=== PATIENT | female | born 1965 | race Caucasian/White ===

== ENCOUNTER 2023-07-02 13:30 | Emergency (ER) | payer OTHER, MEDICARE, SELFPAY ==
[2023-07-02 13:33] VITALS: BP 167/80; PULSE 95; RESP 16; TEMP 36.7; O2SAT 97; BMI 29.4
--- NOTE | 2023-07-02 14:00 | ED.GENADULT ---
HPI - General Adult General Chief complaint: Nausea/Vomiting Stated complaint: Nausea, fluttering heartbeat Time Seen by Provider: 07/02/23 13:43 History of Present Illness HPI narrative: Patient is a 57-year-old female who has a history of Jama's esophagus. She has been diagnosed with an EGD at [facility]. She is scheduled to have an EGD in the next 2-3 weeks but she has had persistent discomfort in epigastrium similar to when she had Jama's flare, she has tried multiple proton pump inhibitors, currently she is on Protonix. She thought for a while she the omeprazole might have been making her have more stomach pain. She has a good amount of anxiety with this whole episode. It makes her feel like she gets carbonation in her throat and that she is somewhat choking. She does not really describe any swallowing difficulty or blockage of food. She is on Coumadin for blood clots in the past and does have Lovenox at home that she can transition to if they are going to do an EGD. She is hoping to get an EGD sooner than the next few weeks. She also reports she has rheumatoid arthritis, and antiphospholipid antibody. She has had blood clots in is in the form of DVT and she is on Coumadin and can transition to Lovenox. She spent 7 hours in the ED within the last few weeks and got some Ativan. She had multiple assessments in basically was set up to see another EGD physician. Related Data Home Medications Medication Instructions Recorded Confirmed fentanyl .ROUTE 07/02/23 hydrochlorothiazide PO 07/02/23 hydromorphone 2 mg tablet 2 mg PO Q6H 07/02/23 07/02/23 (Dilaudid) hyoscyamine sulfate PO 07/02/23 lorazepam 1 mg tablet (Ativan) 1 mg PO DAILY 07/02/23 07/02/23 warfarin 5 mg tablet (Jantoven) 5 mg PO DAILY 07/02/23 07/02/23 warfarin 7.5 mg tablet (Jantoven) 7.5 mg PO DAILY 07/02/23 07/02/23 zolpidem 5 mg tablet (Ambien) 5 mg PO QHS 07/02/23 07/02/23 Allergies Allergy/AdvReac Type Severity Reaction Status Date / Time buprenorphine [From Butrans] Allergy Unknown Verified 07/02/23 13:38 ketorolac [From Toradol] Allergy Unknown Verified 07/02/23 13:38 Review of Systems Status of ROS: Reports: 6 or more systems reviewed and unremarkable except as noted in History and below Exam Narrative: Exam Narrative: Objective: Patient is very anxious Her vital signs show slightly elevated blood pressure, she is afebrile, O2 sats 97% on room air HEENT is unremarkable, throat is clear Neck is supple Pulses regular Abdomen benign soft Extremities are no edema neurologic nonfocal Const: Vital Signs, click to edit/add: Vital Signs - 24 hr 07/02/23 13:33 Temperature 98.1 F Pulse Rate [Pulse Oximeter] 95 Respiratory Rate 16 Blood Pressure [Ri ght Upper Arm] 167/80 H Pulse Oximetry 97 Oxygen Delivery Me thod Room Air Course Vital Signs Vital signs: Initial Vital Signs Temperature 98.1 F 07/02/23 13:33 Temperature Source Temporal Artery Scan 07/02/23 13:33 Pulse Rate 95 07/02/23 13:33 Respiratory Rate 16 07/02/23 13:33 Blood Pressure 167/80 H 07/02/23 13:33 Blood Pressure Mean 109 H 07/02/23 13:33 Blood Pressure Position Sitting 07/02/23 13:33 Pulse Oximetry 97 07/02/23 13:33 Oxygen Delivery Method Room Air 07/02/23 13:33 Vital Signs Temperature 98.1 F 07/02/23 13:33 Pulse Rate 95 07/02/23 13:33 Respiratory Rate 16 07/02/23 13:33 Blood Pressure 167/80 H 07/02/23 13:33 Pulse Oximetry 97 07/02/23 13:33 Oxygen Delivery Method Room Air 07/02/23 13:33 Temperature 98.1 F 07/02/23 13:33 Pulse Rate 95 07/02/23 13:33 Respiratory Rate 16 07/02/23 13:33 Blood Pressure 167/80 H 07/02/23 13:33 Pulse Oximetry 97 07/02/23 13:33 Oxygen Delivery Method Room Air 07/02/23 13:33 Medical Decision Making MDM Narrative Medical decision making narrative: [age] year white female with rheumatoid arthritis, antiphospholipid antibody syndrome, currently on Coumadin, with history of Jama's esophagus and persistent esophagitis type symptoms. She is describing a carbonated feeling in her throat and some congestion, she really does not have heartburn or chest pain, does not really have acid taste in her mouth gets the carbonated feeling. It would seem that prompt EGD would be appropriate. Will see what we can set up for her, at this point I think continuing her present medications seem reasonable. Addendum 2:15 p.m.: The patient feels markedly better knowing that an EGD will be scheduled for her on Friday. She will stop her Coumadin today start Lovenox as planned from her sequins spooler twice a day until 24 hours before her EGD and then will stop it. Instructions will be coming from the EGD department now. Follow-up as per recommendation from the endoscopist. Patient was comfortable this plan and feels that will help her, should continue to take as needed nausea medicine. And continue Protonix. Discharge Plan Discharge Clinical Impression: Esophagitis, Jama's esophagus Patient Disposition: Home w/ Parent or Adult Condition: Stable Additional Instructions: Your EGD is scheduled on 07/07 with an 11:15am procedure time. Please arrive at 10:45am to check in. Enter through the ER and take a left to the [facility]. If you have any questions or need to reschedule, please call [phone]. Stop the Coumadin today on recommendations of EGD Department, would start Lovenox tomorrow twice a day in therapeutic dose, discussed with with your hematology provider. Would also recommend that he stop the Lovenox 24 hours before your EGD. This is again per our EGD physician. Continue your nausea and acid medicine. May use Ativan as needed. Activity Level: Light activity Discharge Diet: Full Liquid Diet Detail: Advance diet as tolerated Prescriptions: No Action fentanyl .ROUTE hydromorphone [Dilaudid] 2 mg tablet 2 mg PO Q6H zolpidem [Ambien] 5 mg tablet 5 mg PO QHS Rx Instructions: may repeat once if no response in 30-60 minutes lorazepam [Ativan] 1 mg tablet 1 mg PO DAILY hyoscyamine sulfate PO hydrochlorothiazide PO warfarin [Jantoven] 5 mg tablet 5 mg PO DAILY warfarin [Jantoven] 7.5 mg tablet 7.5 mg PO DAILY Stand Alone Forms: [facility] Info Instructions
--- OUTSIDE RECORDS SUMMARY | 2023-07-02 14:24 | XMS_ITS | Encounter Summary ---
Author Name Unknown Organization [facility] Address [address] [place] [address] Care Team Providers Care Sweet Pickle Maker Name Role Phone Navdeep Waldron MD Unavailable [phone] Shankar Peñaloza MD Primary Care Provider Shankar Peñaloza MD Unavailable [phone] Richardson Alberts PA-C Unavailable [phone] Shankar Peñaloza MD Unavailable [phone] Marielena Sunshine PA-C Unavailable [phone] Radha Rivas Unavailable Unavailable Marielena Sunshine PA-C Unavailable 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 [facility] Unavailable Reason for Referral * Mental Health Outpatient (Routine: Next available opening) - Pending Review Specialty Diagnoses / Procedures Referred By Arlet t Referred To Contact Behavioral Health Diagnoses Severe episode of recurrent major depressive disorder, without psychotic features (H) Liz Mercado PA-C [address] [place] [address] Referral ID Status Reason Start Date Expiration Date V isits Requested Visits Authorized [id number] Pending Review 06/25/2023 06/24/2024 1 1 Question Answer Services: Psychiatry/Med Management Reason for Referral - REVIEW REFERENCE LINK BELOW: Short-term consultation & return to PCP/Collaborative Care (CCPS) My Clinical Question Is: Has been on many medications and history of seratonin syndrome Scheduling Instructions: [facility] will call you to coordinate your care as prescribed by your provider. If you don't hear from a sales representatives within 2 business days, please call . Comments Please be aware that coverage of these services is subject to the terms and limitations of your health insurance plan. Call member services at your health plan with any benefit or coverage questions. [facility] will call you to coordinate your care as prescribed by your provider. If you don't hear from a sales representatives within 2 business days, please call . GER * Consultation (Routine: Next available opening) - Pending Review Specialty Diagnoses / Procedures Referred By Arlet felton Referred To Contact Gastroenterology Diagnoses 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 Globus sensation Liz Mercado PA-C [address] [place] [address] [address] Referral ID Status Reason Start Date Expiration Date V isits Requested Visits Authorized [id number] Pending Review 06/25/2023 06/24/2024 1 1 Question Answer Reason for Referral: Esophageal Disorders Scheduling Instructions: [facility] will call you to coordinate your care as prescribed by the provider. If you don? t hear from a sales representatives within 2 business days, please call . Comments Please be aware that coverage of these services is subject to the terms and limitations of your health insurance plan. Call member services at your health plan with any benefit or coverage questions. [facility] will call you to coordinate your care as prescribed by the provider. If you don? t hear from a sales representatives within 2 business days, please call . GER Reason for Visit * Reason Comments ER F/U 1. Follow up 023GI concerns, needing an antacid, c/o choking sensation Anxiety 2. Needing medicatio n or refill Encounter Details Date Type Department Care Team (Late st Contact Info) Description 06/25/2023 10:00 AM BLUNGER Office Visit [facility] [id number] [place] [phone] Liz Mercado PA-C [id number] [place] [id number] 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); Globus sensation; Severe episode of recurrent major depressive disorder, without psychotic features (H); Nausea and vomiting in adult; Epigastric pain; Anxiety; Serotonin syndrome; Rheumatoid arthritis involving multiple sites, unspecified whether rheumatoid factor present (H); Anti-phospholipid antibody syndrome (H24) Social History Tobacco Use Types Packs/Day Years Used Date Smoking Tobacco: Former Cigarettes Q uit: 02/12/2021 Smokeless Tobacco: Never Tobacco Cessation:Counseling Given: Not Answered Alcohol Use Standard Drinks/Week Comments No 0 (1 standard drink = 0.6 oz pur e alcohol) PHQ-2 Answer Date Recorded PHQ-2 Score 6 06/23/2023 Adolescent Education Answer Date Record ed Getting School Help Needed Not on file 03/10 Food Insecurity Answer Date Recorded Within the past 12 months, d id you worry that your food would run out before you got money to buy more? No 06/11/2023 Within the past 12 months, d id the food you bought just not last and you didn? t have money to get more? No 06/11/2023 Housing Stability Answer Date Recorded Do you have housing? Yes 06/11/2023 Are you worried about losing your housing? No 06/11/2023 Financial Resource Strain Answer Date R ecorded Within the past 12 months, h ave you or your family members you live with been unable to get utilities (heat, electricity) when it was really needed? No 06/11/2023 Transportation Needs Answer Date Record ed Within the past 12 months, h as lack of transportation kept you from medical appointments, getting your medicines, non-medical meetings or appointments, work, or from getting things that you need? No 06/11/2023 Interpersonal Safety Answer Date Record ed Do you feel physically and e motionally safe where you currently live? Yes 03/11/2023 Within the past 12 months, h ave you been hit, slapped, kicked or otherwise physically hurt by someone? No 03/11/2023 Within the past 12 months, h ave you been humiliated or emotionally abused in other ways by your partner or ex-partner? No 03/11/2023 Sex and Gender Information Value Date Recorded Sex Assigned at Not on file Gender Identity Not on file Sexual Orientation Not on file documented as of this encounter Last Filed Vital Signs Vital Sign Reading Time Taken Comments Blood Pressure 128/84 06/25/2023 9:53 AM BLUNGER Pulse 79 06/25/2023 9:53 AM BLUNGER Temperature 36.8 ??C (98.2 ??F) 06/25/2023 9:53 AM CS T Respiratory Rate 15 06/25/2023 9:53 AM BLUNGER Oxygen Saturation 96% 06/25/2023 9:53 AM BLUNGER Inhaled Oxygen Concentration - - Weight 85.8 kg (189 lb 3.2 oz) 06/25/2023 9:53 A M BLUNGER Height 168.9 cm (5' 6.5) 06/25/2023 9:53 AM BLUNGER Body Mass Index 30.08 06/25/2023 9:53 AM BLUNGER documented in this encounter Patient Instructions * Patient Instructions* Liz Mercado PA-C - 06/25/2023 10:00 AM BLUNGER Referral to Behavioral Health Clinician (BHC)- Radha Rivas or Karina During our visit, I encouraged you talk with our Behavioral Health Clinician (BHC). A BHC would be a great addition to your care team and will support your whole health! What is a Behavioral Health Clinician (BHC)? A BHC is a licensed mental health therapist. They can help you when behaviors, emotions, stress or worries get in the way of your life or health. Your BHC will work with you and your primary care team. Together, you'll come up with a unique care plan that works for you! What will happen when I meet with a [facility]? [facility] ask questions to better understand your concerns. They will provide brief, solution-focused therapy. They can also make referrals to a specialty therapist or other services to help you reach your goals. How do I schedule an appointment with the [facility]? Call and ask for a [facility] appointment. How much time will I spend with the [facility]? First visits are 45-60 minutes. Return visits are typically 20-30 minutes. How does billing work? Outpatient mental health services are billed to insurance. Most plans don't charge a second co-pay if you see your primary care provider (PCP) the same day. Please verify your coverage and ask about your copay. GER * Attachments The following attachments cannot be sent through Care Everywhere. * Acid-Reducing Medicines: General Info (Citizen [place]) documented in this encounter Progress Notes * Liz Mercado PA-C - 06/25/2023 10:00 AM CST Assessment & Plan 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 Seeing [facility] tomorrow. Referral placed and will be faxed for patient. Increased pantoprazole to twice daily and added Pepcid. Reviewed the medications used for reflux with patient so she knows how they work and when to use. - Adult GI Drywall Taper Helper Referral - Consult Only; Future - pantoprazole (PROTONIX) 40 MG EC tablet; Take 1 tablet (40 mg) by mouth 2 times daily - famotidine (PEPCID) 20 MG tablet; Take 1-2 tablets (20-40 mg) by mouth 2 times daily as needed (reflux, globus sensation) Globus sensation As noted above. - Adult GI Drywall Taper Helper Referral - Consult Only; Future - famotidine (PEPCID) 20 MG tablet; Take 1-2 tablets (20-40 mg) by mouth 2 times daily as needed (reflux, globus sensation) Severe episode of recurrent major depressive disorder, without psychotic features (H) Referral to short term psychiatry placed. She has had pharmacogenetics testing previously at her last psychiatrist. We will obtain records. RYAN completed today. - Adult Mental Health Drywall Taper Helper Referral; Future Nausea and vomiting in adult Compazine seems to be the only thing that helps with nausea. Refilled for her today. - prochlorperazine (COMPAZINE) 10 MG tablet; Take 1 tablet (10 mg) by mouth every 6 hours as neededfor nausea or vomiting Epigastric pain As noted above. - prochlorperazine (COMPAZINE) 10 MG tablet; Take 1 tablet (10 mg) by mouth every 6 hours as neededfor nausea or vomiting Anxiety Reviewed the risks with Ativan use along with narcotics and provided Narcan for patient. I recommended not using the lorazepam with the hydromorphone. She states understanding and reports she has been told this previous. Agrees to picker and packer the Narcan to have on hand at home. She is using the Ativan sparingly (has a few tablets left still from the ER visit 2 weeks ago. - LORazepam (ATIVAN) 1 MG tablet; Take 0.5 tablets (0.5 mg) by mouth every 8 hours as needed for anxiety, vomiting or nausea - naloxone (NARCAN) 4 MG/0.1ML nasal spray; [place] 1 spray (4 mg) into one nostril alternating nostrils as needed for opioid reversal every 2-3 minutes until assistance arrives Serotonin syndrome History of serotonin syndrome in the past. Has had difficulty with medications for anxiety/depression. Rheumatoid arthritis involving multiple sites, unspecified whether rheumatoid factor present (H) Follows rheumatology. Anti-phospholipid antibody syndrome (H24) Has had multiple blood clots in the past, on Warfarin. Review of external notes as documented elsewhere in note Review of the result(s) of each unique test - labs from the ER Prescription drug management 48 minutes spent by me on the date of the encounter doing chart review, history and exam, documentation and further activities per the note MED REC REQUIRED Post Medication Reconciliation Status: Discharge medications reconciled and changed, see notes/orders Subjective Genevieve is a 57 year old, presenting for the following health issues: ER F/U (1. Follow up 06/05/2023/GI concerns, needing an antacid, c/o choking sensation ) and Anxiety (2. Needing medication or refill) 06/25/2023 9:48 AM Additional Questions Roomed by Inocencia Accompanied by Self Anxiety History of Present Illness Mental Health Follow-up: Patient presents to follow-up on Depression & Anxiety.Patient's depression since last visit has been: No change The patient is not having other symptoms associated with depression. Patient's anxiety since last visit has been: Worse The patient is having other symptoms associated with anxiety. Any significant life events: No Patient is feeling anxious or having panic attacks. Patient has no concerns about alcohol or drug use. She eats 2-3 servings of fruits and vegetables daily.She consumes 1 sweetened beverage(s) daily.Sheexercises with enough effort to increase her heart rate 60 or more minutes per day. She exercises with enough effort to increase her heart rate 4 days per week. She is taking medications regularly. ED/UC Followup: Facility: [facility] [place] Date of visit: 06/05/2023 Reason for visit: Oral Swelling Palpitations Current Status: Worsening Concern - GI and Anxiety concerns Onset: Description: Request refills and will like GI and anxiety concerns Intensity: moderate Progression of Symptoms: same Accompanying Signs & Symptoms: Previous history of similar problem: Precipitating factors: Worsened by: Alleviating factors: Improved by: Therapies tried and outcome: lorazepam Patient is a 57-year-old female with history of Jama's esophagus, anxiety, hypertension, DVT/PE anticoagulated on Coumadin who presents today for follow-up from the ER. Patient seen and evaluated in the ER on 06/05/2023 with nausea, anxiety and the sensation that her throat is closing. Per ER note patient had been using Compazine and Zofran as needed with no significant relief. She reported she was able to swallow and drink water without difficulty but felt like her throat was closing. She has tried Pepcid and Protonix without relief. Per ER note patient also reported some chest pressure. Patient had EKG, BMP, CBC and troponin obtained in the ER. All testing was grossly normal except BMPshowed a mildly elevated creatinine. Patient was encouraged to follow-up closely with primary care and new referral placed to GI. Patient did not tolerate omeprazole (had side effects). She was switched to pantoprazole 40 mg oncedaily. She is wondering if twice daily dosing would be helpful. She continues to have constant nausea with occasional vomiting in the past week. Lorazepam helps but also causing some sedation. ROS GENERAL: No fevers GI: As noted in HPI Objective BP 128/84 (BP Location: Left arm, Patient Position: Sitting, Cuff Size: Adult Regular) Pulse 79 Temp 98.2 ??F (36.8 ??C) (Oral) Resp 15 Ht 1.689 m (5' 6.5) Wt 85.8 kg (189 lb 3.2 oz) SpO2 96% BMI 30.08 kg/m?? Body mass index is 30.08 kg/m??. Physical Exam GENERAL: No acute distress, speaking in complete sentences, no difficulty breathing HEENT: Normocephalic NEURO: Alert and non-focal PSYCH: Anxious affect, tearful at times. Signed Electronically by: Liz Mercado PA-C GER documented in this encounter Plan of Treatment Upcoming Encounters Date Type Department Care Team (Late st Contact Info) Description 07/16/2023 3:30 PM BLUNGER Office Visit [facility] [id number] [place] [address] Shankar Peñ[place] [address] [place] [address] [place] [address] 2023 3:00 PM BLUNGER Virtual Visit [facility] [address] [place] [address] 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, [facility] [address] [place] [address] 08/13/2023 2:30 PM BLUNGER Office Visit [facility] [address] [place] [address] [place] [address] [place] [address] Scheduled Referrals Name Type Priority Associated Diagnoses Orde r Schedule Adult GI Drywall Taper Helper Referral - Consult Only Referral Routine: Next available opening 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 Globus sensation Expected: 06/25/2023 (Approximate), Expires: 06/25/2024 Adult Mental Health Drywall Taper Helper Referral Referral Routine: Next available opening Severe episode of recurrent major depressive disorder, without psychotic features (H) Expected: 06/25/2023 (Approximate), Expires: 06/25/2024 documented as of this encounter Visit Diagnoses Diagnosis 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- Primary Jama's esophagus Globus sensation Gastrointestinal malfunction arising from mental factors Severe episode of recurrent major depressive disorder, without psychotic features (H) Nausea and vomiting in adult Nausea with vomiting Epigastric pain Abdominal pain, epigastric Anxiety Anxiety state, unspecified Serotonin syndrome Other extrapyramidal disease and abnormal movement disorder Rheumatoid arthritis involving multiple sites, unspecified whether rheumatoid factor present (H) Anti-phospholipid antibody syndrome (H24) Primary hypercoagulable state documented in this encounter Additional Health Concerns Assessment Noted Time PHQ-9 Depression Total Score: 22 024 9:33 AM BLUNGER documented as of this encounter Care Teams Sweet Pickle Maker Relationship Specialty Start Date End Date Shankar Peñaloza MD [address] [place] [address] ROBINA LOYA [address] PCP - General Internal Medicine 09/25/13 Navdeep Waldron MD [facility] [address] [place] [address] Physical Medicine & Rehabilitation - Pain Medicine 07/07/13 Shankar Peñaloza MD [address] [place] [address] ROBINA LOYA [address] Assigned PCP 07/22/16 Richardson Alberts PA-C [address] [place] [address] Physician Environmental Protection Economist Gastroenterology 03/01/22 Shankar Peñaloza MD [address] [place] [address] ROBINA LOYA [address] Assigned Pain Medication Provider 06/17/22 Marielena Sunshine PA-C [address] [facility] [address] [place] [address] Physician Environmental Protection Economist Urology 10/03/22 Radha Rivas Personal Advocate & Liaison (PAL) 11/26/22 Marielena Sunshine PA-C [address] [facility] [address] [place] [address] Assigned Surgical Provider 12/07/22 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 LICSW [address] [place] [address] Shoe Coverer Shoe Coverer - Clinical 06/23/23 documented as of this encounter
--- OUTSIDE RECORDS SUMMARY | 2023-07-02 14:24 | XMS_ITS | Clinical Summary ---
Author Name Unknown Organization [facility] Address [address] [place] [address] Care Team Providers Care Berry Planter Name Role Phone Navdeep Waldron MD Unavailable [phone] Shankar Peñaloza MD Primary Care Provider Shankar Peñaloza MD Unavailable [phone] Richardson Alberts PA-C Unavailable [phone] Shankar Peñaloza MD Unavailable [phone] Marielena Sunshine PA-C Unavailable Radha Rivas Unavailable Unavailable Marielena Sunshine PA-C Unavailable 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 [facility] Unavailable Allergies Active Allergy Reactions Criticality Noted Date Comments Buprenorphine Diarrhea 05/18/2012 Colitis issue -severe . Did not feel well at all on this med. Ketorolac Tromethamine Swelling 05/22/2009 Medications Medication Sig Dispensed Refills Start Date End Date Status Fexofenadine HCl (ARNAV PO) Take 180 mg by mouth daily as needed 0 Active senna (SENOKOT) 8.6 MG tablet Take 1 tablet by mouth every evening 0 Active warfarin ANTICOAGULANT (COUMADIN) 10 MG tablet Take by mouth See Admin Instructions Monitors Chromogenic Factor X via [facility] Alternates between 10 mg and 7.5 mg 0 Active hydrocortisone (WESTCORT) 0.2 % external creamIndications: Dermatitis Apply sparingly to affected area three times daily as needed. 60 g 1 1 Active ondansetron (ZOFRAN ODT) 4 MG ODT tabIndications:Na usea and vomiting in adult,Epigastric pain Take 1 tablet (4 mg) by mouth every 8 hours as needed for nausea 30 tablet 0 2 Active triamcinolone (KENALOG) 0.1 % external creamIndications: Dermatitis Apply topically 2 times daily 30 g 0 3 Active clotrimazole-beta methasone (LOTRISONE) 1-0.05 % external creamIndications: Anal fissure Apply topically 2 times daily as needed (fissure) 30 g 1 3 Active ipratropium (ATROVENT) 0.06 % nasal sprayIndications: Acute recurrent pansinusitis [place] 2 sprays into both nostrils 4 times daily 15 mL 0 3 Active zolpidem (AMBIEN) 5 MG tabletIndications :Primary insomnia Take 1 tablet (5 mg) by mouth every evening as needed for sleep 30 tablet 5 3 Active hydrochlorothiazi de (HYDRODIURIL) 12.5 MG tabletIndications :Benign essential hypertension TAKE 1 TABLET(12.5 MG) BY MOUTH DAILY 90 tablet 0 4 Active HYDROmorphone (DILAUDID) 2 MG tabletIndications :Fibromyalgia Take 1 tablet (2 mg) by mouth every 6 hours as needed for severe pain 80 tablet 0 4 Active fentaNYL (DURAGESIC) 25 mcg/hr 72 [address] patchIndications: Fibromyalgia Place 1 patch onto the skin every 72 hours remove old patch. 10 patch 0 4 Active pantoprazole (PROTONIX) 40 MG EC tabletIndications :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 Take 1 tablet (40 mg) by mouth 2 times daily 180 tablet 1 4 Active famotidine (PEPCID) 20 MG tabletIndications :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,Globus sensation Take 1-2 tablets (20-40 mg) by mouth 2 times daily as needed (reflux, globus sensation) 180 tablet 1 4 Active prochlorperazine (COMPAZINE) 10 MG tabletIndications :Nausea and vomiting in adult,Epigastric pain Take 1 tablet (10 mg) by mouth every 6 hours as needed for nausea or vomiting 30 tablet 1 4 Active naloxone (NARCAN) 4 MG/0.1ML nasal sprayIndications: Anxiety [place] 1 spray (4 mg) into one nostril alternating nostrils as needed for opioid reversal every 2-3 minutes until assistance arrives 0.2 mL 1 4 Active LORazepam (ATIVAN) 1 MG tabletIndications :Anxiety Take 0.5 tablets (0.5 mg) by mouth every 8 hours as needed for anxiety, vomiting or nausea 12 tablet 0 4 Active naloxone (NARCAN) 4 MG/0.1ML nasal sprayIndications: Fibromyalgia [place] 1 spray (4 mg) into one nostril alternating nostrils as needed for opioid reversal every 2-3 minutes until assistance arrives 0.2 mL 1 0 024 Discontinued(Re order (No AVS)) prochlorperazine (COMPAZINE) 10 MG tabletIndications :Infection due to 2019 novel coronavirus,Nause a and vomiting in adult,Epigastric pain Take 1 tablet (10 mg) by mouth every 6 hours as needed for nausea or vomiting 20 tablet 0 2 024 Discontinued(Re order (No AVS)) pantoprazole (PROTONIX) 40 MG EC tabletIndications :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 TAKE 1 TABLET(40 MG) BY MOUTH DAILY 90 tablet 0 3 024 Discontinued(Re order (No AVS)) amoxicillin (AMOXIL) 875 MG tabletIndications :Bacterial sinusitis Take 1 tablet (875 mg) by mouth 2 times daily 14 tablet 0 3 024 Discontinued(Th erapy completed (No AVS)) prochlorperazine (COMPAZINE) 10 MG tablet Take 1 tablet (10 mg) by mouth every 6 hours as needed for nausea or vomiting 20 tablet 0 3 024 Discontinued hydrochlorothiazi de (HYDRODIURIL) 12.5 MG tabletIndications :Benign essential hypertension TAKE 1 TABLET(12.5 MG) BY MOUTH DAILY 30 tablet 0 3 024 Discontinued HYDROmorphone (DILAUDID) 2 MG tabletIndications :Fibromyalgia Take 1 tablet (2 mg) by mouth every 6 hours as needed for severe pain 80 tablet 0 3 024 Discontinued(Re order (No AVS)) fentaNYL (DURAGESIC) 25 mcg/hr 72 hr patchIndications: Fibromyalgia Place 1 patch onto the skin every 72 hours remove old patch. 10 patch 0 3 024 Discontinued(Re order (No AVS)) FLUoxetine (PROZAC) 10 MG capsuleIndication s:Severe episode of recurrent major depressive disorder, without psychotic features (H) Take 1 capsule (10 mg) by mouth daily 30 capsule 0 3 024 Discontinued LORazepam (ATIVAN) 1 MG tablet Take 1 tablet (1 mg) by mouth every 8 hours as needed for anxiety, vomiting or nausea 12 tablet 0 3 024 Discontinued(Re order (No AVS)) FLUoxetine (PROZAC) 10 MG capsuleIndication s:Severe episode of recurrent major depressive disorder, without psychotic features (H) TAKE 1 CAPSULE(10 MG) BY MOUTH DAILY 30 capsule 0 4 024 Discontinued(St opped by Patient (No AVS)) Active Problems Problem Noted Date Diagnosed Date Fibromyalgia 01/21/2023 Jama's esophagus 06/06/2021 Vertigo 04/26/2019 Chronic pain syndrome 12/19/2015 Overview: Patient is followed by SHANKAR PEÑALOZA for ongoing prescription of pain medication. All refills should be approved by this provider, or covering partner. Medication(s): Fentanyl patch, Hydromorphone, Zolpidem. Maximum quantity per month: 10, 60, 30 Clinic visit frequency required: Q 6 months Controlled substance agreement: December 19, 2015 Pain Clinic evaluation in the past: [facility] website verification: Done on 04/30/19 Depression 11/14/2014 Esophageal reflux 08/12/2014 Hypertension 02/28/2014 Insomnia 12/31/2013 Chronic headaches 09/21/2013 Overview: Dr. Yu - neurology DDD (degenerative disc disease), cervical 2013 Overview: Menopause 09/21/2013 Rheumatoid arthritis 09/21/2013 Anxiety state 09/21/2013 Personal history of DVT (deep vein thrombosis) 0 09/21/2013 Colitis 05/06/2012 Anti-phospholipid antibody syndrome (H24) Overview: Dr. Arya RSOS Resolved Problems Problem Noted Date Diagnosed Date Resolved Date Osteoarthritis of left knee, unspecified osteoarthritis type 12/18/2021 01/22/2022 CARDIOVASCULAR SCREENING; LD L GOAL LESS THAN 100 04/08/2010 01/21/2023 florencio [facility] 05/10/2005 0 09/21/2013 Encounters Date Type Department Care Team Description 06/25/2023 10:00 AM FINISH OFF OPERATOR Office Visit [address] [address] Liz Mercado, PADeirdre 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); Globus sensation; Severe episode of recurrent major depressive disorder, without psychotic features (H); Nausea and vomiting in adult; Epigastric pain; Anxiety; Serotonin syndrome; Rheumatoid arthritis involving multiple sites, unspecified whether rheumatoid factor present (H); Anti-phospholipid antibody syndrome (H24) 06/25/2023 Travel 06/23/2023 10:00 AM FINISH OFF OPERATOR Virtual Visit [facility] [address] [address] Koko Tracey MD [place], Spec[place], [facility] Severe episode of recurrent major depressive disorder, without psychotic features (H) 06/23/2023 FCC Extended Documentation [facility] [address] [address] 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 06/20/2023 MyC Medical Advice [address] [address] Koko Tracey MD MyChart Communication (Appointment/) 06/20/2023 [facility]ill [facility] [address] [place] [address] Koko Tracey MD Medication Refill 06/17/2023 MyC Refill [facility] [address] [place] [address] Shankar Peñaloza MD Refill Request 06/11/2023 Marco Antonio Medical Advice [facility] [address] [place] [address] Suzi Yao MA 06/10/2023 Refill [facility] [address] [place] [address] Koko Tracey MD Medication Refill 06/05/2023 4:33 PM FINISH OFF OPERATOR - 06/05/2023 6:04 PM FINISH OFF OPERATOR Emergency [facility] Emergency Dept [address] [place] [address] [place] [address] Ulises Orozco MD Globus sensation; Nausea; History of Jama's esophagus; Anxiety Discharge Disposition: Home or Self Care 06/03/2023 [place] Adv[facility] [address] [place] [address] [address] [place] [address] Radha Rivas Outreach 05/30/2023 Medical Correspondence [facility] Info [facility] [address] [place] [address] Outside, Provider 05/27/2023 1:45 PM FINISH OFF OPERATOR Lab [facility] [address] [place] [address] Antiphospholipid syndrome (H24) (Primary Dx); Benign essential hypertension 05/27/2023 1:30 PM FINISH OFF OPERATOR Allied Health/Nurse Visit [facility] [address] [place] [address] Allied Health Visit (Bp check ) 05/27/2023 Travel 05/20/[address] [place] [address] Shankar Peñaloza MD Refill Request 05/14/2023 [facility] Medical [facility]ice [facility] [address] [place] [address] Ann Vanessa, RN Severe episode of recurrent major depressive disorder, without psychotic features (H) (Primary Dx) 05/14/2023 MyC Refill [address] [place] [address] Shankar Peñaloza MD Refill Request 05/12/2023 8:15 AM FINISH OFF OPERATOR E-Visit [facility] [address] [place] [address] Ania Gomez, JANA MENTAL HEALTH NURSE PRACTITIONER Cough (Entered automatically based on christopher... 05/12/2023 [facility] [address] [place] [address] Nory Howard, RN 05/12/2023 Refill [facility] [address] [place] [address] Koko Tracey MD Medication Refill 05/08/2023 Telephone [facility] [address] [place] [address] Koko Tracey MD Medication Refill 04/16/2023 [facility] [address] [place] [address] Shankar Peñaloza MD 04/13/2023 MyC Refill [address] [place] [address] Shankar Peñaloza MD Refill Request 04/11/2023 1:25 PM CDT - 04/11/2023 3:19 PM CDT Emergency [facility] Emergency Dept [address] [place] [address] Marco Charles MD Nonintractable headache, unspecified chronicity pattern, unspecified headache type; Subtherapeutic international normalized ratio (INR) Discharge Disposition: Home or Self Care 04/11/2023 Travel 04/09/2023 11:30 AM CDT Office Visit [facility] [address] [place] [phone] Koko Tracey MD Severe episode of recurrent major depressive disorder, without psychotic features (H) (Primary Dx); Serotonin syndrome; Bacterial sinusitis; Benign essential hypertension 04/09/2023 Refill [facility] [address] [place] [address] Koko Tracey MD Medication Refill 04/09/2023 Travel from Last 3 Months Immunizations Name Administration Dates Next Due COVID-19 MONOVALENT 12+ (Pfizer) 04/04/2021,09/07,08/30/2020 Pneumococcal 23 valent 05/01/2009 TDAP Vaccine (Adacel) 03/28/2015 Family History Medical History Relation Comments Cancer Mother Cervical Diabetes Mother Relation Status Comments Mother Social History Tobacco Use Types Packs/Day Years [...] on file Sexual Orientation Not on file Last Filed Vital Signs Vital Sign Reading Time Taken Comments Blood Pressure 128/84 06/25/2023 9:53 AM FINISH OFF OPERATOR Pulse 79 06/25/2023 9:53 AM FINISH OFF OPERATOR Temperature 36.8 ??C (98.2 ??F) 06/25/2023 9:53 AM CS T Respiratory Rate 15 06/25/2023 9:53 AM FINISH OFF OPERATOR Oxygen Saturation 96% 06/25/2023 9:53 AM FINISH OFF OPERATOR Inhaled Oxygen Concentration - - Weight 85.8 kg (189 lb 3.2 oz) 06/25/2023 9:53 A M FINISH OFF OPERATOR Height 168.9 cm (5' 6.5) 06/25/2023 9:53 AM FINISH OFF OPERATOR Body Mass Index 30.08 06/25/2023 9:53 AM FINISH OFF OPERATOR Plan of Treatment Upcoming Encounters Date Type Department Care Team (Late st Contact Info) Description 07/16/2023 3:30 PM FINISH OFF OPERATOR Office Visit [facility] [place] [address] [place] [address] Shankar Peñaloza MD [address] [facility] [place] [address] 2023 3:00 PM FINISH OFF OPERATOR Virtual Visit [facility] [place] [address] [place] [address] 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, [facility] [address] [place] [address] 08/13/2023 2:30 PM FINISH OFF OPERATOR Office Visit [facility] [address] [place] [address] [place] [address] [place] [address] Health Maintenance Due Date Last Done Comments CT COLONOGRAPHY 1966 FIT 1966 FLEX SIG 1966 sDNA (Cologuard) 1966 LUNG CANCER SCREENING 2016 ZOSTER IMMUNIZATION (1 of 2) 2016 NICOTINE/TOBACCO CESSATION COUNSELING Q 1 YR 01/03/2022 01/03/2021, 03/03/2017 MAMMO SCREENING 08/04/2022 08/04/2020, 02/08, 09/08/2006, Additional history exists COVID-19 Vaccine (2022- season) 2023 04/04/2021, 09/20/2020, 08/30/2020 INFLUENZA VACCINE (#1) 2023 07/10/2018 (Jorge ed) MEDICARE ANNUAL WELLNESS VISIT 04/08/2023 04/08/2022, 03/03/2017 URINE DRUG SCREEN 04/08/2023 04/08/2022, , 03/03/2017, Additional history exists ANNUAL REVIEW OF HM ORDERS 10/02/2023 10/01/2022 PHQ-9 12/22/2023 06/23/2023, 01/0 08/2023, 03/11/2023, Additional history exists DTAP/TDAP/TD IMMUNIZATION (2 - Td or Tdap) 03/28/2025 03/28/2015 LIPID 04/04/2026 04/04/2021, 02/08, 06/17/2009, Additional history exists ADVANCE CARE PLANNING 04/10/2027 04/10/2022 COLONOSCOPY 2028 2018, 06/28/2008 COLORECTAL CANCER SCREENING 2028 Pneumococcal Vaccine: Pediatrics (0 to 5 Years) and At-Risk Patients (6 to 64 Years) Aged Out 05/01/2009 No longer eligible based on patient's age to complete this topic HEPATITIS C SCREENING Completed 05/03/2009 DEPRESSION ACTION PLAN Completed 08/18/2017, 2017 HIV SCREENING Addressed 07/10/2018 (Declined) Overr idden with the intention of not completing the topic HEPATITIS B IMMUNIZATION Discontinued HPV IMMUNIZATION Aged Out No longer e ligible based on patient's age to complete this topic IPV IMMUNIZATION Aged Out No longer e ligible based on patient's age to complete this topic MENINGITIS IMMUNIZATION Aged Out No l onger eligible based on patient's age to complete this topic PAP Discontinued RSV MONOCLONAL ANTIBODY Aged Out No l onger eligible based on patient's age to complete this topic Procedures Procedure Name Priority Date/Time Associated Diagnosis Comments CBC WITH PLATELETS & DIFFERENTIAL STAT 06/05/2023 12:34 PM FINISH OFF OPERATOR EXTRA RED TOP TUBE STAT 06/05/2023 12 :34 PM FINISH OFF OPERATOR EXTRA BLUE TOP TUBE STAT 06/05/2023 1 2:34 PM FINISH OFF OPERATOR CBC WITH PLATELETS AND DIFFERENTIAL STAT 06/05/2023 12:34 PM FINISH OFF OPERATOR EXTRA TUBE STAT 06/05/2023 12:34 PM FINISH OFF OPERATOR TROPONIN T, HIGH SENSITIVITY STAT 06/05/2023 12:34 PM FINISH OFF OPERATOR BASIC METABOLIC PANEL STAT 06/05/2023 12:34 PM FINISH OFF OPERATOR EKG 12-LEAD, TRACING ONLY STAT 06/05/2023 12:01 PM FINISH OFF OPERATOR FACTOR 10 CHROMOGENIC Routine 05/27/2023 1:46 PM FINISH OFF OPERATOR Antiphospholipid syndrome (H24) BASIC METABOLIC PANEL Routine 05/27/2023 1:32 PM FINISH OFF OPERATOR Benign essential hypertension CT HEAD W/O CONTRAST STAT 04/11/2023 2:18 PM CDT CBC WITH PLATELETS & DIFFERENTIAL STAT 04/11/2023 1:52 PM CDT EXTRA RED TOP TUBE STAT 04/11/2023 1: 52 PM CDT CBC WITH PLATELETS AND DIFFERENTIAL STAT 04/11/2023 1:52 PM CDT EXTRA TUBE STAT 04/11/2023 1:52 PM CDT INR STAT 04/11/2023 1:52 PM CDT BASIC METABOLIC PANEL STAT 04/11/2023 1:52 PM CDT from Last 3 Months Results * Extra Red Top Tube (06/05/2023 12:34 PM FINISH OFF OPERATOR) Only the most recent of2 resultswithin the time period is included. Hold Specimen [facility] 06/05/2023 1:47 PM FINISH OFF OPERATOR [facility] Blood STRUCTURE OF LEFT UPPER LIMB / Unknown Venipuncture / Unknown 06/05/2023 12:34 PM FINISH OFF OPERATOR 06/05/2023 12:46 PM FINISH OFF OPERATOR Ulises Orozco MD LAB - BLOOD ORDERABL ES [facility] Acute Care Lab [address] [facility] Lab (1st floor, no room number) [place] [address], [facility] [phone] * Extra Blue Top Tube (06/05/2023 12:34 PM FINISH OFF OPERATOR) Hold Specimen [facility] 06/05/2023 1:47 PM FINISH OFF OPERATOR [facility] Blood STRUCTURE OF LEFT UPPER LIMB / Unknown Venipuncture / Unknown 06/05/2023 12:34 PM FINISH OFF OPERATOR 06/05/2023 12:46 PM FINISH OFF OPERATOR Ulises Orozco MD LAB - BLOOD ORDERABL ES [facility] Acute Care Lab [address] Lab (1st floor, no room number) [place] [address], [facility] [phone] * CBC with platelets and differential (06/05/2023 12:34 PM FINISH OFF OPERATOR) Only the most recent of2 resultswithin the time period is included. WBC Count 7.9 4.0 - 11.0 10e3/uL 06/05/2023 12:50 PM FINISH OFF OPERATOR [facility] RBC Count 4.56 3.80 - 5.20 10e6/uL 06/05/2023 12:50 PM FINISH OFF OPERATOR [facility] Hemoglobin 13.2 11.7 - 15.7 g/dL 06/05/2023 12:50 PM FINISH OFF OPERATOR [facility] Hematocrit 40.2 35.0 - 47.0 % 06/05/2023 12:50 PM FINISH OFF OPERATOR [facility] MCV 88 78 - 100 fL 06/05/2023 12:50 PM FINISH OFF OPERATOR [facility] MCH 28.9 26.5 - 33.0 pg 06/05/2023 12:50 PM FINISH OFF OPERATOR [facility] MCHC 32.8 31.5 - 36.5 g/dL 06/05/2023 12:50 PM FINISH OFF OPERATOR [facility] RDW 12.5 10.0 - 15.0 % 06/05/2023 12:50 PM FINISH OFF OPERATOR [facility] Platelet Count 217 150 - 450 10e3/uL 06/05/2023 12:50 PM FINISH OFF OPERATOR [facility] % Neutrophils 86 % 06/05/2023 12:50 PM FINISH OFF OPERATOR [facility] % Lymphocytes 10 % 06/05/2023 12:50 PM FINISH OFF OPERATOR [facility] % Monocytes 3 % 06/05/2023 12:50 PM FINISH OFF OPERATOR [facility] % Eosinophils 1 % 06/05/2023 12:50 PM FINISH OFF OPERATOR [facility] % Basophils 0 % 06/05/2023 12:50 PM FINISH OFF OPERATOR [facility] % Immature Granulocytes 0 % 06/05/2023 12:50 PM FINISH OFF OPERATOR [facility] NRBCs per 100 WBC 0 <1 /100 023 12:50 PM FINISH OFF OPERATOR [facility] Absolute Neutrophils 6.8 1.6 - 8.3 10e3/uL 06/05/2023 12:50 PM FINISH OFF OPERATOR [facility] Absolute Lymphocytes 0.8 0.8 - 5.3 10e3/uL 06/05/2023 12:50 PM FINISH OFF OPERATOR [facility] Absolute Monocytes 0.3 0.0 - 1.3 10e3/uL 06/05/2023 12:50 PM FINISH OFF OPERATOR [facility] Absolute Eosinophils 0.1 0.0 - 0.7 10e3/uL 06/05/2023 12:50 PM FINISH OFF OPERATOR [facility] Absolute Basophils 0.0 0.0 - 0.2 10e3/uL 06/05/2023 12:50 PM FINISH OFF OPERATOR [facility] Absolute Immature Granulocytes 0.0 <=0.4 10e3/uL 06/05/2023 12:50 PM FINISH OFF OPERATOR [facility] Absolute NRBCs 0.0 10e3/uL 06/05/2023 12:50 PM FINISH OFF OPERATOR [facility] Blood STRUCTURE OF LEFT UPPER LIMB / Unknown Venipuncture / Unknown 06/05/2023 12:34 PM FINISH OFF OPERATOR 06/05/2023 12:46 PM FINISH OFF OPERATOR Ulises Orozco MD LAB - BLOOD ORDERABL ES LABORATORY [facility] Acute Care Lab [address] [facility] Lab (1st floor, no room number) [place] [address], [facility] [phone] * Troponin T, High Sensitivity (now) (06/05/2023 12:34 PM FINISH OFF OPERATOR) Troponin T, High Sensitivity 9 <=14 ng/L 06/05/2023 1:21 PM FINISH OFF OPERATOR [facility] Comment: Either a High Sensitivity Troponin T baseline (0 hours) value = 100 ng/L, or an increase in High Sensitivity Troponin T = 7 ng/L at 2 hours compared to 0 hours (2-0 hours), suggests myocardial injury, and urgent clinical attention is required. ?? If the 2-0 hours increase is <7 ng/L, a High Sensitivity Troponin T result above gender-specific reference ranges warrants further evaluation. Recommendations for further evaluation include correlation with clinical decision-making tool (e.g., HEART), a 3rd High Sensitivity Troponin T test 2 hours after the 2nd (a 20% change from baseline would represent concern), admission for observation, close PCC/cardiology follow-up, or urgent outpatient provocative testing. Blood STRUCTURE OF LEFT UPPER LIMB / Unknown Venipuncture / Unknown 06/05/2023 12:34 PM FINISH OFF OPERATOR 06/05/2023 12:46 PM FINISH OFF OPERATOR Ulises Orozco MD LAB - BLOOD ORDERABL ES LABORATORY [facility] Acute Care Lab [address] [facility] Lab (1st floor, no room number) [place] [address], [facility] [phone] * (ABNORMAL) Basic metabolic panel (BMP) (06/05/2023 12:34 PM FINISH OFF OPERATOR) Only the most recent of3 resultswithin the time period is included. Sodium 139 135 - 145 mmol/L 06/05/2023 1:21 PM [facility] Comment:Reference intervals for this test were updated on 03/04/2023 to more accurately reflect our healthy population. There may be differences in the flagging of prior results with similar values performed with this method. Interpretation of those prior results can be made in the context of the updated reference intervals. Potassium 3.9 3.4 - 5.3 mmol/L 06/05/2023 1:21 PM [facility] Chloride 102 98 - 107 mmol/L 06/05/2023 1:21 PM [facility] Carbon Dioxide (CO2) 24 22 - 29 mmol/L 06/05/2023 1:21 PM [facility] Anion Gap 13 7 - 15 mmol/L 06/05/2023 1:21 PM [facility] Urea Nitrogen 18.4 6.0 - 20.0 mg/dL 06/05/2023 1:21 PM [facility] Creatinine 0.97(H) 0.51 - 0.95 mg/dL 06/05/2023 1:21 PM [facility] GFR Estimate 68 >60 mL/min/1. 73m2 06/05/2023 1:21 PM [facility] Calcium 9.4 8.6 - 10.0 mg/dL 06/05/2023 1:21 PM [facility] Glucose 117(H) 70 - 99 mg/dL 06/05/2023 1:21 PM FINISH OFF OPERATOR [facility] Blood STRUCTURE OF LEFT UPPER LIMB / Unknown Venipuncture / Unknown 06/05/2023 12:34 PM FINISH OFF OPERATOR 06/05/2023 12:46 PM FINISH OFF OPERATOR Ulises Orozco MD LAB - BLOOD ORDERABL ES [facility] Acute Care Lab [address] Lab (1st floor, no room number) [place] [address], [facility] [phone] * EKG 12-lead, tracing only (06/05/2023 12:01 PM FINISH OFF OPERATOR) Systolic Blood Pressure mmHg RADIOLOGY RESULTS Diastolic Blood Pressure mmHg RADIOLOGY RESULTS Ventricular Rate 69 BPM RAD IOLOGY RESULTS Atrial Rate 69 BPM RADIOLOG Y RESULTS [place] Interval 158 ms RADIOLOG Y RESULTS QRS Duration 86 ms RADIOLO GY RESULTS QT 428 ms RADIOLOGY RESULTS QTc 458 ms RADIOLOGY RESULTS P [place] 82 degrees RADIOLOGY RESULTS R AXIS 77 degrees RADIOLOGY RESULTS T [place] 59 degrees RADIOLOGY RESULTS Interpretation ECG Sinus rhythm Normal ECG When compared with ECG of 26-APR-2019 10:02, No significant change was found Unconfirmed report - interpretation of this ECG is computer generated - see medical record for final interpretation Confirmed by - EMERGENCY ROOM, PHYSICIAN ([id number]), assistant film editor [facility] ([id number]) on 06/05/2023 12:08:34 PM RADIOLOGY RESULTS 06/05/2023 12:0 1 PM FINISH OFF OPERATOR 06/05/2023 12:08 PM FINISH OFF OPERATOR Ulises Orozco MD ECG ORDERABLES RADIOLOGY RESULTS * (ABNORMAL) Factor 10 chromogenic (05/27/2023 1:46 PM FINISH OFF OPERATOR) Factor 10 Chromogenic 44(L) 70 - 130 % 05/29/2023 8:32 AM FINISH OFF OPERATOR [facility] COAGULATION Blood BLOOD SPECIMEN / Unknown Venipuncture / Unknown 05/27/2023 1:46 PM FINISH OFF OPERATOR 05/27/2023 1:47 PM FINISH OFF OPERATOR Narrative [facility] SPECIAL COAGULATION - 05/29/2023 8:32 AM FINISH OFF OPERATOR Therapeutic Range: ??A Chromogenic Factor 10 level of approximately 20-40% inversely correlates with an INR of 2-3 for patients receiving Warfarin. Chromogenic Factor 10 levels below 20% indicate an INR greater than 3 and levels above 40% indicate an INR less than 2. Jose Moore MD LAB - BLOOD ORDERABL ES SPECIAL COAGULATION Special Coagulation [address] [facility] [address] Building, Room [address] [place] [id number] [phone] * Head CT w/o contrast (04/11/2023 2:18 PM CDT) Anatomical Region Laterality Modality Head, SUBRAD CT NEURO, SUBRA D CT NEURO, UMP CT NEURO, RAD CT Computed Tomography Impressions 04/11/2023 3:11 PM CDT IMPRESSION: 1. ??No acute intracranial abnormality. 2. ??Chronic right peripheral cerebellar infarction. 3. ??Small 6 mm calcification along the left posterior falx, possible small meningioma. Consider follow-up brain MRI for further characterization. YASMINE LAWSON MD SYSTEM ID: ??[id number] Narrative 04/11/2023 3:[address] OF THE HEAD WITHOUT CONTRAST ??04/11/2023 2:18 PM COMPARISON: Brain MRI 04/26/2019. HISTORY: Headache, on warfarin. TECHNIQUE: Axial CT images of the head from the skull base to the vertex were acquired without IV contrast. Dose reduction techniques were used. FINDINGS: INTRACRANIAL CONTENTS: No intracranial hemorrhage, extraaxial collection, or mass effect. No CT evidence of acute infarct. Chronic right cerebellar infarction unchanged from prior brain MRI. Normal parenchymal density for age. The ventricles and sulci are normal for age. Small calcification along the left posterior falx measuring 6 mm, possible small meningioma. VISUALIZED ORBITS/SINUSES/MASTOIDS: No significant orbital abnormality. ??No significant paranasal sinus mucosal disease. No significant middle ear or mastoid effusion. OSSEOUS STRUCTURES/SOFT TISSUES: No significant abnormality. Procedure Note Yasmine Lawson MD - 04/11/2023 CT OF THE HEAD WITHOUT CONTRAST 04/11/2023 2:18 PM COMPARISON: Brain MRI 04/26/2019. HISTORY: Headache, on warfarin. TECHNIQUE: Axial CT images of the head from the skull base to the vertex were acquired without IV contrast. Dose reduction techniques were used. FINDINGS: INTRACRANIAL CONTENTS: No intracranial hemorrhage, extraaxial collection, or mass effect. No CT evidence of acute infarct. Chronic right cerebellar infarction unchanged from prior brain MRI. Normal parenchymal density for age. The ventricles and sulci are normal for age. Small calcification along the left posterior falx measuring 6 mm, possible small meningioma. VISUALIZED ORBITS/SINUSES/MASTOIDS: No significant orbital abnormality. No significant paranasal sinus mucosal disease. No significant middle ear or mastoid effusion. OSSEOUS STRUCTURES/SOFT TISSUES: No significant abnormality. IMPRESSION: 1. No acute intracranial abnormality. 2. Chronic right peripheral cerebellar infarction. 3. Small 6 mm calcification along the left posterior falx, possible small meningioma. Consider follow-up brain MRI for further characterization. YASMINE LAWSON MD SYSTEM ID: [id number] Marco Charles MD IMG CT ORDERABLES * (ABNORMAL) INR (04/11/2023 1:52 PM CDT) INR 1.62(H) 0.85 - 1.15 04/11/2023 2:09 PM CDT LABORATORY Blood BLOOD SPECIMEN / Unknown Venipuncture / Unknown 04/11/2023 1:52 PM CDT 04/11/2023 1:59 PM CDT Marco Charles MD LAB - BLOOD ORDER [facility] Lab [address] Lab (1st floor, no room number) [place] [address], [facility] [phone] from Last 3 Months Advance Directives For more information, please contact: [phone] Latest Code Status on File Code Status Date Activated Date Inactivated Comments Full Code 04/27/2019 11:40 AM 06/04/2021 1:04 PM Question Answer Comments Code status determined by: Discussion wi th patient/legal decision maker Code Status History Code Status Date Activated Date Inactivated Comments Full Code 04/26/2019 1:53 PM 04/27/2019 11:40 AM Question Answer Comments Code status determined by: Discussion wi th patient/legal decision maker Full Code 07/10/2012 3:31 PM 07/13/2012 6:59 PM Full Code 05/09/2012 11:13 AM 07/10/2012 3:31 PM Full Code 05/06/2012 7:22 PM 05/09/2012 11:13 AM Care Teams Berry Planter Relationship Specialty Start Date End Date Shankar Peñaloza MD [address] [place] [address] [place] LOYA [address] PCP - General Internal Medicine 09/25/13 Navdeep Waldron MD [facility] [address] [place] [address] Physical Medicine & Rehabilitation - Pain Medicine 07/07/13 Shankar Peñaloza MD [address] [place] [address] [place] LO[place] [address] Assigned PCP 07/22/16 Richardson Alberts PA-C [address] [place] [address] Physician Financial Services Counselor Gastroenterology 03/01/22 Shankar Peñaloza MD [address] [place] [address] ROB[place] LOYA [address] Assigned Pain Medication Provider 06/17/22 Marielena Sunshine PA-C [address] [facility] [address] [place] [address] Physician Financial Services Counselor Urology 10/03/22 Radha Rivas Personal Advocate & Liaison (PAL) 11/26/22 Marielena Sunshine PA-C [address] [facility] [address] [place], [place] [id number] Assigned Surgical Provider 12/07/22 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 LICSW [address] [place] [address] Lining Layer Lining Layer - Clinical 06/23/23
--- OUTSIDE RECORDS SUMMARY | 2023-07-02 14:24 | XMS_ITS | Encounter Summary ---
Author Name Unknown Organization [facility] Address [address] [place] [address]. [place] [address] Care Team Providers Care Epic Willow Specialist Name Role Phone Navdeep Waldron MD Unavailable [phone] Shankar Peñaloza MD Primary Care Provider [phone] Shankar Peñaloza MD Unavailable [phone] Richardson Alberts-C Unavailable [phone] Shankar Peñaloza MD Unavailable [phone] Marielena Sunshine PA-C Unavailable Radha Rivas Unavailable Unavailable Marielena Sunshine PA-C Unavailable 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SW Unavailable Reason for Visit * Reason Onset Date Comments MyChart Communication 06/20/2023 Appointmen t Encounter Details Date Type Department Care Team (Late st Contact Info) Description 06/20/2023 Marco Antonio Medical Ciaran Feliz [facility] [address] [place] [address] [place] [address] [place] [address] Kai Communication (Appointment/) Social History Tobacco Use Types Packs/Day Years Used Date Smoking Tobacco: Former Cigarettes Q uit: 02/12/2021 Smokeless Tobacco: Never Alcohol Use Standard Drinks/Week Comments No 0 [...] on file documented as of this encounter Miscellaneous Notes * Telephone Encounter - Christel Meléndez RN - 06/24/2023 2:43 PM ROLLER MAN Spoke with patient and reviewed provider recommendations. Patient verbalized understanding. Patientscheduled appointment with provider at [facility] clinic tomorrow AM: Appointments in Next Year Jun 25, 2023 10:00 AM (Arrive by 9:40 AM) Provider Visit with Liz Mercado PA-C [facility] [phone] Patient states that she will call [facility] this afternoon to schedule appointment. Patient instructed to call back with any new or worsening symptoms. Patient verbalized understanding and agrees with plan. Christel Penaloza RN, BSN, PHN ER MAN * Telephone Encounter - Christel Meléndez RN - 06/24/2023 1:54 PM ROLLER MAN Contacted patient to get more information about symptoms. Patient reports that she has had severe nausea and anxiety due to persistent globus sensation. Patient has history of Jama's esophagus. Patient was seen in the ER on 06/05/23 for above concerns. Patient was evaluated and ER provider recommended close outpatient follow up with PCP and GI. Patient's current PCP is Dr. Peñaloza, but patient reports that would like Dr. Koko Tracey to be new PCP (most recent OV with Dr. Sutherland was 04/09/23). Patient reports that she was on omeprazole for 1.5 years, had severe stomach pain so stopped herself. After stopping omeprazole Jama's esophagus acted up so patient saw Dr. Perez Flannery who started patient on Protonix once daily. Patient is asking if she can take this twice daily instead since symptoms are not relieved by once daily dosing. Patient is also requesting refill of lorazepam for anxietyrelated to globus sensation. Patient has a few compazine tablets left that helps with nausea, wouldalso like this refilled. Patient states that she has had some vomiting recently (new symptom this past week). Patient vomited in total 2-3 times on separate occasions. Patient reports foamy vomit mixed with food particles. No dry heaving. Eating smaller portion sizes helps. Patient has not scheduled with GI yet as recommended by ER provider and states that she would like to be seen at [facility] in [place] instead. Referral faxed to [facility] at [phone] and patient advised to call this afternoon to schedule appointment. Huddled with Dr. Sutherland who advised that patient should be seen by any available provider this week to address above concerns as well as recommended that [facility]. Christel Penaloza RN, BSN, PHN ER MAN * Telephone Encounter - Elvi Quinones RN - 06/20/2023 3:52 PM CST Routed to [facility], pt wants earlier appointment with Dr Tracey, has different PCP, has appointment withP 07/16/23 Please call pt to check on earlier appointment, see Mychart message Elvi Quinones RN, BSN [facility] ER MAN documented in this encounter Plan of Treatment Upcoming Encounters Date Type Department Care Team (Late st Contact Info) Description 07/16/2023 3:30 PM ROLLER MAN Office Visit [address] [place] [address] Shankar Peña[place]za [place] [address] [place] [address] ROB[place] LOYA [address] 2023 3:00 PM ROLLER MAN Virtual Visit [facility] [address] [place] [address] 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, [address] [address] 08/13/2023 2:30 PM ROLLER MAN Office Visit [facility] [address] [place] [address] [place] [address] [place] [address] documented as of this encounter Visit Diagnoses Not on filedocumented in this encounter Additional Health Concerns Assessment Noted Time PHQ-9 Depression Total Score: 21 024 4:47 PM ROLLER MAN documented as of this encounter Care Teams Epic Willow Specialist Relationship Specialty Start Date End Date Shankar Peñaloza MD [address] [place] [address] [place] LO[place] [address] PCP - General Internal Medicine 09/25/13 Navdeep Waldron MD [facility] [address] [place] [address] Physical Medicine & Rehabilitation - Pain Medicine 07/07/13 Shankar Peñaloza MD [address] [place] [address] [place] [address] Assigned PCP 07/22/16 Richardson Alberts PA-C [address] [place] [address] Physician Ocularist Gastroenterology 03/01/22 Shankar Peñaloza MD [address] [place] [address] [place] [address] Assigned Pain Medication Provider 06/17/22 Marielena Sunshien PA-C [address] [facility] [address] [place] [address] Physician Ocularist Urology 10/03/22 Radha Rivas Personal Advocate & Liaison (PAL) 11/26/22 Marielena Sunshine PA-C [address] [facility] [address] [place], [place] [address] Assigned Surgical Provider 12/07/22 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 LICSW [address] [place] [address] Machine Strap Buckler Machine Strap Buckler - Clinical 06/23/23 documented as of this encounter
--- OUTSIDE RECORDS SUMMARY | 2023-07-02 14:24 | XMS_ITS | Referral Summary ---
Author Name Unknown Organization [place] Address [address] [place] [address] Care Team Providers Care Brake Coupler Dinkey Name Role Phone Navdeep Waldron MD Unavailable [phone] Shankar Peñaloza MD Primary Care Provider [phone] Shankar Peñaloza MD Unavailable [phone] Richardson Alberts PA-C Unavailable [phone] Shankar Peñaloza MD Unavailable [phone] Marielena Sunshine PA-C Unavailable Radha Rivas Unavailable Unavailable Marielena Sunshine PA-C Unavailable 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 [facility] Unavailable Encounters Date Type Department Care Team Description 06/25/2023 Travel 06/25/2023 10:00 AM DATA RECOVERY PLANNER Office Visit [address] [address] Liz Mercado PA-C 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); Globus sensation; Severe episode of recurrent major depressive disorder, without psychotic features (H); Nausea and vomiting in adult; Epigastric pain; Anxiety; Serotonin syndrome; Rheumatoid arthritis involving multiple sites, unspecified whether rheumatoid factor present (H); Anti-phospholipid antibody syndrome (H24) 06/23/2023 FCC Extended Documentation [facility] [address] [phone] 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 PRICE ANALYST 06/23/2023 10:00 AM DATA RECOVERY PLANNER Virtual Visit [facility] [address] [phone] Koko Tracey MD Sinyigaya, Speciose, PRICE ANALYST Severe episode of recurrent major depressive disorder, without psychotic features (H) 06/20/2023 MyC Medical Advice [facility] [address] [place] [phone] Koko Tracey MD MyChart Communication (Appointment/) 06/20/2023 [facility] [address] [place] [phone] Koko Tracey MD Medication Refill 06/17/2023 MyC Refill [facility] [address] [facility] [address] [place] [phone] Shankar Peñaloza MD Refill Request 06/11/2023 MyC [facility] [address] [place] [phone] Suzi Yao MA 06/10/2023 [facility] [address] [place] [phone] Koko Tracey MD Medication Refill 06/05/2023 4:33 PM DATA RECOVERY PLANNER - 06/05/2023 6:04 PM DATA RECOVERY PLANNER Emergency [facility] Emergency Dept [address] [place] [address] Ulises Orozco MD Globus sensation; Nausea; History of Jama's esophagus; Anxiety Discharge Disposition: Home or Self Care 06/03/2023 MyC Medical Advice [facility] [address] [facility] [address] [place] [address] Radha Rivas Outreach 05/30/2023 Medical Correspondence [facility] Info Mgmt [facility] [address] [facility] [place] [address] Outside, Provider 05/27/2023 Travel 05/27/2023 1:30 PM DATA RECOVERY PLANNER Allied Health/Nurse Visit [facility] [place] [address] [place] [address] Allied Health Visit (Bp check ) 05/27/2023 1:45 PM DATA RECOVERY PLANNER Lab [facility] Laboratory [address] [place] [address] Antiphospholipid syndrome (H24) (Primary Dx); Benign essential hypertension 05/20/2023 Refill [facility] [address] [place] [address] [address] [place] [address] Shankar Peñaloza MD Refill Request 05/14/2023 MyC Medical Advice [facility] [place] [address] [place] [address] Ann Vanessa RN Severe episode of recurrent major depressive disorder, without psychotic features (H) (Primary Dx) 05/14/2023 MyC Refill [facility] [address] [facility] [address] [place] [address] Shankar Peñaloza MD Refill Request 05/12/2023 MyC Medical Advice [facility] [place] [address] [place] [address] Nory Howard RN 05/12/2023 Refill [facility] [place] [address] [place] [address] Koko Tracey MD Medication Refill 05/12/2023 8:15 AM DATA RECOVERY PLANNER E-Visit [facility] [address] [place] [phone] Ania Gomez, BUFFING AND SUEDING MACHINE OPERATOR HARM REDUCTION WORKER Cough (Entered automatically based on christopher... 05/08/2023 Telephone [facility] [address] [place] [phone] Koko Tracey MD Medication Refill 04/16/2023 MyC Medical Advice [address] [place] [phone] Shankar Peñaloza MD 04/13/2023 MyC Refill [address] [place] [address] Shankar Peñaloza MD Refill Request 04/11/2023 Travel 04/11/2023 1:25 PM CDT - 04/11/2023 3:19 PM CDT Emergency [facility] Emergency Dept [address] [place] [address] Marco Charles MD Nonintractable headache, unspecified chronicity pattern, unspecified headache type; Subtherapeutic international normalized ratio (INR) Discharge Disposition: Home or Self Care 04/09/2023 Refill [facility] [address] [place] [phone] Koko Tracey MD Medication Refill 04/09/2023 Travel 04/09/2023 11:30 AM CDT Office Visit [facility] [address] [place] [phone] Koko Tracey MD Severe episode of recurrent major depressive disorder, without psychotic features (H) (Primary Dx); Serotonin syndrome; Bacterial sinusitis; Benign essential hypertension from Last 3 Months Allergies Active Allergy Reactions Criticality Noted Date [...] Admin Instructions Monitors Chromogenic Factor X via [facility] Alternates between 10 mg and 7.5 [...] 0.06 % nasal sprayIndications: Acute recurrent pansinusitis [place] 2 sprays into both nostrils 4 times [...] naloxone (NARCAN) 4 MG/0.1ML nasal sprayIndications: Anxiety [place] 1 spray (4 mg) into one nostril alternating nostrils as needed for opioid reversal every 2-3 minutes until assistance arrives 0.2 mL 1 4 Active LORazepam (ATIVAN) 1 MG tabletIndications :Anxiety Take 0.5 tablets (0.5 mg) by mouth every 8 hours as needed for anxiety, vomiting or nausea 12 tablet 0 4 Active naloxone (NARCAN) 4 MG/0.1ML nasal sprayIndications: Fibromyalgia [place] 1 spray (4 mg) into one nostril [...] 2015 Pain Clinic evaluation in the past: [facility] Last [facility] website verification: Done on 04/30/19 Depression 11/14/2014 Esophageal reflux 08/12/2014 Hypertension 02/28/2014 Insomnia 12/31/2013 Chronic headaches 09/21/2013 Overview: Dr. Yu - neurology DDD (degenerative disc disease), cervical 2013 Overview: Menopause 09/21/2013 Rheumatoid arthritis 09/21/2013 Anxiety state 09/21/2013 Personal history of DVT (deep vein thrombosis) 0 09/21/2013 Colitis 05/06/2012 Anti-phospholipid antibody syndrome (H24) Overview: Dr. Arya ROSS Resolved Problems Problem Noted Date Diagnosed Date Resolved Date Osteoarthritis of left knee, unspecified osteoarthritis type 12/18/2021 01/22/2022 CARDIOVASCULAR SCREENING; LD L GOAL LESS THAN 100 04/08/2010 01/21/2023 florencio [facility] 05/10/2005 0 09/21/2013 Immunizations Name Administration Dates Next Due COVID-19 MONOVALENT 12+ (Pfizer) 04/04/2021,0409/2020,08/30/2020 Pneumococcal 23 valent 05/01/2009 TDAP Vaccine (Adacel) 03/28/2015 Social History Tobacco Use Types Packs/Day Years [...] Comments Blood Pressure 128/84 06/25/2023 9:53 AM DATA RECOVERY PLANNER Pulse 79 06/25/2023 9:53 AM DATA RECOVERY PLANNER Temperature 36.8 ??C (98.2 ??F) 06/25/2023 9:53 AM CS T Respiratory Rate 15 06/25/2023 9:53 AM DATA RECOVERY PLANNER Oxygen Saturation 96% 06/25/2023 9:53 AM DATA RECOVERY PLANNER Inhaled Oxygen Concentration - - Weight 85.8 kg (189 lb 3.2 oz) 06/25/2023 9:53 A M DATA RECOVERY PLANNER Height 168.9 cm (5' 6.5) 06/25/2023 9:53 AM DATA RECOVERY PLANNER Body Mass Index 30.08 06/25/2023 9:53 AM DATA RECOVERY PLANNER Plan of Treatment Upcoming Encounters Date Type Department Care Team (Late st Contact Info) Description 07/16/2023 3:30 PM DATA RECOVERY PLANNER Office Visit [facility] [place] [address] [place] [address] Shankar Peñaloza MD [address] [facility] [place] [id number] 2023 3:00 PM DATA RECOVERY PLANNER Virtual Visit [facility] [place] [address] [place] [address] GerhardshariJob ponce, PRICE ANALYST [address] [place] [address] 08/13/2023 2:30 PM DATA RECOVERY PLANNER [facility] [address] [facility] [place] [address] [place] [address] [facility] [place] [id number] Procedures Procedure Name Priority Date/Time Associated Diagnosis Comments CBC WITH PLATELETS & DIFFERENTIAL STAT 06/05/2023 12:34 PM DATA RECOVERY PLANNER EXTRA RED TOP TUBE STAT 06/05/2023 12 :34 PM DATA RECOVERY PLANNER EXTRA BLUE TOP TUBE STAT 06/05/2023 1 2:34 PM DATA RECOVERY PLANNER CBC WITH PLATELETS AND DIFFERENTIAL STAT 06/05/2023 12:34 PM DATA RECOVERY PLANNER EXTRA TUBE STAT 06/05/2023 12:34 PM DATA RECOVERY PLANNER TROPONIN T, HIGH SENSITIVITY STAT 06/05/2023 12:34 PM DATA RECOVERY PLANNER BASIC METABOLIC PANEL STAT 06/05/2023 12:34 PM DATA RECOVERY PLANNER EKG 12-LEAD, TRACING ONLY STAT 06/05/2023 12:01 PM DATA RECOVERY PLANNER FACTOR 10 CHROMOGENIC Routine 05/27/2023 1:46 PM DATA RECOVERY PLANNER Antiphospholipid syndrome (H24) BASIC METABOLIC PANEL Routine 05/27/2023 1:32 PM DATA RECOVERY PLANNER Benign essential hypertension CT HEAD W/O CONTRAST [...] Extra Red Top Tube (06/05/2023 12:34 PM DATA RECOVERY PLANNER) Only the most recent of2 resultswithin the time period is included. Hold Specimen [facility] 06/05/2023 1:47 PM DATA RECOVERY PLANNER [facility] LAB[facility]AT[facility] Blood STRUCTURE OF LEFT UPPER LIMB / Unknown Venipuncture / Unknown 06/05/2023 12:34 PM DATA RECOVERY PLANNER 06/05/2023 12:46 PM DATA RECOVERY PLANNER Ulises Orozco MD LAB - BLOOD ORDERABL ES [facility] Lab [address] Lab (1st floor, no room number) [place] [address], [facility] [phone] * Extra Blue Top Tube (06/05/2023 12:34 PM DATA RECOVERY PLANNER) Hold Specimen [facility] 06/05/2023 1:47 PM DATA RECOVERY PLANNER [facility] Blood STRUCTURE OF LEFT UPPER LIMB / Unknown Venipuncture / Unknown 06/05/2023 12:34 PM DATA RECOVERY PLANNER 06/05/2023 12:46 PM DATA RECOVERY PLANNER Ulises Orozco MD LAB - BLOOD ORDERABL ES [facility] Acute Care Lab [address] Lab (1st floor, no room number) [place] [address], [facility] [phone] * CBC with platelets and differential (06/05/2023 12:34 PM DATA RECOVERY PLANNER) Only the most recent of2 resultswithin the time period is included. WBC Count 7.9 4.0 - 11.0 10e3/uL 06/05/2023 12:50 PM DATA RECOVERY PLANNER [facility] RBC Count 4.56 3.80 - 5.20 10e6/uL 06/05/2023 12:50 PM DATA RECOVERY PLANNER [facility] Hemoglobin 13.2 11.7 - 15.7 g/dL 06/05/2023 12:50 PM DATA RECOVERY PLANNER [facility] Hematocrit 40.2 35.0 - 47.0 % 06/05/2023 12:50 PM DATA RECOVERY PLANNER [facility] MCV 88 78 - 100 fL 06/05/2023 12:50 PM DATA RECOVERY PLANNER [facility] MCH 28.9 26.5 - 33.0 pg 06/05/2023 12:50 PM DATA RECOVERY PLANNER [facility] MCHC 32.8 31.5 - 36.5 g/dL 06/05/2023 12:50 PM DATA RECOVERY PLANNER [facility] RDW 12.5 10.0 - 15.0 % 06/05/2023 12:50 PM DATA RECOVERY PLANNER [facility] Platelet Count 217 150 - 450 10e3/uL 06/05/2023 12:50 PM DATA RECOVERY PLANNER [facility] % Neutrophils 86 % 06/05/2023 12:50 PM DATA RECOVERY PLANNER [facility] % Lymphocytes 10 % 06/05/2023 12:50 PM DATA RECOVERY PLANNER [facility] % Monocytes 3 % 06/05/2023 12:50 PM DATA RECOVERY PLANNER [facility] % Eosinophils 1 % 06/05/2023 12:50 PM DATA RECOVERY PLANNER [facility] % Basophils 0 % 06/05/2023 12:50 PM DATA RECOVERY PLANNER [facility] % Immature Granulocytes 0 % 06/05/2023 12:50 PM DATA RECOVERY PLANNER [facility] NRBCs per 100 WBC 0 <1 /100 023 12:50 PM DATA RECOVERY PLANNER [facility] Absolute Neutrophils 6.8 1.6 - 8.3 10e3/uL 06/05/2023 12:50 PM DATA RECOVERY PLANNER [facility] Absolute Lymphocytes 0.8 0.8 - 5.3 10e3/uL 06/05/2023 12:50 PM DATA RECOVERY PLANNER [facility] Absolute Monocytes 0.3 0.0 - 1.3 10e3/uL 06/05/2023 12:50 PM DATA RECOVERY PLANNER [facility] Absolute Eosinophils 0.1 0.0 - 0.7 10e3/uL 06/05/2023 12:50 PM DATA RECOVERY PLANNER [facility] Absolute Basophils 0.0 0.0 - 0.2 10e3/uL 06/05/2023 12:50 PM DATA RECOVERY PLANNER [facility] Absolute Immature Granulocytes 0.0 <=0.4 10e3/uL 06/05/2023 12:50 PM DATA RECOVERY PLANNER [facility] Absolute NRBCs 0.0 10e3/uL 06/05/2023 12:50 PM DATA RECOVERY PLANNER [facility] Blood STRUCTURE OF LEFT UPPER LIMB / Unknown Venipuncture / Unknown 06/05/2023 12:34 PM DATA RECOVERY PLANNER 06/05/2023 12:46 PM DATA RECOVERY PLANNER Ulises Orozco MD LAB - BLOOD ORDERABL ES LABORATORY [facility] Acute Care Lab [address] [facility] Lab (1st floor, no room number) [place] [address], [facility] [phone] * Troponin T, High Sensitivity (now) (06/05/2023 12:34 PM DATA RECOVERY PLANNER) [facility] Troponin T, High Sensitivity 9 <=14 ng/L 06/05/2023 1:21 PM DATA RECOVERY PLANNER [facility] Comment: Either a High Sensitivity [...] Unknown Venipuncture / Unknown 06/05/2023 12:34 PM DATA RECOVERY PLANNER 06/05/2023 12:46 PM DATA RECOVERY PLANNER Ulises Orozco MD LAB - BLOOD ORDERABL ES [facility] Lab [address] [facility] Lab (1st floor, no room number) [place] [address], [facility] [phone] * (ABNORMAL) Basic metabolic panel (BMP) (06/05/2023 12:34 PM DATA RECOVERY PLANNER) Only the most recent of3 resultswithin the time period is included. [facility] Sodium 139 135 - 145 mmol/L 06/05/2023 1:21 PM [facility] Comment:Reference intervals for this test were updated on 03/04/2023 to more accurately reflect our healthy population. There may be differences in the flagging of prior results with similar values performed with this method. Interpretation of those prior results can be made in the context of the updated reference intervals. Potassium 3.9 3.4 - 5.3 mmol/L 06/05/2023 1:21 PM [facility] Chloride 102 98 - 107 mmol/L 06/05/2023 1:21 PM [facility] Carbon Dioxide (CO2) 24 22 - 29 mmol/L 06/05/2023 1:21 PM [facility] Anion Gap 13 7 - 15 mmol/L 06/05/2023 1:21 PM [facility] Urea Nitrogen 18.4 6.0 - 20.0 mg/dL 06/05/2023 1:21 PM [facility] Creatinine 0.97(H) 0.51 - 0.95 mg/dL 06/05/2023 1:21 PM [facility] GFR Estimate 68 >60 mL/min/1. 73m2 06/05/2023 1:21 PM [facility] Calcium 9.4 8.6 - 10.0 mg/dL 06/05/2023 1:21 PM [facility] Glucose 117(H) 70 - 99 mg/dL 06/05/2023 1:21 PM [facility] Blood STRUCTURE OF LEFT UPPER LIMB / Unknown Venipuncture / Unknown 06/05/2023 12:34 PM DATA RECOVERY PLANNER 06/05/2023 12:46 PM DATA RECOVERY PLANNER Ulises Orozco MD LAB - BLOOD ORDERABL ES LABORATORY [facility] Lab [address] [facility] Lab (1st floor, no room number) [place] [address], [facility] [phone] * EKG 12-lead, tracing only (06/05/2023 12:01 PM DATA RECOVERY PLANNER) Systolic Blood Pressure mmHg RADIOLOGY RESULTS Diastolic Blood Pressure mmHg RADIOLOGY RESULTS Ventricular Rate 69 BPM RAD IOLOGY RESULTS Atrial Rate 69 BPM RADIOLOG Y RESULTS MS Interval 158 ms RADIOLOG Y RESULTS QRS Duration 86 ms RADIOLO GY RESULTS QT 428 ms RADIOLOGY RESULTS QTc 458 ms RADIOLOGY RESULTS P [place] 82 degrees RADIOLOGY RESULTS R AXIS 77 degrees RADIOLOGY RESULTS T [place] 59 degrees RADIOLOGY RESULTS Interpretation ECG Sinus rhythm Normal ECG When compared with ECG of 26-APR-2019 10:02, No significant change was found Unconfirmed report - interpretation of this ECG is computer generated - see medical record for final interpretation Confirmed by - EMERGENCY ROOM, PHYSICIAN ([id number]), editor house organ [facility] ([id number]) on 06/05/2023 12:08:34 PM RADIOLOGY RESULTS 06/05/2023 12:0 1 PM DATA RECOVERY PLANNER 06/05/2023 12:08 PM DATA RECOVERY PLANNER Ulises Orozco MD ECG ORDERABLES RADIOLOGY RESULTS * (ABNORMAL) Factor 10 chromogenic (05/27/2023 1:46 PM DATA RECOVERY PLANNER) Factor 10 Chromogenic 44(L) 70 - 130 % 05/29/2023 8:32 AM DATA RECOVERY PLANNER [facility] Blood BLOOD SPECIMEN / Unknown Venipuncture / Unknown 05/27/2023 1:46 PM DATA RECOVERY PLANNER 05/27/2023 1:47 PM DATA RECOVERY PLANNER Narrative [facility] - 05/29/2023 8:32 AM DATA RECOVERY PLANNER Therapeutic Range: ??A Chromogenic Factor 10 level of approximately 20-40% inversely correlates with an INR of 2-3 for patients receiving Warfarin. Chromogenic Factor 10 levels below 20% indicate an INR greater than 3 and levels above 40% indicate an INR less than 2. Jose Moore MD LAB - BLOOD ORDERABL ES [facility] [address] [facility] [address], Room [address] [place] [address], [facility] [phone] * Head CT w/o contrast (04/11/2023 2:18 [...] further characterization. YASMINE LAWSON MD SYSTEM ID: ??[id number] Narrative 04/11/2023 3:[address] OF [...] further characterization. YASMINE LAWSON MD SYSTEM ID: [id number] Marco Charles MD IMG CT ORDERABLES * (ABNORMAL) INR (04/11/2023 1:52 PM CDT) INR 1.62(H) 0.85 - 1.15 04/11/2023 2:09 PM CDT LABORATORY Blood BLOOD SPECIMEN / Unknown Venipuncture / Unknown 04/11/2023 1:52 PM CDT 04/11/2023 1:59 PM CDT Marco Charles MD LAB - BLOOD ORDER PEDRITO [facility] Acute Care Lab [address] Lab (1st floor, no room number) [place] [address], [facility] [phone] from Last 3 Months Advance Directives For more information, please contact: [phone] Latest Code Status on File Code Status Date Activated Date Inactivated Comments Full Code 04/27/2019 11:40 AM 06/04/2021 1:04 PM Question Answer Comments Code status determined by: Discussion wi patient/legal decision maker Code Status History Code Status Date Activated Date Inactivated Comments Full Code 04/26/2019 1:53 PM 04/27/2019 11:40 AM Question Answer Comments Code status determined by: Discussion wi th patient/legal decision maker Full Code 07/10/2012 3:31 PM 07/13/2012 6:59 PM Full Code 05/09/2012 11:13 AM 07/10/2012 3:31 PM Full Code 05/06/2012 7:22 PM 05/09/2012 11:13 AM Care Teams Brake Coupler Dinkey Relationship Specialty Start Date End Date Shankar Peñaloza MD [address] [place] [address] [place] [address] PCP - General Internal Medicine 09/25/13 Navdeep Waldron MD [facility] [address] [place] [address] Physical Medicine & Rehabilitation - Pain Medicine 07/07/13 Shankar Peñaloza MD [address] [place] [address] [place] [address] Assigned PCP 07/22/16 Richardson Alberts PA-C [address] [place] [address] Physician Oil Pipeline Operator Gastroenterology 03/01/22 Shankar Peñaloza MD [address] [facility] [place] [address] Assigned Pain Medication Provider 06/17/22 Marielena Sunshine PA-C [address] [facility] [address] [place] [address] Physician Oil Pipeline Operator Urology 10/03/22 Radha Rivas Personal Advocate & Liaison (PAL) 11/26/22 Marielena Sunshine PA-C [address] [facility] [address] [place] [address] Assigned Surgical Provider 12/07/22 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 LICSW [address] [place] [address] Jewelry Technician Jewelry Technician - Clinical 06/23/23
--- OUTSIDE RECORDS SUMMARY | 2023-07-02 14:24 | XMS_ITS | Encounter Summary ---
Author Name Unknown Organization [place] Address [address] [place] [address] Care Team Providers Care Interior Decorator Paperhanging Name Role Phone Navdeep Waldron MD Unavailable [phone] Shankar Peñaloza MD Primary Care Provider [phone] Shankar Peñaloza MD Unavailable [phone] Richardson Alberts PA-C Unavailable [phone] Shankar Peñaloza MD Unavailable [phone] Marielena Sunshine PA-C Unavailable Radha Rivas Unavailable Unavailable Marielena Sunshine PA-C Unavailable 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SW Unavailable [phone] Encounter Details Date Type Department Care Team (Latest Contact Info) Description 06/25/2023 Travel Social History Tobacco Use Types Packs/Day Years [...] on file documented as of this encounter Plan of Treatment Upcoming Encounters Date Type Department Care Team (Late st Contact Info) Description 07/16/2023 3:30 PM LEAF STICKER [facility] [address] [place] [phone] Shankar Peñaloza MD [address] [facility] [place] [address] 2023 3:00 PM LEAF STICKER Virtual Visit [facility] [address] [place] [phone] 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, [address] [place] [address] 08/13/2023 2:30 PM LEAF STICKER Office Visit [facility] [address] [place] [address] [place] [address] [place] [address] documented as of this encounter Visit Diagnoses Not on filedocumented in this encounter Additional Health Concerns Assessment Noted Time PHQ-9 Depression Total Score: 22 024 9:33 AM LEAF STICKER documented as of this encounter Care Teams Interior Decorator Paperhanging Relationship Specialty Start Date End Date Sahnkar Peñaloza MD [address] [place] [address] [place] [address] PCP - General Internal Medicine 09/25/13 Navdeep [place]ron MD [facility] [address] [place] [address] Physical Medicine & Rehabilitation - Pain Medicine 07/07/13 Shankar Peñaloza MD [address] [place] [address] [place] [address] Assigned PCP 07/22/16 Richardson Alberts PA-C [address] [place] [address] Physician Full Stack Software Engineer Gastroenterology 03/01/22 Shankar Peñaloza MD [address] [place] [address] [place] [address] Assigned Pain Medication Provider 06/17/22 Marielena Sunshine PA-C [address] [facility] [address] [place] [address] Physician Full Stack Software Engineer Urology 10/03/22 Radha Rivas Personal Advocate & Liaison (PAL) 11/26/22 Marielena Sunshine PA-C [address] [facility] [address] [place] [address] Assigned Surgical Provider 12/07/22 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 LICSW [address] [place] [address] Oracle Specialist Oracle Specialist - Clinical 06/23/23 documented as of this encounter
--- OUTSIDE RECORDS SUMMARY | 2023-07-02 14:24 | XMS_ITS | Encounter Summary ---
Author Name Unknown Organization [facility] Address [address] [place] [address]. [place] [address] Care Team Providers Care Foundry Laborer Coreroom Name Role Phone Navdeep Waldron MD Unavailable [phone] Shankar Peñaloza MD Primary Care Provider Shankar Peñaloza MD Unavailable [phone] Richardson AlbertsC Unavailable [phone] Shankar Peñaloza MD Unavailable [phone] Marielena Sunshine PA-C Unavailable Radha Rivas Unavailable Unavailable Marielena Sunshine PA-C Unavailable 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 [facility] Unavailable Reason for Visit * Mental Health Outpatient (Routine: Next available opening) - Closed Specialty Diagnoses / Procedures Referred By Contac t Referred To Contact Behavioral Health Diagnoses Severe episode of recurrent major depressive disorder, without psychotic features (H) [place] [address] [place] [address] Referral ID Status Reason Start Date Expiration Date Visits Re quested Visits Authorized [id number] Closed 03/11/2023 03/10/2024 1 1 Encounter Details Date Type Department Care Team (Late st Contact Info) Description 06/23/2023 10:00 AM CREDIT ASSOCIATE Virtual Visit [facility] [place] [address] [place] [phone] [place] [address] [place] [address] 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, [facility] [address] [place], [place] [id number] Severe episode of recurrent major depressive disorder, without psychotic features (H) Social History Tobacco Use Types Packs/Day Years [...] on file documented as of this encounter Progress Notes * 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, FORM WORKER - 06/23/2023 10:00 AM CST Images from the original note were not included. [facility] Mental Health & Addiction Services Progress Note - Initial Visit Patient Name: Anabel Robb Date: 06/23/2023 Service Type: Individual Visit Start Time: 10:04 Visit End Time: 10:57 Visit #: 1 Attendees: Client attended alone Service Modality: Video Visit: Provider verified identity through the following two step process. Patient provided: Patient photo, Patient , and Patient address, middle name Mcdonnell Telemedicine Visit: The patient's condition can be safely assessed and treated via synchronous audio and visual telemedicine encounter. Reason for Telemedicine Visit: Services only offered telehealth Originating Site (Patient Location): Patient's home Distant Site (Provider Location): Provider Remote Setting- Home Office Consent: The patient/guardian has verbally consented to: the potential risks and benefits of telemedicine (video visit) versus in person care; bill my insurance or make self-payment for services provided; and responsibility for payment of non-covered services. Patient would like the video invitation sent by: My Chart Mode of Communication: Video Conference via [facility] Distant Location (Provider): Off-site As the provider I attest to compliance with applicable laws and regulations related to telemedicine. DATA: Interactive Complexity: Yes, visit entailed Interactive Complexity evidenced by: First encounter, AIDET was performed, DA was initiated and schedule was discussed. Crisis: No Presenting Concerns/ Current Stressors: Patient has been experiencing what she believes are the symptoms of menopause which has been bothering her for the last 9 years. Experiences medical issues that prevent her from taking medications tohelp with menopause. Was given Ativan at ER recently which somehow is helping. Blames herself and has negative self criticism for having sweats and other discomfort. She can't go anywhere with these issues. is her protective factor he has been there for her. Has 2 sons( 36 and 33).both havefamily and have good relationship with patient. Patient would like to learn how to cope with these issues. Has been walking with her neighbor. Has been will try breathing with the 5 fingers and also try Yoga to alleviate anxiety. Will also refrain from getting hard on self for her health issues.endorsed SI but shared she loves her family and will not harm self. Has not had any active thoughts. Will use 988 should she feel her SI are becoming overwhelming. Patient and marketing copywriter initiated her DA. She will complete her assessment at the next visit. ASSESSMENT: Mental Status Assessment: Appearance: Appropriate Eye Contact: Good Psychomotor Behavior: Normal Attitude: Cooperative Orientation: Person Place Time Situation Speech Rate / Production: Normal/ Responsive Volume: Normal Mood: Anxious Depressed Affect: Appropriate Thought Content: Clear Thought Form: Coherent Logical Insight: Good Assessments completed prior to this visit: The following assessments were completed by patient for this visit: PHQ2: 04/08/2022 10:45 AM 06/12/2021 11:19 AM 04/19/2021 12:08 PM 01/03/2021 3:06 PM 07/27/2019 2:52 PM 03/03/2017 2:34 PM 03/03/2017 2:33 PM PHQ-2 (??1999 [employer]) Q1: Little interest or pleasure in doing things 3 3 3 3 3 Q2: Feeling down, depressed or hopeless 3 3 3 3 3 PHQ-2 Score 6 6 6 6 6 PHQ-2 Total Score (12-17 Years)- Positive if 3 or more points; Administer PHQ-A if positive 6 Q1: Little interest or pleasure in doing things Nearly every day Nearly every day Nearly every day Nearly every day Q2: Feeling down, depressed or hopeless Nearly every day Nearly every day Nearly every day Nearly every day PHQ-2 Score 6 6 Incomplete Incomplete 6 6 PHQ9: 05/27/2022 9:57 AM 10/01/2022 9:02 AM 11/05/2022 1:55 PM 01/21/2023 3:44 PM 03/11/2023 10:05 AM 06/11/2023 4:47 PM 06/23/2023 9:33 AM PHQ-9 SCORE PHQ-9 Total Score Kai 17 (Moderately severe depression) 16 (Moderately severe depression) 16 (Moderately severe depression) 17 (Moderately severe depression) 19 (Moderately severe depression) 21 (Severe depression) 22 (Severe depression) PHQ-9 Total Score 17 16 16 17 19 21 22 GAD2: 06/23/2023 9:46 AM CHAD-2 Feeling nervous, anxious, or on edge 3 Not being able to stop or control worrying 3 CHAD-2 Total Score 6 GAD7: 08/16/2016 10:30 AM 03/24/2018 10:34 AM 05/27/2022 9:57 AM 01/21/2023 3:45 PM 04/09/2023 11:07 AM 06/11/2023 4:48 PM CHAD-7 SCORE Total Score 6 (mild anxiety) 2 (minimal anxiety) 6 (mild anxiety) 14 (moderate anxiety) Total Score 4 3 6 2 6 14 CAGE-AID: 06/23/2023 9:48 AM CAGE-AID Total Score Total Score 0 Total Score MyChart 0 (A total score of 2 or greater is considered clinically significant) PROMIS 10-Global Health (all questions and answers displayed): 06/23/2023 9:48 AM PROMIS 10 In general, would you say your health is: Fair In general, would you say your quality of life is: Fair In general, how would you rate your physical health? Fair In general, how would you rate your mental health, including your mood and your ability to think? Fair In general, how would you rate your satisfaction with your social activities and relationships? Fair In general, please rate how well you carry out your usual social activities and roles Good To what extent are you able to carry out your everyday physical activities such as walking, climbing stairs, carrying groceries, or moving a chair? Mostly In the past 7 days, how often have you been bothered by emotional problems such as feeling anxious,depressed, or irritable? Often In the past 7 days, how would you rate your fatigue on average? Moderate In the past 7 days, how would you rate your pain on average, where 0 means no pain, and 10 means worst imaginable pain? 5 In general, would you say your health is: 2 In general, would you say your quality of life is: 2 In general, how would you rate your physical health? 2 In general, how would you rate your mental health, including your mood and your ability to think? 2 In general, how would you rate your satisfaction with your social activities and relationships? 2 In general, please rate how well you carry out your usual social activities and roles. (This includes activities at home, at work and in your community, and responsibilities as a parent, child, spouse, employee, friend, etc.) 3 To what extent are you able to carry out your everyday physical activities such as walking, climbing stairs, carrying groceries, or moving a chair? 4 In the past 7 days, how often have you been bothered by emotional problems such as feeling anxious,depressed, or irritable? 4 In the past 7 days, how would you rate your fatigue on average? 3 In the past 7 days, how would you rate your pain on average, where 0 means no pain, and 10 means worst imaginable pain? 5 Global Mental Health Score 8 Global Physical Health Score 12 PROMIS TOTAL - SUBSCORES 20 [place] Suicide Severity Rating Scale (Short Version) 04/26/2019 9:44 AM 06/04/2021 1:14 PM 04/11/2023 10:53 AM 06/05/2023 11:27 AM [place] Suicide Severity Rating (Short Version) Over the past 2 weeks have you felt down, depressed, or hopeless? no yes no yes Over the past 2 weeks have you had thoughts of killing yourself? no no no no Have you ever attempted to kill yourself? no no no no Safety Issues and Plan for Safety and Risk Management: [place] Suicide Severity Rating Scale (Short Version) 04/26/2019 9:44 AM 06/04/2021 1:14 PM 04/11/2023 10:53 AM 06/05/2023 11:27 AM [place] Suicide Severity Rating (Short Version) Over the past 2 weeks have you felt down, depressed, or hopeless? no yes no yes Over the past 2 weeks have you had thoughts of killing yourself? no no no no Have you ever attempted to kill yourself? no no no no Patient denies current fears or concerns for personal safety. Patient reports the following current or recent suicidal ideation or behaviors: passive ideations, shared she is aware and can never go beyond. . Patient denies current or recent homicidal ideation or behaviors. Patient denies current or recent self injurious behavior or ideation. Patient denies other safety concerns. Recommended that patient call 911 or go to the local ED should there be a change in any of these risk factors. Also was offered 988 which she stated she would use should her SI get worse Patient reports there are no firearms in the house. Diagnostic Criteria: Generalized Anxiety Disorder A. Excessive anxiety and worry about a number of events or activities (such as work or school performance). B. The person finds it difficult to control the worry. C. Select 3 or more symptoms (required for diagnosis). Only one item is required in children. - Restlessness or feeling keyed up or on edge. - Being easily fatigued. - Difficulty concentrating or mind going blank. - Irritability. - Muscle tension. - Sleep disturbance (difficulty falling or staying asleep, or restless unsatisfying sleep). D. The focus of the anxiety and worry is not confined to features of an Channing I disorder. E. The anxiety, worry, or physical symptoms cause clinically significant distress or impairment in social, occupational, or other important areas of functioning. F. The disturbance is not due to the direct physiological effects of a substance (e.g., a drug of abuse, a medication) or a general medical condition (e.g., hyperthyroidism) and does not occur exclusively during a Mood Disorder, a Psychotic Disorder, or a Pervasive Developmental Disorder. Major Depressive Disorder CRITERIA (A-C) REPRESENT A MAJOR DEPRESSIVE EPISODE - SELECT THESE CRITERIA A) Recurrent episode(s) - symptoms have been present during the same 2-week period and represent a change from previous functioning 5 or more symptoms (required for diagnosis) - Depressed mood. Note: In children and adolescents, can be irritable mood. - Diminished interest or pleasure in all, or almost all, activities. - Significant weight change. - Change in sleep. - Psychomotor activity retardation. - Fatigue or loss of energy. - Feelings of worthlessness or inappropriate and excessive guilt. - Diminished ability to think or concentrate, or indecisiveness. B) The symptoms cause clinically significant distress or impairment in social, occupational, or other important areas of functioning C) The episode is not attributable to the physiological effects of a substance or to another medical condition D) The occurence of major depressive episode is not better explained by other thought / psychotic disorders E) There has never been a manic episode or hypomanic episode DSM5 Diagnoses: (Sustained by DSM5 Criteria Listed Above) Diagnoses: 296.33 (F33.2) Major Depressive Disorder, Recurrent Episode, Severe _ and With anxious distress 300.02 (F41.1) Generalized Anxiety Disorder Psychosocial & Contextual Factors:Anxiety, medical issues including harsh menopause Intervention: Assessment, rapport building Collateral Reports Completed: Not Applicable PLAN: (Homework, other): 1. Provider will continue Diagnostic Assessment. Patient was given the following to do until next session: Positive self talk, continue to walk with neighbor, try Yoga. 2. Provider recommended the following referrals: none discussed today. 3. Suicide Risk and Safety Concerns were assessed for Anabel Feliz Cezar. Patient meets the following risk assessment and triage: will use 988. Open to develop a safety planin the future МАРИЯ Molina June 23, 2023 Answers submitted by the patient for this visit: Patient Health Questionnaire (Submitted on 06/23/2023) If you checked off any problems, how difficult have these problems made it for you to do your work,take care of things at home, or get along with other people?: Extremely difficult PHQ9 TOTAL SCORE: 22 IT ASSOCIATE documented in this encounter Plan of Treatment Upcoming Encounters Date Type Department Care Team (Late st Contact Info) Description 07/16/2023 3:30 PM CREDIT ASSOCIATE Office Visit [place] [id number] [facility] [address] [place] [address] Shankar Peñaloza MD [address] [facility] [place] [address] 2023 3:00 PM CREDIT ASSOCIATE Virtual Visit [facility] [address] [place] [address] 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 LICSW [address] [place] [address] 08/13/2023 2:30 PM CREDIT ASSOCIATE Office Visit [facility] [id number] [place] [address] [place] [address] [facility] [place] [address] documented as of this encounter Visit Diagnoses Diagnosis Severe episode of recurrent major depressive disorder, without psychotic features (H) documented in this encounter Additional Health Concerns Assessment Noted Time PHQ-9 Depression Total Score: 22 024 9:33 AM CREDIT ASSOCIATE documented as of this encounter Care Teams Foundry Laborer Coreroom Relationship Specialty Start Date End Date Shankar Peñaloza MD [address] [place] [address] [place] [address] PCP - General Internal Medicine 09/25/13 Navdeep Waldron MD [facility] [address] [place] [address] Physical Medicine & Rehabilitation - Pain Medicine 07/07/13 Shankar Peñaloza MD [address] [place] [address] [place] [id number] Assigned PCP 07/22/16 Richardson Alberts PA-C [address] [place] [address] Physician Ice Grinder Gastroenterology 03/01/22 Shankar Peñaloza MD [address] [place] [address] [place] [address] Assigned Pain Medication Provider 06/17/22 Marielena Sunshine PA-C [address] [facility] [address] [place] [address] Physician Ice Grinder Urology 10/03/22 Radha Rivas Personal Advocate & Liaison (PAL) 11/26/22 Marielena Sunshine PA-C [address] [place] [address] [place] [id number] Assigned Surgical Provider 12/07/22 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 LICSW [address] [place] [address] Blending Line Attendant Blending Line Attendant - Clinical 06/23/23 documented as of this encounter
--- OUTSIDE RECORDS SUMMARY | 2023-07-02 14:24 | XMS_ITS | Encounter Summary ---
Author Name Unknown Organization [facility] Address [address] [place] [address] Care Team Providers Care Ground Operations Supervisor Name Role Phone Navdeep Waldron MD Unavailable [phone] Shankar Peñaloza MD Primary Care Provider Shankar Peñaloza MD Unavailable [phone] Richardson Alberts PA-C Unavailable [phone] Shankar Peñaloza MD Unavailable [phone] Marielena Sunshine PA-C Unavailable Radha Rivas Unavailable Unavailable Marielena Sunshine PA-C Unavailable Sinyijin Specsigrid COVERED BUCKLE ASSEMBLER Unavailable Encounter Details Date Type Department Care Team (Late st Contact Info) Description 06/23/2023 [facility] Addiction Clinic [place] [address] [place] [phone] Sinyigakris, Speciose, COVERED BUCKLE ASSEMBLER [address] [place], [place] [phone] Social History Tobacco Use Types Packs/Day Years [...] st Contact Info) Description 07/16/2023 3:30 PM SOFT TOP INSTALLER Office Visit [facility] [place] [address] [place] [phone] Shankar Peñaloza MD [address] [facility] [place] [id number] 2023 3:00 PM SOFT TOP INSTALLER Virtual Visit [facility] Addiction Clinic [place] [address] [place] [address] GerhardshariJob ponce, [facility] [address] [place] [address] 08/13/2023 2:30 PM SOFT TOP INSTALLER Office Visit [facility] [address] [place] [address] [place] [address] [place] [address] documented as of this encounter Visit Diagnoses Not on filedocumented in this encounter Additional Health Concerns Assessment Noted Time PHQ-9 Depression Total Score: 22 024 9:33 AM SOFT TOP INSTALLER documented as of this encounter Care Teams Ground Operations Supervisor Relationship Specialty Start Date End Date Shankar Peñaloza MD [address] [place] [address] [place] [address] PCP - General Internal Medicine 09/25/13 Navdeep Waldron MD [facility] [address] [place] [address] Physical Medicine & Rehabilitation - Pain Medicine 07/07/13 Shankar Peñaloza MD [address] [place] [address] [place] [address] Assigned PCP 07/22/16 Richardson Alberts PA-C [address] [facility] [place] [address] Physician Paper Cutting Machine Operator Gastroenterology 03/01/22 Shankar Peñaloza MD [address] [facility] [address] Assigned Pain Medication Provider 06/17/22 Marielena Sunshine PA-C [address] [facility] [address] [place], [place] [address] Physician Paper Cutting Machine Operator Urology 10/03/22 Radha Rivas Personal Advocate & Liaison (PAL) 11/26/22 Marielena Sunshine PA-C [address] [facility] [address] [place] [address] Assigned Surgical Provider 12/07/22 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 LICSW [address] [place] [address] Edger Automatic Edger Automatic - Clinical 06/23/23 documented as of this encounter
--- OUTSIDE RECORDS SUMMARY | 2023-07-02 14:25 | XMS_ITS | Encounter Summary ---
Author Name Unknown Organization [place] Address [address] [place] [address]. [place] [address] Care Team Providers Care Police Or Patrol Park Officer Name Role Phone Navdeep Waldron MD Unavailable [phone] Shankar Peñaloza MD Primary Care Provider [phone] Shankar Peñaloza MD Unavailable [phone] Richardson Alberts PA-C Unavailable [phone] Shankar Peñaloza MD Unavailable [phone] Marielena Sunshine PA-C Unavailable Radha Rivas Unavailable Unavailable Marielena Sunshine PA-C Unavailable Reason for Visit * Reason Comments Medication Refill Encounter Details Date Type Department Care Team (Late st Contact Info) Description [facility] [address] [place] [address] [place] [address] [place] [address] Medication Refill Social History Tobacco Use Types Packs/Day Years Used Date Smoking Tobacco: Former Cigarettes Q uit: 02/12/2021 Smokeless Tobacco: Never Alcohol Use Standard Drinks/Week Comments No 0 (1 standard drink = 0.6 oz pur e alcohol) PHQ-2 Answer Date Recorded PHQ-2 Score 6 06/11/2023 Adolescent Education Answer Date Record ed Getting [...] encounter Miscellaneous Notes * Telephone Encounter - Capri Loyola NP - 06/20/2023 10:59 AM CST Has upcoming visit 07/16/23 T TECHNICIAN documented in this encounter Plan of Treatment Upcoming Encounters Date Type Department Care Team (Late st Contact Info) Description 07/16/2023 3:30 PM EVENT TECHNICIAN Office Visit [facility] [place] [address] [place] [phone] Shankar Peñaloza MD [address] [facility] [place] [address] 2023 3:00 PM EVENT TECHNICIAN Virtual Visit [facility] Addiction [facility] [address] [place] [address] 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, [facility] [address] [place] [address] 08/13/2023 2:30 PM EVENT TECHNICIAN Office Visit [facility] [id number] [place] [address] [place]acey [place] [address] [place] [address] documented as of this encounter Visit Diagnoses Diagnosis Severe episode of recurrent major depressive disorder, without psychotic features (H) documented in this encounter Additional Health Concerns Assessment Noted Time PHQ-9 Depression Total Score: 21 024 4:47 PM EVENT TECHNICIAN documented as of this encounter Care Teams Police Or Patrol Park Officer Relationship Specialty Start Date End Date Shankar Peñaloza MD [address] [place] [address] [place] [address] PCP - General Internal Medicine 09/25/13 Navdeep Waldron MD [facility] [address] [place] [address] Physical Medicine & Rehabilitation - Pain Medicine 07/07/13 Shankar Peñaloza MD [address] [place] [address] [place] [address] Assigned PCP 2/13/17 Richardson Alberts PA-C [address] [place] [address] Physician Tile Conduit Layer Gastroenterology 03/01/22 Shankar Peñaloza MD [address] [facility] [place] [address] Assigned Pain Medication Provider 06/17/22 Marielena Sunshine PA-C [address] [facility] [address] [place], [place] [address] Physician Tile Conduit Layer Urology 10/03/22 Radha Rivas Personal Advocate & Liaison (PAL) 11/26/22 Marielena Sunshine PA-C [address] [facility] [address] [place], [place] [address] Assigned Surgical Provider 12/07/22 documented as of this encounter
--- OUTSIDE RECORDS SUMMARY | 2023-07-02 14:25 | XMS_ITS | Encounter Summary ---
Author Name Unknown Organization [place] [facility] Address [address] [place] [address] Care Team Providers Care Saxophone Assembler Name Role Phone Navdeep Waldron MD Unavailable [phone] Shankar Peñaloza MD Primary Care Provider Shankar Peñaloza MD Unavailable [phone] Richardson Alberts PA-C Unavailable [phone] Shankar Peñaloza MD Unavailable [phone] Marielena Sunshine PA-C Unavailable Radha Rivas Unavailable Unavailable Marielena Sunshine PA-C Unavailable Reason for Visit * Reason Onset Date Comments Refill Request 05/20/2023 Encounter Details Date Type Department Care Team (Late st Contact Info) Description 05/20/2023 Refjon M [facility] Keisha [address] [place] [address] Shankar Peñaloza MD [address] [place] [address] [place] [address] Refill Request Social History Tobacco Use Types Packs/Day Years Used Date Smoking Tobacco: Former Cigarettes Q uit: 02/12/2021 Smokeless Tobacco: Never Alcohol Use Standard Drinks/Week Comments No 0 (1 standard drink = 0.6 oz pur e alcohol) PHQ-2 Answer Date Recorded PHQ-2 Score 6 03/11/2023 Adolescent Education Answer Date Record ed Getting School Help Needed Not on file 03/10 Food Insecurity Answer Date Recorded Within the past 12 months, d id you worry that your food would run out before you got money to buy more? No 03/11/2023 Within the past 12 months, d id the food you bought just not last and you didn? t have money to get more? No 03/11/2023 Housing Stability Answer Date Recorded Do you have housing? Yes 03/11/2023 Are you worried about losing your housing? No 03/11/2023 Financial Resource Strain Answer Date R ecorded Within the past 12 months, h ave you or your family members you live with been unable to get utilities (heat, electricity) when it was really needed? No 03/11/2023 Transportation Needs Answer Date Record ed Within the past 12 months, h as lack of transportation kept you from medical appointments, getting your medicines, non-medical meetings or appointments, work, or from getting things that you need? No 03/11/2023 Interpersonal Safety Answer Date Record ed Do [...] st Contact Info) Description 07/16/2023 3:30 PM MIXING PLANT DUMPER Office Visit [facility] Keisha [address] [place] [phone] Shankar Peñaloza MD [address] [facility] [place] [address] 2023 3:00 PM MIXING PLANT DUMPER Virtual Visit [facility] [place] [address] [place] [address] 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, [facility] [address] [place] [address] 08/13/2023 2:30 PM MIXING PLANT DUMPER Office Visit [facility] [address] [place] [phone] [place] [address] [place] [address] documented as of this encounter Visit Diagnoses Diagnosis Primary insomnia Persistent disorder of initiating or maintaining sleep documented in this encounter Additional Health Concerns Assessment Noted Time PHQ-9 Depression Total Score: 19 023 10:41 AM CDT documented as of this encounter Care Teams Saxophone Assembler Relationship Specialty Start Date End Date Shankar Peñaloza MD [address] [place] [address] [place] [address] PCP - General Internal Medicine 09/25/13 Navdeep Waldron MD [facility] [address] [place] [address] [id number] Physical Medicine & Rehabilitation - Pain Medicine 07/07/13 Shankar Peñaloza MD [address] [place] [address] [place] [address] Assigned PCP 07/22/16 Richardson Alberts PA-C [address] [place] [address] Physician Hand Weaver Gastroenterology 03/01/22 Shankar Peñaloza MD [address] [place] [place] [address] Assigned Pain Medication Provider 06/17/22 Marielena Sunshine PA-C [address] [facility] [address] [place], [place] [address] Physician Hand Weaver Urology 10/03/22 Radha Rivas Personal Advocate & Liaison (PAL) 11/26/22 Marielena Sunshine PA-C [address] [facility] [address] [place], [place] [address] Assigned Surgical Provider 12/07/22 documented as of this encounter
--- OUTSIDE RECORDS SUMMARY | 2023-07-02 14:25 | XMS_ITS | Encounter Summary ---
Author Name Unknown Organization [facility] Address [address] [place] [address] Care Team Providers Care Grinding Wheel Inspector Name Role Phone Navdeep Waldron MD Unavailable [phone] Shankar Peñaloza MD Primary Care Provider Shankar Peñaloza MD Unavailable [phone] Richardson Alberts PA-C Unavailable [phone] Shankar Peñaloza MD Unavailable [phone] Marielena Sunshine PA-C Unavailable Radha Rivas Unavailable Unavailable Marielena Sunshine PA-C Unavailable [phone] Encounter Details Date Type Department Care Team (Late st Contact Info) Description 05/27/2023 1:45 PM POWER SHOVEL OPERATOR HELPER Lab M [facility] [address] [place] [address] Antiphospholipid syndrome (H24) (Primary Dx); Benign essential hypertension Social History Tobacco Use Types Packs/Day Years [...] st Contact Info) Description 07/16/2023 3:30 PM POWER SHOVEL OPERATOR HELPER Office Visit [facility] Keisha [address] [place] [address] Shankar Peñaloza MD [address] [facility] [place] [id number] 2023 3:00 PM POWER SHOVEL OPERATOR HELPER Virtual Visit [facility] [address] [place] [address] 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, MARKETING PROGRAMS MANAGER [address] [place] [address] 08/13/2023 2:30 PM POWER SHOVEL OPERATOR HELPER Office Visit [facility] [address] [place] [phone] [place] [address] [place] [address] documented as of this encounter Procedures Procedure Name Priority Date/Time Associated Diagnosis Comments FACTOR 10 CHROMOGENIC Routine 05/27/2023 1:46 PM POWER SHOVEL OPERATOR HELPER Antiphospholipid syndrome (H24) BASIC METABOLIC PANEL Routine 05/27/2023 1:32 PM POWER SHOVEL OPERATOR HELPER Benign essential hypertension documented in this encounter Results * (ABNORMAL) Factor 10 chromogenic (05/27/2023 1:46 PM POWER SHOVEL OPERATOR HELPER) Factor 10 Chromogenic 44(L) 70 - 130 % 05/29/2023 8:32 AM POWER SHOVEL OPERATOR HELPER [facility] Blood BLOOD SPECIMEN / Unknown Venipuncture / Unknown 05/27/2023 1:46 PM POWER SHOVEL OPERATOR HELPER 05/27/2023 1:47 PM POWER SHOVEL OPERATOR HELPER Narrative [facility] - 05/29/2023 8:32 AM POWER SHOVEL OPERATOR HELPER Therapeutic Range: ??A Chromogenic Factor 10 level of approximately 20-40% inversely correlates with an INR of 2-3 for patients receiving Warfarin. Chromogenic Factor 10 levels below 20% indicate an INR greater than 3 and levels above 40% indicate an INR less than 2. Jose Moore MD LAB - BLOOD ORDERABL ES [facility] [address] [facility] [address] Building, Room [address] [place] [address], [facility] [phone] * (ABNORMAL) Basic metabolic panel (Ca, Cl, CO2, Creat, Gluc, K, Na, BUN) (05/27/2023 1:32 PM POWER SHOVEL OPERATOR HELPER) Sodium 138 135 - 145 mmol/L 05/27/2023 9:12 PM POWER SHOVEL OPERATOR HELPER [facility] Comment:Reference intervals for this test were updated on 03/04/2023 to more accurately reflect our healthy population. There may be differences in the flagging of prior results with similar values performed with this method. Interpretation of those prior results can be made in the context of the updated reference intervals. Potassium 3.9 3.4 - 5.3 mmol/L 05/27/2023 9:12 PM POWER SHOVEL OPERATOR HELPER [facility] Chloride 102 98 - 107 mmol/L 05/27/2023 9:12 PM POWER SHOVEL OPERATOR HELPER [facility] Carbon Dioxide (CO2) 27 22 - 29 mmol/L 05/27/2023 9:12 PM POWER SHOVEL OPERATOR HELPER [facility] Anion Gap 9 7 - 15 mmol/L 05/27/2023 9:12 PM POWER SHOVEL OPERATOR HELPER [facility] Urea Nitrogen 23.9(H) 6.0 - 20.0 mg/dL 05/27/2023 9:12 PM POWER SHOVEL OPERATOR HELPER [facility] Creatinine 0.87 0.51 - 0.95 mg/dL 05/27/2023 9:12 PM POWER SHOVEL OPERATOR HELPER [facility] GFR Estimate 78 >60 mL/min/1. 73m2 05/27/2023 9:12 PM POWER SHOVEL OPERATOR HELPER [facility] Calcium 9.4 8.6 - 10.0 mg/dL 05/27/2023 9:12 PM POWER SHOVEL OPERATOR HELPER [facility] Glucose 101(H) 70 - 99 mg/dL 05/27/2023 9:12 PM POWER SHOVEL OPERATOR HELPER [facility] Blood BLOOD SPECIMEN / Unknown Venipuncture / Unknown 05/27/2023 1:32 PM POWER SHOVEL OPERATOR HELPER 05/27/2023 1:32 PM POWER SHOVEL OPERATOR HELPER Koko Tracey MD LAB - BLOOD ORDERABL ES [facility] [address] [facility], Room [address] [place] [address], [facility] [phone] documented in this encounter Visit Diagnoses Diagnosis Antiphospholipid syndrome (H24)- Primary Primary hypercoagulable state Benign essential hypertension Essential hypertension, benign documented in this encounter Additional Health Concerns Assessment Noted Time PHQ-9 Depression Total Score: 19 023 10:41 AM CDT documented as of this encounter Care Teams Grinding Wheel Inspector Relationship Specialty Start Date End Date Shankar Peñaloza MD [address] [place] [address] [place] [address] PCP - General Internal Medicine 09/25/13 Navdeep Waldron MD [facility] [address] [place] [address] Physical Medicine & Rehabilitation - Pain Medicine 07/07/13 Shankar Peñaloza MD [address] [place] [address] [place] [address] Assigned PCP 07/22/16 Richardson Alberts PA-C [address] [place] [address] Physician Superintendent Sanitation Gastroenterology 03/01/22 Shankar Peñaloza MD [address] [place] [address] [place] [address] Assigned Pain Medication Provider 06/17/22 Marielena Sunshine PA-C [address] [facility] [address] [address] [place] [address] Physician Superintendent Sanitation Urology 10/03/22 Radha Rivas Personal Advocate & Liaison (PAL) 11/26/22 Marielena Sunshine PA-C [address] [facility] [address] [place], [place] [address] Assigned Surgical Provider 12/07/22 documented as of this encounter
--- OUTSIDE RECORDS SUMMARY | 2023-07-02 14:25 | XMS_ITS | Encounter Summary ---
Author Name Unknown Organization [place] Address [address] [place] [address] Care Team Providers Care Contracts Analyst Name Role Phone Navdeep Waldron MD Unavailable [phone] Shankar Peñaloza MD Primary Care Provider Shankar Peñaloza MD Unavailable [phone] Richardson Alberts PA-C Unavailable [phone] Shankar Peñaloza MD Unavailable [phone] Marielena Sunshine PA-C Unavailable [phone] Radha Rivas Unavailable Unavailable Marielena Sunshine PA-C Unavailable Reason for Visit * Reason Onset Date Comments Outreach 06/03/2023 Encounter Details Date Type Department Care Team (Late st Contact Info) Description 06/03/2023 [facility] Medical Advice [address] [place] [address] Radha Rivas Outreach Social History Tobacco Use Types Packs/Day Years [...] encounter Miscellaneous Notes * Telephone Encounter - Radha Rivas - 06/03/2023 2:52 PM CST Phq9 sent to [facility] ETBALL COACH documented in this encounter Plan of Treatment Upcoming Encounters Date Type Department Care Team (Late st Contact Info) Description 07/16/2023 3:30 PM BASKETBALL COACH Office Visit [address] [place] [address] Shankar Peñ[place] [address] [place] [address] [place] [address] 2023 3:00 PM BASKETBALL COACH Virtual Visit [facility] [place] [address] [place] [address] 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, [facility] [address] [place], [place] [id number] 08/13/2023 2:30 PM BASKETBALL COACH Office Visit [facility] [address] [place] [address] [place] [address] [place] [address] documented as of this encounter Visit Diagnoses Not on filedocumented in this encounter Additional Health Concerns Assessment Noted Time PHQ-9 Depression Total Score: 19 023 10:41 AM CDT documented as of this encounter Care Teams Contracts Analyst Relationship Specialty Start Date End Date Shankar Peñaloza MD [address] [place] [address] [place] [address] PCP - General Internal Medicine 09/25/13 Navdeep Waldron MD [facility] [address] [place] [address] Physical Medicine & Rehabilitation - Pain Medicine 07/07/13 Shankar Peñaloza MD [address] [place] [address] [place] [address] Assigned PCP 07/22/16 Richardson Alberts PA-C [address] [place] [address] Physician Packaging Coordinator Gastroenterology 03/01/22 Shankar Peñaloza MD [address] [facility] [place] [address] Assigned Pain Medication Provider 06/17/22 Marielena Sunshine PA-C [address] [facility] 377 [place] [address] Physician Packaging Coordinator Urology 10/03/22 Radha Rivas Personal Advocate & Liaison (PAL) 11/26/22 Marielena Sunshine PA-C [address] [facility] 500 [place], [place] [address] Assigned Surgical Provider 12/07/22 documented as of this encounter
--- OUTSIDE RECORDS SUMMARY | 2023-07-02 14:25 | XMS_ITS | Encounter Summary ---
Author Name Unknown Organization [facility] Address [address] [place] [address] Care Team Providers Care Foreclosure Specialist Name Role Phone Navdeep Waldron MD Unavailable [phone] Shankar Peñaloza MD Primary Care Provider [phone] Shankar Peñaloza MD Unavailable [phone] Richardson Alberts PA-C Unavailable [phone] Shankar Peñaloza MD Unavailable [phone] Marielena Sunshine PA-C Unavailable Radha Rivas Unavailable Unavailable Marielena Sunshine PA-C Unavailable Encounter Details Date Type Department Care Team (Latest Contact Info) Description 05/27/2023 Travel Social History Tobacco Use Types Packs/Day [...] st Contact Info) Description 07/16/2023 3:30 PM BAG CUTTER [facility] [address] [place] [phone] Shankar Peñaloza MD [address] [place] [address] [place] [address] 2023 3:00 PM BAG CUTTER Virtual Visit [facility] [address] [place] [address] 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, [place] [address] [place] [address] 08/13/2023 2:30 PM BAG CUTTER Office Visit [facility] [address] [place] [address] [place] [address] [place] [address] documented as of this encounter Visit Diagnoses Not on filedocumented in this encounter Additional Health Concerns Assessment Noted Time PHQ-9 Depression Total Score: 19 023 10:41 AM CDT documented as of this encounter Care Teams Foreclosure Specialist Relationship Specialty Start Date End Date Shankar Peñaloza MD [address] [place] [address] [place] [address] PCP - General Internal Medicine 09/25/13 Navdeep Waldron MD [facility] [address] [place] [address] Physical Medicine & Rehabilitation - Pain Medicine 07/07/13 Shankar Peñaloza MD [address] [place] [address] [place] [address] Assigned PCP 07/22/16 Richardson Alberts PA-C [address] [place] [address] Physician Boiler Mechanic Gastroenterology 03/01/22 Shankar Peñaloza MD [address] [place] [address] [place] [address] Assigned Pain Medication Provider 06/17/22 Marielena Sunshine PA-C [address] [facility] [address] [place] [address] Physician Boiler Mechanic Urology 10/03/22 Radha Rivas Personal Advocate & Liaison (PAL) 11/26/22 Marielena Sunshine PA-C [address] [place] [address] Assigned Surgical Provider 12/07/22 documented as of this encounter
--- OUTSIDE RECORDS SUMMARY | 2023-07-02 14:25 | XMS_ITS | Encounter Summary ---
Author Name Unknown Organization [facility] Address [address] [place] [address] Care Team Providers Care Drying Room Operator Name Role Phone Navdeep Waldron MD Unavailable [phone] Shankar Peñaloza MD Primary Care Provider [phone] Shankar Peñaloza MD Unavailable [phone] Richardson Alberts PA-C Unavailable [phone] Shankar Peñaloza MD Unavailable [phone] Marielena Sunshine PA-C Unavailable Radha Rivas Unavailable Unavailable Marielena Sunshine PA-C Unavailable 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SW Unavailable Encounter Details Date Type Department Care Team (Late st Contact Info) Description 06/11/2023 [facility] [address] [address] Suzi Yao MA Social History Tobacco Use Types Packs/Day Years [...] st Contact Info) Description 07/16/2023 3:30 PM RESIDENTIAL YOUTH COUNSELOR Office Visit [facility] Keisha [address] [facility] [address] [place] [address] Shankar Peñaloza MD [address] [facility] [place] [id number] 2023 3:00 PM RESIDENTIAL YOUTH COUNSELOR Virtual Visit [facility] [address] [place] [address] 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, [facility] [address] [place] [address] 08/13/2023 2:30 PM RESIDENTIAL YOUTH COUNSELOR Office Visit [facility] [address] [place] [address] [place] [address] [place] [address] documented as of this encounter Visit Diagnoses Not on filedocumented in this encounter Additional Health Concerns Assessment Noted Time PHQ-9 Depression Total Score: 21 024 4:47 PM RESIDENTIAL YOUTH COUNSELOR documented as of this encounter Care Teams Drying Room Operator Relationship Specialty Start Date End Date Shankar Peñaloza MD [address] [place] [address] [place] [address] PCP - General Internal Medicine 09/25/13 Navdeep Waldron MD [facility] [address] [place] [address] Physical Medicine & Rehabilitation - Pain Medicine 07/07/13 Shankar Peñaloza MD [address] [place] [address] [place] [address] Assigned PCP 07/22/16 Richardson Alberts PA-C [address] [facility] [place] [address] Physician Geological Scout Gastroenterology 03/01/22 Shankar Peñaloza MD [address] [place] [address] [place] [address] Assigned Pain Medication Provider 06/17/22 Marielena Sunshine PA-C [address] [facility] [address] [place], [place] [address] Physician Geological Scout Urology 10/03/22 Radha Rivas Personal Advocate & Liaison (PAL) 11/26/22 Marielena Sunshine PA-C [address] [facility] 500 [place], [place] [address] Assigned Surgical Provider 12/07/22 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 LICSW [address] [place] [address] Plastics Seasoner Operator Plastics Seasoner Operator - Clinical 06/23/23 documented as of this encounter
--- OUTSIDE RECORDS SUMMARY | 2023-07-02 14:25 | XMS_ITS | Encounter Summary ---
Author Name Unknown Organization [facility] Address [address] [place] [address] Care Team Providers Care Photography Professor Name Role Phone Navdeep Waldron MD Unavailable [phone] Shankar Peñaloza MD Primary Care Provider Shankar Peñaloza MD Unavailable [phone] Richardson Alberts PA-C Unavailable [phone] Shankar Peñaloza MD Unavailable [phone] Marielena Sunshine PA-C Unavailable Radha Rivas Unavailable Unavailable Marielena Sunshine PA-C Unavailable Reason for Referral * Consultation (Routine: Next available opening) - Pending Review Specialty Diagnoses / Procedures Referred By Arlet felton Referred To Contact Gastroenterology Diagnoses Globus sensation Nausea History of Jama's esophagus Ulises Orozco MD [facility] [address] [facility] [address] [place] [id number] Referral ID Status Reason Start Date Expiration Date V isits Requested Visits Authorized [id number] Pending Review 06/05/2023 06/04/2024 1 1 Question Answer Reason for Referral: Esophageal Disorders Scheduling Instructions: [facility] will call you to coordinate your care as prescribed by the provider. If you don? t hear from a outside dealer sales representative within 2 business days, please call . Comments Please be aware that coverage of these services is subject to the terms and limitations of your health insurance plan. Call member services at your health plan with any benefit or coverage questions. [facility] will call you to coordinate your care as prescribed by the provider. If you don? t hear from a outside dealer sales representative within 2 business days, please call . CISE MANAGER Reason for Visit * Reason Comments Oral Swelling Palpitations Encounter Details Date Type Department Care Team (Late st Contact Info) Description 06/05/2023 4:33 PM EXERCISE MANAGER - 06/05/2023 6:04 PM EXERCISE MANAGER Emergency [facility] Emergency Dept [address] [place] [address] Ulises Orozco MD [facility] [address] [place] [address] Globus sensation; Nausea; History of Jama's esophagus; Anxiety Discharge Disposition: Home or Self Care Social History Tobacco Use Types Packs/Day Years [...] Sign Reading Time Taken Comments Blood Pressure 112/78 06/05/2023 6:04 PM EXERCISE MANAGER Pulse 70 06/05/2023 6:04 PM EXERCISE MANAGER Temperature 36.7 ??C (98 ??F) 06/05/2023 6:04 PM EXERCISE MANAGER Respiratory Rate 20 06/05/2023 6:04 PM EXERCISE MANAGER Oxygen Saturation 98% 06/05/2023 6:04 PM EXERCISE MANAGER Inhaled Oxygen Concentration - - Weight - - Height - - Body Mass Index - - documented in this encounter Discharge Instructions * Attachments The following attachments cannot be sent through Care Everywhere. * Nausea and Vomiting (Austrian) documented in this encounter Medications at Time of Discharge Medication Sig Dispensed Refills Start Date End Date clotrimazole-betametha sone (LOTRISONE) 1-0.05 % external creamIndications:Anal fissure Apply topically 2 times daily as needed (fissure) 30 g 1 04/16/2023 Fexofenadine HCl (PATIENCE PO) Take 180 mg by mouth daily as needed 0 hydrocortisone (WESTCORT) 0.2 % external creamIndications:Kamiah titis Apply sparingly to affected area three times daily as needed. 60 g 1 11/14/2020 ipratropium (ATROVENT) 0.06 % nasal sprayIndications:Acute recurrent pansinusitis Avoca 2 sprays into both nostrils 4 times daily 15 mL 0 05/12/2023 ondansetron (ZOFRAN ODT) 4 MG ODT tabIndications:Nausea and vomiting in adult,Epigastric pain Take 1 tablet (4 mg) by mouth every 8 hours as needed for nausea 30 tablet 0 05/18/2022 senna (SENOKOT) 8.6 MG tablet Take 1 tablet by mouth every evening 0 triamcinolone (KENALOG) 0.1 % external creamIndications:Kamiah titis Apply topically 2 times daily 30 g 0 10/01/2022 warfarin ANTICOAGULANT (COUMADIN) 10 MG tablet Take by mouth See Admin Instructions Monitors Chromogenic Factor X via [facility] Alternates between 10 mg and 7.5 mg 0 zolpidem (AMBIEN) 5 MG tabletIndications:Prim dave insomnia Take 1 tablet (5 mg) by mouth every evening as needed for sleep 30 tablet 5 05/21/2023 amoxicillin (AMOXIL) 875 MG tabletIndications:Bact erial sinusitis Take 1 tablet (875 mg) by mouth 2 times daily 14 tablet 0 04/09/2023 06/25/2023 fentaNYL (DURAGESIC) 25 mcg/hr 72 hr patchIndications:Fibro myalgia Place 1 patch onto the skin every 72 hours remove old patch. 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, without psychotic features (H) Take 1 capsule (10 mg) by mouth daily 30 capsule 0 05/23/2023 06/20/2023 hydrochlorothiazide (HYDRODIURIL) 12.5 MG tabletIndications:Ned gn essential hypertension TAKE 1 TABLET(12.5 MG) BY MOUTH DAILY 30 tablet 0 05/12/2023 06/10/2023 HYDROmorphone (DILAUDID) 2 MG tabletIndications:Fibr omyalgia Take 1 tablet (2 mg) by mouth every 6 hours as needed for severe pain 80 tablet 0 05/16/2023 06/17/2023 LORazepam (ATIVAN) 1 MG tablet Take 1 tablet (1 mg) by mouth every 8 hours as needed for anxiety, vomiting or nausea 12 tablet 0 06/05/2023 06/25/2023 naloxone (NARCAN) 4 MG/0.1ML nasal sprayIndications:Fibro myalgia Avoca 1 spray (4 mg) into one nostril alternating nostrils as needed for opioid reversal every 2-3 minutes until assistance arrives 0.2 mL 1 10/07/2019 06/25/2023 pantoprazole (PROTONIX) 40 MG EC tabletIndications:Fernandez ett's esophagus without dysplasia TAKE 1 TABLET(40 MG) BY MOUTH DAILY 90 tablet 0 03/21/2023 06/25/2023 prochlorperazine (COMPAZINE) 10 MG tablet Take 1 tablet (10 mg) by mouth every 6 hours as needed for nausea or vomiting 20 tablet 0 04/11/2023 06/25/2023 prochlorperazine (COMPAZINE) 10 MG tabletIndications:Infe ction due to 2019 novel coronavirus,Nausea and vomiting in adult,Epigastric pain Take 1 tablet (10 mg) by mouth every 6 hours as needed for nausea or vomiting 20 tablet 0 05/18/2022 06/25/2023 documented as of this encounter ED Notes * Mariangel Newby RN - 06/05/2023 11:27 AM CST Tearful and hyperventilating in triage, c/o bilateral hand and face numbness. H/o barretts esophagus. C/o throat swelling and intermittent palpitations. ABCs intact. A/Ox4. 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 Patient states that she has had nausea in thepast, though her most recent episode started on 05/23. Her reports that she has been nauseous almost every other day since this time. She has been using Compazine and Zofran periodically for the nausea with no significant relief. No recent vomiting. She notes that she also feels a sensationthat her throat is closing shut, though she is still able to swallow and drink water without difficulty. She believes she may be experiencing a globus sensation. She has tried Pepcid and Protonix forthis problem without relief. She also has a severe headache. She endorses hot and cold flashes as well, though denies fevers, cough, and sore throat. Genevieve adds that she thinks her anxiety is making her symptom worse. She says she was so anxious today that she was pacing the room. She also had some chest pressure, which she attributed to anxiety. Of note, patient follows with GI for her chronic medical problems. She contacted the nurse triage line about her symptoms today and was recommended to be seen in the ED. Independent Historian: Spouse/Partner - They report additional history as noted above. Review of External Notes: I reviewed the nurse triage line visit from this morning (06/05) where the patient was seen for symptoms feeling like her throat was closing. I learned she has a history of Jama's esophagus and started Omeprazole but switched to Protonix due to Omeprazole side effects. I also reviewed the upper GI procedure note from Dr. Cruz on 06/05/2021. Medications: Duragesic Patience Prozac Hydrodiuril Dilaudid Atrovent Narcan Zofran Protonix Compazine Senokot Coumadin Ambien Past Medical History: Anti-phospholipid antibody syndrome Chronic headache Chronic pain syndrome DVT Fibromyalgia Gout Thrombophlebitis Mumps PE RA Serotonin syndrome Colitis DDD, cervical Anxiety Jama's esophagus Vertigo HTN Depression Insomnia Past Surgical History: Cholecystectomy EGD Hysterectomy Vascular surgery Breast lumpectomy, right Physical Exam Patient Vitals for the past 24 hrs: BP Temp Temp src Pulse Resp SpO2 06/05/23 1804 112/78 98 ??F (36.7 ??C) Oral 70 20 98 % 06/05/23 1637 113/72 -- -- 72 -- 97 % 06/05/23 1128 (!) 152/93 97.6 ??F (36.4 ??C) Temporal 80 18 99 % Physical Exam General: Alert, appears well-developed and well-nourished. Cooperative. In mild distress, anxious HEENT: Head: Atraumatic Ears: External ears are normal Mouth/Throat: Oropharynx is without erythema or exudate and mucous membranes are moist. No angioedema Eyes: Conjunctivae normal and EOM are normal. No scleral icterus. CV: Normal rate, regular rhythm, normal heart sounds and radial pulses are 2+ and symmetric. No murmur. Resp: Breath sounds are clear bilaterally Non-labored, no retractions or accessory muscle use GI: Abdomen is soft, no distension, no tenderness. No rebound or guarding. No CVA tenderness bilaterally MS: Normal range of motion. No edema. Normal strength in all 4 extremities. Back atraumatic. No midline cervical, thoracic, or lumbar tenderness Skin: Warm and dry. No rash or lesions noted. Neuro: Alert. Normal strength. GCS: 15 Psych: Normal mood and affect. Emergency Department Course ECG ECG taken at 1201, ECG read at 1739 Normal sinus rhythm Normal ECG No significant change as compared to prior, dated 01/21/23. Rate 69 bpm. MD interval 158 ms. QRS duration 86 ms. QT/QTc 428/458 ms. P-R-T axes 82 77 59. Laboratory: Labs Ordered and Resulted from Time of ED Arrival to Time of ED Departure BASIC METABOLIC PANEL - Abnormal Result Value Sodium 139 Potassium 3.9 Chloride 102 Carbon Dioxide (CO2) 24 Anion Gap 13 Urea Nitrogen 18.4 Creatinine 0.97 (*) GFR Estimate 68 Calcium 9.4 Glucose 117 (*) TROPONIN T, HIGH SENSITIVITY - Normal Troponin T, High Sensitivity 9 CBC WITH PLATELETS AND DIFFERENTIAL WBC Count 7.9 RBC Count 4.56 Hemoglobin 13.2 Hematocrit 40.2 MCV 88 MCH 28.9 MCHC 32.8 RDW 12.5 Platelet Count 217 % Neutrophils 86 % Lymphocytes 10 % Monocytes 3 % Eosinophils 1 % Basophils 0 % Immature Granulocytes 0 NRBCs per 100 WBC 0 Absolute Neutrophils 6.8 Absolute Lymphocytes 0.8 Absolute Monocytes 0.3 Absolute Eosinophils 0.1 Absolute Basophils 0.0 Absolute Immature Granulocytes 0.0 Absolute NRBCs 0.0 Emergency Department Course & Assessments: Interventions: Medications LORazepam (ATIVAN) tablet 1 mg (1 mg Oral $Given 06/05/23 1800) Assessments: 1742 I obtained history and examined the patient as noted above. 1914 I rechecked the patient and explained findings. Social Determinants of Health affecting care: Healthcare Access/Compliance Disposition: The patient was discharged to home. Impression & Plan [facility] Diagnoses: None Medical Decision Making: Patient is a 57-year-old female with a history of Jama's esophagus and chronic nausea who presents with worsening nausea even in the setting of Zofran and Compazine use. Patient notes that she hada endoscopy in 2020 which was the initial diagnosis for her Jama's. She has been on Protonix ever since due to side effects with omeprazole. Today she feels a globus sensation when she tries to swallow but she is able to handle her secretions as well as water. Given that she is able to tolerate oral intake I think is important she follow-up closely with GI in the outpatient setting. She is nothaving any active chest discomfort symptoms and thankfully laboratory workup grossly unremarkable. She denied any chest pain to me on my evaluation and very low suspicion for ACS. I think much of hersymptoms are secondary to ongoing anxiety in addition to challenges with esophageal disorders with her Jama's. I think it is reasonable to trial a course of Ativan to see if this helps both her nausea but also her anxiety symptoms. It is important she follow-up closely with her primary care provider and a new referral has been placed to gastroenterology for consideration of repeat endoscopy orconsideration of alternative medications to assist with her chronic nausea and globus sensation symptoms. There is no evidence of angioedema or anaphylaxis. I see no oral swelling on my evaluation. Physical exam is reassuring. Patient agreeable to trial of oral Ativan in the short-term. She was offered IV fluids as well as IV medications but would prefer to try oral medications at this time with close outpatient follow-up. Return precautions understood after all questions answered, discharged home. Diagnosis: ICD-10-CM 1. Globus sensation R09.A2 Adult GI Lighting Equipment Operator Referral - Consult Only 2. Nausea R11.0 Adult GI Lighting Equipment Operator Referral - Consult Only 3. History of Jama's esophagus Z87.19 Adult GI Lighting Equipment Operator Referral - Consult Only 4. Anxiety F41.9 Discharge Medications: Discharge Medication List as of 06/05/2023 5:59 PM START taking these medications Details LORazepam (ATIVAN) 1 MG tablet Take 1 tablet (1 mg) by mouth every 8 hours as needed for anxiety, vomiting or nausea, Disp-12 tablet, R-0, E-Prescribe Scribe Disclosure: I, Aranza Jurado, am serving as a scribe at 5:44 PM on 06/05/2023 to document services personallyperformed by Ulises Orozco MD based on my observations and the provider's statements to me. 06/05/2023 Ulises Orozco MD White, Scott, MD 06/06/23 0011 CISE MANAGER documented in this encounter Plan of Treatment Upcoming Encounters Date Type Department Care Team (Late st Contact Info) Description 07/16/2023 3:30 PM EXERCISE MANAGER [facility] [place] [address] Shankar Peñ[place] [address] [place] [address] [place] [address] 2023 3:00 PM EXERCISE MANAGER Virtual Visit [facility] [address] [place] [address] 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, [facility] [address] [place] [address] 08/13/2023 2:30 PM EXERCISE MANAGER Office Visit [facility] [address] [place] [phone] [place] [address] [place], [place] [phone] Scheduled Referrals Name Type Priority Associated Diagnoses Orde r Schedule Adult GI Lighting Equipment Operator Referral - Consult Only Referral Routine: Next available opening Globus sensation Nausea History of Jama's esophagus Expected: 06/05/2023 (Approximate), Expires: 06/05/2024 documented as of this encounter Procedures Procedure Name Priority Date/Time Associated Diagnosis Comments EXTRA TUBE STAT 06/05/2023 12:34 PM EXERCISE MANAGER EXTRA RED TOP TUBE STAT 06/05/2023 12 :34 PM EXERCISE MANAGER EXTRA BLUE TOP TUBE STAT 06/05/2023 1 2:34 PM EXERCISE MANAGER CBC WITH PLATELETS AND DIFFERENTIAL STAT 06/05/2023 12:34 PM EXERCISE MANAGER TROPONIN T, HIGH SENSITIVITY STAT 06/05/2023 12:34 PM EXERCISE MANAGER CBC WITH PLATELETS & DIFFERENTIAL STAT 06/05/2023 12:34 PM EXERCISE MANAGER BASIC METABOLIC PANEL STAT 06/05/2023 12:34 PM EXERCISE MANAGER EKG 12-LEAD, TRACING ONLY STAT 06/05/2023 12:01 PM EXERCISE MANAGER documented in this encounter Results * Extra Red Top Tube (06/05/2023 12:34 PM EXERCISE MANAGER) Hold Specimen [facility] 06/05/2023 1:47 PM EXERCISE MANAGER [facility] Blood STRUCTURE OF LEFT UPPER LIMB / Unknown Venipuncture / Unknown 06/05/2023 12:34 PM EXERCISE MANAGER 06/05/2023 12:46 PM EXERCISE MANAGER Ulises Orozco MD LAB - BLOOD ORDERABL ES [facility] Acute Care Lab [address] Lab (1st floor, no room number) [place] [address], [facility] [phone] * Extra Blue Top Tube (06/05/2023 12:34 PM EXERCISE MANAGER) Hold Specimen [facility] 06/05/2023 1:47 PM EXERCISE MANAGER [facility] Blood STRUCTURE OF LEFT UPPER LIMB / Unknown Venipuncture / Unknown 06/05/2023 12:34 PM EXERCISE MANAGER 06/05/2023 12:46 PM EXERCISE MANAGER Ulises Orozco MD LAB - BLOOD ORDERABL ES [facility] Acute Care Lab [address] Lab (1st floor, no room number) [place] [address], [facility] [phone] * CBC with platelets and differential (06/05/2023 12:34 PM EXERCISE MANAGER) [facility] WBC Count 7.9 4.0 - 11.0 10e3/uL 06/05/2023 12:50 PM EXERCISE MANAGER [facility] RBC Count 4.56 3.80 - 5.20 10e6/uL 06/05/2023 12:50 PM EXERCISE MANAGER [facility] Hemoglobin 13.2 11.7 - 15.7 g/dL 06/05/2023 12:50 PM EXERCISE MANAGER [facility] Hematocrit 40.2 35.0 - 47.0 % 06/05/2023 12:50 PM EXERCISE MANAGER [facility] MCV 88 78 - 100 fL 06/05/2023 12:50 PM EXERCISE MANAGER [facility] MCH 28.9 26.5 - 33.0 pg 06/05/2023 12:50 PM EXERCISE MANAGER [facility] MCHC 32.8 31.5 - 36.5 g/dL 06/05/2023 12:50 PM EXERCISE MANAGER [facility] RDW 12.5 10.0 - 15.0 % 06/05/2023 12:50 PM EXERCISE MANAGER [facility] Platelet Count 217 150 - 450 10e3/uL 06/05/2023 12:50 PM EXERCISE MANAGER [facility] % Neutrophils 86 % 06/05/2023 12:50 PM EXERCISE MANAGER [facility] % Lymphocytes 10 % 06/05/2023 12:50 PM EXERCISE MANAGER [facility] % Monocytes 3 % 06/05/2023 12:50 PM EXERCISE MANAGER [facility] % Eosinophils 1 % 06/05/2023 12:50 PM EXERCISE MANAGER [facility] % Basophils 0 % 06/05/2023 12:50 PM EXERCISE MANAGER [facility] % Immature Granulocytes 0 % 06/05/2023 12:50 PM EXERCISE MANAGER [facility] NRBCs per 100 WBC 0 <1 /100 023 12:50 PM EXERCISE MANAGER [facility] Absolute Neutrophils 6.8 1.6 - 8.3 10e3/uL 06/05/2023 12:50 PM EXERCISE MANAGER [facility] Absolute Lymphocytes 0.8 0.8 - 5.3 10e3/uL 06/05/2023 12:50 PM EXERCISE MANAGER [facility] Absolute Monocytes 0.3 0.0 - 1.3 10e3/uL 06/05/2023 12:50 PM EXERCISE MANAGER [facility] Absolute Eosinophils 0.1 0.0 - 0.7 10e3/uL 06/05/2023 12:50 PM EXERCISE MANAGER [facility] Absolute Basophils 0.0 0.0 - 0.2 10e3/uL 06/05/2023 12:50 PM EXERCISE MANAGER [facility] Absolute Immature Granulocytes 0.0 <=0.4 10e3/uL 06/05/2023 12:50 PM EXERCISE MANAGER [facility] Absolute NRBCs 0.0 10e3/uL 06/05/2023 12:50 PM EXERCISE MANAGER [facility] Blood STRUCTURE OF LEFT UPPER LIMB / Unknown Venipuncture / Unknown 06/05/2023 12:34 PM EXERCISE MANAGER 06/05/2023 12:46 PM EXERCISE MANAGER Ulises Orozco MD LAB - BLOOD ORDERABL ES LABORATORY [facility] Acute Care Lab [address] [facility] Lab (1st floor, no room number) [place] [address], [facility] [phone] * Troponin T, High Sensitivity (now) (06/05/2023 12:34 PM EXERCISE MANAGER) Troponin T, High Sensitivity 9 <=14 ng/L 06/05/2023 1:21 PM EXERCISE MANAGER [facility] Comment: Either a High Sensitivity [...] Unknown Venipuncture / Unknown 06/05/2023 12:34 PM EXERCISE MANAGER 06/05/2023 12:46 PM EXERCISE MANAGER Ulises Orozco MD LAB - BLOOD ORDERABL ES LABORATORY [facility] Acute Care Lab [address] Lab (1st floor, no room number) [place] [address], [facility] [phone] * (ABNORMAL) Basic metabolic panel (BMP) (06/05/2023 12:34 PM EXERCISE MANAGER) Sodium 139 135 - 145 mmol/L 06/05/2023 1:21 PM EXERCISE MANAGER LABORATORY Comment:Reference intervals for this test were updated on 03/04/2023 to more accurately reflect our healthy population. There may be differences in the flagging of prior results with similar values performed with this method. Interpretation of those prior results can be made in the context of the updated reference intervals. Potassium 3.9 3.4 - 5.3 mmol/L 06/05/2023 1:21 PM [facility] Chloride 102 98 - 107 mmol/L 06/05/2023 1:21 PM [facility] Carbon Dioxide (CO2) 24 22 - 29 mmol/L 06/05/2023 1:21 PM [facility] Anion Gap 13 7 - 15 mmol/L 06/05/2023 1:21 PM [facility] Urea Nitrogen 18.4 6.0 - 20.0 mg/dL 06/05/2023 1:21 PM [facility] Creatinine 0.97(H) 0.51 - 0.95 mg/dL 06/05/2023 1:21 PM [facility] GFR Estimate 68 >60 mL/min/1. 73m2 06/05/2023 1:21 PM [facility] Calcium 9.4 8.6 - 10.0 mg/dL 06/05/2023 1:21 PM [facility] Glucose 117(H) 70 - 99 mg/dL 06/05/2023 1:21 PM [facility] Blood STRUCTURE OF LEFT UPPER LIMB / Unknown Venipuncture / Unknown 06/05/2023 12:34 PM EXERCISE MANAGER 06/05/2023 12:46 PM EXERCISE MANAGER Ulises Orozco MD LAB - BLOOD ORDERABL ES LABORATORY [facility] Acute Care Lab [address] Lab (1st floor, no room number) [place] [address] [phone] * EKG 12-lead, tracing only (06/05/2023 12:01 PM EXERCISE MANAGER) Systolic Blood Pressure mmHg RADIOLOGY RESULTS Diastolic Blood Pressure mmHg RADIOLOGY RESULTS Ventricular Rate 69 BPM RAD IOLOGY RESULTS Atrial Rate 69 BPM RADIOLOG Y RESULTS MD Interval 158 ms RADIOLOG Y RESULTS QRS Duration 86 ms RADIOLO GY RESULTS QT 428 ms RADIOLOGY RESULTS QTc 458 ms RADIOLOGY RESULTS P Adams 82 degrees RADIOLOGY RESULTS R AXIS 77 degrees RADIOLOGY RESULTS T Adams 59 degrees RADIOLOGY RESULTS Interpretation ECG Sinus rhythm Normal ECG When compared with ECG of 26-APR-2019 10:02, No significant change was found Unconfirmed report - interpretation of this ECG is computer generated - see medical record for final interpretation Confirmed by - EMERGENCY ROOM, PHYSICIAN ([id number]), editor map [facility] ([id number]) on 06/05/2023 12:08:34 PM RADIOLOGY RESULTS 06/05/2023 12:0 1 PM EXERCISE MANAGER 06/05/2023 12:08 PM EXERCISE MANAGER Ulises Orozco MD ECG ORDERABLES RADIOLOGY RESULTS documented in this encounter Visit Diagnoses Diagnosis Globus sensation Gastrointestinal malfunction arising from mental factors Nausea Nausea alone History of Jama's esophagus Anxiety Anxiety state, unspecified documented in this encounter Administered Medications Inactive Administered Medications - up to 3 most recent administrations Medication Order MAR Action Action Date Dose Rate Site LORazepam (ATIVAN) tablet 1 mg 1 mg, Oral, ONCE, On Alexus 06/05/23 at 1755, For 1 dose $Given 06/05/2023 6:00 PM EXERCISE MANAGER 1 mg documented in this encounter Active and Recently Administered Medications Times are shown in EXERCISE MANAGER. Scheduled Medication Order 06/03/2023 06/04/2023 06/05/2023 LORazepam (ATIVAN) tablet 1 mg (COMPLETED) 1 mg, Oral, ONCE, On Alexus 06/05/23 at 1755, For 1 dose 1800 ($Given - Provi lynn: Faustino Santamaria RN) documented in this encounter Additional Health Concerns Assessment Noted Time PHQ-9 Depression Total Score: 19 023 10:41 AM CDT documented as of this encounter Care Teams Photography Professor Relationship Specialty Start Date End Date Shankar Peñaloza MD [address] [facility] [place] [address] PCP - General Internal Medicine 09/25/13 Navdeep Waldron MD [facility] [address] [place] [address] Physical Medicine & Rehabilitation - Pain Medicine 07/07/13 Shankar Peñaloza MD [facility] [place] [address] Assigned PCP 07/22/16 Richardson Alberts PA-C [address] [facility] [address] Physician Tip Stretcher Gastroenterology 03/01/22 Shankar Peñaloza MD [address] [facility] [place] [address] Assigned Pain Medication Provider 06/17/22 Marielena Sunshine PA-C [address] [facility] [address] [place], [place] [address] Physician Tip Stretcher Urology 10/03/22 Radha Rivas Personal Advocate & Liaison (PAL) 11/26/22 Marielena Sunshine PA-C [address] [facility] [address] [place] [address] Assigned Surgical Provider 12/07/22 documented as of this encounter
--- OUTSIDE RECORDS SUMMARY | 2023-07-02 14:25 | XMS_ITS | Encounter Summary ---
Author Name Unknown Organization [employer] Address [address] [place] [address] Care Team Providers Care Supply Chain Systems Manager Name Role Phone Navdeep Waldron MD Unavailable [phone] Shankar Peñaloza MD Primary Care Provider Shankar Peñaloza MD Unavailable [phone] Richardson Alberts PA-C Unavailable Shankar Peñaloza MD Unavailable [phone] Marielena Sunshine PA-C Unavailable Radha Rivas Unavailable Unavailable Marielena Sunshine PA-C Unavailable Reason for Visit * Reason Onset Date Comments Refill Request 06/17/2023 Encounter Details Date Type Department Care Team (Late st Contact Info) Description 06/17/2023 Marco Antonio Feliz [facility] Keisha [address] [place] [address] Shankar Peñaloza MD [address] [place] [address] [place] [address] Refill Request Social History [...] Telephone Encounter - Capri Loyola NP - 06/18/2023 8:20 AM CST CDL BULK DRIVER reviewed Last filled dilaudid 05/16/23 #80 tabs Last filled fentanyl patch #10 patches 05/16/23 From problem list Medication(s): Fentanyl patch, Hydromorphone, Zolpidem. Maximum quantity per month: 10, 60, 30 Clinic visit frequency required: Q 6 months -of note, last several fills of dilaudid have been for #80 tabs Last visit with PCP 04/08/22 Has upcoming visit 07/16/23 OK to fill Capri Loyola APRN, HELPER ANIMAL LABORATORY BLENDER documented in this encounter Plan of Treatment Upcoming Encounters Date Type Department Care Team (Late st Contact Info) Description 07/16/2023 3:30 PM INK BLENDER Office Visit [address] [place] [address] Shankar Peñaloza MD [address] [place] [address] [place] [address] 2023 3:00 PM INK BLENDER Virtual Visit [facility] Mental Health and Addiction [address] [place] [address] 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, [facility] [address] [place] [address] 08/13/2023 2:30 PM INK BLENDER Office Visit [facility] [address] [place] [address] [place]oko Tracey MD [address] [place] [address] documented as of this encounter Visit Diagnoses Diagnosis Fibromyalgia Mylagia and myositis, unspecified documented in this encounter Additional Health Concerns Assessment Noted Time PHQ-9 Depression Total Score: 21 024 4:47 PM INK BLENDER documented as of this encounter Care Teams Supply Chain Systems Manager Relationship Specialty Start Date End Date Shankar Peñaloza MD [address] [place] [address] [place] [address] PCP - General Internal Medicine 09/25/13 Navdeep Waldron MD [facility] [address] [place] [address] Physical Medicine & Rehabilitation - Pain Medicine 07/07/13 Shankar Peñaloza MD [address] [facility] [place] [address] Assigned PCP 07/22/16 Richardson Alberts PA-C [address] [place] [address] Physician Assistant Auditor Gastroenterology 03/01/22 Shankar Peñaloza MD [address] [facility] [place] [address] Assigned Pain Medication Provider 06/17/22 Marielena Sunshine PA-C [address] [facility] [address] [place], [place] [address] Physician Assistant Auditor Urology 10/03/22 Radha Rivas Personal Advocate & Liaison (PAL) 11/26/22 Marielena Sunshine PA-C [address] [place] [address] Assigned Surgical Provider 12/07/22 documented as of this encounter
--- OUTSIDE RECORDS SUMMARY | 2023-07-02 14:25 | XMS_ITS | Encounter Summary ---
Author Name Unknown Organization [employer] Address [address] [place] [address]. [place] [address] Care Team Providers Care Director Of Partnerships Name Role Phone Navdeep Waldron MD Unavailable [phone] Shankar Peñaloza MD Primary Care Provider Shankar Peñaloza MD Unavailable [phone] Richardson Alberts PA-C Unavailable [phone] Shankar Peñaloza MD Unavailable [phone] Marielena Sunshine PA-C Unavailable Radha Rivas Unavailable Unavailable Marielena Sunshine PA-C Unavailable Reason for Visit * Reason Comments Medication Refill Encounter Details Date Type Department Care Team (Late st Contact Info) Description [facility] [address] [place] [address] [place] [address] [place] [address] Medication Refill Social History Tobacco [...] st Contact Info) Description 07/16/2023 3:30 PM CLERICAL AIDE TEACHER Office Visit [facility] Keisha [address] [place] [address] Shankar Peñaloza MD [address] [facility] [place] [id number] 2023 3:00 PM CLERICAL AIDE TEACHER Virtual Visit [facility] [place] [address] [place] [address] 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 [facility] [address] [place] [address] 08/13/2023 2:30 PM CLERICAL AIDE TEACHER Office Visit [facility] [address] [place] [address] [place] [address] [place] [address] documented as of this encounter Visit Diagnoses Diagnosis Benign essential hypertension Essential hypertension, benign documented in this encounter Additional Health Concerns Assessment Noted Time PHQ-9 Depression Total Score: 19 023 10:41 AM CDT documented as of this encounter Care Teams Director Of Partnerships Relationship Specialty Start Date End Date Shankar Peñaloza MD [address] [facility] [place] [address] PCP - General Internal Medicine 09/25/13 Navdeep Waldron MD [facility] [address] [place] [address] Physical Medicine & Rehabilitation - Pain Medicine 07/07/13 Shankar Peñaloza MD [address] [place] [address] [place] [address] Assigned PCP 07/22/16 Richardson Alberts PA-C [address] [facility] [place] [place] [address] Physician Management Coordinator Gastroenterology 03/01/22 Shankar Peñaloza MD [address] [place] [address] Assigned Pain Medication Provider 06/17/22 Marielena Sunshine PA-C [address] [facility] [address] [place], [place] [address] Physician Management Coordinator Urology 10/03/22 Radha Rivas Personal Advocate & Liaison (PAL) 11/26/22 Marielena Sunshine PA-C [address] [facility] [address] [place], [place] [address] Assigned Surgical Provider 12/07/22 documented as of this encounter
--- OUTSIDE RECORDS SUMMARY | 2023-07-02 14:25 | XMS_ITS | Encounter Summary ---
Author Name Unknown Organization [employer] Address [address] [place] [address] Care Team Providers Care Cyanide Furnace Operator Name Role Phone Navdeep Waldron MD Unavailable [phone] Shankar Peñaloza MD Primary Care Provider [phone] Shankar Peñaloza MD Unavailable [phone] Richardson Alberts PA-C Unavailable [phone] Shankar Peñaloza MD Unavailable [phone] Marielena Sunshine PA-C Unavailable Radha Rivas Unavailable Unavailable Marielena Sunshine PA-C Unavailable Reason for Visit * Reason Comments Allied Health Visit Bp check Encounter Details Date Type Department Care Team (Latest Contact Info) Description 05/27/2023 1:30 PM DIESEL TRUCK CRANE OPERATOR Allied Health/Nurse Visit [address] [address] Allied Health Visit (Bp check ) Social History Tobacco Use Types Packs/Day Years [...] Sign Reading Time Taken Comments Blood Pressure 121/82 05/27/2023 1:42 PM DIESEL TRUCK CRANE OPERATOR Pulse 86 05/27/2023 1:42 PM DIESEL TRUCK CRANE OPERATOR Temperature - - Respiratory Rate - - Oxygen Saturation - - Inhaled Oxygen Concentration - - Weight - - Height - - Body Mass Index - - documented in this encounter Progress Notes * Tera Covarrubias MA - 05/27/2023 1:30 PM CST Anabel Robb is a 57 year old patient who comes in today for a Blood Pressure check. Initial BP: BP 121/82 (BP Location: Left arm, Patient Position: Sitting, Cuff Size: Adult Regular) Pulse 86 86 Disposition: follow-up as previously indicated by provider Shahrzad Lynch MA EL TRUCK CRANE OPERATOR documented in this encounter Plan of Treatment Upcoming Encounters Date Type Department Care Team (Late st Contact Info) Description 07/16/2023 3:30 PM DIESEL TRUCK CRANE OPERATOR Office Visit [address] [place] [address] Shankar Peñaloza MD [address] [place] [address] [place] [address] 2023 3:00 PM DIESEL TRUCK CRANE OPERATOR Virtual Visit [facility] Mental Health and Addiction [address] [place] 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 [address] 08/13/2023 2:30 PM DIESEL TRUCK CRANE OPERATOR Office Visit [facility] [address] [place] [address] [place] [address] [place] [address] documented as of this encounter Visit Diagnoses Diagnosis Benign essential hypertension- Primary Essential hypertension, benign documented in this encounter Additional Health Concerns Assessment Noted Time PHQ-9 Depression Total Score: 19 023 10:41 AM CDT documented as of this encounter Care Teams Cyanide Furnace Operator Relationship Specialty Start Date End Date Shankar Peñaloza MD [address] [place] [address] [place] [address] PCP - General Internal Medicine 09/25/13 Nav[facility] [address] [place] [address] Physical Medicine & Rehabilitation - Pain Medicine 07/07/13 Shankar Peñaloza MD [address] [facility] [place] [address] Assigned PCP 07/22/16 Richardson Alberts PA-C [address] [place] [address] Physician House Painter Helper Gastroenterology 03/01/22 Shankar Peñaloza MD [address] [facility] [place] [address] Assigned Pain Medication Provider 06/17/22 Marielena Sunshine PA-C [address] [facility] [address] [place] [address] Physician House Painter Helper Urology 10/03/22 Radha Rivas Personal Advocate & Liaison (PAL) 11/26/22 Marielena Sunshine PA-C [address] [facility] [address] [place], [place] [address] Assigned Surgical Provider 12/07/22 documented as of this encounter
--- OUTSIDE RECORDS SUMMARY | 2023-07-02 14:25 | XMS_ITS | Encounter Summary ---
Author Name Unknown Organization [place] Address [address] [facility] [place] [address] Care Team Providers Care Health Coordinator Name Role Phone Navdeep Waldron MD Unavailable [phone] Shankar Peñaloza MD Primary Care Provider Shankar Peñaloza MD Unavailable [phone] Richardson Alberts PA-C Unavailable Shankar Peñaloza MD Unavailable [phone] Marielena Sunshine PA-C Unavailable [phone] Radha Rivas Unavailable Unavailable Marielena Sunshine PA-C Unavailable Encounter Details Date Type Department Care Team (Late st Contact Info) Description 05/30/2023 Medical Correspondence [facility] [address] [place] [address] Outside, Provider Social History Tobacco Use Types Packs/Day Years [...] st Contact Info) Description 07/16/2023 3:30 PM COASTAL/HARBOR DEFENSE OFFICER Office Visit [facility] Keisha [address] [facility] [address] [place] [address] Shankar Peñaloza MD [address] [facility] [place] [id number] 2023 3:00 PM COASTAL/HARBOR DEFENSE OFFICER Virtual Visit [facility] Mental Health and Addiction [place] [address] [place] [phone] 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 LICSW [address] [place] [address] 08/13/2023 2:30 PM COASTAL/HARBOR DEFENSE OFFICER Office Visit [facility] [address] [place] [address] [place] [address] [place] [address] documented as of this encounter Visit Diagnoses Not on filedocumented in this encounter Additional Health Concerns Assessment Noted Time PHQ-9 Depression Total Score: 19 023 10:41 AM CDT documented as of this encounter Care Teams Health Coordinator Relationship Specialty Start Date End Date Shankar Peñaloza MD [address] [place] [address] [place] [address] PCP - General Internal Medicine 09/25/13 Navdeep Waldron MD [facility] [address] [place] [address] Physical Medicine & Rehabilitation - Pain Medicine 07/07/13 Shankar Peñaloza MD [address] [place] [address] [place] [address] Assigned PCP 07/22/16 Richardson Alberts PA-C [address] [place] [address] Physician Lining Stitcher Gastroenterology 03/01/22 Shankar Peñaloza MD [address] [place] [address] [place] [address] Assigned Pain Medication Provider 06/17/22 Marielena Sunshine PA-C [address] [place], [place] [address] Physician Lining Stitcher Urology 10/03/22 Radha Rivas Personal Advocate & Liaison (PAL) 11/26/22 Marielena Sunshine PA-C [address] [facility] 500 [place] [address] Assigned Surgical Provider 12/07/22 documented as of this encounter
--- OUTSIDE RECORDS SUMMARY | 2023-07-02 14:26 | XMS_ITS | Encounter Summary ---
Author Name Unknown Organization [employer] Address [address] [place] [address] Care Team Providers Care Triple Air Valve Tester Name Role Phone Navdeep Waldron MD Unavailable [phone] Shankar Peñaloza MD Primary Care Provider Shankar Peñaloza MD Unavailable [phone] Richardson Alberts PA-C Unavailable [phone] Shankar Peñaloza MD Unavailable [phone] Marielena Sunshine PA-C Unavailable Radha Rivas Unavailable Unavailable Marielena Sunshine PA-C Unavailable Reason for Visit * Reason Onset Date Comments Refill Request 05/14/2023 Encounter Details Date Type Department Care Team (Late st Contact Info) Description 05/14/2023 Marco Antonio Feliz [facility] Keisha [address] [place] [address] Shankar Peñaloza MD [address] [place] [address] [place] [address] Refill Request Social History [...] encounter Miscellaneous Notes * Telephone Encounter - Shankar Peñaloza MD - 05/16/2023 6:27 AM CST Rx refilled. MyChart note sent to pt to schedule w/ me. GER OF EMPLOYEE RELATIONS * Telephone Encounter - Koko Tracey MD - 05/15/2023 1:37 PM CST Saw patient twice for mental health concerns. It was discussed that I would not be prescribing chronic pain medication for patient. I advised her to follow up with her PCP regarding this. Triage, Can you please call patient and have her set up chronic pain visit with Dr. Peñaloza? I am not sure hewould feel comfortable just managing her chronic pain though. If this is the case and she is looking to transition care to me, would recommend referral to pain management. Please route medications appropriately. Thanks, [facility]oko Tracey [facility] GER OF EMPLOYEE RELATIONS * Telephone Encounter - Verenice Estes PA-C - 05/14/2023 4:06 PM CST Unsure why this is routed back to me. Call and discuss the message below with patient. Verenice Estes PA-C GER OF EMPLOYEE RELATIONS * Telephone Encounter - Verenice Estes PA-C - 05/14/2023 8:31 AM CST Is patient seeing Dr. Tracey for primary care? I see appts in Apr and now in Jun 2023. She has not seen Dr. Peñaloza in greater than one year. I can forward prescription requests to Dr. Tracey if this is the case. Verenice Estes PA-C GER OF EMPLOYEE RELATIONS documented in this encounter Plan of Treatment Upcoming Encounters Date Type Department Care Team (Late st Contact Info) Description 07/16/2023 3:30 PM MANAGER OF EMPLOYEE RELATIONS Office Visit [facility] Keisha [address] [facility] [address] [place] [address] Shankar Peñaloza MD [address] [place] [address] [place] [address] 2023 3:00 PM MANAGER OF EMPLOYEE RELATIONS Virtual Visit [facility] [place] [address] [place] [address] 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, [facility] [address] [place] [address] 08/13/2023 2:30 PM MANAGER OF EMPLOYEE RELATIONS Office Visit [facility] [address] [place] [address] [place] [address] [place] [address] documented as of this encounter Visit Diagnoses Diagnosis Fibromyalgia Mylagia and myositis, unspecified documented in this encounter Additional Health Concerns Assessment Noted Time PHQ-9 Depression Total Score: 19 023 10:41 AM CDT documented as of this encounter Care Teams Triple Air Valve Tester Relationship Specialty Start Date End Date Shankar Peñaloza MD [address] [place] [address] [place] [address] PCP - General Internal Medicine 09/25/13 Navdeep aWldron MD [facility] [address] [place] [address] Physical Medicine & Rehabilitation - Pain Medicine 07/07/13 Shankar Peñaloza MD [address] [place] [address] [place] [address] Assigned PCP 07/22/16 Richardson Alberts PA-C [address] [facility] [place] [address] Physician Computer Tech Gastroenterology 03/01/22 Shankar Peñaloza MD [address] [place] [place] [address] Assigned Pain Medication Provider 06/17/22 Marielena Sunshine PA-C [address] [facility] [address] [place], [place] [address] Physician Computer Tech Urology 10/03/22 Radha Rivas Personal Advocate & Liaison (PAL) 11/26/22 Marielena Sunshine PA-C [address] [facility] [address] [place], [place] [address] Assigned Surgical Provider 12/07/22 documented as of this encounter
--- OUTSIDE RECORDS SUMMARY | 2023-07-02 14:26 | XMS_ITS | Encounter Summary ---
Author Name Unknown Organization [employer] Address [address] [place] [address] Care Team Providers Care Narrow Gauge Brakeman Name Role Phone Navdeep Waldron MD Unavailable [phone] Shankar Peñaloza MD Primary Care Provider Shankar Peñaloza MD Unavailable [phone] Richardson Alberts PA-C Unavailable [phone] Shankar Peñaloza MD Unavailable [phone] Marielena Sunshine PA-C Unavailable Radha Rivas Unavailable Unavailable Marielena Sunshine PA-C Unavailable [phone] Reason for Visit * Reason Comments Cough Entered automaticall y based on patient selection in [employer]. Encounter Details Date Type Department Care Team (Late st Contact Info) Description 05/12/2023 8:15 AM JOY OPERATOR E-Visit [facility] [address] [place] [phone] Ania Gomez APRN RIGHT OF WAY MANAGER [address] [place] [phone] Cough (Entered automatically based on christopher... Social History Tobacco Use Types Packs/Day Years [...] on file documented as of this encounter Patient Instructions * Patient Instructions* Ania Gomez APRN RIGHT OF WAY MANAGER - 05/12/2023 8:15 AM JOY OPERATOR Images from the original note were not included. Acute Sinusitis: Care Instructions Overview Acute sinusitis is an inflammation of the mucous membranes inside the nose and sinuses. Sinuses arethe hollow spaces in your skull around the eyes and nose. Acute sinusitis often follows a cold. Acute sinusitis causes thick, discolored mucus that drains from the nose or down the back of the throat. It also can cause pain and pressure in your head and face along with a stuffy or blocked nose. In most cases, sinusitis gets better on its own in 1 to 2 weeks. But some mild symptoms may last for several weeks. Sometimes antibiotics are needed if there is a bacterial infection. Follow-up care is a padilla part of your treatment and safety. Be sure to make and go to all appointments, and call your doctor if you are having problems. It's also a good idea to know your test resultsand keep a list of the medicines you take. How can you care for yourself at home? Use saline (saltwater) nasal washes. This can help keep your nasal passages open and wash out mucusand allergens. You can buy saline nose washes at a grocery store or drugstore. Follow the instructions on the package. You can make your own at home. Add 1 teaspoon of non-iodized salt and 1 teaspoon of baking soda to 2 cups of distilled or boiled and cooled water. Fill a squeeze bottle or a nasal cleansing pot (suchas a neti pot) with the nasal wash. Then put the tip into your nostril, and lean over the sink. With your mouth open, gently squirt the liquid. Repeat on the other side. Try a decongestant nasal spray like oxymetazoline (Afrin). Do not use it for more than 3 days in a row. Using it for more than 3 days can make your congestion worse. If needed, take an hivr-fba-duvfpht pain medicine, such as acetaminophen (Tylenol), ibuprofen (Advil, Motrin), or naproxen (Aleve). Read and follow all instructions on the label. If the doctor prescribed antibiotics, take them as directed. Do not stop taking them just because you feel better. You need to take the full course of antibiotics. Be careful when taking ibcy-ugx-odxhwjp cold or flu medicines and Tylenol at the same time. Many ofthese medicines have acetaminophen, which is Tylenol. Read the labels to make sure that you are nottaking more than the recommended dose. Too much acetaminophen (Tylenol) can be harmful. Try a steroid nasal spray. It may help with your symptoms. Breathe warm, moist air. You can use a steamy shower, a hot bath, or a sink filled with hot water. Avoid cold, dry air. Using a humidifier in your home may help. Follow the directions for cleaning the machine. When should you call for help? Call your doctor now or seek immediate medical care if: ?? You have new or worse swelling, redness, or pain in your face or around one or both of your eyes. ?? You have double vision or a change in your vision. ?? You have a high fever. ?? You have a severe headache and a stiff neck. ?? You have mental changes, such as feeling confused or much less alert. Watch closely for changes in your health, and be sure to contact your doctor if: ?? You are not getting better as expected. Where can you learn more? Go to https://[email or web address]/patiented Enter I933 in the search box to learn more about Acute Sinusitis: Care Instructions. Current as of: August 06, 2022?Content Version: 13.8 ?? [employer]. Care instructions adapted under license by your healthcare professional. If you have questions about a medical condition or this instruction, always ask your healthcare professional. [employer] disclaims any warranty or liability for your use of this information. You may want to try a nasal lavage (also known as nasal irrigation). You can find vpne-oge-ahkzgwe products, such as Neti-Pot, at retail locations or make your own at home. Instructions for homemade nasal lavage and more information on the process are available online at http://www.aafp.org/afp/2008 /1115/p1121.html. OPERATOR documented in this encounter Miscellaneous Notes * Telephone Encounter - Ania Gomez APRN CNP - 05/12/2023 9:18 AM CST Provider E-Visit time total (minutes): 2 OPERATOR documented in this encounter Plan of Treatment Upcoming Encounters Date Type Department Care Team (Late st Contact Info) Description 07/16/2023 3:30 PM JOY OPERATOR Office Visit [facility] [address] [place] [address] Drive [address] [place] [phone] Shankar Peñaloza MD [address] [place] [address] [place] [phone] 3:00 PM JOY OPERATOR Virtual Visit [facility] [address] [place] [address] 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 [address] [place] [address] 08/13/2023 2:30 PM JOY OPERATOR Office Visit [facility] [id number] [place] [phone] [place] [address] [place] [address] documented as of this encounter Visit Diagnoses Diagnosis Acute recurrent pansinusitis- Primary Other acute sinusitis documented in this encounter Additional Health Concerns Assessment Noted Time PHQ-9 Depression Total Score: 19 023 10:41 AM CDT documented as of this encounter Care Teams Narrow Gauge Brakeman Relationship Specialty Start Date End Date Shankar Peñaloza MD [address] [place] [address] [place] [id number] PCP - General Internal Medicine 09/25/13 Navdeep Waldron MD [facility] [address] [place] [address] Physical Medicine & Rehabilitation - Pain Medicine 07/07/13 Shankar Peñ[place] [address] [place] [address] [place] [address] Assigned PCP 07/22/16 Richardson Alberts PA-C [address] [place] [address] Physician Supervisor Screen Making Gastroenterology 03/01/22 Shankar Peñaloza MD [address] [place] [address] [place] [address] Assigned Pain Medication Provider 06/17/22 Marielena Sunshine PA-C [address] [id number] Physician Supervisor Screen Making Urology 10/03/22 Radha Rivas Personal Advocate & Liaison (PAL) 11/26/22 Marielena Sunshine PA-C [address] [facility] [address] [place], [place] [address] Assigned Surgical Provider 12/07/22 documented as of this encounter
--- OUTSIDE RECORDS SUMMARY | 2023-07-02 14:26 | XMS_ITS | Encounter Summary ---
Author Name Unknown Organization [facility] Address [address] [place] [address] Care Team Providers Care Adult Live In Caregiver Name Role Phone Navdeep Waldron MD Unavailable [phone] Shankar Peñaloza MD Primary Care Provider [phone] Shankar Peñaloza MD Unavailable [phone] Richardson Alberts PA-C Unavailable [phone] Shankar Peñaloza MD Unavailable [phone] Marielena Sunshine PA-C Unavailable Radha Rivas Unavailable Unavailable Marielena Sunshine PA-C Unavailable Reason for Visit * Reason Comments Headache Encounter Details Date Type Department Care Team (Late st Contact Info) Description 04/11/2023 1:25 PM CDT - 04/11/2023 3:19 PM CDT [facility] Emergency Dept [address] [place] [address] Marco Charles MD [facility] [address] [place], [place] [id number] Nonintractable headache, unspecified chronicity pattern, unspecified headache type; Subtherapeutic international normalized ratio (INR) Discharge Disposition: Home or Self Care Social [...] Sign Reading Time Taken Comments Blood Pressure 154/91 04/11/2023 1:56 PM CDT Pulse 77 04/11/2023 1:56 PM CDT Temperature 36.7 ??C (98.1 ??F) 04/11/2023 10:53 AM C DT Respiratory Rate 18 04/11/2023 10:53 AM CDT Oxygen Saturation 98% 04/11/2023 10:53 AM CDT Inhaled Oxygen Concentration - - Weight - - Height - - Body Mass Index - - documented in this encounter Discharge Instructions * Discharge Instructions* Marco Charles MD - 04/11/2023 3:05 PM CDT You have something called a meningioma which is a small noncancerous growth in the brain measuring 6 mm. This will need be followed up by your primary care physician. Your INR was also low today at 1.6. Please have discussion with your INR clinic regarding further dosing. Discharge Instructions Headache You were seen today for a headache. Headaches may be caused by many different things such as muscletension, sinus inflammation, anxiety and stress, having too little sleep, too much alcohol, some medical conditions or injury. You may have a migraine, which is caused by changes in the blood vesselsin your head. At this time your provider does not find that your headache is a sign of anything zabala erous or life-threatening. However, sometimes the signs of serious illness do not show up right away. Generally, every Emergency Department visit should have a follow-up clinic visit with either a primary or a specialty clinic/provider. Please follow-up as instructed by your emergency provider today. Return to the Emergency Department if: You get a new fever of 100.4??F or higher. Your headache gets much worse. You get a stiff neck with your headache. You get a new headache that is significantly different or worse than headaches you have had before. You are vomiting (throwing up) and cannot keep food or water down. You have blurry or double vision or other problems with your eyes. You have a new weakness on one side of your body. You have difficulty with balance which is new. You or your family thinks you are confused. You have a seizure. What can I do to help myself? Pain medications - You may take a pain medication such as Tylenol?? (acetaminophen), Advil??, Motrin?? (ibuprofen) or Aleve?? (naproxen). Take a pain reliever as soon as you notice symptoms. Starting medications as soon as you start to have symptoms may lessen the amount of pain you have. Relaxing in a quiet, dark room may help. Get enough sleep and eat meals regularly. You may need to watch for certain foods or other things which may trigger your headaches. Keeping ajournal of your headaches and possible triggers may help you and your primary provider to identify things which you should avoid which may be causing your headaches. If you were given a prescription for medicine here today, be sure to read all of the information (including the package insert) that comes with your prescription. This will include important information about the medicine, its side effects, and any warnings that you need to know about. The pharmacist who fills the prescription can provide more information and answer questions you may have about the medicine. If you have questions or concerns that the pharmacist cannot address, please call or return to the Emergency Department. Remember that you can always come back to the Emergency Department if you are not able to see your regular provider in the amount of time listed above, if you get any new symptoms, or if there is anything that worries you. documented in this encounter Medications at Time of Discharge Medication Sig Dispensed Refills Start Date End Date Fexofenadine HCl (ARNAV PO) Take 180 mg by mouth daily as needed 0 hydrocortisone (WESTCORT) 0.2 % external creamIndications:[place]land titis Apply sparingly to affected area three times daily as needed. 60 g 1 11/14/2020 ondansetron (ZOFRAN ODT) 4 MG ODT tabIndications:Nausea and vomiting in adult,Epigastric pain Take 1 tablet (4 mg) by mouth every 8 hours as needed for nausea 30 tablet 0 05/18/2022 senna (SENOKOT) 8.6 MG tablet Take 1 tablet by mouth every evening 0 triamcinolone (KENALOG) 0.1 % external creamIndications:[place]land titis Apply topically 2 times daily 30 g 0 10/01/2022 warfarin ANTICOAGULANT (COUMADIN) 10 MG tablet Take by mouth See Admin Instructions Monitors Chromogenic Factor X via [facility] Alternates between 10 mg and 7.5 mg 0 amoxicillin (AMOXIL) 875 MG tabletIndications:Bact erial sinusitis Take 1 tablet (875 mg) by mouth 2 times daily 14 tablet 0 04/09/2023 06/25/2023 clotrimazole-betametha sone (LOTRISONE) 1-0.05 % external creamIndications:Anal fissure Apply topically 2 times daily as needed (fissure) 30 g 1 03/19/2019 04/13/2023 fentaNYL (DURAGESIC) 25 mcg/hr 72 hr patchIndications:Fibro myalgia Place 1 patch onto the skin every 72 hours remove old patch. 10 patch 0 03/13/2023 04/13/2023 hydrochlorothiazide (HYDRODIURIL) 12.5 MG tabletIndications:Ned gn essential hypertension Take 1 tablet (12.5 mg) by mouth daily 30 tablet 0 04/09/2023 05/12/2023 HYDROmorphone (DILAUDID) 2 MG tabletIndications:Fibr omyalgia Take 1 tablet (2 mg) by mouth every 6 hours as needed for severe pain 80 tablet 0 02/11/2023 04/13/2023 naloxone (NARCAN) 4 MG/0.1ML nasal sprayIndications:Fibro myalgia [place] 1 spray (4 mg) into one nostril [...] or vomiting 20 tablet 0 05/18/2022 06/25/2023 zolpidem (AMBIEN) 5 MG tabletIndications:Prim dave insomnia TAKE 1 TABLET(5 MG) BY MOUTH EVERY NIGHT NEEDED FOR SLEEP 30 tablet 5 11/04/2022 05/20/2023 documented as of this encounter ED Notes * Joie Carter RN - 04/11/2023 2:06 PM CDT Pt extremely nauseous will inform MD * Zara Crenshaw RN - 04/11/2023 10:52 AM CDT Patient reports a headache for 7 days. Patient states she is on antibiotics for a sinus infection. Patient also reports that she wears a fentanyl patch and has been taking Dilaudid at home Triage Assessment (Adult) Row Name 04/11/23 1052 Triage Assessment Airway WDL WDL Respiratory WDL Respiratory WDL WDL Skin Circulation/Temperature WDL Skin Circulation/Temperature WDL WDL Cardiac WDL Cardiac WDL WDL Peripheral/Neurovascular WDL Peripheral Neurovascular WDL WDL Cognitive/Neuro/Behavioral WDL Cognitive/Neuro/Behavioral WDL WDL * Marco Charles MD - 04/11/2023 10:36 AM CDT History Chief Complaint: Headache The history is provided by the patient. Anabel Robb is a 57 year old female who presents to the ED for evaluation of headache. The patient reports that around 1.5 weeks ago she was started on an antidepressant and began experiencing various adverse symptoms including headache. She spoke with her care provider who advised her to stop taking the medication. She explains that she has stopped taking the medication but has continued to experience headache for over the past 7 days. She reports a history of sinus infections and has been taking Augmentin without any alleviation of her pain. She states that this headache is different from her regular headaches because of the duration that it has persisted although otherwise feels similar. She feels this headache throughout her head. She denies experiencing fever. She notes that she takes warfarin for a history of antiphospholipid syndrome. Independent Historian: None - Patient Only Review of External Notes: None Medications: Amoxicillin Fentanyl patch Hydrochlorothiazide Hydromorphone Naloxone nasal spray Ondansetron Pantoprazole Prochlorperazine Senna Warfarin Zolpidem Past Medical History: Antiphospholipid antibody syndrome Jama's esophagus Chronic headaches Chronic pain syndrome Colitis Degenerative disc disease, cervical DVT Fibromyalgia Gout Memory loss Mumps PE Rheumatoid arthritis Serotonin syndrome Transient alteration of awareness Vertigo Past Surgical History: Breast lumpectomy, right, x2 Cholecystectomy EGD Gynecologic surgery Hysterectomy Vascular surgery Physical Exam Patient Vitals for the past 24 hrs: BP Temp Temp src Pulse Resp SpO2 04/11/23 1356 (!) 154/91 -- -- 77 -- -- 04/11/23 1053 (!) 149/98 98.1 ??F (36.7 ??C) Oral 91 18 98 % Physical Exam HEENT: External ears are normal. Temporal arteries are non-tender. Oropharynx is moist, without lesions or trismus. Eyes: PERRL. EOMs intact. No corneal clouding. NECK: Supple, no meningismus. Negative Brudzinski's sign. CV: Regular rate and rhythm. No murmurs, rubs or gallops. PULM: Clear to auscultation bilateral. No respiratory distress. No stridor or wheezing. ABD: Soft, non-tender, non-distended. No rebound or guarding. MSK: No gross deformity to all four extremities. No significant joint effusions. LYMPH: No cervical lymphadenopathy. NEURO: A & O x 3 CN II-XII intact, speech is clear with no aphasia. Finger to nose within normal limits. No pronator drift. Strength is 5/5 in all 4 extremities. Sensation is intact. Normal muscular tone, no tremor. SKIN: Warm, dry and intact. PSYCH: Mood is good and affect is appropriate. Emergency Department Course Imaging: Head CT w/o contrast Preliminary Result IMPRESSION: 1. No acute intracranial abnormality. 2. Chronic right peripheral cerebellar infarction. 3. Small 6 mm calcification along the left posterior falx, possible small meningioma. Consider follow-up brain MRI for further characterization. Report per radiology Laboratory: Labs Ordered and Resulted from Time of ED Arrival to Time of ED Departure BASIC METABOLIC PANEL - Abnormal Result Value Sodium 139 Potassium 4.7 Chloride 105 Carbon Dioxide (CO2) 24 Anion Gap 10 Urea Nitrogen 22.5 (*) Creatinine 0.92 GFR Estimate 73 Calcium 9.3 Glucose 110 (*) INR - Abnormal INR 1.62 (*) CBC WITH PLATELETS AND DIFFERENTIAL WBC Count 7.0 RBC Count 4.66 Hemoglobin 13.6 Hematocrit 41.8 MCV 90 MCH 29.2 MCHC 32.5 RDW 12.6 Platelet Count 223 % Neutrophils 75 % Lymphocytes 17 % Monocytes 5 % Eosinophils 2 % Basophils 1 % Immature Granulocytes 0 NRBCs per 100 WBC 0 Absolute Neutrophils 5.3 Absolute Lymphocytes 1.2 Absolute Monocytes 0.4 Absolute Eosinophils 0.1 Absolute Basophils 0.0 Absolute Immature Granulocytes 0.0 Absolute NRBCs 0.0 Emergency Department Course & Assessments: Interventions: Medications metoclopramide (REGLAN) injection 10 mg (10 mg Intravenous $Given 04/11/23 1351) diphenhydrAMINE (BENADRYL) injection 25 mg (25 mg Intravenous $Given 04/11/23 1352) ondansetron (ZOFRAN) injection 8 mg (8 mg Intravenous $Given 04/11/23 1408) Independent Interpretation (X-rays, CTs, rhythm strip): None Assessments, Consultations, & Discussion of Management & Tests: ED Course as of 04/11/23 1504 FriApr 11, 2023 1329 I obtained history and examined the patient. 1502 I spoke again with the patient, explaining findings and discussing the plan for care. Social Determinants of Health affecting care: None Disposition: The patient was discharged to home. Impression & Plan Medical Decision Makin-year-old female presents with 7-10 days of headache. Due to the duration of symptoms and presence of warfarin, CT scan of the head was performed and unremarkable for acute disease. Incidental finding of 6 mm lesion likely suggestive meningioma. Patient made aware of the finding. She has no features concerning for occult subarachnoid hemorrhage, meningitis, dural sinus thrombosis, temporal arteritis, glaucoma to warrant further work-up. She has a history of migraines for which this likely represents recurrence induced by adverse drug effect. Symptoms improved with interventions as describedabove. Patient safe with discharge home and is requesting refill of Compazine. Follow- up with PCP and return to ED for worsening symptoms. Patient incidentally noted to have subtherapeutic INR. She will take 10 mg of warfarin tomorrow, 7.5 mg on Friday and call her INR clinic for further direction Diagnosis: ICD-10-CM 1. Nonintractable headache, unspecified chronicity pattern, unspecified headache type R51.9 2. Subtherapeutic international normalized ratio (INR) R79.1 Discharge Medications: New Prescriptions No medications on file Scribe Disclosure: I, Daray Posadas, am serving as a scribe at 2:06 PM on 04/11/2023 to document services personally performed by Marco Charles MD based on my observations and the provider's statements pamela. Marco Charles MD 04/11/231954 documented in this encounter Plan of Treatment Upcoming Encounters Date Type Department Care Team (Late st Contact Info) Description 07/16/2023 3:30 PM [place] [place] Office Visit [place] [id number] [facility] [place] [address] Shaknar Peñaloza MD [address] [facility] [place] [address] 2023 3:00 PM [place] Virtual Visit [facility] [address] [place] [address] 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 [address] 08/13/2023 2:30 PM [place] Office Visit [facility] [address] [place] [phone] [place] [address] [place], [place] [id number] documented as of this encounter Procedures Procedure Name Priority Date/Time Associated Diagnosis Comments CT HEAD W/O CONTRAST STAT 04/11/2023 2:18 PM CDT EXTRA TUBE STAT 04/11/2023 1:52 PM CDT EXTRA RED TOP TUBE STAT 04/11/2023 1: 52 PM CDT CBC WITH PLATELETS AND DIFFERENTIAL STAT 04/11/2023 1:52 PM CDT CBC WITH PLATELETS & DIFFERENTIAL STAT 04/11/2023 1:52 PM CDT INR STAT 04/11/2023 1:52 PM CDT BASIC METABOLIC PANEL STAT 04/11/2023 1:52 PM CDT documented in this encounter Results * Head CT w/o contrast (04/11/2023 2:18 [...] further characterization. YASMINE LAWSON MD SYSTEM ID: [id number] Narrative 04/11/2023 3:[address] OF [...] further characterization. YASMINE LAWSON MD SYSTEM ID: [id number] Marco Charles MD IMG CT ORDERABLES * Extra Red Top Tube (04/11/2023 1:52 PM CDT) Pathologist [facility] Hold Specimen [facility] 04/11/2023 3:01 PM CDT LABORATORY Blood BLOOD SPECIMEN / Unknown Venipuncture / Unknown 04/11/2023 1:52 PM CDT 04/11/2023 1:59 PM CDT Marco Charles MD LAB - BLOOD ORDER [facility] LABORATORY [facility] [address] [facility] Lab (1st floor, no room number) [place] [address], [facility] [phone] * CBC with platelets and differential (04/11/2023 1:52 PM CDT) WBC Count 7.0 4.0 - 11.0 10e3/uL 04/11/2023 2:03 PM CDT [facility] RBC Count 4.66 3.80 - 5.20 10e6/uL 04/11/2023 2:03 PM CDT [facility] Hemoglobin 13.6 11.7 - 15.7 g/dL 04/11/2023 2:03 PM CDT [facility] Hematocrit 41.8 35.0 - 47.0 % 04/11/2023 2:03 PM CDT [facility] MCV 90 78 - 100 fL 04/11/2023 2:03 PM CDT [facility] MCH 29.2 26.5 - 33.0 pg 04/11/2023 2:03 PM CDT [facility] MCHC 32.5 31.5 - 36.5 g/dL 04/11/2023 2:03 PM CDT [facility] RDW 12.6 10.0 - 15.0 % 04/11/2023 2:03 PM CDT [facility] Platelet Count 223 150 - 450 10e3/uL 04/11/2023 2:03 PM CDT [facility] % Neutrophils 75 % 04/11/2023 2:03 PM CDT [facility] % Lymphocytes 17 % 04/11/2023 2:03 PM CDT [facility] % Monocytes 5 % 04/11/2023 2:03 PM CDT [facility] % Eosinophils 2 % 04/11/2023 2:03 PM CDT [facility] % Basophils 1 % 04/11/2023 2:03 PM CDT [facility] % Immature Granulocytes 0 % 04/11/2023 2:03 PM CDT [facility] NRBCs per 100 WBC 0 <1 /100 023 2:03 PM CDT [facility] Absolute Neutrophils 5.3 1.6 - 8.3 10e3/uL 04/11/2023 2:03 PM CDT [facility] Absolute Lymphocytes 1.2 0.8 - 5.3 10e3/uL 04/11/2023 2:03 PM CDT [facility] Absolute Monocytes 0.4 0.0 - 1.3 10e3/uL 04/11/2023 2:03 PM CDT [facility] Absolute Eosinophils 0.1 0.0 - 0.7 10e3/uL 04/11/2023 2:03 PM CDT [facility] Absolute Basophils 0.0 0.0 - 0.2 10e3/uL 04/11/2023 2:03 PM CDT [facility] Absolute Immature Granulocytes 0.0 <=0.4 10e3/uL 04/11/2023 2:03 PM CDT [facility] Absolute NRBCs 0.0 10e3/uL 04/11/2023 2:03 PM CDT [facility] Blood BLOOD SPECIMEN / Unknown Venipuncture / Unknown 04/11/2023 1:52 PM CDT 04/11/2023 1:59 PM CDT Marco Charles MD LAB - BLOOD ORDER [facility] LAB[facility] [address] Lab (1st floor, no room number) [place] [address], [facility] [phone] * (ABNORMAL) INR (04/11/2023 1:52 PM CDT) INR 1.62(H) 0.85 - 1.15 04/11/2023 2:09 PM CDT [facility] Blood BLOOD SPECIMEN / Unknown Venipuncture / Unknown 04/11/2023 1:52 PM CDT 04/11/2023 1:59 PM CDT Marco Charles MD LAB - BLOOD ORDER P[facility]RITO LABORATORY [facility] [address] Lab (1st floor, no room number) [place] [address], [facility] [phone] * (ABNORMAL) Basic metabolic panel (04/11/2023 1:52 PM CDT) Sodium 139 135 - 145 mmol/L 04/11/2023 2:21 PM CDT [facility] Comment:Reference intervals for this test were updated on 03/04/2023 to more accurately reflect our healthy population. There may be differences in the flagging of prior results with similar values performed with this method. Interpretation of those prior results can be made in the context of the updated reference intervals. Potassium 4.7 3.4 - 5.3 mmol/L 04/11/2023 2:21 PM CDT LABORATORY Chloride 105 98 - 107 mmol/L 04/11/2023 2:21 PM CDT LABORATORY Carbon Dioxide (CO2) 24 22 - 29 mmol/L 04/11/2023 2:21 PM CDT LABORATORY Anion Gap 10 7 - 15 mmol/L 04/11/2023 2:21 PM CDT LABORATORY Urea Nitrogen 22.5(H) 6.0 - 20.0 mg/dL 04/11/2023 2:21 PM CDT LABORATORY Creatinine 0.92 0.51 - 0.95 mg/dL 04/11/2023 2:21 PM CDT LABORATORY GFR Estimate 73 >60 mL/min/1. 73m2 04/11/2023 2:21 PM CDT LABORATORY Calcium 9.3 8.6 - 10.0 mg/dL 04/11/2023 2:21 PM CDT LABORATORY Glucose 110(H) 70 - 99 mg/dL 04/11/2023 2:21 PM CDT LABORATORY Blood BLOOD SPECIMEN / Unknown Venipuncture / Unknown 04/11/2023 1:52 PM CDT 04/11/2023 1:59 PM CDT Marco Charles MD LAB - BLOOD ORDER PEDRITO [facility] Acute Care Lab [address] Lab (1st floor, no room number) [place] [address], [facility] [phone] documented in this encounter Visit Diagnoses Diagnosis Nonintractable headache, unspecified chronicity pattern, unspecified headache type Subtherapeutic international normalized ratio (INR) Abnormal coagulation profile documented in this encounter Administered Medications Inactive Administered Medications - up to 3 most recent administrations Medication Order MAR Action Action Date Dose Rate Site diphenhydrAMINE (BENADRYL) injection 25 mg 25 mg, Intravenous, ONCE, On Fri04/11/23 at 1335, For 1 dose, Protect from light. $Given 04/11/2023 1:52 PM CDT 25 mg metoclopramide (REGLAN) injection 10 mg 10 mg, Intravenous, Administer over 2 Minutes, ONCE, On Fri04/11/23 at 1335, For 1 dose, Avoid use if patient has full bowel obstruction or perforation. Irritant. $Given 04/11/2023 1:51 PM CDT 10 mg ondansetron (ZOFRAN) injection 8 mg 8 mg, Intravenous, ONCE, Administer over 2-5 Minutes, On Fri04/11/23 at 1410, For 1 dose, Irritant. $Given 04/11/2023 2:08 PM CDT 8 mg documented in this encounter Active and Recently Administered Medications Times are shown in CDT. Scheduled Medication Order 04/09/2023 04/10/2023 04/11/2023 diphenhydrAMINE (BENADRYL) injection 25 mg (COMPLETED) 25 mg, Intravenous, ONCE, On Fri04/11/23 at 1335, For 1 dose, Protect from light. 1352 ($Given - Provi lynn: Joie Carter RN) metoclopramide (REGLAN) injection 10 mg (COMPLETED) 10 mg, Intravenous, Administer over 2 Minutes, ONCE, On Fri04/11/23 at 1335, For 1 dose, Avoid use if patient has full bowel obstruction or perforation. Irritant. 1351 ($Given - Provi lynn: Joie Carter RN) ondansetron (ZOFRAN) injection 8 mg (COMPLETED) 8 mg, Intravenous, ONCE, Administer over 2-5 Minutes, On Fri04/11/23 at 1410, For 1 dose, Irritant. 1408 ($Given - Provi lynn: Joie Carter RN) documented in this encounter Additional Health Concerns Assessment Noted Time PHQ-9 Depression Total Score: 19 023 10:41 AM CDT documented as of this encounter Care Teams Adult Live In Caregiver Relationship Specialty Start Date End Date Shankar Peñaloza MD [address] [place] [address] [place] [address] PCP - General Internal Medicine 09/25/13 Navdeep Waldron MD [facility] [address] [place] [address] Physical Medicine & Rehabilitation - Pain Medicine 07/07/13 Shankar Peñaloza MD [address] [place] [address] [place] [address] Assigned PCP 07/22/16 Richardson Alberts PA-C [address] [place] [address] Physician [facility] 03/01/22 Shankar Peñaloza MD [address] [facility] [place] [address] Assigned Pain Medication Provider 06/17/22 Marielena Sunshine PA-C [address] [facility] [address] [place], [place] [address] Physician [facility] [facility] 10/03/22 Radha Rivas Personal Advocate & Liaison (PAL) 11/26/22 Marielena Sunshine PA-C [address] [facility] [address] [place], [place] [address] Assigned Surgical Provider 12/07/22 documented as of this encounter
--- OUTSIDE RECORDS SUMMARY | 2023-07-02 14:26 | XMS_ITS | Encounter Summary ---
Author Name Unknown Organization [place] Address [address] [place] [address] Care Team Providers Care Cad Administrator Name Role Phone Navdeep Waldron MD Unavailable [phone] Shankar Peñaloza MD Primary Care Provider Shankar Peñaloza MD Unavailable [phone] Richardson Alberts PA-C Unavailable [phone] Shankar Peñaloza MD Unavailable [phone] Marielena Sunshine PA-C Unavailable Radha Rivas Unavailable Unavailable Marielena Sunshine PA-C Unavailable Reason for Visit * Reason Onset Date Comments Refill Request 04/13/2023 Encounter Details Date Type Department Care Team (Late st Contact Info) Description 04/13/2023 [facility] [place] [address] [place] [address] Shnakar Peñaloza MD [address] [place] [address] [place] [address] Refill Request Social History [...] st Contact Info) Description 07/16/2023 3:30 PM PHOTOGRAPHIC ARTIST Office Visit [facility] [place] [address] [place] [phone] Shankar Peñaloza MD [address] [facility] [place] [address] 2023 3:00 PM PHOTOGRAPHIC ARTIST Virtual Visit [facility] [place] [address] [place] [address] 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, [facility] [address] [place] [address] 08/13/2023 2:30 PM PHOTOGRAPHIC ARTIST Office Visit [facility] [address] [place] [phone] [place] [address] [place], [place] [phone] documented as of this encounter Visit Diagnoses Diagnosis Anal fissure Fibromyalgia Mylagia and myositis, unspecified documented in this encounter Additional Health Concerns Assessment Noted Time PHQ-9 Depression Total Score: 19 023 10:41 AM CDT documented as of this encounter Care Teams Cad Administrator Relationship Specialty Start Date End Date Shankar Peñaloza MD [address] [place] [address] [place] [address] PCP - General Internal Medicine 09/25/13 Navdeep Waldron MD [facility] [address] [place] [address] Physical Medicine & Rehabilitation - Pain Medicine 07/07/13 Shankar Peñaloza MD [address] [place] [address] [place] [address] Assigned PCP 07/22/16 Richardson Alberts PA-C [address] [facility] [address] Physician Human Resources Admin Gastroenterology 03/01/22 Shankar Peñaloza MD [address] [facility] [place] [address] Assigned Pain Medication Provider 06/17/22 Marielena Sunshine PA-C [address] [facility] [address] [place], [place] [address] Physician Human Resources Admin Urology 10/03/22 Radha Rivas Personal Advocate & Liaison (PAL) 11/26/22 Marielena Sunshine PA-C [address] [facility] 500 [place] [address] Assigned Surgical Provider 12/07/22 documented as of this encounter
--- OUTSIDE RECORDS SUMMARY | 2023-07-02 14:26 | XMS_ITS | Encounter Summary ---
Author Name Unknown Organization [place] Address [address] [place] [address]. [place] [address] Care Team Providers Care Machine Engineer Name Role Phone Navdeep Waldron MD Unavailable [phone] Shankar Peñaloza MD Primary Care Provider Shankar Peñaloza MD Unavailable [phone] Richardson Alberts PA-C Unavailable [phone] Shankar Peñaloza MD Unavailable [phone] Marielena Sunshine PA-C Unavailable Radha Rivas Unavailable Unavailable Marielena Sunshine PA-C Unavailable Reason for Visit * Reason Comments Medication Refill Encounter Details Date Type Department Care Team (Late st Contact Info) Description [facility] [address] [place] [address] [place] [address] [place] [address] Medication Refill Social History Tobacco [...] encounter Miscellaneous Notes * Telephone Encounter - Elvi Quinones RN - 05/12/2023 2:40 PM CST Duplicate - prescription request refused. PRESIDENT INVESTOR RELATIONS documented in this encounter Plan of Treatment Upcoming Encounters Date Type Department Care Team (Late st Contact Info) Description 07/16/2023 3:30 PM VICE PRESIDENT INVESTOR RELATIONS Office Visit [facility] [place] [address] [place] [address] Shankar Peñaloza MD [address] [place] [address] [place] [address] 2023 3:00 PM VICE PRESIDENT INVESTOR RELATIONS Virtual Visit [facility] [address] [place] [address] 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, [facility] [address] [place] [address] 08/13/2023 2:30 PM VICE PRESIDENT INVESTOR RELATIONS Office Visit [facility] [address] [place] [address] [place] [address] [place] [address] documented as of this encounter Visit Diagnoses Diagnosis Benign essential hypertension Essential hypertension, benign documented in this encounter Additional Health Concerns Assessment Noted Time PHQ-9 Depression Total Score: 19 023 10:41 AM CDT documented as of this encounter Care Teams Machine Engineer Relationship Specialty Start Date End Date Shankar Peñaloza MD [address] [place] [address] [place] [address] PCP - General Internal Medicine 09/25/13 Navdeep Waldron MD [facility] [address] [place] [address] Physical Medicine & Rehabilitation - Pain Medicine 07/07/13 Shankar Peñaloza MD [address] [place] [address] [place] [address] Assigned PCP 07/22/16 Richardson Alberts PA-C [address] [place] [address] Physician Recreation Center Director Gastroenterology 03/01/22 Shankar Peñaloza MD [address] [facility] [place] [address] Assigned Pain Medication Provider 06/17/22 Marielena Sunshine PA-C [address] [facility] 377 [place], [place] [address]77 Physician Recreation Center Director Urology 10/03/22 Radha Rivas Personal Advocate & Liaison (PAL) 11/26/22 Marielena Sunshine PA-C [address] [facility] 500 [place] [address] Assigned Surgical Provider 12/07/22 documented as of this encounter
--- OUTSIDE RECORDS SUMMARY | 2023-07-02 14:26 | XMS_ITS | Encounter Summary ---
Author Name Unknown Organization [facility] Address [address] [place] [address]. [place] [address] Care Team Providers Care Chancery Clerk Name Role Phone Navdeep Waldron MD Unavailable [phone] Shankar Peñaloza MD Primary Care Provider [phone] Shankar Peñaloza MD Unavailable [phone] Richardson Alberts PA-C Unavailable [phone] Shankar Peñaloza MD Unavailable [phone] Marielena Sunshine PA-C Unavailable Radha Rivas Unavailable Unavailable Marielena Sunshine PA-C Unavailable Reason for Visit * Reason Comments Medication Refill Encounter Details Date Type Department Care Team (Late st Contact Info) Description [facility] [address] [place] [address] [place] [address] [place] [address] Medication Refill Social History Tobacco [...] on file Sexual Orientation Not on file COVID-19 Exposure Response Date Recorded In the last 10 days, have yo u been in contact with someone who was confirmed or suspected to have Coronavirus/COVID-19? No / Unsure 03/11/2023 10:02 AM CDT documented as of this encounter Miscellaneous Notes * Telephone Encounter - Moe Barnes RN - 04/09/2023 3:22 PM CDT Duplicate - prescription request refused. documented in this encounter Plan of Treatment Upcoming Encounters Date Type Department Care Team (Late st Contact Info) Description 07/16/2023 3:30 PM SUPERVISOR PLASTERING [facility] [address] [place] [address] Drive [address] [place] [address] Shankar Peñaloza MD [address] [place] [address] [place] [address] 2023 3:00 PM SUPERVISOR PLASTERING [facility] [address] [place] [address] 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, [facility] [address] [place] [address] 08/13/2023 2:30 PM SUPERVISOR PLASTERING Office Visit [facility] [address] [place] [address] [place] [address] [place] [address] documented as of this encounter Visit Diagnoses Diagnosis Benign essential hypertension Essential hypertension, benign documented in this encounter Additional Health Concerns Assessment Noted Time PHQ-9 Depression Total Score: 19 023 10:41 AM CDT documented as of this encounter Care Teams Chancery Clerk Relationship Specialty Start Date End Date Shankar Peñaloza MD [address] [place] [address] [place] [address] PCP - General Internal Medicine 09/25/13 Navdeep Waldron MD [facility] [address] [place] [address] Physical Medicine & Rehabilitation - Pain Medicine 07/07/13 Shankar Peñaloza MD [address] [place] [address] [place] [address] Assigned PCP 07/22/16 Richardson Alberts PA-C [address] [place] [address] Physician Sheet Manager Gastroenterology 03/01/22 Shankar Peñaloza MD [address] [place] [address] [place] [address] Assigned Pain Medication Provider 06/17/22 Marielena Sunshine PA-C [address] [facility] 377 [place], [place] [address] Physician Sheet Manager Urology 10/03/22 Radha Rivas Personal Advocate & Liaison (PAL) 11/26/22 Marielena Sunshine PA-C [address] [facility] 500 [place], [place] [address] Assigned Surgical Provider 12/07/22 documented as of this encounter
--- OUTSIDE RECORDS SUMMARY | 2023-07-02 14:26 | XMS_ITS | Encounter Summary ---
Author Name Unknown Organization [facility] Address [address] [place] [address]. [place] [address] Care Team Providers Care Perinatal Technician Name Role Phone Navdeep Waldron MD Unavailable [phone] Shankar Peñaloza MD Primary Care Provider [phone] Shankar Peñaloza MD Unavailable [phone] Richardson Alberts PA-C Unavailable [phone] Shankar Peñaloza MD Unavailable [phone] Marielena Sunshine PA-C Unavailable Radha Rivas Unavailable Unavailable Marielena Sunshine PA-C Unavailable [phone] Reason for Visit * Reason Comments Medication Refill Encounter Details Date Type Department Care Team (Late st Contact Info) Description 05/08/2023 Telephone [facility] [address] [place] [address] [place] [address] [place] [address] Medication Refill Social History Tobacco [...] encounter Miscellaneous Notes * Telephone Encounter - Ann Vanessa RN - 05/15/2023 8:24 AM CST MC message has been read by pt. Ann Vanessa RN, BSN [facility] ENGINEERING TECHNICIAN * Telephone Encounter - Ann Vanessa RN - 05/14/2023 5:07 PM CST LMTCB #2, MC sent advising of below from Dr Koko Tracey. Ann Vanessa RN, BSN [facility] [place] ENGINEERING TECHNICIAN * Telephone Encounter - Nory Howard RN - 05/14/2023 10:15 AM HVAC ENGINEERING TECHNICIAN Called and left a message to call us back. ENGINEERING TECHNICIAN * Telephone Encounter - Koko Tracey MD - 05/13/2023 3:53 PM CST Ok, that sounds good. Please ask her if she would like me to send the e-consult to psychiatry as discussed in office lasttime? I know we were going to await gene testing but if cannot find the records, we can still submit without that information. Koko Tracey MD [facility] 05/13/2023 ENGINEERING TECHNICIAN * Telephone Encounter - Ann Vanessa RN - 05/13/2023 10:19 AM CST MC has not been read. Called pt and advised of below from Dr Koko Tracey. Scheduled nurse only BP andlab for 05/27/23. Pt has not been able to find paper copies of gene testing, pt will reach out to testing location [facility]. Pt requested depression follow up appt with Dr Koko Tracey. Scheduled VV on 06/11/22. Pt would also like to discuss meds for hot flashes. Ann Vanessa RN, BSN [facility] [place] ENGINEERING TECHNICIAN * Telephone Encounter - Nory Howard RN - 05/12/2023 4:37 PM HVAC ENGINEERING TECHNICIAN Called and left a message to call us back. Will also send a mychart per below. ENGINEERING TECHNICIAN * Telephone Encounter - Koko Tracey MD - 05/12/2023 2:33 PM CST Can we please try calling patient back (and sending MyChart message if now answer) to let her know that she needs a repeat kidney function test (blood test) after restarting the hydrochlorothiazide? In meantime, ordered one additional 30 day supply to help bridge to lab appointment. Thanks. Koko Tracey MD [facility] [place] 05/12/2023 ENGINEERING TECHNICIAN * Telephone Encounter - Karyn Thapa RN - 05/09/2023 7:48 AM CST Called patient and left voicemail to call back and ask to speak to any triage nurse. Karyn Thapa RN ENGINEERING TECHNICIAN * Telephone Encounter - Koko Tracey MD - 05/09/2023 6:46 AM CST Brief chart review. Overdue for repeat BP and BMP for refill of hydrochlorothiazide. Please help patient set up nurse only appointment, then will refill. Koko Tracey MD [facility] [place] 05/09/2023 ENGINEERING TECHNICIAN documented in this encounter Plan of Treatment Upcoming Encounters Date Type Department Care Team (Late st Contact Info) Description 07/16/2023 3:30 PM HVAC ENGINEERING TECHNICIAN Office Visit [facility] [place] [address] [place] [address] Shankar Peñaloza MD [address] [facility] [place] [id number] 2023 3:00 PM HVAC ENGINEERING TECHNICIAN Virtual Visit [facility] [place] [address] [place] [address] Gerhardsharikris Job, [facility] [address] [place] [address] 08/13/2023 2:30 PM HVAC ENGINEERING TECHNICIAN Office [facility] [address] [place] [address] [place] [address] [place], [place] [phone] documented as of this encounter Visit Diagnoses Diagnosis Benign essential hypertension Essential hypertension, benign documented in this encounter Additional Health Concerns Assessment Noted Time PHQ-9 Depression Total Score: 19 023 10:41 AM CDT documented as of this encounter Care Teams Perinatal Technician Relationship Specialty Start Date End Date Shankar Peñaloza MD [address] [place] [address] [place] [address] PCP - General Internal Medicine 09/25/13 Navdeep Waldron MD [facility] [address] [place] [address] Physical Medicine & Rehabilitation - Pain Medicine 07/07/13 Shankar Peñaloza MD [address] [place] [address] [place] [address] Assigned PCP 07/22/16 Richardson Alberts PA-C [address] [place] [address] Physician Tempering Oven Operator Gastroenterology 03/01/22 Shankar Peñaloza MD [address] [place] [address] [place] [address] Assigned Pain Medication Provider 06/17/22 Marielena Sunshine PA-C [address] [facility] 377 [place] [address] Physician Tempering Oven Operator Urology 10/03/22 Radha Rivas Personal Advocate & Liaison (PAL) 11/26/22 Marielena Sunshine PA-C [address] [facility] 500 [place] [address] Assigned Surgical Provider 12/07/22 documented as of this encounter
--- OUTSIDE RECORDS SUMMARY | 2023-07-02 14:26 | XMS_ITS | Encounter Summary ---
Author Name Unknown Organization [place] Address [address] [place] [address] Care Team Providers Care Heading Repairer Name Role Phone Navdeep Wadlron MD Unavailable [phone] Shankar Peñaloza MD Primary Care Provider [phone] Shankar Peñaloza MD Unavailable [phone] Richardson Alberts PA-C Unavailable [phone] Shankra Peñaloza MD Unavailable [phone] Marielena Sunshine PA-C Unavailable Radha Rivas Unavailable Unavailable Marielena Sunshine PA-C Unavailable Encounter Details Date Type Department Care Team (Late st Contact Info) Description 05/14/2023 [facility] [address] [place] [address] Ann Vanessa, RN Severe episode of recurrent major depressive disorder, 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 Janice Mccallum RN HOST * Telephone Encounter - Lucille Tracey MD - 05/16/2023 11:55 AM CST Ok, submitted e-visit. Please let patient know it can take up to 3 business days for a response. Thanks, Lucille Tracey MD [facility] 05/16/2023 HOST * Telephone Encounter - Ann Vanessa, RN - 05/15/2023 3:28 PM CST Routed to Dr Lucille Tracey, please see and advise. See also 05/08/23 telephone encounter. Ann Vanessa RN, BSN [facility] HOST * Addendum Note - Lucille Tracey MD - 05/14/2023 5:15 PM CSTAddended by: LUCILLE TRACEY on: 05/23/2023 06:20 AM Modules accepted: Orders HOST documented in this encounter Plan of Treatment Upcoming Encounters Date Type Department Care Team (Late st Contact Info) Description 07/16/2023 3:30 PM SHOW HOST Office Visit [address] [place] [address] Shankar Peñ[place] [address] [place] [address] [place] [address] 2023 3:00 PM SHOW HOST Virtual Visit [facility] [address] [place] [address] 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, [address] [address] 08/13/2023 2:30 PM SHOW HOST [facility] [address] [place] [phone] [place] [address] [place], [place] [phone] documented as of this encounter Visit Diagnoses Diagnosis Severe episode of recurrent major depressive disorder, without psychotic features (H)- Primary documented in this encounter Additional Health Concerns Assessment Noted Time PHQ-9 Depression Total Score: 19 023 10:41 AM CDT documented as of this encounter Care Teams Heading Repairer Relationship Specialty Start Date End Date Shankar Peñaloza MD [address] [place] [address] [place] [address] PCP - General Internal Medicine 09/25/13 Navdeep Waldron MD [facility] [address] [place] [address] Physical Medicine & Rehabilitation - Pain Medicine 07/07/13 Shankar Peñaloza MD [address] [place] [address] [place] [address] Assigned PCP 07/22/16 Richardson Alberts PA-C [address] [place] [address] Physician Peoplesoft Taleo Manager Gastroenterology 03/01/22 Shankar Peñaloza MD [address] [place] [address] [place] [address] Assigned Pain Medication Provider 06/17/22 Marielena Sunshine PA-C [address] [facility] 377 [place] [address] Physician Peoplesoft Taleo Manager Urology 10/03/22 Radha Rivas Personal Advocate & Liaison (PAL) 11/26/22 Marielena Sunshine PA-C [address] [place] [address] Assigned Surgical Provider 12/07/22 documented as of this encounter
--- OUTSIDE RECORDS SUMMARY | 2023-07-02 14:26 | XMS_ITS | Encounter Summary ---
Author Name Unknown Organization [place] Address [address] [place] [address] Care Team Providers Care Director Dietetics Department Name Role Phone Navdeep Waldron MD Unavailable [phone] Shankar Peñaloza MD Primary Care Provider Shankar Peñaloza MD Unavailable [phone] Richardson Alberts PA-C Unavailable [phone] Shankar Peñaloza MD Unavailable [phone] Marielena Sunshine PA-C Unavailable [phone] Radha Rivas Unavailable Unavailable Marielena Sunshine PA-C Unavailable 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 METER READER Unavailable Encounter Details Date Type Department Care Team (Late st Contact Info) Description 04/16/2023 Marco Antonio Feliz [facility] [place] [address] [place] [address] Shankar Peñaloza MD [address] [facility] [place] [address] Social History Tobacco Use Types Packs/Day Years [...] st Contact Info) Description 07/16/2023 3:30 PM AIRFRAME TECHNICAL OFFICER Office Visit [facility] Ke[place] [address] [place] [address] Shankar Peñaloza MD [address] [facility] [place] [id number] 2023 3:00 PM AIRFRAME TECHNICAL OFFICER Virtual Visit [facility] [place] [address] [place] [address] 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, [facility] [address] [place] [address] 08/13/2023 2:30 PM AIRFRAME TECHNICAL OFFICER Office Visit [facility] [address] [place] [address] [place] [address] [place] [address] documented as of this encounter Visit Diagnoses Not on filedocumented in this encounter Additional Health Concerns Assessment Noted Time PHQ-9 Depression Total Score: 19 023 10:41 AM CDT documented as of this encounter Care Teams Director Dietetics Department Relationship Specialty Start Date End Date Shankar Peñaloza MD [address] [place] [address] [place] [address] PCP - General Internal Medicine 09/25/13 Navdeep Waldron MD [facility] [address] [place] [address] Physical Medicine & Rehabilitation - Pain Medicine 07/07/13 Shankar Peñaloza MD [address] [place] [address] [place] [address] Assigned PCP 07/22/16 Richardson Alberts PA-C [address] [place] [address] Physician Liquor Commissioner Gastroenterology 03/01/22 Shankar Peñaloza MD [address] [place] [address] Assigned Pain Medication Provider 06/17/22 Marielena Sunshine PA-C [address] [facility] 377 [place] [address] Physician Liquor Commissioner Urology 10/03/22 Radha Rivas Personal Advocate & Liaison (PAL) 11/26/22 Marielena Sunshine PA-C [address] [facility] 500 [place] [address] Assigned Surgical Provider 12/07/22 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 LICSW [address] [address] Real Estate Rep Real Estate Rep - Clinical 06/23/23 documented as of this encounter
--- OUTSIDE RECORDS SUMMARY | 2023-07-02 14:26 | XMS_ITS | Encounter Summary ---
Author Name Unknown Organization [place] Address [address] [place] [address] Care Team Providers Care Latex Fashions Designer Name Role Phone Navdeep Waldron MD Unavailable [phone]- [phone] Shankar Peñaloza MD Primary Care Provider [phone] Shankar Peñaloza MD Unavailable [phone] Richardson Alberts PA-C Unavailable [phone] Shankar Peñaloza MD Unavailable [phone] Marielena Sunshine PA-C Unavailable [phone] Radha Rivas Unavailable Unavailable Marielena Sunshine PA-C Unavailable Encounter Details Date Type Department Care Team (Latest Contact Info) Description 04/11/2023 Travel Social History Tobacco Use Types Packs/Day [...] st Contact Info) Description 07/16/2023 3:30 PM PROFESSIONAL BASS FISHER [facility] [address] [place] [phone] Shankar Peñaloza MD [address] [place] [address] [place] [address] 2023 3:00 PM PROFESSIONAL BASS FISHER Virtual Visit [facility] [address] [place] [address] 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, [place] [address] [place] [address] 08/13/2023 2:30 PM PROFESSIONAL BASS FISHER Office Visit [facility] [address] [place] [address] [place] [address] [place] [address] documented as of this encounter Visit Diagnoses Not on filedocumented in this encounter Additional Health Concerns Assessment Noted Time PHQ-9 Depression Total Score: 19 023 10:41 AM CDT documented as of this encounter Care Teams Latex Fashions Designer Relationship Specialty Start Date End Date Shankar Peñaloza MD [address] [place] [address] [place] [address] PCP - General Internal Medicine 09/25/13 Navdeep Waldron MD [facility] [address] [place] [address] Physical Medicine & Rehabilitation - Pain Medicine 07/07/13 Shankar Peñaloza MD [address] [place] [address] [place] [address] Assigned PCP 07/22/16 Richardson Alberts PA-C [address] [place] [address] Physician Brand Development Manager Gastroenterology 03/01/22 Shankar Peñaloza MD [address] [place] [address] [place] [address] Assigned Pain Medication Provider 06/17/22 Marielena Sunshine PA-C [address] [facility] [address] [place] [address] Physician Brand Development Manager Urology 10/03/22 Radha Rivas Personal Advocate & Liaison (PAL) 11/26/22 Marielena Sunshine PA-C [address] [place] [address] Assigned Surgical Provider 12/07/22 documented as of this encounter
--- OUTSIDE RECORDS SUMMARY | 2023-07-02 14:26 | XMS_ITS | Encounter Summary ---
Author Name Unknown Organization [place] Address [address] [place] [address] Care Team Providers Care Electrophysiology Scientist Name Role Phone Navdeep Waldron MD Unavailable [phone] Shankar Peñaloza MD Primary Care Provider Shankar Peñaloza MD Unavailable [phone] Ricahrdson Alberts PA-C Unavailable [phone] Shankar Peñaloza MD Unavailable [phone] Marielena Sunshine PA-C Unavailable Radha Rivas Unavailable Unavailable Marielena Sunshine PA-C Unavailable Encounter Details Date Type Department Care Team (Late st Contact Info) Description 05/12/2023 [facility] [address] [place] [address] Nory Howard, RN Social History Tobacco Use Types Packs/Day Years [...] st Contact Info) Description 07/16/2023 3:30 PM HAND I BLOCKER Office Visit [facility] [place] [address] [place] [address] Shankar Peñaloza MD [address] [facility] [place] [address] 2023 3:00 PM HAND I BLOCKER Virtual Visit [facility] [address] [place] [phone] 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, VEST FINISHER [address] [place] [address] 08/13/2023 2:30 PM HAND I BLOCKER Office Visit [facility] [address] [place] [phone] [place] [address] [place] [address] documented as of this encounter Visit Diagnoses Not on filedocumented in this encounter Additional Health Concerns Assessment Noted Time PHQ-9 Depression Total Score: 19 023 10:41 AM CDT documented as of this encounter Care Teams Electrophysiology Scientist Relationship Specialty Start Date End Date Shankar Peñaloza MD [address] [place] [address] [place] [address] PCP - General Internal Medicine 09/25/13 Navdeep Waldron MD [facility] [address] [place] [address] Physical Medicine & Rehabilitation - Pain Medicine 07/07/13 Shankar Peñaloza MD [address] [place] [address] [place] [address] Assigned PCP 07/22/16 Richardson Alberts PA-C [address] [facility] [place] [address] Physician Undertaker Assistant Gastroenterology 03/01/22 Shankar Peñaloza MD [address] [place] [address] [place] [address] Assigned Pain Medication Provider 06/17/22 Marielena Sunshine PA-C [address] [facility] [address] [place], [place] [address] Physician Undertaker Assistant Urology 10/03/22 Radha Rivas Personal Advocate & Liaison (PAL) 11/26/22 Marielena Sunshine PA-C [address] [facility] 500 [place] [address] Assigned Surgical Provider 12/07/22 documented as of this encounter
--- OUTSIDE RECORDS SUMMARY | 2023-07-02 14:26 | XMS_ITS | Encounter Summary ---
Author Name Unknown Organization [place] Address [address] [place] [address] Care Team Providers Care Linoleum Printer Name Role Phone Navdeep Waldron MD Unavailable [phone]- [phone] Shankar Peñaloza MD Primary Care Provider [phone] Shankar Peñaloza MD Unavailable [phone] Richardson Alberts PA-C Unavailable [phone] Shankar Peñaloza MD Unavailable [phone] Marielena Sunshine PA-C Unavailable [phone] Radha Rivas Unavailable Unavailable Marielena Sunshine PA-C Unavailable Encounter Details Date Type Department Care Team (Latest Contact Info) Description 04/09/2023 Travel Social History Tobacco Use Types Packs/Day [...] AM CDT documented as of this encounter Plan of Treatment Upcoming Encounters Date Type Department Care Team (Late st Contact Info) Description 07/16/2023 3:30 PM AUTOMATIC MAINTAINER Office [facility] [place] [address] [place] [address] Shankar Peñaloza MD [address] [facility] [place] [phone] 2023 3:00 PM AUTOMATIC MAINTAINER Virtual Visit [facility] [address] [place] [address] 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, SAP PORTAL DEVELOPER [address] [place], [place] [id number] 08/13/2023 2:30 PM AUTOMATIC MAINTAINER Office Visit [facility] [address] [place] [phone] [place] [address] [place], [place] [phone] documented as of this encounter Visit Diagnoses Not on filedocumented in this encounter Additional Health Concerns Assessment Noted Time PHQ-9 Depression Total Score: 19 023 10:41 AM CDT documented as of this encounter Care Teams Linoleum Printer Relationship Specialty Start Date End Date Shankar Peñaloza MD [address] [place] [address] [place] [address] PCP - General Internal Medicine 09/25/13 Navdeep Waldron MD [facility] [address] [place] [address] Physical Medicine & Rehabilitation - Pain Medicine 07/07/13 Shankar Peñaloza MD [address] [place] [address] [place] [address] Assigned PCP 07/22/16 Richardson Alberts PA-C [address] [place] [address] Physician Drug And Alcohol Counsellor Gastroenterology 03/01/22 Shankar Peñaloza MD [address] [place] [address] [place] [address] Assigned Pain Medication Provider 06/17/22 Marielena Sunshine PA-C [address] [place] [address] Physician Drug And Alcohol Counsellor Urology 10/03/22 Radha Rivas Personal Advocate & Liaison (PAL) 11/26/22 Marielena Sunshine PA-C [address] [facility] 500 [place], [place] [address] Assigned Surgical Provider 12/07/22 documented as of this encounter
--- OUTSIDE RECORDS SUMMARY | 2023-07-02 14:27 | XMS_ITS | Encounter Summary ---
Author Name Unknown Organization [place] Address [address] [place] [address]. [place] [address] Care Team Providers Care Business Control Manager Name Role Phone Navdeep Waldron MD Unavailable [phone] Shankar Peñaloza MD Primary Care Provider Shankar Peñaloza MD Unavailable [phone] Richardson Alberts PA-C Unavailable [phone] Shankar Peñaloza MD Unavailable [phone] Marielena Sunshine PA-C Unavailable Radha Rivas Unavailable Unavailable Marielena Sunshine PA-C Unavailable Reason for Visit * Reason Comments Follow Up Encounter Details Date Type Department Care Team (Late st Contact Info) Description 04/09/2023 11:30 AM CDT Office Visit [facility] [address] [place] [address] [place] [address] [place] [address] Severe episode of recurrent major depressive disorder, without psychotic features (H) (Primary Dx); Serotonin syndrome; Bacterial sinusitis; Benign essential hypertension Social History Tobacco Use [...] AM CDT documented as of this encounter Last Filed Vital Signs Vital Sign Reading Time Taken Comments Blood Pressure 145/92 04/09/2023 11:25 AM CDT Pulse 97 04/09/2023 11:25 AM CDT Temperature 37.2 ??C (98.9 ??F) 04/09/2023 11:25 AM C DT Respiratory Rate 11 04/09/2023 11:25 AM CDT Oxygen Saturation 98% 04/09/2023 11:25 AM CDT Inhaled Oxygen Concentration - - Weight 84.8 kg (187 lb) 04/09/2023 11:25 AM CDT Height 170.2 cm (5' 7) 04/09/2023 11:25 AM CDT Body Mass Index 29.29 04/09/2023 11:25 AM CDT documented in this encounter Progress Notes * Koko Tracey MD - 04/09/2023 11:30 AM CDT Assessment & Plan Severe episode of recurrent major depressive disorder, without psychotic features (H) Serotonin syndrome Trial of citalopram caused significant side effects and concern for serotonin syndrome however was not evaluated in ED so is currently unknown. (Patient denies that this felt similar to prior serotonin syndrome diagnosis though). Has tried various different medications that were either ineffective or caused significant side effects. Does have upcoming visit with psychiatry in 06/2023 but patient is agreeable to e-consult in order to help bridge until that time. Will await until patient has gene testing results which she will upload through [employer]. To be copy/pasted into E-consult: 57 year old F with lifelong hx of MDD/CHAD and has been on multiple medications (see last paragraph for list) for mood with significant side effects including hx of serotonin syndrome while on max dose of sertraline (300mg) along with simultaneous prescription of tramadol and bupropion. - However on last recent trial of low dose citalopram, did experience constant nausea, sweating, tremors. This was discontinued in 03/2023 due to concern for developing serotonin syndrome but patientdoes not feel this was consistent with prior experience of serotonin syndrome. 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 - She notes out of all medications, she has not had any side effects from prozac, zoloft and wellbutrin. Is willing to retry these medications. - She is NOT willing to sacrifice her sleep and does NOT want antipsychotics. - Has had prior gene testing completed, is to upload results via [employer] My specific question is if it is reasonable to restart Prozac or Zoloft at low dose with hx of serotonin syndrome? Or if there is any other medication you would recommend to start until she is able to establish with psychiatry. Medications Tried in Past: Brief excerpt from hospitalization in 2009 which is addended to reflect all medications tried: Cathyhas been on Prozac, Paxil, Zoloft, Celexa. She has been on Remeron, not Effexor but Cymbalta, not Pristiq. She has been on Wellbutrin. She has been on Lamictal, lithium, Elavil, states she has been on Seroquel. She has not been on Geodon, Abilify, Risperdal or Zyprexa. Says that she has not been onXanax, Klonopin. She has been on Ativan. She has been on BuSpar. She has taken Ambien but not Lunesta, Rozerem. She has had trazodone. Bacterial sinusitis - amoxicillin (AMOXIL) 875 MG tablet Dispense: 14 tablet; Refill: 0 Benign essential hypertension Plan to restart hydrochlorothiazide and follow up in 2 weeks for nurse only visit with BP and repeat BMP - hydrochlorothiazide (HYDRODIURIL) 12.5 MG tablet Dispense: 30 tablet; Refill: 0 Follow up in 2 weeks for repeat BP/BMP Koko Tracey MD [facility] 04/10/2023 Subjective Genevieve is a 57 year old, presenting for the following health issues: Follow Up 04/09/2023 11:09 AM Additional Questions Roomed by Suzi Yao VF Would like to discuss other options to help mental health. Says celexa made it worse and stopped taking it about a week ago. Believes she has a sinus infection, has been at its worst the past 3 days. History of Present Illness Mental Health Follow-up: Patient presents to follow-up on Depression & Anxiety.Patient's depression since last visit has been: Worse The patient is having other symptoms associated with depression. Patient's [...] enough effort to increase her heart rate 30 to 60 minutes per day. She exercises with enough effort to increase her heart rate 3 or less days per week. She is taking medications regularly. Sinus symptoms Started about 9-10 days ago. Now getting ALBERT starting for the past 3 days in addition. Pressure in the sinuses on both sides. Pressure with bending over. Wants to squeeze face to help soften the pressure. No nasal drainage, feels like nasal congestion but nothing coming out. Seems to be worsening with time. Struggles with sinus issues yearly and needs abx to clear it out. Mood Stopped the citalopram immediately. Knew that she wasn't having serotonin syndrome. Was an absolute mess though. Took about 2 days after stopping before symptoms were finally improving significantly. Resolved in a total of about 3 days. Tried seroquel in the past - during hospital stay. Not quite sure why this was stopped. Maybe made her drowsy. Has zero tolerance for that symptom because it just worsens her depression. Out of all medications, seems that zoloft, wellbutrin and prozac do not give her side effects Had gene testing for medications at home, will look to see if she can find this. Was seeing psychiatrist in the past. HTN Doesn't remember ever being diagnosed with HTN in the past Has been on clonidine for hot flashes but finally stopped this a little over one week ago as it wasnot helping anyways. Has been on hydrochlorothiazide in the past for swelling and tolerated well. Objective BP (!) 145/92 (BP Location: Right arm, Patient Position: Sitting, Cuff Size: Adult Large) Pulse 97 Temp 98.9 ??F (37.2 ??C) (Oral) Resp 11 Ht 1.702 m (5' 7) Wt 84.8 kg (187 lb) SpO2 98% BMI 29.29 kg/m?? Body mass index is 29.29 kg/m??. Physical Exam GENERAL: healthy, alert and no distress HEAD: Normocephalic, atraumatic. EYES: PERRL. Normal conjunctivae, sclera. Pressure with palpation over R, L maxillary sinuses. ENT: Normal EAC and TMs bilaterally. R nare with nasal polyp present. Otherwise mildly erythematousturbinates bilaterally. Normal oropharynx. NECK: Supple. No lymphadenopathy appreciated. Trachea midline. Thyroid not enlarged, not TTP. RESP: lungs clear to auscultation - no rales, rhonchi or wheezes CV: regular rate and rhythm, normal S1 S2, no murmur, click, rub or gallop. No carotid bruits. No peripheral swelling noted. ABDOMEN: soft, no TTP x4 quadrants. No hepatomegaly or masses appreciated. BS normactive. MSK: no gross musculoskeletal defects noted. SKIN: no suspicious lesions or rashes. EXT: Warm and well perfused. NEURO: CNII-XII grossly intact. No focal deficits. PSYCH: Groomed, dressed appropriately for weather. Mood described as anxious with normal affect. documented in this encounter Plan of Treatment Upcoming Encounters Date Type Department Care Team (Late st Contact Info) Description 07/16/2023 3:30 PM STUDIO MUSICIAN Office Visit [address] [place] [address] Shankar Peñaloza MD [address] [place] [address] [place] [address] 2023 3:00 PM STUDIO MUSICIAN Virtual Visit [facility] [address] [place] [address] 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, [address] [address] 08/13/2023 2:30 PM STUDIO MUSICIAN Office Visit [facility] [address] [place] [phone] [place]acey [place] [address] [place] [address] [phone] documented as of this encounter Results * (ABNORMAL) Basic metabolic panel (Ca, Cl, CO2, Creat, Gluc, K, Na, BUN) (05/27/2023 1:32 PM STUDIO MUSICIAN) Sodium 138 135 - 145 mmol/L 05/27/2023 9:12 PM STUDIO MUSICIAN [facility] Comment:Reference intervals for this test were updated on 03/04/2023 to more accurately reflect our healthy population. There may be differences in the flagging of prior results with similar values performed with this method. Interpretation of those prior results can be made in the context of the updated reference intervals. Potassium 3.9 3.4 - 5.3 mmol/L 05/27/2023 9:12 PM STUDIO MUSICIAN [facility] Chloride 102 98 - 107 mmol/L 05/27/2023 9:12 PM STUDIO MUSICIAN [facility] Carbon Dioxide (CO2) 27 22 - 29 mmol/L 05/27/2023 9:12 PM STUDIO MUSICIAN [facility] Anion Gap 9 7 - 15 mmol/L 05/27/2023 9:12 PM STUDIO MUSICIAN [facility] Urea Nitrogen 23.9(H) 6.0 - 20.0 mg/dL 05/27/2023 9:12 PM STUDIO MUSICIAN [facility] Creatinine 0.87 0.51 - 0.95 mg/dL 05/27/2023 9:12 PM STUDIO MUSICIAN [facility] GFR Estimate 78 >60 mL/min/1. 73m2 05/27/2023 9:12 PM STUDIO MUSICIAN [facility] Calcium 9.4 8.6 - 10.0 mg/dL 05/27/2023 9:12 PM STUDIO MUSICIAN [facility] Glucose 101(H) 70 - 99 mg/dL 05/27/2023 9:12 PM STUDIO MUSICIAN [facility] Blood BLOOD SPECIMEN / Unknown Venipuncture / Unknown 05/27/2023 1:32 PM STUDIO MUSICIAN 05/27/2023 1:32 PM STUDIO MUSICIAN Koko Tracey MD LAB - BLOOD ORDERABL ES [facility] [place] [facility] [address] [facility], [address] [place] [address], [facility] [phone] documented in this encounter Visit Diagnoses Diagnosis Severe episode of recurrent major depressive disorder, without psychotic features (H)- Primary Serotonin syndrome Other extrapyramidal disease and abnormal movement disorder Bacterial sinusitis Unspecified sinusitis (chronic) Benign essential hypertension Essential hypertension, benign documented in this encounter Additional Health Concerns Assessment Noted Time PHQ-9 Depression Total Score: 19 023 10:41 AM CDT documented as of this encounter Care Teams Business Control Manager Relationship Specialty Start Date End Date Shankar Peñaloza MD [address] [place] [address] [place] [address] PCP - General Internal Medicine 09/25/13 Navdeep Waldron MD [facility] [address] [place] [address] Physical Medicine & Rehabilitation - Pain Medicine 07/07/13 Shankar Peñaloza MD [address] [place] [address] [place] [address] Assigned PCP 07/22/16 Richardson Alberts PA-C [address] [place] [address] Physician Development Spec Gastroenterology 03/01/22 Shankar Peñaloza MD [address] [place] [address] [place] [address] Assigned Pain Medication Provider 06/17/22 Marielena Sunshine PA-C [address] [address] Physician Development Spec Urology 10/03/22 Radha Rivas Personal Advocate & Liaison (PAL) 11/26/22 Marielena Sunshine PA-C [address] [place] [address] Assigned Surgical Provider 12/07/22 documented as of this encounter
--- OUTSIDE RECORDS SUMMARY | 2023-07-02 14:27 | XMS_ITS | Encounter Summary ---
Author Name Unknown Organization [place] Address [address] [place] [address]. [place] [address] Care Team Providers Care Heater Helper Name Role Phone Navdeep Waldron MD Unavailable [phone] Shankar Peñaloza MD Primary Care Provider [phone] Shankar Peñaloza MD Unavailable [phone] Richardson Alberts PA-C Unavailable [phone] Shankar Peñaloza MD Unavailable [phone] Marielena Sunshine PA-C Unavailable Radha Rivas Unavailable Unavailable Marielena Sunshine PA-C Unavailable Reason for Visit * Reason Comments Medication Refill Encounter Details Date Type Department Care Team (Late st Contact Info) Description 03/21/2023 Refill [facility] [address] [place] [phone] [place] [address] [place], [place] [id number] Medication Refill Social History Tobacco Use Types [...] st Contact Info) Description 07/16/2023 3:30 PM FARMWORKER CRANBERRY Office Visit [facility] [place] [address] [place] [address] [address] [place] [address] Shankar Peñaloza MD [address] [place] [address] [place] [address] 2023 3:00 PM FARMWORKER CRANBERRY Virtual Visit [facility] [address] [place] [address] 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, [facility] [address] [place] [address] 08/13/2023 2:30 PM FARMWORKER CRANBERRY Office Visit 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's esophagus documented in this encounter Additional Health Concerns Assessment Noted Time PHQ-9 Depression Total Score: 19 023 10:41 AM CDT documented as of this encounter Care Teams Heater Helper Relationship Specialty Start Date End Date Shankar Peñaloza MD [address] [place] [address] [place] [address] PCP - General Internal Medicine 09/25/13 Navdeep [facility]ron MD [facility] [address] [place] [address] Physical Medicine & Rehabilitation - Pain Medicine 07/07/13 Shankar Peñaloza MD [address] [place] [address] [place] [address] Assigned PCP 07/22/16 Richardson Alberts PA-C [address] [place] [address] Physician Tool Grinding Machine Operator Gastroenterology 03/01/22 Shankar Peñaloza MD [address] [facility] [place] [address] Assigned Pain Medication Provider 06/17/22 Marielena Sunshine PA-C [address] [facility] [facility] [address] [place] [address] Physician Tool Grinding Machine Operator Urology 10/03/22 Radha Rivas Personal Advocate & Liaison (PAL) 11/26/22 Marielena Sunshine PA-C [address] [facility] [address] [place], [place] [address] Assigned Surgical Provider 12/07/22 documented as of this encounter
--- OUTSIDE RECORDS SUMMARY | 2023-07-02 14:27 | XMS_ITS | Encounter Summary ---
Author Name Unknown Organization [facility] Address [address] [place] [address] Care Team Providers Care Clinical Microbiologist Name Role Phone Navdeep Waldron MD Unavailable [phone] Shankar Peñaloza MD Primary Care Provider Shankar Peñaloza MD Unavailable [phone] Richardson Alberts PA-C Unavailable [phone] Shankar Peñaloza MD Unavailable [phone] Marielena Sunshine PA-C Unavailable [phone] Radha Rivas Unavailable Unavailable Marielena Sunshine PA-C Unavailable Reason for Referral * Diagnostic Procedure Outpatient (Routine: Next available opening) - Referral NOT Required Specialty Diagnoses / Procedures Referred By Arlet felton Referred To Contact Gastroenterology Diagnoses Abdominal pain, epigastric 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 [address] [place] [address] [address] Referral ID Status Reason Start Date Expiration Date V isits Requested Visits Authorized Referral NOT Required 01/21/2023 01/21/2024 1 1 Question Answer Service: Upper Endoscopy Upper Endoscopy Type: EGD Sedation Concerns: Chronic or scheduled pain/narcotic medication use Sedation Type: Deep/MAC Sedation Reason for Upper Endoscopy: Barretts Esophagus, worsening abdominal pain and bloating Preferred Location: [facility] Scheduling Instructions: [facility] will call you to coordinate your care as prescribed by the provider. If you don? t hear from a inbound call center representative within 2 business days, please call . Comments Please be aware that coverage of these services is subject to the terms and limitations of your health insurance plan. Call member services at your health plan with any benefit or coverage questions. [facility] will call you to coordinate your care as prescribed by the provider. If you don? t hear from a inbound call center representative within 2 business days, please call . 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; Dizziness; Palpitations; Abnormal finding of blood chemistry, unspecified; Antiphospholipid syndrome (H) Social History Tobacco Use Types Packs/Day Years Used Date Smoking Tobacco: Former Cigarettes Q uit: 02/12/2021 Smokeless Tobacco: Never Alcohol Use Standard Drinks/Week Comments No 0 (1 standard drink = 0.6 oz pur e alcohol) PHQ-2 Answer Date Recorded PHQ-2 Score 6 01/21/2023 Sex and Gender Information Value Date Recorded Sex Assigned at Not on file Gender Identity Not on file Sexual Orientation Not on file COVID-19 Exposure Response Date Recorded In the last 10 days, have yo u been in contact with someone who was confirmed or suspected to have Coronavirus/COVID-19? No / Unsure 01/21/2023 4:02 PM CDT documented as of this encounter Last Filed Vital Signs Vital Sign Reading Time Taken Comments Blood Pressure 141/88 01/21/2023 4:01 PM CDT Pulse 75 01/21/2023 3:55 PM CDT Temperature 36.9 ??C (98.4 ??F) 01/21/2023 3:55 PM CD T Respiratory Rate 16 01/21/2023 3:55 PM CDT Oxygen Saturation 98% 01/21/2023 3:55 PM CDT Inhaled Oxygen Concentration - - Weight 82.6 kg (182 lb) 01/21/2023 3:55 PM CDT Height 170.2 cm (5' 7) 01/21/2023 3:55 PM CDT Body Mass Index 28.51 01/21/2023 3:55 PM CDT documented in this encounter Progress Notes * Coming Iva Flannery MD - 01/21/2023 4:00 PM CDT Assessment & Plan Abdominal pain, epigastric Given history will refer for Upper endoscopy. 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 Upper GI. - pantoprazole (PROTONIX) 40 MG EC tablet; Take 1 tablet (40 mg) by mouth daily - Adult GI Entertainment Lawyer Referral - Procedure Only; Future Dizziness Start workup with labs and EKG - Magnesium - TSH with free T4 reflex - CBC with platelets and differential - Vitamin B12 - Hemoglobin A1c - Comprehensive metabolic panel (BMP + Alb, Alk Phos, ALT, AST, Total. Bili, TP) Palpitations As above - Magnesium; Future - TSH with free T4 reflex; Future - CBC with platelets and differential; Future - Vitamin B12; Future - Hemoglobin A1c; Future - Comprehensive metabolic panel (BMP + Alb, Alk Phos, ALT, AST, Total. Bili, TP); Future - EKG 12-lead complete w/read - Clinics Abnormal finding of blood chemistry, unspecified - Hemoglobin A1c Antiphospholipid syndrome (H) Needs labs - Factor 10 chromogenic 33 minutes spent by me on the date of the encounter doing chart review, history and exam, documentation and further activities per the note Depression Screening Follow Up 01/21/2023 3:44 PM PHQ PHQ-9 Total Score 17 Q9: Thoughts of better off /self-harm past 2 weeks More than half the days F/U: Thoughts of suicide or self-harm No F/U: Safety concerns No Follow Up Follow Up Actions Taken Crisis resource information provided in the After Visit Summary See Patient Instructions Iva Flannery MD [facility] NIESHA Vallejo is a 57 year old, presenting for the following health issues: Headache and Abdominal Pain (Jama's esophagus flare up- thinks it could be caused from omprazole) 01/21/2023 3:52 PM Additional Questions Roomed by Tri Mello History of Present Illness Reason for visit: Stomach pain She eats 0-1 servings of fruits and vegetables daily.She consumes 1 sweetened beverage(s) daily.Sheexercises with enough effort to increase her heart rate 9 or less minutes per day. She exercises with enough effort to increase her heart rate 3 or less days per week. She is taking medications regularly. Pain History: When did you first notice your pain? On and off for two years but most recently the last month Have you seen anyone else for your pain? Yes - in the past she saw the Gastro doctor How has your pain affected your ability to work? Yes ad gets worse throughout the day Where in your body do you have pain? stomach GERD/Heartburn Onset/Duration: Jama's esophagus- two years Description: Intensity: severe Progression of Symptoms: worsening Accompanying Signs & Symptoms: Does it feel like food gets stuck or trouble swallowing: YES Nausea: YES Vomiting (bloody?): No Abdominal Pain: YES Black-Tarry stools: No Bloody stools: No History: Previous similar episodes: YES Previous ulcers: YES- has had 2 but more than 30 years ago Precipitating factors: Caffeine use: YES Alcohol use: No NSAID/Aspirin use: No Tobacco use: No Worse with no particular food or drink. Alleviating factors: None Therapies tried and outcome: Lifestyle changes: None Medications: Omeprazole (Prilosec), Prevacid, and medication not helpful Headache Onset: about a month Description: Location: all over both sides Character: throbbing pain, radiating Frequency: every day, but hasn't had any these last few days Duration: the day Intensity: severe Progression of Symptoms: same Accompanying Signs & Symptoms: Stiff neck: YES- but not unusual Neck or upper back pain: YES- not unusual Fever: YES- normal is about 96 low grade temperature Sinus pressure: YES Nausea or vomiting: YES Dizziness: YES Numbness: no Weakness: YES Visual changes: YES History: Head trauma: no Family history of migraines: no Previous tests for headaches: YES Neurologist evaluations: YES- years ago Able to do daily activities: no Wake with a headaches: YES Do headaches wake you up: YES Daily pain medication use: YES Work/school stressors/changes: no Precipitating factors: Does light make it worse: no Does sound make it worse: no Alleviating factors: Does sleep help: no Therapies Tried and outcome: Ibuprofen (Advil, Motrin) Two years ago diagnosed with Barretts esophagus, put on PPI. Feels bloated when she wakes up, everytime she eats her stomach feels bigger. She is miserable, sitting hurts, went away for a short time, not sure why because nothing changed. Returned about 4 weeks ago. Having dizzy spells, palpitations, nauseated, feels like she is going to pass out. She is supposed to take Omeprazole BID, but only takes once daily. Last week she decided to take the Omeprazole BID,and she felt terrible. She had a terrible headache also, used ibuprofen, nothing worked. Up until Friday, she was taking her omeprazole once daily. She stopped taking Omeprazole. Today shetook prevacid and two tums, not doing anything. Bowels have not been normal. Has had loose stools for the last couple days. Does use Fentanyl and Hydromorphone, takes senna and fiber. Feels like she is excessively sweating outside of menopause symptoms, which she has dealt with for the last 9 years or so. Takes Clonidine for this. Review of Systems Neurological: Positive for headaches. CONSTITUTIONAL: NEGATIVE for fever, chills, change in weight INTEGUMENTARY/SKIN: NEGATIVE for worrisome rashes, moles or lesions EYES: NEGATIVE for vision changes or irritation ENT/MOUTH: NEGATIVE for ear, mouth and throat problems RESP: NEGATIVE for significant cough or SOB BREAST: NEGATIVE for masses, tenderness or discharge CV: NEGATIVE for chest pain, palpitations or peripheral edema GI: NEGATIVE for nausea, abdominal pain, heartburn, or change in bowel habits : NEGATIVE for frequency, dysuria, or hematuria MUSCULOSKELETAL: NEGATIVE for significant arthralgias or myalgia NEURO: NEGATIVE for weakness, dizziness or paresthesias ENDOCRINE: NEGATIVE for temperature intolerance, skin/hair changes HEME: NEGATIVE for bleeding problems PSYCHIATRIC: NEGATIVE for changes in mood or affect Objective BP (!) 141/88 (BP Location: Right arm, Patient Position: Sitting, Cuff Size: Adult Regular) Pulse75 Temp 98.4 ??F (36.9 ??C) (Oral) Resp 16 Ht 1.702 m (5' 7) Wt 82.6 kg (182 lb) SpO2 98% BMI 28.51 kg/m?? Body mass index is 28.51 kg/m??. Physical Exam GENERAL: healthy, alert and no distress RESP: lungs clear to auscultation - no rales, rhonchi or wheezes CV: regular rates and rhythm ABDOMEN: soft, nontender, no hepatosplenomegaly, no masses and bowel sounds normal PSYCH: mentation appears normal, affect normal/bright Labs reviewed in chart documented in this encounter Plan of Treatment Upcoming Encounters Date Type Department Care Team (Late st Contact Info) Description 07/16/2023 3:30 PM TAXI CAB DRIVER Office Visit [place] [id number] [facility] [address] [place] [phone] Shankar Peñaloza MD [address] [facility] [place] [address] 2023 3:00 PM TAXI CAB DRIVER Virtual Visit [facility] [address] [place] [address] 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, [address] [address] 08/13/2023 2:30 PM TAXI CAB DRIVER Office Visit [facility] [id number] [place] [phone] [place] [address] [place] [address] Scheduled Referrals Name Type Priority Associated Diagnoses Orde r Schedule Adult GI Entertainment Lawyer Referral - Procedure Only Referral Routine: Next available opening Abdominal pain, epigastric 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 Expected: 01/21/2023 (Approximate), Expires: 01/22/2024 documented as of this encounter Procedures Procedure Name Priority Date/Time Associated Diagnosis Comments CBC WITH PLATELETS AND DIFFERENTIAL Routine 01/21/2023 5:21 PM CDT Dizziness Palpitations CBC WITH PLATELETS & DIFFERENTIAL Routine 01/21/2023 5:21 PM CDT Dizziness Palpitations TSH WITH FREE T4 REFLEX Routine 01/21/2023 5:21 PM CDT Dizziness Palpitations MAGNESIUM Routine 01/21/2023 5:21 PM CDT Dizziness Palpitations COMPREHENSIVE METABOLIC PANEL Routine 01/21/2023 5:21 PM CDT Dizziness Palpitations VITAMIN B12 Routine 01/21/2023 5:21 PM CDT Dizziness Palpitations HEMOGLOBIN A1C Routine 01/21/2023 5:09 PM CDT Dizziness Palpitations Abnormal finding of blood chemistry, unspecified FACTOR 10 CHROMOGENIC Routine 01/21/2023 5:09 PM CDT Antiphospholipid syndrome (H) EKG 12-LEAD COMPLETE W/READ - CLINICS Routine 01/21/2023 4:57 PM CDT Dizziness Palpitations documented in this encounter Results * CBC with platelets and differential (01/21/2023 5:21 PM CDT) WBC Count 6.1 4.0 - 11.0 10e3/uL 01/21/2023 5:23 PM CDT [facility] RBC Count 4.82 3.80 - 5.20 10e6/uL 01/21/2023 5:23 PM CDT [facility] Hemoglobin 14.0 11.7 - 15.7 g/dL 01/21/2023 5:23 PM CDT [facility] Hematocrit 42.3 35.0 - 47.0 % 01/21/2023 5:23 PM CDT [facility] MCV 88 78 - 100 fL 01/21/2023 5:23 PM CDT [facility] MCH 29.0 26.5 - 33.0 pg 01/21/2023 5:23 PM CDT [facility] MCHC 33.1 31.5 - 36.5 g/dL 01/21/2023 5:23 PM CDT [facility] RDW 12.2 10.0 - 15.0 % 01/21/2023 5:23 PM CDT [facility] Platelet Count 223 150 - 450 10e3/uL 01/21/2023 5:23 PM CDT [facility] % Neutrophils 63 % 01/21/2023 5:23 PM CDT [facility] % Lymphocytes 27 % 01/21/2023 5:23 PM CDT [facility] % Monocytes 6 % 01/21/2023 5:23 PM CDT [facility] % Eosinophils 4 % 01/21/2023 5:23 PM CDT [facility] % Basophils 1 % 01/21/2023 5:23 PM CDT [facility] % Immature Granulocytes 0 % 01/21/2023 5:23 PM CDT [facility] Absolute Neutrophils 3.9 1.6 - 8.3 10e3/uL 01/21/2023 5:23 PM CDT [facility] Absolute Lymphocytes 1.6 0.8 - 5.3 10e3/uL 01/21/2023 5:23 PM CDT [facility] Absolute Monocytes 0.4 0.0 - 1.3 10e3/uL 01/21/2023 5:23 PM CDT [facility] Absolute Eosinophils 0.2 0.0 - 0.7 10e3/uL 01/21/2023 5:23 PM CDT [facility] Absolute Basophils 0.0 0.0 - 0.2 10e3/uL 01/21/2023 5:23 PM CDT [facility] Absolute Immature Granulocytes 0.0 <=0.4 10e3/uL 01/21/2023 5:23 PM CDT [facility] Blood BLOOD SPECIMEN / Unknown Venipuncture / Unknown 01/21/2023 5:21 PM CDT 01/21/2023 5:21 PM CDT September Shana Flannery MD LAB - BLOOD ORDERABLES [facility] [address] [facility] Lab (no room number, 1st floor of clinic) [place] [address], [facility] [phone] * (ABNORMAL) Comprehensive metabolic panel (BMP + Alb, Alk Phos, ALT, AST, Total. Bili, TP) (01/21/2023 5:21 PM CDT) Sodium 141 136 - 145 mmol/L 01/22/2023 5:33 PM CDT [facility] Potassium 4.4 3.4 - 5.3 mmol/L 01/22/2023 5:33 PM CDT [facility] Chloride 104 98 - 107 mmol/L 01/22/2023 5:33 PM CDT [facility] Carbon Dioxide (CO2) 27 22 - 29 mmol/L 01/22/2023 5:33 PM CDT [facility] Anion Gap 10 7 - 15 mmol/L 01/22/2023 5:33 PM CDT [facility] Urea Nitrogen 15.0 6.0 - 20.0 mg/dL 01/22/2023 5:33 PM CDT [facility] Creatinine 0.96(H) 0.51 - 0.95 mg/dL 01/22/2023 5:33 PM CDT [facility] Calcium 9.8 8.6 - 10.0 mg/dL 01/22/2023 5:33 PM CDT [facility] Glucose 90 70 - 99 mg/dL 01/22/2023 5:33 PM CDT [facility] Alkaline Phosphatase 82 35 - 104 U/L 01/22/2023 5:33 PM CDT [facility] AST 25 0 - 45 U/L 01/22/2023 5:33 PM CDT [facility] Comment:Reference intervals for this test were updated on 11/18/2022 to more accurately reflect our healthy population. There may be differences in the flagging of prior results with similar values performed with this method. Interpretation of those prior results can be made in the context of the updated reference intervals. ALT 22 0 - 50 U/L 01/22/2023 5:33 PM CDT [facility] Comment:Reference intervals for this test were updated on 11/18/2022 to more accurately reflect our healthy population. There may be differences in the flagging of prior results with similar values performed with this method. Interpretation of those prior results can be made in the context of the updated reference intervals. Protein Total 7.4 6.4 - 8.3 g/dL 01/22/2023 5:33 PM CDT [facility] Albumin 4.8 3.5 - 5.2 g/dL 01/22/2023 5:33 PM CDT [facility] Bilirubin Total 0.4 <=1.2 mg/dL 01/22/2023 5:33 PM CDT [facility] GFR Estimate 69 >60 mL/min/1. 73m2 01/22/2023 5:33 PM CDT [facility] Blood BLOOD SPECIMEN / Unknown Venipuncture / Unknown 01/21/2023 5:21 PM CDT 01/21/2023 5:21 PM CDT Iva Flannery MD LAB - BLOOD ORDERABLES [facility] [address] [facility], [address] [address], [facility] [phone] * Vitamin B12 (01/21/2023 5:21 PM CDT) Vitamin B12 713 232 - 1,245 pg/mL 01/22/2023 5:33 PM CDT [facility] Blood BLOOD SPECIMEN / Unknown Venipuncture / Unknown 01/21/2023 5:21 PM CDT 01/21/2023 5:21 PM CDT Iva Flannery MD LAB - BLOOD ORDERABLES [facility] [address] [facility], [address] [place] [address], [facility] [phone] * TSH with free T4 reflex (01/21/2023 5:21 PM CDT) TSH 0.91 0.30 - 4.20 uIU/mL 01/22/2023 5:33 PM CDT U [facility] Blood BLOOD SPECIMEN / Unknown Venipuncture / Unknown 01/21/2023 5:21 PM CDT 01/21/2023 5:21 PM CDT Iva Flannery MD LAB - BLOOD ORDERABLES U [facility] [address] [facility], [address] [phone], [facility] [phone] * Magnesium (01/21/2023 5:21 PM CDT) Pathologist [facility] Magnesium 2.0 1.7 - 2.3 mg/dL 01/22/2023 5:33 PM CDT LABORATORY Blood BLOOD SPECIMEN / Unknown Venipuncture / Unknown 01/21/2023 5:21 PM CDT 01/21/2023 5:21 PM CDT Iva Flannery MD LAB - BLOOD ORDERABLES LABORATORY [facility] [address] [facility], [address] [address], [facility] [phone] * (ABNORMAL) Factor 10 chromogenic (01/21/2023 5:09 PM CDT) Factor 10 Chromogenic 21(L) 70 - 130 % 01/22/2023 3:15 PM CDT [facility] Blood BLOOD SPECIMEN / Unknown Venipuncture / Unknown 01/21/2023 5:09 PM CDT 01/21/2023 5:09 PM CDT Narrative [facility] - 01/22/2023 3:15 PM CDT Therapeutic Range: ??A Chromogenic Factor 10 level of approximately 20-40% inversely correlates with an INR of 2-3 for patients receiving Warfarin. Chromogenic Factor 10 levels below 20% indicate an INR greater than 3 and levels above 40% indicate an INR less than 2. Jose Moore MD LAB - BLOOD ORDERABL ES [facility] [address] [facility], Room [address] [place] [address], [facility] [phone] * (ABNORMAL) Hemoglobin A1c (01/21/2023 5:09 PM CDT) Hemoglobin A1C 5.7(H) 0.0 - 5.6 % 01/21/2023 5:15 PM CDT [facility] Comment: Normal <5.7% Prediabetes 5.7-6.4% ?? Diabetes 6.5% or higher Note: Adopted from ADA consensus guidelines. 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 Jama's esophagus Dizziness Dizziness and giddiness Palpitations Abnormal finding of blood chemistry, unspecified Antiphospholipid syndrome (H24) Primary hypercoagulable state documented in this encounter Additional Health Concerns Assessment Noted Time PHQ-9 Depression Total Score: 17 023 3:44 PM CDT documented as of this encounter Care Teams Clinical Microbiologist Relationship Specialty Start Date End Date Shankar Peñaloza MD [address] [place] [address] [place] [address] PCP - General Internal Medicine 09/25/13 Navdeep Waldron MD [facility] [address] [place] [address] Physical Medicine & Rehabilitation - Pain Medicine 07/07/13 Shankar Peñaloza MD [address] [place] [address] [place] [address] Assigned PCP 07/22/16 Richardson Alberts PA-C [address] [place] [address] Physician Epic Ambulatory Analyst Gastroenterology 03/01/22 Shankar Peñaloza MD [address] [place] [address] [place] [address] Assigned Pain Medication Provider 06/17/22 Marielena Sunshine PA-C [address] [facility] [address] [place], [place] [address] Physician Epic Ambulatory Analyst Urology 10/03/22 Radha Rivas Personal Advocate & Liaison (PAL) 11/26/22 Marielena Sunshine PA-C [address] [facility] [place], [place] [id number] Assigned Surgical Provider 12/07/22 documented as of this encounter
--- OUTSIDE RECORDS SUMMARY | 2023-07-02 14:27 | XMS_ITS | Encounter Summary ---
Author Name Unknown Organization [facility] Address [address] [place] [address] Care Team Providers Care [facility] Representative Name Role Phone Navdeep Waldron MD Unavailable [phone] Shankar Peñaloza MD Primary Care Provider [phone] Shankar Peñaloza MD Unavailable [phone] Richardson Alberts PA-C Unavailable [phone] Shankar Peñaloza MD Unavailable [phone] Marielena Sunshine PA-C Unavailable Radha Rivas Unavailable Unavailable Marielena Sunshine PA-C Unavailable [phone] Reason for Visit * Reason Onset Date Comments Refill Request 02/05/2023 Encounter Details Date Type Department Care Team (Late st Contact Info) Description 02/05/2023 Marco Antonio Feliz [facility] Keisha [address] [place] [address] Shankar Peñaloza MD [address] [place] [address] [place] [address] Refill Request Social History [...] PM CDT documented as of this encounter Plan of Treatment Upcoming Encounters Date Type Department Care Team (Late st Contact Info) Description 07/16/2023 3:30 PM RENEWALS REPRESENTATIVE Office Visit [address] [place] [address] Shankar Peñaloza MD [address] [place] [address] [place] [address] 2023 3:00 PM RENEWALS REPRESENTATIVE Virtual Visit [facility] [address] [place] [address] 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, [address] [place] [address] 08/13/2023 2:30 PM RENEWALS REPRESENTATIVE Office Visit [facility] [address] [place] [phone] [place] [address] [place], [place] [id number] documented as of this encounter Visit Diagnoses Diagnosis Fibromyalgia Mylagia and myositis, unspecified documented in this encounter Additional Health Concerns Assessment Noted Time PHQ-9 Depression Total Score: 17 023 3:44 PM CDT documented as of this encounter Care Teams Medical Center Representative Relationship Specialty Start Date End Date Shankar Peñaloza MD [address] [place] [address] [place] [address] PCP - General Internal Medicine 09/25/13 [facility] [address] [place] [address] Physical Medicine & Rehabilitation - Pain Medicine 07/07/13 Shankar Peñaloza MD [facility] [place] [address] Assigned PCP 07/22/16 Richardson Alberts PA-C [address] [place] [address] Physician Microelectronics Technician Gastroenterology 03/01/22 Shankar Peñaloza MD [address] [place] [address] [place] [address] Assigned Pain Medication Provider 06/17/22 Marielena Sunshine PA-C [address] [facility] [address] [place] [address] Physician Microelectronics Technician Urology 10/03/22 Radha Rivas Personal Advocate & Liaison (PAL) 11/26/22 Marielena Sunshine PA-C [address] [facility] [place] [id number] Assigned Surgical Provider 12/07/22 documented as of this encounter
--- OUTSIDE RECORDS SUMMARY | 2023-07-02 14:27 | XMS_ITS | Encounter Summary ---
Author Name Unknown Organization [facility] Address [address] [place] [address] Care Team Providers Care Non Destructive Testing Engineer Name Role Phone Navdeep Waldron MD Unavailable [phone] Shankar Peñaloza MD Primary Care Provider [phone] Shankar Peñaloza MD Unavailable [phone] Richardson Alberts PA-C Unavailable [phone] Shankar Peñaloza MD Unavailable [phone] Marielena Sunshine PA-C Unavailable Radha Rivas Unavailable Unavailable Marielena Sunshine PA-C Unavailable Encounter Details Date Type Department Care Team (Latest Contact Info) Description 03/11/2023 Travel Social History Tobacco Use Types Packs/Day [...] st Contact Info) Description 07/16/2023 3:30 PM PAPER CARRIER Office Visit [facility] [address] [place] [address] Shankar Peñaloza MD [address] [facility] [place] [id number] 2023 3:00 PM PAPER CARRIER Virtual Visit [facility] [address] [place] [address] 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, DIRECTOR BANKING [address] [place], [place] [id number] 08/13/2023 2:30 PM PAPER CARRIER Office Visit [facility] [address] [place] [phone] [place] [address] [place], [place] [id number] documented as of this encounter Visit Diagnoses Not on filedocumented in this encounter Additional Health Concerns Assessment Noted Time PHQ-9 Depression Total Score: 19 023 10:41 AM CDT documented as of this encounter Care Teams Non Destructive Testing Engineer Relationship Specialty Start Date End Date Shankar Peñaloza MD [address] [place] [address] [place] [address] PCP - General Internal Medicine 09/25/13 Navdeep Waldron MD [facility] [address] [place] [address] Physical Medicine & Rehabilitation - Pain Medicine 07/07/13 Shankar Peñaloza MD [address] [place] [address] [place] [address] Assigned PCP 07/22/16 Richardson Alberts PA-C [address] [place] [address] Physician Insurance Instructor Gastroenterology 03/01/22 Shankar Peñaloza MD [address] [place] [address] [place] [address] Assigned Pain Medication Provider 06/17/22 Marielena Sunshine PA-C [address] [facility] [address] [place] [address] Physician Insurance Instructor Urology 10/03/22 Radha Rivas Personal Advocate & Liaison (PAL) 11/26/22 Marielena Sunshine PA-C [address] [facility] [address] [place], [place] [address] Assigned Surgical Provider 12/07/22 documented as of this encounter
--- OUTSIDE RECORDS SUMMARY | 2023-07-02 14:27 | XMS_ITS | Encounter Summary ---
Author Name Unknown Organization [facility] Address [address] [place] [address]. [place] [address] Care Team Providers Care Napper Tender Name Role Phone Navdeep Waldron MD Unavailable [phone] Shankar Peñaloza MD Primary Care Provider Shankar Peñaloza MD Unavailable [phone] Richardson AlbertsC Unavailable [phone] Shankar Peñaloza MD Unavailable [phone] Marielena Sunshine PA-C Unavailable [phone] Radha Rivas Unavailable Unavailable Marielena Sunshine PA-C Unavailable Reason for Referral * Mental Health Outpatient (Routine: Next available opening) - Closed Specialty Diagnoses / Procedures Referred By Contac t Referred To Contact Behavioral Health Diagnoses Severe episode of recurrent major depressive disorder, without psychotic features ([place]) [place] [address] [place] [address] Referral ID Status Reason Start Date Expiration Date Visits Re quested Visits Authorized [id number] Closed 03/11/2023 03/10/2024 1 1 Question Answer Services: Psychotherapy/Counseling (non-medication) Reason for Referral: Individual Psychotherapy/Counseling Scheduling Instructions: [facility] will call you to coordinate your care as prescribed by your provider. If you don't hear from a telemarketing sales representative within 2 business days, please call . Comments Please be aware that coverage of these services is subject to the terms and limitations of your health insurance plan. Call member services at your health plan with any benefit or coverage questions. [facility] will call you to coordinate your care as prescribed by your provider. If you don't hear from a telemarketing sales representative within 2 business days, please call . Reason for Visit * Reason Comments Medicare Visit Encounter Details Date Type Department Care Team (Late st Contact Info) Description 03/11/2023 10:30 AM CDT Office Visit [facility] [address] [place] [phone] [place] [address] [place] [address] Severe episode of recurrent major depressive disorder, without psychotic features (H) (Primary Dx); Menopause; Antiphospholipid syndrome (H24); Personal history of DVT (deep vein thrombosis); Serotonin syndrome Social History Tobacco Use Types Packs/Day Years [...] Sign Reading Time Taken Comments Blood Pressure 124/84 03/11/2023 10:21 AM CDT Pulse 80 03/11/2023 10:21 AM CDT Temperature 36.9 ??C (98.4 ??F) 03/11/2023 10:21 AM C DT Respiratory Rate 16 03/11/2023 10:21 AM CDT Oxygen Saturation 98% 03/11/2023 10:21 AM CDT Inhaled Oxygen Concentration - - Weight 85.3 kg (188 lb) 03/11/2023 10:21 AM CDT Height 170.2 cm (5' 7) 03/11/2023 10:21 AM CDT Body Mass Index 29.44 03/11/2023 10:21 AM CDT documented in this encounter Progress Notes * Koko Tracey MD - 03/11/2023 10:30 AM CDT Assessment & Plan Severe episode of recurrent major depressive disorder, without psychotic features (H) Menopause Antiphospholipid syndrome (H24) Personal history of DVT (deep vein thrombosis) Serotonin syndrome Hx of lifelong depression but worsening over the past several years (after menopause) which has contributed to her symptoms. Her story is complicated by hx of APL syndrome, anticoagulated with warfarin thus not candidate for HRT along with hx of serotonin syndrome while on above max dose of sertraline (300mg) along with simultaneous prescription of tramadol and bupropion. She has since taken lower doses of selective serotonin reuptake inhibitor without another repeat of serotonin syndrome sincethat time. Has seen psychiatry in the past in which multiple different medications were prescribed and ECT was offered. Patient has declined. Has had antidepressant gene testing and reports that all were not great for me. Has tried both gabapentin, clonidine for hot flashes and not noted to be helpful. Passive SI present. No active plans. Has supportive family. Plan to start citalopram (has never tried per chart review) for both MDD and menopausal symptoms, refer to psychiatry for ongoing treatment and start therapy. Follow up in one month for reassessment. - Factor 10 chromogenic - [facility] - citalopram, 10 mg daily Follow up in one month to reassess Koko Tracey MD [facility] 03/11/2023 Subjective Genevieve is a 57 year old, presenting for the following health issues: Medicare Visit 03/11/2023 10:12 AM Additional Questions Roomed by blessing randolph cma Accompanied by self 03/11/2023 10:12 AM Patient Reported Additional Medications Patient reports taking the following new medications na HPI MDD/Menopause Has been dealing with depression for all her life. Has been in menopause for the past 9 years. This seems to be worsening her symptoms quite severely when she is having hot flashes. Was in therapy and had psychiatrist, went through medications prescribed by them. Nothing entire life was helpful. Or was super sick on it. Either one. Can't have anything for medication as she has antiphospholipid syndrome and is currently anticoagulated on warfarin. Unable to even take non hormonal supplements such as black cohosh and phyto-estrogens due to concern for DVT/PE/stroke. In - developed serotonin syndrome when she was taking 300mg sertraline, 50mg tramadol andbupropion. At this point, she was stopped on medications cold turkey. During therapy, did genetic testing and noted that all meds were not compatible. Did have discussion of ECT but is absolute no go for her due to memory loss side effect. Has been on zoloft and bupropion - never had side effects with these two in the past. Was going between these two but recently was having severe stomach issues - stopped bupropion and transitioned back to zoloft. But stomach issues persisted. Dx with Barretts in February - then started omeprazole. Transitioned to pantoprazole. Is on clonidine for this but has not been helpful. Is still taking but no change. Has tried gabapentin in the past - doesn't want to try this again ever again. Objective BP 124/84 Pulse 80 Temp 98.4 ??F (36.9 ??C) (Oral) Resp 16 Ht 1.702 m (5' 7) Wt 85.3 kg (188 lb) SpO2 98% BMI 29.44 kg/m?? Body mass index is 29.44 kg/m??. Physical Exam GENERAL: healthy, alert and no distress HEAD: Normocephalic, atraumatic. EYES: Normal conjunctivae, sclera. RESP: Normal respiratory effort. MSK: no gross musculoskeletal defects noted. SKIN: no suspicious lesions or rashes. NEURO: CNII-XII grossly intact. No focal deficits. PSYCH: Groomed, dressed appropriately for weather. Linear, logical thought process. Passive suicidal ideation present. No plan. Has a strong support system. Mood is really low with consistent, tearful affect. documented in this encounter Plan of Treatment Upcoming Encounters Date Type Department Care Team (Late st Contact Info) Description 07/16/2023 3:30 PM LEAD C DEVELOPER Office Visit [facility] [address] [place] [address] Shankar Peñaloza MD [address] [place] [address] [place] [address] 2023 3:00 PM LEAD C DEVELOPER Virtual Visit [facility] [address] [place] [phone] 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, ELECTRICAL PROSPECTING SUPERVISOR [address] [place] [address] 08/13/2023 2:30 PM LEAD C DEVELOPER Office Visit [facility] [address] [place] [phone] [place] [address] [place] [address] Scheduled Referrals Name Type Priority Associated Diagnoses Orde r Schedule Adult Mental Health Skin Installer Referral Referral Routine: Next available opening Severe episode of recurrent major depressive disorder, without psychotic features (H) Expected: 03/11/2023 (Approximate), Expires: 03/11/2024 documented as of this encounter Procedures Procedure Name Priority Date/Time Associated Diagnosis Comments FACTOR 10 CHROMOGENIC Routine 03/11/2023 11:13 AM CDT Antiphospholipid syndrome (H24) documented in this encounter Results * (ABNORMAL) Factor 10 chromogenic (03/11/2023 11:13 AM CDT) Factor 10 Chromogenic 27(L) 70 - 130 % 03/12/2023 8:57 AM CDT [facility] Blood BLOOD SPECIMEN / Unknown Venipuncture / Unknown 03/11/2023 11:13 AM CDT 03/11/2023 11:13 AM CDT Narrative [facility] - 03/12/2023 8:57 AM CDT Therapeutic Range: ??A Chromogenic Factor 10 level of approximately 20-40% inversely correlates with an INR of 2-3 for patients receiving Warfarin. Chromogenic Factor 10 levels below 20% indicate an INR greater than 3 and levels above 40% indicate an INR less than 2. 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 documented in this encounter Additional Health Concerns Assessment Noted Time PHQ-9 Depression Total Score: 19 023 10:41 AM CDT documented as of this encounter Care Teams Napper Tender Relationship Specialty Start Date End Date Shankar Peñaloza MD [address] [place] [address] [place] [address] PCP - General Internal Medicine 09/25/13 Navdeep Waldron MD [facility] [address] [place] [address] Physical Medicine & Rehabilitation - Pain Medicine 07/07/13 Shankar Peñaloza MD [address] [place] [address] [place] [address] Assigned PCP 07/22/16 Richardson Alberts PA-C [address] [place] [address] Physician Jewelry Casting Model Maker Apprentice Gastroenterology 03/01/22 Shankar Peñaloza MD [address] [place] [address] [place] [address] Assigned Pain Medication Provider 06/17/22 Marielena Sunshine PA-C [address] [facility] [address] [place] [address] Physician Jewelry Casting Model Maker Apprentice Urology 10/03/22 Radha Rivas Personal Advocate & Liaison (PAL) 11/26/22 Marielena Sunshine PA-C [address] [place] [address] [place] [address] Assigned Surgical Provider 12/07/22 documented as of this encounter
--- OUTSIDE RECORDS SUMMARY | 2023-07-02 14:27 | XMS_ITS | Encounter Summary ---
Author Name Unknown Organization [facility] Address [address] [place] [address]. [place] [address] Care Team Providers Care Slice Cutting Machine Operator Helper Name Role Phone Navdeep Waldron MD Unavailable [phone] Shankar Peñaloza MD Primary Care Provider Shankar Peñaloza MD Unavailable [phone] Richardson Alberts PA-C Unavailable [phone] Shankar Peñaloza MD Unavailable [phone] Marielena Sunshine PA-C Unavailable Radha Rivas Unavailable Unavailable Marielena Sunshine PA-C Unavailable [phone] Reason for Visit * Reason Onset Date Comments Clinic Care Coordination - Follow-up 12/24/2022 Encounter Details Date Type Department Care Team (Late st Contact Info) Description 12/24/2022 Telephone [facility] [address] [place] [address] Marielena Sunshine PA-C [address] [facility] [address] [id number] Clinic Care Coordination - Follow-up Social History Tobacco Use Types Packs/Day Years Used Date Smoking Tobacco: Former Cigarettes Q uit: 02/12/2021 Smokeless Tobacco: Never Alcohol Use Standard Drinks/Week Comments No 0 (1 standard drink = 0.6 oz pur e alcohol) PHQ-2 Answer Date Recorded PHQ-2 Score 6 11/05/2022 Sex and Gender Information Value Date Recorded Sex Assigned at Not on file Gender Identity Not on file Sexual Orientation Not on file documented as of this encounter Miscellaneous Notes * Telephone Encounter - Ursula Morris - 12/24/2022 12:28 PM CDT ----- Message from Shelly Rhodes sent at 12/04/2022 3:32 PM CDT ----- Regarding: Nurse visit Nurse visit for UA and PVR HYF 12/04/22 documented in this encounter Plan of Treatment Upcoming Encounters Date Type Department Care Team (Late st Contact Info) Description 07/16/2023 3:30 PM DIMENSION MILL WORKER Office Visit [facility] [address] [place] [address] Shankar Peñaloza MD [address] [facility] [place] [address] 2023 3:00 PM DIMENSION MILL WORKER Virtual Visit [facility] [address] [place] [address] 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, [address] [address] 08/13/2023 2:30 PM DIMENSION MILL WORKER Office Visit [facility] [address] [place] [phone] [place] [address] [place] [address] documented as of this encounter Visit Diagnoses Not on filedocumented in this encounter Additional Health Concerns Assessment Noted Time PHQ-9 Depression Total Score: 16 023 1:59 PM CDT documented as of this encounter Care Teams Slice Cutting Machine Operator Helper Relationship Specialty Start Date End Date Shankar Peñaloza MD [address] [place] [address] [place] [address] PCP - General Internal Medicine 09/25/13 Navdeep Waldron MD [facility] [address] [place] [address] Physical Medicine & Rehabilitation - Pain Medicine 07/07/13 Shankar Peñaloza MD [address] [place] [address] [place] [address] Assigned PCP 07/22/16 Richardson Alberts PA-C [address] [place] [address] Physician Night Time Babysitter Gastroenterology 03/01/22 Shankar Peñaloza MD [address] [place] [address] [place] [address] Assigned Pain Medication Provider 06/17/22 Marielena Sunshine PA-C [address] [facility] [facility] [address] [place], [place] [address] Physician Night Time Babysitter Urology 10/03/22 Radha Rivas Personal Advocate & Liaison (PAL) 11/26/22 Marielena Sunshine PA-C [address] [facility] [address] [place], [place] [address] Assigned Surgical Provider 12/07/22 documented as of this encounter
--- OUTSIDE RECORDS SUMMARY | 2023-07-02 14:27 | XMS_ITS | Encounter Summary ---
Author Name Unknown Organization [facility] Address [address] [place] [address] Care Team Providers Care Store Gift Wrap Associate Name Role Phone Navdeep Waldron MD Unavailable [phone] Shankar Peñaloza MD Primary Care Provider Shankar Peñaloza MD Unavailable [phone] Richardson Alebrts PA-C Unavailable [phone] Shankar Peñaloza MD Unavailable [phone] Marielena Sunshine PA-C Unavailable Radha Rivas Unavailable Unavailable Marielena Sunshine PA-C Unavailable [phone] Reason for Visit * Reason Onset Date Comments Refill Request 01/02/2023 Encounter Details Date Type Department Care Team (Late st Contact Info) Description 01/02/2023 Marco Antonio Feliz [facility] [address] [place] [address] Shankar Peñaloza MD [address] [place] [address] [place] [address] Refill Request Social History [...] st Contact Info) Description 07/16/2023 3:30 PM BOBBIN TRUCKER Office Visit [address] [place] [address] Shankar Peñaloza MD [address] [place] [address] [place] [address] 2023 3:00 PM BOBBIN TRUCKER Virtual Visit [facility] Addiction [address] [place] [address] 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, [facility] [address] [place] [address] 08/13/2023 2:30 PM BOBBIN TRUCKER Office Visit [facility] [address] [place] [address] [place] [address] [place] [address] documented as of this encounter Visit Diagnoses Diagnosis Fibromyalgia Mylagia and myositis, unspecified documented in this encounter Additional Health Concerns Assessment Noted Time PHQ-9 Depression Total Score: 16 023 1:59 PM CDT documented as of this encounter Care Teams Store Gift Wrap Associate Relationship Specialty Start Date End Date Shankar Peñaloza MD [address] [place] [address] [place] [address] PCP - General Internal Medicine 09/25/13 Navdeep Waldron MD [facility] [address] [place] [address] Physical Medicine & Rehabilitation - Pain Medicine 07/07/13 Shankar Peñaloza MD [address] [facility] [place] [address] Assigned PCP 07/22/16 Richardson Alberts PA-C [address] [place] [address] Physician Director Call Center Sales Gastroenterology 03/01/22 Shankar Peñaloza MD [address] [facility] [place] [address] Assigned Pain Medication Provider 06/17/22 Marielena Sunshine PA-C [address] [facility] [address] [place], [place] [address] Physician Director Call Center Sales Urology 10/03/22 Radha Rivas Personal Advocate & Liaison (PAL) 11/26/22 Marielena Sunshine PA-C [address] [place] [address] Assigned Surgical Provider 12/07/22 documented as of this encounter
--- OUTSIDE RECORDS SUMMARY | 2023-07-02 14:27 | XMS_ITS | Encounter Summary ---
Author Name Unknown Organization [facility] Address [address] [place] [address] Care Team Providers Care Heel Sprayer Name Role Phone Navdeep Waldron MD Unavailable [phone] Shankar Peñaloza MD Primary Care Provider [phone] Shankar Peñaloza MD Unavailable [phone] Richardson Alberts PA-C Unavailable [phone] Shankar Peñaloza MD Unavailable [phone] Marielena Sunshine PA-C Unavailable Radha Rivas Unavailable Unavailable Marielena Sunshine PA-C Unavailable [phone] Reason for Visit * Reason Onset Date Comments Refill Request 03/12/2023 Encounter Details Date Type Department Care Team (Late st Contact Info) Description 03/12/2023 Marco Antonio Feliz [facility] [address] [place] [address] Shankar Peñaloza MD [address] [place] [address] [place] [address] Refill Request Social History [...] Telephone Encounter - Elvi Quinones RN - 03/13/2023 3:57 PM CDT Routing refill request to provider for review/approval because: Drug not on the [facility] refill protocol Elvi Quinones RN, BSN [facility] documented in this encounter Plan of Treatment Upcoming Encounters Date Type Department Care Team (Late st Contact Info) Description 07/16/2023 3:30 PM STEAM DRIER OPERATOR Office Visit [address] [place] [address] Shankar Peñaloza MD [address] [place] [address] [place] [address] 2023 3:00 PM STEAM DRIER OPERATOR Virtual Visit [facility] Mental Health and Addiction [address] [place] 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 [address] 08/13/2023 2:30 PM STEAM DRIER OPERATOR Office Visit [facility] [address] [place] [address] [place] [address] [place] [address] documented as of this encounter Visit Diagnoses Diagnosis Fibromyalgia Mylagia and myositis, unspecified documented in this encounter Additional Health Concerns Assessment Noted Time PHQ-9 Depression Total Score: 19 023 10:41 AM CDT documented as of this encounter Care Teams Heel Sprayer Relationship Specialty Start Date End Date Shankar Peñaloza MD [address] [place] [address] [place] [address] PCP - General Internal Medicine 09/25/13 Navdeep Waldron MD [facility] [address] [place] [address] Physical Medicine & Rehabilitation - Pain Medicine 07/07/13 Shankar Peñaloza MD [address] [facility] [place] [address] Assigned PCP 07/22/16 Richardson Alberts PA-C [address] [place] [address] Physician Solid Glass Rod Dowel Machine Operator Gastroenterology 03/01/22 Shankar Peñaloza MD [address] [facility] [place] [address] Assigned Pain Medication Provider 06/17/22 Marielena Sunshine PA-C [address] [facility] [address] [place] [address] Physician Solid Glass Rod Dowel Machine Operator Urology 10/03/22 Radha Rivas Personal Advocate & Liaison (PAL) 11/26/22 Marielena Sunshine PA-C [address] [facility] [address] [place], [place] [address] Assigned Surgical Provider 12/07/22 documented as of this encounter
--- OUTSIDE RECORDS SUMMARY | 2023-07-02 14:27 | XMS_ITS | Encounter Summary ---
Author Name Unknown Organization [place] Address [address] [place] [address] Care Team Providers Care Keno Dealer Name Role Phone Navdeep Waldron MD Unavailable [phone] Shankar Peñaloza MD Primary Care Provider Shankar Peñaloza MD Unavailable [phone] Richardson Alberts PA-C Unavailable [phone] Shankar Peñaloza MD Unavailable [phone] Marielena Sunshine PA-C Unavailable Radha Rivas Unavailable Unavailable Marielena Sunshine PA-C Unavailable Reason for Visit * Reason Onset Date Comments Refill Request 02/08/2023 Encounter Details Date Type Department Care Team (Late st Contact Info) Description 02/08/2023 Marco Antonio Feliz [facility] [place] [address] [place] [address] Shankar Peñaloza MD [address] [place] [address] [place] [address] Refill Request Social History [...] PM CDT documented as of this encounter Miscellaneous Notes * Telephone Encounter - Shankar Peñaloza MD - 02/11/2023 12:23 PM CDT Duplicate request documented in this encounter Plan of Treatment Upcoming Encounters Date Type Department Care Team (Late st Contact Info) Description 07/16/2023 3:30 PM LIFE SCIENCES DIRECTOR Office Visit [address] [place] [address] Shankar Peñaloza MD [address] [place] [address] [place] [address] 2023 3:00 PM LIFE SCIENCES DIRECTOR Virtual Visit [facility] [address] [place] [address] 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, [facility] [address] [place] [address] 08/13/2023 2:30 PM LIFE SCIENCES DIRECTOR Office Visit [facility] [address] [place] [phone] [place] [address] [place], [place] [phone] documented as of this encounter Visit Diagnoses Diagnosis Fibromyalgia Mylagia and myositis, unspecified documented in this encounter Additional Health Concerns Assessment Noted Time PHQ-9 Depression Total Score: 17 023 3:44 PM CDT documented as of this encounter Care Teams Keno Dealer Relationship Specialty Start Date End Date Shankar Peñaloza MD [address] [place] [address] [place] [address] PCP - General Internal Medicine 09/25/13 Navdeep Waldron MD [facility] [address] [place] [address] Physical Medicine & Rehabilitation - Pain Medicine 07/07/13 Shankar Peñaloza MD [address] [place] [address] [place] [address] Assigned PCP 07/22/16 Richardson Alberts PA-C [address] [place] [address] Physician Corporate Communications Specialist Gastroenterology 03/01/22 Shankar Peñaloza MD [address] [place] [address] [place] [address] Assigned Pain Medication Provider 06/17/22 Marielena Sunshine PA-C [address] [facility] [address] [place] [address] Physician Corporate Communications Specialist Urology 10/03/22 Radha Rivas Personal Advocate & Liaison (PAL) 11/26/22 Marielena Sunshine PA-C [address] [place], [place] [address] Assigned Surgical Provider 12/07/22 documented as of this encounter
--- OUTSIDE RECORDS SUMMARY | 2023-07-02 14:27 | XMS_ITS | Encounter Summary ---
Author Name Unknown Organization [place] Address [address] [place] [address] Care Team Providers Care Jewelry Jobber Name Role Phone Navdeep Waldron MD Unavailable [phone] Shankar Peñaloza MD Primary Care Provider Shankar Peñaloza MD Unavailable [phone] Richardson AlbertsC Unavailable [phone] Shankar Peñaloza MD Unavailable [phone] Marielena Sunshine PA-C Unavailable Radha Rivas Unavailable Unavailable Reason for Visit * Reason Onset Date Comments Refill Request 12/04/2022 Encounter Details Date Type Department Care Team (Late st Contact Info) Description 12/04/2022 MyC Refill M [facility] [address] [place] [address] [place] [address] Shankar Peñaloza MD [address] [place] [address] [place] [address] Refill Request Social History [...] suspected to have Coronavirus/COVID-19? No / Unsure 11/05/2022 1:52 PM CDT documented as of this encounter Plan of Treatment Upcoming Encounters Date Type Department Care Team (Late st Contact Info) Description 07/16/2023 3:30 PM MEDICAL CLAIMS MANAGER Office Visit [address] [place] [address] Shankar Peñaloza MD [address] [place] [address] [place] [address] 2023 3:00 PM MEDICAL CLAIMS MANAGER Virtual Visit [facility] [address] [place] [address] 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, [facility] [address] [place] [address] 08/13/2023 2:30 PM MEDICAL CLAIMS MANAGER Office [facility] [address] [place] [phone] [place] [address] [place] [phone] documented as of this encounter Visit Diagnoses Diagnosis Fibromyalgia Mylagia and myositis, unspecified documented in this encounter Additional Health Concerns Assessment Noted Time PHQ-9 Depression Total Score: 16 023 1:59 PM CDT documented as of this encounter Care Teams Jewelry Jobber Relationship Specialty Start Date End Date Shankar Peñaloza MD [address] [place] [address] [place] [address] PCP - General Internal Medicine 09/25/13 Navdeep Waldron MD [facility] [address] [place] [address] Physical Medicine & Rehabilitation - Pain Medicine 07/07/13 Shankar Peñaloza MD [address] [facility] [place] [address] Assigned PCP 07/22/16 Richardson Alberts PA-C [address] [place] [address] Physician Signalman Gastroenterology 03/01/22 Shankar Peñ[place] [address] [place] [address] [place] [address] Assigned Pain Medication Provider 06/17/22 Marielena Sunshine PA-C [address] [facility] [address] [place] [address] Physician Signalman Urology 10/03/22 Radha Rivas Personal Advocate & Liaison (PAL) 11/26/22 documented as of this encounter
--- OUTSIDE RECORDS SUMMARY | 2023-07-02 14:27 | XMS_ITS | Encounter Summary ---
Author Name Unknown Organization [place] Address [address] [place] [address]. [place] [address] Care Team Providers Care Sleeve Tailor Name Role Phone Navdeep Waldron MD Unavailable [phone] Shankar Peñaloza MD Primary Care Provider [phone] Shankar Peñaloza MD Unavailable [phone] Richardson Alberts PA-C Unavailable [phone] Shankar Peñaloza MD Unavailable [phone] Marielena Sunshine PA-C Unavailable [phone] Radha Rivas Unavailable Unavailable Marielena Sunshine PA-C Unavailable [phone] 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 [facility] Unavailable [phone] Encounter Details Date Type Department Care Team (Late st Contact Info) Description 03/18/2023 Marco Antonio Feliz [facility] [address] [address] Ralph Garcia Social History Tobacco Use Types Packs/Day Years [...] st Contact Info) Description 07/16/2023 3:30 PM SALES ORDER COORDINATOR Office Visit [facility] [place] [address] [place] [address] Shankar Peñ[place]za [place] [address] [place] [address] [place] [address] 2023 3:00 PM SALES ORDER COORDINATOR Virtual Visit [facility] [place] [address] [place] [address] Job Jaramlilo, WELFARE ADVISER [address] [place] [address] 08/13/2023 2:30 PM SALES ORDER COORDINATOR Office Visit [facility] [address] [place] [address] [place] [address] [place] [address] documented as of this encounter Visit Diagnoses Not on filedocumented in this encounter Additional Health Concerns Assessment Noted Time PHQ-9 Depression Total Score: 19 023 10:41 AM CDT documented as of this encounter Care Teams Sleeve Tailor Relationship Specialty Start Date End Date Shankar Peñaloza MD [address] [facility] [place] [address] PCP - General Internal Medicine 09/25/13 Navdeep Waldron MD [facility] [address] [place] [address] Physical Medicine & Rehabilitation - Pain Medicine 07/07/13 Shankar Peñaloza MD [address] [facility] [place] [address] Assigned PCP 07/22/16 Richardson Alberts PA-C [address] [place] [address] Physician L D Rn Gastroenterology 03/01/22 Shankar Peñaloza MD [address] [facility] [place] [address] Assigned Pain Medication Provider 06/17/22 Marielena Sunshine PA-C [address] [facility] 377 [place], [place] [address] Physician L D Rn Urology 10/03/22 Radha Rivas Personal Advocate & Liaison (PAL) 11/26/22 Marielena Sunshine PA-C [address] [facility] 500 [place], [place] [address] Assigned Surgical Provider 12/07/22 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 LICSW [address] [place] [address] Glass Etcher Glass Etcher - Clinical 06/23/23 documented as of this encounter
--- OUTSIDE RECORDS SUMMARY | 2023-07-02 14:27 | XMS_ITS | Encounter Summary ---
Author Name Unknown Organization [place] Address [address] [place] [address] Care Team Providers Care Brush Clearing Laborer Name Role Phone Navdeep Waldron MD Unavailable [phone] Shankar Peñaloza MD Primary Care Provider [phone] Shankar Peñaloza MD Unavailable [phone] Richardson Alberts PA-C Unavailable [phone] Shankar Peñaloza MD Unavailable [phone] Marielena Sunshine PA-C Unavailable Radha Rivas Unavailable Unavailable Marielena Sunshine PA-C Unavailable Encounter Details Date Type Department Care Team (Latest Contact Info) Description 01/21/2023 Travel Social History Tobacco Use Types Packs/Day [...] st Contact Info) Description 07/16/2023 3:30 PM MUSIC INDUSTRY INTERN Office Visit [facility] [address] [place] [address] Shankar Peñ[place]za [place] [address] [place] [address] [place] [address] 2023 3:00 PM MUSIC INDUSTRY INTERN Virtual Visit [facility] Addiction [facility] [address] [place] [phone] 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, [facility] [address] [place], [place] [address] 08/13/2023 2:30 PM MUSIC INDUSTRY INTERN Office Visit [facility] [address] [place] [address] [place] [address] [place] [address] documented as of this encounter Visit Diagnoses Not on filedocumented in this encounter Additional Health Concerns Assessment Noted Time PHQ-9 Depression Total Score: 17 023 3:44 PM CDT documented as of this encounter Care Teams Brush Clearing Laborer Relationship Specialty Start Date End Date Shankar Peñaloza MD [address] [place] [address] [place] [address] PCP - General Internal Medicine 09/25/13 Navdeep Waldron MD [facility] [address] [place] [address] Physical Medicine & Rehabilitation - Pain Medicine 07/07/13 Shankar Peñaloza MD [address] [facility] [place] [address] Assigned PCP 07/22/16 Richardson Alberts PA-C [address] [place] [address] Physician Director Of Student Affairs Gastroenterology 03/01/22 Shankar Peñaloza MD [address] [facility] [place] [address] Assigned Pain Medication Provider 06/17/22 Marielena Sunshine PA-C [address] [facility] [address] [place], [place] [address] Physician Director Of Student Affairs Urology 10/03/22 Radha Rivas Personal Advocate & Liaison (PAL) 11/26/22 Marielena Sunshine PA-C [address] [facility] 500 [place] [address] Assigned Surgical Provider 12/07/22 documented as of this encounter
--- OUTSIDE RECORDS SUMMARY | 2023-07-02 14:27 | XMS_ITS | Encounter Summary ---
Author Name Unknown Organization [place] Address [address] [place] [address]. [place] [address] Care Team Providers Care Rolling Mill Operator Helper Name Role Phone Navdeep Waldron MD Unavailable [phone] Shankar Peñaloza MD Primary Care Provider Shankar Peñaloza MD Unavailable [phone] Richardson Alberts PA-C Unavailable [phone] Shankar Peñaloza MD Unavailable [phone] Marielena Sunshine PA-C Unavailable Radha Rivas Unavailable Unavailable Marielena Sunshine PA-C Unavailable [phone] 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 Unavailable Encounter Details Date Type Department Care Team (Late st Contact Info) Description 03/27/2023 Marco Antonio Medical [facility]iar[facility] Feliz [place] [id number] [place] [address] [place] [address] [place] [address] Social History Tobacco Use Types Packs/Day Years [...] encounter Miscellaneous Notes * Telephone Encounter - Beckie Montes RN - 03/27/2023 4:01 PM CDT FYI Discussed provider message with patient. Patient stated doesn't think this is it as has had before.Advised on symptoms of serotonin syndrome and present symptoms did indicate this. Patient advised to stop medication and go to ED per provider advice. Beckie Montes RN * Telephone Encounter - Koko Tracey MD - 03/27/2023 3:52 PM CDT Brief chart review. Please call patient and have her stop medication immediately. This is concerning for serotonin syndrome especially in setting of prior hx of serotonin syndrome. I would recommend evaluation in ED to rule out. Please call her to let her know. Thank you, Koko Tracey MD [facility] 03/27/2023 documented in this encounter Plan of Treatment Upcoming Encounters Date Type Department Care Team (Late st Contact Info) Description 07/16/2023 3:30 PM COOKING APPLIANCE REPAIR TECHNICIAN Office Visit [address] [place] [address] Shankar Peñaloza MD [address] [place] [address] [place] [address] 2023 3:00 PM COOKING APPLIANCE REPAIR TECHNICIAN Virtual Visit [facility] [address] [place] [address] 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, [address] [address] 08/13/2023 2:30 PM COOKING APPLIANCE REPAIR TECHNICIAN Office Visit [facility] [address] [place] [phone] [place] [address] [place], [place] [phone] documented as of this encounter Visit Diagnoses Not on filedocumented in this encounter Additional Health Concerns Assessment Noted Time PHQ-9 Depression Total Score: 19 023 10:41 AM CDT documented as of this encounter Care Teams Rolling Mill Operator Helper Relationship Specialty Start Date End Date Shankar Peñaloza MD [address] [place] [address] [place] [address] PCP - General Internal Medicine 09/25/13 Navdeep Waldron MD [facility] [address] [place] [address] Physical Medicine & Rehabilitation - Pain Medicine 07/07/13 Shankar Peñaloza MD [address] [place] [address] [place] [address] Assigned PCP 07/22/16 Richardson Alberts PA-C [address] [place] [address] Physician Extermination Supervisor Gastroenterology 03/01/22 Shankar Peñaloza MD [address] [place] [address] [place] [address] Assigned Pain Medication Provider 06/17/22 Marielena Sunshine PA-C [address] [facility] [address] [place], [place] [address] Physician Extermination Supervisor Urology 10/03/22 Radha Rivas Personal Advocate & Liaison (PAL) 11/26/22 Marielena Sunshine PA-C [address] [facility] [facility] [address] [place], [place] [address]87[address] Assigned Surgical Provider 12/07/22 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 LICSW [address] [place] [address] Electric Crane Operator Electric Crane Operator - Clinical 06/23/23 documented as of this encounter
--- OUTSIDE RECORDS SUMMARY | 2023-07-02 14:28 | XMS_ITS | Encounter Summary ---
Author Name Unknown Organization [place] Address [address] [place] [address] Care Team Providers Care Footwear Stitcher Name Role Phone Navdeep Waldron MD Unavailable [phone] Shankar Peñaloza MD Primary Care Provider Shankar Peñaloza MD Unavailable [phone] Leeanna Joe MD Unavailable Richardson Alberts-C Unavailable [phone] Shankar Peñaloza MD Unavailable [phone] Marielena Sunshine PA-C Unavailable Radha Rivas Unavailable Unavailable Marielena Sunshine PA-C Unavailable [phone] 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 Unavailable Reason for Visit * Reason Onset Date Comments Refill Request 09/30/2022 Encounter Details Date Type Department Care Team (Late st Contact Info) Description 09/30/[address] [facility] [place] [address] [facility] [address] [place] [address] [place]ón [place] [address] [place] [address] [place] [address] Refill Request Social History Tobacco Use Types Packs/Day Years Used Date Smoking Tobacco: Former Cigarettes Q uit: 02/12/2021 Smokeless Tobacco: Never Alcohol Use Standard Drinks/Week Comments No 0 (1 standard drink = 0.6 oz pur e alcohol) PHQ-2 Answer Date Recorded PHQ-2 Score 5 10/01/2022 Sex and Gender Information Value Date Recorded Sex Assigned at Not on file Gender Identity Not on file Sexual Orientation Not on file COVID-19 Exposure Response Date Recorded In the last 10 days, have yo u been in contact with someone who was confirmed or suspected to have Coronavirus/COVID-19? No / Unsure 10/01/2022 9:05 AM CDT documented as of this encounter Plan of Treatment Upcoming Encounters Date Type Department Care Team (Late st Contact Info) Description 07/16/2023 3:30 PM MOUNTER BRASS WIND INSTRUMENTS Office Visit [place] [address] [place] [address] Shankar Peñaloza MD [address] [facility] [place] [address] 2023 3:00 PM MOUNTER BRASS WIND INSTRUMENTS Virtual Visit [facility] [address] [place] [address] 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, [facility] [address] [id number] 08/13/2023 2:30 PM MOUNTER BRASS WIND INSTRUMENTS Office Visit [facility] [address] [place] [address] [place] [address] [place] [address] documented as of this encounter Visit Diagnoses Diagnosis Fibromyalgia Mylagia and myositis, unspecified documented in this encounter Additional Health Concerns Assessment Noted Time PHQ-9 Depression Total Score: 17 022 7:09 AM MOUNTER BRASS WIND INSTRUMENTS documented as of this encounter Care Teams Footwear Stitcher Relationship Specialty Start Date End Date Shankar Peñaloza MD [address] [place] [address] [place] [address] PCP - General Internal Medicine 09/25/13 Navdeep Waldron MD [facility] [address] [place], [place] [id number] Physical Medicine & Rehabilitation - Pain Medicine 07/07/13 Shankar Peñaloza MD [address] [place] [address] [place] [address] Assigned PCP 07/22/16 Leeanna Joe MD [address] [place], [place] [address] Assigned Rheumatology Provider 04/22/21 10/18/22 Richardson Alberts PA-C [address] [place], [place] [address] Physician Wound Care Nurse Gastroenterology 03/01/22 Shankar Peñaloza MD [address] [place] [address] [place] [address] Assigned Pain Medication Provider 06/17/22 Marielena Sunshine PA-C [address] [facility] [address] [place] [address] Physician Wound Care Nurse Urology 10/03/22 Radha Rivas Personal Advocate & Liaison (PAL) 11/26/22 Marielena Sunshine PA-C [address] [facility] [facility] [place] [address] Assigned Surgical Provider 12/07/22 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 LICSW [address] [place] [address] Curve Cleaner Curve Cleaner - Clinical 06/23/23 documented as of this encounter
--- OUTSIDE RECORDS SUMMARY | 2023-07-02 14:28 | XMS_ITS | Encounter Summary ---
Author Name Unknown Organization [place] Address [address] [place] [address] Care Team Providers Care Paver Installer Name Role Phone Navdeep Waldron MD Unavailable [phone] Shankar Peñaloza MD Primary Care Provider [phone] Shankar Peñaloza MD Unavailable [phone] Richardson Alberts PA-C Unavailable Shankar Peñaloza MD Unavailable [phone] Marielena Sunshine PA-C Unavailable [phone] Encounter Details Date Type Department Care Team (Latest Contact Info) Description 11/05/2022 Travel Social History Tobacco Use Types Packs/Day [...] st Contact Info) Description 07/16/2023 3:30 PM STORE SALES LEADER Office Visit [facility] [place] [address] [place] [address] Drive [address] [place] [address] Shankar Peñaloza MD [address] [place] [address] [place] [address] 2023 3:00 PM STORE SALES LEADER Virtual Visit [facility] Health and Addiction [address] [place] [address] 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, [facility] [address] [place], [place] [phone] 08/13/2023 2:30 PM STORE SALES LEADER Office Visit [facility] [address] [place] [address] [place] [address] [place] [address] documented as of this encounter Visit Diagnoses Not on filedocumented in this encounter Additional Health Concerns Assessment Noted Time PHQ-9 Depression Total Score: 16 023 1:59 PM CDT documented as of this encounter Care Teams Paver Installer Relationship Specialty Start Date End Date Shankar Peñaloza MD [address] [place] [address] [place] [address] PCP - General Internal Medicine 09/25/13 Navdeep Waldron MD [facility] [address] [place] [address] Physical Medicine & Rehabilitation - Pain Medicine 07/07/13 Shankar Peñaloza MD [address] [place] [address] [place] [address] Assigned PCP 07/22/16 Richardson Alberts PA-C [address] [place] [address] Physician Girl Friday Gastroenterology 03/01/22 Shankar Peñaloza MD [address] [facility] [place] [address] Assigned Pain Medication Provider 06/17/22 Marielena Sunshine PA-C [address] [address] Physician Girl Friday Urology 10/03/22 documented as of this encounter
--- OUTSIDE RECORDS SUMMARY | 2023-07-02 14:28 | XMS_ITS | Encounter Summary ---
Author Name Unknown Organization [facility] Address [address] [place] [address]. [place] [address] Care Team Providers Care Physical Plant Manager Name Role Phone Navdeep Waldron MD Unavailable [phone] Shankar Peñaloza MD Primary Care Provider Shankar Peñaloza MD Unavailable [phone] Leeanna Joe MD Unavailable Richardson Alberts PA-C Unavailable [phone] Shankar Peñaloza MD Unavailable [phone] Reason for Referral * Consultation (Routine) - Closed Specialty Diagnoses / Procedures Referred By Contac t Referred To Contact Urology Diagnoses [place] [address] [place] [address] Referral ID Status Reason Start Date Expiration Date Visits Re quested Visits Authorized [id number] Closed 10/01/2022 10/01/2023 1 1 Question Answer Referral Type: Urology Reason for Referral: Incontinence Scheduling Instructions: [facility] to coordinate care as prescribed your provider. If you don? t hear from a retail service representative within 2 business days, please call . Comments Please be aware that coverage of these services is subject to the terms and limitations of your health insurance plan. Call member services at your health plan with any benefit or coverage questions. [facility] will call you to coordinate care as prescribed your provider. If you don? t hear from a retail service representative within 2 business days, please call . * Diagnostic Imaging Mammo (Routine) - Pending Review Specialty Diagnoses / Procedures Referred By Contac t Referred To Contact Radiology. Diagnoses Visit for screening mammogram Procedures MA SCREENING DIGITAL BILAT - Future (s+30) [place] [address] [place] [address] Referral ID Status Reason Start Date Expiration Date V isits Requested Visits Authorized [id number] Pending Review 10/01/2022 10/01/2023 1 1 Reason for Visit * Reason Comments Derm Problem Blemishes on chest a flynn. First noticed a few months ago. Notes some dryness, itchy. Incontinence Feels a little leaki ng. Would like to discuss tablets to change urine colors to assess for leakage. Encounter Details Date Type Department Care Team (Late st Contact Info) Description 10/01/2022 9:30 AM CDT Office Visit [facility] [address] [place] [address] [place] [address] [place], [place] [id number] Visit for screening mammogram (Primary Dx); Need for shingles vaccine; Female stress incontinence; Dermatitis; Antiphospholipid syndrome (H) Social History Tobacco Use [...] Sign Reading Time Taken Comments Blood Pressure 117/76 10/01/2022 9:11 AM CDT Pulse 96 10/01/2022 9:11 AM CDT Temperature 37 ??C (98.6 ??F) 10/01/2022 9:11 AM CDT Respiratory Rate 16 10/01/2022 9:11 AM CDT Oxygen Saturation 100% 10/01/2022 9:11 AM CDT Inhaled Oxygen Concentration - - Weight 84.8 kg (187 lb) 10/01/2022 9:11 AM CDT Height 168.9 cm (5' 6.5) 10/01/2022 9:11 AM CDT Body Mass Index 29.73 10/01/2022 9:11 AM CDT documented in this encounter Progress Notes * Ulises Tapia MD - 10/01/2022 9:30 AM CDT Assessment and Plan (Z12.31) Visit for screening mammogram (primary encounter diagnosis) Comment: Plan: MA SCREENING DIGITAL BILAT - Future (s+30) (N39.3) Female stress incontinence Comment: discussed Kegel exercises and she will try to be consistent with these. Refer for eval Plan: Adult Urology Java Android Developer Referral (L30.9) Dermatitis Comment: Plan: triamcinolone (KENALOG) 0.1 % external cream RTC in 6m CPE Ulises Tapia MD Subjective Genevieve is a 57 year old, presenting for the following health issues: Derm Problem (Blemishes on chest area. First noticed a few months ago. Notes some dryness, itchy.) and Incontinence (Feels a little leaking. Would like to discuss tablets to change urine colors to assess for leakage.) 10/01/2022 9:05 AM Additional Questions Roomed by Jyotsna Cuenca CMA Accompanied by self 10/01/2022 9:05 AM Patient Reported Additional Medications Patient reports taking the following new medications none History of Present Illness Reason for visit: Skin blemishes Symptom onset: More than a month She eats 2-3 servings of fruits and vegetables daily.She consumes 1 sweetened beverage(s) daily.Sheexercises with enough effort to increase her heart rate 10 to 19 minutes per day. She exercises with enough effort to increase her heart rate 4 days per week. She is taking medications regularly. Today's PHQ-9 PHQ-9 Total Score: 16 PHQ-9 Q9 Thoughts of better off /self-harm past 2 weeks : More than half the days Thoughts of suicide or self harm: (P) No Self-harm Plan: Self-harm Action: Safety concerns for self or others: (P) No How difficult have these problems made it for you to do your work, take care of things at home, or get along with other people: Somewhat difficult Several bumps across upper chest, has been present for about a year, would like them looked at. Abit dry and itchy, otherwise not bothersome. Wondering if she's have some incontinence. Unsure. Does have some stress incontinence, but this seems to be more frequent - noting smell of urine often. Does feel she can stop her urine stream. Review of Systems Constitutional: Negative. Gastrointestinal: Negative. Genitourinary: Positive for difficulty urinating. Negative for dysuria. Skin: Positive for rash. Objective BP 117/76 (BP Location: Right arm, Patient Position: Sitting, Cuff Size: Adult Large) Pulse 96 Temp 98.6 ??F (37 ??C) (Tympanic) Resp 16 Ht 1.689 m (5' 6.5) Wt 84.8 kg (187 lb) SpO2 100% BMI 29.73 kg/m?? Body mass index is 29.73 kg/m??. Physical Exam Vitals and nursing note reviewed. Constitutional: Appearance: Normal appearance. Skin: General: Skin is warm and dry. Comments: Scattered 2-3 mm scaled macules across upper chest. Several with excoriation. Neurological: General: No focal deficit present. Mental Status: She is alert and oriented to person, place, and time. Psychiatric: Mood and Affect: Mood normal. Behavior: Behavior normal. documented in this encounter Plan of Treatment Upcoming Encounters Date Type Department Care Team (Late st Contact Info) Description 07/16/2023 3:30 PM MED SPEC Office Visit [facility] [place] [address] [place] [address] Shankar Peñaloza MD [address] [facility] [place] [address] 2023 3:00 PM MED SPEC Virtual Visit [facility] [address] [place] [address] 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, [facility] [address] [place], [place] [id number] 08/13/2023 2:30 PM MED SPEC Office Visit [facility] [address] [place] [address] [place] [address] [place], [place] [id number] Scheduled Orders Name Type Priority Associated Diagnoses Orde r Schedule MA SCREENING DIGITAL BILAT - Future (s+30) Imaging Routine Visit for screening mammogram Expected: 10/01/2022 (Approximate), Expires: 10/02/2023 Scheduled Referrals Name Type Priority Associated Diagnoses Orde r Schedule Adult Urology Java Android Developer Referral Referral Routine Female stress incontinence Expected: 10/01/2022 (Approximate), Expires: 10/02/2023 documented as of this encounter Procedures Procedure Name Priority Date/Time Associated Diagnosis Comments FACTOR 10 CHROMOGENIC Routine 10/01/2022 9:54 AM CDT Antiphospholipid syndrome (H) documented in this encounter Results * (ABNORMAL) Factor 10 chromogenic (10/01/2022 9:54 AM CDT) Factor 10 Chromogenic 30(L) 70 - 130 % 10/01/2022 2:46 PM CDT [facility] Blood BLOOD SPECIMEN / Unknown Venipuncture / Unknown 10/01/2022 9:54 AM CDT 10/01/2022 9:54 AM CDT Narrative [facility] - 10/01/2022 2:46 PM CDT Therapeutic Range: ??A Chromogenic Factor 10 level of approximately 20-40% inversely correlates with an INR of 2-3 for patients receiving Warfarin. Chromogenic Factor 10 levels below 20% indicate an INR greater than 3 and levels above 40% indicate an INR less than 2. Jose Moore MD LAB - BLOOD ORDERABL ES [facility] [address] [facility], [address] [place] [address], [facility] [phone] documented in this encounter Visit Diagnoses Diagnosis Visit for screening mammogram- Primary Other screening mammogram Need for shingles vaccine Need for prophylactic vaccination and inoculation against varicella Female stress incontinence Dermatitis Contact dermatitis and other eczema, due to unspecified cause Antiphospholipid syndrome (H24) Primary hypercoagulable state documented in this encounter Additional Health Concerns Assessment Noted Time PHQ-9 Depression Total Score: 16 023 9:14 AM CDT documented as of this encounter Care Teams Physical Plant Manager Relationship Specialty Start Date End Date Shankar Peñaloza MD [address] [place] [address] [place] [address] PCP - General Internal Medicine 09/25/13 Navdeep Waldron MD [facility] [address] [place] [address] Physical Medicine & Rehabilitation - Pain Medicine 07/07/13 Shankar Peñaloza MD [address] [place] [address] [place] [address] Assigned PCP 07/22/16 Leeanna Joe MD [address] [place] [id number] Assigned Rheumatology Provider 04/22/21 10/18/22 Richardson Alberts PA-C [address] [place] [address] Physician Audit Consultant Gastroenterology 03/01/22 Shankar Peñaloza MD [address] [facility] [place] [address] Assigned Pain Medication Provider 06/17/22 documented as of this encounter
--- OUTSIDE RECORDS SUMMARY | 2023-07-02 14:28 | XMS_ITS | Encounter Summary ---
Author Name Unknown Organization [facility] Address [address] [place] [address] Care Team Providers Care Vp Human Resources Name Role Phone Navdeep Waldron MD Unavailable [phone] Shankar Peñaloza MD Primary Care Provider Shankar Peñaloza MD Unavailable [phone] Leeanna Joe MD Unavailable Richardson Alberts PA-C Unavailable [phone] Shankar Peñaloza MD Unavailable [phone] Reason for Visit * Reason Onset Date Comments Medication Question 08/30/2022 Hydromorphon e Encounter Details Date Type Department Care Team (Late st Contact Info) Description 08/30/2022 Telephone [facility] [place] [address] [place] [address] Verenice Estes PA-C [address] [facility] [place] [address] Medication Question (Hydromorphone) Social History Tobacco Use Types Packs/Day Years Used Date Smoking Tobacco: Former Cigarettes Q uit: 02/12/2021 Smokeless Tobacco: Never Alcohol Use Standard Drinks/Week Comments No 0 (1 standard drink = 0.6 oz pur e alcohol) PHQ-2 Answer Date Recorded PHQ-2 Total Score (Adult) - Positive if 3 or more points; Administer PHQ-9 if positive 6 05/27/2022 Sex and Gender Information Value Date Recorded Sex Assigned at Not on file Gender Identity Not on file Sexual Orientation Not on file documented as of this encounter Miscellaneous Notes * Telephone Encounter - Chantel Cao - 08/30/2022 1:55 PM CDT Fax received from [employer] Medication: Hydromorphone HCL 2MG TABLETS Message: Prescription shows both every 6 hours and every 4 hours - which of these two frequencies is correct? documented in this encounter Plan of Treatment Upcoming Encounters Date Type Department Care Team (Late st Contact Info) Description 07/16/2023 3:30 PM PHOTOGRAPHIC HAND DEVELOPER Office Visit [address] [place] [address] Shankar Peñaloza MD [address] [place] [address] [place] [address] 2023 3:00 PM PHOTOGRAPHIC HAND DEVELOPER Virtual Visit [facility] [address] [place] [address] 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, [address] [address] 08/13/2023 2:30 PM PHOTOGRAPHIC HAND DEVELOPER Office Visit [facility] [address] [place] [address] [place] [address] [place], [place] [phone] documented as of this encounter Visit Diagnoses Diagnosis Fibromyalgia Mylagia and myositis, unspecified documented in this encounter Additional Health Concerns Assessment Noted Time PHQ-9 Depression Total Score: 17 022 7:09 AM PHOTOGRAPHIC HAND DEVELOPER documented as of this encounter Care Teams Vp Human Resources Relationship Specialty Start Date End Date Shankar Peñaloza MD [address] [place] [address] [place] [address] PCP - General Internal Medicine 09/25/13 Navdeep Waldron MD [facility] [address] [place] [address] Physical Medicine & Rehabilitation - Pain Medicine 07/07/13 hSankar Peñaloza MD [address] [place] [address] [place] [address] Assigned PCP 07/22/16 Leeanna Joe MD [address] [place] [address] Assigned Rheumatology Provider 04/22/21 10/18/22 Richardson Alberts PA-C [address] [place] [address] Physician Mixing Machine Operator Gastroenterology 03/01/22 Shankar Peñaloza MD [address] [place] [address] [place] [address] Assigned Pain Medication Provider 06/17/22 documented as of this encounter
--- OUTSIDE RECORDS SUMMARY | 2023-07-02 14:28 | XMS_ITS | Encounter Summary ---
Author Name Unknown Organization [facility] Address [address] [place] [address]. [place] [address] Care Team Providers Care Keymodule Assembly Machine Tender Name Role Phone Navdeep Waldron MD Unavailable [phone] Shankar Peñaloza MD Primary Care Provider Shankar Peñaloza MD Unavailable [phone] Richardson Alberts PA-C Unavailable [phone] Shankar Peñaloza MD Unavailable [phone] Marielena Sunshine PA-C Unavailable Radha Rivas Unavailable Unavailable Reason for Visit * Reason Comments Incontinence Recurrent UTI's * Consultation (Routine) - Closed Specialty Diagnoses / Procedures Referred By Arlet felton Referred To Contact Urology Diagnoses [place] [address] [place] [address] Referral ID Status Reason Start Date Expiration Date Visits Re quested Visits Authorized [id number] Closed 10/01/2022 10/01/2023 1 1 Encounter Details Date Type Department Care Team (Late st Contact Info) Description 12/04/2022 1:00 PM CDT Virtual Visit [facility] [address] [place] [address] [place] [address] [place] [id number] Marielena Sunshine PA-C [address] [place] [address] Urinary incontinence, unspecified type (Primary Dx); Female stress incontinence; Recurrent UTI Social History Tobacco Use Types Packs/Day Years [...] Recorded In the last 10 days, have mayra u been in contact with someone who was confirmed or suspected to have Coronavirus/COVID-19? No / Unsure 11/05/2022 1:52 PM CDT documented as of this encounter Last Filed Vital Signs Vital Sign Reading Time Taken Comments Blood Pressure - - Pulse - - Temperature - - Respiratory Rate - - Oxygen Saturation - - Inhaled Oxygen Concentration - - Weight 81.6 kg (180 lb) 12/04/2022 12:56 PM CDT Height 170.2 cm (5' 7) 12/04/2022 12:56 PM CDT Body Mass Index 28.19 12/04/2022 12:56 PM CDT documented in this encounter Patient Instructions * Patient Instructions* Marielena Sunshine PA-C - 12/04/2022 1:00 PM CDT 1. Urinalysis and post void residual 2. If emptying, would recommend PT for urinary incontinence. 3. If not emptying, will need to consider timed voiding, double voiding, and intermittent catheterization. 4. Mycoplasma, Ureaplasma cultures 5. Hydrate with water to keep the urine dilute. (Already doing). 6. Lifestyle and hygiene modifications: wiping front to back, wearing cotton breathable underwear, voiding before and after intercourse to flush the urethra, minimizing baths and opting for showers, and appropriate perineal hygiene. 7. Below is a list of things that can irritate the bladder and should try to remove to see if it improves your symptoms: Caffeinated soft drinks. Coffee. Tea. Chocolate. Tomato-based foods. Acidic juices and fruits. (includes cranberry juice) Alcohol. Carbonated drinks. Aspartame/Nutrasweet (artificial sweeteners) Vitamin C supplements and citrus fruit Spicy food documented in this encounter Progress Notes * Marielena Sunshine PA-C - 12/04/2022 1:00 PM CDT PT WILL MEET IN [employer] Genevieve is a 57 year old who is being evaluated via a billable video visit. How would you like to obtain your AVS? MyChart If the video visit is dropped, the invitation should be resent by: Text to cell phone: [phone] Will anyone else be joining your video visit? No Video-Visit Details Type of service: Video Visit Video Start Time: 1302 Video End Time:1320 Originating Location (pt. Location): Home Distant Location (provider location): On-site Platform used for Video Visit: Tyrel CC: Recurrent UTIs HPI: Ms. Robb is a very pleasant 57 year old year old, , female seen in consultation today for recurrent UTIs. In her chart it notes that she has RA, but does not appear that she is on meds for this. Patient does not have diabetes. Over the last 6 months, she has had 3 urinary tract infections. She notes over the 2 to 3 years, she has had issues with recurrent urinary tract infections. She has a history of pyelonephritis, but this has not occurred in a very long time. No history of hospitalizations due to urinary tract infections. Her first urinary tract infection was in high school. She notes until the last several years, she had a long time without recurrent infections. Symptoms of urinary tract infection include dysuria, and small frequent voids. Most recent urine culture was obtained on 11/05/2022 and showed 10,000-50,000 CFU per mL of pansensitive E. coli. Patient does not always get cultures for her UTIs. She has previously trialed Azo and cranberry. Cranberryis no longer an option as she is on warfarin for antiphospholipid syndrome. She has had 5 episodes of blood clots. Patient also endorses concern with urinary incontinence. She will have significant hot flashes and sweats a lot. She will change her close, and even an hour later, she will feel damp and it smells like urine. She is also noted discoloration with Azo. Patient was told to start Kegels in September regarding her urinary symptoms. There was note of some difficulty with urination. At baseline, patient notes occasional dysuria, and stress incontinence. Shedoes feel like she empties her bladder completely. She drinks a significant amount of fluid and does not restrict fluids overnight. She denies distinctive symptoms of prolapse. She underwent a hysterectomy in 1997 or 1998. Patient notes that she has high fluid intake. She has 1 cup of coffee and typically large volumes of water. Yesterday she drink 160 ounces of water. She will only urinate sometimes 2 times per day. She does not have a strong sensation to urinate. No known history of nephrolithiasis. She notes that she has always had strong bladder. Denies constipation and she uses senna daily. He endorses anal fissure and hemorrhoids which are bothersome. The following portions of the patient's history were reviewed and updated as appropriate: allergies, current medications, past family history, past medical history, past social history, past surgicalhistory and problem list. Review of Systems Constitutional: Negative for chills and fever. Respiratory: Negative for shortness of breath. Cardiovascular: Negative for chest pain. Gastrointestinal: Negative for constipation, nausea and vomiting. Genitourinary: Positive for dysuria (Occasional). Negative for frequency, hematuria and urgency. Patient Active Problem List Diagnosis ??? CARDIOVASCULAR SCREENING; LDL GOAL LESS THAN 100 ??? Colitis ??? Anti-phospholipid antibody syndrome (H) ??? Chronic headaches ??? DDD (degenerative disc disease), cervical ??? Menopause ??? Rheumatoid arthritis (H) ??? Anxiety state ??? Personal history of DVT (deep vein thrombosis) ??? Insomnia ??? Hypertension ??? Esophageal reflux ??? Depression ??? Chronic pain syndrome ??? Vertigo ??? Jama's esophagus Past Medical History: Diagnosis Date ??? Anti-phospholipid antibody syndrome (H) ??? Chronic headache ??? Chronic pain ??? DVT (deep venous thrombosis) (H) Several - UE and LE ??? Fibromyalgia ??? Gout ??? History of thrombophlebitis ??? Mumps ??? Palpitations ??? PE (pulmonary embolism) ??? RA (rheumatoid arthritis) (H) ??? Serotonin syndrome 07/10/2012 Past Surgical History: Procedure Laterality Date ??? BREAST SURGERY Right 06/09/2005 Benign breast biopsy ??? CHOLECYSTECTOMY ??? ESOPHAGOSCOPY, GASTROSCOPY, DUODENOSCOPY (EGD), COMBINED N/A 06/05/2021 Procedure: ESOPHAGOGASTRODUODENOSCOPY, WITH BIOPSY with GE junction biopsies to rule out Barretts and random esophagus biopsies for eosinophillic esophagitis by cold biopsy forceps; Surgeon: Trip Cruz MD; Location: GI ??? QUALITATIVE FIELD PROJECT MANAGER SURGERY ??? HYSTERECTOMY, PAP NO LONGER INDICATED ??? VASCULAR SURGERY Social History: Former smoker. Family History: Family history of recurrent or chronic urinary tract infections in her sister. Family history of diabetes on her maternal and paternal side. GENERAL PHYSICAL EXAM: Vitals: Ht 1.702 m (5' 7) Wt 81.6 kg (180 lb) BMI 28.19 kg/m?? GENERAL: Healthy, alert and no distress EYES: Eyes grossly normal to inspection. No discharge or erythema, or obvious scleral/conjunctival abnormalities. HENT: Normal cephalic/atraumatic. External ears, nose and mouth without ulcers or lesions. No nasaldrainage visible. NECK: No asymmetry, visible masses or scars RESP: No audible wheeze, cough, or visible cyanosis. No visible retractions or increased work of breathing. MS: No gross musculoskeletal defects noted. Normal range of motion. No visible edema. SKIN: Visible skin clear. No significant rash, abnormal pigmentation or lesions. NEURO: Cranial nerves grossly intact. Mentation and speech appropriate for age. PSYCH: Mentation appears normal, affect normal/bright, judgement and insight intact, normal speech and appearance well-groomed. Urine - Recent Labs Lab Test 11/05/22 1413 05/18/22 1418 COLOR -- Yellow APPEARANCE -- Clear URINEGLC -- Negative URINEBILI -- Negative URINEKETONE -- 40* SG -- 1.015 UBLD -- Negative URINEPH -- 8.5* PROTEIN -- Negative UROBILINOGEN -- 0.2 NITRITE -- Negative LEUKEST -- Negative RBCU 0-2 -- WBCU 10-25* -- Most recent creatinine 1.04 EGFR 63. ASSESSMENT: 1. Urinary incontinence, unspecified type 2. Female stress incontinence 3. Recurrent UTI The fact that you have urinary tract infections does not imply that there is anything wrong with you or that you are causing them with bad hygiene. We now know that there is strong family history forurinary tract infections due to some tissue markers allow for adherence of bacteria to the bladder lining. In addition we also know that urinary tract infections tend to cluster together. That means that the most likely time to get one is right after you have cleared one. That does not mean that we would use antibiotics in order to reduce your risk. This is called antibiotic prophylaxis, and we now know that it markedly increases the risk of multiple resistant bacteria. This means the next time you get an infection, that infection will be resistant to the antibioticthat you have been using. We will often do an anatomic evaluation for recurrent urinary tract infections which will typicallyinclude CT urogram and cystoscopy (scope with your bladder). If concern for pyelonephritis, we often will do VCUG. We discussed the anatomic evaluation often does not find any cause for urinary tractinfections. We may be able to reduce urinary tract infections, but we are unable to cure them. We also discussed her urination and possible urinary incontinence. I do have some concern that she is not adequately emptying her bladder, given the volume of fluid that she ingests and that sometimes she only urinates 2 times per day. Does sound that she may have been an atypical voider previously. Treatment for urge incontinence include avoiding bladder irritants, biofeedback bladder retraining,overactive bladder medications like anticholinergics or beta 3 agonist, posterior tibial nerve stimulation (PTNS), Botox (which would require learning to perform clean intermittent catheterization and place it works too well), implantable device like Axonics or InterStim, or possible urinary diversi on. We also briefly discussed stress incontinence treatment options including Kegel exercises/biofeedback bladder retraining, pessary, Poise Impressa, Revive, Estim/Urostym, sling, and bulking agents. PLAN: UA/UC PVR Mycoplasma, Ureaplasma Bladder irritant list provided Hydrate. (Already doing) - Lifestyle and hygiene modifications were reviewed today in clinic, including wiping front to back, wearing cotton breathable underwear, voiding before and after intercourse to flush the urethra, minimizing baths and opting for showers, and appropriate perineal hygiene. Push fluids to keep the urine dilute -If patient is emptying adequately, would recommend referral to pelvic floor physical therapy to help with urinary incontinence. -If patient is not emptying adequately, would recommend timed and prompted voiding with intentionaldouble voiding, possible PT, and possibly clean intermittent catheterization depending upon the degree of urinary retention. -May need possible voiding diary in the future. Possible options in the future for UTI prevention: Probiotics Prebiotics Ellura or TheraCran--Not an option due to warfarin usage Gentamicin irrigations Vegan diet D-Mannose ID consult Estrace cream 3 x per week q HS-could trial with caution Hiprex 1000mg BID Vitamin C 1000mg BID CT Urogram Cysto with first available urologist Marielena Sunshine PA-C [facility] [phone] documented in this encounter Nursing Notes * Jana Sagastume EMT - 12/04/2022 1:00 PM CDT Chief Complaint Patient presents with ??? Incontinence ??? Recurrent UTI's Pt states she has hot flashes and sweats a lot and feels damp but she is unsure if it is sweat orurine. Denies gross hematuria, dysuria Pt also states she has had 3 UTI's in the past 6 months. LAUREN Abad documented in this encounter Plan of Treatment Upcoming Encounters Date Type Department Care Team (Late st Contact Info) Description 07/16/2023 3:30 PM ANIMAL RIDES MANAGER Office Visit [address] [place] [address] Shankar Peñaloza MD [address] [facility] [place] [id number] 2023 3:00 PM ANIMAL RIDES MANAGER Virtual Visit [facility] [address] [place] [address] 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, [facility] [address] [place], [place] [id number] 08/13/2023 2:30 PM ANIMAL RIDES MANAGER Office Visit [facility] [address] [place] [address] [place] [address] [place] [address] Scheduled Orders Name Type Priority Associated Diagnoses Orde r Schedule UA without Microscopic [[id number]] Lab Routine Urinary incontinence, unspecified type Recurrent UTI Expected: 12/04/2022 (Approximate), Expires: 12/05/2023 MEASURE POST-VOID RESIDUAL URINE/BLADDER CAPACITY, US NON-IMAGING ([id number]) Procedures Routine Urinary incontinence, unspecified type Female stress incontinence Recurrent UTI Expected: 12/05/2022 (Approximate), Expires: 12/05/2023 documented as of this encounter Visit Diagnoses Diagnosis Urinary incontinence, unspecified type- Primary Female stress incontinence Recurrent UTI Urinary tract infection, site not specified documented in this encounter Additional Health Concerns Assessment Noted Time PHQ-9 Depression Total Score: 16 023 1:59 PM CDT documented as of this encounter Care Teams Keymodule Assembly Machine Tender Relationship Specialty Start Date End Date Shankar Peñaloza MD [address] [place] [address] [place] [address] PCP - General Internal Medicine 09/25/13 Navdeep Waldron MD [facility] [address] [place] [address] Physical Medicine & Rehabilitation - Pain Medicine 07/07/13 Shankar Peñaloza MD [address] [place] [address] [place] [address] Assigned PCP 07/22/16 Richardson Alberts PA-C [address] [place] [address] Physician Oil And Gas Field Technician Gastroenterology 03/01/22 Shankar Peñaloza MD [address] [place] [address] [place] [address] Assigned Pain Medication Provider 06/17/22 Marielena Sunshine PA-C [address] [facility] [address] [place] [address] Physician Oil And Gas Field Technician Urology 10/03/22 Radha Rivas Personal Advocate & Liaison (PAL) 11/26/22 documented as of this encounter
--- OUTSIDE RECORDS SUMMARY | 2023-07-02 14:28 | XMS_ITS | Encounter Summary ---
Author Name Unknown Organization [facility] Address [address] [place] [address] Care Team Providers Care Hotel Custodian Name Role Phone Navdeep Waldron MD Unavailable [phone] Shankar Peñaloza MD Primary Care Provider Shankar Peñaloza MD Unavailable [phone] Richardson Alberts PA-C Unavailable [phone] Shankar Peñaloza MD Unavailable [phone] Marielena Sunshine PA-C Unavailable Reason for Visit * Reason Comments UTI Entered automaticall y based on patient selection in Porphyriohart. Encounter Details Date Type Department Care Team ([facility] st Contact Info) Description 10/23/2022 1:35 PM CDT E-Visit [facility] [address] [place] [phone] Jose E Gloria, PA-C [address] [place] [id number] UTI (Entered automatically based on patien... Social History Tobacco Use Types Packs/Day Years [...] AM CDT documented as of this encounter Patient Instructions * Patient Instructions* Jose E Gloria PA-C - 10/23/2022 1:35 PM CDT Dear Anabel Robb After reviewing your responses, I've been able to diagnose you with a urinary tract infection, which is a common infection of the bladder with bacteria. This is not a sexually transmitted infection, though urinating immediately after intercourse can help prevent infections. Drinking lots of fluids is also helpful to clear your current infection and prevent the next one. I have sent a prescription for antibiotics to your pharmacy to treat this infection. It is important that you take all of your prescribed medication even if your symptoms are improvingafter a few doses. Taking all of your medicine helps prevent the symptoms from returning. If your symptoms worsen, you develop pain in your back or stomach, develop fevers, or are not improving in 5 days, please contact your primary care provider for an appointment or visit any of our convenient Walk-in or Urgent Care Centers to be seen, which can be found on our website here. Thanks again for choosing us as your health patient care technician instructor, Jose E Randhawa. KARMA Gloria documented in this encounter Miscellaneous Notes * Telephone Encounter - Jose E Gloria PA-C - 10/23/2022 1:43 PM CDT Provider E-Visit time total (minutes): 3 documented in this encounter Plan of Treatment Upcoming Encounters Date Type Department Care Team (Late st Contact Info) Description 07/16/2023 3:30 PM HOSPICE SUPERINTENDENT Office Visit [facility]isha [address] [facility] [address] [place] [address] Shankar Peñaloza MD [address] [facility] [place] [address] 2023 3:00 PM HOSPICE SUPERINTENDENT Virtual Visit [facility] Mental Health and Addiction [address] [place] [address] 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, [facility] [address] [place] [address] 08/13/2023 2:30 PM HOSPICE SUPERINTENDENT Office Visit [facility] [address] [place] [phone] [place] [address] [place] [address] documented as of this encounter Visit Diagnoses Diagnosis Acute UTI (urinary tract infection)- Primary Urinary tract infection, site not specified documented in this encounter Additional Health Concerns Assessment Noted Time PHQ-9 Depression Total Score: 16 023 9:14 AM CDT documented as of this encounter Care Teams Hotel Custodian Relationship Specialty Start Date End Date Shankar Peñaloza MD [address] [place] [address] [place] [address] PCP - General Internal Medicine 09/25/13 Navdeep Waldron MD [facility] [address] [place] [address] Physical Medicine & Rehabilitation - Pain Medicine 07/07/13 Shankar Peñaloza MD [address] [place] [address] [place] [address] Assigned PCP 07/22/16 Richardson Alberts PA-C [address] [place] [address] Physician Electrical And Radio Aircraft Mechanic Gastroenterology 03/01/22 Shankar Peñaloza MD [address] [facility] [place] [address] Assigned Pain Medication Provider 06/17/22 Marielena Sunshine PA-C [address] [address] Physician Electrical And Radio Aircraft Mechanic Urology 10/03/22 documented as of this encounter
--- OUTSIDE RECORDS SUMMARY | 2023-07-02 14:28 | XMS_ITS | Encounter Summary ---
Author Name Unknown Organization [facility] Address [address] [place] [address] Care Team Providers Care Program Planner Name Role Phone Navdeep Waldron MD Unavailable [phone] Shankar Peñaloza MD Primary Care Provider Shankar Peñaloza MD Unavailable [phone] Richardson Alberts PA-C Unavailable [phone] Shankar Peñaloza MD Unavailable [phone] Marielena Sunshine PA-C Unavailable Reason for Visit * Reason Onset Date Comments Refill Request 10/31/2022 Encounter Details Date Type Department Care Team (Late st Contact Info) Description 10/31/2022 MyC [facility] Keisha [address] [place] [address] Drive [address] [place] [address] Shankar Peñaloza MD [address] [place] [address] [place] [address] Refill Request Social History [...] Contact Info) Description 07/16/2023 3:30 PM SALES AND MARKETING DIRECTOR Office Visit [facility] [address] [facility] [address] [place] [address] Shankar Peñaloza MD [address] [place] [address] [place] [address] 2023 3:00 PM SALES AND MARKETING DIRECTOR Virtual Visit [facility] Mental Health and Addiction [address] [place] [address] 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, [facility] [address] [place] [address] 08/13/2023 2:30 PM SALES AND MARKETING DIRECTOR Office Visit [facility] [address] [place] [phone] [place] [address] [place] [address] documented as of this encounter Visit Diagnoses Diagnosis Fibromyalgia Mylagia and myositis, unspecified documented in this encounter Additional Health Concerns Assessment Noted Time PHQ-9 Depression Total Score: 16 023 9:14 AM CDT documented as of this encounter Care Teams Program Planner Relationship Specialty Start Date End Date Shankar Peñaloza MD [address] [place] [address] [place] [address] PCP - General Internal Medicine 09/25/13 Navdeep Waldron MD [facility] [address] [place] [address] Physical Medicine & Rehabilitation - Pain Medicine 07/07/13 Shankar Peñaloza MD [address] [facility] [place] [address] Assigned PCP 07/22/16 Richardson Alberts PA-C [address] [place] [address] Physician Safety Assistant Gastroenterology 03/01/22 Shankar Peñaloza MD [address] [facility] [place] [address] Assigned Pain Medication Provider 06/17/22 Marielena Sunshine PA-C [address] [facility] [address] [place], [place] [address] Physician Safety Assistant Urology 10/03/22 documented as of this encounter
--- OUTSIDE RECORDS SUMMARY | 2023-07-02 14:28 | XMS_ITS | Encounter Summary ---
Author Name Unknown Organization [facility] Address [address] [place] [address] Care Team Providers Care Headhunter Name Role Phone Navdeep Waldron MD Unavailable [phone] Shankar Peñaloza MD Primary Care Provider [phone] Shankar Peñaloza MD Unavailable [phone] Leeanna Joe MD Unavailable Richardson Alberts PA-C Unavailable [phone] Shankar Peñaloza MD Unavailable [phone] Encounter Details Date Type Department Care Team (Latest Contact Info) Description 10/01/2022 Travel Social History Tobacco Use Types Packs/Day [...] st Contact Info) Description 07/16/2023 3:30 PM TALLOW MAKER Office Visit [facility] Keisha [address] [place] [address] Drive [address] [place] [address] Shankar Peñaloza MD [address] [place] [address] [place] [address] 2023 3:00 PM TALLOW MAKER Virtual Visit [facility] [address] [place] [address] 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, [facility] [address] [phone] 08/13/2023 2:30 PM TALLOW MAKER Office Visit [facility] [address] [place] [address] [place] [address] [place], [place] [phone] documented as of this encounter Visit Diagnoses Not on filedocumented in this encounter Additional Health Concerns Assessment Noted Time PHQ-9 Depression Total Score: 16 023 9:14 AM CDT documented as of this encounter Care Teams Headhunter Relationship Specialty Start Date End Date Shankar Peñaloza MD [address] [place] [address] [place] [address] PCP - General Internal Medicine 09/25/13 Navdeep Waldron MD [facility] [address] [place] [address] Physical Medicine & Rehabilitation - Pain Medicine 07/07/13 Shankar Peñaloza MD [address] [place] [address] [place] [address] Assigned PCP 07/22/16 Leeanna Joe MD [address] [place], [place] 7859[address] Assigned Rheumatology Provider 04/22/21 10/18/22 Richardson Alberts PA-C [address] [place] [address] Physician Customer Account Specialist Gastroenterology 03/01/22 Shankar Peñ[place] [address] [place] [address] [place] [address] Assigned Pain Medication Provider 06/17/22 documented as of this encounter
--- OUTSIDE RECORDS SUMMARY | 2023-07-02 14:28 | XMS_ITS | Encounter Summary ---
Author Name Unknown Organization [facility] Address [address] [place] [address] Care Team Providers Care Research Soil Scientist Name Role Phone Navdeep Waldron MD Unavailable [phone] Shankar Peñaloza MD Primary Care Provider Shankar Peñaloza MD Unavailable [phone] Richardson Alberts PA-C Unavailable [phone] Shankar Peñaloza MD Unavailable [phone] Marielena Sunshine PA-C Unavailable [phone] Reason for Visit * Reason Comments Medication Refill Encounter Details Date Type Department Care Team (Late st Contact Info) Description 11/02/2022 Refill M [facility] Keisha [address] [place] [address] Drive [address] [place] [address] Shankar Peñaloza MD [address] [place] [address] [place] [address] Medication Refill Social History Tobacco Use Types [...] st Contact Info) Description 07/16/2023 3:30 PM SHIPPING HAND [facility] [address] [address] [facility] [address] [place] [address] Shankar Peñ[place]za [place] [address] [place] [address] [place] [address] 2023 3:00 PM SHIPPING HAND Virtual Visit [facility] [address] [place] [address] 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, [facility] [address] [place] [address] 08/13/2023 2:30 PM SHIPPING HAND Office Visit [facility] [address] [place] [address] [place] [address] [place] [address] documented as of this encounter Visit Diagnoses Diagnosis Primary insomnia Persistent disorder of initiating or maintaining sleep documented in this encounter Additional Health Concerns Assessment Noted Time PHQ-9 Depression Total Score: 16 023 9:14 AM CDT documented as of this encounter Care Teams Research Soil Scientist Relationship Specialty Start Date End Date Shankar Peñaloza MD [address] [place] [address] [place] [address] PCP - General Internal Medicine 09/25/13 Navdeep Waldron MD [facility] [address] [place] [address] Physical Medicine & Rehabilitation - Pain Medicine 07/07/13 Shankar Peñaloza MD [address] [facility] [place] [address] Assigned PCP 07/22/16 Richardson Alberts PA-C [address] [place] [address] Physician High Value Associate Gastroenterology 03/01/22 Shankar Peñaloza MD [address] [facility] [place] [address] Assigned Pain Medication Provider 06/17/22 Marielena Sunshine PA-C [address] [address] Physician High Value Associate Urology 10/03/22 documented as of this encounter
--- OUTSIDE RECORDS SUMMARY | 2023-07-02 14:28 | XMS_ITS | Encounter Summary ---
Author Name Unknown Organization [facility] Address [address] [place] [address] Care Team Providers Care Mechanical Maintenance Supervisor Name Role Phone Navdeep Waldron MD Unavailable [phone] Shankar Peñaloza MD Primary Care Provider Shankar Peñaloza MD Unavailable [phone] Leeanna Joe MD Unavailable Richardson Alberts PA-C Unavailable [phone] Shankar Peñaloza MD Unavailable [phone] Encounter Details Date Type Department Care Team (Late st Contact Info) Description 10/02/2022 Orders Only [facility] Laboratory [address] [place] [address] Jose Moore MD PA ONCOLOGY [address] [facility] [address] [place] [address] Anti-phospholipid syndrome (H) (Primary Dx) Social History Tobacco Use [...] st Contact Info) Description 07/16/2023 3:30 PM KEY ENTRY OPERATOR Office Visit [facility] [place] [address] [place] [address] Shankar Peñaloza MD [address] [facility] [place] [id number] 2023 3:00 PM KEY ENTRY OPERATOR Virtual Visit [facility] [address] [place] [address] 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, [facility] [address] [place] [address] 08/13/2023 2:30 PM KEY ENTRY OPERATOR Office Visit [facility] [address] [place] [phone] [place] [address] [place], [place] [phone] documented as of this encounter Results * (ABNORMAL) Factor 10 chromogenic (11/05/2022 2:46 PM CDT) Factor 10 Chromogenic 25(L) 70 - 130 % 11/06/2022 9:21 AM CDT [facility] Blood BLOOD SPECIMEN / Unknown Venipuncture / Unknown 11/05/2022 2:46 PM CDT 11/05/2022 2:46 PM CDT Narrative [facility] - 11/06/2022 9:21 AM CDT Therapeutic Range: ??A Chromogenic Factor 10 level of approximately 20-40% inversely correlates with an INR of 2-3 for patients receiving Warfarin. Chromogenic Factor 10 levels below 20% indicate an INR greater than 3 and levels above 40% indicate an INR less than 2. Jose Moore MD LAB - BLOOD ORDERABL ES [facility] [address] Building, Room 3-580 [place] [address], [facility] [phone] documented in this encounter Visit Diagnoses Diagnosis Anti-phospholipid syndrome (H24)- Primary Primary hypercoagulable state documented in this encounter Additional Health Concerns Assessment Noted Time PHQ-9 Depression Total Score: 16 023 9:14 AM CDT documented as of this encounter Care Teams Mechanical Maintenance Supervisor Relationship Specialty Start Date End Date Shankar Peñaloza MD [address] [facility] [place] [address] PCP - General Internal Medicine 09/25/[address] [facility] [address] [place] [address] Physical Medicine & Rehabilitation - Pain Medicine 07/07/13 Shankar Peñaloza MD [address] [address] [place] [address] Assigned PCP 07/22/16 Leeanna Joe MD 400 [place], [place] 42[address] Assigned Rheumatology Provider 04/22/21 10/18/22 Richardson Alberts PA-C [address] [place] [address] Physician Nanotechnology Technician Gastroenterology 03/01/22 Shankar Peñaloza MD [address] [facility] [address] [place], [place] [address] Assigned Pain Medication Provider 06/17/22 documented as of this encounter
--- OUTSIDE RECORDS SUMMARY | 2023-07-02 14:28 | XMS_ITS | Encounter Summary ---
Author Name Unknown Organization [facility] Address [address] [place] [address] Care Team Providers Care Rotogravure Press Operator Name Role Phone Navdeep Waldron MD Unavailable [phone] Shankar Peñaloza MD Primary Care Provider Shankar Peñaloza MD Unavailable [phone] Richardson Alberts PA-C Unavailable [phone] Shankar Peñaloza MD Unavailable [phone] Marielena Sunshine PA-C Unavailable [phone] Reason for Visit * Reason Comments UTI Entered [facility]all y [facility] Encounter Details Date Type Department Care Team ([facility] st Contact Info) Description 11/05/2022 2:30 AM CDT E-Visit [facility] [address] [place] [address] Jose E Gloria, PA-C [address] [place] [address] UTI (Entered automatically based on patien... [...] Patient Instructions* Jose E Gloria PA-C - 11/05/2022 2:30 AM CDT Dear Anabel Robb, We are sorry you are not feeling well. Based on the responses you provided, it is recommended that you be seen in-person in urgent care so we can better evaluate your symptoms. Please click here to find the nearest urgent care location to you. You will not be charged for this Visit. Thank you for trusting us with your care. Jose E Gloria PA-C documented in this encounter Miscellaneous Notes * Telephone Encounter - Jose E Gloria PA-C - 11/05/2022 6:37 AM CDT Provider E-Visit time total (minutes): 3 documented in this encounter Plan of Treatment Upcoming Encounters Date Type Department Care Team (Late st Contact Info) Description 07/16/2023 3:30 PM SATELLITE MANAGER Office Visit [facility] [address] [place] [address] Shankar Peñaloza MD [address] [place] [address] [place] [address] 2023 3:00 PM SATELLITE MANAGER Virtual Visit [facility] [address] [place] [address] 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, [facility] [address] [address] 08/13/2023 2:30 PM SATELLITE MANAGER Office [facility] [address] [place] [address] [place] [address] [facility] [place] [address] documented as of this encounter Visit Diagnoses Diagnosis Dysuria- Primary documented in this encounter Additional Health Concerns Assessment Noted Time PHQ-9 Depression Total Score: 16 023 1:59 PM CDT documented as of this encounter Care Teams Rotogravure Press Operator Relationship Specialty Start Date End Date Shankar Peñaloza MD [address] [place] [address] [place] [address] PCP - General Internal Medicine 09/25/13 Navdeep Waldron MD [facility] [address] [place] [address] Physical Medicine & Rehabilitation - Pain Medicine 07/07/13 Shankar Peñaloza MD [address] [place] [address] [place] [address] Assigned PCP 07/22/16 Richardson Alberts PA-C [address] [place] [address] Physician Vegetable Loader Gastroenterology 03/01/22 Shankar Peñaloza MD [address] [place] [address] [place] [address] Assigned Pain Medication Provider 06/17/22 Marielena Sunshine PA-C [address] [facility] [address] [place] [address] Physician Vegetable Loader Urology 10/03/22 documented as of this encounter
--- OUTSIDE RECORDS SUMMARY | 2023-07-02 14:28 | XMS_ITS | Encounter Summary ---
Author Name Unknown Organization [place] Address [address] [place] [address] Care Team Providers Care Tool Repairer Bench Name Role Phone Navdeep Waldron MD Unavailable [phone] Shankar Peñaloza MD Primary Care Provider Shankar Peñaloza MD Unavailable [phone] Leeanna Joe MD Unavailable Richardson Alberts PA-C Unavailable [phone] Shankar Peñaloza MD Unavailable [phone] Reason for Visit * Reason Onset Date Comments Refill Request 09/30/2022 Encounter Details Date Type Department Care Team (Late st Contact Info) Description 09/30/2022 MyC Refill M [facility] Keisha [address] [place] [address] Verenice Estes PA-C [address] [facility] [place] [address] Refill Request Social History [...] st Contact Info) Description 07/16/2023 3:30 PM INTERIOR DESIGNER [facility] [address] [place] [address] Shankar Peñaloza MD [address] [facility] [place] [address] 2023 3:00 PM INTERIOR DESIGNER Virtual Visit [facility] [address] [place] [address] 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, [facility] [address] [place], [place] [id number] 08/13/2023 2:30 PM INTERIOR DESIGNER Office Visit [facility] [address] [place] [address] [place] [address] [place] [address] documented as of this encounter Visit Diagnoses Diagnosis Fibromyalgia Mylagia and myositis, unspecified documented in this encounter Additional Health Concerns Assessment Noted Time PHQ-9 Depression Total Score: 17 022 7:09 AM INTERIOR DESIGNER documented as of this encounter Care Teams Tool Repairer Bench Relationship Specialty Start Date End Date Shankar Peñaloza MD [address] [place] [address] [place] [address] PCP - General Internal Medicine 09/25/13 Navdeep Waldron MD [facility] [address] [place] [address] Physical Medicine & Rehabilitation - Pain Medicine 07/07/13 Shankar Peñaloza MD [address] [place] [address] [place] [address] Assigned PCP 07/22/16 Leeanna Joe MD [address] [place] [address] Assigned Rheumatology Provider 04/22/21 10/18/22 Richardson Alberts PA-C [address] [facility] [place] [address] Physician Hoisting Laborer Gastroenterology 03/01/22 Shankar Peñaloza MD [address] [place] [address] [place] [address] Assigned Pain Medication Provider 06/17/22 documented as of this encounter
--- OUTSIDE RECORDS SUMMARY | 2023-07-02 14:28 | XMS_ITS | Encounter Summary ---
Author Name Unknown Organization [facility] Address [address] [place] [address] Care Team Providers Care Counter Top Maker Name Role Phone Navdeep Waldron MD Unavailable [phone] Shankar Peñaloza MD Primary Care Provider Shankar Peñaloza MD Unavailable [phone] Richardson Alberts PA-C Unavailable [phone] Shankar Peñaloza MD Unavailable [phone] Marielena Sunshine PA-C Unavailable Radha Rivas Unavailable Unavailable Marielena Sunshine PA-C Unavailable 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 [facility] Unavailable Encounter Details Date Type Department Care Team (Late st Contact Info) Description 10/28/2022 Marco Antonio Feliz [facility] Keisha [address] [place] [address] Shankar Peñaloza MD [address] [facility] [place] [address] Social History Tobacco [...] st Contact Info) Description 07/16/2023 3:30 PM FILTER WASHER Office Visit [address] [place] [address] Shankar Peñaloza MD [address] [place] [address] [place] [address] 2023 3:00 PM FILTER WASHER Virtual Visit [facility] [address] [place] [address] 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, [facility] [address] [place] [address] 08/13/2023 2:30 PM FILTER WASHER Office Visit [facility] [address] [place] [address] [place] [address] [place], [place] [phone] documented as of this encounter Visit Diagnoses Not on filedocumented in this encounter Additional Health Concerns Assessment Noted Time PHQ-9 Depression Total Score: 16 023 9:14 AM CDT documented as of this encounter Care Teams Counter Top Maker Relationship Specialty Start Date End Date Shankar Peñaloza MD [address] [place] [address] [place] [address] PCP - General Internal Medicine 09/25/13 Navdeep Waldron MD [facility] [address] [place] [address] Physical Medicine & Rehabilitation - Pain Medicine 07/07/13 Shankar Peñaloza MD [facility] [place] [address] Assigned PCP 07/22/16 Richardson Alberts PA-C [address] [place] [address] Physician Pigment Mixer Gastroenterology 03/01/22 Shankar Peñaloza MD [address] [place] [address] [place] [address] Assigned Pain Medication Provider 06/17/22 Marielena Sunshine PA-C [address] [facility] [address] [place] [address] Physician Pigment Mixer Urology 10/03/22 Radha Rivas Personal Advocate & Liaison (PAL) 11/26/22 Marielena Sunshine PA-C [address] [facility] 500 [place], [place] [address] Assigned Surgical Provider 12/07/22 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 [facility] [address] [place] [address] Mental Health Clinician Mental Health Clinician - Clinical 06/23/23 documented as of this encounter
--- OUTSIDE RECORDS SUMMARY | 2023-07-02 14:28 | XMS_ITS | Encounter Summary ---
Author Name Unknown Organization [facility] Address [address] [place] [address] Care Team Providers Care Environmental Science Technician Name Role Phone Navdeep Waldron MD Unavailable [phone] Shankar Peñaloza MD Primary Care Provider Shankar Peñaloza MD Unavailable [phone] Richardson Alberts PA-C Unavailable [phone] Shankar Pñealoza MD Unavailable [phone] Marielena Sunshine PA-C Unavailable Encounter Details Date Type Department Care Team (Late st Contact Info) Description 11/08/2022 Orders Only [facility] [address] [place] [address] Jose Moore MD [place] ONCOLOGY [address] [facility] 200 [place] [address] Antiphospholipid syndrome (H) (Primary Dx) Social History Tobacco [...] st Contact Info) Description 07/16/2023 3:30 PM BULLDOZER PRESS OPERATOR Office Visit [place] [address] [facility] [address] [place] [address] Shankar Peñaloza MD [address] [place] [address] [place] [address] 2023 3:00 PM BULLDOZER PRESS OPERATOR Virtual Visit [facility] [address] [place] [address] 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, [facility] [address] [place] [address] 08/13/2023 2:30 PM BULLDOZER PRESS OPERATOR Office Visit [facility] [address] [place] [phone] [place] [address] [place] [address] documented as of this encounter Visit Diagnoses Diagnosis Antiphospholipid syndrome (H24)- Primary Primary hypercoagulable state documented in this encounter Additional Health Concerns Assessment Noted Time PHQ-9 Depression Total Score: 16 023 1:59 PM CDT documented as of this encounter Care Teams Environmental Science Technician Relationship Specialty Start Date End Date Shankar Peñaloza MD [address] [place] [address] [place] [address] PCP - General Internal Medicine 09/25/13 Navdeep Waldron MD [facility] [address] [place] [address] Physical Medicine & Rehabilitation - Pain Medicine 07/07/13 Shankar Peñaloza MD [address] [facility] [place] [address] Assigned PCP 07/22/16 Richardson Alberts PA-C [address] [place] [address] Physician Spooling Machine Operator Gastroenterology 03/01/22 Shankar Peñaloza MD [address] [facility] [place] [address] Assigned Pain Medication Provider 06/17/22 Marielena Sunshine PA-C [address] [facility] [address] [place], [place] [address] Physician Spooling Machine Operator Urology 10/03/22 documented as of this encounter
--- OUTSIDE RECORDS SUMMARY | 2023-07-02 14:28 | XMS_ITS | Encounter Summary ---
Author Name Unknown Organization [place] Address [address] [place] [address]. [place] [address] Care Team Providers Care Surgical Training Specialist Name Role Phone Navdeep Waldron MD Unavailable [phone] Shankar Peñaloza MD Primary Care Provider Shankar Peñaloza MD Unavailable [phone] Richardson Alberts PA-C Unavailable [phone] Shankar Peñaloza MD Unavailable [phone] Marielena Sunshine PA-C Unavailable Reason for Visit * Reason Comments UTI Follow Up Encounter Details Date Type Department Care Team (Late st Contact Info) Description 11/05/2022 2:30 PM CDT Office Visit [facility] [address] [place] [address] Jessee Roque PA-C [address] [place] [address] Acute cystitis without hematuria (Primary Dx); Dysuria; Rheumatoid arthritis involving multiple sites, unspecified whether rheumatoid factor present (H); Major depressive disorder, recurrent episode, mild (H) Social History Tobacco Use Types Packs/Day [...] Sign Reading Time Taken Comments Blood Pressure 124/80 11/05/2022 2:09 PM CDT aut o Pulse 86 11/05/2022 2:06 PM CDT Temperature 37.2 ??C (99 ??F) 11/05/2022 2:06 PM CDT Respiratory Rate 15 11/05/2022 2:06 PM CDT Oxygen Saturation 96% 11/05/2022 2:06 PM CDT Inhaled Oxygen Concentration - - Weight 84.5 kg (186 lb 3.2 oz) 11/05/2022 2:06 P M CDT Height 168 cm (5' 6.14) 11/05/2022 2:06 PM CDT Body Mass Index 29.92 11/05/2022 2:06 PM CDT documented in this encounter Patient Instructions * Patient Instructions* Jessee Roque PA-C - 11/05/2022 2:30 PM CDT National Suicide Prevention Lifeline [phone] The [facility] Crisis Response Unit (CRU) provides 24-hour phone and [id number] crisis intervention and consultation. Call [phone] documented in this encounter Progress Notes * Jessee Roque PA-C - 11/05/2022 2:30 PM CDT Assessment & Plan Acute cystitis without hematuria Will treat with augmentin as this has worked in the past for her. - amoxicillin-clavulanate (AUGMENTIN) 875-125 MG tablet; Take 1 tablet by mouth 2 times daily for 10 days Dysuria Checking labs. - UA reflex to Microscopic - lab collect; Future - Urine Microscopic Exam - Urine Culture Aerobic Bacterial - lab collect Major depressive disorder, recurrent episode, mild (H) Follow up with PCP- PHQ is elevated. BMI: Estimated body mass index is 29.92 kg/m?? as calculated from the following: Height as of this encounter: 1.68 m (5' 6.14). Weight as of this encounter: 84.5 kg (186 lb 3.2 oz). Weight management plan: Discussed healthy diet and exercise guidelines Depression Screening Follow Up 11/05/2022 1:55 PM PHQ PHQ-9 Total Score 16 Q9: Thoughts of better off /self-harm past 2 weeks More than half the days F/U: Thoughts of suicide or self-harm No F/U: Safety concerns No Follow Up Follow Up Actions Taken Crisis resource information provided in the After Visit Summary Patient to follow up with PCP. Clinic staff to schedule appointment if able. Discussed the following ways the patient can remain in a safe environment: be around others KARMA Grey [facility] YAKOV Vallejo is a 57 year old, presenting for the following health issues: UTI and Follow Up 11/05/2022 1:57 PM Additional Questions Roomed by joya 11/05/2022 1:57 PM Patient Reported Additional Medications Patient reports taking the following new medications none UTI History of Present Illness Reason for visit: Uti She eats 0-1 servings of fruits and [...] home, or get along with other people: Very difficult Long standing hx of mood related problems. No current active SI or plan. No Genitourinary - Female Onset/Duration: ongoing Description: Painful urination (Dysuria): YES Frequency: YES Blood in urine (Hematuria): No Delay in urine (Hesitency): No Intensity: severe Progression of Symptoms: worsening Accompanying Signs & Symptoms: Fever/chills: No Flank pain: YES Nausea and vomiting: No Vaginal symptoms: none Abdominal/Pelvic Pain: YES History: History of frequent UTI???s: YES History of kidney stones: No Sexually Active: No Possibility of : No Precipitating or alleviating factors: None Therapies tried and outcome: AZO Patient was treated recently with macrobid during an online visit for UTI. She notes that when she stopped it her sx returned. She was feeling ok while on it. No abd pain, N or V noted. Review of Systems Constitutional, HEENT, cardiovascular, pulmonary, gi and gu systems are negative, except as otherwise noted. Objective There were no vitals taken for this visit. There is no height or weight on file to calculate BMI. Physical Exam GENERAL: healthy, alert and no distress NECK: no adenopathy, no asymmetry, masses, or scars and thyroid normal to palpation CV: regular rate and rhythm, normal S1 S2, no S3 or S4, no murmur, click or rub, no peripheral edema and peripheral pulses strong PSYCH: mentation appears normal, affect normal/bright Results for orders placed or performed in visit on 11/05/22 Urine Microscopic Exam Status: Abnormal Result Value Ref Range Bacteria Urine Moderate (A) None Seen /HPF RBC Urine 0-2 0-2 /HPF /HPF WBC Urine 10-25 (A) 0-5 /HPF /HPF Squamous Epithelials Urine Few (A) None Seen /LPF Factor 10 chromogenic Status: Abnormal Result Value Ref Range Factor 10 Chromogenic 25 (L) 70 - 130 % Narrative Therapeutic Range: A Chromogenic Factor 10 level of approximately 20-40% inversely correlates with an INR of 2-3 for patients receiving Warfarin. Chromogenic Factor 10 levels below 20% indicate an INR greater than 3 and levels above 40% indicate an INR less than 2. Urine Culture Aerobic Bacterial - lab collect Status: Abnormal Specimen: Urine, Midstream Result Value Ref Range Culture 10,000-50,000 CFU/mL Escherichia coli (A) Susceptibility Escherichia coli - PADMINI Ampicillin 4 Susceptible ug/mL Ampicillin/ Sulbactam <=2 Susceptible ug/mL Piperacillin/Tazobactam <=4 Susceptible ug/mL Cefazolin* <=4 Susceptible ug/mL * Cefazolin PADMINI breakpoints are for the treatment of uncomplicated urinary tract infections. For the treatment of systemic infections, please contact the laboratory for additional testing. Cefoxitin <=4 Susceptible ug/mL Ceftazidime <=1 Susceptible ug/mL Ceftriaxone <=1 Susceptible ug/mL Cefepime <=1 Susceptible ug/mL Gentamicin <=1 Susceptible ug/mL Tobramycin <=1 Susceptible ug/mL Ciprofloxacin <=0.25 Susceptible ug/mL Levofloxacin <=0.12 Susceptible ug/mL Nitrofurantoin <=16 Susceptible ug/mL Trimethoprim/Sulfamethoxazole <=1/19 Susceptible ug/mL documented in this encounter Plan of Treatment Upcoming Encounters Date Type Department Care Team (Late st Contact Info) Description 07/16/2023 3:30 PM TRUCK STRIKER [facility] [address] [place] [address] Shankar Peñaloza MD [address] [place] [address] ROB[place] LOYA [id number] 2023 3:00 PM TRUCK STRIKER Virtual Visit [facility] Addiction [address] [place] [address] 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, [address] [address] 08/13/2023 2:30 PM TRUCK STRIKER Office Visit [facility] [address] [facility] [address] [place] [address] [place], [place] [id number] documented as of this encounter Procedures Procedure Name Priority Date/Time Associated Diagnosis Comments FACTOR 10 CHROMOGENIC Routine 11/05/2022 2:46 PM CDT URINE MICROSCOPIC EXAM Routine 11/05/2022 2:13 PM CDT Dysuria URINE CULTURE Add-On 11/05/2022 2:13 PM CDT Dysuria documented in this encounter Results * (ABNORMAL) [...] [facility] [address] [facility], [address] [address], [facility] [phone] * (ABNORMAL) Urine Culture Aerobic Bacterial - lab collect (11/05/2022 2:13 PM CDT) Culture 10,000-50,000 CFU/mL Escherichia coli(A) PADMINI 11/06/2022 11:26 PM CDT [facility] Urine MID-STREAM URINE SPECIMEN / Unknown Non-blood Collection / Unknown 11/05/2022 2:13 PM CDT 11/05/2022 2:15 PM CDT Narrative Organism Antibiotic Method Susceptibility Escherichia coli Ampicillin PADMINI 4 ug/mL: Susceptible Escherichia coli Ampicillin/ Sulbactam PADMINI <=2 ug/mL: Susceptible Escherichia coli Piperacillin/Tazobactam PADMINI <=4 ug/mL: Susceptible Escherichia coli Cefazolin PADMINI <=4 ug/mL: Susceptible Comment:Cefazolin NM C breakpoints are for the treatment of uncomplicated urinary tract infections. For the treatment of systemic infections, please contact the laboratory for additional testing. Escherichia coli Cefoxitin PADMINI <=4 ug/mL: Susceptible Escherichia coli Ceftazidime PADMINI <=1 ug/mL: Susceptible Escherichia coli Ceftriaxone PADMINI <=1 ug/mL: Susceptible Escherichia coli Cefepime PADMINI <=1 ug/mL: Susceptible Escherichia coli Gentamicin PADMINI <=1 ug/mL: Susceptible Escherichia coli Tobramycin PADMINI <=1 ug/mL: Susceptible Escherichia coli Ciprofloxacin PADMINI <=0.25 ug/mL: Susceptible Escherichia coli Levofloxacin PADMINI <=0.12 ug/mL: Susceptible Escherichia coli Nitrofurantoin PADMINI <=16 ug/mL: Susceptible Escherichia coli Trimethoprim/Sulfamethoxazole PADMINI <=1/19 ug/mL: Susceptible Jessee Roque PA-C LAB - MICRO GE NERAL ORDERABLES [facility] Inf. Diseases Diag. Lab [address] [facility], [address] [place] [address], [facility] [phone] * (ABNORMAL) Urine Microscopic Exam (11/05/2022 2:13 PM CDT) Bacteria Urine Moderate( A) None Seen /HPF PADMINI 11/05/2022 2:22 PM CDT LABORATORY RBC Urine 0-2 0-2 /HPF /HPF PADMINI 11/05/2022 2:22 PM CDT LABORATORY WBC Urine 10-25(A) 0-5 /HPF /HPF PADMINI 11/05/2022 2:22 PM CDT LABORATORY Squamous Epithelials Urine Few(A) None Seen /LPF PADMINI 11/05/2022 2:22 PM CDT LABORATORY Urine MID-STREAM URINE SPECIMEN / Unknown Non-blood Collection / Unknown 11/05/2022 2:13 PM CDT 11/05/2022 2:15 PM CDT Jessee Roque PA-C LAB - URINE OR DERABLES LABORATORY [facility] [place] [facility] [address] [facility] Lab (no room number, 1st floor of clinic) [place] [address], [facility] [phone] documented in this encounter Visit Diagnoses Diagnosis Acute cystitis without hematuria- Primary Acute cystitis Dysuria Rheumatoid arthritis involving multiple sites, unspecified whether rheumatoid factor present (H) Major depressive disorder, recurrent episode, mild (H24) Major depressive disorder, recurrent episode, mild documented in this encounter Additional Health Concerns Assessment Noted Time PHQ-9 Depression Total Score: 16 023 1:59 PM CDT documented as of this encounter Care Teams Surgical Training Specialist Relationship Specialty Start Date End Date Shankar Peñaloza MD [address] [place] [address] [place] LO[place] [address] PCP - General Internal Medicine 09/25/13 Navdeep Waldron MD [facility] [address] [place] [address] Physical Medicine & Rehabilitation - Pain Medicine 07/07/13 Shankar Peñaloza MD [address] [place] [address] [place] [address] Assigned PCP 07/22/16 Richardson Alberts PA-C [address] [facility] [address] Physician Paperboard Machine Operator Gastroenterology 03/01/22 Shankar Peñaloza MD [address] [place] [address] [place] LO[place] [address] Assigned Pain Medication Provider 06/17/22 Marielena Sunshine PA-C [facility] [address] [address] Physician Paperboard Machine Operator Urology 10/03/22 documented as of this encounter
--- OUTSIDE RECORDS SUMMARY | 2023-07-02 14:29 | XMS_ITS | Encounter Summary ---
Author Name Unknown Organization [facility] Address [address] [place] [address] Care Team Providers Care Insulation Manager Name Role Phone Navdeep Waldron MD Unavailable [phone] Shankar Peñaloza MD Primary Care Provider Shankar Peñaloza MD Unavailable [phone] Capri Gant OD Unavailable Leeanna Joe MD Unavailable Richardson Alberts-C Unavailable [phone] Shankar Peñaloza MD Unavailable [phone] Marielena Sunshine PA-C Unavailable Radha Rivas Unavailable Unavailable Marielena Sunshine PA-C Unavailable 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 Unavailable Encounter Details Date Type Department Care Team (Late st Contact Info) Description 04/18/2022 Marco Antonio Feliz [facility] [place] [address] [place] [address] Shankar Peñaloza MD [address] [facility] [place] [address] Social History Tobacco Use Types Packs/Day Years Used Date Smoking Tobacco: Former Cigarettes Q uit: 02/12/2021 Smokeless Tobacco: Never Alcohol Use Standard Drinks/Week Comments No 0 (1 standard drink = 0.6 oz pur e alcohol) PHQ-2 Answer Date Recorded PHQ-2 Score 6 04/08/2022 Sex and Gender Information Value Date Recorded Sex Assigned at Not on file Gender Identity Not on file Sexual Orientation Not on file COVID-19 Exposure Response Date Recorded In the last 10 days, have yo u been in contact with someone who was confirmed or suspected to have Coronavirus/COVID-19? No / Unsure 04/15/2022 9:34 AM PHYSICAL EDUCATION AIDE documented as of this encounter Plan of Treatment Upcoming Encounters Date Type Department Care Team (Late st Contact Info) Description 07/16/2023 3:30 PM PHYSICAL EDUCATION AIDE Office Visit [place] [address] [place] [address] Shankar Peñaloza MD [address] [facility] [place] [address] 2023 3:00 PM PHYSICAL EDUCATION AIDE Virtual Visit [facility] [address] [place] [address] 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, [facility] [address] [place], [place] [id number] 08/13/2023 2:30 PM PHYSICAL EDUCATION AIDE Office Visit [facility] [address] [place] [address] [place] [address] [place] [address] documented as of this encounter Visit Diagnoses Not on filedocumented in this encounter Additional Health Concerns Infection Onset Date Last Indicated Resolved Time COVID-19 05/07/2022 05/07/2022 05/28/2022 11:3 9 PM PHYSICAL EDUCATION AIDE Assessment Noted Time PHQ-9 Depression Total Score: 13 022 10:38 AM CDT documented as of this encounter Care Teams Insulation Manager Relationship Specialty Start Date End Date Shankar Peñaloza MD [address] [place] [address] [place] LO[place] [address] PCP - General Internal Medicine 09/25/[address] [facility] [address] [place] [address] Physical Medicine & Rehabilitation - Pain Medicine 07/07/13 Shankar Peñaloza MD [address] [place] [address] [place] [address] Assigned PCP 07/22/16 Capri Gant OD [address] [place] [address] [place] [address] Assigned Surgical Provider 04/29/21 05/31/22 Leeanna Joe MD [address] [place] [address] Assigned Rheumatology Provider 04/22/21 10/18/22 Richardson Alberts PA-C [address] [place] [address] Physician Qc Tech Gastroenterology 03/01/22 Shankar Peñaloza MD [address] [place] [address] ROB[place]OA [address] Assigned Pain Medication Provider 06/17/22 Marielena Sunshine PA-C [facility] E [address] [place] [address] Physician Qc Tech Urology 10/03/22 Radha Rivas Personal Advocate & Liaison (PAL) 11/26/22 Marielena Sunshine PA-C [address] [facility] [address] [place] [address] Assigned Surgical Provider 12/07/22 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 LICSW [address] [place] [address] Neuropsychiatric Aide Neuropsychiatric Aide - Clinical 06/23/23 documented as of this encounter
--- OUTSIDE RECORDS SUMMARY | 2023-07-02 14:29 | XMS_ITS | Encounter Summary ---
Author Name Unknown Organization [place] Address [facility] [place] [address] Care Team Providers Care Mobile Heavy Equipment Operator Name Role Phone Navdeep Waldron MD Unavailable [phone] Shankar Peñaloza MD Primary Care Provider Shankar Peñaloza MD Unavailable [phone] Capri Gant OD Unavailable Leeanna Joe MD Unavailable Richardson Alberts PA-C Unavailable [phone] Shankar Peñaloza MD Unavailable [phone] Marielena Sunshine PA-C Unavailable Radha Rivas Unavailable Unavailable Marielena Sunshine PA-C Unavailable 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 Unavailable Reason for Visit * Reason Comments Medication Refill Encounter Details Date Type Department Care Team (Late st Contact Info) Description 05/20/2022 Refill [facility] [place] [id number] [place] [address] Keli Barrios MD [address] [place] [address] Medication Refill Social History Tobacco Use Types [...] was confirmed or suspected to have Coronavirus/COVID-19? Yes 05/18/2022 12:40 PM GUI DEVELOPER documented as of this encounter Plan of Treatment Upcoming Encounters Date Type Department Care Team (Late st Contact Info) Description 07/16/2023 3:30 PM GUI DEVELOPER Office Visit [facility] [place] [address] [place] [address] Drive [address] [place] [phone] Shankar Peñaloza MD [address] [place] [address] [place] [address] 2023 3:00 PM GUI DEVELOPER Virtual Visit [facility] [address] [place] [address] 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, [address] [address] 08/13/2023 2:30 PM GUI DEVELOPER Office Visit [facility] [address] [place] [address] [place] [address] [place] [address] documented as of this encounter Visit Diagnoses Diagnosis Infection due to 2019 novel coronavirus Nausea and vomiting in adult Nausea with vomiting Epigastric pain Abdominal pain, epigastric documented in this encounter Additional Health Concerns Infection Onset Date Last Indicated Resolved Time COVID-19 05/07/2022 05/07/2022 05/28/2022 11:3 9 PM GUI DEVELOPER Assessment Noted Time PHQ-9 Depression Total Score: 13 022 10:38 AM CDT documented as of this encounter Care Teams Mobile Heavy Equipment Operator Relationship Specialty Start Date End Date Shankar Peñaloza MD [address] [place] [address] [place] [address] PCP - General Internal Medicine 09/25/13 Nav[facility]ron MD [facility] [address] [place] [address] Physical Medicine & Rehabilitation - Pain Medicine 07/07/13 Shankar Peñaloza MD [address] [place] [address] [place] [address] Assigned PCP 07/22/16 Capri Gant OD [address] [place] [address] [place] [address] Assigned Surgical Provider 04/29/21 05/31/22 Leeanna Joe MD [address] [place] [address] Assigned Rheumatology Provider 04/22/21 10/18/22 Richardson Alberts PA-C [address] [place] [address] Physician Estimator Printing Gastroenterology 03/01/22 Shankar Peñaloza MD [address] [place] [address] [place] [address] Assigned Pain Medication Provider 06/17/22 Marielena Sunshine PA-C [address] [place] [address] Physician Estimator Printing Urology 10/03/22 Radha Rivas Personal Advocate & Liaison (PAL) 11/26/22 Marielena Sunshine PA-C [address] [place] [address] Assigned Surgical Provider 12/07/22 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 LICSW [address] [place] [address] Pelota Maker Pelota Maker - Clinical 06/23/23 documented as of this encounter
--- OUTSIDE RECORDS SUMMARY | 2023-07-02 14:29 | XMS_ITS | Encounter Summary ---
Author Name Unknown Organization [facility] Address [address] [place] [address] Care Team Providers Care Passenger Barge Master Name Role Phone Navdeep Waldron MD Unavailable [phone] Shankar Peñaloza MD Primary Care Provider Shankar Peñaloza MD Unavailable [phone] Capri Gant OD Unavailable Leeanna Joe MD Unavailable Richardson Alberts-C Unavailable [phone] Shankar Peñaloza MD Unavailable [phone] Marielena Sunshine PA-C Unavailable Radha Rivas Unavailable Unavailable Marielena Sunshine PA-C Unavailable 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 Unavailable Encounter Details Date Type Department Care Team (Late st Contact Info) Description 03/04/2022 Marco Antonio Feliz [facility] [place] [address] [facility] [address] [place] [address] Shankar Peñaloza MD [address] [facility] [place] [address] Social History Tobacco Use Types Packs/Day Years Used Date Smoking Tobacco: Former Cigarettes Q uit: 02/12/2021 Smokeless Tobacco: Never Alcohol Use Standard Drinks/Week Comments No 0 (1 standard drink = 0.6 oz pur e alcohol) PHQ-2 Answer Date Recorded PHQ-2 Score 6 11/21/2021 Sex and Gender Information Value Date Recorded Sex Assigned at Not on file Gender Identity Not on file Sexual Orientation Not on file COVID-19 Exposure Response Date Recorded In the last 10 days, have yo u been in contact with someone who was confirmed or suspected to have Coronavirus/COVID-19? Unable to assess 03/01/2022 2:19 PM CDT documented as of this encounter Plan of Treatment Upcoming Encounters Date Type Department Care Team (Late st Contact Info) Description 07/16/2023 3:30 PM SHOP ESTIMATOR Office Visit [place] [address] [facility] [address] [place] [address] Shankar Peñaloza MD [address] [facility] [place] [address] 2023 3:00 PM SHOP ESTIMATOR Virtual Visit [facility] [address] [place] [address] 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, [facility] [address] [place], [place] [id number] 08/13/2023 2:30 PM SHOP ESTIMATOR Office Visit [facility] [address] [place] [address] [place] [address] [place] [address] documented as of this encounter Visit Diagnoses Not on filedocumented in this encounter Additional Health Concerns Infection Onset Date Last Indicated Resolved Time COVID-19 05/07/2022 05/07/2022 05/28/2022 11:3 9 PM SHOP ESTIMATOR Assessment Noted Time PHQ-9 Depression Total Score: 16 022 9:05 AM CDT documented as of this encounter Care Teams Passenger Barge Master Relationship Specialty Start Date End Date Shankar Peñaloza MD [address] [place] [address] [place] [address] PCP - General Internal Medicine 09/25/13 Navdeep Waldron MD [facility] [address] [place] [address] Physical Medicine & Rehabilitation - Pain Medicine 07/07/13 Shankar Peñaloza MD [address] [place] [address] [place] [address] Assigned PCP 07/22/16 Capri Gant OD [address] [place] [address] [place] [address] Assigned Surgical Provider 04/29/21 05/31/22 Leeanna Joe MD [address] [place] [address] Assigned Rheumatology Provider 04/22/21 10/18/22 Richardson Alberts PA-C [address] [place] [address] Physician Investment Consultant Gastroenterology 03/01/22 Shankar Peñaloza MD [address] [place] [address] [place] [address] Assigned Pain Medication Provider 06/17/22 Marielena Sunshine PA-C [facility] [address] [place] [address] Physician Investment Consultant Urology 10/03/22 Radha Rivas Personal Advocate & Liaison (PAL) 11/26/22 Marielena Sunshine PA-C [address] [facility] [address] [place] [address] Assigned Surgical Provider 12/07/22 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 LICSW [address] [place] [address] It Architect It Architect - Clinical 06/23/23 documented as of this encounter
--- OUTSIDE RECORDS SUMMARY | 2023-07-02 14:29 | XMS_ITS | Encounter Summary ---
Author Name Unknown Organization [place] Address [address] [place] [address] Care Team Providers Care Charter Coordinator Name Role Phone Navdeep Waldron MD Unavailable [phone] Shankar Peñaloza MD Primary Care Provider Shankar Peñaloza MD Unavailable [phone] Leeanna Joe MD Unavailable Richardson Alberts PA-C Unavailable [phone] Shankar Peñaloza MD Unavailable [phone] Reason for Visit * Reason Onset Date Comments Refill Request 08/29/2022 Encounter Details Date Type Department Care Team (Late st Contact Info) Description 08/29/2022 MyC Refill M [facility] Ke[place] [address] [place] [address] Drive [address] [place] [address] Shankar Peñaloza MD [address] [place] [address] [place]YA [address] Refill Request Social History [...] st Contact Info) Description 07/16/2023 3:30 PM MORTGAGE SERVICING SPECIALIST [facility] [address] [place] [address] Drive [address] [place] [address] Shankar Peñaloza MD [address] [place] [address] [place] LO[place] [address] 2023 3:00 PM MORTGAGE SERVICING SPECIALIST Virtual Visit [facility] [address] [place] [address] 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 [address] 08/13/2023 2:30 PM MORTGAGE SERVICING SPECIALIST Office Visit [facility] [address] [place] [address] [place] [address] [place] [address] documented as of this encounter Visit Diagnoses Diagnosis Fibromyalgia Mylagia and myositis, unspecified documented in this encounter Additional Health Concerns Assessment Noted Time PHQ-9 Depression Total Score: 17 022 7:09 AM MORTGAGE SERVICING SPECIALIST documented as of this encounter Care Teams Charter Coordinator Relationship Specialty Start Date End Date Shankar Peñaloza MD [address] [place] [address] [place] [address] PCP - General Internal Medicine 09/25/13 Navdeep Waldron MD [facility] [address] [place] [address] Physical Medicine & Rehabilitation - Pain Medicine 07/07/13 Shankar Peñaloza MD [address] [place] [address] [place] [address] Assigned PCP 07/22/16 Leeanna Joe MD [address] [place] [address] Assigned Rheumatology Provider 04/22/21 10/18/22 Richardson Alberts PA-C [address] [place] [address] Physician Survey Party Chief Gastroenterology 03/01/22 Shankar Peñaloza MD [address] [place] [address] [place] [address] Assigned Pain Medication Provider 06/17/22 documented as of this encounter
--- OUTSIDE RECORDS SUMMARY | 2023-07-02 14:29 | XMS_ITS | Encounter Summary ---
Author Name Unknown Organization [place] Address [address] [place] [address] Care Team Providers Care Barrel Bander Name Role Phone Navdeep Waldron MD Unavailable [phone] Shankar Peñaloza MD Primary Care Provider Shankar Peñaloza MD Unavailable [phone] Capri Gant OD Unavailable Leeanna Joe MD Unavailable Richardson AlbertsC Unavailable [phone] Shankar Peñaloza MD Unavailable [phone] Marielena Sunshine PA-C Unavailable Radha Rivas Unavailable Unavailable Marielena Sunshine PA-C Unavailable 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 Unavailable Encounter Details Date Type Department Care Team (Late st Contact Info) Description 05/26/2022 Marco Antonio Feliz [facility] [place] [address] [place] [address] Shankar Peñaloza MD [address] [facility] [place] [address] Social History Tobacco [...] to have Coronavirus/COVID-19? Yes 05/18/2022 12:40 PM AUDIOVISUAL TECHNICIAN documented as of this encounter Plan of Treatment Upcoming Encounters Date Type Department Care Team (Late st Contact Info) Description 07/16/2023 3:30 PM AUDIOVISUAL TECHNICIAN Office Visit [address] [place] [phone] Shankar Peñaloza MD [address] [facility] [place] [address] 2023 3:00 PM AUDIOVISUAL TECHNICIAN Virtual Visit [facility] [address] [place] [address] 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, [address] [id number] 08/13/2023 2:30 PM AUDIOVISUAL TECHNICIAN Office Visit [facility] [address] [place] [address] [place] [address] [facility] [place] [address] documented as of this encounter Visit Diagnoses Not on filedocumented in this encounter Additional Health Concerns Infection Onset Date Last Indicated Resolved Time COVID-19 05/07/2022 05/07/2022 05/28/2022 11:3 9 PM AUDIOVISUAL TECHNICIAN Assessment Noted Time PHQ-9 Depression Total Score: 13 022 10:38 AM CDT documented as of this encounter Care Teams Barrel Bander Relationship Specialty Start Date End Date Shankar Peñaloza MD [address] [place] [address] [place] [address] PCP - General Internal Medicine 09/25/13 Navdeep [facility]ron MD [facility] [address] [place] [address] Physical Medicine & Rehabilitation - Pain Medicine 07/07/13 Shankar Peñaloza MD [address] [place] [address] [place] [address] Assigned PCP 07/22/16 Capri Gant OD [address] [place] [address] [place] [address] Assigned Surgical Provider 04/29/21 05/31/22 Leeanna Joe MD [address] [place] [address] Assigned Rheumatology Provider 04/22/21 10/18/22 Richardson Alberts PA-C [address] [place] [address] Physician Food Safety Director Gastroenterology 03/01/22 Shankar Peñaloza MD [address] [place] [address] [place] [address] Assigned Pain Medication Provider 06/17/22 Marielena Sunshine PA-C [address] [place] [address] Physician Food Safety Director Urology 10/03/22 Radha Rivas Personal Advocate & Liaison (PAL) 11/26/22 Marielena Sunshine PA-C [address] [place], [place] [address] Assigned Surgical Provider 12/07/22 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 LICSW [address] [place] [address] Tax Examining Technician Tax Examining Technician - Clinical 06/23/23 documented as of this encounter
--- OUTSIDE RECORDS SUMMARY | 2023-07-02 14:29 | XMS_ITS | Encounter Summary ---
Author Name Unknown Organization [place] Address [address] [place] [address]. [place] [address] Care Team Providers Care Endodontist Name Role Phone Navdeep Waldron MD Unavailable [phone] Shankar Peñaloza MD Primary Care Provider [phone] Shankar Peñaloza MD Unavailable [phone] Leeanna Joe MD Unavailable Richardson Alberts PA-C Unavailable [phone] Shankar Peñaloza MD Unavailable [phone] Reason for Visit * Reason Comments Sinus Problem Entered automaticall y based on patient selection in [place]. Encounter Details Date Type Department Care Team (Late st Contact Info) Description 07/10/2022 11:55 AM SPRAY DYER E-Visit [address] [address] Marlena Weller PAGerardC [address] [place] [address] Sinus Problem (Entered automatically based... Social History Tobacco Use Types Packs/Day Years [...] this encounter Patient Instructions * Patient Instructions* Marlena Weller PA-C - 07/10/2022 11:55 AM SPRAY DYER Dear Anabel Robb After reviewing your responses, I've been able to diagnose you with bacterial sinusitis. Based on your responses and diagnosis, I have prescribed Augmentin to treat your symptoms. I have sent this to your pharmacy.? It is also important to stay well hydrated, get lots of rest and take tfyt-uxz-zrkudsw decongestants,?tylenol?or ibuprofen if you?are able to?take those medications per your primary care provider to help relieve discomfort.? It is important that you take?all of?your prescribed medication even if your symptoms are improvingafter a few doses.? Taking?all of?your medicine helps prevent the symptoms from returning.? If your symptoms worsen, you develop severe headache, vomiting, high fever (>102), or are not improving in 7 days, please contact your primary care provider for an appointment or visit any of our convenient Walk-in Care or Urgent Care Centers to be seen which can be found on our website?here.? Thanks again for choosing?us?as your health residential caregiver,? ? Marlena Weller PA-C? Y DYER documented in this encounter Miscellaneous Notes * Telephone Encounter - Marlena Weller PA-C - 07/10/2022 12:20 PM SPRAY DYER Provider E-Visit time total (minutes): 5 Y DYER documented in this encounter Plan of Treatment Upcoming Encounters Date Type Department Care Team (Late st Contact Info) Description 07/16/2023 3:30 PM SPRAY DYER Office Visit [address] [place] [address] Shankar Peñaloza MD [address] [place] [address] [place] [address] 2023 3:00 PM SPRAY DYER Virtual Visit [facility] [address] [place] [address] 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, [facility] [address] [place] [address] 08/13/2023 2:30 PM SPRAY DYER Office Visit [facility] [address] [place] [address] [place] [address] [place] [address] documented as of this encounter Visit Diagnoses Diagnosis Acute bacterial sinusitis- Primary Acute sinusitis, unspecified documented in this encounter Additional Health Concerns Assessment Noted Time PHQ-9 Depression Total Score: 17 022 7:09 AM SPRAY DYER documented as of this encounter Care Teams Endodontist Relationship Specialty Start Date End Date Shankar Peñaloza MD [address] [place] [address] [place] [address] PCP - General Internal Medicine 09/25/13 Navdeep Waldron MD [facility] [address] [place] [address] Physical Medicine & Rehabilitation - Pain Medicine 07/07/13 Shankar Peñaloza MD [address] [place] [address] [place] [address] Assigned PCP 07/22/16 Leeanna Joe MD [address] [place] [address] Assigned Rheumatology Provider 04/22/21 10/18/22 Richardson Alberts PA-C [address] [place] [address] Physician Database Management Specialist Gastroenterology 03/01/22 Shankar Peñaloza MD [address] [facility] [place] [address] Assigned Pain Medication Provider 06/17/22 documented as of this encounter
--- OUTSIDE RECORDS SUMMARY | 2023-07-02 14:29 | XMS_ITS | Encounter Summary ---
Author Name Unknown Organization [place] Address [address] [place] [address] Care Team Providers Care Veterans Services Specialist Name Role Phone Navdeep Waldron MD Unavailable [phone] Shankar Peñaloza MD Primary Care Provider Shankar Peñaloza MD Unavailable [phone] Capri Gant OD Unavailable Leeanna Joe MD Unavailable Richardson Alberts-C Unavailable [phone] Shankar Peñaloza MD Unavailable [phone] Marielena Sunshine PA-C Unavailable [phone] Radha Rivas Unavailable Unavailable Marielena Sunshine PA-C Unavailable [phone] 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 Unavailable [phone] Encounter Details Date Type Department Care Team (Late st Contact Info) Description 04/08/2022 Marco Antonio Feliz [facility] [place] [address] [place] [address] Shankar Peñaloza MD [address] [facility] [place] [address] Elevated serum creatinine (Primary Dx) Social History Tobacco Use Types [...] suspected to have Coronavirus/COVID-19? No / Unsure 04/11/2022 2:48 PM CDT documented as of this encounter Plan of Treatment Upcoming Encounters Date Type Department Care Team (Late st Contact Info) Description 07/16/2023 3:30 PM DELIVERY PERSON [facility] [place] [phone] Shankar Peñ[place] [address] [place] [address] [place] LO[place] [address] 2023 3:00 PM DELIVERY PERSON Virtual Visit [facility] [address] [place] [address] 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, [address] [id number] 08/13/2023 2:30 PM DELIVERY PERSON Office Visit [facility] [address] [place] [address] [place] [address] [place] [address] documented as of this encounter Results * (ABNORMAL) Basic metabolic panel (04/11/2022 2:58 PM CDT) Sodium 139 133 - 144 mmol/L 04/12/2022 7:41 AM CDT [facility] Potassium 4.7 3.4 - 5.3 mmol/L 04/12/2022 7:41 AM CDT [facility] Chloride 107 94 - 109 mmol/L 04/12/2022 7:41 AM CDT [facility] Carbon Dioxide (CO2) 32 20 - 32 mmol/L 04/12/2022 7:41 AM CDT [facility] Anion Gap <1(L) 3 - 14 mmol/L 04/12/2022 7:41 AM CDT [facility] Urea Nitrogen 15 7 - 30 mg/dL 04/12/2022 7:41 AM CDT [facility] Creatinine 0.95 0.52 - 1.04 mg/dL 04/12/2022 7:41 AM CDT [facility] Calcium 9.2 8.5 - 10.1 mg/dL 04/12/2022 7:41 AM CDT [facility] Glucose 99 70 - 99 mg/dL 04/12/2022 7:41 AM CDT [facility] GFR Estimate 70 >60 mL/min/1.7 3m2 04/12/2022 7:41 AM CDT [facility] Comment:Effective May 102020 eGFRcr in adults is calculated using the 2020 CKD-EPI creatinine equation which includes age and gender (Joseph et al., NEJM, DOI: 10.1056/NINErb1280122) Blood STRUCTURE OF RIGHT UPPER LIMB / Unknown Venipuncture / Unknown 04/11/2022 2:58 PM CDT 04/11/2022 2:58 PM CDT Shankar Peñaloza MD LAB - BLOOD ORDERABL ES [facility] [address] Lab (no room number, 1st floor of clinic) [place] [address], [facility] [phone] documented in this encounter Visit Diagnoses Diagnosis Elevated serum creatinine- Primary Other nonspecific findings on examination of blood documented in this encounter Additional Health Concerns Infection Onset Date Last Indicated Resolved Time COVID-19 05/07/2022 05/07/2022 05/28/2022 11:3 9 PM DELIVERY PERSON Assessment Noted Time PHQ-9 Depression Total Score: 13 04/08/ 022 10:38 AM CDT documented as of this encounter Care Teams Veterans Services Specialist Relationship Specialty Start Date End Date Shankar Peñaloza MD [address] [place] [address] [place] [address] PCP - General Internal Medicine 09/25/13 Navdeep Waldron MD [facility] [address] [place] [address] Physical Medicine & Rehabilitation - Pain Medicine 07/07/13 Shankar Peñaloza MD [address] [place] [address] [place] [address] Assigned PCP 07/22/16 Capri Gant OD [address] [place] [address] [place] [address] Assigned Surgical Provider 04/29/21 05/31/22 Leeanna Joe MD [address] [place] [address] Assigned Rheumatology Provider 04/22/21 10/18/22 Richardson Alberts PA-C [address] [place] [address] Physician Warehouse Technician Gastroenterology 03/01/22 Shankar Peñaloza MD [address] [place] [address] [place] [address] Assigned Pain Medication Provider 06/17/22 Marielena Sunshine PA-C [address] [facility] [address] [place] [address] Physician Warehouse Technician Urology 10/03/22 Radha Rivas Personal Advocate & Liaison (PAL) 11/26/22 Marielena Sunshine PA-C [address] [facility] [address] [place], [place] [address] Assigned Surgical Provider 12/07/22 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 LICSW [address] [place] [address] Clinical Aide Clinical Aide - Clinical 06/23/23 documented as of this encounter
--- OUTSIDE RECORDS SUMMARY | 2023-07-02 14:29 | XMS_ITS | Encounter Summary ---
Author Name Unknown Organization [place] Address [address] [place] [address] Care Team Providers Care Nursing Agency Manager Name Role Phone Navdeep Waldron MD Unavailable [phone] Shankar Peñaloza MD Primary Care Provider [phone] Shankar Peñaloza MD Unavailable [phone] Capri Gant OD Unavailable Leeanna Joe MD Unavailable Richardson AlbertsC Unavailable Shankar Peñaloza MD Unavailable [phone] Marielena Sunshine PA-C Unavailable Radha Rivas Unavailable Unavailable Marielena Sunshine PA-C Unavailable 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 Unavailable Encounter Details Date Type Department Care Team (Late st Contact Info) Description 05/07/2022 Marco Antonio Feliz [facility] [place] [address] [place] [address] Shankar Peñaloza MD [address] [facility] [place] [address] Social History Tobacco [...] Coronavirus/COVID-19? No / Unsure 04/15/2022 9:34 AM TOOL BUILDER documented as of this encounter Plan of Treatment Upcoming Encounters Date Type Department Care Team (Late st Contact Info) Description 07/16/2023 3:30 PM TOOL BUILDER Office Visit [place] [address] [place] [address] Shankar Peñaloza MD [address] [facility] [place] [address] 2023 3:00 PM TOOL BUILDER Virtual Visit [facility] [address] [place] [address] 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, [facility] [address] [place], [place] [address] 08/13/2023 2:30 PM TOOL BUILDER Office Visit [facility] [address] [place] [address] [place] [address] [place] [address] documented as of this encounter Visit Diagnoses Not on filedocumented in this encounter Additional Health Concerns Infection Onset Date Last Indicated Resolved Time COVID-19 05/07/2022 05/07/2022 05/28/2022 11:3 9 PM TOOL BUILDER Assessment Noted Time PHQ-9 Depression Total Score: 13 022 10:38 AM CDT documented as of this encounter Care Teams Nursing Agency Manager Relationship Specialty Start Date End Date Shankar Peñaloza MD [address] [place] [address] [place] [address] PCP - General Internal Medicine 09/25/13 Navdeep Waldron MD [facility] [address] [place] [address] Physical Medicine & Rehabilitation - Pain Medicine 07/07/13 Shankar Peñaloza MD [address] [place] [address] [place] [address] Assigned PCP 07/22/16 Capri Gant OD [address] [place] [address] [place] [address] Assigned Surgical Provider 04/29/21 05/31/22 Leeanna Joe MD [address] [place] [address] Assigned Rheumatology Provider 04/22/21 10/18/22 Richardson Alberts PA-C [address] [place] [address] Physician Deployment Technician Gastroenterology 03/01/22 Shankar Peñaloza MD [address] [place] [address] [place] [address] Assigned Pain Medication Provider 06/17/22 Marielena Sunshine PA-C [facility] [address] [place] [address] Physician Deployment Technician Urology 10/03/22 Radha Rivas Personal Advocate & Liaison (PAL) 11/26/22 Marielena Sunshine PA-C [address] [facility] [address] [place] [address] Assigned Surgical Provider 12/07/22 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 LICSW [address] [place] [address] Quality Nurse Quality Nurse - Clinical 06/23/23 documented as of this encounter
--- OUTSIDE RECORDS SUMMARY | 2023-07-02 14:29 | XMS_ITS | Encounter Summary ---
Author Name Unknown Organization [place] Address [address] [place] [address] Care Team Providers Care Team Facilitator Name Role Phone Navdeep Waldron MD Unavailable [phone] Shankar Peñaloza MD Primary Care Provider [phone] Shankar Peñaloza MD Unavailable [phone] Leeanna Joe MD Unavailable Richardson Alberts PA-C Unavailable Shankar Peñaloza MD Unavailable [phone] Reason for Visit * Reason Onset Date Comments Refill Request 07/28/2022 Encounter Details Date Type Department Care Team (Late st Contact Info) Description 07/28/2022 MyC Refill M [facility] [place] [address] [place] [address] [address] [place] [address] Shankar Peñaloza MD [address] [place] [address] [place] [address] Refill Request Social History [...] Contact Info) Description 07/16/2023 3:30 PM MORTGAGE OR LOAN UNDERWRITER [facility] [address] [place] [address] Drive [address] [place] [address] Shankar Peñaloza MD [address] [place] [address] [place] [address] 2023 3:00 PM MORTGAGE OR LOAN UNDERWRITER Virtual Visit [facility] [address] [place] [address] 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 [address] 08/13/2023 2:30 PM MORTGAGE OR LOAN UNDERWRITER Office Visit [facility] [address] [place] [address] [place] [address] [place] [address] documented as of this encounter Visit Diagnoses Diagnosis Fibromyalgia Mylagia and myositis, unspecified documented in this encounter Additional Health Concerns Assessment Noted Time PHQ-9 Depression Total Score: 17 022 7:09 AM MORTGAGE OR LOAN UNDERWRITER documented as of this encounter Care Teams Team Facilitator Relationship Specialty Start Date End Date Shankar Peñaloza MD [address] [place] [address] [place] [address] PCP - General Internal Medicine 09/25/13 Navdeep Waldron MD [facility] [address] [place] [address] Physical Medicine & Rehabilitation - Pain Medicine 07/07/13 Shankar Peñaloza MD [address] [place] [address] [place] [address] Assigned PCP 07/22/16 Leeanna Joe MD [address] [place] [address]14785 Assigned Rheumatology Provider 04/22/21 10/18/22 Richardson Alberts PA-C [address] [place] [address] Physician Bead Wrapper Gastroenterology 03/01/22 Shankar Peñaloza MD [address] [place] [address] [place] [address] Assigned Pain Medication Provider 06/17/22 documented as of this encounter
--- OUTSIDE RECORDS SUMMARY | 2023-07-02 14:29 | XMS_ITS | Encounter Summary ---
Author Name Unknown Organization [facility] Address [address] [place] [address] Care Team Providers Care Artifacts Conservator Name Role Phone Navdeep Waldron MD Unavailable [phone] Shankar Peñaloza MD Primary Care Provider [phone] Shankar Peñaloza MD Unavailable [phone] Leeanna Joe MD Unavailable Richardson Alberts PA-C Unavailable [phone] Shankar Peñaloza MD Unavailable [phone] Reason for Visit * Reason Onset Date Comments Refill Request 08/01/2022 Encounter Details Date Type Department Care Team (Late st Contact Info) Description 08/01/2022 Refill [facility] [place] [address] [place] [address] Drive [address] [place] [address] Shankar Peñaloza MD [address] [place] [address] ROB[place] LOYA [address] Refill Request Social History [...] * Telephone Encounter - Chantel Cao - 08/01/2022 3:54 PM CST Call out to patient. Notified script was sent to [facility] . Thank you Raúl Randhawa Supervisor Painting Department ICAL STRENGTH TESTER * Telephone Encounter - Shankar Peñaloza MD - 08/01/2022 3:42 PM CST Rx sent to [facility] in [place]. I think she wanted to know when it was sent? Please let her know. ICAL STRENGTH TESTER * Telephone Encounter - Moe Barnes RN - 08/01/2022 12:32 PM CST Patient calling, states pharmacy is out of stock of fentaNYL (DURAGESIC) 25 mcg/hr 72 hr patch. Pharmacy does not know when they will have back in stock, may be next week. Patient states [facility] off [place] does have this medication in stock. Please review and advise on alternative pharmacy requested for medication. Moe Thornton RN 08/01/2022 at 12:34 PM ICAL STRENGTH TESTER documented in this encounter Plan of Treatment Upcoming Encounters Date Type Department Care Team (Late st Contact Info) Description 07/16/2023 3:30 PM CHEMICAL STRENGTH TESTER Office Visit [facility] [place] [address] [facility] [address] [place] [address] Shankar [place] [address] [place] [address] ROBINA LOYA [id number] 2023 3:00 PM CHEMICAL STRENGTH TESTER Virtual [facility] [place] [address] [place] [address] 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, [facility] [address] [place] [address] 08/13/2023 2:30 PM CHEMICAL STRENGTH TESTER Office Visit [facility] [address] [place] [phone] [place] [address] [place], [place] [phone] documented as of this encounter Visit Diagnoses Diagnosis Fibromyalgia Mylagia and myositis, unspecified documented in this encounter Additional Health Concerns Assessment Noted Time PHQ-9 Depression Total Score: 17 022 7:09 AM CHEMICAL STRENGTH TESTER documented as of this encounter Care Teams Artifacts Conservator Relationship Specialty Start Date End Date Shankar Peñaloza MD [address] [place] [address] [place] [address] PCP - General Internal Medicine 09/25/13 Navdeep Waldron MD [facility] [address] [place] [address] Physical Medicine & Rehabilitation - Pain Medicine 07/07/13 Shankar Peñaloza MD [address] [place] [address] [place] [address] Assigned PCP 07/22/16 Leeanna Joe MD [address] [place] [address] [id number] Assigned Rheumatology Provider 04/22/21 10/18/22 Richardson Alberts PA-C [address] [place] [address] Physician Endoscopy Specialty Technician Gastroenterology 03/01/22 Shankar Peñaloza MD [address] [facility] [place] [address] Assigned Pain Medication Provider 06/17/22 documented as of this encounter
--- OUTSIDE RECORDS SUMMARY | 2023-07-02 14:29 | XMS_ITS | Encounter Summary ---
Author Name Unknown Organization [facility] [place] Address [address] [place] [address] Care Team Providers Care Custom Wood Stair Builder Name Role Phone Navdeep Waldron MD Unavailable [phone] Shankar Peñaloza MD Primary Care Provider [phone] Shankar Peñaloza MD Unavailable [phone] Capri Gant OD Unavailable Leeanna Joe MD Unavailable Richardson Alberts PA-C Unavailable [phone] Shankar Peñaloza MD Unavailable [phone] Marielena Sunshine PA-C Unavailable Radha Rivas Unavailable Unavailable Marielena Sunshine PA-C Unavailable 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 Unavailable Reason for Referral * Consultation (Routine: Next available opening) - Closed Specialty Diagnoses / Procedures Referred By Contjohnny t Referred To Contact Gastroenterology Diagnoses Epigastric pain Gastroesophageal reflux disease, unspecified whether esophagitis present Shankar Peñaloza MD [address] [facility] [place] [address] [facility] [address] [place] [id number] Referral ID Status Reason Start Date Expiration Date Visits Re quested Visits Authorized [id number] Closed 02/05/2022 02/05/2023 1 1 Question Answer Reason for Referral: General GI Scheduling Instructions: [facility] will call you to coordinate your care as prescribed by the provider. If you don? t hear from a business services representative within 2 business days, please call . Comments Please be aware that coverage of these services is subject to the terms and limitations of your health insurance plan. Call member services at your health plan with any benefit or coverage questions. [facility] will call you to coordinate your care as prescribed by the provider. If you don? t hear from a business services representative within 2 business days, please call . Encounter Details Date Type Department Care Team (Late st Contact Info) Description 02/05/2022 [facility] [address] [place] [address] [address] [place] [address] Shankar Peñaloza MD [address] [place] [address] [place] [address] Epigastric pain (Primary Dx); Gastroesophageal reflux disease, unspecified whether esophagitis present Social History Tobacco Use Types Packs/Day Years [...] suspected to have Coronavirus/COVID-19? No / Unsure 01/22/2022 2:47 PM CDT documented as of this encounter Miscellaneous Notes * Telephone Encounter - Evelin Capps RN - 02/05/2022 4:37 PM CDT Please see MyChart message. Ok to refer to GI or should she be seen for an OV first? Evelin Capps RN on 02/05/2022 at 4:38 PM documented in this encounter Plan of Treatment Upcoming Encounters Date Type Department Care Team (Late st Contact Info) Description 07/16/2023 3:30 PM VAN CDL DRIVER Office Visit [facility] [address] [facility] [address] [place] [address] Shankar Peñaloza MD [address] [facility] [place] [address] 2023 3:00 PM VAN CDL DRIVER Virtual Visit [facility] [address] [place] [address] 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, [facility] [address] [id number] 08/13/2023 2:30 PM VAN CDL DRIVER Office Visit [facility] [phone] [place] [phone] [place]acey [place] [address] [place] [address] [phone] Scheduled Referrals Name Type Priority Associated Diagnoses Orde r Schedule Adult GI Regional Environmental Manager Referral - Consult Only Referral Routine: Next available opening Epigastric pain Gastroesophageal reflux disease, unspecified whether esophagitis present Expected: 02/05/2022 (Approximate), Expires: 02/05/2023 documented as of this encounter Visit Diagnoses Diagnosis Epigastric pain- Primary Abdominal pain, epigastric Gastroesophageal reflux disease, unspecified whether esophagitis present documented in this encounter Additional Health Concerns Infection Onset Date Last Indicated Resolved Time COVID-19 05/07/2022 05/07/2022 05/28/2022 11:3 9 PM VAN CDL DRIVER Assessment Noted Time PHQ-9 Depression Total Score: 16 022 9:05 AM CDT documented as of this encounter Care Teams Custom Wood Stair Builder Relationship Specialty Start Date End Date Shankar Peñaloza MD [address] [place] [address] [place] [address] PCP - General Internal Medicine 09/25/13 Navdeep Waldron MD [facility] [address] [place] [address] Physical Medicine & Rehabilitation - Pain Medicine 07/07/13 Shankar Peñaloza MD [address] [place] [address] [place] [address] Assigned PCP 07/22/16 Capri Gant OD [address] [place] [address] [place] [address] Assigned Surgical Provider 04/29/21 05/31/22 Leeanna Joe MD [address] [place] [address] Assigned Rheumatology Provider 04/22/21 10/18/22 Richardson Alberts PA-C [address] [place] [address] Physician Technical Laboratory Asst Gastroenterology 03/01/22 Shankar Peñaloza MD [address] [place] [address] [place] [address] Assigned Pain Medication Provider 06/17/22 Marielena Sunshine PA-C [address] [facility] [address] [place] [address] Physician Technical Laboratory Asst Urology 10/03/22 Radha Rivas Personal Advocate & Liaison (PAL) 11/26/22 Marielena Sunshine PA-C [address] [facility] [address] [place] [address] Assigned Surgical Provider 12/07/22 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 LICSW [address] [place] [address] Ingot Buggy Operator Ingot Buggy Operator - Clinical 06/23/23 documented as of this encounter
--- OUTSIDE RECORDS SUMMARY | 2023-07-02 14:29 | XMS_ITS | Encounter Summary ---
Author Name Unknown Organization [facility] Address [facility] [place] [address] Care Team Providers Care Chronic Care Nurse Name Role Phone Navdeep Waldron MD Unavailable [phone] Shankar Peñaloza MD Primary Care Provider Shankar Peñaloza MD Unavailable [phone] Capri Gant OD Unavailable Leeanna Joe MD Unavailable Richardson Alberts PA-C Unavailable Shankar Peñaloza MD Unavailable [phone] Marielena Sunshine PA-C Unavailable [phone] Radha Rivas Unavailable Unavailable Marielena Sunshine PA-C Unavailable [phone] 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 Unavailable Reason for Visit * Reason Comments Medication Refill Encounter Details Date Type Department Care Team (Late st Contact Info) Description 05/22/[address] [facility] [place] [address] [place] [address] Keli Barrios MD [address] [place] [address] Medication Refill Social History Tobacco Use Types [...] to have Coronavirus/COVID-19? Yes 05/18/2022 12:40 PM MANUAL WINDER documented as of this encounter Plan of Treatment Upcoming Encounters Date Type Department Care Team (Late st Contact Info) Description 07/16/2023 3:30 PM MANUAL WINDER Office Visit [facility] [place] [address] [place] [address] Drive [address] [place] [phone] Shankar Peñaloza MD [address] [place] [address] [place] [address] 2023 3:00 PM MANUAL WINDER Virtual Visit [facility] [address] [place] [address] 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, [address] [address] 08/13/2023 2:30 PM MANUAL WINDER Office Visit [facility] [address] [place] [address] [place] [address] [place] [address] documented as of this encounter Visit Diagnoses Diagnosis Infection due to 2019 novel coronavirus Nausea and vomiting in adult Nausea with vomiting Epigastric pain Abdominal pain, epigastric documented in this encounter Additional Health Concerns Infection Onset Date Last Indicated Resolved Time COVID-19 05/07/2022 05/07/2022 05/28/2022 11:3 9 PM MANUAL WINDER Assessment Noted Time PHQ-9 Depression Total Score: 13 022 10:38 AM CDT documented as of this encounter Care Teams Chronic Care Nurse Relationship Specialty Start Date End Date Shankar Peñaloza MD [address] [place] [address] [place] [address] PCP - General Internal Medicine 09/25/13 Navdeep Waldron MD [facility] [address] [place] [address] Physical Medicine & Rehabilitation - Pain Medicine 07/07/13 Shankar Peñaloza MD [address] [place] [address] [place] [address] Assigned PCP 07/22/16 Capri Gant OD [address] [place] [address] [place] [address] Assigned Surgical Provider 04/29/21 05/31/22 Leeanna Joe MD [address] [place] [address] Assigned Rheumatology Provider 04/22/21 10/18/22 Richardson Alberts PA-C [address] [place] [address] Physician Hotel Assistant Manager Gastroenterology 03/01/22 Shankar Peñaloza MD [address] [place] [address] [place] [address] Assigned Pain Medication Provider 06/17/22 Marielena Sunshine PA-C [address] [place] [address] Physician Hotel Assistant Manager Urology 10/03/22 Radha Rivas Personal Advocate & Liaison (PAL) 11/26/22 Marielena Sunshine PA-C [address] [place] [address] Assigned Surgical Provider 12/07/22 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 LICSW [address] [place] [address] Tube Balancer Tube Balancer - Clinical 06/23/23 documented as of this encounter
--- OUTSIDE RECORDS SUMMARY | 2023-07-02 14:29 | XMS_ITS | Encounter Summary ---
Author Name Unknown Organization [place] Address [address] [place] [address] Care Team Providers Care Manager Combination Name Role Phone Navdeep Waldron MD Unavailable [phone] Shankar Peñaloza MD Primary Care Provider [phone] Shankar Peñaloza MD Unavailable [phone] Capri Gant OD Unavailable Leeanna Joe MD Unavailable Richardson Alberts PA-C Unavailable [phone] Shankar Peñaloza MD Unavailable [phone] Marielena Sunshine PA-C Unavailable Radha Rivas Unavailable Unavailable Marielena Sunshine PA-C Unavailable 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 Unavailable Encounter Details Date Type Department Care Team (Latest Contact Info) Description 02/20/2022 Marco Antonio Feliz [facility] [place] [address] [facility] [address] [place] [address] Shankar Peñaloza MD [address] [facility] [place] [address] Gastroesophageal reflux disease without esophagitis (Primary Dx); Fibromyalgia Social History Tobacco Use Types Packs/Day Years [...] st Contact Info) Description 07/16/2023 3:30 PM PRINCIPAL DATA ARCHITECT [facility] [address] [place] [address] Drive [address] [place] [phone] Shankar Peñaloza MD [address] [place] [address] [place] [address] 2023 3:00 PM PRINCIPAL DATA ARCHITECT Virtual Visit [facility] [address] [place] [address] 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, [address] [id number] 08/13/2023 2:30 PM PRINCIPAL DATA ARCHITECT Office Visit [facility] [address] [place] [address] [place] [address] [place] [address] documented as of this encounter Visit Diagnoses Diagnosis Gastroesophageal reflux disease without esophagitis- Primary Esophageal reflux Fibromyalgia Mylagia and myositis, unspecified documented in this encounter Additional Health Concerns Infection Onset Date Last Indicated Resolved Time COVID-19 05/07/2022 05/07/2022 05/28/2022 11:3 9 PM PRINCIPAL DATA ARCHITECT Assessment Noted Time PHQ-9 Depression Total Score: 16 022 9:05 AM CDT documented as of this encounter Care Teams Manager Combination Relationship Specialty Start Date End Date Shankar Peñaloza MD [address] [place] [address] ROB[place] LO[place] [address] PCP - General Internal Medicine 09/25/13 Navdeep Waldron MD [facility] [address] [place] [address] Physical Medicine & Rehabilitation - Pain Medicine 07/07/13 Shankar Peñaloza MD [address] [place] [address] [place] [address] Assigned PCP 07/22/16 Capri Gant OD [address] [place] [address] ROB[place] [address] Assigned Surgical Provider 04/29/21 05/31/22 Leeanna Joe MD [address] [place] [address] Assigned Rheumatology Provider 04/22/21 10/18/22 Richardson Alberts PA-C [address] [place] [address] Physician Transportation Operations Manager Gastroenterology 03/01/22 Shankar Peñaloza MD [address] [place] [address] ROB[place] [address] Assigned Pain Medication Provider 06/17/22 Marielena Sunshine PA-C [address] [place] [address] Physician Transportation Operations Manager Urology 10/03/22 Radha Rivas Personal Advocate & Liaison (PAL) 11/26/22 Marielena Sunshine PA-C [address] [facility] 500 [place] [address] Assigned Surgical Provider 12/07/22 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 LICSW [address] [place] [address] Document Management Analyst Document Management Analyst - Clinical 06/23/23 documented as of this encounter
--- OUTSIDE RECORDS SUMMARY | 2023-07-02 14:29 | XMS_ITS | Encounter Summary ---
Author Name Unknown Organization [facility] Address [address] [place] [address] Care Team Providers Care Receiving Coordinator Name Role Phone Navdeep Waldron MD Unavailable [phone] Shankar Peñaloza MD Primary Care Provider Shankar Peñaloza MD Unavailable [phone] Capri Gant OD Unavailable Leeanna Joe MD Unavailable Richardson Alberts PA-C Unavailable [phone] Shankar Peñaloza MD Unavailable [phone] Marielena Sunshine PA-C Unavailable Radha Rivas Unavailable Unavailable Marielena Sunshine PA-C Unavailable 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 Unavailable Reason for Visit * Reason Onset Date Comments Refill Request 10/15/2021 Encounter Details Date Type Department Care Team (Late st Contact Info) Description 10/15/2021 Marco Antonio Feliz [facility] [address] [facility] [address] [place] [address] Suzi Purvis MD [address] [place] [address] Refill Request Social History Tobacco Use Types Packs/Day Years Used Date Smoking Tobacco: Former Cigarettes Q uit: 02/12/2021 Smokeless Tobacco: Never Alcohol Use Standard Drinks/Week Comments No 0 (1 standard drink = 0.6 oz pur e alcohol) PHQ-2 Answer Date Recorded PHQ-2 Score 6 06/12/2021 Sex and Gender Information Value Date Recorded Sex Assigned at Not on file Gender Identity Not on file Sexual Orientation Not on file COVID-19 Exposure Response Date Recorded In the last 10 days, have yo u been in contact with someone who was confirmed or suspected to have Coronavirus/COVID-19? No / Unsure 10/05/2021 10:08 AM CDT documented as of this encounter Miscellaneous Notes * Telephone Encounter - Tiffani Ko MA - 10/15/2021 3:53 PM CDT Pt has visit for physical on 11/02/2021, closing encounter. Tiffani Bolaños MA 3:53 PM 10/15/2021 * Telephone Encounter - Ursula Cristobal MD - 10/15/2021 12:24 PM CDT Refilled, patient due for annual visit with PCP. Ursula Cristobal MD Internal Medicine-Pediatrics * Telephone Encounter - Evelin Capps RN - 10/15/2021 10:52 AM CDT Routing refill request to provider for review/approval because: Drug not on the [facility] refill protocol Evelin Capps RN on 10/15/2021 at 10:52 AM documented in this encounter Plan of Treatment Upcoming Encounters Date Type Department Care Team (Late st Contact Info) Description 07/16/2023 3:30 PM STOVE INSTALLER Office Visit [facility] [place] [address] [place] [address] Shankar Peñaloza MD [address] [facility] [place] [address] 2023 3:00 PM STOVE INSTALLER Virtual Visit [facility] [address] [place] [address] 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, [facility] [address] [place] [address] 08/13/2023 2:30 PM STOVE INSTALLER Office Visit [facility] [address] [place] [phone] [place]acey [place] [address] [place] [address] documented as of this encounter Visit Diagnoses Diagnosis Fibromyalgia Mylagia and myositis, unspecified documented in this encounter Additional Health Concerns Infection Onset Date Last Indicated Resolved Time COVID-19 05/07/2022 05/07/2022 05/28/2022 11:3 9 PM STOVE INSTALLER Assessment Noted Time PHQ-9 Depression Total Score: 17 022 7:02 AM STOVE INSTALLER documented as of this encounter Care Teams Receiving Coordinator Relationship Specialty Start Date End Date Shankar Peñaloza MD [address] [place] [address] [place] [address] PCP - General Internal Medicine 09/25/13 Navdeep Waldron MD [facility] [address] [place] [address] Physical Medicine & Rehabilitation - Pain Medicine 07/07/13 Shankar Peñaloza MD [address] [place] [address] [place] [address] Assigned PCP 07/22/16 Capri Gant OD [address] [place] [address] [place] [address] Assigned Surgical Provider 04/29/21 05/31/22 Leeanna Joe MD [address] [place] [address] Assigned Rheumatology Provider 04/22/21 10/18/22 Richardson Alberts PA-C [address] [facility] [place] [address] Physician Hospice Executive Director Gastroenterology 03/01/22 Shankar Peñaloza MD [address] [place] [address] [place] [address] Assigned Pain Medication Provider 06/17/22 Marielena Sunshine PA-C [address] [facility] [address] [place] [address] Physician Hospice Executive Director Urology 10/03/22 Radha Rivas Personal Advocate & Liaison (PAL) 11/26/22 Marielena Sunshine PA-C [address] [facility] 500 [place], [place] 752045 Assigned Surgical Provider 12/07/22 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 LICSW [address] [address] Prepared Foods Team Leader Prepared Foods Team Leader - Clinical 06/23/23 documented as of this encounter
--- OUTSIDE RECORDS SUMMARY | 2023-07-02 14:29 | XMS_ITS | Encounter Summary ---
Author Name Unknown Organization [place] Address [address] [place] [address] Care Team Providers Care Technical Testing Engineer Name Role Phone Navdeep Waldron MD Unavailable [phone] Shankar Peñaloza MD Primary Care Provider Shankar Peñaloza MD Unavailable [phone] Leeanna Joe MD Unavailable Richardson Alberts PA-C Unavailable [phone] Shankar Peñaloza MD Unavailable [phone] Reason for Visit * Reason Onset Date Comments Refill Request 08/29/2022 Encounter Details Date Type Department Care Team (Late st Contact Info) Description 08/29/2022 MyC Refill [facility] [place] [address] [facility] [address] [place] [address] Verenice Estes PA-C [address] [facility] [place] [address] Refill Request Social History [...] st Contact Info) Description 07/16/2023 3:30 PM TRANSPORTATION MAINTENANCE OPERATOR Office Visit [address] [place] [address] Shankar Peñaloza MD [address] [place] [address] [place] [address] 2023 3:00 PM TRANSPORTATION MAINTENANCE OPERATOR Virtual Visit [facility] [address] [place] [address] 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, [address] [address] 08/13/2023 2:30 PM TRANSPORTATION MAINTENANCE OPERATOR Office Visit [facility] [address] [place] [address] [place] [address] [place] [address] documented as of this encounter Visit Diagnoses Diagnosis Fibromyalgia Mylagia and myositis, unspecified documented in this encounter Additional Health Concerns Assessment Noted Time PHQ-9 Depression Total Score: 17 022 7:09 AM TRANSPORTATION MAINTENANCE OPERATOR documented as of this encounter Care Teams Technical Testing Engineer Relationship Specialty Start Date End Date Shankar Peñaloza MD [address] [place] [address] [place] [address] PCP - General Internal Medicine 09/25/13 Navdeep Waldron MD [facility] [address] [place] [address] Physical Medicine & Rehabilitation - Pain Medicine 07/07/13 Shankar Peñaloza MD [address] [place] [address] [place] [address] Assigned PCP 07/22/16 Leeanna Joe MD [address] [place] [id number] Assigned Rheumatology Provider 04/22/21 10/18/22 Richardson Alberts PA-C [address] [place] [address] Physician Fixed Assets Accountant Gastroenterology 03/01/22 Shankar Peñaloza MD [address] [place] [address] [place] [address] Assigned Pain Medication Provider 06/17/22 documented as of this encounter
--- OUTSIDE RECORDS SUMMARY | 2023-07-02 14:29 | XMS_ITS | Encounter Summary ---
Author Name Unknown Organization [place] Address [address] [place] [address]. [place] [address] Care Team Providers Care Online Editor Name Role Phone Navdeep Waldron MD Unavailable [phone] Shankar Peñaloza MD Primary Care Provider Shankar Peñaloza MD Unavailable [phone] Capri Gant OD Unavailable Leeanna Joe MD Unavailable Richardson Alberts PAGerardC Unavailable [phone] Shankar Peñaloza MD Unavailable [phone] Marielena Sunshine PA-C Unavailable Radha Rivas Unavailable Unavailable Marielena Sunshine PA-C Unavailable 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 Unavailable [phone] Encounter Details Date Type Department Care Team (Late st Contact Info) Description 04/09/2022 [facility] Medical Advice Adult Call Center [address] [place] [address] Drew Barr Social History Tobacco Use Types Packs/Day Years [...] st Contact Info) Description 07/16/2023 3:30 PM ARCHITECT INTERNSHIP Office Visit [address] [place] [address] Shankar Peñaloza MD [address] [facility] [place] [address] 2023 3:00 PM ARCHITECT INTERNSHIP Virtual Visit [facility] [address] [place] [address] 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, [address] [address] 08/13/2023 2:30 PM ARCHITECT INTERNSHIP Office Visit [facility] [address] [place] [address] [place] [address] [place], [place] [phone] documented as of this encounter Visit Diagnoses Not on filedocumented in this encounter Additional Health Concerns Infection Onset Date Last Indicated Resolved Time COVID-19 05/07/2022 05/07/2022 05/28/2022 11:3 9 PM ARCHITECT INTERNSHIP Assessment Noted Time PHQ-9 Depression Total Score: 13 022 10:38 AM CDT documented as of this encounter Care Teams Online Editor Relationship Specialty Start Date End Date Shankar Peñaloza MD [address] [place] [address] [place] [address] PCP - General Internal Medicine 09/25/13 Navdeep Waldron MD [facility] [address] [place] [address] Physical Medicine & Rehabilitation - Pain Medicine 07/07/13 Shankar Peñaloza MD [address] [place] [address] [place] [address] Assigned PCP 07/22/16 Capri Gant OD [address] [place] [address] [place] [address] Assigned Surgical Provider 04/29/21 05/31/22 Leeanna Joe MD [address] [place], [place] [address] Assigned Rheumatology Provider 04/22/21 10/18/22 Richardson Alberts PA-C [address] [place] [address] Physician Knife Machine Operator Gastroenterology 03/01/22 Shankar Peñaloza MD [address] [place] [address] [place] [address] Assigned Pain Medication Provider 06/17/22 Marielena Sunshine PA-C [address] [facility] [address] [place] [address] Physician Knife Machine Operator Urology 10/03/22 Radha Rivas Personal Advocate & Liaison (PAL) 11/26/22 Marielena Sunshine PA-C [address] [address] Assigned Surgical Provider 12/07/22 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 LICSW [address] [place] [address] Tumbling Instructor Tumbling Instructor - Clinical 06/23/23 documented as of this encounter
--- OUTSIDE RECORDS SUMMARY | 2023-07-02 14:30 | XMS_ITS | Encounter Summary ---
Author Name Unknown Organization [place] Address [address] [place] [address] Care Team Providers Care Final Expense Agent Name Role Phone Navdeep Waldron MD Unavailable [phone] Shankar Peñaloza MD Primary Care Provider [phone] Shankar Peñaloza MD Unavailable [phone] Capri Gant OD Unavailable Leeanna Joe MD Unavailable Richardson Alberts PAGerardC Unavailable Shankar Peñaloza MD Unavailable [phone] Marielena Sunshine PA-C Unavailable Radha Rivas Unavailable Unavailable Marielena Sunshine PA-C Unavailable 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 Unavailable Encounter Details Date Type Department Care Team (Late st Contact Info) Description 09/21/2020 Documentation Only INTERFACED REPORT Unknown, Provider Social History Tobacco Use Types Packs/Day Years Used Date Smoking Tobacco: Every Day Cigarettes 0.5 Smokeless Tobacco: Never Alcohol Use Standard Drinks/Week Comments No 0 (1 standard drink = 0.6 oz pur e alcohol) PHQ-2 Answer Date Recorded PHQ-2 Score 6 06/16/2018 Sex and Gender Information Value Date Recorded Sex Assigned at Not on file Gender Identity Not on file Sexual Orientation Not on file documented as of this encounter Plan of Treatment Upcoming Encounters Date Type Department Care Team (Late st Contact Info) Description 07/16/2023 3:30 PM SECTION LEADER AND MACHINE SETTER Office Visit [facility] [address] [place] [address] Shankar Peñ[place] [address] [place] [address] [place] [address] 2023 3:00 PM SECTION LEADER AND MACHINE SETTER Virtual Visit [facility] [address] [place] [address] 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, [facility] [address] [place] [address] 08/13/2023 2:30 PM SECTION LEADER AND MACHINE SETTER Office Visit [facility] [address] [place] [address] [place] [address] [place] [address] documented as of this encounter Visit Diagnoses Not on filedocumented in this encounter Additional Health Concerns Infection Onset Date Last Indicated Resolved Time COVID-19 05/07/2022 05/07/2022 05/28/2022 11:3 9 PM SECTION LEADER AND MACHINE SETTER Assessment Noted Time PHQ-9 Depression Total Score: 020 7:04 AM SECTION LEADER AND MACHINE SETTER documented as of this encounter Care Teams Final Expense Agent Relationship Specialty Start Date End Date Shankar Peñaloza MD [address] [place] [address] [place] [address] PCP - General Internal Medicine 09/25/13 Navdeep Waldron MD [facility] [address] [place] [address] Physical Medicine & Rehabilitation - Pain Medicine 07/07/13 Shankar Peñaloza MD [address] [place] [address] [place] [address] Assigned PCP 07/22/16 Capri Gant OD [address] [place] [address] [place] [address] Assigned Surgical Provider 04/29/21 05/31/22 Leeanna Joe MD [address] [place] [address] Assigned Rheumatology Provider 04/22/21 10/18/22 Richardson Alberts PA-C [address] [place] [address] Physician Drier Tender Gastroenterology 03/01/22 Shankar Peñaloza MD [address] [place] [address] [place] [address] Assigned Pain Medication Provider 06/17/22 Marielena Sunshine PA-C [address] [facility] [address] [place] [address] Physician Drier Tender Urology 10/03/22 Radha Rivas Personal Advocate & Liaison (PAL) 11/26/22 Marielena Sunshine PA-C [address] [facility] [address] [place], [place] [address] Assigned Surgical Provider 12/07/22 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 LICSW [address] [place] [address] Document Reviewer Document Reviewer - Clinical 06/23/23 documented as of this encounter
--- OUTSIDE RECORDS SUMMARY | 2023-07-02 14:30 | XMS_ITS | Encounter Summary ---
Author Name Unknown Organization [place] Address [address] [place] [address] Care Team Providers Care Primary Special Education Teacher Name Role Phone Navdeep Waldron MD Unavailable [phone] Shankar Peñaloza MD Primary Care Provider Shankar Peñaloza MD Unavailable [phone] Capri Gant OD Unavailable Leeanna Joe MD Unavailable Richardson Alberts PA-C Unavailable [phone] Shankar Peñaloza MD Unavailable [phone] Marielena Sunshine PA-C Unavailable Radha Rivas Unavailable Unavailable Marielena Sunshine PA-C Unavailable 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 Unavailable Encounter Details Date Type Department Care Team (Late st Contact Info) Description 02/08/2020 [facility]iaran Feliz [facility] [address] [facility] [address] [place] [address] Tiffani Ko MA Social History Tobacco Use Types Packs/Day [...] Exposure Response Date Recorded In the last month, have you been in contact with someone who was confirmed or suspected to have Coronavirus / COVID-19? No / Unsure 02/02/2020 12:58 PM CDT documented as of this encounter Plan of Treatment Upcoming Encounters Date Type Department Care Team (Late st Contact Info) Description 07/16/2023 3:30 PM MANAGER SOLUTION Office Visit [address] [place] [address] Shankar Peñaloza MD [address] [facility] [place] [address] 2023 3:00 PM MANAGER SOLUTION Virtual Visit [facility] [address] [place] [address] 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, [address] [address] 08/13/2023 2:30 PM MANAGER SOLUTION Office Visit [facility] [address] [place] [phone] [place] [address] [place], [place] [phone] documented as of this encounter Visit Diagnoses Not on filedocumented in this encounter Additional Health Concerns Infection Onset Date Last Indicated Resolved Time COVID-19 05/07/2022 05/07/2022 05/28/2022 11:3 9 PM MANAGER SOLUTION Assessment Noted Time PHQ-9 Depression Total Score: 19 020 7:04 AM MANAGER SOLUTION documented as of this encounter Care Teams Primary Special Education Teacher Relationship Specialty Start Date End Date Shankar Peñaloza MD [address] [place] [address] [place] [address] PCP - General Internal Medicine 09/25/13 Navdeep Waldron MD [facility] [address] [place] [address] Physical Medicine & Rehabilitation - Pain Medicine 07/07/13 Shankar Peñaloza MD [address] [place] [address] [place] [address] Assigned PCP 07/22/16 Capri Gant OD [address] [place] [address] [place] [address] Assigned Surgical Provider 04/29/21 05/31/22 Leeanna Joe MD 400 [place], [place] [address] Assigned Rheumatology Provider 04/22/21 10/18/22 Richardson Alberts PA-C [address] [place] [address] Physician Brake Tester Gastroenterology 03/01/22 Shankar Peñaloza MD [address] [place] [address] [place] [address] Assigned Pain Medication Provider 06/17/22 Marielena Sunshine PA-C [address] [facility] [address] [place] [address] Physician Brake Tester Urology 10/03/22 Radha Rivas Personal Advocate & Liaison (PAL) 11/26/22 Marielena Sunshine PA-C [address] [address] Assigned Surgical Provider 12/07/22 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 LICSW [address] [place] [address] Treating And Pumping Supervisor Treating And Pumping Supervisor - Clinical 06/23/23 documented as of this encounter
--- OUTSIDE RECORDS SUMMARY | 2023-07-02 14:30 | XMS_ITS | Encounter Summary ---
Author Name Unknown Organization [place] Address [address] [place] [address] Care Team Providers Care Plastics Spreading Machine Operator Name Role Phone Navdeep Waldron MD Unavailable [phone] Shankar Peñaloza MD Primary Care Provider Shankar Peñaloza MD Unavailable [phone] Capri Gant OD Unavailable Leeanna Joe MD Unavailable Richardson Alberts PA-C Unavailable [phone] Shankar Peñaloza MD Unavailable [phone] Marielena Sunshine PA-C Unavailable Radha Rivas Unavailable Unavailable Marielena Sunshine PA-C Unavailable [phone] 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 Unavailable Encounter Details Date Type Department Care Team (Late st Contact Info) Description 08/17/2019 Marco Antonio Feliz [facility] [place] [address] [place] [address] Shankar Peñaloza MD [address] [facility] [place] [address] Dysuria (Primary Dx) Social History Tobacco Use Types [...] st Contact Info) Description 07/16/2023 3:30 PM DIRECTOR COMMERCIAL SALES Office Visit [facility] [address] [place] [address] Shankar Peñ[place] [address] [place] [address] [place] LO[place] [address] 2023 3:00 PM DIRECTOR COMMERCIAL SALES Virtual Visit [facility] [address] [place] [address] 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, [address] [id number] 08/13/2023 2:30 PM DIRECTOR COMMERCIAL SALES Office Visit [facility] [address] [place] [address] [place] [address] [place], [place] [id number] documented as of this encounter Visit Diagnoses Diagnosis Dysuria- Primary documented in this encounter Additional Health Concerns Infection Onset Date Last Indicated Resolved Time COVID-19 05/07/2022 05/07/2022 05/28/2022 11:3 9 PM DIRECTOR COMMERCIAL SALES Assessment Noted Time PHQ-9 Depression Total Score: 020 7:04 AM DIRECTOR COMMERCIAL SALES documented as of this encounter Care Teams Plastics Spreading Machine Operator Relationship Specialty Start Date End Date Shankar Peñaloza MD [address] [place] [address] [place] [address] PCP - General Internal Medicine 09/25/[address] [facility] [address] [place] [address] Physical Medicine & Rehabilitation - Pain Medicine 07/07/13 Shankar Peñaloza MD [address] [place] [address] [place] [address] Assigned PCP 07/22/16 Capri Gant OD [address] [place] [address] [place] [address] Assigned Surgical Provider 04/29/21 05/31/22 Leeanna Joe MD [address] [place] [address] Assigned Rheumatology Provider 04/22/21 10/18/22 Richardson Alberts PA-C [address] [place] [address] Physician Sill Worker Gastroenterology 03/01/22 Shankar Peñaloza MD [address] [place] [address] [place] [address] Assigned Pain Medication Provider 06/17/22 Marielena Sunshine PA-C [address] [facility] [address] [place] [address] Physician Sill Worker Urology 10/03/22 Radha Rivas Personal Advocate & Liaison (PAL) 11/26/22 Marielena Sunshine PA-C [address] [place] [address] [place] [address] Assigned Surgical Provider 12/07/22 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 LICSW [address] [place] [address] Pickle Solution Maker Pickle Solution Maker - Clinical 06/23/23 documented as of this encounter
--- OUTSIDE RECORDS SUMMARY | 2023-07-02 14:30 | XMS_ITS | Encounter Summary ---
Author Name Unknown Organization [place] Address [address] [place] [address] Care Team Providers Care Teacher Tutor Name Role Phone Navdeep Waldron MD Unavailable [phone] Shankar Peñaloza MD Primary Care Provider Shankar Peñaloza MD Unavailable [phone] Capri Gant OD Unavailable [phone] Leeanna Joe MD Unavailable Richardson Alberts PA-C Unavailable Shankar Peñaloza MD Unavailable [phone] Marielena Sunshine PA-C Unavailable Radha Rivas Unavailable Unavailable Marielena Sunshine PA-C Unavailable 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 Unavailable Encounter Details Date Type Department Care Team (Late st Contact Info) Description 01/29/2021 [facility] [address] [address] Susan Arriaga Social History Tobacco Use Types Packs/Day Years Used Date Smoking Tobacco: Every Day Cigarettes 0.5 Smokeless Tobacco: Never Alcohol Use Standard Drinks/Week Comments No 0 (1 standard drink = 0.6 oz pur e alcohol) PHQ-2 Answer Date Recorded PHQ-2 Total Score (Adult) - Positive if 3 or more points; Administer PHQ-9 if positive 6 01/03/2021 Sex and Gender Information Value Date Recorded Sex Assigned at Not on file Gender Identity Not on file Sexual Orientation Not on file COVID-19 Exposure Response Date Recorded In the last month, have you been in contact with someone who was confirmed or suspected to have Coronavirus / COVID-19? No / Unsure 01/03/2021 2:55 PM CDT documented as of this encounter Plan of Treatment Upcoming Encounters Date Type Department Care Team (Late st Contact Info) Description 07/16/2023 3:30 PM YOUTH SPECIALIST Office Visit [place] [address] [place] [address] Shankar Peñaloza MD [address] [facility] [place] [address] 2023 3:00 PM YOUTH SPECIALIST Virtual Visit [facility] [address] [place] [address] 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, [facility] [address] [place] [address] 08/13/2023 2:30 PM YOUTH SPECIALIST Office Visit [facility] [address] [place] [phone] [place] [address] [place], [place] [phone] documented as of this encounter Visit Diagnoses Not on filedocumented in this encounter Additional Health Concerns Infection Onset Date Last Indicated Resolved Time COVID-19 05/07/2022 05/07/2022 05/28/2022 11:3 9 PM YOUTH SPECIALIST Assessment Noted Time PHQ-9 Depression Total Score: 16 021 7:02 AM CDT documented as of this encounter Care Teams Teacher Tutor Relationship Specialty Start Date End Date Shankra Peñaloza MD [address] [place] [address] [place] LO[place] [address] PCP - General Internal Medicine 09/25/13 Navdeep Waldron MD [facility] [address] [place] [address] Physical Medicine & Rehabilitation - Pain Medicine 07/07/13 Shankar Peñaloza MD [address] [place] [address] [place] [address] Assigned PCP 07/22/16 Capri Gant OD [address] [place] [address] [place] [address] Assigned Surgical Provider 04/29/21 05/31/22 Leeanna Joe MD 400 [place], [place] [address] Assigned Rheumatology Provider 04/22/21 10/18/22 Richardson Alberts PA-C [address] [place] [address] Physician Tree Doctor Gastroenterology 03/01/22 Shankar Peñaloza MD [address] [place] [address] [place] [address] Assigned Pain Medication Provider 06/17/22 Marielena Sunshine PA-C [address] [facility] [address] [place] [address] Physician Tree Doctor Urology 10/03/22 Radha Rivas Personal Advocate & Liaison (PAL) 11/26/22 Marielena Sunshine PA-C [address] [address] Assigned Surgical Provider 12/07/22 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 LICSW [address] [place] [address] Warehouse Team Leader Warehouse Team Leader - Clinical 06/23/23 documented as of this encounter
--- OUTSIDE RECORDS SUMMARY | 2023-07-02 14:30 | XMS_ITS | Encounter Summary ---
Author Name Unknown Organization [place] Address [address] [place] [address] Care Team Providers Care Dry Drug Worker Name Role Phone Navdeep Waldron MD Unavailable [phone] Shankar Peñaloza MD Primary Care Provider Shankar Peñaloza MD Unavailable [phone] Capri Gant OD Unavailable Leeanna Joe MD Unavailable Richardson AlbertsC Unavailable [phone] Shankar Peñaloza MD Unavailable [phone] Marielena Sunshine PA-C Unavailable Radha Rivas Unavailable Unavailable Marielena Sunshine PA-C Unavailable 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 Unavailable [phone] Encounter Details Date Type Department Care Team (Latest Contact Info) Description 01/03/2021 Historic Results Social History Tobacco Use Types Packs/Day Years [...] st Contact Info) Description 07/16/2023 3:30 PM CHILD WATCH ATTENDANT Office Visit [facility] [address] [place] [address] Shankar Peñaloza MD [address] [place] [address] [place] [address] 2023 3:00 PM CHILD WATCH ATTENDANT Virtual Visit [facility] [address] [place] [address] SinyishariyaCampose, [facility] [address] [place], [place] [id number] 08/13/2023 2:30 PM CHILD WATCH ATTENDANT Office Visit [facility] [address] [place] [phone] [place] [address] [place] [id number] documented as of this encounter Visit Diagnoses Not on filedocumented in this encounter Additional Health Concerns Infection Onset Date Last Indicated Resolved Time COVID-19 05/07/2022 05/07/2022 05/28/2022 11:3 9 PM CHILD WATCH ATTENDANT Assessment Noted Time PHQ-9 Depression Total Score: 16 021 7:02 AM CDT documented as of this encounter Care Teams Dry Drug Worker Relationship Specialty Start Date End Date Shankar Peñaloza MD [address] [place] [address] [place] [address] PCP - General Internal Medicine 09/25/13 Navdeep Waldron MD [facility] [address] [place] [address] Physical Medicine & Rehabilitation - Pain Medicine 07/07/13 Shankar Peñaloza MD [address] [place] [address] [place] [address] Assigned PCP 07/22/16 Capri Gant OD [address] [place] [address] [place] [address] Assigned Surgical Provider 04/29/21 05/31/22 Leeanna Joe MD [address] [place] [address] Assigned Rheumatology Provider 04/22/21 10/18/22 Richardson Alberts PA-C [address] [place] [address] Physician Head Resident Gastroenterology 03/01/22 Shankar Peñaloza MD [address] [place] [address] [place] [address] Assigned Pain Medication Provider 06/17/22 Marielena Sunshine PA-C [address] [facility] [address] [place] [address] Physician Head Resident Urology 10/03/22 Radha Rivas Personal Advocate & Liaison (PAL) 11/26/22 Marielena Sunshine PA-C [address] [place] [address] [place] [address] Assigned Surgical Provider 12/07/22 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 LICSW [address] [place] [address] Sales Assistant Displays Sales Assistant Displays - Clinical 06/23/23 documented as of this encounter
--- OUTSIDE RECORDS SUMMARY | 2023-07-02 14:30 | XMS_ITS | Encounter Summary ---
Author Name Unknown Organization [place] Address [address] [place] [address] Care Team Providers Care Attic Blower Name Role Phone Navdeep Waldron MD Unavailable [phone] Shankar Peñaloza MD Primary Care Provider Shankar Peñaloza MD Unavailable [phone] Capri Gant OD Unavailable Leeanna Joe MD Unavailable Richardson Alberts PAGerardC Unavailable [phone] Shankar Peñaloza MD Unavailable [phone] Marielena Sunshine PA-C Unavailable [phone] Radha Rivas Unavailable Unavailable Marielena Sunshine PA-C Unavailable 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 Unavailable Encounter Details Date Type Department Care Team (Late st Contact Info) Description 08/31/2020 Documentation Only INTERFACED REPORT Unknown, Provider Social [...] have Coronavirus / COVID-19? No / Unsure 08/04/2020 1:02 PM CONSTRUCTION EQUIPMENT MECHANIC documented as of this encounter Plan of Treatment Upcoming Encounters Date Type Department Care Team (Late st Contact Info) Description 07/16/2023 3:30 PM CONSTRUCTION EQUIPMENT MECHANIC Office Visit [address] [place] [address] Shankar Peñaloza MD [address] [place] [address] [place] [address] 2023 3:00 PM CONSTRUCTION EQUIPMENT MECHANIC Virtual Visit [facility] Mental Health and Addiction [address] [place] [address] 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, [facility] [address] [place] [address] 08/13/2023 2:30 PM CONSTRUCTION EQUIPMENT MECHANIC Office Visit [facility] [id number] [place] [address] [place] [address] [place] [address] documented as of this encounter Visit Diagnoses Not on filedocumented in this encounter Additional Health Concerns Infection Onset Date Last Indicated Resolved Time COVID-19 05/07/2022 05/07/2022 05/28/2022 11:3 9 PM CONSTRUCTION EQUIPMENT MECHANIC Assessment Noted Time PHQ-9 Depression Total Score: 19 020 7:04 AM CONSTRUCTION EQUIPMENT MECHANIC documented as of this encounter Care Teams Attic Blower Relationship Specialty Start Date End Date Shankar Peñaloza MD [address] [place] [address] [place] [address] PCP - General Internal Medicine 09/25/13 Navdeep Waldron MD [facility] [address] [place] [address] Physical Medicine & Rehabilitation - Pain Medicine 07/07/13 Shankar Peñaloza MD [address] [place] [address] [place] [address] Assigned PCP 07/22/16 Capri Gant OD [address] [place] [address] [place] [address] Assigned Surgical Provider 04/29/21 05/31/22 Leeanna Joe MD [address] [place] [address] Assigned Rheumatology Provider 04/22/21 10/18/22 Richardson Alberts PA-C [address] [place] [address] Physician Security Field Supervisor Gastroenterology 03/01/22 Shankar Peñaloza MD [address] [place] [address] [place] [address] Assigned Pain Medication Provider 06/17/22 Marielena Sunshine PA-C [address] [facility] [address] [place], [place] [address] Physician Security Field Supervisor Urology 10/03/22 Radha Rivas Personal Advocate & Liaison (PAL) 11/26/22 Marielena Sunshine PA-C [address] [place] [address] Assigned Surgical Provider 12/07/22 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, [facility] [address] [place] [address] Oracle Database Architect Oracle Database Architect - Clinical 06/23/23 documented as of this encounter
--- OUTSIDE RECORDS SUMMARY | 2023-07-02 14:30 | XMS_ITS | Encounter Summary ---
Author Name Unknown Organization [place] Address [address] [place] [address] Care Team Providers Care Animal Laboratory Helper Name Role Phone Navdeep Waldron MD Unavailable [phone] Shankar Peñaloza MD Primary Care Provider [phone] Shankar Peñaloza MD Unavailable [phone] Capri Gant OD Unavailable Leeanna Joe MD Unavailable Richardson Alberts PA-C Unavailable [phone] Shankar Peñaloza MD Unavailable [phone] Marielena Sunshine PA-C Unavailable Radha Rivas Unavailable Unavailable Marielena Sunshine PA-C Unavailable 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 Unavailable Reason for Visit * Reason Onset Date Comments Medication Question 07/30/2019 Fentanyl pat ches dose - decreased Encounter Details Date Type Department Care Team (Late st Contact Info) Description 07/30/2019 [facility] [address] [facility] [address] [place] [address] Shankar Peñaloza MD [address] [facility] [place] [address] Medication Question (Fentanyl patches dose... Social History Tobacco Use Types Packs/Day Years [...] encounter Miscellaneous Notes * Telephone Encounter - Magy Villanueva RN - 08/03/2019 2:27 PM INDUSTRIAL ENGINEERING INTERN Called [employer] PA team at [phone] to check on appeal status. I was told that appeal is handled directly by [facility] & advised to contact them. Called [facility] Provider line at [phone](Pt ID# [id number]). I was told that they received the appeal letter on 07/30, is under review, they are unable to tell me anything more, might take 7-10 days. The case # for this appeal is [id number]. Will await for the response from insurance. James water fitness instructor Nurse STRIAL ENGINEERING INTERN * Telephone Encounter - Shankar Peñaloza MD - 07/30/2019 4:29 PM CST PA was denied. Appeal letter faxed. STRIAL ENGINEERING INTERN * Telephone Encounter - Magy Villanueva RN - 07/30/2019 2:44 PM INDUSTRIAL ENGINEERING INTERN See pt's [facility] message. Huddled with - will try to decrease pt's fentanyl patches from 50 mcg to 37.5 mcg to see whether that helps her fatigue. New rx for fentanyl 37.5 mcg patches handed to pt during OV. Called Gloria at [phone](AV) to get details. I was told that pt picked up 50 mcg patches just couple of days back. So, her insurance is refusing to pay for another rx eventough its for a decreased dose. Need to get an approval through her insurance. No PA needed. Called [facility] pharmacy help desk at [phone] to get approval from insurance. Provided clarification to Shilpa(pharmacist), started the approval process. She is unable to approve the med dose pattern changer the phone, but marked it urgent, will get back to us with in 24 hrs. Ref # is [id number].Notified pt through as well. Notes from 07/28/2019: Reviewed ongoing health issues. RA with significant pain. Last fall fentanyl patch was increased from 25 to 50 mcg. Pain is better but has fatigue as noted. Fatigue. dDx includes UTI, sinusitis, increased fentanyl dose, other. Decrease fentanyl to 37.5 mcg EVERETT Ramirez Triage Nurse STRIAL ENGINEERING INTERN documented in this encounter Plan of Treatment Upcoming Encounters Date Type Department Care Team (Late st Contact Info) Description 07/16/2023 3:30 PM INDUSTRIAL ENGINEERING INTERN Office Visit [address] [place] [phone] Shankar Peñaloza MD [address] [facility] [place] [address] 2023 3:00 PM INDUSTRIAL ENGINEERING INTERN Virtual Visit [facility] [address] [place] 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 [id number] 08/13/2023 2:30 PM INDUSTRIAL ENGINEERING INTERN Office Visit [facility] [address] [place] [address] [place] [address] [place] [address] documented as of this encounter Visit Diagnoses Not on filedocumented in this encounter Additional Health Concerns Infection Onset Date Last Indicated Resolved Time COVID-19 05/07/2022 05/07/2022 05/28/2022 11:3 9 PM INDUSTRIAL ENGINEERING INTERN Assessment Noted Time PHQ-9 Depression Total Score: 020 7:04 AM INDUSTRIAL ENGINEERING INTERN documented as of this encounter Care Teams Animal Laboratory Helper Relationship Specialty Start Date End Date Shankar Peñaloza MD [address] [place] [address] [place] [address] PCP - General Internal Medicine 09/25/13 Navdeep Waldron MD [facility] [address] [place] [address] Physical Medicine & Rehabilitation - Pain Medicine 07/07/13 Shankar Peñaloza MD [address] [place] [address] [place] [address] Assigned PCP 07/22/16 Capri Gant OD [address] [place] [address] [place] [address] Assigned Surgical Provider 04/29/21 05/31/22 Leeanna Joe MD [address] [place] [address] Assigned Rheumatology Provider 04/22/21 10/18/22 Richardson Alberts PA-C [address] [place] [address] Physician Guest Services Gastroenterology 03/01/22 Shankar Peñaloza MD [address] [facility] [place] [address] Assigned Pain Medication Provider 06/17/22 Marielena Sunshine PA-C [address] [facility] 377 [place] [address] Physician Guest Services Urology 10/03/22 Radha Rivas Personal Advocate & Liaison (PAL) 11/26/22 Marielena Sunshine PA-C [address] [facility] 500 [place], [place] [address] Assigned Surgical Provider 12/07/22 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 LICSW [address] [place] [address] Corn Cutter Operator Corn Cutter Operator - Clinical 06/23/23 documented as of this encounter
--- OUTSIDE RECORDS SUMMARY | 2023-07-02 14:30 | XMS_ITS | Encounter Summary ---
Author Name Unknown Organization [place] Address [address] [place] [address] Care Team Providers Care Dog Obedience Instructor Name Role Phone Navdeep Waldron MD Unavailable [phone] Shankar Peñaloza MD Primary Care Provider [phone] Shankar Peñaloza MD Unavailable [phone] Capri Gant OD Unavailable [phone] Leeanna Joe MD Unavailable Richardson Alberts-C Unavailable [phone] Shankar Peñaloza MD Unavailable [phone] Marielena Sunshine PA-C Unavailable Radha Rivas Unavailable Unavailable Marielena Sunshine PA-C Unavailable 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 Unavailable Encounter Details Date Type Department Care Team (Late st Contact Info) Description 11/14/2020 Marco Antonio [facility] [place] [address] [place] [address] Shankar Peñaloza MD [address] [facility] [place] [address] Fibromyalgia; Dermatitis Social History Tobacco Use Types Packs/Day Years Used Date Smoking Tobacco: Every Day Cigarettes 0.5 Smokeless Tobacco: Never Alcohol Use Standard Drinks/Week Comments No 0 (1 standard drink = 0.6 oz pur e alcohol) PHQ-2 Answer Date Recorded PHQ-2 Total Score (Adult) - Positive if 3 or more points; Administer PHQ-9 if positive 4 11/14/2020 Sex and Gender Information Value Date Recorded Sex Assigned at Not on file Gender Identity Not on file Sexual Orientation Not on file documented as of this encounter Miscellaneous Notes * Telephone Encounter - Shankar Peñaloza MD - 11/14/2020 8:58 AM CDT PHQ 03/24/2018 07/27/2019 11/14/2020 PHQ-9 Total Score 21 19 14 Q9: Thoughts of better off /self-harm past 2 weeks Nearly every day More than half the days More than half the days F/U: Thoughts of suicide or self-harm Yes No No F/U: Self harm-plan No - - F/U: Self-harm action No - - F/U: Safety concerns No No No documented in this encounter Plan of Treatment Upcoming Encounters Date Type Department Care Team (Late st Contact Info) Description 07/16/2023 3:30 PM AUTO BENCH MECHANIC [facility] [address] [place] [address] [address] [place] [phone] Shankar Peñaloza MD [address] [place] [address] [place] [address] 2023 3:00 PM AUTO BENCH MECHANIC Virtual Visit [facility] [address] [place] [address] 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, [facility] [address] [place] [address] 08/13/2023 2:30 PM AUTO BENCH MECHANIC Office [facility] [address] [place] [address] [place] [address] [place] [address] documented as of this encounter Visit Diagnoses Diagnosis Fibromyalgia Mylagia and myositis, unspecified Dermatitis Contact dermatitis and other eczema, due to unspecified cause documented in this encounter Additional Health Concerns Infection Onset Date Last Indicated Resolved Time COVID-19 05/07/2022 05/07/2022 05/28/2022 11:3 9 PM AUTO BENCH MECHANIC Assessment Noted Time PHQ-9 Depression Total Score: 14 021 10:34 AM CDT documented as of this encounter Care Teams Dog Obedience Instructor Relationship Specialty Start Date End Date Shankar Peñaloza MD [address] [place] [address] [place] [address] PCP - General Internal Medicine 09/25/13 Navdeep Waldron MD [facility] [address] [place] [address] Physical Medicine & Rehabilitation - Pain Medicine 07/07/13 Shankar Peñaloza MD [address] [place] [address] [place] [address] Assigned PCP 07/22/16 Capri Gant OD [address] [place] [address] [place] [address] Assigned Surgical Provider 04/29/21 05/31/22 Leeanna Joe MD [address] [place] [address] Assigned Rheumatology Provider 04/22/21 10/18/22 Richardson Albetrs PA-C [address] [place] [address] Physician Cafeteria Monitor Gastroenterology 03/01/22 Shankar Peñaloza MD [address] [facility] [place] [address] Assigned Pain Medication Provider 06/17/22 Marielena Sunshine PA-C [address] [facility] [address] [place], [place] [address] Physician Cafeteria Monitor Urology 10/03/22 Radha Rivas Personal Advocate & Liaison (PAL) 11/26/22 Marielena Sunshine PA-C [address] [facility] [address] [facility] 500 [place] [address] Assigned Surgical Provider 12/07/22 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 LICSW [address] [place] [address] Sorter Operator Sorter Operator - Clinical 06/23/23 documented as of this encounter
--- OUTSIDE RECORDS SUMMARY | 2023-07-02 14:30 | XMS_ITS | Encounter Summary ---
Author Name Unknown Organization [place] Address [address] [place] [address] Care Team Providers Care Cnc Maintenance Technician Name Role Phone Navdeep Waldron MD Unavailable [phone] Shankar Peñaloza MD Primary Care Provider Shankar Peñaloza MD Unavailable [phone] Capri Gant OD Unavailable Leeanna Joe MD Unavailable Richardson Alberts PA-C Unavailable [phone] Shankar Peñaloza MD Unavailable [phone] Marielena Sunshine PA-C Unavailable Radha Rivas Unavailable Unavailable Marielena Sunshine PA-C Unavailable 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 Unavailable Reason for Visit * Reason Onset Date Comments Prior Authorization 09/15/2020 fentaNYL (DU RAGESIC) 25 mcg/hr 72 hr patch- APPROVED Encounter Details Date Type Department Care Team (Late st Contact Info) Description 09/15/[address] [place] [address] Shankar Peñaloza MD [address] [facility] [address] [place], [place] [address] Prior Authorization (fentaNYL (DURAGESIC) 25 mcg/hr 72 hr patch- APPROVED) Social History Tobacco Use Types Packs/Day Years [...] Miscellaneous Notes * Telephone Encounter - Radha Gayle - 09/20/2020 1:59 PM CDT Images from the original note were not included. Prior Authorization Approval Authorization Effective Date: 09/18/2020 Authorization Expiration Date: 03/20/2021 Medication: fentaNYL (DURAGESIC) 25 mcg/hr 72 hr patch- APPROVED Approved Dose/Quantity: 10 PATCHES Reference #: [id number] Insurance Company: [facility]) - Expected CoPay: CoPay Card Available: Foundation Assistance Needed: Which Pharmacy is filling the prescription (Not needed for infusion/clinic administered): [facility] #[id number] [facility] [address] Pharmacy Notified: Yes Patient Notified: Yes Central Prior Authorization Team * Telephone Encounter - Radha Gayle - 09/18/2020 4:30 PM CDT Images from the original note were not included. PA Initiation Medication: fentaNYL (DURAGESIC) 25 mcg/hr 72 hr patch- INITIATED Insurance Company: [facility]) - Pharmacy Filling the Rx: [id number] - [place], [place] - [address] Filling Pharmacy Filling Pharmacy Start Date: 09/18/2020 * Telephone Encounter - Beverly Duque CMA - 09/15/2020 4:32 PM CDT Prior Authorization Retail Medication Request Medication/Dose: fentaNYL (DURAGESIC) 25 mcg/hr 72 hr patch ICD code (if different than what is on RX): M79.7 Previously Tried and Failed: NA Rationale: NA Insurance Name: MEDICARE Pharmacy Information (if different than what is on RX) Name: [place] documented in this encounter Plan of Treatment Upcoming Encounters Date Type Department Care Team (Late st Contact Info) Description 07/16/2023 3:30 PM PIT WORKER POWER SHOVEL Office Visit [facility] [address] [facility] [address] [place] [phone] Shankar Peñaloza MD [address] [facility] [place] [address] 2023 3:00 PM PIT WORKER POWER SHOVEL Virtual Visit [facility] [address] [place] [address] 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, [address] [address] 08/13/2023 2:30 PM PIT WORKER POWER SHOVEL Office Visit [address] [address] [place] [address] [place] [address] documented as of this encounter Visit Diagnoses Not on filedocumented in this encounter Additional Health Concerns Infection Onset Date Last Indicated Resolved Time COVID-19 05/07/2022 05/07/2022 05/28/2022 11:3 9 PM PIT WORKER POWER SHOVEL Assessment Noted Time PHQ-9 Depression Total Score: 020 7:04 AM PIT WORKER POWER SHOVEL documented as of this encounter Care Teams Cnc Maintenance Technician Relationship Specialty Start Date End Date Shankar Peñaloza MD [address] [place] [address] [place] [address] PCP - General Internal Medicine 09/25/13 Navdeep Waldron MD [facility] [address] [place] [address] Physical Medicine & Rehabilitation - Pain Medicine 07/07/13 Shankar Peñaloza MD [address] [place] [address] [place] [address] Assigned PCP 07/22/16 Capri Gant OD [address] [place] [address] [place] [address] Assigned Surgical Provider 04/29/21 05/31/22 Leeanna Joe MD 400 [place] [address] Assigned Rheumatology Provider 04/22/21 10/18/22 Richardson Alberts PA-C [address] [place] [address] Physician Dog Licenser Gastroenterology 03/01/22 Shankar Peñaloza MD [address] [facility] [place] [address] Assigned Pain Medication Provider 06/17/22 Marielena Snushine PA-C [address] [facility] 377 [place] [address] Physician Dog Licenser Urology 10/03/22 Radha Rivas Personal Advocate & Liaison (PAL) 11/26/22 Marielena Sunshine PA-C [address] [facility] 500 [place] [address] Assigned Surgical Provider 12/07/22 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 LICSW [address] [place] [address] Mixed Livestock Farmer Mixed Livestock Farmer - Clinical 06/23/23 documented as of this encounter
--- OUTSIDE RECORDS SUMMARY | 2023-07-02 14:30 | XMS_ITS | Encounter Summary ---
Author Name Unknown Organization [place] Address [address] [place] [address] Care Team Providers Care Machine Operator Hay Stacker Name Role Phone Navdeep Waldron MD Unavailable [phone] Shankar Peñaloza MD Primary Care Provider Shankar Peñaloza MD Unavailable [phone] Capri Gant OD Unavailable [phone] Leeanna Joe MD Unavailable Richardson Alberts PA-C Unavailable [phone] Shankar Peñaloza MD Unavailable [phone] Marielena Sunshine PA-C Unavailable Radha Rivas Unavailable Unavailable Marielena Sunshine PA-C Unavailable 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 Unavailable [phone] Encounter Details Date Type Department Care Team (Late st Contact Info) Description 01/06/2021 MyC Medical Advice [facility] Scheduling [facility] [place] [phone] Ana Michele Social History Tobacco Use Types Packs/Day Years [...] st Contact Info) Description 07/16/2023 3:30 PM BINGO USHER Office Visit [address] [place] [address] Shankar Peñaloza MD [address] [facility] [place] [address] 2023 3:00 PM BINGO USHER Virtual Visit [facility] [address] [place] [address] 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, [facility] [address] [place] [address] 08/13/2023 2:30 PM BINGO USHER Office Visit [facility] [address] [place] [phone] [place] [address] [place], [place] [phone] documented as of this encounter Visit Diagnoses Not on filedocumented in this encounter Additional Health Concerns Infection Onset Date Last Indicated Resolved Time COVID-19 05/07/2022 05/07/2022 05/28/2022 11:3 9 PM BINGO USHER Assessment Noted Time PHQ-9 Depression Total Score: 16 021 7:02 AM CDT documented as of this encounter Care Teams Machine Operator Hay Stacker Relationship Specialty Start Date End Date Shankar Peñaloza MD [address] [place] [address] [place] [address] PCP - General Internal Medicine 09/25/13 Navdeep Waldron MD [facility] [address] [place] [address] Physical Medicine & Rehabilitation - Pain Medicine 07/07/13 Shankar Peñaloza MD [address] [place] [address] [place] [address] Assigned PCP 07/22/16 Capri Gant OD [address] [place] [address] [place] [address] Assigned Surgical Provider 04/29/21 05/31/22 Leeanna Joe MD 400 [place], [place] [address] Assigned Rheumatology Provider 04/22/21 10/18/22 Richardson Alberts PA-C [address] [place] [address] Physician Supervisor Grips Gastroenterology 03/01/22 Shankar Peñaloza MD [address] [place] [address] [place] [address] Assigned Pain Medication Provider 06/17/22 Marielena Sunshine PA-C [address] [facility] [address] [place] [address] Physician Supervisor Grips Urology 10/03/22 Radha Rivas Personal Advocate & Liaison (PAL) 11/26/22 Marielena Sunshine PA-C [address] [address] Assigned Surgical Provider 12/07/22 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 LICSW [address] [place] [address] Lead Software Development Engineer Lead Software Development Engineer - Clinical 06/23/23 documented as of this encounter
--- OUTSIDE RECORDS SUMMARY | 2023-07-02 14:30 | XMS_ITS | Encounter Summary ---
Author Name Unknown Organization [facility] Address [address] [place] [address] Care Team Providers Care Service Desk Director Name Role Phone Navdeep Waldron MD Unavailable [phone] Shankar Peñaloza MD Primary Care Provider Shankar Peñaloza MD Unavailable [phone] Shankar Peñaloza MD Unavailable [phone] Capri Gant OD Unavailable Leeanna Joe MD Unavailable Richardson Alberts PA-C Unavailable [phone] Shankar Peñaloza MD Unavailable [phone] Marielena SunshineC Unavailable [phone] Radha Rivas Unavailable Unavailable Marielena SunshineC Unavailable 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 Unavailable [phone] Reason for Visit * Reason Onset Date Comments Refill Request 04/30/2017 Dilaudid 2mg, Fe ntanyl 25mcg Encounter Details Date Type Department Care Team (Late st Contact Info) Description 04/30/2017 [facility] [address] [place] [address] [address] [place] [address] Shankar Peñaloza MD [address] [facility] [place] [address] Refill Request (Dilaudid 2mg, Fentanyl 25mcg) Social History Tobacco Use Types Packs/Day Years Used Date Smoking Tobacco: Every Day Cigarettes 0.5 Smokeless Tobacco: Never Alcohol Use Standard Drinks/Week Comments No 0 (1 standard drink = 0.6 oz pur e alcohol) Sex and Gender Information Value Date Recorded Sex Assigned at Not on file Gender Identity Not on file Sexual Orientation Not on file documented as of this encounter Miscellaneous Notes * Telephone Encounter - Andra New MA - 05/02/2017 11:43 AM CST Both Rx's brought to [facility] pharmacy. Andra New MA MESSENGER * Telephone Encounter - Shankar Peñaloza MD - 05/02/2017 11:07 AM CST Rx refilled. In my outbasket. MESSENGER * Telephone Encounter - Claire Montgomery RN - 05/02/2017 10:40 AM MAIL MESSENGER FENTANYL 25 MCG PATCH Last rx written: 04/02/17 # 10 w/ 0 refills [place] FERRYBOAT HELPER reviewed- last filled: 04/02/17 Narc agreement: #10/ for 30 days DILAUDID 2 MG Last rx written: 04/02/17 # 60 [place] FERRYBOAT HELPER reviewed- last filled: 04/02/17 Narc agreement: #60 for 30 days Last OV: 03/03/17 for Routine Exam Unable to fill per standing order routed to Dr. Peñaloza for approval. Walk the RX to [facility]. Problem List Complete: Yes FERRYBOAT HELPER checked in past 6 months? Yes 05/02/17 Claire Montgomery RN MESSENGER documented in this encounter Plan of Treatment Upcoming Encounters Date Type Department Care Team (Late st Contact Info) Description 07/16/2023 3:30 PM MAIL MESSENGER Office Visit [facility] Keisha [address] [place] [address] Shankar Peñ[place] [address] [place] [address] [place] [address] 2023 3:00 PM MAIL MESSENGER Virtual Visit [facility] Mental Health and Addiction [address] [place] [address] 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, [facility] [address] [place] [address] 08/13/2023 2:30 PM MAIL MESSENGER Office Visit [facility] [address] [place] [address] [place] [address] [place], [place] [id number] documented as of this encounter Visit Diagnoses Diagnosis DDD (degenerative disc disease), cervical Degeneration of cervical intervertebral disc Fibromyalgia Mylagia and myositis, unspecified Chronic pain syndrome documented in this encounter Additional Health Concerns Infection Onset Date Last Indicated Resolved Time COVID-19 05/07/2022 05/07/2022 05/28/2022 11:3 9 PM MAIL MESSENGER Assessment Noted Time PHQ-9 Depression Total Score: 18 017 7:07 AM CDT documented as of this encounter Care Teams Service Desk Director Relationship Specialty Start Date End Date Shankar Peñaloza MD [address] [place] [address] [place] [address] PCP - General Internal Medicine 09/25/13 Shankar Peñaloza MD [address] [place] [address] [place] [address] PCP - Assigned PCP 07/22/16 08/11/18 Navdeep Waldron MD [facility] [address] [place] [address] Physical Medicine & Rehabilitation - Pain Medicine 07/07/13 Shankar Peñaloza MD [address] [place] [address] [place] [address] Assigned PCP 07/22/16 Capri Gant OD [address] [place] [address] [place] [address] Assigned Surgical Provider 04/29/21 05/31/22 Leeanna Joe MD [address] [place] [address] Assigned Rheumatology Provider 04/22/21 10/18/22 Richardson Alberts PA-C [address] [place] [address] Physician Detail Technician Gastroenterology 03/01/22 Shankar Peñaloza MD [address] [place] [address] [place] [address] Assigned Pain Medication Provider 06/17/22 Marielena Sunshine PA-C [address] [facility] [address] [place] [address] Physician Detail Technician Urology 10/03/22 Radha Rivas Personal Advocate & Liaison (PAL) 11/26/22 Marielena Sunshine PA-C [address] [place] [address] Assigned Surgical Provider 12/07/22 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, [facility] [address] [place] [address] Chairman And Chief Executive Officer Chairman And Chief Executive Officer - Clinical 06/23/23 documented as of this encounter
--- OUTSIDE RECORDS SUMMARY | 2023-07-02 14:30 | XMS_ITS | Encounter Summary ---
Author Name Unknown Organization [facility] Address [address] [place] [address] Care Team Providers Care Contact Center Assistant Name Role Phone Navdeep Waldron MD Unavailable [phone] Shankar Peñaloza MD Primary Care Provider Shankar Peñaloza MD Unavailable [phone] Capri Gant OD Unavailable Leeanna Joe MD Unavailable Richardson AlbertsC Unavailable [phone] Shankar Peñaloza MD Unavailable [phone] Marielena Sunshine PA-C Unavailable [phone] Radha Rivas Unavailable Unavailable Marielena Sunshine PA-C Unavailable 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 Unavailable Encounter Details Date Type Department Care Team (Late st Contact Info) Description 05/08/2021 Marco Antonio Feliz [facility] Keisha [address] [place] [address] Shankar Peñaloza MD [address] [facility] [place] [address] Social History Tobacco Use Types Packs/Day Years Used Date Smoking Tobacco: Former Cigarettes Q uit: 02/12/2021 Smokeless Tobacco: Never Alcohol Use Standard Drinks/Week Comments No 0 (1 standard drink = 0.6 oz pur e alcohol) PHQ-2 Answer Date Recorded PHQ-2 Score 6 04/19/2021 Sex and Gender Information Value Date Recorded Sex Assigned at Not on file Gender Identity Not on file Sexual Orientation Not on file COVID-19 Exposure Response Date Recorded In the last month, have you been in contact with someone who was confirmed or suspected to have Coronavirus / COVID-19? No / Unsure 05/02/2021 3:27 PM TRIAL MANAGER documented as of this encounter Plan of Treatment Upcoming Encounters Date Type Department Care Team (Late st Contact Info) Description 07/16/2023 3:30 PM TRIAL MANAGER Office Visit [place] [address] [place] [address] Shankar Peñaloza MD [address] [facility] [place] [address] 2023 3:00 PM TRIAL MANAGER Virtual Visit [facility] [address] [place] [address] 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, [facility] [address] [place], [place] [address] 08/13/2023 2:30 PM TRIAL MANAGER Office Visit [facility] [address] [place] [address] [place] [address] [place] [address] documented as of this encounter Visit Diagnoses Not on filedocumented in this encounter Additional Health Concerns Infection Onset Date Last Indicated Resolved Time COVID-19 05/07/2022 05/07/2022 05/28/2022 11:3 9 PM TRIAL MANAGER Assessment Noted Time PHQ-9 Depression Total Score: 18 021 7:30 AM TRIAL MANAGER documented as of this encounter Care Teams Contact Center Assistant Relationship Specialty Start Date End Date Shankar Peñaloza MD [address] [place] [address] [place] [address] PCP - General Internal Medicine 09/25/13 Navdeep Waldron MD [facility] [address] [place] [address] Physical Medicine & Rehabilitation - Pain Medicine 07/07/13 Shankar Peñaloza MD [address] [place] [address] [place] [address] Assigned PCP 07/22/16 Capri Gant OD [address] [place] [address] [place] [address] Assigned Surgical Provider 04/29/21 05/31/22 Leeanna Joe MD [address] [place] [address] Assigned Rheumatology Provider 04/22/21 10/18/22 Richardson Alberts PA-C [address] [place] [address] Physician Sea Kayaking Guide Gastroenterology 03/01/22 Shankar Peñaloza MD [address] [place] [address] [place] [address] Assigned Pain Medication Provider 06/17/22 Marielena Sunshine PA-C [address] [facility] [address] [place] [address] Physician Sea Kayaking Guide Urology 10/03/22 Radha Rivas Personal Advocate & Liaison (PAL) 11/26/22 Marielena Sunshine PA-C [address] [facility] [address] [place] [address] Assigned Surgical Provider 12/07/22 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 LICSW [address] [place] [address] Hob Grinder Hob Grinder - Clinical 06/23/23 documented as of this encounter
--- OUTSIDE RECORDS SUMMARY | 2023-07-02 14:30 | XMS_ITS | Encounter Summary ---
Author Name Unknown Organization [facility] Address [address] [place] [address] Care Team Providers Care Pearler Name Role Phone Navdeep Waldron MD Unavailable [phone] Shankar Peñaloza MD Primary Care Provider Shankar Peñaloza MD Unavailable [phone] Shankar Peñaloza MD Unavailable [phone] Capri Gant OD Unavailable Leeanna Joe MD Unavailable Richardson Alberts PA-C Unavailable Shankar Peñaloza MD Unavailable [phone] Marielena SunshineC Unavailable Radha Rivas Unavailable Unavailable Marielena Sunshine PA-C Unavailable [phone] 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 Unavailable Encounter Details Date Type Department Care Team (Latest Contact Info) Description 08/16/2016 Historic Results Social History Tobacco Use Types [...] st Contact Info) Description 07/16/2023 3:30 PM TELEPHONE SERVICE REPRESENTATIVE Office Visit [facility] [place] [address] [place] [address] Shankar Peñaloza MD [address] [place] [address] [place] [address] 2023 3:00 PM TELEPHONE SERVICE REPRESENTATIVE Virtual Visit [facility] Mental Health and Addiction [facility] [address] [place] [address] 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, [facility] [address] [place] [address] 08/13/2023 2:30 PM TELEPHONE SERVICE REPRESENTATIVE Office Visit [facility] [address] [place] [address] [place] [address] [place], [place] [phone] documented as of this encounter Visit Diagnoses Not on filedocumented in this encounter Additional Health Concerns Infection Onset Date Last Indicated Resolved Time COVID-19 05/07/2022 05/07/2022 05/28/2022 11:3 9 PM TELEPHONE SERVICE REPRESENTATIVE Assessment Noted Time PHQ-9 Depression Total Score: 16 017 7:14 AM TELEPHONE SERVICE REPRESENTATIVE documented as of this encounter Care Teams Pearler Relationship Specialty Start Date End Date Shankar Peñaloza MD [address] [place] [address] [place] [address] PCP - General Internal Medicine 09/25/13 Shankar Peñaloza MD [address] [place] [address] [place] [address] PCP - Assigned PCP 07/22/16 08/11/18 Navdeep Waldron MD [facility] [address] [place] [address] Physical Medicine & Rehabilitation - Pain Medicine 07/07/13 Shankar Peñaloza MD [address] [place] [address] [place] [address] Assigned PCP 07/22/16 Capri Gant OD [address] [place] [address] [place] [address] Assigned Surgical Provider 04/29/21 05/31/22 Leeanna Joe MD [address] [place] [address] Assigned Rheumatology Provider 04/22/21 10/18/22 Richardson Alberts PA-C [address] [place] [address] Physician Human Resources Benefits Specialist Gastroenterology 03/01/22 Shankar Peñaloza MD [address] [place] [address] [place] [address] Assigned Pain Medication Provider 06/17/22 Marielena Sunshine PA-C [address] [facility] [address] [place] [address] Physician Human Resources Benefits Specialist Urology 10/03/22 Radha Rivas Personal Advocate & Liaison (PAL) 11/26/22 FerMarielena wade PA-C [address] [address] Assigned Surgical Provider 12/07/22 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 LICSW [address] [place] [address] Cover Machine Operator Cover Machine Operator - Clinical 06/23/23 documented as of this encounter
--- OUTSIDE RECORDS SUMMARY | 2023-07-02 14:30 | XMS_ITS | Encounter Summary ---
Author Name Unknown Organization [facility] Address [address] [place] [address] Care Team Providers Care Nurse Ldr Name Role Phone Navdeep Waldron MD Unavailable [phone] Shankar Peñaloza MD Primary Care Provider Shankar Peñaloza MD Unavailable [phone] Capri Gant OD Unavailable Leeanna Joe MD Unavailable Richardson Alberts PA-C Unavailable [phone] Shankar Peñaloza MD Unavailable [phone] Marielena Sunshine PA-C Unavailable [phone] Radha Rivas Unavailable Unavailable Marielena Sunshine PA-C Unavailable 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 Unavailable [phone] Encounter Details Date Type Department Care Team (Late st Contact Info) Description 06/12/2021 Marco Antonio Feliz [facility] [place] [address] [place] [phone] Capri Loyola, GREEK PROFESSOR [address] [facility] [place] [address] Social History Tobacco Use Types Packs/Day Years [...] have Coronavirus / COVID-19? No / Unsure 06/05/2021 11:03 AM WOOD CARVER documented as of this encounter Plan of Treatment Upcoming Encounters Date Type Department Care Team (Late st Contact Info) Description 07/16/2023 3:30 PM WOOD CARVER Office Visit [place] [address] [place] [address] Shankar Peñaloza MD [address] [facility] [place] [address] 2023 3:00 PM WOOD CARVER Virtual Visit [facility] Mental Health and Addiction Clinic [address] [place] [address] 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, [facility] [address] [place], [place] [address] 08/13/2023 2:30 PM WOOD CARVER Office Visit [facility] [address] [place] [address] [place] [address] [place] [address] documented as of this encounter Visit Diagnoses Not on filedocumented in this encounter Additional Health Concerns Infection Onset Date Last Indicated Resolved Time COVID-19 05/07/2022 05/07/2022 05/28/2022 11:3 9 PM WOOD CARVER Assessment Noted Time PHQ-9 Depression Total Score: 17 022 7:02 AM WOOD CARVER documented as of this encounter Care Teams Nurse Ldr Relationship Specialty Start Date End Date Shankar Peñaloza MD [address] [place] [address] [place] [address] PCP - General Internal Medicine 09/25/13 Navdeep Waldron MD [facility] [address] [place] [address] Physical Medicine & Rehabilitation - Pain Medicine 07/07/13 Shankar Peñaloza MD [address] [place] [address] [place] [address] Assigned PCP 07/22/16 Capri Gant OD [address] [place] [address] [place] [address] Assigned Surgical Provider 04/29/21 05/31/22 Leeanna Joe MD [address] [place] [address] Assigned Rheumatology Provider 04/22/21 10/18/22 Richardson Alberts PA-C [address] [place] [address] Physician Blower Mechanic Gastroenterology 03/01/22 Shankar Peñaloza MD [address] [place] [address] [place] [address] Assigned Pain Medication Provider 06/17/22 Marielena Sunshine PA-C [address] [facility] [address] [place] [address] Physician Blower Mechanic Urology 10/03/22 Radha Rivas Personal Advocate & Liaison (PAL) 11/26/22 Marielena Sunshine PA-C [address] [facility] [address] [place] [address] Assigned Surgical Provider 12/07/22 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 LICSW [address] [place] [address] Car Sales Representative Car Sales Representative - Clinical 06/23/23 documented as of this encounter
--- OUTSIDE RECORDS SUMMARY | 2023-07-02 14:31 | XMS_ITS | Continuity of Care Document ---
Author Name Unknown Organization [facility] Address [address] [place] [address] Phone Care Team Providers Care Child Guidance Counselor Name Role Phone Barbara Franklin CNP Unavailable Unavailab le Allergies, Adverse Reactions, Alerts Substance Reaction Status Criticality buprenorphine Active No Information KETOROLAC TROMETHAMINE swelling Active No In formation Medications Medication Instructions Dosage Effective Dates (start - stop) Status Comments Zantac 150 mg tablet take 1 tablet by oral route every 12 hours - Active Cipro 250 mg tablet take 1 tablet by oral route every 12 hours 250 MG - Active warfarin 7.5 mg tablet take 1 tablet by oral route every day 7.5 MG - Active hydrochlorothiazide 25 mg tablet take 1 Tablet by oral route every day 25 MG - Active Ambien 10 mg tablet take 1 tablet by oral route every day at bedtime 10 MG - Active Zanaflex 4 mg tablet take 1 - 2 Tablet by oral route every 8 hours as needed not to exceed 3 doses in 24 hours 4 MG - Active clonidine 0.2 mg tablet take 1 tablet by oral route 3 times every day as needed 0.2 MG - Active Prozac 10 mg capsule take 1 Capsule by oral route every day 10 MG - Active Colace 100 mg capsule take 1 capsule by ORAL route 2 times every day at bedtime as needed 100 MG - Active aspirin 81 mg tablet,delayed release take 1 tablet by oral route every day 81 MG - Active Claritin 10 mg tablet take 1 tablet by oral route 2 times every day PRN 10 MG - Active sulfasalazine 500 mg tablet take 1 tablet by oral route 2 times every day after meals 500 MG - Active Lidoderm 5 % (700 mg/patch) Adhesive Patch apply 1 patch by transdermal route every day (May wear up to 12hours.) 1.00 patch - Active pramipexole 0.25 mg tablet take 2 Tablet by ORAL route every day 0.5 MG - Active Vitamin B-12 1,000 mcg tablet take 1 Tablet by Oral route every day 1 Tablet - Active lorazepam 0.5 mg tablet take 1 - 2 Table t by ORAL route every day as needed 0.5 MG - Active Vitamin D3 2,000 unit tablet take 1 Capsule by oral route every day 1 Capsule - Active Procedures Procedure Date Offic/outpt E&m Estab Mod-hi 2 13 Drug Screen: Mx Drug Classes Back Pain & Function Not Assessed Physical Examination Low Back Pain Not C omplete Patient NOT Screened for Alcohol Use Apr Patient NOT Screened for Tobacco Use Apr Counseling Pt With Low Back Pain 2012 Advise Against Bed Rest Current Med Dosages Verified & Documente d Screen for depression not performed Pain Assessment And Follow Up Plan Docum ented QA DONE Inj Anes Facet Jt; Cerv/thor-2nd Level O Inj Anes Facet Jt; Cerv/thor-3rd Level O Inj Anes Facet Jt; Cerv/thor-1st Level O Offic/outpt E&m Estab Mod-hi 2 13 Patient NOT Screened for Alcohol Use Mar Patient NOT Screened for Tobacco Use Mar Current Med Dosages Verified & Documente d Screen for depression not performed Pain Assessment And Follow Up Plan Docum ented QA DONE Inj Anes Facet Jt; Lumb/sac-1st Level Se Inj Anes Facet Jt; Lumb/sac-2nd Level Se Inj Anes Facet Jt; Lumb/sac-3rd Level Se Mod cs by same phys, 5 yrs + Depomedrol 80mg Infus Normal Saline Soln 250 C 13 Offic/outpt E&m Estab Mod-hi 2 13 Patient NOT Screened for Alcohol Use Feb Subsequent Visit For Low Back Pain Current Med Dosages Verified & Documente d Screen for depression not performed Pain Assessment And Follow Up Plan Docum ented Inject SI Joint Arthrography Marcaine 30ml Lo Osm Contr Mat (200-249mg) Depomedrol 80mg Psychiatric Diagnostic Evaluation Offic/outpt E&m Estab Mod-hi 2 13 Back Pain & Function Assessed 3 Physical Examination Low Back Pain Docum ented Patient NOT Screened for Alcohol Use Jan Patient Screened for Tobacco Use with ce ssasion co Counseling Pt With Low Back Pain 2012 Advise Against Bed Rest Did Not Occur Au Current Med Dosages Verified & Documente d Screen for depression not performed Pain Assessment And Follow Up Plan Docum ented Offic Cons New/estab Mod-hi 60 13 Inj Anes Agent; Greater Occipt 08 Advance Directives Directive Yes / No Effective Date File Name No Information Encounters Encounter Description Practice Location Reason(s) For Visit Diagnoses Date Provider Providers Copied on Encounter TAWANNA [facility], [address], [place], [place], [address], [place] tel:[phone] [facility] No Information 4 Franklin Barbara Julio. [address] [place], [address], [place]. Referring Provider: Jany Feliz, [address] [place], [address]. tel:[phone] Offic/outpt E&m Estab Mod-hi 2 [facility], [address], [place], [id number], [place] tel:[phone] [facility] No Information 3 Noemi Kim. [address] [place], [address], [place]. Referring Provider: Jany Mishra MD M, [address] [place], [address]. tel:[phone] [facility], [address] [facility] [address], [place], [address], [place] tel:[phone] [facility] No Information 3 Sapna Avelar. [address], [place], [address], [place]. tel:[phone] Referring Provider: Jany Feliz, [address] [place], [address]. tel:[phone] Offic/outpt E&m Estab Mod-hi 2 [facility], [address], [id number], [place] tel:[phone] [facility] No Information 3 No Information Referring Provider: Jany Mishra MD M, [address] [place], [address]. tel:[phone] [facility], [address], [place], [address], [place] tel:[phone] [facility] No Information 3 Sapna Avelar. [address], [place], [place], [address], [place]. tel:[phone] Referring Provider: Jany Mishra MD M, [address] [place], [address]. tel:[phone] Offic/outpt E&m Estab Mod-hi 2 [facility], [address], [place], [place], [address], [place] tel:[phone] [facility] No Information Sep-1 2 3 No Information Referring Provider: Jany Mishra MD M, [address] [place], [address]. tel:[phone] [facility], [address], [place], [place], [address], [place] tel:[phone] [facility] No Information Sep-0 3 Sapna Avelar. [address], [place], [place], [address], [place]. tel:[phone] Referring Provider: Jany Mishra MD M, [address] [place], [address]. tel:[phone] Psychiatric Diagnostic Evaluation [facility], [facility], [address], [place], [place], [address], [place] tel:[phone] [facility] 7390 No Information Jan-3 0 3 Jesu Shepherd D GLORIA Sena. [address], [place], [place], [address], [place]. tel:[phone] Referring Provider: Jany Mishra MD M, [address] [place], [address]. tel:[phone] Offic/outpt E&m Estab Mod-hi 2 [facility], [address], [place], [place], [address], [place] tel:[phone] [facility] No Information No Information Referring Provider: Jany Mishra MD M, [address] [place], [address]. tel:[phone] Offic Cons New/estab Mod-hi 60 [facility], [address], [place], [place], [address], [place] tel:[phone] [facility] No Information 3 No Information Referring Provider: Jnay Mishra MD M, [address] [place], [address]. tel:[phone] [facility], [address], [place], [address], [place] tel:[phone] [facility] No Information 8 [facility] [address] [facility], [place], [address], [place]. Referring Provider: Wilfred Yu MD, [address] [address] [facility], [address]. tel:[phone] Family History Family Member Type Diagnosis Age At Onset No Information Payers Payer name Insurance type Covered green party ID Authoriza angel(s) Blue Plus BL [id number] Social History Type Description Quantity Date Captured Comments Alcohol Use Details No Caffeine Use Details Unknown Tobacco Use Status No Information Smoking Status Smoker, current stat us unknown Non-Smoking Tobacco Use Details : No Details Available : No Details Available Sex Female Chief Complaint And Reason For Visit No Information Reason For Referral Reason For Referral No Information History Of Present Illness Encounter Date Complaint History Of Prese nt Illness No Information Functional Status Date Functional Assessmen t No Information Instructions Date Instruction Additional Infor mation No Information Assessments Type Assessment Date No Information Patient Care Teams Name Effective Dates (start - stop) Status Members No Information
--- OUTSIDE RECORDS SUMMARY | 2023-07-02 14:31 | XMS_ITS | Continuity of Care Document ---
Author Name Unknown Organization [facility] Address [address] [place] [address] Phone Care Team Providers Care Yoker Name Role Phone Laya BERNAL, Bc Unavailable Unavailable Allergies, Adverse Reactions, Alerts Substance Reaction Status Criticality buprenorphine Active No Information KETOROLAC TROMETHAMINE swelling face and hands(moderat e) Active No Information Medications Medication Instructions Dosage Effective Dates (start - stop) Status Comments sulfasalazine 500 mg Tab denied, patient is overdue for an appointment. - Active clonidine 0.2 mg/24 hr Weekly Transderm Patch apply 1 patch by transdermal route every week 1.00 patch - Active Lunesta 2 mg Tab take 1 tablet (2MG) by oral route every day at bedtime 2 MG - Active Dilaudid 2 mg Tab take 1 tablet (2MG) by oral route every 4 - 6 hours as needed 2 MG - Active Coumadin 7.5 mg Tab take 1 tablet (7.5MG) by oral route every day - Active hydrochlorothiazide 50 mg Tab take 1 tablet (50MG) by oral route every day 50 MG - Active Vitamin D3 2,000 unit Cap take one tab daily - Active Vitamin B-12 1,000 mcg/mL Injection inject 0.1 milliliter (100MCG) by intramuscular route every month - Active aspirin, buffered 81 mg Tab Take 1 daily - Active Colace 50 mg Cap take 1 capsule (50MG) by oral route every day at bedtime as needed - Active Mirapex 1 mg Tab take 1 tablet (1MG) by oral route 3 times every day 1 MG - Active tizanidine 4 mg Cap take 1 capsule (4MG) by oral route 3 times every day 4 MG - Active Procedures Procedure Date Office/Outpatient Visit, Est Prescription Generated Per ERX 13 Routine Venipuncture Complete Cbc WAuto Diff Wbc Assay Of Serum Albumin Assay Of Creatinine Transferase Ast Sgot Alanine Amino Alt Sgpt Office/Outpatient Visit, Est Routine Venipuncture Complete Cbc WAuto Diff Wbc Assay Of Serum Albumin Assay Of Creatinine Transferase Ast Sgot Alanine Amino Alt Sgpt Office/Outpatient Visit, Est Results Test Name Date and Time Measure Units Reference Range Abnormal Flag Status Comments Panel Description: Urinalysis, Routine Final Specific [place] 07:13: 00 1.017 1.005-1.03 0 Final pH 07:13: 00 7.0 5.0-7.5 Final Urine-Color 07:13: 00 Yellow Yellow Final Appearance 07:13: 00 Cloudy Clear A Final WBC Esterase 07:13: 00 Negative Negative Final Protein 07:13: 00 Negative Negative/T race Final Glucose 07:13: 00 Negative Negative Final Ketones 07:13: 00 Negative Negative Final Occult Blood 07:13: 00 Negative Negative Final Bilirubin 07:13: 00 Negative Negative Final Urobilinogen,Semi -Qn 07:13: 00 0.2 mg/dL 0.0-1.9 Final Nitrite, Urine 07:13: 00 Negative Negative Final Microscopic Examination 07:13: 00 Comment Final Microscopic fo llows if indicated. Panel Description: ANCA Panel Final Antimyeloperoxida se (MPO) Abs 09:09: 00 <9.0 U/mL 0.0-9.0 Final Antiproteinase 3 (ND-3) Abs 09:09: 00 <3.5 U/mL 0.0-3.5 Final Cytoplasmic (C-ANCA) 09:09: 00 <1:20 titer Neg:<1:20 Final Perinuclear (P-ANCA) 09:09: 00 <1:20 titer Neg:<1:20 Final The presence o f positive fluorescence exhibiting P-ANCA or C-ANCApatterns alone is not specific for the diagnosis of Cindy'sGranulomatos is (WG) or microscopic polyangiitis. Decisions abouttreatment should not be based solely on ANCA IFA results. TheInternational ANCA Group Consensus recommends follow up testing ofpositive sera with both ND-3 and MPO-ANCA enzyme immunoassays. Asmany as 5% serum samples are positive only by EIA.Ref. AM J Clin Pathol 1999;111:507-513. Atypical pANCA 09:09: 00 <1:20 titer Neg:<1:20 Final The atypical p ANCA pattern has been observed in a significantpercentage of patients with ulcerative colitis, primary sclerosingcholangitis and autoimmune hepatitis. Panel Description: Rheumatoid Arthritis Profile Final RA Latex Turbid. 09:09: 00 11.7 IU/mL 0.0-13.9 Final CCP Antibodies IgG/IgA 09:09: 00 6 units 0-19 Final Negative <20 W eak positive 20 - 39 Moderate positive 40 - 59 Strong positive >59 Panel Description: NORTH+MADAY+C3+C4+ADNA+SjoSSA+S.. . Final Complement C3, Serum 09:09: 00 124 mg/dL 90-180 Final Complement C4, Serum 09:09: 00 32 mg/dL 9-36 Final Antinuclear Antibodies, IFA 09:09: 00 See patterns Final Negative <1:80 Borderline 1:80 Positive >1:80 Anti-DNA (DS) Ab Qn 09:09: 00 2 IU/mL 0-9 Final Negative <5 Eq uivocal 5 - 9 Positive >9 EDGER OPERATOR Antibodies 09:09: 00 0.2 AI 0.0-0.9 Final Peck Antibodies 09:09: 00 <0.2 AI 0.0-0.9 Final Sjogren's Anti-SS-A 09:09: 00 <0.2 AI 0.0-0.9 Final Sjogren's Anti-SS-B 09:09: 00 <0.2 AI 0.0-0.9 Final Panel Description: KATHI Staining Patterns Final Homogeneous Pattern 09:09: 00 1:640 H Final Note: 09:09: 00 Comment Final A positive NORTH result may occur in healthy individuals veto associated with a variety of diseases. See interpre-tation below: .Pattern Antigen Detected Suggested Disease Association - --------Homogeneous DNA(ds,ss,), High titers - SLE(Smooth) Histone --------Speckled Sm, EDGER OPERATOR, SCL-70, SLE,MCTD,Scleroderma, Sjogrens SS-A/SS-B --------Nucleolar SCL-70, PM-1/SCL High titers Scleroderma Poly- myositis/Scleroderma Overlap --------Centromere Centromere PSS w/Crest syndrome variable --------- Panel Description: CBC Final WBC 10:44: 00 8.2 K/uL 3.5-10.8 Final Lymphocyte% 10:44: 00 22.7 % 15.1-43.0 Final Mid% 10:44: 00 6.5 % 1.0-18.0 Final Gran% 10:44: 00 70.8 % 45.0-76.0 Final Lymphocyte # 10:44: 00 1.9 K/uL 0.9-5.2 Final Mid # 10:44: 00 0.5 K/uL 0.1-2.0 Final Gran # 10:44: 00 5.8 K/uL 1.4-9.1 Final RBC 10:44: 00 5.04 M/uL 3.80-5.20 Final Hemoglobin 10:44: 00 14.6 g/dL 11.5-16.0 Final Hematocrit 10:44: 00 45.5 % 36.0-49.0 Final MCV 10:44: 00 90 fL 81-100 Final MCH 10:44: 00 29 pg 27-35 Final MCHC 10:44: 00 32.1 g/dL 31.0-37.5 Final MPV 10:44: 00 10.2 fL 7.0-10.4 Final Platelet Count 10:44: 00 241 K/uL 130-400 Final Panel Description: ESR Final ESR 10:45: 00 6 mm/hr 0-25 Final Panel Description: DMARD Final AST 10:45: 00 18 U/L 5-34 Final ALT 10:45: 00 18 IU/L 5-35 Final Creatinine 10:45: 00 0.9 mg/dL 0.5-1.3 Final ALB 10:45: 00 4.2 g/dL 3.5-5.3 Final Panel Description: CRP Final CRP 10:45: 00 0.15 MG/DL 0.00-0.60 Final Advance Directives Directive Yes / No Effective Date File Name No Information Encounters Encounter Description Practice Location Reason(s) For Visit Diagnoses Date Provider Providers Copied on Encounter [facility] , [address], [place], [address], [place] tel:[phone] No Information 3 Laya Yancey. [facility] [address], [place], [address], [place]. tel:[phone] [facility] , [address], [place], [address], [place] tel:[phone] [facility] , No Information 3 Laya Yancey. [facility] [address], [place], [address], [place]. tel:[phone] Office/Outpa tient Visit, Est [facility] , [address], [place], [address], [place] tel:[phone] [facility] , Inflammatory Polyarthropa thy (chief complaint) Unspecified inflammatory polyarthropa thyTherapeut ic Drug MonitoringOt her specified counselingAn tiphospholip W Hemorr DisMyalgia and myositis, unspecified 3 Laya Yancey. [facility] [address], [place], [address], [place]. tel:[phone] Referring Provider: Bc Shea, [facility] [address], [place], [address]. tel:[phone] Office/Outpa tient Visit, Est [facility] , [address], [place], [address], [place] tel:[phone] [facility] , Inflammatory Polyarthropa thy (chief complaint) Unspecified inflammatory polyarthropa thyTherapeut ic Drug MonitoringOt her specified counselingAn tiphospholip W Hemorr Dis 0 2 Laya Yancey. [facility] [address], [place], [address], [place]. tel:[phone] Office/Outpa tient Visit, Est [facility] , [address], [place], [address], [place] tel:[phone] [facility] , Joint Pain (chief complaint) Unspecified inflammatory polyarthropa thyTherapeut ic Drug MonitoringOt her specified counseling 2 Laya Yancey. [facility] [address], [place], [address], [place]. tel:[phone] Family History Family Member Type Diagnosis Age At Onset No Information Payers Payer name Insurance type Covered alliance party ID Ronda ortiz(s) [facility] [id number] Medicare [place] [id number] Social History Type Description Quantity Date Captured Comments Sex Female Smoking Status No Information Chief Complaint And Reason For Visit No Information Reason For Referral Reason For Referral No Information Plan Of Treatment Date Type Action Status Goal Tobacco cessation counseling completed Goal Tobacco cessation counseling completed History Of Present Illness Encounter Date Complaint History Of Prese nt Illness No Information Functional Status Date Functional Assessmen t No Information Instructions Date Instruction Additional Infor mation No Information Assessments Type Assessment Date No Information Patient Care Teams Name Effective Dates (start - stop) Status Members No Information
--- OUTSIDE RECORDS SUMMARY | 2023-07-02 14:31 | XMS_ITS | Continuity of Care Document ---
Author Name Unknown Organization [facility] Address [address] [place] [address] Phone Care Team Providers Care Interlocking And Signal Mechanic Name Role Phone Barbara Franklin CNP Unavailable [...] Providers Copied on Encounter TAWANNA LeblancC, [address], [place], [place], [address], [place] tel:[phone] [facility] No Information 4 Franklni Barbara Julio. [address] [place], [address], [place]. Referring Provider: Jany Feliz, [address] [place], [address]. tel:[phone] Offic/outpt E&m Estab Mod-hi 2 [facility], [address], [place], [address], [place] tel:[phone] [facility] No Information 3 Noemi Kim. [address] [place], [address], [place]. Referring Provider: Jany Mishra MD M, [address] [place], [address]. tel:[phone] [facility], [address] [facility] [address], [place], [address], [place] tel:[phone] [facility] No Information 3 Sapna Avelar. [address], [place], [address], [place]. tel:[phone] Referring Provider: Jany Feliz, [address] [place], [address]. tel:[phone] Offic/outpt E&m Estab Mod-hi 2 [facility], [address], [address], [place] tel:[phone] [facility] No Information 3 No Information Referring Provider: Jany Mishra MD M, [address] [place], [address]. tel:[phone] [facility], [address], [place], [address], [place] tel:[phone] [facility] No Information 3 Sapna Avelar. [address], [place], [place], [address], [place]. tel:[phone] Referring Provider: Jany Mishra MD M, [address] [place], [address]. tel:[phone] Offic/outpt E&m Estab Mod-hi 2 [facility], [facility], [address], [place], [place], [address], [place] tel:[phone] [facility] No Information Sep-1 2 3 No Information Referring Provider: Jany Mishra MD M, [address] [place], [address]. tel:[phone] [facility], [facility], [address], [place], [place], [address], [place] tel:[phone] [facility] No Information Sep-0 3 Sapna Avelar. [address], [place], [place], [address], [place]. tel:[phone] Referring Provider: Jany Mishra MD M, [address] [place], [address]. tel:[phone] Psychiatric Diagnostic Evaluation [facility], [facility], [address], [place], [place], [address], [place] tel:[phone] [facility] 7390 No Information Jan-3 0 3 Jesu Shepherd D GLORIA Sena. [address], [place], [place], [address], [place]. tel:[phone] Referring Provider: Jany Mishra MD M, [address] [place], [address]. tel:[phone] Offic/outpt E&m Estab Mod-hi 2 [facility], [facility], [address], [place], [place], [address], [place] tel:[phone] [facility] No Information No Information Referring Provider: Jany Mishra MD M, [address] [place], [address]. tel:[phone] Offic Cons New/estab Mod-hi 60 [facility], [facility], [address], [place], [place], [address], [place] tel:[phone] [facility] No Information 3 No Information Referring Provider: Jany Mishra MD M, [address] [place], [address]. tel:[phone] [facility], [address], [place], [address], [place] tel:[phone] [facility] No Information 8 [facility] [address], [place], [address], [place]. Referring Provider: Wilfred Yu MD, [address] [facility] [place], [address]. tel:[phone] Family History Family Member Type Diagnosis Age At Onset No Information Payers Payer name Insurance type Covered republican ID Authoriza angel(s) Blue Plus BL [id number] Social History Type Description Quantity Date Captured [...]
--- OUTSIDE RECORDS SUMMARY | 2023-07-02 14:31 | XMS_ITS | Continuity of Care Document ---
Author Name Unknown Organization [facility] Address [address] [place] [address] Phone Care Team Providers Care Port Engineer Name Role Phone Laya BERNAL, Bc Unavailable [...] Comments Panel Description: Urinalysis, Routine Final Specific [place] 07:13: 00 1.017 1.005-1.03 0 Final pH [...] 00 <9.0 U/mL 0.0-9.0 Final Antiproteinase 3 (AK-3) Abs 09:09: 00 <3.5 U/mL 0.0-3.5 Final [...] follow up testing ofpositive sera with both AK-3 and MPO-ANCA enzyme immunoassays. Asmany as 5% [...] Eq uivocal 5 - 9 Positive >9 HAM STRIPPER Antibodies 09:09: 00 0.2 AI 0.0-0.9 Final [...] High titers - SLE(Smooth) Histone --------Speckled Sm, HAM STRIPPER, SCL-70, SLE,MCTD,Scleroderma, Sjogrens SS-A/SS-B --------Nucleolar SCL-70, PM-1/SCL [...] Consultants , [address], [place], [address], [place] tel:[phone] No Information 3 Laya Yancey. [facility] [address], [place], [address], [place]. tel:[phone] [facility] , [address], [place], [address], [place] tel:[phone] [facility] , No Information 3 Laya Yancey. [facility] [address], [place], [address], [place]. tel:[phone] Office/Outpa tient Visit, Est [facility] , [address], [place], [address], [place] tel:[phone] [facility] , Inflammatory Polyarthropa thy (chief complaint) Unspecified inflammatory polyarthropa thyTherapeut ic Drug MonitoringOt her specified counselingAn tiphospholip W Hemorr DisMyalgia and myositis, unspecified 3 Laya Yancey. [facility] [address], [place], [address], [place]. tel:[phone] Referring Provider: Bc Shea, [facility] [address], [place], [address]. tel:[phone] Office/Outpa tient Visit, Est [facility] , [address], [place], [address], [place] tel:[phone] [facility] , Inflammatory Polyarthropa thy (chief complaint) Unspecified inflammatory polyarthropa thyTherapeut ic Drug MonitoringOt her specified counselingAn tiphospholip W Hemorr Dis 0 2 Laya Yancey. [facility] [address], [place], [address], [place]. tel:[phone] Office/Outpa tient Visit, Est [facility] , [address], [place], [address], [place] tel:[phone] [facility] , Joint Pain (chief complaint) Unspecified inflammatory polyarthropa thyTherapeut ic Drug MonitoringOt her specified counseling 2 Laya Yancey. [facility] [address], [place], [address], [place]. tel:[phone] Family History Family Member Type Diagnosis Age At Onset No Information Payers Payer name Insurance type Covered republican ID Ronda ortiz(s) [facility] [id number] Medicare [place] [id number] Social History Type Description Quantity Date Captured [...]
--- OUTSIDE RECORDS SUMMARY | 2023-07-02 14:31 | XMS_ITS | Clinical Summary ---
Author Name Unknown Organization [facility] Address [place], [place] [address] Care Team Providers Care Weapons And Tactics Instructor Name Role Phone Jany Mishra MD Primary Care Provider [phone] Allergies Active Allergy Reactions Criticality Noted Date Comments Ketorolac 01/25/2009 Face and hands swelling Medications Medication Sig Dispensed Refills Start Date End Date Status HYDROCHLOROTHIAZI DE 25 MG TAB take 1 tablet (25 mg) by oral route once daily 0 01/25/2009 Active PROPOXYPHENE N-ACETAMINOPHEN 100 MG-650 MG TAB take 1 tablet by oral route every 4-6 hours as needed for pain 0 01/25/2009 Active ARNAV-D 24 HOUR 180 MG-240 MG TAB takes 1 daily 0 01/25/2009 Acti ve LOVENOX 30 MG/0.3 ML SUB-Q SYRINGE inject 1 mg/kg by subcutaneous route every 12 hours 0 04/21/2009 Active AMBIEN 10 MG TAB take 1 tablet (10 mg) by oral route once daily at bedtime as needed 0 Active COMPAZINE ORAL Take 1 tablet as needed for nausea from pain medication 0 Active OXYCODONE-ACETAMI NOPHEN 5 MG-325 MG TAB Take 1 to 2 tablets by mouth every 4 hours as needed for pain. 60 0 04/27/2009 Active ZOLPIDEM 10 MG TAB 1 tablet at bedtime as needed 15 0 04/27/2009 Active VITAMIN B-12 1,000 MCG/ML INJECTION inject 0.1 milliliter (100 mcg) by intramuscular route once a month 0 Active ONDANSETRON HCL 8 MG TAB take 1 tablet (8 mg) by oral route every 8 hours for 2 days 16 2 04/27/2009 Active HYDROmorphone (DILAUDID) 2 mg tablet TAKE 1-2 TABLETS BY MOUTH EVERY 4-6 HOURS NEEDED 60 tablet 0 05/19/2012 Active HYDROmorphone (DILAUDID) 2 mg tablet TAKE 1-2 TABLETS BY MOUTH EVERY 4-6 HOURS NEEDED 120 tablet 0 06/04/2012 Active HYDROmorphone (DILAUDID) 2 mg tablet Take 1-2 tablets by mouth every 4-6 hours as needed 120 tablet 0 09/14/2012 Active HYDROmorphone (DILAUDID) 2 mg tablet Take 1-2 tablets by mouth every 4-6 hours as needed 120 tablet 0 10/05/2012 Active HYDROmorphone (DILAUDID) 2 mg tablet Take 1-2 tablets by mouth every 4-6 hours as needed. 120 tablet 0 10/21/2012 Active HYDROmorphone (DILAUDID) 2 mg tablet Take 1-2 tablets by mouth every 4-6 hours if needed. 120 tablet 0 11/06/2012 Active HYDROmorphone (DILAUDID) 2 mg tablet Take 1-2 tablets by mouth every 4-6 hours as needed 50 tablet 0 11/25/2012 Active HYDROmorphone (DILAUDID) 2 mg tablet Take 1-2 tablets by mouth every 4 to 6 hours as needed for pain. 120 tablet 0 12/24/2012 Active oxyCODONE-acetami nophen, 5-325 mg, (PERCOCET) per tablet Take 1 tablet by mouth every 4 hours if needed. Max acetaminophen dose: 4000mg in 24 hrs. 0 Active cloNIDine (CATAPRES) 0.2 mg tablet Take 0.2 mg by mouth 2 times daily. 0 Active fentaNYL 25 mcg/hr (DURAGESIC) 25 mcg/hr patch Apply 1 patch to upper torso as directed every 72 hours 10 Patch 0 07/19/2013 Active oxyCODONE-acetami nophen, 5-325 mg, (PERCOCET) per tablet Take 1 tablet by mouth every 6-8 hours as needed for pain 60 tablet 0 07/19/2013 Active Active Problems Problem Noted Date Diagnosed Date Knee pain 01/25/2009 Back pain 01/25/2009 Antiphospholipid syndrome 01/25/2009 Encounters Date Type Department Care Team Description 04/14/2023 Lab Requisition [facility] [phone] Jose Moore MD from Last 3 Months Family History Medical History Relation Name Comments Alcohol/Drug Father Arthritis Mother osteoarthritis Cancer Mother Diabetes Mother Thyroid Disease Other 1 great grandm other, great aunt Hypertension Other 2 grandmother Cancer-breast No Family History Relation Name Status Comments Father Alive Mother Alive Other 1 Other 2 Sister Alive Social History Tobacco Use Types Packs/Day Years Used Date Smoking Tobacco: Every Day Cigarettes 0.5 25 Comments:6-10 cigarettes per day Alcohol Use Standard Drinks/Week Comments No 0 (1 standard drink = 0.6 oz pur e alcohol) Sex and Gender Information Value Date Recorded Sex Assigned at Not on file Gender Identity Not on file Sexual Orientation Not on file Obstetrics History Last Filed Vital Signs Vital Sign Reading Time Taken Comments Blood Pressure 122/70 01/26/2013 10:17 AM CDT Pulse 80 01/26/2013 10:17 AM CDT Temperature 36 ??C (96.8 ??F) 04/27/2009 4:42 PM [facility] Respiratory Rate 16 04/27/2009 6:15 PM [facility] Oxygen Saturation 95% 04/27/2009 6:15 PM [facility] Inhaled Oxygen Concentration - - Weight 91.2 kg (201 lb) 01/26/2013 10:17 AM CDT Height 175.3 cm (5' 9) 01/26/2013 10:17 AM CDT Body Mass Index 29.68 01/26/2013 10:17 AM CDT Plan of Treatment Health Maintenance Due Date Last Done Comments Tdap 1977 Depression screening for age 12+ 1978 HIV for age 15-65 1981 BMI (ht and wt on same day) for age 18+ 1984 Hepatitis C screening for ag e 18-79 1984 Tetanus booster 1986 Pap test for age 21-65 1987 Colonoscopy through age 75 2011 Lipids for age 45-75 2011 Mammogram for age 45-75 07/11/2012 07/11/19 12, 05/30/2008 Zoster (shingles) series for age 50+ (1 of 2) 2016 COVID-19 vaccine series (2022- season) 2023 04/04/2021, 09/20/2020, 08/30/2020 Influenza for age 50-64 02/07/2023 Pneumococcal series for age 6-64 Aged Out No longer eligible b ased on patient's age to complete this topic Procedures Procedure Name Priority Date/Time Associated Diagnosis Comments FACTOR 10 CHROMOGENIC Routine 04/14/2023 3:01 PM [facility] Antiphospholipid syndrome (HC) from Last 3 Months Results * (ABNORMAL) FACTOR 10 CHROMOGENIC (04/14/2023 3:01 PM [facility]) FACTOR 10 CHROMOGENIC 33(L) 60 - 120 % 04/14/2023 9:09 PM [facility] Blood BLOOD SPECIMEN / Unknown 04/14/2023 3:01 PM [facility] 04/14/2023 8:44 PM [facility] Narrative [facility] - 04/14/2023 9:09 PM [facility] Therapeutic Range 20-40% Jose Moore MD SEND OUTS [facility] [address] [place] [address], from Last 3 Months Advance Directives Latest Code Status on File Code Status Date Activated Date Inactivated Comments Full Code 04/27/2009 12:13 PM 04/27/2009 9:52 PM Care Teams Weapons And Tactics Instructor Relationship Specialty Start Date End Date Jany Mishra MD PCP - General Internal Medicine 12/28/12
== END 2023-07-02 14:32 | disposition home or self-care (01) ==
LOC: ED 14:22
PROVIDERS: Emergency Provider Family Medicine
DX: K20.90 Esophagitis, unspecified without bleeding (principal); K22.70 Barrett's esophagus without dysplasia
CPT/HCPCS: 99282; 99283; 99284

== ENCOUNTER 2023-07-07 10:24 | Outpatient (CLI) | payer OTHER, MEDICARE, SELFPAY ==
--- OUTSIDE RECORDS SUMMARY | 2023-07-07 10:28 | XMS_ITS | Clinical Summary ---
Author Name Unknown Organization [facility] Address [address] [place] [address] Care Team Providers Care Senior Research Analyst Name Role Phone Navdeep Waldron MD Unavailable [phone] Shankar Peñaloza MD Primary Care Provider Shankar Peñaloza MD Unavailable [phone] Richardson Alberts PA-C Unavailable [phone] Shankar Peñaloza MD Unavailable [phone] Marielena Sunshine PA-C Unavailable Radha Rivas Unavailable Unavailable Marielena Sunshine PA-C Unavailable [phone] 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 [facility] Unavailable Allergies Active Allergy Reactions Criticality Noted [...] Admin Instructions Monitors Chromogenic Factor X via [facility] Alternates between 10 mg and 7.5 [...] 0.06 % nasal sprayIndications: Acute recurrent pansinusitis [place] 2 sprays into both nostrils 4 times [...] naloxone (NARCAN) 4 MG/0.1ML nasal sprayIndications: Anxiety [place] 1 spray (4 mg) into one nostril alternating nostrils as needed for opioid reversal every 2-3 minutes until assistance arrives 0.2 mL 1 4 Active LORazepam (ATIVAN) 1 MG tabletIndications :Anxiety Take 0.5 tablets (0.5 mg) by mouth every 8 hours as needed for anxiety, vomiting or nausea 12 tablet 0 4 Active naloxone (NARCAN) 4 MG/0.1ML nasal sprayIndications: Fibromyalgia [place] 1 spray (4 mg) into one nostril [...] 2015 Pain Clinic evaluation in the past: [facility] website verification: Done on 04/30/19 Depression [...] Department Care Team Description 06/25/2023 10:00 AM BUTTON INSPECTOR Office Visit [address] [address] Liz Mercado, PADeirdre 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); Globus sensation; Severe episode of recurrent major depressive disorder, without psychotic features (H); Nausea and vomiting in adult; Epigastric pain; Anxiety; Serotonin syndrome; Rheumatoid arthritis involving multiple sites, unspecified whether rheumatoid factor present (H); Anti-phospholipid antibody syndrome (H24) 06/25/2023 Travel 06/23/2023 10:00 AM BUTTON INSPECTOR Virtual Visit [facility] [address] [address] Koko Tracey MD Siny[place]aya, Speciose, [facility] Severe episode of recurrent major depressive disorder, without psychotic features (H) 06/23/2023 FCC Extended Documentation [facility] [address] [address] 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 COMMISSARY WORKER 06/20/2023 MyC Medical Advice [address] [address] Koko Tracey MD MyChart Communication (Appointment/) 06/20/2023 [facility] [address] [place] [address] Koko Tracey MD Medication Refill 06/17/2023 MyC Refill [facility] [address] [facility] [address] [place] [address] Shankar Peñaloza MD Refill Request 06/11/2023 Marco Antonio Medical Advice [facility] [address] [place] [address] Suzi Yao MA 06/10/2023 Refill [facility] [address] [place] [address] Koko Tracey MD Medication Refill 06/05/2023 4:33 PM BUTTON INSPECTOR - 06/05/2023 6:04 PM BUTTON INSPECTOR Emergency [facility] [address] [place] [address] Ulises Orozco MD Globus sensation; Nausea; History of Jama's esophagus; Anxiety Discharge Disposition: Home or Self Care 06/03/2023 [facility] [place] [facility] [address] [place] [address] [address] [place] [address] Radha Rivas Outreach 05/30/2023 Medical Correspondence [facility] Info [facility] [address] [place] [address] Outside, Provider 05/27/2023 1:45 PM BUTTON INSPECTOR Lab [facility] [address] [place] [address] Antiphospholipid syndrome (H24) (Primary Dx); Benign essential hypertension 05/27/2023 1:30 PM BUTTON INSPECTOR Allied Health/Nurse Visit [facility] [address] [place] [address] Allied Health Visit (Bp check ) 05/27/2023 Travel 05/20/[address] [place] [address] Shankar Peñaloza MD Refill Request 05/14/2023 [facility] [address] [place] [address] Ann Vanessa, RN Severe episode of recurrent major depressive disorder, without psychotic features (H) (Primary Dx) 05/14/2023 MyC Refill [address] [place] [address] Shankar Peñaloza MD Refill Request 05/12/2023 8:15 AM BUTTON INSPECTOR E-Visit [facility] [address] [place] [address] Ania Gomez, JANA URANIUM PROCESSING SUPERVISOR Cough (Entered automatically based on christopher... 05/12/2023 [facility] [place] [facility] [address] [place] [address] Nory Howard, RN 05/12/2023 Refill [facility] [address] [place] [address] Koko Tracey MD Medication Refill 05/08/2023 Telephone [facility] [address] [place] [address] Koko Tracey MD Medication Refill 04/16/2023 [facility] [place] [address] [place] [address] Shankar Peñaloza MD 04/13/2023 MyC Refill [address] [place] [address] Shankar Peñaloza MD Refill Request 04/11/2023 1:25 PM CDT - 04/11/2023 3:19 PM CDT Emergency [facility] [address] [place] [address] Marco Charles MD Nonintractable headache, unspecified chronicity pattern, unspecified headache type; Subtherapeutic international normalized ratio (INR) Discharge Disposition: Home or Self Care 04/11/2023 Travel 04/09/2023 11:30 AM CDT Office Visit [facility] [address] [place] [address] Koko Tracey MD Severe episode of recurrent major depressive disorder, without psychotic features (H) (Primary Dx); Serotonin syndrome; Bacterial sinusitis; Benign essential hypertension 04/09/2023 Refill [facility] [address] [place] [address] Koko Tracey MD Medication Refill 04/09/2023 Travel [...] Comments Blood Pressure 128/84 06/25/2023 9:53 AM BUTTON INSPECTOR Pulse 79 06/25/2023 9:53 AM BUTTON INSPECTOR Temperature 36.8 ??C (98.2 ??F) 06/25/2023 9:53 AM CS T Respiratory Rate 15 06/25/2023 9:53 AM BUTTON INSPECTOR Oxygen Saturation 96% 06/25/2023 9:53 AM BUTTON INSPECTOR Inhaled Oxygen Concentration - - Weight 85.8 kg (189 lb 3.2 oz) 06/25/2023 9:53 A M BUTTON INSPECTOR Height 168.9 cm (5' 6.5) 06/25/2023 9:53 AM BUTTON INSPECTOR Body Mass Index 30.08 06/25/2023 9:53 AM BUTTON INSPECTOR Plan of Treatment Upcoming Encounters Date Type Department Care Team (Late st Contact Info) Description 07/16/2023 3:30 PM BUTTON INSPECTOR Office Visit [facility] [place] [address] [place] [address] Shankar Peñaloza MD [address] [facility] [place] [address] 2023 3:00 PM BUTTON INSPECTOR Virtual Visit [facility] [place] [address] [place] [address] 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, [facility] [address] [place] [address] 08/13/2023 2:30 PM BUTTON INSPECTOR Office Visit [facility] [address] [place] [address] [place] [address] [place] [address] Health Maintenance Due Date Last [...] PLATELETS & DIFFERENTIAL STAT 06/05/2023 12:34 PM BUTTON INSPECTOR EXTRA RED TOP TUBE STAT 06/05/2023 12 :34 PM BUTTON INSPECTOR EXTRA BLUE TOP TUBE STAT 06/05/2023 1 2:34 PM BUTTON INSPECTOR CBC WITH PLATELETS AND DIFFERENTIAL STAT 06/05/2023 12:34 PM BUTTON INSPECTOR EXTRA TUBE STAT 06/05/2023 12:34 PM BUTTON INSPECTOR TROPONIN T, HIGH SENSITIVITY STAT 06/05/2023 12:34 PM BUTTON INSPECTOR BASIC METABOLIC PANEL STAT 06/05/2023 12:34 PM BUTTON INSPECTOR EKG 12-LEAD, TRACING ONLY STAT 06/05/2023 12:01 PM BUTTON INSPECTOR FACTOR 10 CHROMOGENIC Routine 05/27/2023 1:46 PM BUTTON INSPECTOR Antiphospholipid syndrome (H24) BASIC METABOLIC PANEL Routine 05/27/2023 1:32 PM BUTTON INSPECTOR Benign essential hypertension CT HEAD W/O CONTRAST [...] Extra Red Top Tube (06/05/2023 12:34 PM BUTTON INSPECTOR) Only the most recent of2 resultswithin the time period is included. Hold Specimen [facility] 06/05/2023 1:47 PM BUTTON INSPECTOR [facility] LABORATORY Blood STRUCTURE OF LEFT UPPER LIMB / Unknown Venipuncture / Unknown 06/05/2023 12:34 PM BUTTON INSPECTOR 06/05/2023 12:46 PM BUTTON INSPECTOR Ulises Orozco MD LAB - BLOOD ORDERABL ES [facility] [address] [facility] Lab (1st floor, no room number) [place] [address], [facility] [phone] * Extra Blue Top Tube (06/05/2023 12:34 PM BUTTON INSPECTOR) Hold Specimen [facility] 06/05/2023 1:47 PM BUTTON INSPECTOR [facility] LAB[facility] Blood STRUCTURE OF LEFT UPPER LIMB / Unknown Venipuncture / Unknown 06/05/2023 12:34 PM BUTTON INSPECTOR 06/05/2023 12:46 PM BUTTON INSPECTOR Ulises Orozco MD LAB - BLOOD ORDERABL ES RH LABORATORY [facility] Lab [address] Lab (1st floor, no room number) [place] [address], [facility] [phone] * CBC with platelets and differential (06/05/2023 12:34 PM BUTTON INSPECTOR) Only the most recent of2 resultswithin the time period is included. WBC Count 7.9 4.0 - 11.0 10e3/uL 06/05/2023 12:50 PM BUTTON INSPECTOR [facility] RBC Count 4.56 3.80 - 5.20 10e6/uL 06/05/2023 12:50 PM BUTTON INSPECTOR [facility] Hemoglobin 13.2 11.7 - 15.7 g/dL 06/05/2023 12:50 PM BUTTON INSPECTOR [facility] Hematocrit 40.2 35.0 - 47.0 % 06/05/2023 12:50 PM BUTTON INSPECTOR [facility] MCV 88 78 - 100 fL 06/05/2023 12:50 PM BUTTON INSPECTOR [facility] MCH 28.9 26.5 - 33.0 pg 06/05/2023 12:50 PM BUTTON INSPECTOR [facility] LAB[facility] MCHC 32.8 31.5 - 36.5 g/dL 06/05/2023 12:50 PM BUTTON INSPECTOR [facility] RDW 12.5 10.0 - 15.0 % 06/05/2023 12:50 PM BUTTON INSPECTOR [facility] Platelet Count 217 150 - 450 10e3/uL 06/05/2023 12:50 PM BUTTON INSPECTOR [facility] % Neutrophils 86 % 06/05/2023 12:50 PM BUTTON INSPECTOR [facility] % Lymphocytes 10 % 06/05/2023 12:50 PM BUTTON INSPECTOR [facility] % Monocytes 3 % 06/05/2023 12:50 PM BUTTON INSPECTOR [facility] % Eosinophils 1 % 06/05/2023 12:50 PM BUTTON INSPECTOR [facility] % Basophils 0 % 06/05/2023 12:50 PM BUTTON INSPECTOR [facility] % Immature Granulocytes 0 % 06/05/2023 12:50 PM BUTTON INSPECTOR [facility] NRBCs per 100 WBC 0 <1 /100 023 12:50 PM BUTTON INSPECTOR [facility] Absolute Neutrophils 6.8 1.6 - 8.3 10e3/uL 06/05/2023 12:50 PM BUTTON INSPECTOR [facility] Absolute Lymphocytes 0.8 0.8 - 5.3 10e3/uL 06/05/2023 12:50 PM BUTTON INSPECTOR [facility] Absolute Monocytes 0.3 0.0 - 1.3 10e3/uL 06/05/2023 12:50 PM BUTTON INSPECTOR [facility] Absolute Eosinophils 0.1 0.0 - 0.7 10e3/uL 06/05/2023 12:50 PM BUTTON INSPECTOR [facility] Absolute Basophils 0.0 0.0 - 0.2 10e3/uL 06/05/2023 12:50 PM BUTTON INSPECTOR [facility] Absolute Immature Granulocytes 0.0 <=0.4 10e3/uL 06/05/2023 12:50 PM BUTTON INSPECTOR [facility] Absolute NRBCs 0.0 10e3/uL 06/05/2023 12:50 PM BUTTON INSPECTOR [facility] Blood STRUCTURE OF LEFT UPPER LIMB / Unknown Venipuncture / Unknown 06/05/2023 12:34 PM BUTTON INSPECTOR 06/05/2023 12:46 PM BUTTON INSPECTOR Ulises Orozco MD LAB - BLOOD ORDERABL ES LABORATORY [facility] Lab [address] [facility] Lab (1st floor, no room number) [place] [address], [facility] [phone] * Troponin T, High Sensitivity (now) (06/05/2023 12:34 PM BUTTON INSPECTOR) Troponin T, High Sensitivity 9 <=14 ng/L 06/05/2023 1:21 PM BUTTON INSPECTOR [facility] Comment: Either a High Sensitivity [...] Unknown Venipuncture / Unknown 06/05/2023 12:34 PM BUTTON INSPECTOR 06/05/2023 12:46 PM BUTTON INSPECTOR Ulises Orozco MD LAB - BLOOD ORDERABL ES LABORATORY [facility] [address] [facility] Lab (1st floor, no room number) [place] [address], [facility] [phone] * (ABNORMAL) Basic metabolic panel (BMP) (06/05/2023 12:34 PM BUTTON INSPECTOR) Only the most recent of3 resultswithin the time period is included. Sodium 139 135 - 145 mmol/L 06/05/2023 1:21 PM [facility] Comment:Reference intervals for this test were updated on 03/04/2023 to more accurately reflect our healthy population. There may be differences in the flagging of prior results with similar values performed with this method. Interpretation of those prior results can be made in the context of the updated reference intervals. Potassium 3.9 3.4 - 5.3 mmol/L 06/05/2023 1:21 PM [facility] Chloride 102 98 - 107 mmol/L 06/05/2023 1:21 PM [facility] Carbon Dioxide (CO2) 24 22 - 29 mmol/L 06/05/2023 1:21 PM [facility] Anion Gap 13 7 - 15 mmol/L 06/05/2023 1:21 PM [facility] Urea Nitrogen 18.4 6.0 - 20.0 mg/dL 06/05/2023 1:21 PM [facility] Creatinine 0.97(H) 0.51 - 0.95 mg/dL 06/05/2023 1:21 PM [facility] GFR Estimate 68 >60 mL/min/1. 73m2 06/05/2023 1:21 PM [facility] Calcium 9.4 8.6 - 10.0 mg/dL 06/05/2023 1:21 PM [facility] Glucose 117(H) 70 - 99 mg/dL 06/05/2023 1:21 PM BUTTON INSPECTOR [facility] LAB[facility] Blood STRUCTURE OF LEFT UPPER LIMB / Unknown Venipuncture / Unknown 06/05/2023 12:34 PM BUTTON INSPECTOR 06/05/2023 12:46 PM BUTTON INSPECTOR Ulises Orozco MD LAB - BLOOD ORDERABL ES [facility] LABORATORY [facility] [address] Lab (1st floor, no room number) [place] [address], [facility] [phone] * EKG 12-lead, tracing only (06/05/2023 12:01 PM BUTTON INSPECTOR) Systolic Blood Pressure mmHg RADIOLOGY RESULTS Diastolic Blood Pressure mmHg RADIOLOGY RESULTS Ventricular Rate 69 BPM RAD IOLOGY RESULTS Atrial Rate 69 BPM RADIOLOG Y RESULTS ND Interval 158 ms RADIOLOG Y RESULTS QRS Duration 86 ms RADIOLO GY RESULTS QT 428 ms RADIOLOGY RESULTS QTc 458 ms RADIOLOGY RESULTS P [place] 82 degrees RADIOLOGY RESULTS R AXIS 77 degrees RADIOLOGY RESULTS T [place] 59 degrees RADIOLOGY RESULTS Interpretation ECG Sinus rhythm Normal ECG When compared with ECG of 26-APR-2019 10:02, No significant change was found Unconfirmed report - interpretation of this ECG is computer generated - see medical record for final interpretation Confirmed by - EMERGENCY ROOM, PHYSICIAN ([id number]), supervising editor news reel [facility] ([id number]) on 06/05/2023 12:08:34 PM RADIOLOGY RESULTS 06/05/2023 12:0 1 PM BUTTON INSPECTOR 06/05/2023 12:08 PM BUTTON INSPECTOR Ulises Orozco MD ECG ORDERABLES RADIOLOGY RESULTS * (ABNORMAL) Factor 10 chromogenic (05/27/2023 1:46 PM BUTTON INSPECTOR) Factor 10 Chromogenic 44(L) 70 - 130 % 05/29/2023 8:32 AM BUTTON INSPECTOR [facility] Blood BLOOD SPECIMEN / Unknown Venipuncture / Unknown 05/27/2023 1:46 PM BUTTON INSPECTOR 05/27/2023 1:47 PM BUTTON INSPECTOR Narrative [facility] - 05/29/2023 8:32 AM BUTTON INSPECTOR Therapeutic Range: ??A Chromogenic Factor 10 level of approximately 20-40% inversely correlates with an INR of 2-3 for patients receiving Warfarin. Chromogenic Factor 10 levels below 20% indicate an INR greater than 3 and levels above 40% indicate an INR less than 2. Jose Moore MD LAB - BLOOD ORDERABL ES [facility] Special Coagulation [address] [facility] [address] Building, Room [address] [place] [address] [phone] * Head CT w/o contrast (04/11/2023 2:18 [...] further characterization. YASMINE LAWSON MD SYSTEM ID: ??[id number] Narrative 04/11/2023 3:[address] OF [...] further characterization. YASMINE LAWSON MD SYSTEM ID: [id number] Marco Charles MD IMG CT ORDERABLES * (ABNORMAL) INR (04/11/2023 1:52 PM CDT) INR 1.62(H) 0.85 - 1.15 04/11/2023 2:09 PM CDT LABORATORY Blood BLOOD SPECIMEN / Unknown Venipuncture / Unknown 04/11/2023 1:52 PM CDT 04/11/2023 1:59 PM CDT Marco Charles MD LAB - BLOOD ORDER PEDRITO LABORATORY [facility] Lab [address] Lab (1st floor, no room number) [place] [address], [facility] [phone] from Last 3 Months Advance Directives For more information, please contact: [phone] Latest Code Status on File Code Status [...] 7:22 PM 05/09/2012 11:13 AM Care Teams Senior Research Analyst Relationship Specialty Start Date End Date Shankar Peñaloza MD [address] [place] [address] [place] [address] PCP - General Internal Medicine 09/25/13 Navdeep Waldron MD [facility] [address] [place] [address] Physical Medicine & Rehabilitation - Pain Medicine 07/07/13 Shankar Peñaloza MD [address] [place] [address] [place] [address] Assigned PCP 07/22/16 Richardson Alberts PA-C [address] [place] [address] Physician Supervising Nurse Gastroenterology 03/01/22 Shankar Peñaloza MD [address] [place] [address] [place] [address] Assigned Pain Medication Provider 06/17/22 Marielena Sunshine PA-C [address] [facility] [address] [place] [address] Physician Supervising Nurse Urology 10/03/22 Radha Rivas Personal Advocate & Liaison (PAL) 11/26/22 Marielena Sunshine PA-C [address] [facility] [address] [place], [place] [address] Assigned Surgical Provider 12/07/22 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 LICSW [address] [place] [address] Powertrain Control Systems Engineer Powertrain Control Systems Engineer - Clinical 06/23/23
--- OUTSIDE RECORDS SUMMARY | 2023-07-07 10:29 | XMS_ITS | Encounter Summary ---
Author Name Unknown Organization [facility] Address [address] [place] [address] Care Team Providers Care Welder Repair Name Role Phone Navdeep Waldron MD Unavailable [phone] Shankar Peñaloza MD Primary Care Provider [phone] Shankar Peñaloza MD Unavailable [phone] Richardson Alberts PA-C Unavailable Shankar Peñaloza MD Unavailable [phone] Marielena Sunshine PA-C Unavailable Radha Rivas Unavailable Unavailable Marielena Sunshine PA-C Unavailable 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SW Unavailable [phone] Encounter Details Date Type Department Care Team (Late st Contact Info) Description 06/11/2023 Marco Antonio Medical Ciaran Feliz [address] [address] Suzi Yao MA Social History [...] st Contact Info) Description 07/16/2023 3:30 PM OPHTHALMIC DISPENSER Office Visit [facility] [place] [address] [facility] [address] [place] [address] Shankar Peñaloza MD [address] [facility] [place] [id number] 2023 3:00 PM OPHTHALMIC DISPENSER Virtual Visit [facility] [address] [place] [address] 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, [facility] [address] [place] [address] 08/13/2023 2:30 PM OPHTHALMIC DISPENSER Office Visit [facility] [address] [place] [address] [place] [address] [place] [address] documented as of this encounter Visit Diagnoses Not on filedocumented in this encounter Additional Health Concerns Assessment Noted Time PHQ-9 Depression Total Score: 21 024 4:47 PM OPHTHALMIC DISPENSER documented as of this encounter Care Teams Welder Repair Relationship Specialty Start Date End Date Shankar Peñaloza MD [address] [place] [address] [place] [address] PCP - General Internal Medicine 09/25/13 Navdeep Waldron MD [facility] [address] [place] [address] Physical Medicine & Rehabilitation - Pain Medicine 07/07/13 Shankar Peñaloza MD [address] [place] [address] [place] [address] Assigned PCP 07/22/16 Richardson Alberts PA-C [address] [facility] [place] [address] Physician Javascript Web Developer Gastroenterology 03/01/22 Shankar Peñaloza MD [address] [place] [address] [place] [address] Assigned Pain Medication Provider 06/17/22 Marielena Sunshine PA-C [address] [facility] [address] [place], [place] [address] Physician Javascript Web Developer Urology 10/03/22 Radha Rivas Personal Advocate & Liaison (PAL) 11/26/22 Marielena Sunshine PA-C [address] [facility] [address] [place], [place] [address] Assigned Surgical Provider 12/07/22 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 LICSW [address] [place] [address] Tong Carrier Tong Carrier - Clinical 06/23/23 documented as of this encounter
--- OUTSIDE RECORDS SUMMARY | 2023-07-07 10:29 | XMS_ITS | Encounter Summary ---
Author Name Unknown Organization [facility] Address [address] [place] [address] Care Team Providers Care Superintendent Transportation Name Role Phone Navdeep Waldron MD Unavailable [phone] Shankar Peñaloza MD Primary Care Provider Shankar Peñaloza MD Unavailable [phone] Richardson Alberts PA-C Unavailable [phone] Shankar Peñaloza MD Unavailable [phone] Marielena Sunshine PA-C Unavailable Radha Rivas Unavailable Unavailable Marielnea Sunshine PA-C Unavailable 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 [facility] Unavailable Reason for Referral * Mental Health Outpatient (Routine: Next available opening) - Pending Review Specialty Diagnoses / Procedures Referred By Arlet t Referred To Contact Behavioral Health Diagnoses Severe episode of recurrent major depressive disorder, without psychotic features (H) Liz Mercado PA-C [address] [place] [address] Referral ID Status Reason Start Date Expiration Date V isits Requested Visits Authorized [id number] Pending Review 06/25/2023 06/24/2024 1 1 Question Answer Services: Psychiatry/Med Management Reason for Referral - REVIEW REFERENCE LINK BELOW: Short-term consultation & return to PCP/Collaborative Care (CCPS) My Clinical Question Is: Has been on many medications and history of seratonin syndrome Scheduling Instructions: [employer] will call you to coordinate your care as prescribed by your provider. If you don't hear from a sales representative [employer] within 2 business days, please call . Comments Please be aware that coverage of these services is subject to the terms and limitations of your health insurance plan. Call member services at your health plan with any benefit or coverage questions. [employer] will call you to coordinate your care as prescribed by your provider. If you don't hear from a sales representative [employer] within 2 business days, please call . 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 If you don? t hear from a sales representative [employer] within 2 business days, please call . Comments Please be aware that coverage of these services is subject to the terms and limitations of your health insurance plan. Call member services at your health plan with any benefit or coverage questions. [employer] will call you to coordinate your care as prescribed by the provider. If you don? t hear from a sales representative [employer] within 2 business days, please call . LE STITCH OPERATOR Reason for Visit * Reason Comments ER F/U 1. Follow up 023GI concerns, needing an antacid, c/o choking sensation Anxiety 2. 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); Globus [...] Comments Blood Pressure 128/84 06/25/2023 9:53 AM SADDLE STITCH OPERATOR Pulse 79 06/25/2023 9:53 AM SADDLE STITCH OPERATOR Temperature 36.8 ??C (98.2 ??F) 06/25/2023 9:53 AM CS T Respiratory Rate 15 06/25/2023 9:53 AM SADDLE STITCH OPERATOR Oxygen Saturation 96% 06/25/2023 9:53 AM SADDLE STITCH OPERATOR Inhaled Oxygen Concentration - - Weight 85.8 kg (189 lb 3.2 oz) 06/25/2023 9:53 A M SADDLE STITCH OPERATOR Height 168.9 cm (5' 6.5) 06/25/2023 9:53 AM SADDLE STITCH OPERATOR Body Mass Index 30.08 06/25/2023 9:53 AM SADDLE STITCH OPERATOR documented in this encounter Patient Instructions * Patient Instructions* Liz Mercado PA-C - 06/25/2023 10:00 AM SADDLE STITCH OPERATOR Referral to Behavioral Health Clinician (BHC)- Radha [...] will happen when I meet with a [facility]? [facility] ask questions to better understand your concerns. They will provide brief, solution-focused therapy. They can also make referrals to a specialty therapist or other services to help you reach your goals. How do I schedule an appointment with the [facility]? Call and ask for a [facility] appointment. How much time will I spend with the [facility]? First visits are 45-60 minutes. Return visits are typically 20-30 minutes. How does billing work? Outpatient mental health services are billed to insurance. Most plans don't charge a second co-pay if you see your primary care provider (PCP) the same day. Please verify your coverage and ask about your copay. LE STITCH OPERATOR * Attachments The following attachments cannot be sent through Care Everywhere. 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 Referral placed and will be faxed for patient. Increased pantoprazole to twice daily and added Pepcid. Reviewed the medications used for reflux with patient so she knows how they work and when to use. - Adult GI Import Dispatcher Referral - Consult Only; Future - pantoprazole (PROTONIX) 40 MG EC tablet; Take 1 tablet (40 mg) by mouth 2 times daily - famotidine (PEPCID) 20 MG tablet; Take 1-2 tablets (20-40 mg) by mouth 2 times daily as needed (reflux, globus sensation) Globus sensation As noted above. - Adult GI Import Dispatcher Referral - Consult Only; Future - famotidine [...] RYAN completed today. - Adult Mental Health Import Dispatcher Referral; Future Nausea and vomiting in adult [...] has been told this previous. Agrees to fruit or nut picker the Narcan to have on hand at home. She is using the Ativan sparingly (has a few tablets left still from the ER visit 2 weeks ago. - LORazepam (ATIVAN) 1 MG tablet; Take 0.5 tablets (0.5 mg) by mouth every 8 hours as needed for anxiety, vomiting or nausea - naloxone (NARCAN) 4 MG/0.1ML nasal spray; Newton Hamilton 1 spray (4 mg) into one nostril [...] is taking medications regularly. ED/UC Followup: Facility: [facility] [place] Date of visit: 06/05/2023 Reason for visit: [...] times. Signed Electronically by: Liz Mercado PA-C LE STITCH OPERATOR documented in this encounter Plan of Treatment Upcoming Encounters Date Type Department Care Team (Late st Contact Info) Description 07/16/2023 3:30 PM SADDLE STITCH OPERATOR Office Visit [place] [id number] [place] [address] Shankar Peñ[place] [address] [place] [address] [place] [address] 2023 3:00 PM SADDLE STITCH OPERATOR Virtual Visit [facility] [address] [place] [address] 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, [facility] 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 Globus sensation Expected: 06/25/2023 (Approximate), Expires: 06/25/2024 Adult Mental Health Import Dispatcher Referral Referral Routine: Next available opening Severe [...] Depression Total Score: 22 024 9:33 AM SADDLE STITCH OPERATOR documented as of this encounter Care Teams Superintendent Transportation Relationship Specialty Start Date End Date Shankar Peñaloza MD [address] [place] [address] [place] [address] PCP - General Internal Medicine 09/25/13 Navdeep Waldron MD [facility] [address] [place] [address] Physical Medicine & Rehabilitation - Pain Medicine 07/07/13 Shankar Peñaloza MD [address] [place] [address] [place] [address] Assigned PCP 07/22/16 Richardson Alberts PA-C [address] [place] [address] Physician Teacher Learning Disabled Gastroenterology 03/01/22 Shankar Peñaloza MD [address] [place] [address] [place] [address] Assigned Pain Medication Provider 06/17/22 Marielena Sunshine PA-C [address] [facility] [address] [place] [address] Physician Teacher Learning Disabled Urology 10/03/22 Radha Rivas Personal Advocate & Liaison (PAL) 11/26/22 Marielena Sunshine PA-C [address] [facility] [address] [place] [address] Assigned Surgical Provider 12/07/22 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 LICSW [address] [place] [address] Sports Editor Sports Editor - Clinical 06/23/23 documented as of this encounter
--- OUTSIDE RECORDS SUMMARY | 2023-07-07 10:29 | XMS_ITS | Encounter Summary ---
Author Name Unknown Organization [place] Address [address] [place] [address]. [place] [address] Care Team Providers Care Hydraulic Tester Name Role Phone Navdeep Waldron MD Unavailable [phone] Shankar Peñaloza MD Primary Care Provider [phone] Shankar Peñaloza MD Unavailable [phone] Richardson Alberts-C Unavailable [phone] Shankar Peñaloza MD Unavailable [phone] Marielena Sunshine PA-C Unavailable Radha Rivas Unavailable Unavailable Marielena Sunshine PA-C Unavailable 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SW Unavailable Reason for Visit * Reason Onset Date Comments MyChart Communication 06/20/2023 Appointmen t Encounter Details Date Type Department Care Team (Late st Contact Info) Description 06/20/2023 [facility] Ciaran Feliz [facility] [address] [place] [address] [place] [address] [place] [address] Kai Communication (Appointment/) Social History [...] Christel Meléndez RN - 06/24/2023 2:43 PM PLANT ASSOCIATE Spoke with patient and reviewed provider recommendations. Patient verbalized understanding. Patientscheduled appointment with provider at [facility] tomorrow AM: Appointments in Next Year Jun 25, 2023 10:00 AM (Arrive by 9:40 AM) Provider Visit with Liz Mercado PA-C [facility] ) [phone] Patient states that she will call [facility] this afternoon to schedule appointment. Patient instructed to call back with any new or worsening symptoms. Patient verbalized understanding and agrees with plan. Christel Penaloza RN, BSN, PHN T ASSOCIATE * Telephone Encounter - Christel Meléndez RN - 06/24/2023 1:54 PM PLANT ASSOCIATE Contacted patient to get more information about symptoms. Patient reports that she has had severe nausea and anxiety due to persistent globus sensation. Patient has history of Jama's esophagus. Patient was seen in the ER on 06/05/23 for above concerns. Patient was evaluated and ER provider recommended close outpatient follow up with PCP and GI. Patient's current PCP is Dr. Peñaloaz, but patient reports that would like Dr. [...] she would like to be seen at [facility] in [place] instead. Referral faxed to [facility] at [phone] and patient advised to call this afternoon to schedule appointment. Huddled with Dr. Sutherland who advised that patient should be seen by any available provider this week to address above concerns as well as recommended that [facility]. Christel Penaloza RN, BSN, PHN T ASSOCIATE * Telephone Encounter - Elvi Quinones RN - 06/20/2023 3:52 PM CST Routed to [facility], pt wants earlier appointment with Dr Tracey, has different PCP, has appointment withP 07/16/23 Please call pt to check on earlier appointment, see Mychart message Elvi Quinones RN, BSN [facility] T ASSOCIATE documented in this encounter Plan of Treatment Upcoming Encounters Date Type Department Care Team (Late st Contact Info) Description 07/16/2023 3:30 PM PLANT ASSOCIATE Office Visit [address] [place] [address] Shankar Peñ[place] [address] [place] [address] [place] [address] 2023 3:00 PM PLANT ASSOCIATE Virtual Visit [facility] [address] [place] [address] 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, [address] [address] 08/13/2023 2:30 PM PLANT ASSOCIATE Office Visit [facility] [address] [place] [address] [place] [address] [place] [address] documented as of this encounter Visit Diagnoses Not on filedocumented in this encounter Additional Health Concerns Assessment Noted Time PHQ-9 Depression Total Score: 21 024 4:47 PM PLANT ASSOCIATE documented as of this encounter Care Teams Hydraulic Tester Relationship Specialty Start Date End Date Shankar Peñaloza MD [address] [place] [address] [place] [address] PCP - General Internal Medicine 09/25/13 Navdeep Waldron MD [facility] [address] [place] [address] Physical Medicine & Rehabilitation - Pain Medicine 07/07/13 Shankar Peñaloza MD [address] [place] [address] [place] [address] Assigned PCP 07/22/16 Richardson Alberts PA-C [address] [place] [address] Physician Locomotive Driver Gastroenterology 03/01/22 Shankar Peñaloza MD [address] [place] [address] [place] [address] Assigned Pain Medication Provider 06/17/22 Marielena Sunshine PA-C [address] [facility] [address] [place] [address] Physician Locomotive Driver Urology 10/03/22 Radha Rivas Personal Advocate & Liaison (PAL) 11/26/22 Marielena Sunshine PA-C [address] [facility] [address] [place], [place] [address] Assigned Surgical Provider 12/07/22 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 LICSW [address] [place] [address] Rotary Drier Operator Rotary Drier Operator - Clinical 06/23/23 documented as of this encounter
--- OUTSIDE RECORDS SUMMARY | 2023-07-07 10:29 | XMS_ITS | Encounter Summary ---
Author Name Unknown Organization [place] Address [address] [place] [address] Care Team Providers Care Candy Dipper Name Role Phone Navdeep Waldron MD Unavailable [phone] Shankar Peñaloza MD Primary Care Provider [phone] Shankar Peñaloza MD Unavailable [phone] Richardson Alberts PA-C Unavailable [phone] Shankar Peñaloza MD Unavailable [phone] Marielena Sunshine PA-C Unavailable Radha Rivas Unavailable Unavailable Marielena Sunshine PA-C Unavailable [phone] 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SW Unavailable [phone] Encounter Details Date Type Department Care Team [...] st Contact Info) Description 07/16/2023 3:30 PM SECOND OPERATOR [facility] [address] [place] [phone] Shankar Peñaloza MD [address] [facility] [place] [address] 2023 3:00 PM SECOND OPERATOR Virtual Visit [facility] [address] [place] [phone] 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, [address] [place] [address] 08/13/2023 2:30 PM SECOND OPERATOR Office Visit [facility] [address] [place] [address] [place] [address] [place] [address] documented as of this encounter Visit Diagnoses Not on filedocumented in this encounter Additional Health Concerns Assessment Noted Time PHQ-9 Depression Total Score: 22 024 9:33 AM SECOND OPERATOR documented as of this encounter Care Teams Candy Dipper Relationship Specialty Start Date End Date Shankar Peñaloza MD [address] [place] [address] [place] [address] PCP - General Internal Medicine 09/25/13 Navdeep Waldron MD [facility] [address] [place] [address] Physical Medicine & Rehabilitation - Pain Medicine 07/07/13 Shankar Peñaloza MD [address] [place] [address] [place] [address] Assigned PCP 07/22/16 Richardson Alberts PA-C [address] [place] [address] Physician Noodle Catalyst Maker Gastroenterology 03/01/22 Shankar Peñaloza MD [address] [place] [address] [place] [address] Assigned Pain Medication Provider 06/17/22 Marielena Sunshine PA-C [address] [facility] [address] [place] [address] Physician Noodle Catalyst Maker Urology 10/03/22 Radha Rivas Personal Advocate & Liaison (PAL) 11/26/22 Marielena Sunshine PA-C [address] [facility] [address] [place] [address] Assigned Surgical Provider 12/07/22 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 LICSW [address] [place] [address] Media Sales Consultant Media Sales Consultant - Clinical 06/23/23 documented as of this encounter
--- OUTSIDE RECORDS SUMMARY | 2023-07-07 10:29 | XMS_ITS | Encounter Summary ---
Author Name Unknown Organization [place] Address [address] [place] [address]. [place] [address] Care Team Providers Care Manager Hydraulic Name Role Phone Navdeep Waldron MD Unavailable [phone] Shankar Peñaloza MD Primary Care Provider [phone] Shankar Peñaloza MD Unavailable [phone] Richardson Alberts PA-C Unavailable [phone] Shankar Peñaloza MD Unavailable [phone] Marielena Sunshine PA-C Unavailable Radha Rivas Unavailable Unavailable Marielena Sunshine PA-C Unavailable Reason for Visit * Reason Comments Medication Refill Encounter Details Date Type Department Care Team (Late st Contact Info) Description [facility] [address] [place] [address] [place] [address] [place] [address] Medication Refill Social History Tobacco [...] st Contact Info) Description 07/16/2023 3:30 PM MAJOR LEAGUE BASEBALL UMPIRE Office Visit [facility] [place] [address] [place] [address] Shankar Peñaloza MD [address] [facility] [place] [id number] 2023 3:00 PM MAJOR LEAGUE BASEBALL UMPIRE Virtual Visit [facility] [place] [address] [place] [address] 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 [facility] [address] [place] [address] 08/13/2023 2:30 PM MAJOR LEAGUE BASEBALL UMPIRE Office Visit [facility] [address] [place] [phone] [place] [address] [place] [address] documented as of this encounter Visit Diagnoses Diagnosis Benign essential hypertension Essential hypertension, benign documented in this encounter Additional Health Concerns Assessment Noted Time PHQ-9 Depression Total Score: 19 023 10:41 AM CDT documented as of this encounter Care Teams Manager Hydraulic Relationship Specialty Start Date End Date Shankar Peñaloza MD [address] [facility] [place] [address] PCP - General Internal Medicine 09/25/13 Navdeep Waldron MD [facility] [address] [place] [address] Physical Medicine & Rehabilitation - Pain Medicine 07/07/13 Shankar Peñaloza MD [address] [place] [address] [place] [address] Assigned PCP 07/22/16 Richardson Alberts PA-C [address] [facility] [place] [address] Physician Conference Manager Gastroenterology 03/01/22 Shankar Peñaloza MD [address] [facility] [place] [address] Assigned Pain Medication Provider 06/17/22 Marielena Sunshine PA-C [address] [facility] [address] [place], [place] [address] Physician Conference Manager Urology 10/03/22 Radha Rivas Personal Advocate & Liaison (PAL) 11/26/22 Marielena Sunshine PA-C [address] [facility] [address] [place], [place] [address] Assigned Surgical Provider 12/07/22 documented as of this encounter
--- OUTSIDE RECORDS SUMMARY | 2023-07-07 10:29 | XMS_ITS | Encounter Summary ---
Author Name Unknown Organization [facility] Address [address] [place] [address]. [place] [address] Care Team Providers Care Client Coordinator Name Role Phone Navdeep Waldron MD Unavailable [phone] Shankar Peñaloza MD Primary Care Provider Shankar Peñaloza MD Unavailable [phone] Richardson AlbertsC Unavailable [phone] Shankar Peñaloza MD Unavailable [phone] Marielena Sunshine PA-C Unavailable Radha Rivas Unavailable Unavailable Marielena Sunshine PA-C Unavailable 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 [facility] Unavailable Reason for Visit * Mental Health Outpatient (Routine: Next available opening) - Closed Specialty Diagnoses / Procedures Referred By Contac t Referred To Contact Behavioral Health Diagnoses Severe episode of recurrent major depressive disorder, without psychotic features ([place]) [place] [address] [place] [address] Referral ID Status Reason Start Date Expiration Date Visits Re quested Visits Authorized [id number] Closed 03/11/2023 03/10/2024 1 1 Encounter Details Date Type Department Care Team (Late st Contact Info) Description 06/23/2023 10:00 AM SUPERVISOR IN CHARGE Virtual Visit [facility] [place] [address] [place] [phone] [place] [address] [place] [address] 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, [facility] [address] [place], [place] [id number] Severe episode of recurrent major depressive disorder, [...] this encounter Progress Notes * 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, UNIFORMS SALES REPRESENTATIVE - 06/23/2023 10:00 AM CST Images from the original note were not included. [facility] Mental Health & Addiction Services Progress [...] Chart Mode of Communication: Video Conference via [facility] Distant Location (Provider): Off-site As [...] her SI are becoming overwhelming. Patient and expert medical writer initiated her DA. She will complete her [...] Score 12 PROMIS TOTAL - SUBSCORES 20 [place] Suicide Severity Rating Scale (Short Version) 04/26/2019 9:44 AM 06/04/2021 1:14 PM 04/11/2023 10:53 AM 06/05/2023 11:27 AM [place] Suicide Severity Rating (Short Version) Over the past 2 weeks have you felt down, depressed, or hopeless? no yes no yes Over the past 2 weeks have you had thoughts of killing yourself? no no no no Have you ever attempted to kill yourself? no no no no Safety Issues and Plan for Safety and Risk Management: [place] Suicide Severity Rating Scale (Short Version) 04/26/2019 9:44 AM 06/04/2021 1:14 PM 04/11/2023 10:53 AM 06/05/2023 11:27 AM [place] Suicide Severity Rating (Short Version) Over the [...] is not confined to features of an [place] I disorder. E. The anxiety, worry, or [...] people?: Extremely difficult PHQ9 TOTAL SCORE: 22 RVISOR IN CHARGE documented in this encounter Plan of Treatment Upcoming Encounters Date Type Department Care Team (Late st Contact Info) Description 07/16/2023 3:30 PM SUPERVISOR IN CHARGE Office Visit [place] [address] [facility] [address] [place] [address] Shankar Peñaloza MD [address] [facility] [place] [address] 2023 3:00 PM SUPERVISOR IN CHARGE Virtual Visit [facility] [address] [place] [address] 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 LICSW [address] [place] [address] 08/13/2023 2:30 PM SUPERVISOR IN CHARGE Office Visit [facility] [address] [place] [address] [place] [address] [facility] [place] [place] [address] documented as of this encounter Visit Diagnoses Diagnosis Severe episode of recurrent major depressive disorder, without psychotic features (H) documented in this encounter Additional Health Concerns Assessment Noted Time PHQ-9 Depression Total Score: 22 024 9:33 AM SUPERVISOR IN CHARGE documented as of this encounter Care Teams Client Coordinator Relationship Specialty Start Date End Date Shankar Peñaloza MD [address] [place] [address] [place] [address] PCP - General Internal Medicine 09/25/13 Navdeep Waldron MD [facility] [address] [place] [address] Physical Medicine & Rehabilitation - Pain Medicine 07/07/13 Shankar Peñaloza MD [address] [place] [address] [place] [address] Assigned PCP 07/22/16 Richardson Alberts PA-C [address] [place] [address] Physician Manager Night Gastroenterology 03/01/22 Shankar Peñaloza MD [address] [place] [address] [place] [address] Assigned Pain Medication Provider 06/17/22 Marielena Sunshine PA-C [address] [facility] [address] [place] [address] Physician Manager Night Urology 10/03/22 Radha Rivas Personal Advocate & Liaison (PAL) 11/26/22 Marielena Sunshine PA-C [address] [place] [address] [place] [address] Assigned Surgical Provider 12/07/22 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 LICSW [address] [place] [address] Consumer Insights Specialist Consumer Insights Specialist - Clinical 06/23/23 documented as of this encounter
--- OUTSIDE RECORDS SUMMARY | 2023-07-07 10:29 | XMS_ITS | Referral Summary ---
Author Name Unknown Organization [facility] Address [address] [place] [address] Care Team Providers Care Prison Guard Supervisor Name Role Phone Navdeep Waldron MD Unavailable [phone] Shankar Peñaloza MD Primary Care Provider Shankar Peñaloza MD Unavailable [phone] Richardson Alberts PA-C Unavailable [phone] Shankar Peñaloza MD Unavailable [phone] Marielena Sunshine PA-C Unavailable Radha Rivas Unavailable Unavailable Marielena Sunshine PA-C Unavailable 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 [facility] Unavailable [phone] Encounters Date Type Department Care Team Description 06/25/2023 Travel 06/25/2023 10:00 AM MOTHER SUPERIOR Office Visit [address] [address] Liz Mercado PA-C 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); Globus sensation; Severe episode of recurrent major depressive disorder, without psychotic features (H); Nausea and vomiting in adult; Epigastric pain; Anxiety; Serotonin syndrome; Rheumatoid arthritis involving multiple sites, unspecified whether rheumatoid factor present (H); Anti-phospholipid antibody syndrome (H24) 06/23/2023 FCC Extended Documentation [facility] [address] [phone] 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 ENTRY DRIVER OPERATOR 06/23/2023 10:00 AM MOTHER SUPERIOR Virtual Visit [facility] [address] [phone] Koko Tracey MD Sinyigaya, Speciose, ENTRY DRIVER OPERATOR Severe episode of recurrent major depressive disorder, without psychotic features (H) 06/20/2023 MyC Medical Advice [facility] [address] [place] [phone] Koko Tracey MD MyChart Communication (Appointment/) 06/20/2023 [facility] [address] [place] [phone] Koko Tracey MD Medication Refill 06/17/2023 MyC Refill [facility] [address] [facility] [address] [place] [phone] Shankar Peñaloza MD Refill Request 06/11/2023 [facility] [address] [place] [phone] Suzi Yao MA 06/10/2023 [facility] [address] [place] [phone] Koko Tracey MD Medication Refill 06/05/2023 4:33 PM MOTHER SUPERIOR - 06/05/2023 6:04 PM [address]HER [address] Emergency [facility] Emergency Dept [address] [place] [address] Ulises Orozco MD Globus sensation; Nausea; History of Ajma's esophagus; Anxiety Discharge Disposition: Home or Self Care 06/03/2023 MyC Medical Advice [facility] [address] [facility] [address] [place] [address] Radha Rivas Outreach 05/30/2023 Medical Correspondence [facility] Info [facility] [address] [facility] [place] [address] Outside, Provider 05/27/2023 Travel 05/27/2023 1:30 PM MOTHER SUPERIOR Allied Health/Nurse Visit [facility] [place] [address] [place] [address] Allied Health Visit (Bp check ) 05/27/2023 1:45 PM MOTHER SUPERIOR Lab [facility] Laboratory [address] [place] [address] Antiphospholipid syndrome (H24) (Primary Dx); Benign essential hypertension 05/20/2023 Refill [facility] [address] [place] [address] [address] [place] [address] Shankar Peñaloza MD Refill Request 05/14/2023 MyC Medical Advice [facility] [place] [address] [place] [address] Ann Vanessa RN Severe episode of recurrent major depressive disorder, without psychotic features (H) (Primary Dx) 05/14/2023 MyC Refill [facility] [address] [facility] [address] [place] [address] Shankar Peñaloza MD Refill Request 05/12/2023 MyC Medical Advice [facility] [place] [address] [place] [address] Nory Howard RN 05/12/2023 Refill [facility] [place] [address] [place] [address] Koko Tracey MD Medication Refill 05/12/2023 8:15 AM MOTHER SUPERIOR E-Visit [facility] [address] [place] [phone] Ania Gomez, PERFORMANCE INSTRUCTOR MODEL DRESSER Cough (Entered automatically based on christopher... 05/08/2023 Telephone [facility] [address] [place] [phone] Koko Tracey MD Medication Refill 04/16/2023 MyC Medical Advice [address] [place] [phone] Shankar Peñaloza MD 04/13/2023 MyC Refill [address] [place] [address] Shankar Peñaloza MD Refill Request 04/11/2023 Travel 04/11/2023 1:25 PM CDT - 04/11/2023 3:[address] [facility] Emergency Dept [address] [place] [address] Marco Charles MD Nonintractable headache, unspecified chronicity pattern, unspecified headache type; Subtherapeutic international normalized ratio (INR) Discharge Disposition: Home or Self Care 04/09/2023 Refill [facility] [address] [place] [phone] Koko Tracey MD Medication Refill 04/09/2023 Travel 04/09/2023 11:30 AM CDT Office Visit [facility] [address] [place] [phone] Koko Tracey MD Severe episode of recurrent [...] Instructions Monitors Chromogenic Factor X via [facility] Alternates between 10 mg and 7.5 [...] 0.06 % nasal sprayIndications: Acute recurrent pansinusitis [place]royo 2 sprays into both nostrils 4 times [...] naloxone (NARCAN) 4 MG/0.1ML nasal sprayIndications: Anxiety Arroyo 1 spray (4 mg) into one nostril alternating nostrils as needed for opioid reversal every 2-3 minutes until assistance arrives 0.2 mL 1 4 Active LORazepam (ATIVAN) 1 MG tabletIndications :Anxiety Take 0.5 tablets (0.5 mg) by mouth every 8 hours as needed for anxiety, vomiting or nausea 12 tablet 0 4 Active naloxone (NARCAN) 4 MG/0.1ML nasal sprayIndications: Fibromyalgia Arroyo 1 spray (4 mg) into one nostril [...] in the past: [facility] Last [facility] website verification: Done on 04/30/19 [...] Comments Blood Pressure 128/84 06/25/2023 9:53 AM MOTHER SUPERIOR Pulse 79 06/25/2023 9:53 AM MOTHER SUPERIOR Temperature 36.8 ??C (98.2 ??F) 06/25/2023 9:53 AM CS T Respiratory Rate 15 06/25/2023 9:53 AM MOTHER SUPERIOR Oxygen Saturation 96% 06/25/2023 9:53 AM MOTHER SUPERIOR Inhaled Oxygen Concentration - - Weight 85.8 kg (189 lb 3.2 oz) 06/25/2023 9:53 A M MOTHER SUPERIOR Height 168.9 cm (5' 6.5) 06/25/2023 9:53 AM MOTHER SUPERIOR Body Mass Index 30.08 06/25/2023 9:53 AM MOTHER SUPERIOR Plan of Treatment Upcoming Encounters Date Type Department Care Team (Late st Contact Info) Description 07/16/2023 3:30 PM MOTHER SUPERIOR Office Visit [facility] [place] [address] [facility] [address] [place] [address] Shankar Peñaloza MD [address] [facility] [place] [phone] 2023 3:00 PM MOTHER SUPERIOR Virtual Visit [facility] [place] [address] [place] [address] GerhardshariJob ponce, ENTRY DRIVER OPERATOR [address] [place] [address] 08/13/2023 2:30 PM MOTHER SUPERIOR [facility] [address] [facility] [address] [place] [address] [facility] CABARRUSChloe [place] [id number] Procedures Procedure Name Priority Date/Time Associated Diagnosis Comments CBC WITH PLATELETS & DIFFERENTIAL STAT 06/05/2023 12:34 PM MOTHER SUPERIOR EXTRA RED TOP TUBE STAT 06/05/2023 12 :34 PM MOTHER SUPERIOR EXTRA BLUE TOP TUBE STAT 06/05/2023 1 2:34 PM MOTHER SUPERIOR CBC WITH PLATELETS AND DIFFERENTIAL STAT 06/05/2023 12:34 PM MOTHER SUPERIOR EXTRA TUBE STAT 06/05/2023 12:34 PM MOTHER SUPERIOR TROPONIN T, HIGH SENSITIVITY STAT 06/05/2023 12:34 PM MOTHER SUPERIOR BASIC METABOLIC PANEL STAT 06/05/2023 12:34 PM MOTHER SUPERIOR EKG 12-LEAD, TRACING ONLY STAT 06/05/2023 12:01 PM MOTHER SUPERIOR FACTOR 10 CHROMOGENIC Routine 05/27/2023 1:46 PM MOTHER SUPERIOR Antiphospholipid syndrome (H24) BASIC METABOLIC PANEL Routine 05/27/2023 1:32 PM MOTHER SUPERIOR Benign essential hypertension CT HEAD W/O CONTRAST [...] Extra Red Top Tube (06/05/2023 12:34 PM MOTHER SUPERIOR) Only the most recent of2 resultswithin the time period is included. Hold Specimen [facility] 06/05/2023 1:47 PM MOTHER SUPERIOR [facility] Blood STRUCTURE OF LEFT UPPER LIMB / Unknown Venipuncture / Unknown 06/05/2023 12:34 PM MOTHER SUPERIOR 06/05/2023 12:46 PM MOTHER SUPERIOR Ulises Orozco MD LAB - BLOOD ORDERABL ES [facility] Care Lab [address] Lab (1st floor, no room number) [place] [address], [facility] [phone] * Extra Blue Top Tube (06/05/2023 12:34 PM MOTHER SUPERIOR) Hold Specimen [facility] 06/05/2023 1:47 PM MOTHER SUPERIOR [facility] Blood STRUCTURE OF LEFT UPPER LIMB / Unknown Venipuncture / Unknown 06/05/2023 12:34 PM MOTHER SUPERIOR 06/05/2023 12:46 PM MOTHER SUPERIOR Ulises Orozco MD LAB - BLOOD ORDERABL ES [facility] Acute Care Lab [address] Lab (1st floor, no room number) [place] [address], [facility] [phone] * CBC with platelets and differential (06/05/2023 12:34 PM MOTHER SUPERIOR) Only the most recent of2 resultswithin the time period is included. WBC Count 7.9 4.0 - 11.0 10e3/uL 06/05/2023 12:50 PM MOTHER SUPERIOR [facility] RBC Count 4.56 3.80 - 5.20 10e6/uL 06/05/2023 12:50 PM MOTHER SUPERIOR [facility] Hemoglobin 13.2 11.7 - 15.7 g/dL 06/05/2023 12:50 PM MOTHER SUPERIOR [facility] Hematocrit 40.2 35.0 - 47.0 % 06/05/2023 12:50 PM MOTHER SUPERIOR [facility] MCV 88 78 - 100 fL 06/05/2023 12:50 PM MOTHER SUPERIOR [facility] MCH 28.9 26.5 - 33.0 pg 06/05/2023 12:50 PM MOTHER SUPERIOR [facility] MCHC 32.8 31.5 - 36.5 g/dL 06/05/2023 12:50 PM MOTHER SUPERIOR [facility] RDW 12.5 10.0 - 15.0 % 06/05/2023 12:50 PM MOTHER SUPERIOR [facility] Platelet Count 217 150 - 450 10e3/uL 06/05/2023 12:50 PM MOTHER SUPERIOR [facility] % Neutrophils 86 % 06/05/2023 12:50 PM MOTHER SUPERIOR [facility] % Lymphocytes 10 % 06/05/2023 12:50 PM MOTHER SUPERIOR [facility] % Monocytes 3 % 06/05/2023 12:50 PM MOTHER SUPERIOR [facility] % Eosinophils 1 % 06/05/2023 12:50 PM MOTHER SUPERIOR [facility] % Basophils 0 % 06/05/2023 12:50 PM MOTHER SUPERIOR [facility] % Immature Granulocytes 0 % 06/05/2023 12:50 PM MOTHER SUPERIOR [facility] NRBCs per 100 WBC 0 <1 /100 023 12:50 PM MOTHER SUPERIOR [facility] Absolute Neutrophils 6.8 1.6 - 8.3 10e3/uL 06/05/2023 12:50 PM MOTHER SUPERIOR [facility] Absolute Lymphocytes 0.8 0.8 - 5.3 10e3/uL 06/05/2023 12:50 PM MOTHER SUPERIOR [facility] Absolute Monocytes 0.3 0.0 - 1.3 10e3/uL 06/05/2023 12:50 PM MOTHER SUPERIOR [facility] Absolute Eosinophils 0.1 0.0 - 0.7 10e3/uL 06/05/2023 12:50 PM MOTHER SUPERIOR [facility] Absolute Basophils 0.0 0.0 - 0.2 10e3/uL 06/05/2023 12:50 PM MOTHER SUPERIOR [facility] Absolute Immature Granulocytes 0.0 <=0.4 10e3/uL 06/05/2023 12:50 PM MOTHER SUPERIOR [facility] Absolute NRBCs 0.0 10e3/uL 06/05/2023 12:50 PM MOTHER SUPERIOR [facility] Blood STRUCTURE OF LEFT UPPER LIMB / Unknown Venipuncture / Unknown 06/05/2023 12:34 PM MOTHER SUPERIOR 06/05/2023 12:46 PM MOTHER SUPERIOR Ulises Orozco MD LAB - BLOOD ORDERABL ES LABORATORY [facility] Acute Care Lab [address] [facility] Lab (1st floor, no room number) [place] [address], [facility] [phone] * Troponin T, High Sensitivity (now) (06/05/2023 12:34 PM MOTHER SUPERIOR) [facility] Troponin T, High Sensitivity 9 <=14 ng/L 06/05/2023 1:21 PM MOTHER SUPERIOR [facility] Comment: Either a High Sensitivity [...] Unknown Venipuncture / Unknown 06/05/2023 12:34 PM MOTHER SUPERIOR 06/05/2023 12:46 PM MOTHER SUPERIOR Ulises Orozco MD LAB - BLOOD ORDERABL ES [facility] Acute Care Lab [address] [facility] Lab (1st floor, no room number) [place] [address], [facility] [phone] * (ABNORMAL) Basic metabolic panel (BMP) (06/05/2023 12:34 PM MOTHER SUPERIOR) Only the most recent of3 resultswithin the time period is included. [facility] Sodium 139 135 - 145 mmol/L 06/05/2023 1:21 PM [facility] Comment:Reference intervals for this test were updated on 03/04/2023 to more accurately reflect our healthy population. There may be differences in the flagging of prior results with similar values performed with this method. Interpretation of those prior results can be made in the context of the updated reference intervals. Potassium 3.9 3.4 - 5.3 mmol/L 06/05/2023 1:21 PM [facility] Chloride 102 98 - 107 mmol/L 06/05/2023 1:21 PM [facility] Carbon Dioxide (CO2) 24 22 - 29 mmol/L 06/05/2023 1:21 PM [facility] Anion Gap 13 7 - 15 mmol/L 06/05/2023 1:21 PM [facility] Urea Nitrogen 18.4 6.0 - 20.0 mg/dL 06/05/2023 1:21 PM [facility] Creatinine 0.97(H) 0.51 - 0.95 mg/dL 06/05/2023 1:21 PM [facility] GFR Estimate 68 >60 mL/min/1. 73m2 06/05/2023 1:21 PM [facility] Calcium 9.4 8.6 - 10.0 mg/dL 06/05/2023 1:21 PM [facility] Glucose 117(H) 70 - 99 mg/dL 06/05/2023 1:21 PM [facility] Blood STRUCTURE OF LEFT UPPER LIMB / Unknown Venipuncture / Unknown 06/05/2023 12:34 PM MOTHER SUPERIOR 06/05/2023 12:46 PM MOTHER SUPERIOR Ulises Orozco MD LAB - BLOOD ORDERABL ES LABORATORY [facility] Acute Care Lab [address] [facility] Lab (1st floor, no room number) [place] [address], [facility] [phone] * EKG 12-lead, tracing only (06/05/2023 12:01 PM MOTHER SUPERIOR) Systolic Blood Pressure mmHg RADIOLOGY RESULTS Diastolic Blood Pressure mmHg RADIOLOGY RESULTS Ventricular Rate 69 BPM RAD IOLOGY RESULTS Atrial Rate 69 BPM RADIOLOG Y RESULTS ND Interval 158 ms RADIOLOG Y RESULTS QRS Duration 86 ms RADIOLO GY RESULTS QT 428 ms RADIOLOGY RESULTS QTc 458 ms RADIOLOGY RESULTS P [place] 82 degrees RADIOLOGY RESULTS R AXIS 77 degrees RADIOLOGY RESULTS T [place] 59 degrees RADIOLOGY RESULTS Interpretation ECG Sinus rhythm Normal ECG When compared with ECG of 26-APR-2019 10:02, No significant change was found Unconfirmed report - interpretation of this ECG is computer generated - see medical record for final interpretation Confirmed by - EMERGENCY ROOM, PHYSICIAN ([id number]), assistant editor [facility] ([id number]) on 06/05/2023 12:08:34 PM RADIOLOGY RESULTS 06/05/2023 12:0 1 PM MOTHER SUPERIOR 06/05/2023 12:08 PM MOTHER SUPERIOR Ulises Orozco MD ECG ORDERABLES RADIOLOGY RESULTS * (ABNORMAL) Factor 10 chromogenic (05/27/2023 1:46 PM MOTHER SUPERIOR) Factor 10 Chromogenic 44(L) 70 - 130 % 05/29/2023 8:32 AM MOTHER SUPERIOR [facility] Blood BLOOD SPECIMEN / Unknown Venipuncture / Unknown 05/27/2023 1:46 PM MOTHER SUPERIOR 05/27/2023 1:47 PM MOTHER SUPERIOR Narrative [facility] - 05/29/2023 8:32 AM MOTHER SUPERIOR Therapeutic Range: ??A Chromogenic Factor 10 level of approximately 20-40% inversely correlates with an INR of 2-3 for patients receiving Warfarin. Chromogenic Factor 10 levels below 20% indicate an INR greater than 3 and levels above 40% indicate an INR less than 2. Jose Moore MD LAB - BLOOD ORDERABL ES [facility] [address] [facility] [address] Building, Room [address] [place] [address], [facility] [phone] * Head CT w/o contrast (04/11/2023 2:18 [...] further characterization. YASMINE LAWSON MD SYSTEM ID: ??[id number] Narrative 04/11/2023 3:[address] OF [...] further characterization. YASMINE LAWSON MD SYSTEM ID: [id number] Marco Charles MD IMG CT ORDERABLES * (ABNORMAL) INR (04/11/2023 1:52 PM CDT) INR 1.62(H) 0.85 - 1.15 04/11/2023 2:09 PM CDT LABORATORY Blood BLOOD SPECIMEN / Unknown Venipuncture / Unknown 04/11/2023 1:52 PM CDT 04/11/2023 1:59 PM CDT Marco Charles MD LAB - BLOOD ORDER PEDRITO [facility] Acute Care Lab [address] Lab (1st floor, no room number) [place] [address], [facility] [phone] from Last 3 Months Advance Directives For more information, please contact: [phone] Latest Code Status on File Code Status [...] 7:22 PM 05/09/2012 11:13 AM Care Teams Prison Guard Supervisor Relationship Specialty Start Date End Date Shankar Peñaloza MD [address] [place] [address] [place] [address] PCP - General Internal Medicine 09/25/[address] [facility] [address] [place] [address] Physical Medicine & Rehabilitation - Pain Medicine 07/07/13 Shankar Peñaloza MD [address] [place] [address] [place] [address] Assigned PCP 07/22/16 Richardson Alberts PA-C [address] [place] [address] Physician Sales/Marketing Gastroenterology 03/01/22 Shankar Peñaloza MD [address] [facility] [place] [address] Assigned Pain Medication Provider 06/17/22 Marielena Sunshine PA-C [address] [facility] [address] [place] [address] Physician Sales/Marketing Urology 10/03/22 Radha Rivas Personal Advocate & Liaison (PAL) 11/26/22 Marielena Sunshine PA-C [address] [facility] [address] [place] [address] Assigned Surgical Provider 12/07/22 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 LICSW [address] [place] [address] Resource Recovery Specialist Resource Recovery Specialist - Clinical 06/23/23
--- OUTSIDE RECORDS SUMMARY | 2023-07-07 10:29 | XMS_ITS | Encounter Summary ---
Author Name Unknown Organization [place] Address [address] [place] [address] Care Team Providers Care Pulp Grinder Feeder Name Role Phone Navdeep Waldron MD Unavailable [phone] Shankar Peñaloza MD Primary Care Provider Shankar Peñaloza MD Unavailable [phone] Richardson Alberts PA-C Unavailable [phone] Shankar Peñaloza MD Unavailable [phone] Marielena Sunshine PA-C Unavailable Radha Rivas Unavailable Unavailable Marielena Sunshine PA-C Unavailable Sinyijin Specsigrid AUCTION ASSISTANT Unavailable [phone] Encounter Details Date Type Department Care Team (Late st Contact Info) Description 06/23/2023 [facility] [place] [address] [place] [phone] Sinyigakris, Speciose, AUCTION ASSISTANT [address] [place], [place] [id number] Social History Tobacco Use Types Packs/Day Years [...] st Contact Info) Description 07/16/2023 3:30 PM REVENUE CYCLE SPECIALIST Office Visit [facility] Keisha [address] [place] [phone] Shankar Peñaloza MD [address] [facility] [place] [id number] 2023 3:00 PM REVENUE CYCLE SPECIALIST Virtual [facility] [place] [address] [place] [address] GerhardshariJob ponce, [facility] [address] [place] [address] 08/13/2023 2:30 PM REVENUE CYCLE SPECIALIST Office Visit [facility] [address] [place] [address] [place] [address] [place] [address] documented as of this encounter Visit Diagnoses Not on filedocumented in this encounter Additional Health Concerns Assessment Noted Time PHQ-9 Depression Total Score: 22 024 9:33 AM REVENUE CYCLE SPECIALIST documented as of this encounter Care Teams Pulp Grinder Feeder Relationship Specialty Start Date End Date Shankar Peñaloza MD [address] [place] [address] [place] [address] PCP - General Internal Medicine 09/25/13 Navdeep Waldron MD [facility] [address] [place] [address] Physical Medicine & Rehabilitation - Pain Medicine 07/07/13 Shankar Peñaloza MD [address] [place] [address] [place] [address] Assigned PCP 07/22/16 Richardson Alberts PA-C [address] [facility] [place] [address] Physician Clinical Informatics Spec Gastroenterology 03/01/22 Shankar Peñaloza MD [address] [facility] [place] [address] Assigned Pain Medication Provider 06/17/22 Marielena Sunshine PA-C [address] [facility] [facility] [address] [place], [place] [address] Physician Clinical Informatics Spec Urology 10/03/22 Radah Rivas Personal Advocate & Liaison (PAL) 11/26/22 Marielena Sunshine PA-C [address] [facility] 500 [place] [address] Assigned Surgical Provider 12/07/22 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 LICSW [address] [place] [address] Buncher Operator Buncher Operator - Clinical 06/23/23 documented as of this encounter
--- OUTSIDE RECORDS SUMMARY | 2023-07-07 10:29 | XMS_ITS | Encounter Summary ---
Author Name Unknown Organization [place] Address [address] [place] [address] Care Team Providers Care Necktie Centralizing Machine Operator Name Role Phone Navdeep Waldron MD Unavailable [phone] Shankar Peñaloza MD Primary Care Provider [phone] Shankar Peñaloza MD Unavailable [phone] Richardson Alberts PA-C Unavailable [phone] Shankar Peñaloza MD Unavailable [phone] Marielena Sunshine PA-C Unavailable Radha Rivas Unavailable Unavailable Marielena Sunshine PA-C Unavailable Reason for Visit * Reason Onset Date Comments Refill Request 06/17/2023 Encounter Details Date Type Department Care Team (Late st Contact Info) Description 06/17/2023 [facility] Keisha [address] [place] [address] Shankar Peñaloza MD [address] [place] [address] [place] [address] Refill Request Social History [...] Loyola NP - 06/18/2023 8:20 AM CST COMMUNITY AFFAIRS MANAGER reviewed Last filled dilaudid 05/16/23 #80 tabs Last filled fentanyl patch #10 patches 05/16/23 From problem list Medication(s): Fentanyl patch, Hydromorphone, Zolpidem. Maximum quantity per month: 10, 60, 30 Clinic visit frequency required: Q 6 months -of note, last several fills of dilaudid have been for #80 tabs Last visit with PCP 04/08/22 Has upcoming visit 07/16/23 OK to fill Capri Loyola APRN, FRUIT PRESS OPERATOR ING MANAGER documented in this encounter Plan of Treatment Upcoming Encounters Date Type Department Care Team (Late st Contact Info) Description 07/16/2023 3:30 PM WORKING MANAGER Office Visit [address] [place] [address] Shankar Peñaloza MD [address] [place] [address] [place] [address] 2023 3:00 PM WORKING MANAGER Virtual Visit [facility] [address] [place] [address] 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, [facility] [address] [place] [address] 08/13/2023 2:30 PM WORKING MANAGER Office Visit [facility] [address] [place] [address] [place] [address] [place] [address] documented as of this encounter Visit Diagnoses Diagnosis Fibromyalgia Mylagia and myositis, unspecified documented in this encounter Additional Health Concerns Assessment Noted Time PHQ-9 Depression Total Score: 21 024 4:47 PM WORKING MANAGER documented as of this encounter Care Teams Necktie Centralizing Machine Operator Relationship Specialty Start Date End Date Shankar Peñaloza MD [address] [place] [address] [place] [address] PCP - General Internal Medicine 09/25/13 Navdeep Waldron MD [facility] [address] [place] [address] Physical Medicine & Rehabilitation - Pain Medicine 07/07/13 Shankar Peñaloza MD [address] [facility] [place] [address] Assigned PCP 07/22/16 Richardson Alberts PA-C [address] [place] [address] Physician Hardboard Supervisor Gastroenterology 03/01/22 Shankar Peñaloza MD [address] [facility] [place] [address] Assigned Pain Medication Provider 06/17/22 Marielena Sunshine PA-C [address] [facility] [address] [place], [place] [address] Physician Hardboard Supervisor Urology 10/03/22 Radha Rivas Personal Advocate & Liaison (PAL) 11/26/22 Marielena Sunshine PA-C [address] [facility] [address] [place] [address] Assigned Surgical Provider 12/07/22 documented as of this encounter
--- OUTSIDE RECORDS SUMMARY | 2023-07-07 10:29 | XMS_ITS | Encounter Summary ---
Author Name Unknown Organization [place] Address [address] [place] [address]. [place] [address] Care Team Providers Care Publication Designer Name Role Phone Navdeep Waldron MD Unavailable [phone] Shankar Peñaloza MD Primary Care Provider Shankar Peñaloza MD Unavailable [phone] Richardson Alberts PA-C Unavailable [phone] Shankar Peñaloza MD Unavailable [phone] Marielena Sunshine PA-C Unavailable Radha Rivas Unavailable Unavailable Marielena Sunshine PA-C Unavailable Reason for Visit * Reason Comments Medication Refill Encounter Details Date Type Department Care Team (Late st Contact Info) Description 06/20/2023 [facility] [address] [place] [address] [place] [address] [place] [address] Medication Refill Social History Tobacco [...] 10:59 AM CST Has upcoming visit 07/16/23 ICIAN RELATIONS MANAGER documented in this encounter Plan of Treatment Upcoming Encounters Date Type Department Care Team (Late st Contact Info) Description 07/16/2023 3:30 PM PHYSICIAN RELATIONS MANAGER Office Visit [facility] Keisha [address] [place] [address] Shankar Peñaloza MD [address] [facility] [place] [address] 2023 3:00 PM PHYSICIAN RELATIONS MANAGER Virtual Visit [facility] [address] [place] [address] 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, [facility] [address] [place] [address] 08/13/2023 2:30 PM PHYSICIAN RELATIONS MANAGER Office Visit [facility] [address] [place] [address] [place] [address] [place] [address] documented as of this encounter Visit Diagnoses Diagnosis Severe episode of recurrent major depressive disorder, without psychotic features (H) documented in this encounter Additional Health Concerns Assessment Noted Time PHQ-9 Depression Total Score: 21 024 4:47 PM PHYSICIAN RELATIONS MANAGER documented as of this encounter Care Teams Publication Designer Relationship Specialty Start Date End Date Shankar Peñaloza MD [address] [place] [address] [place] [address] PCP - General Internal Medicine 09/25/13 Navdeep Waldron MD [facility] [address] [place] [address] Physical Medicine & Rehabilitation - Pain Medicine 07/07/13 Shankar Peñaloza MD [address] [place] [address] [place] [address] Assigned PCP 2/13/17 Richardson Alberts PA-C [address] [place] [address] Physician Cigarette Roller Gastroenterology 03/01/22 Shankar Peñaloza MD [address] [facility] [place] [address] Assigned Pain Medication Provider 06/17/22 Marielena Sunshine PA-C [address] [facility] 377 [place], [place] [address] Physician Cigarette Roller Urology 10/03/22 Radha Rivas Personal Advocate & Liaison (PAL) 11/26/22 Marielena Sunshine PA-C 6363 [facility] 500 [place], [place] [address] Assigned Surgical Provider 12/07/22 documented as of this encounter
--- OUTSIDE RECORDS SUMMARY | 2023-07-07 10:30 | XMS_ITS | Encounter Summary ---
Author Name Unknown Organization [place] Address [address] [place] [address] Care Team Providers Care Respiratory Physician Name Role Phone Navdeep Waldron MD Unavailable [phone] Sahnkar Peñaloza MD Primary Care Provider Shankar Peñaloza MD Unavailable [phone] Richardson Alberts PA-C Unavailable [phone] Shankar Peñaloza MD Unavailable [phone] Marielena Sunshine PA-C Unavailable [phone] Radha Rivas Unavailable Unavailable Marielena Sunshine PA-C Unavailable Encounter Details Date Type Department Care Team (Late st Contact Info) Description 05/27/2023 1:45 PM SOLAR SALES ADVISOR Lab [facility] [address] [place] [address] Antiphospholipid syndrome (H24) (Primary Dx); [...] st Contact Info) Description 07/16/2023 3:30 PM SOLAR SALES ADVISOR Office Visit [facility] Keisha [address] [place] [address] Shankar Peñaloza MD [address] [facility] [place] [id number] 2023 3:00 PM SOLAR SALES ADVISOR Virtual Visit [facility] [address] [place] [address] 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, COASTAL AND ESTUARY SPECIALIST [address] [place] [address] 08/13/2023 2:30 PM SOLAR SALES ADVISOR Office Visit [facility] [address] [place] [phone] [place] [address] [place] [address] documented as of this encounter Procedures Procedure Name Priority Date/Time Associated Diagnosis Comments FACTOR 10 CHROMOGENIC Routine 05/27/2023 1:46 PM SOLAR SALES ADVISOR Antiphospholipid syndrome (H24) BASIC METABOLIC PANEL Routine 05/27/2023 1:32 PM SOLAR SALES ADVISOR Benign essential hypertension documented in this encounter Results * (ABNORMAL) Factor 10 chromogenic (05/27/2023 1:46 PM SOLAR SALES ADVISOR) Factor 10 Chromogenic 44(L) 70 - 130 % 05/29/2023 8:32 AM SOLAR SALES ADVISOR [facility] Blood BLOOD SPECIMEN / Unknown Venipuncture / Unknown 05/27/2023 1:46 PM SOLAR SALES ADVISOR 05/27/2023 1:47 PM SOLAR SALES ADVISOR Narrative [facility] - 05/29/2023 8:32 AM SOLAR SALES ADVISOR Therapeutic Range: ??A Chromogenic Factor 10 level of approximately 20-40% inversely correlates with an INR of 2-3 for patients receiving Warfarin. Chromogenic Factor 10 levels below 20% indicate an INR greater than 3 and levels above 40% indicate an INR less than 2. Jose Moore MD LAB - BLOOD ORDERABL ES [facility] [address] [facility] [address], Room [address] [place] [address], [facility] [phone] * (ABNORMAL) Basic metabolic panel (Ca, Cl, CO2, Creat, Gluc, K, Na, BUN) (05/27/2023 1:32 PM SOLAR SALES ADVISOR) Sodium 138 135 - 145 mmol/L 05/27/2023 9:12 PM SOLAR SALES ADVISOR [facility] Comment:Reference intervals for this test were updated on 03/04/2023 to more accurately reflect our healthy population. There may be differences in the flagging of prior results with similar values performed with this method. Interpretation of those prior results can be made in the context of the updated reference intervals. Potassium 3.9 3.4 - 5.3 mmol/L 05/27/2023 9:12 PM SOLAR SALES ADVISOR [facility] Chloride 102 98 - 107 mmol/L 05/27/2023 9:12 PM SOLAR SALES ADVISOR [facility] Carbon Dioxide (CO2) 27 22 - 29 mmol/L 05/27/2023 9:12 PM SOLAR SALES ADVISOR [facility] Anion Gap 9 7 - 15 mmol/L 05/27/2023 9:12 PM SOLAR SALES ADVISOR [facility] Urea Nitrogen 23.9(H) 6.0 - 20.0 mg/dL 05/27/2023 9:12 PM SOLAR SALES ADVISOR [facility] Creatinine 0.87 0.51 - 0.95 mg/dL 05/27/2023 9:12 PM SOLAR SALES ADVISOR [facility] GFR Estimate 78 >60 mL/min/1. 73m2 05/27/2023 9:12 PM SOLAR SALES ADVISOR [facility] Calcium 9.4 8.6 - 10.0 mg/dL 05/27/2023 9:12 PM SOLAR SALES ADVISOR [facility] Glucose 101(H) 70 - 99 mg/dL 05/27/2023 9:12 PM SOLAR SALES ADVISOR [facility] Blood BLOOD SPECIMEN / Unknown Venipuncture / Unknown 05/27/2023 1:32 PM SOLAR SALES ADVISOR 05/27/2023 1:32 PM SOLAR SALES ADVISOR Koko Tracey MD LAB - BLOOD ORDERABL ES [facility] [address] [facility], [address] [place] [address], [facility] [phone] documented in this encounter Visit Diagnoses Diagnosis Antiphospholipid syndrome (H24)- Primary Primary hypercoagulable state Benign essential hypertension Essential hypertension, benign documented in this encounter Additional Health Concerns Assessment Noted Time PHQ-9 Depression Total Score: 19 023 10:41 AM CDT documented as of this encounter Care Teams Respiratory Physician Relationship Specialty Start Date End Date Shankar Peñaloza MD [address] [place] [address] [place] [address] PCP - General Internal Medicine 09/25/13 Navdeep Waldron MD [facility] [address] [place] [address] Physical Medicine & Rehabilitation - Pain Medicine 07/07/13 Shankar Peñaloza MD [address] [place] [address] [place] [address] Assigned PCP 07/22/16 Richardson Alberts PA-C [address] [place] [address] Physician Natural Gas Plant Supervisor Gastroenterology 03/01/22 Shankar Peñaloza MD [address] [place] [address] [place] [address] Assigned Pain Medication Provider 06/17/22 Marielena Sunshine PA-C [address] [facility] [address] [place] [address] Physician Natural Gas Plant Supervisor Urology 10/03/22 Radha Rivas Personal Advocate & Liaison (PAL) 11/26/22 Marielena Sunshine PA-C [address] [facility] [address] [place], [place] [address] Assigned Surgical Provider 12/07/22 documented as of this encounter
--- OUTSIDE RECORDS SUMMARY | 2023-07-07 10:30 | XMS_ITS | Encounter Summary ---
Author Name Unknown Organization [place] Address [address] [place] [address] Care Team Providers Care Human Machine Interface Engineer Name Role Phone Navdeep Waldron MD Unavailable + [phone] Shankar Peñaloza MD Primary Care Provider [phone] Shankar Peñaloza MD Unavailable [phone] Richardson Alberts PA-C Unavailable [phone] Shankar Peñaloza MD Unavailable [phone] Marielena Sunshine PA-C Unavailable Radha Rivas Unavailable Unavailable Marielena Sunshine PA-C Unavailable [phone] Encounter Details Date Type Department Care Team (Late st Contact Info) Description 05/14/2023 [facility] Medical Advice [facility] [address] [place] [address] Ann Vanessa, RN Severe episode [...] Janice Mccallum RN - 05/16/2023 2:32 PM MOTION GRAPHICS ARTIST Informed patient. Janice Mccallum RN ON GRAPHICS ARTIST * Telephone Encounter - Lucille Tracey MD - 05/16/2023 11:55 AM CST Ok, submitted e-visit. Please let patient know it can take up to 3 business days for a response. Thanks, Lucille Tracey MD [facility] 05/16/2023 ON GRAPHICS ARTIST * Telephone Encounter - Ann Vanessa, RN - 05/15/2023 3:28 PM CST Routed to Dr Lucille Tracey, please see and advise. See also 05/08/23 telephone encounter. Ann Vanessa RN, BSN [facility] ON GRAPHICS ARTIST * Addendum Note - Lucille Tracey MD - 05/14/2023 5:15 PM CSTAddended by: LUCILLE TRACEY on: 05/23/2023 06:20 AM Modules accepted: Orders ON GRAPHICS ARTIST documented in this encounter Plan of Treatment Upcoming Encounters Date Type Department Care Team (Late st Contact Info) Description 07/16/2023 3:30 PM MOTION GRAPHICS ARTIST Office Visit [address] [place] [address] Shankar Peñ[place] [address] [place] [address] [place] [address] 2023 3:00 PM MOTION GRAPHICS ARTIST Virtual Visit [facility] [address] [place] [address] 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, [address] [address] 08/13/2023 2:30 PM MOTION GRAPHICS ARTIST [facility] [address] [place] [phone] [place] [address] [place], [place] [phone] documented as of this encounter Visit Diagnoses Diagnosis Severe episode of recurrent major depressive disorder, without psychotic features (H)- Primary documented in this encounter Additional Health Concerns Assessment Noted Time PHQ-9 Depression Total Score: 19 023 10:41 AM CDT documented as of this encounter Care Teams Human Machine Interface Engineer Relationship Specialty Start Date End Date Shankar Peñaloza MD [address] [place] [address] [place] [address] PCP - General Internal Medicine 09/25/13 Navdeep Waldron MD [facility] [address] [place] [address] Physical Medicine & Rehabilitation - Pain Medicine 07/07/13 Shankar Peñaloza MD [address] [place] [address] [place] [address] Assigned PCP 07/22/16 Richardson Alberts PA-C [address] [place] [address] Physician Shuttle Fixer Gastroenterology 03/01/22 Shankar Peñaloza MD [address] [place] [address] [place] [address] Assigned Pain Medication Provider 06/17/22 Marielena Sunshine PA-C [address] [facility] 377 [place] [address] Physician Shuttle Fixer Urology 10/03/22 Radha Rivas Personal Advocate & Liaison (PAL) 11/26/22 Marielena Sunshine PA-C [address] [place] [address] Assigned Surgical Provider 12/07/22 documented as of this encounter
--- OUTSIDE RECORDS SUMMARY | 2023-07-07 10:30 | XMS_ITS | Encounter Summary ---
Author Name Unknown Organization [facility] Address [address] [place] [address] Care Team Providers Care Project Development Manager Name Role Phone Navdeep Waldron MD Unavailable [phone] Shankar Peñaloza MD Primary Care Provider [phone] Shankar Peñaloza MD Unavailable [phone] Richardson Alberts PA-C Unavailable [phone] Shankar Peñaloza MD Unavailable [phone] Marielena Sunshine PA-C Unavailable Radha Rivas [...] st Contact Info) Description 07/16/2023 3:30 PM MARINE OPERATIONS COORDINATOR Office Visit [facility] [address] [facility] [address] [place] [phone] Shankar Peñaloza MD [address] [place] [address] [place] [address] 2023 3:00 PM MARINE OPERATIONS COORDINATOR Virtual [facility] [address] [place] [address] 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, [place] [address] [place] [address] 08/13/2023 2:30 PM MARINE OPERATIONS COORDINATOR Office Visit [facility] [address] [place] [address] [place] [address] [place] [address] documented as of this encounter Visit Diagnoses Not on filedocumented in this encounter Additional Health Concerns Assessment Noted Time PHQ-9 Depression Total Score: 19 023 10:41 AM CDT documented as of this encounter Care Teams Project Development Manager Relationship Specialty Start Date End Date Shankar Peñaloza MD [address] [place] [address] [place] [address] PCP - General Internal Medicine 09/25/13 Navdeep Waldron MD [facility] [address] [place] [address] Physical Medicine & Rehabilitation - Pain Medicine 07/07/13 Shankar Peñaloza MD [address] [place] [address] [place] [address] Assigned PCP 07/22/16 Richardson Alberts PA-C [address] [place] [address] Physician Signal Constructor Gastroenterology 03/01/22 Shankar Peñaloza MD [address] [place] [address] [place] [address] Assigned Pain Medication Provider 06/17/22 Marielena Sunshine PA-C [address] [facility] 377 [place] [address] Physician Signal Constructor Urology 10/03/22 Radha Rivas Personal Advocate & Liaison (PAL) 11/26/22 Marielena Sunshine PA-C [address] [place] [address] Assigned Surgical Provider 12/07/22 documented as of this encounter
--- OUTSIDE RECORDS SUMMARY | 2023-07-07 10:30 | XMS_ITS | Encounter Summary ---
Author Name Unknown Organization [place] Address [address] [place] [address] Care Team Providers Care Chucking And Sawing Machine Operator Name Role Phone Navdeep Waldron MD Unavailable [phone] Shankar Peñaloza MD Primary Care Provider Shankar Peñaloza MD Unavailable [phone] Richardson Alberts PA-C Unavailable [phone] Shankar Peñaloza MD Unavailable [phone] Marielena Sunshine PA-C Unavailable [phone] Radha Rivas Unavailable Unavailable Marielena Sunshine PA-C Unavailable [phone] Reason for Visit * Reason Comments Cough Entered automaticall y based on patient selection in fitmobhart. Encounter Details Date Type Department Care Team (Late st Contact Info) Description 05/12/2023 8:15 AM WASTEWATER TREATMENT SUPERVISOR E-Visit [facility] [address] [place] [address] Ania Gomez APRN KENNEL HAND [address] [place] [address] [phone] Cough (Entered automatically based on christopher... Social [...] Instructions * Patient Instructions* Ania Gomez APRN KENNEL HAND - 05/12/2023 8:15 AM WASTEWATER TREATMENT SUPERVISOR Images from the original note were not [...] your congestion worse. If needed, take an fmdh-wxo-tgtppcv pain medicine, such as acetaminophen (Tylenol), ibuprofen (Advil, Motrin), or naproxen (Aleve). Read and follow all instructions on the label. If the doctor prescribed antibiotics, take them as directed. Do not stop taking them just because you feel better. You need to take the full course of antibiotics. Be careful when taking ozea-msi-fowvqty cold or flu medicines and Tylenol at [...] Where can you learn more? Go to https://[email or web address]/patiented Enter I933 in the search box to learn more about Acute Sinusitis: Care Instructions. Current as of: August 06, 2022?Content Version: 13.8 ?? [employer]. Care instructions adapted under license by your healthcare professional. If you have questions about a medical condition or this instruction, always ask your healthcare professional. [employer] disclaims any warranty or liability for your use of this information. You may want to try a nasal lavage (also known as nasal irrigation). You can find rrhu-ywm-qwliqgd products, such as Neti-Pot, at retail locations or make your own at home. Instructions for homemade nasal lavage and more information on the process are available online at http://www.aafp.org/afp/2008 /1115/p1121.html. EWATER TREATMENT SUPERVISOR documented in this encounter Miscellaneous Notes * Telephone Encounter - Ania Gomez APRN CNP - 05/12/2023 9:18 AM CST Provider E-Visit time total (minutes): 2 EWATER TREATMENT SUPERVISOR documented in this encounter Plan of Treatment Upcoming Encounters Date Type Department Care Team (Late st Contact Info) Description 07/16/2023 3:30 PM WASTEWATER TREATMENT SUPERVISOR Office Visit [facility] Ke[place] [address] [place] [address] Drive [address] [place] [address] Shankar Peñaloza MD [address] [place] [address] [place] [address] 2023 3:00 PM WASTEWATER TREATMENT SUPERVISOR Virtual Visit [facility] [address] [place] [address] 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 [address] [place] [address] 08/13/2023 2:30 PM WASTEWATER TREATMENT SUPERVISOR Office Visit [facility] [address] [place] [address] [place] [address] [place] [address] documented as of this encounter Visit Diagnoses Diagnosis Acute recurrent pansinusitis- Primary Other acute sinusitis documented in this encounter Additional Health Concerns Assessment Noted Time PHQ-9 Depression Total Score: 19 023 10:41 AM CDT documented as of this encounter Care Teams Chucking And Sawing Machine Operator Relationship Specialty Start Date End Date Shankar Peñaloza MD [address] [place] [address] [place] [address] PCP - General Internal Medicine 09/25/13 Navdeep Waldron MD [facility] [address] [place] [address] Physical Medicine & Rehabilitation - Pain Medicine 07/07/13 Shankar Peñ[place] [address] [place] [address] [place] [address] Assigned PCP 07/22/16 Richardson Alberts PA-C [address] [place] [address] Physician Fur Tinter Gastroenterology 03/01/22 Shankar Peñaloza MD [address] [place] [address] [place] [address] Assigned Pain Medication Provider 06/17/22 Marielena Sunshine PA-C [address] [address] Physician Fur Tinter Urology 10/03/22 Radha Rivas Personal Advocate & Liaison (PAL) 11/26/22 Marielena Sunshine PA-C [address] [facility] 500 [place], [place] 675635 Assigned Surgical Provider 12/07/22 documented as of this encounter
--- OUTSIDE RECORDS SUMMARY | 2023-07-07 10:30 | XMS_ITS | Encounter Summary ---
Author Name Unknown Organization [place] Address [address] [place] [address] Care Team Providers Care Studio Engineer Name Role Phone Navdeep Waldron MD Unavailable [phone] Shankar Peñaloza MD Primary Care Provider Shankar Peñaloza MD Unavailable [phone] Richardson Alberts PA-C Unavailable [phone] Shankar Peñaloza MD Unavailable [phone] Marielena Sunshine PA-C Unavailable Radha Rivas Unavailable Unavailable Marielena Sunshine PA-C Unavailable [phone] Reason for Visit * Reason Onset Date Comments Refill Request 05/20/2023 Encounter Details Date Type Department Care Team (Late st Contact Info) Description 05/20/2023 [facility] Keisha [address] [place] [address] Shankar Peñaloza MD [address] [place] [address] [place] [address] Refill Request Social History [...] st Contact Info) Description 07/16/2023 3:30 PM ENVIRONMENTAL PROGRAMS MANAGER Office Visit [facility] Keisha [address] [place] [phone] Shankar Peñaloza MD [address] [facility] [place] [address] 2023 3:00 PM ENVIRONMENTAL PROGRAMS MANAGER Virtual Visit [facility] [place] [address] [place] [address] 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, [facility] [address] [place] [address] 08/13/2023 2:30 PM ENVIRONMENTAL PROGRAMS MANAGER Office Visit [facility] [address] [place] [phone] [place] [address] [place] [address] documented as of this encounter Visit Diagnoses Diagnosis Primary insomnia Persistent disorder of initiating or maintaining sleep documented in this encounter Additional Health Concerns Assessment Noted Time PHQ-9 Depression Total Score: 19 023 10:41 AM CDT documented as of this encounter Care Teams Studio Engineer Relationship Specialty Start Date End Date Shankar Peñaloza MD [address] [place] [address] [place] [address] PCP - General Internal Medicine 09/25/13 Navdeep Waldron MD [facility] [address] [place] [address] Physical Medicine & Rehabilitation - Pain Medicine 07/07/13 Shankar Peñaloza MD [address] [place] [address] [place] [address] Assigned PCP 07/22/16 Richardson Alberts PA-C [address] [place] [address] Physician Bench Shear Operator Gastroenterology 03/01/22 Shankar Peñaloza MD [address] [facility] [address] Assigned Pain Medication Provider 06/17/22 Marielena Sunshine PA-C [address] [facility] [address] [place], [place] [address] Physician Bench Shear Operator Urology 10/03/22 Radha Rivas Personal Advocate & Liaison (PAL) 11/26/22 Marielena Sunshine PA-C [address] [facility] 500 [place], [place] 8737[address] Assigned Surgical Provider 12/07/22 documented as of this encounter
--- OUTSIDE RECORDS SUMMARY | 2023-07-07 10:30 | XMS_ITS | Encounter Summary ---
Author Name Unknown Organization [place] Address [address] [place] [address] Care Team Providers Care Slunk Skinner Name Role Phone Navdeep Waldron MD Unavailable [phone] Shankar Peñaloza MD Primary Care Provider [phone] Shankar Peñaloza MD Unavailable [phone] Richardson Alberts PA-C Unavailable [phone] Shankar Peñaloza MD Unavailable [phone] Marielena Sunshine PA-C Unavailable Radha Rivas Unavailable Unavailable Marielena Sunshine PA-C Unavailable Reason for Visit * Reason Comments Allied Health Visit Bp check Encounter Details Date Type Department Care Team (Latest Contact Info) Description 05/27/2023 1:30 PM FOUNTAIN OPERATOR Allied Health/Nurse Visit [address] [address] Allied Health Visit (Bp check [...] Comments Blood Pressure 121/82 05/27/2023 1:42 PM FOUNTAIN OPERATOR Pulse 86 05/27/2023 1:42 PM FOUNTAIN OPERATOR Temperature - - Respiratory Rate - [...] previously indicated by provider Shahrzad Lynch MA TAIN OPERATOR documented in this encounter Plan of Treatment Upcoming Encounters Date Type Department Care Team (Late st Contact Info) Description 07/16/2023 3:30 PM FOUNTAIN OPERATOR Office Visit [address] [place] [address] Shankar Peñaloza MD [address] [place] [address] [place] [address] 2023 3:00 PM FOUNTAIN OPERATOR Virtual Visit [facility] [address] [place] 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 [address] 08/13/2023 2:30 PM FOUNTAIN OPERATOR Office Visit [facility] [address] [place] [address] [place] [address] [place] [address] documented as of this encounter Visit Diagnoses Diagnosis Benign essential hypertension- Primary Essential hypertension, benign documented in this encounter Additional Health Concerns Assessment Noted Time PHQ-9 Depression Total Score: 19 023 10:41 AM CDT documented as of this encounter Care Teams Slunk Skinner Relationship Specialty Start Date End Date Shankar Peñaloza MD [address] [place] [address] [place] [address] PCP - General Internal Medicine 09/25/13 Navdeep Waldron MD [facility] [address] [place] [address] Physical Medicine & Rehabilitation - Pain Medicine 07/07/13 Shankar Peñaloza MD [address] [facility] [place] [address] Assigned PCP 07/22/16 Richardson Alberts PA-C [address] [place] [address] Physician Packaging Design Engineer Gastroenterology 03/01/22 Shankar Peñaloza MD 3305 [facility] [place] [address] Assigned Pain Medication Provider 06/17/22 Marielena Sunshine PA-C [address] [facility] [address] [place] [address] Physician Packaging Design Engineer Urology 10/03/22 Radha Rivas Personal Advocate & Liaison (PAL) 11/26/22 Marielena Sunshine PA-C 6363 [facility] 500 [place], [place] [address] Assigned Surgical Provider 12/07/22 documented as of this encounter
--- OUTSIDE RECORDS SUMMARY | 2023-07-07 10:30 | XMS_ITS | Encounter Summary ---
Author Name Unknown Organization [facility] Address [address] [place] [address]. [place] [address] Care Team Providers Care Pediatric Care Coordinator Name Role Phone Navdeep Waldron MD Unavailable [phone] Shankar Peñaloza MD Primary Care Provider [phone] Shankar Peñaloza MD Unavailable [phone] Richardson Alberts PA-C Unavailable [phone] Shankar Peñaloza MD Unavailable [phone] Marielena Sunshine PA-C Unavailable Radha Rivas Unavailable Unavailable Marielena Sunshine PA-C Unavailable Reason for Visit * Reason Comments Medication Refill Encounter Details Date Type Department Care Team (Late st Contact Info) Description [facility] [address] [place] [address] [place] [address] [place] [address] Medication Refill Social History Tobacco [...] PM CST Duplicate - prescription request refused. E MAKER documented in this encounter Plan of Treatment Upcoming Encounters Date Type Department Care Team (Late st Contact Info) Description 07/16/2023 3:30 PM CRATE MAKER Office Visit [facility] [place] [address] [place] [address] Shankar Peñaloza MD [address] [place] [address] [place] [address] 2023 3:00 PM CRATE MAKER Virtual Visit [facility] [address] [place] [address] 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, [facility] [address] [place] [address] 08/13/2023 2:30 PM CRATE MAKER Office Visit [facility] [address] [place] [address] [place] Tracey MD [address] [place] [address] documented as of this encounter Visit Diagnoses Diagnosis Benign essential hypertension Essential hypertension, benign documented in this encounter Additional Health Concerns Assessment Noted Time PHQ-9 Depression Total Score: 19 023 10:41 AM CDT documented as of this encounter Care Teams Pediatric Care Coordinator Relationship Specialty Start Date End Date Shankar Peñaloza MD [address] [place] [address] [place] [address] PCP - General Internal Medicine 09/25/13 Navdeep Waldron MD [facility] [address] [place] [address] Physical Medicine & Rehabilitation - Pain Medicine 07/07/13 Shankar Peñaloza MD [address] [place] [address] [place] [address] Assigned PCP 07/22/16 Richardson Alberts PA-C [address] [place] [address] Physician Screw Machine Hand Gastroenterology 03/01/22 Shankar Peñaloza MD [address] [facility] [place] [address] Assigned Pain Medication Provider 06/17/22 Marielena Sunshine PA-C [address] [facility] [address] [place], [place] [address] Physician Screw Machine Hand Urology 10/03/22 Radha Rivas Personal Advocate & Liaison (PAL) 11/26/22 Marielena Sunshine PA-C 6363 [facility] 500 [place] [address] Assigned Surgical Provider 12/07/22 documented as of this encounter
--- OUTSIDE RECORDS SUMMARY | 2023-07-07 10:30 | XMS_ITS | Encounter Summary ---
Author Name Unknown Organization [place] Address [address] [place] [address]. [place] [address] Care Team Providers Care Acid Maker Name Role Phone Navdeep Waldron MD Unavailable [phone] Shankar Peñaloza MD Primary Care Provider Shankar Peñaloza MD Unavailable [phone] Richardson Alberts PA-C Unavailable [phone] Shankar Peñaloza MD Unavailable [phone] Marielena Sunshine PA-C Unavailable Radha Rivas Unavailable Unavailable Marielena Sunshine PA-C Unavailable Reason for Visit * Reason Comments Medication Refill Encounter Details Date Type Department Care Team (Late st Contact Info) Description 05/08/2023 Telephone [facility] [address] [place] [address] [place] [address] [place] [address] Medication Refill Social History Tobacco [...] read by pt. Ann Vanessa RN, BSN [facility] T ROCK FINISHER * Telephone Encounter - Ann Vanessa RN - 05/14/2023 5:07 PM CST LMTCB #2, MC sent advising of below from Dr Koko Tracey. Ann Vanessa RN, BSN [facility] T ROCK FINISHER * Telephone Encounter - Nory Howard RN - 05/14/2023 10:15 AM SHEET ROCK FINISHER Called and left a message to call us back. T ROCK FINISHER * Telephone Encounter - Koko Tracey MD - 05/13/2023 3:53 PM CST Ok, that sounds good. Please ask her if she would like me to send the e-consult to psychiatry as discussed in office lasttime? I know we were going to await gene testing but if cannot find the records, we can still submit without that information. Koko Tracey MD [facility] 05/13/2023 T ROCK FINISHER * Telephone Encounter - Ann Vanessa RN - 05/13/2023 10:19 AM CST MC has not been read. Called pt and advised of below from Dr Koko Tracey. Scheduled nurse only BP andlab for 05/27/23. Pt has not been able to find paper copies of gene testing, pt will reach out to testing location [facility]. Pt requested depression follow up appt with Dr Koko Tracey. Scheduled VV on 06/11/22. Pt would also like to discuss meds for hot flashes. Ann Vanessa RN, BSN [facility] T ROCK FINISHER * Telephone Encounter - Nory Howard RN - 05/12/2023 4:37 PM SHEET ROCK FINISHER Called and left a message to call us back. Will also send a mychart per below. T ROCK FINISHER * Telephone Encounter - Koko Tracey MD - 05/12/2023 2:33 PM CST Can we please try calling patient back (and sending MyChart message if now answer) to let her know that she needs a repeat kidney function test (blood test) after restarting the hydrochlorothiazide? In meantime, ordered one additional 30 day supply to help bridge to lab appointment. Thanks. Koko Tracey MD [facility] 05/12/2023 T ROCK FINISHER * Telephone Encounter - Karyn Thapa RN - 05/09/2023 7:48 AM CST Called patient and left voicemail to call back and ask to speak to any triage nurse. Karyn Thapa RN T ROCK FINISHER * Telephone Encounter - Koko Tracey MD - 05/09/2023 6:46 AM CST Brief chart review. Overdue for repeat BP and BMP for refill of hydrochlorothiazide. Please help patient set up nurse only appointment, then will refill. Koko Tracey MD [facility] 05/09/2023 T ROCK FINISHER documented in this encounter Plan of Treatment Upcoming Encounters Date Type Department Care Team (Late st Contact Info) Description 07/16/2023 3:30 PM SHEET ROCK FINISHER Office Visit [facility] [place] [address] [place] [address] Shankar Peñaloza MD [address] [facility] [place] [phone] 2023 3:00 PM SHEET ROCK FINISHER Virtual Visit [facility] [place] [address] [place] [address] Gerhardsharikris Job, [facility] [address] [place] [address] 08/13/2023 2:30 PM SHEET ROCK FINISHER Office Visit [facility] [address] [place] [phone] [place] [address] [place], [place] [phone] documented as of this encounter Visit Diagnoses Diagnosis Benign essential hypertension Essential hypertension, benign documented in this encounter Additional Health Concerns Assessment Noted Time PHQ-9 Depression Total Score: 19 023 10:41 AM CDT documented as of this encounter Care Teams Acid Maker Relationship Specialty Start Date End Date Shankar Peñaloza MD [address] [place] [address] [place] [address] PCP - General Internal Medicine 09/25/13 Navdeep Waldron MD [facility] [address] [place] [address] Physical Medicine & Rehabilitation - Pain Medicine 07/07/13 Shankar Peñaloza MD [address] [place] [address] [place] [address] Assigned PCP 07/22/16 Richardson Alberts PA-C [address] [place] [address] Physician Trimmer Helper Gastroenterology 03/01/22 Shankar Peñaloza MD [address] [place] [address] [place] [address] Assigned Pain Medication Provider 06/17/22 Marielena Sunshine PA-C [address] [facility] [address] [place] [address] Physician Trimmer Helper Urology 10/03/22 Radha Rivas Personal Advocate & Liaison (PAL) 11/26/22 Marielena Sunshine PA-C [address] [facility] [facility] 500 [place] [address] Assigned Surgical Provider 12/07/22 documented as of this encounter
--- OUTSIDE RECORDS SUMMARY | 2023-07-07 10:30 | XMS_ITS | Encounter Summary ---
Author Name Unknown Organization [place] Address [address] [place] [address] Care Team Providers Care Crop Insurance Claims Adjuster Name Role Phone Navdeep Waldron MD Unavailable [phone] Shankar Peñaloza MD Primary Care Provider Shankar Peñaloza MD Unavailable [phone] Richardson Alberts PA-C Unavailable [phone] Shankar Peñaloza MD Unavailable [phone] Marielena Sunshine PA-C Unavailable Radha Rivas Unavailable Unavailable Marielena Sunshine PA-C Unavailable Reason for Visit * Reason Onset Date Comments Outreach 06/03/2023 Encounter Details Date Type Department Care Team (Late st Contact Info) Description 06/03/2023 [facility] [address] [place] [address] Radha Rivas Outreach Social History [...] 06/03/2023 2:52 PM CST Phq9 sent to [facility] TEST ENGINEER documented in this encounter Plan of Treatment Upcoming Encounters Date Type Department Care Team (Late st Contact Info) Description 07/16/2023 3:30 PM RF TEST ENGINEER Office Visit [address] [place] [address] Shankar Peñ[place] [address] [place] [address] [place] [address] 2023 3:00 PM RF TEST ENGINEER Virtual Visit [facility] [place] [address] [place] [address] 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, [facility] [address] [place], [place] [id number] 08/13/2023 2:30 PM RF TEST ENGINEER Office Visit [facility] [address] [place] [address] [place] [address] [place] [address] documented as of this encounter Visit Diagnoses Not on filedocumented in this encounter Additional Health Concerns Assessment Noted Time PHQ-9 Depression Total Score: 19 023 10:41 AM CDT documented as of this encounter Care Teams Crop Insurance Claims Adjuster Relationship Specialty Start Date End Date Shankar Peñaloza MD [address] [place] [address] [place] [address] PCP - General Internal Medicine 09/25/13 Navdeep Waldron MD [facility] [address] [place] [address] Physical Medicine & Rehabilitation - Pain Medicine 07/07/13 Shankar Peñaloza MD [address] [place] [address] [place] [address] Assigned PCP 07/22/16 Richardson Alberts PA-C [address] [place] [address] Physician Wholesale Loan Processor Gastroenterology 03/01/22 Shankar Peñaloza MD 3[address] [facility] [place] [address] Assigned Pain Medication Provider 06/17/22 Marielena Sunshine PA-C [address] [facility] [address] [place] [address] Physician Wholesale Loan Processor Urology 10/03/22 Radha Rivas Personal Advocate & Liaison (PAL) 11/26/22 Marielena Sunshine PA-C [address] [facility] 500 [place], [place] [address] Assigned Surgical Provider 12/07/22 documented as of this encounter
--- OUTSIDE RECORDS SUMMARY | 2023-07-07 10:30 | XMS_ITS | Encounter Summary ---
Author Name Unknown Organization [facility] Address [address] [place] [address] Care Team Providers Care Paramedic Supervisor Name Role Phone Navdeep Waldron MD Unavailable [phone] Shankar Peñaloza MD Primary Care Provider Shankar Peñaloza MD Unavailable [phone] Richardson Alberts PA-C Unavailable [phone] Shankar Peñaloza MD Unavailable [phone] Marielena Sunshine PA-C Unavailable Radha Rivas Unavailable Unavailable Marielena Sunshine PA-C Unavailable Reason for Visit * Reason Onset Date Comments Refill Request 05/14/2023 Encounter Details Date Type Department Care Team (Late st Contact Info) Description 05/14/2023 Marco Antonio Feliz [facility] Keisha [address] [place] [address] Shankar Peñaloza MD [address] [place] [address] [place] [address] Refill Request Social History [...] sent to pt to schedule w/ me. ATIONS DEVELOPER * Telephone Encounter - Koko Tracey MD [...] route medications appropriately. Thanks, [facility] ATIONS DEVELOPER * Telephone Encounter - Verenice Estes PA-C - 05/14/2023 4:06 PM CST Unsure why this is routed back to me. Call and discuss the message below with patient. Verenice Estes PA-C ATIONS DEVELOPER * Telephone Encounter - Verenice Estes PA-C - 05/14/2023 8:31 AM CST Is patient seeing Dr. Tracey for primary care? I see appts in Apr and now in Jun 2023. She has not seen Dr. Peñaloza in greater than one year. I can forward prescription requests to Dr. Tracey if this is the case. Verenice Estes PA-C ATIONS DEVELOPER documented in this encounter Plan of Treatment Upcoming Encounters Date Type Department Care Team (Late st Contact Info) Description 07/16/2023 3:30 PM OPERATIONS DEVELOPER Office Visit [facility] Keisha [address] [place] [address] Shankar Peñaloza MD [address] [place] [address] [place] [address] 2023 3:00 PM OPERATIONS DEVELOPER Virtual [facility] [place] [address] [place] [address] 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, [facility] [address] [place] [address] 08/13/2023 2:30 PM OPERATIONS DEVELOPER Office Visit [facility] [address] [place] [address] [place] [address] [place] [address] documented as of this encounter Visit Diagnoses Diagnosis Fibromyalgia Mylagia and myositis, unspecified documented in this encounter Additional Health Concerns Assessment Noted Time PHQ-9 Depression Total Score: 19 023 10:41 AM CDT documented as of this encounter Care Teams Paramedic Supervisor Relationship Specialty Start Date End Date Shankar Peñaloza MD [address] [place] [address] [place] [address] PCP - General Internal Medicine 09/25/13 Navdeep Waldron MD [facility] [address] [place] [address] Physical Medicine & Rehabilitation - Pain Medicine 07/07/13 Shankar Peñaloza MD [address] [place] [address] [place] [address] Assigned PCP 07/22/16 Richardson Alberts PA-C [address] [facility] [place] [address] Physician Army Officer Gastroenterology 03/01/22 Shankar Peñaloza MD [address] [address] Assigned Pain Medication Provider 06/17/22 Marielena Sunshine PA-C [address] [facility] [address] [place], [place] [address] Physician Army Officer Urology 10/03/22 Radha Rivas Personal Advocate & Liaison (PAL) 11/26/22 Marielena Sunshine PA-C [address] [facility] [address] [place], [place] [address] Assigned Surgical Provider 12/07/22 documented as of this encounter
--- OUTSIDE RECORDS SUMMARY | 2023-07-07 10:30 | XMS_ITS | Encounter Summary ---
Author Name Unknown Organization [facility] Address [address] [place] [address] Care Team Providers Care Shellfish Bed Worker Name Role Phone Navdeep Waldron MD Unavailable [phone] Shankar Peñaloza MD Primary Care Provider Shankar Peñaloza MD Unavailable [phone] Richardson Alberts PA-C Unavailable [phone] Shankar Peñaloza MD Unavailable [phone] Marielena Sunshine PA-C Unavailable [phone] Radha Rivas Unavailable Unavailable Marielena Sunshine PA-C Unavailable Encounter Details Date Type Department Care Team (Late st Contact Info) Description 05/12/2023 [facility] Medical Advice [facility] [address] [place] [address] Nory Howard, RN Social History Tobacco [...] st Contact Info) Description 07/16/2023 3:[address] MAN Office Visit [facility] Ke[place] [address] [place] [address] Shankar Peñaloza MD [address] [facility] [place] [address] [address] MAN Virtual Visit [facility] [address] [place] [phone] Job Jaramillo, ERP TECHNICAL LEAD [address] [place] [address] 08/13/2023 2:[address] MAN Office Visit [facility] [address] [place] [phone] [place] [address] [place] [address] documented as of this encounter Visit Diagnoses Not on filedocumented in this encounter Additional Health Concerns Assessment Noted Time PHQ-9 Depression Total Score: 19 023 10:41 AM CDT documented as of this encounter Care Teams Shellfish Bed Worker Relationship Specialty Start Date End Date Shankar Peñaloza MD [address] [place] [address] [place] [address] PCP - General Internal Medicine 09/25/13 Navdeep Waldron MD [facility] [address] [place] [address] Physical Medicine & Rehabilitation - Pain Medicine 07/07/13 Shankar Peñaloza MD [address] [place] [address] [place] [address] Assigned PCP 07/22/16 Richardson Alberts PA-C [address] [facility] [address] Physician Aircraft Engine Installer Gastroenterology 03/01/22 Shankar Peñaloza MD [address] [place] [address] [place] [address] Assigned Pain Medication Provider 06/17/22 Marielena Sunshine PA-C [address] [facility] [address] [place], [place] [address] Physician Aircraft Engine Installer Urology 10/03/22 Radha Rivas Personal Advocate & Liaison (PAL) 11/26/22 Marielena Sunshine PA-C [address] [facility] [address] [place] [address] Assigned Surgical Provider 12/07/22 documented as of this encounter
--- OUTSIDE RECORDS SUMMARY | 2023-07-07 10:30 | XMS_ITS | Encounter Summary ---
Author Name Unknown Organization [facility] Address [address] [place] [address] Care Team Providers Care Dog Or Animal Sitter Name Role Phone Navdeep Waldron MD Unavailable [phone] Shankar Peñaloza MD Primary Care Provider Shankar Peñaloza MD Unavailable [phone] Richardson Alberts PA-C Unavailable [phone] Shankar Peñaloza MD Unavailable [phone] Marielena Sunshine PA-C Unavailable [phone] Radha Rivas Unavailable Unavailable Marielena Sunshine PA-C Unavailable Reason for Referral * Consultation (Routine: Next available opening) - Pending Review Specialty Diagnoses / Procedures Referred By Arlet felton Referred To Contact Gastroenterology Diagnoses Globus sensation Nausea History of Jama's esophagus Ulises Orozco MD [facility] [address] [facility] [address] [address] [place] [address] Referral ID Status Reason Start Date Expiration Date V isits Requested Visits Authorized [id number] Pending Review 06/05/2023 06/04/2024 1 1 Question Answer Reason for Referral: Esophageal Disorders Scheduling Instructions: [facility] will call you to coordinate your care as prescribed by the provider. If you don? t hear from a sales promotion representative within 2 business days, please call . Comments Please be aware that coverage of these services is subject to the terms and limitations of your health insurance plan. Call member services at your health plan with any benefit or coverage questions. [facility] will call you to coordinate your care as prescribed by the provider. If you don? t hear from a sales promotion representative within 2 business days, please call . T THINNER Reason for Visit * Reason Comments Oral Swelling Palpitations Encounter Details Date Type Department Care Team (Late st Contact Info) Description 06/05/2023 4:33 PM FRUIT THINNER - 06/05/2023 6:04 PM FRUIT THINNER Emergency [facility] Emergency Dept [address] [place] [address] Ulises Orozco MD [facility] [address] [place] [address] Globus sensation; Nausea; History of Jama's esophagus; [...] Comments Blood Pressure 112/78 06/05/2023 6:04 PM FRUIT THINNER Pulse 70 06/05/2023 6:04 PM FRUIT THINNER Temperature 36.7 ??C (98 ??F) 06/05/2023 6:04 PM FRUIT THINNER Respiratory Rate 20 06/05/2023 6:04 PM FRUIT THINNER Oxygen Saturation 98% 06/05/2023 6:04 PM FRUIT THINNER Inhaled Oxygen Concentration - - Weight - - Height - - Body Mass Index - - documented in this encounter Discharge Instructions * Attachments The following attachments cannot be sent through Care Everywhere. * Nausea and Vomiting (Costa Rican) documented in this encounter Medications at Time of Discharge Medication Sig Dispensed Refills Start Date End Date clotrimazole-betametha sone (LOTRISONE) 1-0.05 % external creamIndications:Anal fissure Apply topically 2 times daily as needed (fissure) 30 g 1 04/16/2023 Fexofenadine HCl (PATIENCE PO) Take 180 mg by mouth daily as needed 0 hydrocortisone (WESTCORT) 0.2 % external creamIndications:[place] titis Apply sparingly to affected area three times daily as needed. 60 g 1 11/14/2020 ipratropium (ATROVENT) 0.06 % nasal sprayIndications:Acute recurrent pansinusitis [place]dez 2 sprays into both nostrils 4 times daily 15 mL 0 05/12/2023 ondansetron (ZOFRAN ODT) 4 MG ODT tabIndications:Nausea and vomiting in adult,Epigastric pain Take 1 tablet (4 mg) by mouth every 8 hours as needed for nausea 30 tablet 0 05/18/2022 senna (SENOKOT) 8.6 MG tablet Take 1 tablet by mouth every evening 0 triamcinolone (KENALOG) 0.1 % external creamIndications:[place] titis Apply topically 2 times daily 30 g 0 10/01/2022 warfarin ANTICOAGULANT (COUMADIN) 10 MG tablet Take by mouth See Admin Instructions Monitors Chromogenic Factor X via [facility] Alternates between 10 mg and 7.5 mg 0 zolpidem (AMBIEN) 5 MG tabletIndications:Prim dave insomnia Take 1 tablet (5 mg) by mouth every evening as needed for sleep 30 tablet 5 05/21/2023 LORazepam (ATIVAN) 1 MG tablet Take 1 tablet (1 mg) by mouth every 8 hours as needed for anxiety, vomiting or nausea 12 tablet 0 06/05/2023 06/25/2023 amoxicillin (AMOXIL) 875 MG tabletIndications:Bact erial sinusitis [...] severe pain 80 tablet 0 05/16/2023 06/17/2023 naloxone (NARCAN) 4 MG/0.1ML nasal sprayIndications:Fibro myalgia Valdez 1 spray (4 mg) into one nostril [...] swelling and intermittent palpitations. ABCs intact. A/Ox4. T THINNER * Ulises Orozco MD - 06/05/2023 11:05 [...] to prior, dated 01/21/23. Rate 69 bpm. ID interval 158 ms. QRS duration 86 ms. [...] was discharged to home. Impression & Plan [facility] Diagnoses: None Medical Decision Making: Patient is [...] ICD-10-CM 1. Globus sensation R09.A2 Adult GI Lead Systems Analyst Referral - Consult Only 2. Nausea R11.0 Adult GI Lead Systems Analyst Referral - Consult Only 3. History of Jama's esophagus Z87.19 Adult GI Lead Systems Analyst Referral - Consult Only 4. Anxiety F41.9 [...] Orozco MD White, Scott, MD 06/06/23 0011 T THINNER documented in this encounter Plan of Treatment Upcoming Encounters Date Type Department Care Team (Late st Contact Info) Description 07/16/2023 3:30 PM FRUIT THINNER [facility] [place] [address] Shankar Peñ[place] [address] [place] [address] [place] [address] 2023 3:00 PM FRUIT THINNER Virtual Visit [facility] [address] [place] [address] Job Jaramillo, [facility] [address] [place] [address] 08/13/2023 2:30 PM FRUIT THINNER Office Visit [facility] [address] [place] [phone] [place] [address] [place], [place] [phone] Scheduled Referrals Name Type Priority Associated Diagnoses Orde r Schedule Adult GI Lead Systems Analyst Referral - Consult Only Referral Routine: Next available opening Globus sensation Nausea History of Jama's esophagus Expected: 06/05/2023 (Approximate), Expires: 06/05/2024 documented as of this encounter Procedures Procedure Name Priority Date/Time Associated Diagnosis Comments EXTRA TUBE STAT 06/05/2023 12:34 PM FRUIT THINNER EXTRA RED TOP TUBE STAT 06/05/2023 12 :34 PM FRUIT THINNER EXTRA BLUE TOP TUBE STAT 06/05/2023 1 2:34 PM FRUIT THINNER CBC WITH PLATELETS AND DIFFERENTIAL STAT 06/05/2023 12:34 PM FRUIT THINNER TROPONIN T, HIGH SENSITIVITY STAT 06/05/2023 12:34 PM FRUIT THINNER CBC WITH PLATELETS & DIFFERENTIAL STAT 06/05/2023 12:34 PM FRUIT THINNER BASIC METABOLIC PANEL STAT 06/05/2023 12:34 PM FRUIT THINNER EKG 12-LEAD, TRACING ONLY STAT 06/05/2023 12:01 PM FRUIT THINNER documented in this encounter Results * Extra Red Top Tube (06/05/2023 12:34 PM FRUIT THINNER) Hold Specimen [facility] 06/05/2023 1:47 PM FRUIT THINNER [facility] LAB[facility] Blood STRUCTURE OF LEFT UPPER LIMB / Unknown Venipuncture / Unknown 06/05/2023 12:34 PM FRUIT THINNER 06/05/2023 12:46 PM FRUIT THINNER Ulises Orozco MD LAB - BLOOD ORDERABL ES [facility] Acute Care Lab [address] Lab (1st floor, no room number) [place] [address], [facility] [phone] * Extra Blue Top Tube (06/05/2023 12:34 PM FRUIT THINNER) Hold Specimen [facility] 06/05/2023 1:47 PM FRUIT THINNER [facility] Blood STRUCTURE OF LEFT UPPER LIMB / Unknown Venipuncture / Unknown 06/05/2023 12:34 PM FRUIT THINNER 06/05/2023 12:46 PM FRUIT THINNER Ulises Orozco MD LAB - BLOOD ORDERABL ES [facility] Acute Care Lab [address] Lab (1st floor, no room number) [place] [address], [facility] [phone] * CBC with platelets and differential (06/05/2023 12:34 PM FRUIT THINNER) [facility] WBC Count 7.9 4.0 - 11.0 10e3/uL 06/05/2023 12:50 PM FRUIT THINNER [facility] RBC Count 4.56 3.80 - 5.20 10e6/uL 06/05/2023 12:50 PM FRUIT THINNER [facility] Hemoglobin 13.2 11.7 - 15.7 g/dL 06/05/2023 12:50 PM FRUIT THINNER [facility] Hematocrit 40.2 35.0 - 47.0 % 06/05/2023 12:50 PM FRUIT THINNER [facility] MCV 88 78 - 100 fL 06/05/2023 12:50 PM FRUIT THINNER [facility] MCH 28.9 26.5 - 33.0 pg 06/05/2023 12:50 PM FRUIT THINNER [facility] MCHC 32.8 31.5 - 36.5 g/dL 06/05/2023 12:50 PM FRUIT THINNER [facility] RDW 12.5 10.0 - 15.0 % 06/05/2023 12:50 PM FRUIT THINNER [facility] Platelet Count 217 150 - 450 10e3/uL 06/05/2023 12:50 PM FRUIT THINNER [facility] % Neutrophils 86 % 06/05/2023 12:50 PM FRUIT THINNER [facility] % Lymphocytes 10 % 06/05/2023 12:50 PM FRUIT THINNER [facility] % Monocytes 3 % 06/05/2023 12:50 PM FRUIT THINNER [facility] % Eosinophils 1 % 06/05/2023 12:50 PM FRUIT THINNER [facility] % Basophils 0 % 06/05/2023 12:50 PM FRUIT THINNER [facility] % Immature Granulocytes 0 % 06/05/2023 12:50 PM FRUIT THINNER [facility] NRBCs per 100 WBC 0 <1 /100 023 12:50 PM FRUIT THINNER [facility] Absolute Neutrophils 6.8 1.6 - 8.3 10e3/uL 06/05/2023 12:50 PM FRUIT THINNER [facility] Absolute Lymphocytes 0.8 0.8 - 5.3 10e3/uL 06/05/2023 12:50 PM FRUIT THINNER [facility] Absolute Monocytes 0.3 0.0 - 1.3 10e3/uL 06/05/2023 12:50 PM FRUIT THINNER [facility] Absolute Eosinophils 0.1 0.0 - 0.7 10e3/uL 06/05/2023 12:50 PM FRUIT THINNER [facility] Absolute Basophils 0.0 0.0 - 0.2 10e3/uL 06/05/2023 12:50 PM FRUIT THINNER [facility] Absolute Immature Granulocytes 0.0 <=0.4 10e3/uL 06/05/2023 12:50 PM FRUIT THINNER [facility] Absolute NRBCs 0.0 10e3/uL 06/05/2023 12:50 PM FRUIT THINNER [facility] Blood STRUCTURE OF LEFT UPPER LIMB / Unknown Venipuncture / Unknown 06/05/2023 12:34 PM FRUIT THINNER 06/05/2023 12:46 PM FRUIT THINNER Ulises Orozco MD LAB - BLOOD ORDERABL ES LABORATORY [facility] Acute Care Lab [address] [facility] Lab (1st floor, no room number) [place] [address], [facility] [phone] * Troponin T, High Sensitivity (now) (06/05/2023 12:34 PM FRUIT THINNER) Troponin T, High Sensitivity 9 <=14 ng/L 06/05/2023 1:21 PM FRUIT THINNER [facility] Comment: Either a High Sensitivity [...] Unknown Venipuncture / Unknown 06/05/2023 12:34 PM FRUIT THINNER 06/05/2023 12:46 PM FRUIT THINNER Ulises Orozco MD LAB - BLOOD ORDERABL ES LABORATORY [facility] Acute Care Lab [address] Lab (1st floor, no room number) [place] [address], [facility] [phone] * (ABNORMAL) Basic metabolic panel (BMP) (06/05/2023 12:34 PM FRUIT THINNER) Sodium 139 135 - 145 mmol/L 06/05/2023 1:21 PM FRUIT THINNER LABORATORY Comment:Reference intervals for this test were updated on 03/04/2023 to more accurately reflect our healthy population. There may be differences in the flagging of prior results with similar values performed with this method. Interpretation of those prior results can be made in the context of the updated reference intervals. Potassium 3.9 3.4 - 5.3 mmol/L 06/05/2023 1:21 PM [facility] Chloride 102 98 - 107 mmol/L 06/05/2023 1:21 PM [facility] Carbon Dioxide (CO2) 24 22 - 29 mmol/L 06/05/2023 1:21 PM [facility] Anion Gap 13 7 - 15 mmol/L 06/05/2023 1:21 PM [facility] Urea Nitrogen 18.4 6.0 - 20.0 mg/dL 06/05/2023 1:21 PM [facility] Creatinine 0.97(H) 0.51 - 0.95 mg/dL 06/05/2023 1:21 PM [facility] GFR Estimate 68 >60 mL/min/1. 73m2 06/05/2023 1:21 PM [facility] Calcium 9.4 8.6 - 10.0 mg/dL 06/05/2023 1:21 PM [facility] Glucose 117(H) 70 - 99 mg/dL 06/05/2023 1:21 PM [facility] Blood STRUCTURE OF LEFT UPPER LIMB / Unknown Venipuncture / Unknown 06/05/2023 12:34 PM FRUIT THINNER 06/05/2023 12:46 PM FRUIT THINNER Ulises Orozco MD LAB - BLOOD ORDERABL ES LABORATORY [facility] Acute Care Lab [address] Lab (1st floor, no room number) [place] [address] [phone] * EKG 12-lead, tracing only (06/05/2023 12:01 PM FRUIT THINNER) Systolic Blood Pressure mmHg RADIOLOGY RESULTS Diastolic Blood Pressure mmHg RADIOLOGY RESULTS Ventricular Rate 69 BPM RAD IOLOGY RESULTS Atrial Rate 69 BPM RADIOLOG Y RESULTS ID Interval 158 ms RADIOLOG Y RESULTS QRS Duration 86 ms RADIOLO GY RESULTS QT 428 ms RADIOLOGY RESULTS QTc 458 ms RADIOLOGY RESULTS P [place] 82 degrees RADIOLOGY RESULTS R AXIS 77 degrees RADIOLOGY RESULTS T [place] 59 degrees RADIOLOGY RESULTS Interpretation ECG Sinus rhythm Normal ECG When compared with ECG of 26-APR-2019 10:02, No significant change was found Unconfirmed report - interpretation of this ECG is computer generated - see medical record for final interpretation Confirmed by - EMERGENCY ROOM, PHYSICIAN ([id number]), web editor [employer] ([id number]) on 06/05/2023 12:08:34 PM RADIOLOGY RESULTS 06/05/2023 12:0 1 PM FRUIT THINNER 06/05/2023 12:08 PM FRUIT THINNER Ulises Orozco MD ECG ORDERABLES RADIOLOGY RESULTS [...] For 1 dose $Given 06/05/2023 6:00 PM FRUIT THINNER 1 mg documented in this encounter Active and Recently Administered Medications Times are shown in FRUIT THINNER. Scheduled Medication Order 06/03/2023 06/04/2023 06/05/2023 LORazepam (ATIVAN) tablet 1 mg (COMPLETED) 1 mg, Oral, ONCE, On Alexus 06/05/23 at 1755, For 1 dose 1800 ($Given - Provi lynn: Faustino Santamaria RN) documented in this encounter Additional Health Concerns Assessment Noted Time PHQ-9 Depression Total Score: 19 023 10:41 AM CDT documented as of this encounter Care Teams Dog Or Animal Sitter Relationship Specialty Start Date End Date Shankar Peñaloza MD [address] [facility] [place] [address] PCP - General Internal Medicine 09/25/13 Navdeep Waldron MD [facility] [address] [place] [address] Physical Medicine & Rehabilitation - Pain Medicine 07/07/13 Shankar Peñaloza MD [facility] [facility] [place] [address] Assigned PCP 07/22/16 Richardson Alberts PA-C [address] [facility] [address] Physician Event Coordinator Gastroenterology 03/01/22 Shankar Peñaloza MD [address] [facility] [place] [address] Assigned Pain Medication Provider 06/17/22 Marielena Sunshine PA-C [address] [facility] [address] [place], [place] [address] Physician Event Coordinator Urology 10/03/22 Radha Rivas Personal Advocate & Liaison (PAL) 11/26/22 Marielena Sunshine PA-C [address] [place] [address] Assigned Surgical Provider 12/07/22 documented as of this encounter
--- OUTSIDE RECORDS SUMMARY | 2023-07-07 10:30 | XMS_ITS | Encounter Summary ---
Author Name Unknown Organization [place] Address [address] [facility] [place] [address] Care Team Providers Care Customer Supply Coordinator Name Role Phone Navdeep Waldron MD Unavailable [phone] Shankar Peñaloza MD Primary Care Provider Shankar Peñaloza MD Unavailable [phone] Richardson Alberts PA-C Unavailable [phone] Shankar Peñaloza MD Unavailable [phone] Marielena Sunshine PA-C Unavailable [phone] Radha Rivas Unavailable Unavailable Marielena Sunshine PA-C Unavailable Encounter Details Date Type Department Care Team (Late st Contact Info) Description 05/30/2023 Medical Correspondence [facility] [address] [place] [address] Outside, Provider Social History Tobacco [...] st Contact Info) Description 07/16/2023 3:30 PM COUNTY COMMISSIONER Office Visit [facility] [place] [address] [place] [address] Shankar Peñaloza MD [address] [facility] [place] [id number] 2023 3:00 PM COUNTY COMMISSIONER Virtual Visit [facility] Mental Health and Addiction [place] [address] [place] [phone] Job Jaramillo LICSW [address] [place] [address] 08/13/2023 2:30 PM COUNTY COMMISSIONER Office [facility] [address] [place] [address] [place] [address] [place] [address] documented as of this encounter Visit Diagnoses Not on filedocumented in this encounter Additional Health Concerns Assessment Noted Time PHQ-9 Depression Total Score: 19 023 10:41 AM CDT documented as of this encounter Care Teams Customer Supply Coordinator Relationship Specialty Start Date End Date Shankar Peñaloza MD [address] [place] [address] [place] [address] PCP - General Internal Medicine 09/25/13 Navdeep Waldron MD [facility] [address] [place] [address] Physical Medicine & Rehabilitation - Pain Medicine 07/07/13 Shankar Peñaloza MD [address] [place] [address] [place] [address] Assigned PCP 07/22/16 Richardson Alberts PA-C [address] [place] [address] Physician Coordinator Mining Products Gastroenterology 03/01/22 Shankar Peñaloza MD [address] [place] [address] [place] [address] Assigned Pain Medication Provider 06/17/22 Marielena Sunshine PA-C [address] [place], [place] [address] Physician Coordinator Mining Products Urology 10/03/22 Radha Rivas Personal Advocate & Liaison (PAL) 11/26/22 Marielena Sunshine PA-C [address] [facility] [address] [place] [address] Assigned Surgical Provider 12/07/22 documented as of this encounter
--- OUTSIDE RECORDS SUMMARY | 2023-07-07 10:31 | XMS_ITS | Encounter Summary ---
Author Name Unknown Organization [place] Address [address] [place] [address] Care Team Providers Care Recreation Attendant Name Role Phone Navdeep Waldron MD Unavailable [phone]- [phone] Shankar Peñaloza MD Primary Care Provider [phone] Shankar Peñaloza MD Unavailable [phone] Richardson Alberts PA-C Unavailable [phone] Shankar Peñaloza MD Unavailable [phone] Marielena Sunshine PA-C Unavailable Radha Rivas [...] st Contact Info) Description 07/16/2023 3:30 PM GALVANIZING POT RUNNER Office Visit [facility] [place] [address] [place] [address] Shankar Peñaloza MD [address] [facility] [place] [id number] 2023 3:00 PM GALVANIZING POT RUNNER Virtual Visit [facility] Mental Health and Addiction Clinic [address] [place] [address] Job Jaramillo, CLOTH EXAMINER MACHINE [address] [place], [place] [id number] 08/13/2023 2:30 PM GALVANIZING POT RUNNER Office Visit [facility] [address] [place] [phone] [place] [address] [place], [place] [phone] documented as of this encounter Visit Diagnoses Not on filedocumented in this encounter Additional Health Concerns Assessment Noted Time PHQ-9 Depression Total Score: 19 023 10:41 AM CDT documented as of this encounter Care Teams Recreation Attendant Relationship Specialty Start Date End Date Shankar Peñaloza MD [address] [place] [address] [place] [address] PCP - General Internal Medicine 09/25/13 Navdeep Waldron MD [facility] [address] [place] [address] Physical Medicine & Rehabilitation - Pain Medicine 07/07/13 Shankar Peñaloza MD [address] [place] [address] [place] [address] Assigned PCP 07/22/16 Richardson Alberts PA-C [address] [place] [address] Physician Communication Specialist Gastroenterology 03/01/22 Shankar Peñaloza MD [address] [place] [address] [place] [address] Assigned Pain Medication Provider 06/17/22 Marielena Sunshine PA-C [address] [facility] [address] [place] [address] Physician Communication Specialist Urology 10/03/22 Radha Rivas Personal Advocate & Liaison (PAL) 11/26/22 Marielena Sunshine PA-C [address] [facility] 500 [place], [place] [address] Assigned Surgical Provider 12/07/22 documented as of this encounter
--- OUTSIDE RECORDS SUMMARY | 2023-07-07 10:31 | XMS_ITS | Encounter Summary ---
Author Name Unknown Organization [place] Address [address] [place] [address] Care Team Providers Care Correctional Officer Name Role Phone Navdeep Waldron MD Unavailable [phone] Shankar Peñaloza MD Primary Care Provider [phone] Shankar Peñaloza MD Unavailable [phone] Richardson Alberts PA-C Unavailable [phone] Shankar Peñaloza MD Unavailable [phone] Marielena Sunshine PA-C Unavailable Radha Rivas Unavailable Unavailable Marielena Sunshine PA-C Unavailable Reason for Visit * Reason Onset Date Comments Refill Request 04/13/2023 Encounter Details Date Type Department Care Team (Late st Contact Info) Description 04/13/2023 Marco Antonio Feliz [facility] [place] [address] [place] [address] Shankar Peñaloza MD [address] [place] [address] [place] [address] Refill Request Social History [...] st Contact Info) Description 07/16/2023 3:30 PM ASPHALT HEATER OPERATOR Office Visit [facility] [place] [address] [place] [phone] Shankar Peñaloza MD [address] [facility] [place] [address] 2023 3:00 PM ASPHALT HEATER OPERATOR Virtual Visit [facility] Mental Health and Addiction Clinic [place] [address] [place] [address] Job Jaramillo, [facility] [address] [place] [address] 08/13/2023 2:30 PM ASPHALT HEATER OPERATOR Office Visit [facility] [address] [place] [phone] [place] [address] [place], [place] [phone] documented as of this encounter Visit Diagnoses Diagnosis Anal fissure Fibromyalgia Mylagia and myositis, unspecified documented in this encounter Additional Health Concerns Assessment Noted Time PHQ-9 Depression Total Score: 19 023 10:41 AM CDT documented as of this encounter Care Teams Correctional Officer Relationship Specialty Start Date End Date Shankar Peñaloza MD [address] [place] [address] [place] [address] PCP - General Internal Medicine 09/25/13 Navdeep Waldron MD [facility] [address] [place] [address] Physical Medicine & Rehabilitation - Pain Medicine 07/07/13 Shankar Peñaloza MD [address] [place] [address] [place] [address] Assigned PCP 07/22/16 Richardson Alberts PA-C [address] [facility] [place] [place] [address] Physician Fire Fighting Equipment Specialist Gastroenterology 03/01/22 Shankar Peñaloza MD [address] [facility] [place] [address] Assigned Pain Medication Provider 06/17/22 Marielena Sunshine PA-C [address] [facility] [address] [place], [place] [address] Physician Fire Fighting Equipment Specialist Urology 10/03/22 Radha Rivas Personal Advocate & Liaison (PAL) 11/26/22 Marielena Sunshine PA-C [address] [facility] 500 [place] [address] Assigned Surgical Provider 12/07/22 documented as of this encounter
--- OUTSIDE RECORDS SUMMARY | 2023-07-07 10:31 | XMS_ITS | Encounter Summary ---
Author Name Unknown Organization [place] Address [address] [place] [address] Care Team Providers Care Hotel Reservation Agent Name Role Phone Navdeep Waldron MD Unavailable [phone]- [phone] Shankar Peñaloza MD Primary Care Provider [phone] Shankar Peñaloza MD Unavailable [phone] Richardson Alberts PA-C Unavailable [phone] Shankar Peñaloza MD Unavailable [phone] Marielena Sunshine PA-C Unavailable Radha Rivas Unavailable Unavailable Marielena Sunshine PA-C Unavailable [phone] Encounter Details Date Type Department Care Team [...] st Contact Info) Description 07/16/2023 3:30 PM VIDEO SPECIALIST [facility] [address] [place] [phone] Shankar Peñaloza MD [address] [place] [address] [place] [address] 2023 3:00 PM VIDEO SPECIALIST Virtual [facility] Mental Health and Addiction Clinic [address] [place] [address] Job Jaramillo, [place] [address] [place] [address] 08/13/2023 2:30 PM VIDEO SPECIALIST Office Visit [facility] [address] [place] [address] [place] [address] [place] [address] documented as of this encounter Visit Diagnoses Not on filedocumented in this encounter Additional Health Concerns Assessment Noted Time PHQ-9 Depression Total Score: 19 023 10:41 AM CDT documented as of this encounter Care Teams Hotel Reservation Agent Relationship Specialty Start Date End Date Shankar Peñaloza MD [address] [place] [address] [place] [address] PCP - General Internal Medicine 09/25/13 Navdeep Waldron MD [facility] [address] [place] [address] Physical Medicine & Rehabilitation - Pain Medicine 07/07/13 Shankar Peñaloza MD [address] [place] [address] [place] [address] Assigned PCP 07/22/16 Richardson Alberts PA-C [address] [place] [address] Physician Audit Partner Gastroenterology 03/01/22 Shankar Peñaloza MD [address] [place] [address] [place] [address] Assigned Pain Medication Provider 06/17/22 Marielena Sunshine PA-C [address] [facility] 377 [place] [address] Physician Audit Partner Urology 10/03/22 Radha Rivas Personal Advocate & Liaison (PAL) 11/26/22 Marielena Sunshine PA-C [address] [place] [address] Assigned Surgical Provider 12/07/22 documented as of this encounter
--- OUTSIDE RECORDS SUMMARY | 2023-07-07 10:31 | XMS_ITS | Encounter Summary ---
Author Name Unknown Organization [place] Address [address] [place] [address]. [place] [address] Care Team Providers Care Ordnance Technician Name Role Phone Navdeep Waldron MD Unavailable [phone] Shankar Peñaloza MD Primary Care Provider Shankar Peñaloza MD Unavailable [phone] Richardson Alberts PA-C Unavailable [phone] Shankar Peñaloza MD Unavailable [phone] Marielena Sunshine PA-C Unavailable [phone] Radha Rivas Unavailable Unavailable Marielena Sunshine PA-C Unavailable [phone] Job Jaramillo Unavailable Encounter Details Date Type Department Care Team (Late st Contact Info) Description 03/27/2023 [facility] [place] [id number] [place] [address] [place] [address] [place] [address] Social History Tobacco Use Types [...] her know. Thank you, Koko Tracey MD [facility] 03/27/2023 documented in this encounter Plan of Treatment Upcoming Encounters Date Type Department Care Team (Late st Contact Info) Description 07/16/2023 3:30 PM ROLFER Office Visit [address] [place] [address] Shankar Peñaloza MD [address] [place] [address] [place] [address] 2023 3:00 PM ROLFER Virtual Visit [facility] Mental Health and Addiction Clinic [address] [place] [address] Job Jaramillo, [address] [address] 08/13/2023 2:30 PM ROLFER Office Visit [facility] [address] [place] [phone] [place] [address] [place], [place] [address] documented as of this encounter Visit Diagnoses Not on filedocumented in this encounter Additional Health Concerns Assessment Noted Time PHQ-9 Depression Total Score: 19 023 10:41 AM CDT documented as of this encounter Care Teams Ordnance Technician Relationship Specialty Start Date End Date Shankar Peñaloza MD [address] [place] [address] [place] [address] PCP - General Internal Medicine 09/25/13 Navdeep Waldron MD [facility] [address] [place] [address] Physical Medicine & Rehabilitation - Pain Medicine 07/07/13 Shankar Peñaloza MD [address] [place] [address] [place] [address] Assigned PCP 07/22/16 Richardson Alberts PA-C [address] [place] [address] Physician Sight Mounter Gastroenterology 03/01/22 Shankar Peñaloza MD [address] [place] [address] [place] [address] Assigned Pain Medication Provider 06/17/22 Marielena Sunshine PA-C [address] [facility] [address] [place], [place] 2[address] Physician Sight Mounter Urology 10/03/22 Radha Rivas Personal Advocate & Liaison (PAL) 11/26/22 Marielena Sunshine PA-C [address] [facility] [address] [place], [place] [address] Assigned Surgical Provider 12/07/22 Job Jaramillo LICSW [address] [place] [address] [facility] 06/23/23 documented as of this encounter
--- OUTSIDE RECORDS SUMMARY | 2023-07-07 10:31 | XMS_ITS | Encounter Summary ---
Author Name Unknown Organization [place] Address [address] [place] [address] Care Team Providers Care Tire Technician Name Role Phone Navdeep Waldron MD Unavailable [phone] Shankar Peñaloza MD Primary Care Provider Shankar Peñaloza MD Unavailable [phone] Richardson Alberts PA-C Unavailable [phone] Shankar Peñaloza MD Unavailable [phone] Marielena Sunshine PA-C Unavailable Radha Rivas Unavailable Unavailable Marielena Sunshine PA-C Unavailable Reason for Visit * Reason Comments Headache Encounter Details Date Type Department Care Team (Late st Contact Info) Description 04/11/2023 1:25 PM CDT - 04/11/2023 3:19 PM CDT [facility] Emergency Dept [address] [place] [address] Marco Charles MD [facility] [address] [place], [place] [id number] Nonintractable headache, unspecified chronicity pattern, unspecified headache [...] needed 0 hydrocortisone (WESTCORT) 0.2 % external creamIndications:Maskell titis Apply sparingly to affected area three times daily as needed. 60 g 1 11/14/2020 ondansetron (ZOFRAN ODT) 4 MG ODT tabIndications:Nausea and vomiting in adult,Epigastric pain Take 1 tablet (4 mg) by mouth every 8 hours as needed for nausea 30 tablet 0 05/18/2022 senna (SENOKOT) 8.6 MG tablet Take 1 tablet by mouth every evening 0 triamcinolone (KENALOG) 0.1 % external creamIndications:Maskell titis Apply topically 2 times daily 30 g 0 10/01/2022 warfarin ANTICOAGULANT (COUMADIN) 10 MG tablet Take by mouth See Admin Instructions Monitors Chromogenic Factor X via [facility] Alternates between 10 mg and 7.5 mg 0 prochlorperazine (COMPAZINE) 10 MG tablet Take 1 tablet (10 mg) by mouth every 6 hours as needed for nausea or vomiting 20 tablet 0 04/11/2023 06/25/2023 amoxicillin (AMOXIL) 875 MG tabletIndications:Bact erial [...] naloxone (NARCAN) 4 MG/0.1ML nasal sprayIndications:Fibro myalgia [place] 1 spray (4 mg) into one nostril alternating nostrils as needed for opioid reversal every 2-3 minutes until assistance arrives 0.2 mL 1 10/07/2019 06/25/2023 pantoprazole (PROTONIX) 40 MG EC tabletIndications:Fernandez ett's esophagus without dysplasia TAKE 1 TABLET(40 MG) BY MOUTH DAILY 90 tablet 0 03/21/2023 06/25/2023 prochlorperazine (COMPAZINE) 10 MG tabletIndications:Infe ction [...] No medications on file Scribe Disclosure: I, Darya Posadas, am serving as a scribe at 2:06 PM on 04/11/2023 to document services personally performed by Marco Charles MD based on my observations and the provider's statements pamela. Marco Charles MD 04/11/231954 documented in this encounter Plan of Treatment Upcoming Encounters Date Type Department Care Team (Late st Contact Info) Description 07/16/2023 3:30 PM TILE EDGER Office Visit [place] [address] [place] [address] Shankar Peñaloza MD [address] [facility] [place] [address] 2023 3:00 PM TILE EDGER Virtual Visit [facility] Mental Health and Addiction Clinic [address] [place] [address] [address] 08/13/2023 2:30 PM TILE EDGER Office Visit [facility] [address] [place] [phone] [place] [address] [place], [place] [phone] documented as of this encounter Procedures Procedure [...] further characterization. YASMINE LAWSON MD SYSTEM ID: [id number] Narrative 04/11/2023 3:[address] OF [...] further characterization. YASMINE LAWSON MD SYSTEM ID: [id number] Marco Charles MD IMG CT ORDERABLES * Extra Red Top Tube (04/11/2023 1:52 PM CDT) Pathologist [facility] Hold Specimen [facility] 04/11/2023 3:01 PM CDT LABORATORY Blood BLOOD SPECIMEN / Unknown Venipuncture / Unknown 04/11/2023 1:52 PM CDT 04/11/2023 1:59 PM CDT Marco Charles MD LAB - BLOOD ORDER [facility] [address] [facility] Lab (1st floor, no room number) [place] [address], [place] [phone] * CBC with platelets and differential (04/11/2023 [...] MD LAB - BLOOD ORDER [facility]ORAT[facility] [address] Lab (1st floor, no room number) [place] [address], [place] [phone] * (ABNORMAL) INR (04/11/2023 1:52 PM CDT) INR 1.62(H) 0.85 - 1.15 04/11/2023 2:09 PM CDT [facility] LABORATORY Blood BLOOD SPECIMEN / Unknown Venipuncture / Unknown 04/11/2023 1:52 PM CDT 04/11/2023 1:59 PM CDT Marco Charles MD LAB - BLOOD ORDER [facility] LABORATORY [facility] Care Lab [address] Lab (1st floor, no room number) [place] [address], [place] [phone] * (ABNORMAL) Basic metabolic panel (04/11/2023 1:52 [...] Charles MD LAB - BLOOD ORDER [facility] Acute Care Lab [address] Lab (1st floor, no room number) [place] [address], [place] [phone] documented in this encounter Visit Diagnoses Diagnosis [...] documented as of this encounter Care Teams Tire Technician Relationship Specialty Start Date End Date Shankar Peñaloza MD [address] [place] [address] [place] [address] PCP - General Internal Medicine 09/25/13 Navdeep Waldron MD [facility] [address] [place] [address] Physical Medicine & Rehabilitation - Pain Medicine 07/07/13 Shankar Peñaloza MD [address] [place] [address] [place] [address] Assigned PCP 07/22/16 Richardson Alberts PA-C [address] [place] [address] Physician Superintendent Landfill Operations Gastroenterology 03/01/22 Shankar Peñaloza MD [address] [facility] [place] [address] Assigned Pain Medication Provider 06/17/22 Marielena Sunshine PA-C [address] [facility] [address] [place], [place] [address] Physician Superintendent Landfill Operations Urology 10/03/22 Radha Rivas Personal Advocate & Liaison (PAL) 11/26/22 Marielena Sunshine PA-C [address] [facility] 500 [place], [place] [address] Assigned Surgical Provider 12/07/22 documented as of this encounter
--- OUTSIDE RECORDS SUMMARY | 2023-07-07 10:31 | XMS_ITS | Encounter Summary ---
Author Name Unknown Organization [place] Address [address] [place] [address]. [place] [address] Care Team Providers Care Steward Dishwasher Name Role Phone Navdeep Waldron MD Unavailable [phone] Shankar Peñaloza MD Primary Care Provider [phone] Shankar Peñaloza MD Unavailable [phone] Richardson Alberts PA-C Unavailable [phone] Shankar Peñaloza MD Unavailable [phone] Marielena Sunshine PA-C Unavailable [phone] Radha Rivas Unavailable Unavailable Marielena Sunshine PA-C Unavailable Job Jaramillo [facility] Unavailable [phone] Encounter Details Date Type Department Care Team (Late st Contact Info) Description 03/18/2023 Marco Antonio Feliz [facility] Gastroenterology Clinic [address] [address] Ralph Garcia Social History Tobacco [...] st Contact Info) Description 07/16/2023 3:30 PM PHOTOENGRAVER APPRENTICE Office Visit [facility] [place] [address] [place] [address] Shankar Peñ[place]za [place] [address] [place] [address] [place] [address] 2023 3:00 PM PHOTOENGRAVER APPRENTICE Virtual Visit [facility] [place] [address] [place] [address] Job Jaramillo, DRAFTER CASTINGS [address] [place] [address] 08/13/2023 2:30 PM PHOTOENGRAVER APPRENTICE Office Visit [facility] [address] [place] [address] [place] [address] [place] [address] documented as of this encounter Visit Diagnoses Not on filedocumented in this encounter Additional Health Concerns Assessment Noted Time PHQ-9 Depression Total Score: 19 023 10:41 AM CDT documented as of this encounter Care Teams Steward Dishwasher Relationship Specialty Start Date End Date Shankar Peñaloza MD [address] [facility] [place] [address] PCP - General Internal Medicine 09/25/13 Navdeep Waldron MD COURAGE [facility] [address] [place] [address] Physical Medicine & Rehabilitation - Pain Medicine 07/07/13 Shankar Peñaloza MD [address] [facility] [place] [address] Assigned PCP 07/22/16 Richardson Alberts PA-C [address] [place] [address] Physician Drum Stock Clerk Gastroenterology 03/01/22 Shankar Peñaloza MD [address] [place] [address] Assigned Pain Medication Provider 06/17/22 Marielena Sunshine PA-C [address] [facility] 377 [place], [place] [address] Physician Drum Stock Clerk Urology 10/03/22 Radha Rivas Personal Advocate & Liaison (PAL) 11/26/22 Marielena Sunshine PA-C [address] [facility] 500 [place], [place] [address] Assigned Surgical Provider 12/07/22 Job Jaramillo LICSW [address] [place] [address] Outdoor Education Teacher Outdoor Education Teacher - Clinical 06/23/23 documented as of this encounter
--- OUTSIDE RECORDS SUMMARY | 2023-07-07 10:31 | XMS_ITS | Encounter Summary ---
Author Name Unknown Organization [facility] Address [address] [place] [address]. [place] [address] Care Team Providers Care Service Center Coordinator Name Role Phone Navdeep Waldron MD Unavailable [phone] Shankar Peñaloza MD Primary Care Provider Shankar Peñaloza MD Unavailable [phone] Richardson Alberts PA-C Unavailable [phone] Shankar Peñaloza MD Unavailable [phone] Marielena Sunshine PA-C Unavailable Radha Rivas Unavailable Unavailable Mraielena Sunshine PA-C Unavailable Reason for Visit * Reason Comments Follow Up Encounter Details Date Type Department Care Team (Late st Contact Info) Description 04/09/2023 11:30 AM CDT Office Visit [facility] [address] [place] [address] [place] [address] [place] [address] Severe episode of recurrent major [...] testing results which she will upload through [employer]. To be copy/pasted into E-consult: 57 year [...] testing completed, is to upload results via [employer] My specific question is if it is [...] weeks for repeat BP/BMP Koko Tracey MD [facility] 04/10/2023 Subjective Genevieve is a 57 [...] st Contact Info) Description 07/16/2023 3:30 PM DICTATING MACHINE MECHANIC Office Visit [address] [place] [address] Shankar Peñaloza MD [address] [place] [address] [place] LOYA [address] 2023 3:00 PM DICTATING MACHINE MECHANIC Virtual Visit [facility] [address] [place] [address] Job Jaramillo, [address] [address] 08/13/2023 2:30 PM DICTATING MACHINE MECHANIC Office Visit [facility] [address] [place] [phone] Koko Tracey MD [address] [place] [address] [id number] documented as of this encounter Results * (ABNORMAL) Basic metabolic panel (Ca, Cl, CO2, Creat, Gluc, K, Na, BUN) (05/27/2023 1:32 PM DICTATING MACHINE MECHANIC) Sodium 138 135 - 145 mmol/L 05/27/2023 9:12 PM DICTATING MACHINE MECHANIC [facility] Comment:Reference intervals for this test were updated on 03/04/2023 to more accurately reflect our healthy population. There may be differences in the flagging of prior results with similar values performed with this method. Interpretation of those prior results can be made in the context of the updated reference intervals. Potassium 3.9 3.4 - 5.3 mmol/L 05/27/2023 9:12 PM DICTATING MACHINE MECHANIC [facility] Chloride 102 98 - 107 mmol/L 05/27/2023 9:12 PM DICTATING MACHINE MECHANIC [facility] Carbon Dioxide (CO2) 27 22 - 29 mmol/L 05/27/2023 9:12 PM DICTATING MACHINE MECHANIC [facility] Anion Gap 9 7 - 15 mmol/L 05/27/2023 9:12 PM DICTATING MACHINE MECHANIC [facility] Urea Nitrogen 23.9(H) 6.0 - 20.0 mg/dL 05/27/2023 9:12 PM DICTATING MACHINE MECHANIC [facility] Creatinine 0.87 0.51 - 0.95 mg/dL 05/27/2023 9:12 PM DICTATING MACHINE MECHANIC [facility] GFR Estimate 78 >60 mL/min/1. 73m2 05/27/2023 9:12 PM DICTATING MACHINE MECHANIC [facility] Calcium 9.4 8.6 - 10.0 mg/dL 05/27/2023 9:12 PM DICTATING MACHINE MECHANIC [facility] Glucose 101(H) 70 - 99 mg/dL 05/27/2023 9:12 PM DICTATING MACHINE MECHANIC [facility] Blood BLOOD SPECIMEN / Unknown Venipuncture / Unknown 05/27/2023 1:32 PM DICTATING MACHINE MECHANIC 05/27/2023 1:32 PM DICTATING MACHINE MECHANIC Koko Tracey MD LAB - BLOOD ORDERABL ES [facility] [address] [facility], Room 3-580 [place] [address], [facility] [phone] documented in this encounter Visit Diagnoses Diagnosis [...] as of this encounter Care Teams Service Center Coordinator Relationship Specialty Start Date End Date Shankar Peñaloza MD [address] [place] [address] [place] LO[place] [address] PCP - General Internal Medicine 09/25/13 Navdeep Waldron MD [facility] [address] [place] [address] Physical Medicine & Rehabilitation - Pain Medicine 07/07/13 Shankar Peñaloza MD [address] [place] [address] [place] [address] Assigned PCP 07/22/16 Richardson Alberts PA-C [address] [place] [address] Physician Paper Final Inspector Gastroenterology 03/01/22 Shankar Peñaloza MD [address] [place] [address] [place] [address] Assigned Pain Medication Provider 06/17/22 Marielena Sunshine PA-C [address] [address] Physician Paper Final Inspector Urology 10/03/22 Radha Rivas Personal Advocate & Liaison (PAL) 11/26/22 Marielena Sunshine PA-C [address] [place] [address] Assigned Surgical Provider 12/07/22 documented as of this encounter
--- OUTSIDE RECORDS SUMMARY | 2023-07-07 10:31 | XMS_ITS | Encounter Summary ---
Author Name Unknown Organization [facility] Address [address] [place] [address]. [place] [address] Care Team Providers Care Drywall Hanger Framer Name Role Phone Navdeep Waldron MD Unavailable [phone] Shankar Peñaloza MD Primary Care Provider Shankar Peñaloza MD Unavailable [phone] Richardson Alberts PA-C Unavailable [phone] Shankar Peñaloza MD Unavailable [phone] Marielena Sunshine PA-C Unavailable Radha Rivas Unavailable Unavailable Marielena Sunshine PA-C Unavailable Reason for Visit * Reason Comments Medication Refill Encounter Details Date Type Department Care Team (Late st Contact Info) Description [facility] [address] [place] [address] [place] [address] [place] [address] Medication Refill Social History Tobacco [...] st Contact Info) Description 07/16/2023 3:30 PM UPKEEP WORKER [facility] [address] [place] [address] Drive [address] [place] [address] Shankar Peñaloza MD [address] [place] [address] [place] [address] 2023 3:00 PM UPKEEP WORKER Virtual Visit [facility] Mental Health and Addiction [facility] [address] [place] [address] Job Jaramillo, [facility] [address] [place] [address] 08/13/2023 2:30 PM UPKEEP WORKER Office Visit [facility] [address] [place] [address] [place] [address] [place] [address] documented as of this encounter Visit Diagnoses Diagnosis Benign essential hypertension Essential hypertension, benign documented in this encounter Additional Health Concerns Assessment Noted Time PHQ-9 Depression Total Score: 19 023 10:41 AM CDT documented as of this encounter Care Teams Drywall Hanger Framer Relationship Specialty Start Date End Date Shankar Peñaloza MD [address] [place] [address] [place] [address] PCP - General Internal Medicine 09/25/13 Navdeep Waldron MD [facility] [address] [place] [address] Physical Medicine & Rehabilitation - Pain Medicine 07/07/13 Shankar Peñaloza MD [address] [place] [address] [place] [address] Assigned PCP 07/22/16 Richardson Alberts PA-C [address] [place] [address] Physician Checkout Supervisor Gastroenterology 03/01/22 Shankar Peñaloza MD [address] [place] [address] [place] [address] Assigned Pain Medication Provider 06/17/22 Marielena Sunshine PA-C [address] [facility] [address] [place], [place] [address] Physician Checkout Supervisor Urology 10/03/22 Radha Rivas Personal Advocate & Liaison (PAL) 11/26/22 Marielena Sunshine PA-C [address] [facility] [address] [place], [place] [address] Assigned Surgical Provider 12/07/22 documented as of this encounter
--- OUTSIDE RECORDS SUMMARY | 2023-07-07 10:31 | XMS_ITS | Encounter Summary ---
Author Name Unknown Organization [facility] Address [address] [place] [address] Care Team Providers Care Health Insurance Assessor Name Role Phone Navdeep Waldron MD Unavailable [phone] Shankar Peñaloza MD Primary Care Provider Shankar Peñaloza MD Unavailable [phone] Richardson Alberts PA-C Unavailable [phone] Shankar Peñaloza MD Unavailable [phone] Marielena Sunshine PA-C Unavailable Radha Rivas Unavailable Unavailable Marielena Sunshine PA-C Unavailable Reason for Visit * Reason Onset Date Comments Refill Request 03/12/2023 Encounter Details Date Type Department Care Team (Late st Contact Info) Description 03/12/2023 Marco Antonio Feliz [facility] [place] [address] [facility] [address] [place] [address] Shankar Peñaloza MD [address] [place] [address] [place] [address] Refill Request Social History [...] FMG refill protocol Elvi Quinones RN, BSN [facility] documented in this encounter Plan of Treatment Upcoming Encounters Date Type Department Care Team (Late st Contact Info) Description 07/16/2023 3:30 PM BLOCK MASON Office Visit [address] [place] [address] Shankar Peñaloza MD [address] [place] [address] [place] [address] 2023 3:00 PM BLOCK MASON Virtual Visit [facility] Addiction [address] [place] [address] [address] 08/13/2023 2:30 PM BLOCK MASON Office Visit [facility] [address] [place] [address] [place] [address] [place] [address] documented as of this encounter Visit Diagnoses Diagnosis Fibromyalgia Mylagia and myositis, unspecified documented in this encounter Additional Health Concerns Assessment Noted Time PHQ-9 Depression Total Score: 19 023 10:41 AM CDT documented as of this encounter Care Teams Health Insurance Assessor Relationship Specialty Start Date End Date Shankar Peñaloza MD [address] [place] [address] [place] [address] PCP - General Internal Medicine 09/25/13 Navdeep Waldron MD [facility] [address] [place] [address] Physical Medicine & Rehabilitation - Pain Medicine 07/07/13 Shankar Peñaloza MD [address] [facility] [place] [address] Assigned PCP 07/22/16 Richardson Alberts PA-C [address] [place] [address] Physician Coater Associate Gastroenterology 03/01/22 Shankar Peñaloza MD [address] [facility] [place] [address] Assigned Pain Medication Provider 06/17/22 Marielena Sunshine PA-C [address] [facility] 377 [place] [address] Physician Coater Associate Urology 10/03/22 Radha Rivas Personal Advocate & Liaison (PAL) 11/26/22 Marielena Sunshine PA-C [address] [facility] [address] [place], [place] [address] Assigned Surgical Provider 12/07/22 documented as of this encounter
--- OUTSIDE RECORDS SUMMARY | 2023-07-07 10:31 | XMS_ITS | Encounter Summary ---
Author Name Unknown Organization [facility] Address [address] [place] [address] Care Team Providers Care Talent Development Analyst Name Role Phone Navdeep Waldron MD Unavailable [phone] Shankar Peñaloza MD Primary Care Provider Shankar Peñaloza MD Unavailable [phone] Richardson Alberts PA-C Unavailable [phone] Shankar Peñaloza MD Unavailable [phone] Marielena Sunshine PA-C Unavailable Radha Rivas Unavailable Unavailable Marielena Sunshine PA-C Unavailable Job Jaramillo TECHNICAL SERVICE ENGINEER Unavailable [phone] Encounter Details Date Type Department Care Team (Late st Contact Info) Description 04/16/2023 Marco Antonio Feliz [facility] [place] [address] [place] [address] Shankar Peñaloza MD [address] [facility] [place] [address] Social History Tobacco [...] st Contact Info) Description 07/16/2023 3:30 PM DRAPERY CUTTER MACHINE Office Visit [facility] [place] [address] [place] [address] Shankar Peñaloza MD [address] [facility] [place] LO[place] [phone] 2023 3:00 PM DRAPERY CUTTER MACHINE Virtual Visit [facility] [place] [address] [place] [address] Job Jaramillo, [facility] [address] [place] [address] 08/13/2023 2:30 PM DRAPERY CUTTER MACHINE Office [facility] [address] [place] [phone] [place] [address] [place] [address] documented as of this encounter Visit Diagnoses Not on filedocumented in this encounter Additional Health Concerns Assessment Noted Time PHQ-9 Depression Total Score: 19 023 10:41 AM CDT documented as of this encounter Care Teams Talent Development Analyst Relationship Specialty Start Date End Date Shankar Peñaloza MD [address] [place] [address] [place] LO[place] [address] PCP - General Internal Medicine 09/25/13 Navdeep Waldron MD [facility] [address] [place] [address] Physical Medicine & Rehabilitation - Pain Medicine 07/07/13 Shankar Peñaloza MD [address] [place] [address] [place] [address] Assigned PCP 07/22/16 Richardson Alberts PA-C [address] [place] [address] Physician Price Analyst Gastroenterology 03/01/22 Shankar Peñaloza MD [address] [facility] [place] [address] Assigned Pain Medication Provider 06/17/22 Marielena Sunshine PA-C [address] [facility] 377 [place] [address] Physician Price Analyst Urology 10/03/22 Radha Rivas Personal Advocate & Liaison (PAL) 11/26/22 Marielena Sunshine PA-C [address] [facility] 500 [place] [address] Assigned Surgical Provider 12/07/22 Job Jaramillo LICSW [address] [address] Manager Business Process Manager Business Process - Clinical 06/23/23 documented as of this encounter
--- OUTSIDE RECORDS SUMMARY | 2023-07-07 10:31 | XMS_ITS | Encounter Summary ---
Author Name Unknown Organization [facility] [place] Address [address] [place] [address] Care Team Providers Care Service Porter Name Role Phone Navdeep Waldron MD Unavailable [phone] Shankar Peñaloza MD Primary Care Provider [phone] Shankar Peñaloza MD Unavailable [phone] Richardson Alberts PA-C Unavailable [phone] Shankar Peñaloza MD Unavailable [phone] Marielena Sunshine PA-C Unavailable Radha Rivas [...] st Contact Info) Description 07/16/2023 3:30 PM CHIEF INVESTIGATOR Office Visit [facility] [place] [address] [place] [address] Shankar Peñaloza MD [address] [facility] [place] LO[place] [id number] 2023 3:00 PM CHIEF INVESTIGATOR Virtual Visit [facility] [address] [place] [address] Job Jaramillo, INVESTMENT DIRECTOR [address] [place], [place] [id number] 08/13/2023 2:30 PM CHIEF INVESTIGATOR Office Visit [facility] [address] [place] [phone] [place] [address] [place], [place] [phone] documented as of this encounter Visit Diagnoses Not on filedocumented in this encounter Additional Health Concerns Assessment Noted Time PHQ-9 Depression Total Score: 19 023 10:41 AM CDT documented as of this encounter Care Teams Service Porter Relationship Specialty Start Date End Date Shankar Peñaloza MD [address] [place] [address] [place] [address] PCP - General Internal Medicine 09/25/13 Navdeep Waldron MD [facility] [address] [place] [address] Physical Medicine & Rehabilitation - Pain Medicine 07/07/13 Shankar Peñaloza MD [address] [place] [address] [place] [address] Assigned PCP 07/22/16 Richardson Alberts PA-C [address] [place] [address] Physician Spray Machine Operator Gastroenterology 03/01/22 Shankar Peñaloza MD [address] [place] [address] [place] [address] Assigned Pain Medication Provider 06/17/22 Marielena Sunshine PA-C [address] [facility] 377 [place] [address] Physician Spray Machine Operator Urology 10/03/22 Radha Rivas Personal Advocate & Liaison (PAL) 11/26/22 Marielena Sunshine PA-C [address] [facility] 500 [place], [place] [address] Assigned Surgical Provider 12/07/22 documented as of this encounter
--- OUTSIDE RECORDS SUMMARY | 2023-07-07 10:31 | XMS_ITS | Encounter Summary ---
Author Name Unknown Organization [facility] Address [address] [place] [address]. [place] [address] Care Team Providers Care Healthcare Sales Representative Name Role Phone Navdeep Waldron MD Unavailable [phone] Shankar Peñaloza MD Primary Care Provider Shankar Peñaloza MD Unavailable [phone] Richardson Alberts PA-C Unavailable [phone] Shankar Peñaloza MD Unavailable [phone] Marielena Sunshine PA-C Unavailable Radha Rivas Unavailable Unavailable Marielena Sunshine PA-C Unavailable Reason for Visit * Reason Comments Medication Refill Encounter Details Date Type Department Care Team (Late st Contact Info) Description 03/21/2023 Refill [facility] [address] [place] [phone] [place] [address] [place], [place] [phone] Medication Refill Social History Tobacco Use Types [...] st Contact Info) Description 07/16/2023 3:30 PM DIGITAL MARKETING LEAD Office Visit [facility] [place] [address] [place] [address] [address] [place] [address] Shankar Peñaloza MD [address] [place] [address] [place] [address] 2023 3:00 PM DIGITAL MARKETING LEAD Virtual Visit [facility] [address] [place] [address] Job Jaramillo, [facility] 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 documented in this encounter Additional Health Concerns Assessment Noted Time PHQ-9 Depression Total Score: 19 023 10:41 AM CDT documented as of this encounter Care Teams Healthcare Sales Representative Relationship Specialty Start Date End Date Shankar Peñaloza MD [address] [place] [address] [place] [address] PCP - General Internal Medicine 09/25/13 Navdeep Waldron MD [facility] [address] [place] [address] Physical Medicine & Rehabilitation - Pain Medicine 07/07/13 Shankar Peñaloza MD [address] [place] [address] [place] [address] Assigned PCP 07/22/16 Richardson Alberts PA-C [address] [place] [address] Physician Home Service Advisor Gastroenterology 03/01/22 Shankar Peñaloza MD [address] [facility] [place] [address] Assigned Pain Medication Provider 06/17/22 Marielena Sunshine PA-C [address] [facility] 377 [place] [address] Physician Home Service Advisor Urology 10/03/22 Radha Rivas Personal Advocate & Liaison (PAL) 11/26/22 Marielena Sunshine PA-C 6[address] [facility] 500 [place], [place] [address] Assigned Surgical Provider 12/07/22 documented as of this encounter
--- OUTSIDE RECORDS SUMMARY | 2023-07-07 10:32 | XMS_ITS | Encounter Summary ---
Author Name Unknown Organization [facility] Address [address] [place] [address] Care Team Providers Care Biomaterials Engineer Name Role Phone Navdeep Waldron MD Unavailable [phone] Shankar Peñaloza MD Primary Care Provider Shankar Peñaloza MD Unavailable [phone] Richardson Alberts PA-C Unavailable [phone] Shankar Peñaloza MD Unavailable [phone] Marielena Sunshine PA-C Unavailable Encounter Details [...] st Contact Info) Description 07/16/2023 3:30 PM GAGGERMAN Office Visit [facility] [place] [address] [place] [address] Drive [address] [place] [address] Shankar Peñaloza MD [address] [place] [address] [place] [address] 2023 3:00 PM GAGGERMAN Virtual Visit [facility] Mental Health and Addiction [address] [place] [address] Job Jaramillo, [facility] [address] [place], [place] [id number] 08/13/2023 2:30 PM GAGGERMAN Office Visit [facility] [address] [place] [address] [place] [address] [place] [address] documented as of this encounter Visit Diagnoses Not on filedocumented in this encounter Additional Health Concerns Assessment Noted Time PHQ-9 Depression Total Score: 16 023 1:59 PM CDT documented as of this encounter Care Teams Biomaterials Engineer Relationship Specialty Start Date End Date Shankar Peñaloza MD [address] [place] [address] [place] [address] PCP - General Internal Medicine 09/25/13 Navdeep Waldron MD [facility] [address] [place] [address] Physical Medicine & Rehabilitation - Pain Medicine 07/07/13 Shankar Peñaloza MD [address] [place] [address] [place] [address] Assigned PCP 07/22/16 Richardson Alberts PA-C [address] [place] [address] Physician Material Scheduler Gastroenterology 03/01/22 Shankar Peñaloza MD [address] [facility] [place] [address] Assigned Pain Medication Provider 06/17/22 Marielena Sunshine PA-C [address] [address] Physician Material Scheduler Urology 10/03/22 documented as of this encounter
--- OUTSIDE RECORDS SUMMARY | 2023-07-07 10:32 | XMS_ITS | Encounter Summary ---
Author Name Unknown Organization [place] Address [address] [place] [address] Care Team Providers Care Grain Broker And Market Operator Name Role Phone Navdeep Waldron MD Unavailable [phone] Shankar Peñaloza MD Primary Care Provider [phone] Shankar Peñaloza MD Unavailable [phone] Richardson AlbertsC Unavailable [phone] Shankar Peñaloza MD Unavailable [phone] Marielena Sunshine PA-C Unavailable Radha Rivas Unavailable Unavailable Reason for Visit * Reason Onset Date Comments Refill Request 12/04/2022 Encounter Details Date Type Department Care Team (Late st Contact Info) Description 12/04/2022 MyC Refill [facility] [place] [address] [facility] [address] [place] [address] Shankar Peñ[place] [address] [place] [address] [place] [address] Refill Request Social History [...] st Contact Info) Description 07/16/2023 3:30 PM STRIPER MACHINE Office Visit [address] [place] [address] Shankar Peñaloza MD [address] [place] [address] [place] [address] 2023 3:00 PM STRIPER MACHINE Virtual Visit [facility] Mental Health and Addiction [address] [place] [address] Job Jaramillo, [facility] [address] [place] [address] 08/13/2023 2:30 PM STRIPER MACHINE Office [facility] [address] [place] [phone] [place] [address] [place] [phone] documented as of this encounter Visit Diagnoses Diagnosis Fibromyalgia Mylagia and myositis, unspecified documented in this encounter Additional Health Concerns Assessment Noted Time PHQ-9 Depression Total Score: 16 023 1:59 PM CDT documented as of this encounter Care Teams Grain Broker And Market Operator Relationship Specialty Start Date End Date Shankar Peñaloza MD [address] [place] [address] [place] [address] PCP - General Internal Medicine 09/25/13 Navdeep Waldron MD [facility] [address] [place] [address] Physical Medicine & Rehabilitation - Pain Medicine 07/07/13 Shankar Peñaloza MD [address] [facility] [place] [address] Assigned PCP 07/22/16 Richardson Alberts PA-C [address] [place] [address] Physician Tug Boat Engineer Gastroenterology 03/01/22 Shankar Peñ[place] [address] [place] [address] [place] [address] Assigned Pain Medication Provider 06/17/22 Marielena Sunshine PA-C [address] [facility] 377 [place] [address] Physician Tug Boat Engineer Urology 10/03/22 Radha Rivas Personal Advocate & Liaison (PAL) 11/26/22 documented as of this encounter
--- OUTSIDE RECORDS SUMMARY | 2023-07-07 10:32 | XMS_ITS | Encounter Summary ---
Author Name Unknown Organization [place] Address [address] [place] [address] Care Team Providers Care Road Supervisor Of Engines Name Role Phone Navdeep Waldron MD Unavailable [phone] Shankar Peñaloza MD Primary Care Provider [phone] Shankar Peñaloza MD Unavailable [phone] Richardson Alberts PA-C Unavailable [phone] Shankar Peñaloza MD Unavailable [phone] Marielena Sunshine PA-C Unavailable [phone] Radha Rivas Unavailable Unavailable Marielena Sunshine PA-C [...] st Contact Info) Description 07/16/2023 3:30 PM INFORMATION TECHNOLOGY ARCHITECT Office Visit [facility] [address] [place] [address] Shankar Peñ[place] [address] [place] [address] ROB[place] LOYA [address] 2023 3:00 PM INFORMATION TECHNOLOGY ARCHITECT Virtual Visit [facility] Mental Health and Addiction [facility] [address] [place] [address] Job Jaramillo, [facility] [address] [place], [place] [address] 08/13/2023 2:30 PM INFORMATION TECHNOLOGY ARCHITECT Office Visit [facility] [address] [place] [address] [place] [address] [place] [address] documented as of this encounter Visit Diagnoses Not on filedocumented in this encounter Additional Health Concerns Assessment Noted Time PHQ-9 Depression Total Score: 17 023 3:44 PM CDT documented as of this encounter Care Teams Road Supervisor Of Engines Relationship Specialty Start Date End Date Shankar Peñaloza MD [address] [place] [address] [place] LOYA [address] PCP - General Internal Medicine 09/25/13 Navdeep Waldron MD [facility] [address] [place] [address] Physical Medicine & Rehabilitation - Pain Medicine 07/07/13 Shankar Peñaloza MD [address] [facility] [place] [address] Assigned PCP 07/22/16 Richardson Alberts PA-C [address] [place] [address] Physician Television Receiver Analyzer Gastroenterology 03/01/22 Shankar Peñaloza MD [address] [facility] [place] [address] Assigned Pain Medication Provider 06/17/22 Marielena Sunshine PA-C [address] [address] [place], [place] [address] Physician Television Receiver Analyzer Urology 10/03/22 Radha Rivas Personal Advocate & Liaison (PAL) 11/26/22 Marielena Sunshine PA-C [address] [facility] 500 [place] [address] Assigned Surgical Provider 12/07/22 documented as of this encounter
--- OUTSIDE RECORDS SUMMARY | 2023-07-07 10:32 | XMS_ITS | Encounter Summary ---
Author Name Unknown Organization [place] Address [address] [place] [address] Care Team Providers Care Ad Operations Coordinator Name Role Phone Navdeep Waldron MD Unavailable [phone] Shankar Peñaloza MD Primary Care Provider Shankar Peñaloza MD Unavailable [phone] Richardson Alberts PA-C Unavailable [phone] Shankar Peñaloza MD Unavailable [phone] Marielena Sunshine PA-C Unavailable Reason for Visit * Reason Comments UTI Entered automaticall y based on patient selection in [employer]. Encounter Details Date Type Department Care Team ([facility] st Contact Info) Description 11/05/2022 2:30 AM CDT E-Visit [facility] [address] [place] [address] Jose E Gloria, PA-C [address] [place] [address] UTI (Entered automatically based on patien... [...] st Contact Info) Description 07/16/2023 3:30 PM RELAY ASSOCIATE Office Visit [facility] [address] [place] [address] Shankar Peñaloza MD [address] [place] [address] [place] LO[place] [address] 2023 3:00 PM RELAY ASSOCIATE Virtual Visit [facility] [address] [place] [address] Job Jaarmillo, [facility] [address] [address] 08/13/2023 2:30 PM RELAY ASSOCIATE Office Visit [facility] [address] [place] [address] [place] [address] [facility] [place] [address] documented as of this encounter Visit Diagnoses Diagnosis Dysuria- Primary documented in this encounter Additional Health Concerns Assessment Noted Time PHQ-9 Depression Total Score: 16 023 1:59 PM CDT documented as of this encounter Care Teams Ad Operations Coordinator Relationship Specialty Start Date End Date Shankar Peñaloza MD [address] [place] [address] [place] LO[place] [address] PCP - General Internal Medicine 09/25/13 Navdeep Waldron MD [facility] [address] [place] [address] Physical Medicine & Rehabilitation - Pain Medicine 07/07/13 Shankar Peñaloza MD [address] [place] [address] [place] LO[place] [address] Assigned PCP 07/22/16 Richardson Alberts PA-C [address] [place] [address] Physician Prosthodontist Gastroenterology 03/01/22 Shankar Peñaloza MD [address] [place] [address] [place] LO[place] [address] Assigned Pain Medication Provider 06/17/22 Marielena Sunshine PA-C [address] [facility] [address] [place] [address] Physician Prosthodontist Urology 10/03/22 documented as of this encounter
--- OUTSIDE RECORDS SUMMARY | 2023-07-07 10:32 | XMS_ITS | Encounter Summary ---
Author Name Unknown Organization [place] Address [address] [place] [address]. [place] [address] Care Team Providers Care Auctioneer Tobacco Name Role Phone Navdeep Waldron MD Unavailable [phone] Shankar Peñaloza MD Primary Care Provider Shankar Peñaloza MD Unavailable [phone] Richardson Alberts PA-C Unavailable [phone] Shankar Peñaloza MD Unavailable [phone] Marielena Sunshine PA-C Unavailable [phone] Radha Rivas Unavailable Unavailable Reason for Visit * Reason Comments Incontinence Recurrent UTI's * Consultation (Routine) - Closed Specialty Diagnoses / Procedures Referred By Arlet felton Referred To Contact Urology Diagnoses [place] [address] [place] [address] Referral ID Status Reason Start Date Expiration Date Visits Re quested Visits Authorized [id number] Closed 10/01/2022 10/01/2023 1 1 Encounter Details Date Type Department Care Team (Late st Contact Info) Description 12/04/2022 1:00 PM CDT Virtual Visit [facility] [address] [place] [address] [place] [address] [place] [id number] Marielena Sunshine PA-C [address] [place] [address] Urinary incontinence, unspecified type (Primary Dx); Female [...] 1:00 PM CDT PT WILL MEET IN [employer] Genevieve is a 57 year old who is being evaluated via a billable video visit. How would you like to obtain your AVS? MyChart If the video visit is dropped, the invitation should be resent by: Text to cell phone: [phone] Will anyone else be joining your video [...] Surgeon: Trip Cruz MD; Location: GI ??? [facility] ??? HYSTERECTOMY, PAP NO LONGER INDICATED [...] with first available urologist Marielena Sunshine PA-C [facility] Urology [phone] documented in this encounter Nursing Notes * [...] st Contact Info) Description 07/16/2023 3:30 PM PHOTOENGRAVING SUPERVISOR Office Visit [address] [place] [address] Shankar Peñaloza MD [address] [facility] ROB[place] LOYA [phone] 2023 3:00 PM PHOTOENGRAVING SUPERVISOR Virtual Visit [facility] Mental Health and Addiction Clinic [address] [place] [address] Job Jaramillo, [facility] [address] [place], [place] [id number] 08/13/2023 2:30 PM PHOTOENGRAVING SUPERVISOR Office Visit [facility] [address] [place] [address] [place] [address] [place] [address] Scheduled Orders Name Type Priority Associated Diagnoses Orde r Schedule UA without Microscopic [[id number]] Lab Routine Urinary incontinence, unspecified type Recurrent UTI Expected: 12/04/2022 (Approximate), Expires: 12/05/2023 MEASURE POST-VOID RESIDUAL URINE/BLADDER CAPACITY, US NON-IMAGING ([id number]) Procedures Routine Urinary incontinence, unspecified type Female [...] documented as of this encounter Care Teams Auctioneer Tobacco Relationship Specialty Start Date End Date Shankar Peñaloza MD [address] [place] [address] ROB[place] LO[place] [address] PCP - General Internal Medicine 09/25/13 Navdeep Waldron MD [facility] [address] [place] [address] Physical Medicine & Rehabilitation - Pain Medicine 07/07/13 Shankar Peñaloza MD [address] [place] [address] [place] [address] Assigned PCP 07/22/16 Richardson Alberts PA-C [address] [place] [address] Physician Director Life Gastroenterology 03/01/22 Shankar Peñaloza MD [address] [place] [address] [place] LO[place] [address] Assigned Pain Medication Provider 06/17/22 Marielena Sunshine PA-C [address] [facility] [address] [place] [address] Physician Director Life Urology 10/03/22 Radha Rivas Personal Advocate & Liaison (PAL) 11/26/22 documented as of this encounter
--- OUTSIDE RECORDS SUMMARY | 2023-07-07 10:32 | XMS_ITS | Encounter Summary ---
Author Name Unknown Organization [place] Address [address] [place] [address]. [place] [address] Care Team Providers Care Community Aide Name Role Phone Navdeep Waldron MD Unavailable [phone] Shankar Peñaloza MD Primary Care Provider Shankar Peñaloza MD Unavailable [phone] Richardson AlbertsC Unavailable [phone] Shankar Peñaloza MD Unavailable [phone] Marielena Sunshine PA-C Unavailable Radha Rivas Unavailable Unavailable Marielena Sunshine PA-C Unavailable Reason for Referral * Mental Health Outpatient (Routine: Next available opening) - Closed Specialty Diagnoses / Procedures Referred By Contac t Referred To Contact Behavioral Health Diagnoses Severe episode of recurrent major depressive disorder, without psychotic features (H) [place] [address] [place] [address] Referral ID Status Reason Start Date Expiration Date Visits Re quested Visits Authorized [id number] Closed 03/11/2023 03/10/2024 1 1 Question Answer Services: Psychotherapy/Counseling (non-medication) Reason for Referral: Individual Psychotherapy/Counseling Scheduling Instructions: [facility] will call you to coordinate your care as prescribed by your provider. If you don't hear from a hotel services sales representative within 2 business days, please call . Comments Please be aware that coverage of these services is subject to the terms and limitations of your health insurance plan. Call member services at your health plan with any benefit or coverage questions. [facility] will call you to coordinate your care as prescribed by your provider. If you don't hear from a hotel services sales representative within 2 business days, please call . Reason for Visit * Reason Comments Medicare Visit Encounter Details Date Type Department Care Team (Late st Contact Info) Description 03/11/2023 10:30 AM CDT Office Visit [facility] [address] [place] [phone] [place] [address] [place] [address] Severe episode of recurrent major [...] for reassessment. - Factor 10 chromogenic - [facility] - citalopram, 10 mg daily Follow up in one month to reassess Koko Tracey MD [facility] 03/11/2023 Subjective Genevieve is a [...] st Contact Info) Description 07/16/2023 3:30 PM PRODUCT TEST ENGINEER Office Visit [facility] [place] [address] [place] [address] Shankar Peñaloza MD [address] [place] [address] [place] LO[place] [address] 2023 3:00 PM PRODUCT TEST ENGINEER Virtual Visit [facility] [address] [place] [phone] Job Jaramillo, EVP AND CHIEF OPERATING OFFICER [address] [place] [address] 08/13/2023 2:30 PM PRODUCT TEST ENGINEER Office Visit [facility] [address] [place] [phone] [place] [address] [place] [address] Scheduled Referrals Name Type Priority Associated Diagnoses Orde r Schedule Adult Mental Health Navy Airspace Officer Referral Referral Routine: Next available opening Severe [...] UM SPECIAL COAGULATION UM Special Coagulation [address], Room 3[address] [place] [address], [facility] [phone] documented in this encounter Visit Diagnoses Diagnosis [...] documented as of this encounter Care Teams Community Aide Relationship Specialty Start Date End Date Shankar Peñaloza MD [address] [place] [address] [place] [address] PCP - General Internal Medicine 09/25/13 Navdeep Waldron MD [facility] [address] [place] [address] Physical Medicine & Rehabilitation - Pain Medicine 07/07/13 Shankar Peñaloza MD [address] [place] [address] [place] LO[place] [address] Assigned PCP 07/22/16 Richardson Alberts PA-C [address] [place] [address] Physician Fishing Floats Assembler Gastroenterology 03/01/22 Shankar Peñaloza MD [address] [place] [address] [place] LO[place] [address] Assigned Pain Medication Provider 06/17/22 Marielena Sunshine PA-C [address] [facility] [address] [place] [address] Physician Fishing Floats Assembler Urology 10/03/22 Radha Rivas Personal Advocate & Liaison (PAL) 11/26/22 Marielena Sunshine PA-C [address] [place] [address] [place] [address] Assigned Surgical Provider 12/07/22 documented as of this encounter
--- OUTSIDE RECORDS SUMMARY | 2023-07-07 10:32 | XMS_ITS | Encounter Summary ---
Author Name Unknown Organization [facility] Address [address] [place] [address] Care Team Providers Care Hemodialysis Patient Care Specialist Name Role Phone Navdeep Waldron MD Unavailable [phone] Shankar Peñaloza MD Primary Care Provider [phone] Shankar Peñaloza MD Unavailable [phone] Richardson Alberts PA-C Unavailable [phone] Shankar Peñaloza MD Unavailable [phone] Marielena Sunshine PA-C Unavailable Radha Rivas Unavailable Unavailable Marielena Sunshine PA-C Unavailable [phone] Reason for Visit * Reason Onset Date Comments Refill Request 02/05/2023 Encounter Details Date Type Department Care Team (Late st Contact Info) Description 02/05/2023 Marco Antonio Feliz [facility] [place] [address] [place] [address] Shankar Peñaloza MD [address] [place] [address] [place] [address] Refill Request Social History [...] Contact Info) Description 07/16/2023 3:30 PM SUPERVISOR COIL SPRINGS Office Visit [address] [place] [address] Shankar Peñaloza MD [address] [place] [address] [place] LO[place] [address] 2023 3:00 PM SUPERVISOR COIL [place]INGS Virtual Visit [facility] Addiction Clinic [address] [place] [address] Job Jaramillo, [address] [place] [address] 08/13/2023 2:30 PM SUPERVISOR COIL SPRINGS Office Visit [facility] [address] [place] [address] [place] [address] [place], [place] [address] documented as of this encounter Visit Diagnoses Diagnosis Fibromyalgia Mylagia and myositis, unspecified documented in this encounter Additional Health Concerns Assessment Noted Time PHQ-9 Depression Total Score: 17 023 3:44 PM CDT documented as of this encounter Care Teams Hemodialysis Patient Care Specialist Relationship Specialty Start Date End Date Shankar Peñaloza MD [address] [place] [address] [place] LO[place] [address] PCP - General Internal Medicine 09/25/13 Navdeep Waldron [facility] [address] [place] [address] Physical Medicine & Rehabilitation - Pain Medicine 07/07/13 Shankar Peñaloza MD [facility] [place] [address] Assigned PCP 07/22/16 Richardson Alberts PA-C [address] [place] [address] Physician Facs Teacher Gastroenterology 03/01/22 Shankar Peñaloza MD [address] [place] [address] [place] LO[place] [address] Assigned Pain Medication Provider 06/17/22 Marielena Sunshine PA-C [address] [facility] [address] [place] [address] Physician Facs Teacher Urology 10/03/22 Radha Rivas Personal Advocate & Liaison (PAL) 11/26/22 Marielena Sunshine PA-C [address] [facility] [address] [facility] [place] [address] Assigned Surgical Provider 12/07/22 documented as of this encounter
--- OUTSIDE RECORDS SUMMARY | 2023-07-07 10:32 | XMS_ITS | Encounter Summary ---
Author Name Unknown Organization [facility] Address [address] [place] [address]. [place] [address] Care Team Providers Care Pocket Builder Name Role Phone Navdeep Waldron MD Unavailable [phone] Shankar Peñaloza MD Primary Care Provider Shankar Peñaloza MD Unavailable [phone] Richardson Alberts PA-C Unavailable [phone] Shankar Peñaloza MD Unavailable [phone] Marielena Sunshine PA-C Unavailable [phone] Reason for Visit * Reason Comments UTI Follow Up Encounter Details Date Type Department Care Team (Late st Contact Info) Description 11/05/2022 2:30 PM CDT Office Visit [facility] [address] [place] [address] Jessee Roque PA-C [address] [place] [address] Acute cystitis without hematuria (Primary [...] 2:30 PM CDT National Suicide Prevention Lifeline [phone] The [facility] Crisis Response Unit (CRU) provides 24-hour phone and qpvr-ac-pnea crisis intervention and consultation. Call [phone] documented in this encounter Progress Notes * [...] safe environment: be around others KARMA Grey [facility] YAKOV Vallejo is a 57 year old, [...] st Contact Info) Description 07/16/2023 3:30 PM CRISIS SPECIALIST [facility] [place] [address] Shankar Peñaloza MD [address] [place] [address] ROB[place] LOYA [phone] 2023 3:00 PM CRISIS SPECIALIST Virtual Visit [facility] Mental Health and Addiction [address] [place] [address] Job Jaramillo, [address] [address] 08/13/2023 2:30 PM CRISIS SPECIALIST Office Visit [facility] [address] [place] [address] [place] [address] [place], [place] [phone] documented as of this encounter Procedures Procedure [...] UM SPECIAL COAGULATION UM Special Coagulation [address] [facility], Room [address] [address], [facility] [phone] * (ABNORMAL) Urine Culture Aerobic Bacterial - [...] coli Cefazolin PADMINI <=4 ug/mL: Susceptible Comment:Cefazolin [place] C breakpoints are for the treatment of [...] MICRO GE NERAL ORDERABLES [facility] IDD [facility] Inf. Diseases Diag. Lab [address] [facility], [address] [place] [address], [facility] [phone] * (ABNORMAL) Urine Microscopic Exam (11/05/2022 2:13 [...] PA-C LAB - URINE OR DERABLES LABORATORY [facility] [place] Lab [address] [facility] Lab (no room number, 1st floor of clinic) [place] [address], [facility] [phone] documented in this encounter Visit Diagnoses Diagnosis [...] documented as of this encounter Care Teams Pocket Builder Relationship Specialty Start Date End Date Shankar Peñaloza MD [address] [place] [address] [place] LO[place] [address] PCP - General Internal Medicine 09/25/13 Navdeep Waldron MD [facility] [address] [place] [address] Physical Medicine & Rehabilitation - Pain Medicine 07/07/13 Shankar Peñaloza MD [address] [place] [address] [place] [address] Assigned PCP 07/22/16 Richardson Alberts PA-C [address] [place] [address] Physician Skein Mercerizing Machine Operator Gastroenterology 03/01/22 Shankar Peñaloza MD [address] [place] [address] [place] [address] Assigned Pain Medication Provider 06/17/22 Marielena Sunshine PA-C [facility] [address] [address] Physician Skein Mercerizing Machine Operator Urology 10/03/22 documented as of this encounter
--- OUTSIDE RECORDS SUMMARY | 2023-07-07 10:32 | XMS_ITS | Encounter Summary ---
Author Name Unknown Organization [place] Address [address] [place] [address] Care Team Providers Care Executive Director Sheltered Workshop Name Role Phone Navdeep Waldron MD Unavailable [phone] Shankar Peñaloza MD Primary Care Provider Shankar Peñaloza MD Unavailable [phone] Richardson Alberts PA-C Unavailable [phone] Shankar Peñaloza MD Unavailable [phone] Marielena Sunshine PA-C Unavailable Encounter Details Date Type Department Care Team (Late st Contact Info) Description 11/08/2022 Orders Only [facility] [address] [place] [address] Jose Moore MD DE ONCOLOGY [address] [facility] 200 [place] [address] Antiphospholipid syndrome (H) (Primary Dx) [...] st Contact Info) Description 07/16/2023 3:30 PM AIRCRAFT DISPATCHER Office Visit [place] [address] [place] [address] Shankar Peñaloza MD [address] [place] [address] [place] [address] 2023 3:00 PM AIRCRAFT DISPATCHER Virtual Visit [facility] Mental Health and Addiction [address] [place] [address] Job Jaramillo, [facility] [address] [place] [address] 08/13/2023 2:30 PM AIRCRAFT DISPATCHER Office Visit [facility] [address] [place] [phone] [place]acey [place] [address] [place] [address] documented as of this encounter Visit Diagnoses Diagnosis Antiphospholipid syndrome (H24)- Primary Primary hypercoagulable state documented in this encounter Additional Health Concerns Assessment Noted Time PHQ-9 Depression Total Score: 16 023 1:59 PM CDT documented as of this encounter Care Teams Executive Director Sheltered Workshop Relationship Specialty Start Date End Date Shankar Peñaloza MD [address] [place] [address] [place] [address] PCP - General Internal Medicine 09/25/13 Navdeep Waldron MD [facility] [address] [place] [address] Physical Medicine & Rehabilitation - Pain Medicine 07/07/13 Shankar Peñaloza MD [address] [facility] [place] [address] Assigned PCP 07/22/16 Richardson Alberts PA-C [address] [place] [address] Physician Laborer Stores Gastroenterology 03/01/22 Shankar Peñaloza MD [address] [facility] [place] [address] Assigned Pain Medication Provider 06/17/22 Marielena Sunshine PA-C [address] [facility] [address] [place], [place] [address] Physician Laborer Stores Urology 10/03/22 documented as of this encounter
--- OUTSIDE RECORDS SUMMARY | 2023-07-07 10:32 | XMS_ITS | Encounter Summary ---
Author Name Unknown Organization [place] Address [address] [place] [address] Care Team Providers Care Car Refinisher Name Role Phone Navdeep Waldron MD Unavailable [phone] Shankar Peñaloza MD Primary Care Provider Shankar Peñaloza MD Unavailable [phone] Richardson Alberts PA-C Unavailable [phone] Shankar Peñaloza MD Unavailable [phone] Marielena Sunshine PA-C Unavailable Radha Rivas Unavailable Unavailable Marielena Sunshine PA-C Unavailable Reason for Visit * Reason Onset Date Comments Refill Request 02/08/2023 Encounter Details Date Type Department Care Team (Late st Contact Info) Description 02/08/2023 Marco Antonio Feliz [facility] [place] [address] [place] [address] Shankar Peñaloza MD [address] [place] [address] [place] [address] Refill Request Social History [...] st Contact Info) Description 07/16/2023 3:30 PM GRINDER MILL OPERATOR Office Visit [address] [place] [address] Shankar Peñaloza MD [address] [place] [address] [place] [address] 2023 3:00 PM GRINDER MILL OPERATOR Virtual Visit [facility] Addiction [facility] [address] [place] [address] Job Jaramillo, [facility] [address] [place] [address] 08/13/2023 2:30 PM GRINDER MILL OPERATOR Office Visit [facility] [address] [place] [phone] [place] [address] [place], [place] [phone] documented as of this encounter Visit Diagnoses Diagnosis Fibromyalgia Mylagia and myositis, unspecified documented in this encounter Additional Health Concerns Assessment Noted Time PHQ-9 Depression Total Score: 17 023 3:44 PM CDT documented as of this encounter Care Teams Car Refinisher Relationship Specialty Start Date End Date Shankar Peñaloza MD [address] [place] [address] [place] [address] PCP - General Internal Medicine 09/25/13 Navdeep Waldron MD [facility] [address] [place] [address] Physical Medicine & Rehabilitation - Pain Medicine 07/07/13 Shankar Peñaloza MD [address] [place] [address] [place] [address] Assigned PCP 07/22/16 Richardson Alberts PA-C [address] [place] [address] Physician Gang Hemstitching Machine Operator Gastroenterology 03/01/22 Shankar Peñaloza MD [address] [place] [address] [place] [address] Assigned Pain Medication Provider 06/17/22 Marielena Sunshine PA-C [address] [facility] [address] [place] [address] Physician Gang Hemstitching Machine Operator Urology 10/03/22 Radha Rivas Personal Advocate & Liaison (PAL) 11/26/22 Marielena Sunshine PA-C [address] [place], [place] [address] Assigned Surgical Provider 12/07/22 documented as of this encounter
--- OUTSIDE RECORDS SUMMARY | 2023-07-07 10:32 | XMS_ITS | Encounter Summary ---
Author Name Unknown Organization [place] Address [address] [place] [address] Care Team Providers Care Furniture Removalist'S Assistant Name Role Phone Navdeep Waldron MD Unavailable [phone] Shankar Peñaloza MD Primary Care Provider [phone] Shankar Peñaloza MD Unavailable [phone] Richardson Alberts PA-C Unavailable Shankar Peñaloza MD Unavailable [phone] Marielena Sunshine PA-C Unavailable Radha Rivas Unavailable Unavailable Marielena Sunshine PA-C Unavailable Reason for Visit * Reason Onset Date Comments Refill Request 01/02/2023 Encounter Details Date Type Department Care Team (Late st Contact Info) Description 01/02/2023 Marco Antonio Feliz [facility] [place] [address] [place] [address] Shankar Peñaloza MD [address] [place] [address] [place] [address] Refill Request Social History [...] st Contact Info) Description 07/16/2023 3:30 PM HEAVY LIFT RIGGER Office Visit [address] [place] [address] Shankar Peñaloza MD [address] [place] [address] [place] [address] 2023 3:00 PM HEAVY LIFT RIGGER Virtual Visit [facility] Mental Health and Addiction [address] [place] [address] Job Jaramillo, [facility] [address] [place] [address] 08/13/2023 2:30 PM HEAVY LIFT RIGGER Office Visit [facility] [address] [place] [address] [place] [address] [place] [address] documented as of this encounter Visit Diagnoses Diagnosis Fibromyalgia Mylagia and myositis, unspecified documented in this encounter Additional Health Concerns Assessment Noted Time PHQ-9 Depression Total Score: 16 023 1:59 PM CDT documented as of this encounter Care Teams Furniture Removalist'S Assistant Relationship Specialty Start Date End Date Shankar Peñaloza MD [address] [place] [address] [place] [address] PCP - General Internal Medicine 09/25/13 Navdeep Waldron MD [facility] [address] [place] [address] Physical Medicine & Rehabilitation - Pain Medicine 07/07/13 Shankar Peñaloza MD [address] [facility] [place] [address] Assigned PCP 07/22/16 Richardson Alberts PA-C [address] [place] [address] Physician Cocoa Mill Operator Gastroenterology 03/01/22 Shankar Peñaloza MD [address] [facility] [place] [address] Assigned Pain Medication Provider 06/17/22 Marielena Sunshine PA-C [address] [facility] [address] [place], [place] [address] Physician Cocoa Mill Operator Urology 10/03/22 Radha Rivas Personal Advocate & Liaison (PAL) 11/26/22 Marielena Sunshine PA-C [address] [facility] [address] [place] [address] Assigned Surgical Provider 12/07/22 documented as of this encounter
--- OUTSIDE RECORDS SUMMARY | 2023-07-07 10:32 | XMS_ITS | Encounter Summary ---
Author Name Unknown Organization [place] Address [address] [place] [address]. [place] [address] Care Team Providers Care Whitewater Rafting Guide Name Role Phone Navdeep Waldron MD Unavailable [phone] Shankar Peñaloza MD Primary Care Provider Shankar Peñaloza MD Unavailable [phone] Richardson Alberts PA-C Unavailable [phone] Shankar Peñaloza MD Unavailable [phone] Marielena Sunshine PA-C Unavailable Radha Rivas Unavailable Unavailable Marielena Sunshine PA-C Unavailable Reason for Visit * Reason Onset Date Comments Clinic Care Coordination - Follow-up 12/24/2022 Encounter Details Date Type Department Care Team (Late st Contact Info) Description 12/24/2022 Telephone [facility] [address] [place] [address] Marielena Sunshine PA-C [address] [facility] [address] [address] Clinic Care Coordination - Follow-up Social History [...] st Contact Info) Description 07/16/2023 3:30 PM SEC ACCOUNTANT Office Visit [facility] [address] [place] [address] Shankar Peñaloza MD [address] [facility] [place] [address] 2023 3:00 PM SEC ACCOUNTANT Virtual Visit [facility] Mental [facility] Addiction Clinic [address] [place] [address] Job Jaramillo, [address] [address] 08/13/2023 2:30 PM SEC ACCOUNTANT Office Visit [facility] [address] [place] [phone] [place] [address] [place] [address] documented as of this encounter Visit Diagnoses Not on filedocumented in this encounter Additional Health Concerns Assessment Noted Time PHQ-9 Depression Total Score: 16 023 1:59 PM CDT documented as of this encounter Care Teams Whitewater Rafting Guide Relationship Specialty Start Date End Date Shankar Peñaloza MD [address] [place] [address] [place] [address] PCP - General Internal Medicine 09/25/13 Navdeep Waldron MD [facility] [address] [place] [address] Physical Medicine & Rehabilitation - Pain Medicine 07/07/13 Shankar Peñaloza MD [address] [place] [address] [place] [address] Assigned PCP 07/22/16 Richardson Alberts PA-C [address] [place] [address] Physician Wood Coater Gastroenterology 03/01/22 Shankar Peñaloza MD [address] [place] [address] [place] [address] Assigned Pain Medication Provider 06/17/22 Marielena Sunshine PA-C [address] [facility] [address] [place], [place] [address] Physician Wood Coater Urology 10/03/22 Radha Rivas Personal Advocate & Liaison (PAL) 11/26/22 Marielena uSnshine PA-C [address] [facility] [address] [place], [place] [address] Assigned Surgical Provider 12/07/22 documented as of this encounter
--- OUTSIDE RECORDS SUMMARY | 2023-07-07 10:32 | XMS_ITS | Encounter Summary ---
Author Name Unknown Organization [place] Address [address] [place] [address] Care Team Providers Care Poultry Culler Name Role Phone Navdeep Waldron MD Unavailable [phone] Shankar Peñaloza MD Primary Care Provider [phone] Shankar Peñaloza MD Unavailable [phone] Richardson Alberts PA-C Unavailable [phone] Shankar Peñaloza MD Unavailable [phone] Marielena Sunshine PA-C Unavailable [phone] Radha Rivas Unavailable Unavailable Marielena Sunshine PA-C Unavailable Reason for Referral * Diagnostic Procedure Outpatient (Routine: Next available opening) - Referral NOT Required Specialty Diagnoses / Procedures Referred By Arlet felton Referred To Contact Gastroenterology Diagnoses Abdominal pain, epigastric 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 [address] [place] [address] [address] Referral ID Status Reason Start Date Expiration Date V isits Requested Visits Authorized Referral NOT Required 01/21/2023 01/21/2024 1 1 Question Answer Service: Upper Endoscopy Upper Endoscopy Type: EGD Sedation Concerns: Chronic or scheduled pain/narcotic medication use Sedation Type: Deep/MAC Sedation Reason for Upper Endoscopy: Barretts Esophagus, worsening abdominal pain and bloating Preferred Location: [facility] Scheduling Instructions: [facility] will call you to coordinate your care as prescribed by the provider. If you don? t hear from a patient representative within 2 business days, please call . Comments Please be aware that coverage of these services is subject to the terms and limitations of your health insurance plan. Call member services at your health plan with any benefit or coverage questions. [facility] will call you to coordinate your care as prescribed by the provider. If you don? t hear from a patient representative within 2 business days, please call . Reason for Visit * Reason Comments Headache Abdominal Pain Jama's esophagus flare up- thinks it could be caused from omprazole Encounter Details Date Type Department Care Team (Late st Contact Info) Description 01/21/2023 4:00 PM CDT Office Visit [address] [phone] [place] [address] [place] [address] Abdominal pain, epigastric (Primary Dx); Jama's esophagus [...] refer for Upper endoscopy. 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 Upper GI. - pantoprazole (PROTONIX) 40 MG EC tablet; Take 1 tablet (40 mg) by mouth daily - Adult GI Offset Press Operator Helper Referral - Procedure Only; Future Dizziness Start [...] Summary See Patient Instructions Iva Flannery MD [facility] NIESHA Vallejo is a 57 year old, [...] st Contact Info) Description 07/16/2023 3:30 PM SERVOMECHANISM ASSEMBLER Office Visit [place] [address] [facility] [address] [place] [address] Shankar Peñaloza MD [address] [facility] [place] [address] 2023 3:00 PM SERVOMECHANISM ASSEMBLER Virtual Visit [facility] [address] [place] [address] Job Jaramillo, [address] [address] 08/13/2023 2:30 PM SERVOMECHANISM ASSEMBLER Office Visit [facility] [address] [place] [address] [place] [address] [place] [address] Scheduled Referrals Name Type Priority Associated Diagnoses Orde r Schedule Adult GI Offset Press Operator Helper Referral - Procedure Only Referral Routine: Next [...] MD LAB - BLOOD ORDERABLES CR LABORATORY [facility] Lab [address] [facility] (no room number, 1st floor of clinic) [place] [address], [facility] [phone] * (ABNORMAL) Comprehensive metabolic panel (BMP + [...] MD LAB - BLOOD ORDERABLES UU LABORATORY [facility] [address] [facility], Room [address] [address], [facility] [phone] * Vitamin B12 (01/21/2023 5:21 PM CDT) Vitamin B12 713 232 - 1,245 pg/mL 01/22/2023 5:33 PM CDT [facility] LABORATORY Blood BLOOD SPECIMEN / Unknown Venipuncture / Unknown 01/21/2023 5:21 PM CDT 01/21/2023 5:21 PM CDT Iva Flannery MD LAB - BLOOD ORDERABLES [facility]AT[facility] [address] [facility], Room [address] [place] [address], [facility] [phone] * TSH with free T4 reflex (01/21/2023 5:21 PM CDT) TSH 0.91 0.30 - 4.20 uIU/mL 01/22/2023 5:33 PM CDT U LABORATORY Blood BLOOD SPECIMEN / Unknown Venipuncture / Unknown 01/21/2023 5:21 PM CDT 01/21/2023 5:21 PM CDT Iva Flannery MD LAB - BLOOD ORDERABLES U LABORATORY [facility] [address] [facility], Room [address] [phone], [facility] [phone] * Magnesium (01/21/2023 5:21 PM CDT) Pathologist [facility] Magnesium 2.0 1.7 - 2.3 mg/dL 01/22/2023 5:33 PM CDT LABORATORY Blood BLOOD SPECIMEN / Unknown Venipuncture / Unknown 01/21/2023 5:21 PM CDT 01/21/2023 5:21 PM CDT Iva Flannery MD LAB - BLOOD ORDERABLES LABORATORY [facility] [address] [facility], Room [address] [address], [facility] [phone] * (ABNORMAL) Factor 10 chromogenic (01/21/2023 5:09 [...] UM SPECIAL COAGULATION UM Special Coagulation [address] [facility], Room [address] [place] [address], [facility] [phone] * (ABNORMAL) Hemoglobin A1c (01/21/2023 5:09 PM CDT) Hemoglobin A1C 5.7(H) 0.0 - 5.6 % 01/21/2023 5:15 PM CDT CR LABORATORY Comment: Normal <5.7% Prediabetes 5.7-6.4% ?? Diabetes 6.5% or higher Note: Adopted from ADA consensus guidelines. Blood BLOOD SPECIMEN / Unknown Venipuncture / Unknown 01/21/2023 5:09 PM CDT 01/21/2023 5:09 PM CDT Iva Flannery MD LAB - BLOOD ORDERABLES CR LABORATORY [address] (no room number, 1st floor of clinic) [place] [address], [place] [phone] * EKG 12-lead complete w/read - Clinics [...] documented as of this encounter Care Teams Poultry Culler Relationship Specialty Start Date End Date Shankar Peñaloza MD [address] [place] [address] [place] [address] PCP - General Internal Medicine 09/25/13 Navdeep Waldron MD [facility] [address] [place] [address] Physical Medicine & Rehabilitation - Pain Medicine 07/07/13 Shankar Peñaloza MD [address] [place] [address] [place] [address] Assigned PCP 07/22/16 Richardson Alberts PA-C [address] [place] [address] Physician Learning And Development Manager Gastroenterology 03/01/22 Shankar Peñaloza MD [address] [place] [address] [place] [address] Assigned Pain Medication Provider 06/17/22 Marielena Sunshine PA-C [address] [facility] [address] [place], [place] [address] Physician Learning And Development Manager Urology 10/03/22 Radha Rivas Personal Advocate & Liaison (PAL) 11/26/22 Marielena Sunshine PA-C [address] [facility] [address] [place], [place] [address] Assigned Surgical Provider 12/07/22 documented as of this encounter
--- OUTSIDE RECORDS SUMMARY | 2023-07-07 10:33 | XMS_ITS | Encounter Summary ---
Author Name Unknown Organization [place] Address [address] [place] [address] Care Team Providers Care Buckle Attacher Name Role Phone Navdeep Waldron MD Unavailable [phone] Shankar Peñaloza MD Primary Care Provider [phone] Shankar Peñaloza MD Unavailable [phone] Leeanna Joe MD Unavailable Richardson Alberts PA-C Unavailable Shankar Peñaloza MD Unavailable [phone] Encounter Details Date Type Department Care [...] st Contact Info) Description 07/16/2023 3:30 PM GUNITE NOZZLE OPERATOR Office Visit [facility] [place] [address] [place] [address] Drive [address] [place] [address] Shankar Peñaloza MD [address] [place] [address] [place] [address] 2023 3:00 PM GUNITE NOZZLE OPERATOR Virtual Visit [facility] Mental Health [facility] Addiction Clinic [address] [place] [address] Job Jaramillo, [facility] [address] [id number] 08/13/2023 2:30 PM GUNITE NOZZLE OPERATOR Office Visit [facility] [address] [place] [address] [place] [address] [place], [place] [phone] documented as of this encounter Visit Diagnoses Not on filedocumented in this encounter Additional Health Concerns Assessment Noted Time PHQ-9 Depression Total Score: 16 023 9:14 AM CDT documented as of this encounter Care Teams Buckle Attacher Relationship Specialty Start Date End Date Shankar Peñaloza MD [address] [place] [address] [place] [address] PCP - General Internal Medicine 09/25/13 Navdeep Waldron MD [facility] [address] [place] [address] Physical Medicine & Rehabilitation - Pain Medicine 07/07/13 Shankar Peñaloza MD [address] [place] [address] [place] [address] Assigned PCP 07/22/16 Leeanna Joe MD [address] [place], [place] [address] Assigned Rheumatology Provider 04/22/21 10/18/22 Richardson Alberts PA-C [address] [place] [address] Physician Refrigeration Supervisor Gastroenterology 03/01/22 Shankar Peñ[place]za [place] [address] [place] [address] [place] [address] Assigned Pain Medication Provider 06/17/22 documented as of this encounter
--- OUTSIDE RECORDS SUMMARY | 2023-07-07 10:33 | XMS_ITS | Encounter Summary ---
Author Name Unknown Organization [facility] Address [address] [place] [address]. [place] [address] Care Team Providers Care Floor Coverer Name Role Phone Navdeep Waldron MD Unavailable + [phone] Shankar Peñaloza MD Primary Care Provider [phone] Shankar Peñaloza MD Unavailable [phone] Leeanna Joe MD Unavailable Richardson Alberts PA-C Unavailable [phone] Shankar Peñaloza MD Unavailable [phone] Reason for Referral * Consultation (Routine) - Closed Specialty Diagnoses / Procedures Referred By Contac t Referred To Contact Urology Diagnoses [place] [address] [place] [address] Referral ID Status Reason Start Date Expiration Date Visits Re quested Visits Authorized [id number] Closed 10/01/2022 10/01/2023 1 1 Question Answer Referral Type: Urology Reason for Referral: Incontinence Scheduling Instructions: [facility] to coordinate care as prescribed your provider. If you don? t hear from a patient relations representative within 2 business days, please call . Comments Please be aware that coverage of these services is subject to the terms and limitations of your health insurance plan. Call member services at your health plan with any benefit or coverage questions. [employer] [facility] will call you to coordinate care as prescribed your provider. If you don? t hear from a patient relations representative within 2 business days, please call . * Diagnostic Imaging Mammo (Routine) - Pending Review Specialty Diagnoses / Procedures Referred By Contac t Referred To Contact Radiology. Diagnoses Visit for screening mammogram Procedures MA SCREENING DIGITAL BILAT - Future (s+30) [place] [address] [place] [address] Referral ID Status Reason Start Date Expiration Date V isits Requested Visits Authorized [id number] Pending Review 10/01/2022 10/01/2023 1 1 Reason [...] Description 10/01/2022 9:30 AM CDT Office Visit [facility] [address] [place] [address] [place] [address] [place], [place] [phone] Visit for screening mammogram (Primary Dx); Need [...] these. Refer for eval Plan: Adult Urology Repairer Art Objects Referral (L30.9) Dermatitis Comment: Plan: triamcinolone (KENALOG) [...] st Contact Info) Description 07/16/2023 3:30 PM CIVIL DIVISION DEPUTY SHERIFF Office Visit [facility] [place] [address] [facility] [address] [place] [address] Shankar Peñaloza MD [address] [facility] [place] [address] 2023 3:00 PM CIVIL DIVISION DEPUTY SHERIFF Virtual Visit [facility] [address] [place] [address] Job Jaramillo, [facility] [address] [place], [place] [address] 08/13/2023 2:30 PM CIVIL DIVISION DEPUTY SHERIFF Office Visit [facility] [address] [place] [address] [place] [address] [place], [place] [phone] Scheduled Orders Name Type Priority Associated Diagnoses Orde r Schedule MA SCREENING DIGITAL BILAT - Future (s+30) Imaging Routine Visit for screening mammogram Expected: 10/01/2022 (Approximate), Expires: 10/02/2023 Scheduled Referrals Name Type Priority Associated Diagnoses Orde r Schedule Adult Urology Repairer Art Objects Referral Referral Routine Female stress incontinence Expected: [...] UM SPECIAL COAGULATION UM Special Coagulation [address] [facility], [address] [place] [address], [facility] [phone] documented in this encounter Visit Diagnoses Diagnosis [...] documented as of this encounter Care Teams Floor Coverer Relationship Specialty Start Date End Date Shankar Peñaloza MD [address] [place] [address] [place] [address] PCP - General Internal Medicine 09/25/13 Navdeep Waldron MD [facility] [address] [place] [address] Physical Medicine & Rehabilitation - Pain Medicine 07/07/13 Shankar Peñaloza MD [address] [place] [address] [place] [address] Assigned PCP 07/22/16 Leeanna Joe MD [address] [place] [address]110[address] Assigned Rheumatology Provider 04/22/21 10/18/22 Richardson Alberts PA-C [address] [place] [address] Physician Parole Agent Gastroenterology 03/01/22 Shankar Peñaloza MD [address] [facility] [place] [address] Assigned Pain Medication Provider 06/17/22 documented as of this encounter
--- OUTSIDE RECORDS SUMMARY | 2023-07-07 10:33 | XMS_ITS | Encounter Summary ---
Author Name Unknown Organization [place] Address [address] [place] [address] Care Team Providers Care Scientific Recruiter Name Role Phone Navdeep Waldron MD Unavailable [phone] Shankar Peñaloza MD Primary Care Provider [phone] Shankar Peñaloza MD Unavailable [phone] Richardson Alberts PA-C Unavailable [phone] Shankar Peñaloza MD Unavailable [phone] Marielena Sunshine PA-C Unavailable Reason for Visit * Reason Onset Date Comments Refill Request 10/31/2022 Encounter Details Date Type Department Care Team (Late st Contact Info) Description 10/31/2022 MyC Sameer M [facility] Keisha [address] [place] [address] Drive [address] [place] [address] Shankar Peñaloza MD [address] [place] [address] [place] [address] Refill Request Social History [...] st Contact Info) Description 07/16/2023 3:30 PM HARBOUR MASTER Office Visit [facility] [address] [facility] [address] [place] [address] Shankar Peñaloza MD [address] [place] [address] [place] LO[place] [address] 2023 3:00 PM HARBOUR MASTER Virtual Visit [facility] Mental Health and Addiction [address] [place] [address] Job Jaramillo, [facility] [address] [place] [address] 08/13/2023 2:30 PM HARBOUR MASTER Office Visit [facility] [address] [place] [phone] [place] [id number] [place] [address] documented as of this encounter Visit Diagnoses Diagnosis Fibromyalgia Mylagia and myositis, unspecified documented in this encounter Additional Health Concerns Assessment Noted Time PHQ-9 Depression Total Score: 16 023 9:14 AM CDT documented as of this encounter Care Teams Scientific Recruiter Relationship Specialty Start Date End Date Shankar Peñaloza MD [address] [place] [address] [place] [address] PCP - General Internal Medicine 09/25/13 Navdeep Waldron MD [facility] [address] [place] [address] Physical Medicine & Rehabilitation - Pain Medicine 07/07/13 Shankar Peñaloza MD [address] [facility] [place] [address] Assigned PCP 07/22/16 Richardson Alberts PA-C [address] [place] [address] Physician Stabber Gastroenterology 03/01/22 Shankar Peñaloza MD [address] [facility] [place] [address] Assigned Pain Medication Provider 06/17/22 Marielena Sunshine PA-C [address] [facility] [address] [place], [place] [address] Physician Stabber Urology 10/03/22 documented as of this encounter
--- OUTSIDE RECORDS SUMMARY | 2023-07-07 10:33 | XMS_ITS | Encounter Summary ---
Author Name Unknown Organization [place] Address [address] [place] [address] Care Team Providers Care Recovery Room Rn Name Role Phone Navdeep Waldron MD Unavailable [phone] Shankar Peñaloza MD Primary Care Provider Shankar Peñaloza MD Unavailable [phone] Richardson Alberts PA-C Unavailable [phone] Shankar Peñaloza MD Unavailable [phone] Marielena Sunshine PA-C Unavailable [phone] Reason for Visit * Reason Comments UTI Entered automaticall y based on patient selection in [employer]. Encounter Details Date Type Department Care Team ([facility] st Contact Info) Description 10/23/2022 1:35 PM CDT E-Visit [facility] [address] [place] [address] Jose E Gloria, PA-C [address] [place] [address] UTI (Entered automatically based on patien... [...] again for choosing us as your health care provider, Jose E Randhawa. KARMA Gloria documented in this encounter Miscellaneous Notes * Telephone Encounter - Jose E Gloria PA-C - 10/23/2022 1:43 PM CDT Provider E-Visit time total (minutes): 3 documented in this encounter Plan of Treatment Upcoming Encounters Date Type Department Care Team (Late st Contact Info) Description 07/16/2023 3:30 PM CRYSTAL CUTTER Office Visit [facility] Keisha [address] [facility] [address] [place] [address] Shankar Peñaloza MD [address] [facility] [place] [address] 2023 3:00 PM CRYSTAL CUTTER Virtual Visit [facility] Mental Health and Addiction [address] [place] [address] Job Jaramillo, [facility] [address] [place] [address] 08/13/2023 2:30 PM CRYSTAL CUTTER Office Visit [facility] [address] [place] [phone] Koko Tracey MD [address] [place] [address] documented as of this encounter Visit Diagnoses Diagnosis Acute UTI (urinary tract infection)- Primary Urinary tract infection, site not specified documented in this encounter Additional Health Concerns Assessment Noted Time PHQ-9 Depression Total Score: 16 023 9:14 AM CDT documented as of this encounter Care Teams Recovery Room Rn Relationship Specialty Start Date End Date Shankar Peñaloza MD [address] [place] [address] [place] [address] PCP - General Internal Medicine 09/25/13 Navdeep Waldron MD [facility] [address] [place] [address] Physical Medicine & Rehabilitation - Pain Medicine 07/07/13 Shankar Peñaloza MD [address] [place] [address] [place] [address] Assigned PCP 07/22/16 Richardson Alberts PA-C [address] [place] [address] Physician Rescue Instructor Gastroenterology 03/01/22 Shankar Peñaloza MD [address] [facility] [place] [address] Assigned Pain Medication Provider 06/17/22 Marielena Sunshine PA-C [address] [address] Physician Rescue Instructor Urology 10/03/22 documented as of this encounter
--- OUTSIDE RECORDS SUMMARY | 2023-07-07 10:33 | XMS_ITS | Encounter Summary ---
Author Name Unknown Organization [place] Address [address] [place] [address] Care Team Providers Care Scrap Yard Worker Name Role Phone Navdeep Waldron MD Unavailable [phone] Shankar Peñaloza MD Primary Care Provider Shankar Peñaloza MD Unavailable [phone] Richardson Alberts PA-C Unavailable Shankar Peñaloza MD Unavailable [phone] Marielena Sunshine PA-C Unavailable Radha Rivas Unavailable Unavailable Marielena Sunshine PA-C Unavailable Job Jaramillo [facility] Unavailable Encounter Details Date Type Department Care Team (Late st Contact Info) Description 10/28/2022 Marco Antonio Feliz [facility] Keisha [address] [place] [address] Shankar Peñaloza MD [address] [facility] [place] [address] Social History Tobacco [...] st Contact Info) Description 07/16/2023 3:30 PM BUNCH MAKER HAND Office Visit [address] [place] [address] Shankar Peñaloza MD [address] [place] [address] [place] [address] 2023 3:00 PM BUNCH MAKER HAND Virtual Visit [facility] [address] [place] [address] Job Jaramillo, [facility] [address] [place] [address] 08/13/2023 2:30 PM BUNCH MAKER HAND Office Visit [facility] [address] [place] [address] [place] [address] [place], [place] [phone] documented as of this encounter Visit Diagnoses Not on filedocumented in this encounter Additional Health Concerns Assessment Noted Time PHQ-9 Depression Total Score: 16 023 9:14 AM CDT documented as of this encounter Care Teams Scrap Yard Worker Relationship Specialty Start Date End Date Shankar Peñaloza MD [address] [place] [address] [place] [address] PCP - General Internal Medicine 09/25/13 Navdeep Waldron MD [facility] [address] [place] [address] Physical Medicine & Rehabilitation - Pain Medicine 07/07/13 Shankar Peñaloza MD [facility] [place] [address] Assigned PCP 07/22/16 Richardson Alberts PA-C [address] [place] [address] Physician Milanese Knitting Machine Operator Gastroenterology 03/01/22 Shankar Peñaloza MD [address] [place] [address] [place] [address] Assigned Pain Medication Provider 06/17/22 Marielena Sunshine PA-C [address] [facility] [address] [place] [address] Physician Milanese Knitting Machine Operator Urology 10/03/22 Radha Rivas Personal Advocate & Liaison (PAL) 11/26/22 Marielena Sunshine PA-C [address] [facility] [address] [place], [place] [address] Assigned Surgical Provider 12/07/22 Job Jaramillo LICSW [address] [place] [address] Continuity Manager Continuity Manager - Clinical 06/23/23 documented as of this encounter
--- OUTSIDE RECORDS SUMMARY | 2023-07-07 10:33 | XMS_ITS | Encounter Summary ---
Author Name Unknown Organization [place] Address [address] [place] [address] Care Team Providers Care Baseball Sewer Hand Name Role Phone Navdeep Waldron MD Unavailable [phone] Shankar Peñaloza MD Primary Care Provider [phone] Shankar Peñaloza MD Unavailable [phone] Leeanna Joe MD Unavailable Richardson Alberts PA-C Unavailable [phone] Shankar Peñaloza MD Unavailable [phone] Reason for Visit * Reason Onset Date Comments Refill Request 09/30/2022 Encounter Details Date Type Department Care Team (Late st Contact Info) Description 09/30/2022 MyC Refill M [facility] [place] Keisha [address] [place] [address] Verenice Estes PA-C [address] [facility] [place] [address] Refill Request Social History [...] st Contact Info) Description 07/16/2023 3:30 PM GRANITE CUTTER [facility] [address] [place] [address] Shankar Peñaloza MD [address] [facility] [place] [address] 2023 3:00 PM GRANITE CUTTER Virtual Visit [facility] Mental Health and Addiction [facility] [address] [place] [address] Job Jaramillo, [facility] [address] [place], [place] [address] 08/13/2023 2:30 PM GRANITE CUTTER Office Visit [facility] [address] [place] [address] [place] [address] [place] [address] documented as of this encounter Visit Diagnoses Diagnosis Fibromyalgia Mylagia and myositis, unspecified documented in this encounter Additional Health Concerns Assessment Noted Time PHQ-9 Depression Total Score: 17 022 7:09 AM GRANITE CUTTER documented as of this encounter Care Teams Baseball Sewer Hand Relationship Specialty Start Date End Date Shankar Peñaloza MD [address] [place] [address] [place] [address] PCP - General Internal Medicine 09/25/13 Navdeep Waldron MD [facility] [address] [place] [address] Physical Medicine & Rehabilitation - Pain Medicine 07/07/13 Shankar Peñaloza MD [address] [place] [address] [place] [address] Assigned PCP 07/22/16 Leeanna Joe MD [address] [place] [address] 676425 Assigned Rheumatology Provider 04/22/21 10/18/22 Richardson Alberts PA-C [address] [facility] [place] [address] Physician Vp Training Gastroenterology 03/01/22 Shankar Peñaloza MD [address] [place] [address] [place] [address] Assigned Pain Medication Provider 06/17/22 documented as of this encounter
--- OUTSIDE RECORDS SUMMARY | 2023-07-07 10:33 | XMS_ITS | Encounter Summary ---
Author Name Unknown Organization [place] Address [address] [place] [address] Care Team Providers Care Vp Production Name Role Phone Navdeep Waldron MD Unavailable [phone] Shankar Peñaloza MD Primary Care Provider Shankar Peñaloza MD Unavailable [phone] Richardson Alberts PA-C Unavailable [phone] Shankar Peñaloza MD Unavailable [phone] Marielena Sunshine PA-C Unavailable [phone] Reason for Visit * Reason Comments Medication Refill Encounter Details Date Type Department Care Team (Late st Contact Info) Description 11/02/2022 Refill M [facility] Keisha [address] [place] [address] Drive [address] [place] [address] Shankar Peñaloza MD [address] [place] [address] [place] [address] Medication Refill Social History [...] st Contact Info) Description 07/16/2023 3:30 PM QC TECH [facility] [address] [place] [address] Shankar Peñ[place] [address] [place] [address] [place] [address] 2023 3:00 PM QC TECH Virtual Visit [facility] Mental Health and Addiction [address] [place] [address] Job Jaramillo, [facility] [address] [place] [address] 08/13/2023 2:30 PM QC TECH Office Visit [facility] [address] [place] [address] [place] [address] [place] [address] documented as of this encounter Visit Diagnoses Diagnosis Primary insomnia Persistent disorder of initiating or maintaining sleep documented in this encounter Additional Health Concerns Assessment Noted Time PHQ-9 Depression Total Score: 16 023 9:14 AM CDT documented as of this encounter Care Teams Vp Production Relationship Specialty Start Date End Date Shankar Peñaloza MD [address] [place] [address] [place] [address] PCP - General Internal Medicine 09/25/13 Navdeep Waldron MD [facility] [address] [place] [address] Physical Medicine & Rehabilitation - Pain Medicine 07/07/13 Shankar Peñaloza MD [address] [facility] [place] [address] Assigned PCP 07/22/16 Richardson Alberts PA-C [address] [place] [address] Physician Weight Control Lecturer Gastroenterology 03/01/22 Shankar Peñaloza MD [address] [facility] [place] [address] Assigned Pain Medication Provider 06/17/22 Marielena Sunshine PA-C [address] [address] Physician Weight Control Lecturer Urology 10/03/22 documented as of this encounter
--- OUTSIDE RECORDS SUMMARY | 2023-07-07 10:33 | XMS_ITS | Encounter Summary ---
Author Name Unknown Organization [place] Address [address] [place] [address] Care Team Providers Care Recreation Superintendent Name Role Phone Navdeep Waldron MD Unavailable [phone] Shankar Peñaloza MD Primary Care Provider Shankar Peñaloza MD Unavailable [phone] Leeanna Joe MD Unavailable Richardson Alberts PA-C Unavailable Shankar Peñaloza MD Unavailable [phone] Reason for Visit * Reason Onset Date Comments Refill Request 08/01/2022 Encounter Details Date Type Department Care Team (Late st Contact Info) Description 08/01/2022 Refill M [facility] Keisha [address] [place] [address] Drive [address] [place] [address] Shankar Peñaloza MD [address] [place] [address] [place] [address] Refill Request Social History [...] to Gloria . Thank you Raúl Randhawa Librarian Specialist FICIAL INSEMINATOR * Telephone Encounter - Shankar Peñaloza MD - 08/01/2022 3:42 PM CST Rx sent to Gloria in [place]. I think she wanted to know when it was sent? Please let her know. FICIAL INSEMINATOR * Telephone Encounter - Moe Barnes RN - 08/01/2022 12:32 PM CST Patient calling, states pharmacy is out of stock of fentaNYL (DURAGESIC) 25 mcg/hr 72 hr patch. Pharmacy does not know when they will have back in stock, may be next week. Patient states Gloria Wilde off [place] does have this medication in stock. Please review and advise on alternative pharmacy requested for medication. Moe Thornton RN 08/01/2022 at 12:34 PM FICIAL INSEMINATOR documented in this encounter Plan of Treatment Upcoming Encounters Date Type Department Care Team (Late st Contact Info) Description 07/16/2023 3:30 PM ARTIFICIAL INSEMINATOR Office Visit [facility] Keisha [address] [place] [address] Shankar Peñ[place] [address] [place] [address] [place] LO[place] [id number] 2023 3:00 PM ARTIFICIAL INSEMINATOR Virtual Visit [facility] [place] [address] [place] [address] Job Jaramillo, [facility] [address] [place] [address] 08/13/2023 2:30 PM ARTIFICIAL INSEMINATOR Office Visit [facility] [address] [place] [phone] [place] [address] [place], [place] [phone] documented as of this encounter Visit Diagnoses Diagnosis Fibromyalgia Mylagia and myositis, unspecified documented in this encounter Additional Health Concerns Assessment Noted Time PHQ-9 Depression Total Score: 17 022 7:09 AM ARTIFICIAL INSEMINATOR documented as of this encounter Care Teams Recreation Superintendent Relationship Specialty Start Date End Date Shankar Peñaloza MD [address] [place] [address] [place] [address] PCP - General Internal Medicine 09/25/[address] [facility] [address] [place] [address] Physical Medicine & Rehabilitation - Pain Medicine 07/07/13 Shankar Peñaloza MD [address] [place] [address] [place] [address] Assigned PCP 07/22/16 Leeanna Joe MD [address] [place] [address] Assigned Rheumatology Provider 04/22/21 10/18/22 Richardson Alberts PA-C [address] [place] [address] Physician Tape Controlled Machine Stitcher Gastroenterology 03/01/22 Shankar Peñaloza MD [address] [facility] [place] [address] Assigned Pain Medication Provider 06/17/22 documented as of this encounter
--- OUTSIDE RECORDS SUMMARY | 2023-07-07 10:33 | XMS_ITS | Encounter Summary ---
Author Name Unknown Organization [place] Address [address] [place] [address]. [place] [address] Care Team Providers Care Capital Project Engineer Name Role Phone Navdeep Waldron MD Unavailable [phone] Shankar Peñaloza MD Primary Care Provider [phone] Shankar Peñaloza MD Unavailable [phone] Leeanna Joe MD Unavailable Richardson Alberts PA-C Unavailable [phone] Shankar Peñaloza MD Unavailable [phone] Reason for Visit * Reason Comments Sinus Problem Entered automaticall y based on patient selection in [employer]. Encounter Details Date Type Department Care Team (Late st Contact Info) Description 07/10/2022 11:55 AM NEWS COPY EDITOR E-Visit [address] [address] Marlena Weller PAGerardC [address] [place] [address] Sinus Problem (Entered automatically based... Social [...] Marlena Weller PA-C - 07/10/2022 11:55 AM NEWS COPY EDITOR Dear Anabel Robb After reviewing your responses, I've been able to diagnose you with bacterial sinusitis. Based on your responses and diagnosis, I have prescribed Augmentin to treat your symptoms. I have sent this to your pharmacy.? It is also important to stay well hydrated, get lots of rest and take ctkw-ilg-iitwvbn decongestants,?tylenol?or ibuprofen if you?are able to?take those [...] website?here.? Thanks again for choosing?us?as your health child care counselor,? ? Marlena Weller PA-C? COPY EDITOR documented in this encounter Miscellaneous Notes * Telephone Encounter - Marlena Weller PA-C - 07/10/2022 12:20 PM NEWS COPY EDITOR Provider E-Visit time total (minutes): 5 COPY EDITOR documented in this encounter Plan of Treatment Upcoming Encounters Date Type Department Care Team (Late st Contact Info) Description 07/16/2023 3:30 PM NEWS COPY EDITOR Office Visit [address] [place] [address] Shankar Peñaloza MD [address] [place] [address] [place] [address] 2023 3:00 PM NEWS COPY EDITOR Virtual Visit [facility] Mental Health and Addiction [facility] [address] [place] [address] Job Jaramillo, [facility] [address] [place] [address] 08/13/2023 2:30 PM NEWS COPY EDITOR Office Visit [facility] [address] [place] [address] [place] [address] [place] [address] documented as of this encounter Visit Diagnoses Diagnosis Acute bacterial sinusitis- Primary Acute sinusitis, unspecified documented in this encounter Additional Health Concerns Assessment Noted Time PHQ-9 Depression Total Score: 17 022 7:09 AM NEWS COPY EDITOR documented as of this encounter Care Teams Capital Project Engineer Relationship Specialty Start Date End Date Shankar Peñaloza MD [address] [place] [address] [place] [address] PCP - General Internal Medicine 09/25/13 Navdeep Waldron MD [facility] [address] [place] [address] Physical Medicine & Rehabilitation - Pain Medicine 07/07/13 Shankar Peñaloza MD [address] [place] [address] [place] [address] Assigned PCP 07/22/16 Leeanna Joe MD [address] [place] [address] Assigned Rheumatology Provider 04/22/21 10/18/22 Richardson Alberts PA-C [address] [place] [address] Physician Health Science Specialist Gastroenterology 03/01/22 Shankar Peñaloza MD [address] [facility] [place] [address] Assigned Pain Medication Provider 06/17/22 documented as of this encounter
--- OUTSIDE RECORDS SUMMARY | 2023-07-07 10:33 | XMS_ITS | Encounter Summary ---
Author Name Unknown Organization [place] Address [address] [place] [address] Care Team Providers Care Housekeeping Aid Name Role Phone Navdeep Waldron MD Unavailable [phone] Shankar Peñaloza MD Primary Care Provider Shankar Peñaloza MD Unavailable [phone] Capri Gant OD Unavailable Leeanna Joe MD Unavailable Richardson AlbertsC Unavailable [phone] Shankar Peñaloza MD Unavailable [phone] Marielena Sunshine PA-C Unavailable Radha Rivas Unavailable Unavailable Marielena Sunshine PA-C Unavailable Job Jaramillo Unavailable [phone] Encounter Details Date Type Department Care Team (Late st Contact Info) Description 05/26/2022 Marco Antonio Feliz [facility] [place] [address] [facility] [address] [place] [address] Shankar Peñaloza MD [address] [facility] [place] [address] Social History Tobacco Use [...] to have Coronavirus/COVID-19? Yes 05/18/2022 12:40 PM CHIEF MERCHANDISING OFFICER documented as of this encounter Plan of Treatment Upcoming Encounters Date Type Department Care Team (Late st Contact Info) Description 07/16/2023 3:30 PM CHIEF MERCHANDISING OFFICER Office Visit [address] [place] [phone] Shankar Peñaloza MD [address] [facility] [place] [address] 2023 3:00 PM CHIEF MERCHANDISING OFFICER Virtual Visit [facility] [address] [place] [address] Job Jaramillo, [address] [id number] 08/13/2023 2:30 PM CHIEF MERCHANDISING OFFICER Office Visit [facility] [address] [place] [address] [place] [address] [facility] [place] [address] documented as of this encounter Visit Diagnoses Not on filedocumented in this encounter Additional Health Concerns Infection Onset Date Last Indicated Resolved Time COVID-19 05/07/2022 05/07/2022 05/28/2022 11:3 9 PM CHIEF MERCHANDISING OFFICER Assessment Noted Time PHQ-9 Depression Total Score: 13 022 10:38 AM CDT documented as of this encounter Care Teams Housekeeping Aid Relationship Specialty Start Date End Date Shankar Peñaloza MD [address] [place] [address] [place] [address] PCP - General Internal Medicine 09/25/13 Navdeep Waldron MD [facility] [address] [place] [address] Physical Medicine & Rehabilitation - Pain Medicine 07/07/13 Shankar Peñaloza MD [address] [place] [address] [place] [address] Assigned PCP 07/22/16 Capri Gant OD [address] [place] [address] [place] [address] Assigned Surgical Provider 04/29/21 05/31/22 Leeanna Joe MD [address] [place] [address] Assigned Rheumatology Provider 04/22/21 10/18/22 Richardson Alberts PA-C [address] [place] [address] Physician Associate Artistic Director Gastroenterology 03/01/22 Shankar Peñaloza MD [address] [place] [address] [place] [address] Assigned Pain Medication Provider 06/17/22 Marielena Sunshine PA-C [address] [place] [address] Physician Associate Artistic Director Urology 10/03/22 Radha Rivas Personal Advocate & Liaison (PAL) 11/26/22 Marielena Sunshine PA-C [address] [place], [place] [address] Assigned Surgical Provider 12/07/22 Job Jaramillo LICSW [address] [place] [address] Computer Systems Designer Computer Systems Designer - Clinical 06/23/23 documented as of this encounter
--- OUTSIDE RECORDS SUMMARY | 2023-07-07 10:33 | XMS_ITS | Encounter Summary ---
Author Name Unknown Organization [place] Address [address] [place] [address] Care Team Providers Care Light Truck Driver Name Role Phone Navdeep Waldron MD Unavailable [phone] Shankar Peñaloza MD Primary Care Provider Shankar Peñaloza MD Unavailable [phone] Leeanna Joe MD Unavailable Richardson Alberts PA-C Unavailable [phone] Shankar Peñaloza MD Unavailable [phone] Reason for Visit * Reason Onset Date Comments Refill Request 08/29/2022 Encounter Details Date Type Department Care Team (Late st Contact Info) Description 08/29/2022 MyC Refill M [facility] [place] [address] [place] [address] Drive [address] [place] [address] Shankar Peñaloza MD [address] [place] [address] [place] [address] Refill Request Social History [...] st Contact Info) Description 07/16/2023 3:30 PM ADVENTURE GUIDE [facility] [address] [place] [address] Drive [address] [place] [address] Shankar Peñaloza MD [address] [place] [address] [place] [address] 2023 3:00 PM ADVENTURE GUIDE Virtual Visit [facility] [address] [place] [address] [address] [address] 08/13/2023 2:30 PM ADVENTURE GUIDE Office Visit [facility] [address] [place] [address] [place] [address] [place] [address] documented as of this encounter Visit Diagnoses Diagnosis Fibromyalgia Mylagia and myositis, unspecified documented in this encounter Additional Health Concerns Assessment Noted Time PHQ-9 Depression Total Score: 17 022 7:09 AM ADVENTURE GUIDE documented as of this encounter Care Teams Light Truck Driver Relationship Specialty Start Date End Date Shankar Peñaloza MD [address] [place] [address] [place] [address] PCP - General Internal Medicine 09/25/13 Navdeep Waldron MD [facility] [address] [place] [address] Physical Medicine & Rehabilitation - Pain Medicine 07/07/13 Shankar Peñaloza MD [address] [place] [address] [place] [address] Assigned PCP 07/22/16 Leeanna Joe MD [address] [place] [address] 484425 Assigned Rheumatology Provider 04/22/21 10/18/22 Richardson Alberts PA-C [address] [place] [address] Physician Supervisor Dumping Gastroenterology 03/01/22 Shankar Peñaloza MD [address] [place] [address] [place] [address] Assigned Pain Medication Provider 06/17/22 documented as of this encounter
--- OUTSIDE RECORDS SUMMARY | 2023-07-07 10:33 | XMS_ITS | Encounter Summary ---
Author Name Unknown Organization [place] Address [address] [place] [address] Care Team Providers Care Psychologist Engineering Name Role Phone Navdeep Waldron MD Unavailable [phone] Shankar Peñaloza MD Primary Care Provider Shankar Peñaloza MD Unavailable [phone] Leeanna Joe MD Unavailable Richardson Alberts PA-C Unavailable [phone] Shankar Peñaloza MD Unavailable [phone] Reason for Visit * Reason Onset Date Comments Refill Request 07/28/2022 Encounter Details Date Type Department Care Team (Late st Contact Info) Description 07/28/2022 MyC Refill M [facility] [place] [address] [place] [address] Drive [address] [place] [address] Shankar Peñaloza MD [address] [place] [address] [place] [address] Refill Request Social History [...] st Contact Info) Description 07/16/2023 3:30 PM LAW WRITER [facility] [address] [place] [address] Drive [address] [place] [address] Shankar Peñaloza MD [address] [place] [address] [place] [address] 2023 3:00 PM LAW WRITER Virtual Visit [facility] [address] [place] [address] [address] 08/13/2023 2:30 PM LAW WRITER Office Visit [facility] [address] [place] [address] [place] [address] [place] [address] documented as of this encounter Visit Diagnoses Diagnosis Fibromyalgia Mylagia and myositis, unspecified documented in this encounter Additional Health Concerns Assessment Noted Time PHQ-9 Depression Total Score: 17 022 7:09 AM LAW WRITER documented as of this encounter Care Teams Psychologist Engineering Relationship Specialty Start Date End Date Shankar Peñaloza MD [address] [place] [address] [place] [address] PCP - General Internal Medicine 09/25/13 Navdeep Waldron MD [facility] [address] [place] [address] Physical Medicine & Rehabilitation - Pain Medicine 07/07/13 Shankar Peñaloza MD [address] [place] [address] [place] [address] Assigned PCP 07/22/16 Leeanna Joe MD [address] [place] [address]1455 Assigned Rheumatology Provider 04/22/21 10/18/22 Richardson Alberts PA-C [address] [place] [address] Physician Catalyst Manufacturing Operator Gastroenterology 03/01/22 Shankar Peñaloza MD [address] [place] [address] [place] [address] Assigned Pain Medication Provider 06/17/22 documented as of this encounter
--- OUTSIDE RECORDS SUMMARY | 2023-07-07 10:33 | XMS_ITS | Encounter Summary ---
Author Name Unknown Organization [place] Address [address] [place] [address] Care Team Providers Care Nuclear Security Officer Name Role Phone Navdeep Waldron MD Unavailable [phone] Shankar Peñaloza MD Primary Care Provider Shankar Peñaloza MD Unavailable [phone] Leeanna Joe MD Unavailable Richardson Alberts-C Unavailable Shankar Peñaloza MD Unavailable [phone] Marielena Sunshine PA-C Unavailable [phone] Radha Rivas Unavailable Unavailable Marielena Sunshine PA-C Unavailable Job Jaramillo Unavailable [phone] Reason for Visit * Reason Onset Date Comments Refill Request 09/30/2022 Encounter Details Date Type Department Care Team (Late st Contact Info) Description 09/30/2022 Marco Antonio Feliz [facility] [place] [address] [facility] [address] [place] [address] Marysol [place]ón [place] [address] [place] [address] [place] [address] Refill Request Social History [...] st Contact Info) Description 07/16/2023 3:30 PM WHARF TENDER HELPER Office Visit [place] [address] [facility] [address] [place] [address] Shankar Peñaloza MD [address] [facility] [place] [address] 2023 3:00 PM WHARF TENDER HELPER Virtual Visit [facility] [address] [place] [address] Job Jaramillo, [facility] [address] [id number] 08/13/2023 2:30 PM WHARF TENDER HELPER Office Visit [facility] [address] [place] [address] [place] [address] [place] [address] documented as of this encounter Visit Diagnoses Diagnosis Fibromyalgia Mylagia and myositis, unspecified documented in this encounter Additional Health Concerns Assessment Noted Time PHQ-9 Depression Total Score: 17 022 7:09 AM WHARF TENDER HELPER documented as of this encounter Care Teams Nuclear Security Officer Relationship Specialty Start Date End Date Shankar Peñaloza MD [address] [place] [address] [place] [address] PCP - General Internal Medicine 09/25/13 Navdeep Waldron MD [facility] [address] [place], [place] [id number] Physical Medicine & Rehabilitation - Pain Medicine 07/07/13 Shankar Peñaloza MD [address] [place] [address] [place] [address] Assigned PCP 07/22/16 Leeanna Joe MD [address] [place], [place] 984665 Assigned Rheumatology Provider 04/22/21 10/18/22 Richardson Alberts PA-C [address] [place], [place] [address] Physician Geology Associate Gastroenterology 03/01/22 Shankar Peñaloza MD [address] [place] [address] [place] [address] Assigned Pain Medication Provider 06/17/22 Marielena Sunshine PA-C [address] [facility] [address] [place] [address] Physician Geology Associate Urology 10/03/22 Radha Rivas Personal Advocate & Liaison (PAL) 11/26/22 Marielena Sunshine PA-C [address] [facility] [address] [place] [address] Assigned Surgical Provider 12/07/22 Job Jaramillo LICSW [address] [place] [address] Inspector Precision Assembly Inspector Precision Assembly - Clinical 06/23/23 documented as of this encounter
--- OUTSIDE RECORDS SUMMARY | 2023-07-07 10:33 | XMS_ITS | Encounter Summary ---
Author Name Unknown Organization [place] Address [address] [place] [address] Care Team Providers Care Director Of Fundraising Name Role Phone Navdeep Waldron MD Unavailable [phone] Shankar Peñaloza MD Primary Care Provider [phone] Shankar Peñaloza MD Unavailable [phone] Leeanna Joe MD Unavailable Richardson Alberts PA-C Unavailable Shankar Peñaloza MD Unavailable [phone] Reason for Visit * Reason Onset Date Comments Refill Request 08/29/2022 Encounter Details Date Type Department Care Team (Late st Contact Info) Description 08/29/2022 MyC Refill M [facility] [place] [address] [facility] [address] [place] [address] Verenice Estes PA-C [address] [facility] [place] [address] Refill Request Social [...] st Contact Info) Description 07/16/2023 3:30 PM INSURANCE SALES SUPERVISOR Office Visit [address] [place] [address] Shankar Peñaloza MD [address] [place] [address] [place] [address] 2023 3:00 PM INSURANCE SALES SUPERVISOR Virtual Visit [facility] [address] [place] [address] Job Jaramillo, [address] [address] 08/13/2023 2:30 PM INSURANCE SALES SUPERVISOR Office [facility] [address] [place] [address] [place] [address] [place] [address] documented as of this encounter Visit Diagnoses Diagnosis Fibromyalgia Mylagia and myositis, unspecified documented in this encounter Additional Health Concerns Assessment Noted Time PHQ-9 Depression Total Score: 17 022 7:09 AM INSURANCE SALES SUPERVISOR documented as of this encounter Care Teams Director Of Fundraising Relationship Specialty Start Date End Date Shankar Peñaloza MD [address] [place] [address] [place] [address] PCP - General Internal Medicine 09/25/13 Navdeep Waldron MD [facility] [address] [place] [address] Physical Medicine & Rehabilitation - Pain Medicine 07/07/13 Shankar Peñaloza MD [address] [place] [address] [place] [address] Assigned PCP 07/22/16 Leeanna Joe MD [address] [place] [address] [id number] Assigned Rheumatology Provider 04/22/21 10/18/22 Richardson Alberts PA-C [address] [place] [address] Physician Coremaking Machine Setter Gastroenterology 03/01/22 Shankar Peñaloza MD [address] [place] [address] [place] [address] Assigned Pain Medication Provider 06/17/22 documented as of this encounter
--- OUTSIDE RECORDS SUMMARY | 2023-07-07 10:33 | XMS_ITS | Encounter Summary ---
Author Name Unknown Organization [place] Address [address] [place] [address] Care Team Providers Care Oracle Reports Developer Name Role Phone Navdeep Waldron MD Unavailable [phone] Shankar Peñaloza MD Primary Care Provider Shankar Peñaloza MD Unavailable [phone] Leeanna Joe MD Unavailable Richardson Alberts PA-C Unavailable [phone] Shankar Peñaloza MD Unavailable [phone] Reason for Visit * Reason Onset Date Comments Medication Question 08/30/2022 Hydromorphon e Encounter Details Date Type Department Care Team (Late st Contact Info) Description 08/30/2022 Telephone [facility] [place] [address] [facility] [address] [place] [address] Verenice Estes PA-C [address] [facility] [place] [address] Medication Question (Hydromorphone) Social [...] 08/30/2022 1:55 PM CDT Fax received from [employer] Medication: Hydromorphone HCL 2MG TABLETS Message: Prescription shows both every 6 hours and every 4 hours - which of these two frequencies is correct? documented in this encounter Plan of Treatment Upcoming Encounters Date Type Department Care Team (Late st Contact Info) Description 07/16/2023 3:30 PM DISH ROOM WORKER Office Visit [address] [place] [address] Shankar Peñaloza MD [address] [place] [address] [place] [address] 2023 3:00 PM DISH ROOM WORKER Virtual Visit [facility] [address] [place] [address] Job Jaramillo, [address] [address] 08/13/2023 2:30 PM DISH ROOM WORKER Office [facility] [address] [place] [address] [place] [address] [place], [place] 6[address] documented as of this encounter Visit Diagnoses Diagnosis Fibromyalgia Mylagia and myositis, unspecified documented in this encounter Additional Health Concerns Assessment Noted Time PHQ-9 Depression Total Score: 17 022 7:09 AM DISH ROOM WORKER documented as of this encounter Care Teams Oracle Reports Developer Relationship Specialty Start Date End Date Shankar Peñaloza MD [address] [place] [address] [place] [address] PCP - General Internal Medicine 09/25/13 Navdeep Waldron MD [facility] [address] [place] [address] Physical Medicine & Rehabilitation - Pain Medicine 07/07/13 Shankar Peñaloza MD [address] [place] [address] [place] [address] Assigned PCP 07/22/16 Leeanna Joe MD [address] [place] [address] Assigned Rheumatology Provider 04/22/21 10/18/22 Richardson Alberts PA-C [address] [place] [address] Physician Contact Center Team Lead Gastroenterology 03/01/22 Shankar Peñaloza MD [address] [place] [address] [place] [address] Assigned Pain Medication Provider 06/17/22 documented as of this encounter
--- OUTSIDE RECORDS SUMMARY | 2023-07-07 10:33 | XMS_ITS | Encounter Summary ---
Author Name Unknown Organization [place] Address [address] [place] [address] Care Team Providers Care Store Sales Manager Name Role Phone Navdeep Waldron MD Unavailable [phone] Shankar Peñaloza MD Primary Care Provider [phone] Shankar Peñaloza MD Unavailable [phone] Leeanna Joe MD Unavailable Richardson Alberts PA-C Unavailable [phone] Shankar Peñaloza MD Unavailable [phone] Encounter Details Date Type Department Care Team (Late st Contact Info) Description 10/02/2022 Orders Only [facility] [address] [place] [address] Jose Moore MD [facility] [address] [facility] [address] [place] [address] Anti-phospholipid syndrome (H) (Primary Dx) [...] st Contact Info) Description 07/16/2023 3:30 PM PARTY COORDINATOR Office Visit [facility] [place] [address] [place] [address] Shankar Peñaloza MD [address] [facility] [place] [id number] 2023 3:00 PM PARTY COORDINATOR Virtual Visit [facility] [address] [place] [address] Job Jaramillo, [facility] [address] [place] [address] 08/13/2023 2:30 PM PARTY COORDINATOR Office Visit [facility] [address] [place] [phone] [place] [address] [place], [place] [phone] documented as of this encounter Results * [...] [facility] [address], Room 3-580 [place] [address], [facility] [phone] documented in this encounter Visit Diagnoses Diagnosis Anti-phospholipid syndrome (H24)- Primary Primary hypercoagulable state documented in this encounter Additional Health Concerns Assessment Noted Time PHQ-9 Depression Total Score: 16 023 9:14 AM CDT documented as of this encounter Care Teams Store Sales Manager Relationship Specialty Start Date End Date Shankar Peñaloza MD [address] [facility] [place] [address] PCP - General Internal Medicine 09/25/13 Navdeep Waldron MD [facility] [address] [place] [address] Physical Medicine & Rehabilitation - Pain Medicine 07/07/13 Shankar Peñaloza MD [address] [place] [address] [place] [address] Assigned PCP 07/22/16 Leeanna Joe MD [address] [place], [place] [address] Assigned Rheumatology Provider 04/22/21 10/18/22 Richardson Alberts PA-C [address] [place] [address] Physician Ad Clerk Gastroenterology 03/01/22 Shankar Peñaloza MD [address] [facility] [address] [place], [place] [address] Assigned Pain Medication Provider 06/17/22 documented as of this encounter
--- OUTSIDE RECORDS SUMMARY | 2023-07-07 10:34 | XMS_ITS | Encounter Summary ---
Author Name Unknown Organization [place] Address [address] [place] [address] Care Team Providers Care Second Cutter Name Role Phone Navdeep Waldron MD Unavailable [phone] Shankar Peñaloza MD Primary Care Provider Shankar Peñaloza MD Unavailable [phone] Capri Gant OD Unavailable Leeanna Joe MD Unavailable Richardson Alberts-C Unavailable [phone] Shankar Peñaloza MD Unavailable [phone] Marielena Sunshine PA-C Unavailable Radha Rivas Unavailable Unavailable Marielena Sunshine PA-C Unavailable [phone] Job Jaramillo Unavailable Encounter Details Date Type Department Care Team (Late st Contact Info) Description 04/18/2022 Marco Antonio Feliz [facility] [place] [address] [facility] [address] [place] [address] Shankar Peñaloza MD [address] [facility] [place] [address] Social History Tobacco [...] Coronavirus/COVID-19? No / Unsure 04/15/2022 9:34 AM DUMB WAITER OPERATOR documented as of this encounter Plan of Treatment Upcoming Encounters Date Type Department Care Team (Late st Contact Info) Description 07/16/2023 3:30 PM DUMB WAITER OPERATOR Office Visit [place] [address] [facility] [address] [place] [address] Shankar Peñaloza MD [address] [facility] [place] [address] 2023 3:00 PM DUMB WAITER OPERATOR Virtual Visit [facility] [address] [place] [address] Job Jaramillo, [facility] [address] [place], [place] [address] 08/13/2023 2:30 PM DUMB WAITER OPERATOR Office Visit [facility] [address] [place] [address] [place] [address] [place] [address] documented as of this encounter Visit Diagnoses Not on filedocumented in this encounter Additional Health Concerns Infection Onset Date Last Indicated Resolved Time COVID-19 05/07/2022 05/07/2022 05/28/2022 11:3 9 PM DUMB WAITER OPERATOR Assessment Noted Time PHQ-9 Depression Total Score: 13 022 10:38 AM CDT documented as of this encounter Care Teams Second Cutter Relationship Specialty Start Date End Date Shankar Peñaloza MD [address] [place] [address] [place] [address] PCP - General Internal Medicine 09/25/13 Navdeep Waldron MD [facility] [address] [place] [address] Physical Medicine & Rehabilitation - Pain Medicine 07/07/13 Shankar Peñaloza MD [address] [place] [address] [place] [address] Assigned PCP 07/22/16 Capri Gant OD [address] [place] [address] [place] [address] Assigned Surgical Provider 04/29/21 05/31/22 Leeanna Joe MD [address] [place] [address] Assigned Rheumatology Provider 04/22/21 10/18/22 Richardson Alberts PA-C [address] [place] [address] Physician Theater Education Teacher Gastroenterology 03/01/22 Shankar Peñaloza MD [address] [place] [address] [place] [address] Assigned Pain Medication Provider 06/17/22 Marielena Sunshine PA-C [facility] [address] [place] [address] Physician Theater Education Teacher Urology 10/03/22 Radha Rivas Personal Advocate & Liaison (PAL) 11/26/22 Marielena Sunshine PA-C [address] [facility] [address] [place] [address] Assigned Surgical Provider 12/07/22 Job Jaramillo LICSW [address] [place] [address] Mercury Purifier Mercury Purifier - Clinical 06/23/23 documented as of this encounter
--- OUTSIDE RECORDS SUMMARY | 2023-07-07 10:34 | XMS_ITS | Encounter Summary ---
Author Name Unknown Organization [place] Address [address] [place] [address] Care Team Providers Care Paste Maker Name Role Phone Navdeep Waldron MD Unavailable [phone] Shankar Peñaloza MD Primary Care Provider [phone] Shankar Peñaloza MD Unavailable [phone] Capri Gant OD Unavailable Leeanna Joe MD Unavailable Richardson Alberts PA-C Unavailable [phone] Shankar Peñaloza MD Unavailable [phone] Marielena Sunshine PA-C Unavailable Radha Rivas Unavailable Unavailable Marielena Sunshine PA-C Unavailable Job Jaramillo Unavailable Reason for Referral * Consultation (Routine: Next available opening) - Closed Specialty Diagnoses / Procedures Referred By Contjohnny t Referred To Contact Gastroenterology Diagnoses Epigastric pain Gastroesophageal reflux disease, unspecified whether esophagitis present Shankar Peñaloza MD [address] [facility] [place] [address] [facility] [address] [place] [phone] Referral ID Status Reason Start Date Expiration Date Visits Re quested Visits Authorized [id number] Closed 02/05/2022 02/05/2023 1 1 Question Answer Reason for Referral: General GI Scheduling Instructions: [facility] will call you to coordinate your care as prescribed by the provider. If you don? t hear from a ambulatory services representative within 2 business days, please call . Comments Please be aware that coverage of these services is subject to the terms and limitations of your health insurance plan. Call member services at your health plan with any benefit or coverage questions. [facility] will call you to coordinate your care as prescribed by the provider. If you don? t hear from a ambulatory services representative within 2 business days, please call . Encounter Details Date Type Department Care Team (Late st Contact Info) Description 02/05/2022 [facility] [address] [place] [address] [address] [place] [address] Shankar Peñaloza MD [address] [place] [address] [place] [address] Epigastric pain (Primary Dx); Gastroesophageal reflux [...] Contact Info) Description 07/16/2023 3:30 PM YOUTH DEVELOPMENT SPECIALIST Office Visit [facility] [address] [place] [address] Shankar Peñaloza MD [address] [facility] [place] [address] 2023 3:00 PM YOUTH DEVELOPMENT SPECIALIST Virtual Visit [facility] Mental Health and Addiction [address] [place] [address] Job Jaramillo, [facility] [address] [id number] 08/13/2023 2:30 PM YOUTH DEVELOPMENT SPECIALIST Office Visit [facility] [address] [place] [phone] [place] [address] [place] [address] [phone] Scheduled Referrals Name Type Priority Associated Diagnoses Orde r Schedule Adult GI Signals Analyst Referral - Consult Only Referral Routine: [...] 05/07/2022 05/07/2022 05/28/2022 11:3 9 PM YOUTH DEVELOPMENT SPECIALIST Assessment Noted Time PHQ-9 Depression Total Score: 16 022 9:05 AM CDT documented as of this encounter Care Teams Paste Maker Relationship Specialty Start Date End Date Shankar Peñaloza MD [address] [place] [address] [place] [address] PCP - General Internal Medicine 09/25/13 Navdeep Waldron MD [facility] [address] [place] [address] Physical Medicine & Rehabilitation - Pain Medicine 07/07/13 Shankar Peñaloza MD [address] [place] [address] [place] [address] Assigned PCP 07/22/16 Capri Gant OD [address] [place] [address] [place] [address] Assigned Surgical Provider 04/29/21 05/31/22 Leeanna Joe MD [address] [place] [address] Assigned Rheumatology Provider 04/22/21 10/18/22 Richardson Alberts PA-C [address] [place] [address] Physician Wafer Fabricator Gastroenterology 03/01/22 Shankar Peñaloza MD [address] [place] [address] [place] [address] Assigned Pain Medication Provider 06/17/22 Marielena Sunshine PA-C [address] [facility] [address] [place] [address] Physician Wafer Fabricator Urology 10/03/22 Radha Rivas Personal Advocate & Liaison (PAL) 11/26/22 Marielena Sunshine PA-C [address] [facility] 500 [place] [address] Assigned Surgical Provider 12/07/22 Job Jaramillo LICSW [address] [place] [address] Ms Sql Server Developer Ms Sql Server Developer - Clinical 06/23/23 documented as of this encounter
--- OUTSIDE RECORDS SUMMARY | 2023-07-07 10:34 | XMS_ITS | Encounter Summary ---
Author Name Unknown Organization [place] Address [address] [place] [address] Care Team Providers Care Section Hand Name Role Phone Navdeep Waldron MD Unavailable [phone] Shankar Peñaloza MD Primary Care Provider [phone] Shankar Peñaloza MD Unavailable [phone] Capri Gant OD Unavailable Leeanna Joe MD Unavailable Richardson AlbertsC Unavailable [phone] Shankar Peñaloza MD Unavailable [phone] Marielena Sunshine PA-C Unavailable Radha Rivas Unavailable Unavailable Marielena Sunshine PA-C Unavailable Job Jaramillo Unavailable [phone] Encounter Details Date Type Department Care Team (Late st Contact Info) Description 05/07/2022 Marco Antonio Feliz [facility] [place] [address] [place] [address] Shankar Peñaloza MD [address] [facility] [place] [address] Social History [...] Coronavirus/COVID-19? No / Unsure 04/15/2022 9:34 AM HORTICULTURAL NURSERY ASSISTANT documented as of this encounter Plan of Treatment Upcoming Encounters Date Type Department Care Team (Late st Contact Info) Description 07/16/2023 3:30 PM HORTICULTURAL NURSERY ASSISTANT Office Visit [place] [address] [place] [address] Shankar Peñaloza MD [address] [facility] [place] [address] 2023 3:00 PM HORTICULTURAL NURSERY ASSISTANT Virtual Visit [facility] [address] [place] [address] Job Jaramillo, [facility] [address] [place], [place] [id number] 08/13/2023 2:30 PM HORTICULTURAL NURSERY ASSISTANT Office Visit [facility] [address] [place] [address] [place] [address] [place] [address] documented as of this encounter Visit Diagnoses Not on filedocumented in this encounter Additional Health Concerns Infection Onset Date Last Indicated Resolved Time COVID-19 05/07/2022 05/07/2022 05/28/2022 11:3 9 PM HORTICULTURAL NURSERY ASSISTANT Assessment Noted Time PHQ-9 Depression Total Score: 13 022 10:38 AM CDT documented as of this encounter Care Teams Section Hand Relationship Specialty Start Date End Date Shankar Peñaloza MD [address] [place] [address] [place] [address] PCP - General Internal Medicine 09/25/13 Navdeep Waldron MD [facility] [address] [place] [address] Physical Medicine & Rehabilitation - Pain Medicine 07/07/13 Shankar Peñaloza MD [address] [place] [address] [place] [address] Assigned PCP 07/22/16 Capri Gant OD [address] [place] [address] [place] [address] Assigned Surgical Provider 04/29/21 05/31/22 Leeanna Joe MD [address] [place] [address] Assigned Rheumatology Provider 04/22/21 10/18/22 Richardson Alberts PA-C [address] [place] [address] Physician Vamp Marker Gastroenterology 03/01/22 Shankar Peñaloza MD [address] [place] [address] [place] [address] Assigned Pain Medication Provider 06/17/22 Marielena Sunshine PA-C [facility] [address] [place] [address] Physician Vamp Marker Urology 10/03/22 Radha Rivas Personal Advocate & Liaison (PAL) 11/26/22 Marielena Sunshine PA-C [address] [facility] 500 [place] [address] Assigned Surgical Provider 12/07/22 Job Jaramillo LICSW [address] [place] [address] Dye Weigher Helper Dye Weigher Helper - Clinical 06/23/23 documented as of this encounter
--- OUTSIDE RECORDS SUMMARY | 2023-07-07 10:34 | XMS_ITS | Encounter Summary ---
Author Name Unknown Organization [place] Address [facility] [place] [address] Care Team Providers Care Internal Controls Consultant Name Role Phone Navdeep Waldron MD Unavailable [phone] Shankar Peñaloza MD Primary Care Provider Shankar Peñaloza MD Unavailable [phone] Capri Gant OD Unavailable Leeanna Joe MD Unavailable Richardson Alberts PA-C Unavailable [phone] Shankar Peñaloza MD Unavailable [phone] Marielena Sunshine PA-C Unavailable Radha Rivas Unavailable Unavailable Marielena Sunshine PA-C Unavailable Job Jaramillo Unavailable [phone] Reason for Visit * Reason Comments Medication Refill Encounter Details Date Type Department Care Team (Late st Contact Info) Description 05/22/2022 Refill M [facility] [place] [address] [place] [address] Keli Barrios MD [address] [place] [address] Medication Refill Social History Tobacco Use Types [...] to have Coronavirus/COVID-19? Yes 05/18/2022 12:40 PM MENTAL HEALTH NURSE documented as of this encounter Plan of Treatment Upcoming Encounters Date Type Department Care Team (Late st Contact Info) Description 07/16/2023 3:30 PM MENTAL HEALTH NURSE Office Visit [facility] [place] [address] [place] [address] Drive [address] [place] [phone] Shankar Peñaloza MD [address] [place] [address] [place] [address] 2023 3:00 PM MENTAL HEALTH NURSE Virtual Visit [facility] Addiction [facility] [address] [place] [address] Job Jaramillo, [address] [address] 08/13/2023 2:30 PM MENTAL HEALTH NURSE Office Visit [facility] [address] [place] [address] [place] [address] [place] [address] documented as of this encounter Visit Diagnoses Diagnosis Infection due to 2019 novel coronavirus Nausea and vomiting in adult Nausea with vomiting Epigastric pain Abdominal pain, epigastric documented in this encounter Additional Health Concerns Infection Onset Date Last Indicated Resolved Time COVID-19 05/07/2022 05/07/2022 05/28/2022 11:3 9 PM MENTAL HEALTH NURSE Assessment Noted Time PHQ-9 Depression Total Score: 13 022 10:38 AM CDT documented as of this encounter Care Teams Internal Controls Consultant Relationship Specialty Start Date End Date Shankar Peñaloza MD [address] [place] [address] [place] [address] PCP - General Internal Medicine 09/25/13 Navdeep Waldron MD [facility] [address] [place] [address] Physical Medicine & Rehabilitation - Pain Medicine 07/07/13 Shankar Peñaloza MD [address] [place] [address] [place] [address] Assigned PCP 07/22/16 Capri Gant OD [address] [place] [address] [place] [address] Assigned Surgical Provider 04/29/21 05/31/22 Leeanna Joe MD [address] [place] [address] Assigned Rheumatology Provider 04/22/21 10/18/22 Richardson Alberts PA-C [address] [place] [address] Physician Film Librarian Gastroenterology 03/01/22 Shankar Peñaloza MD [address] [place] [address] [place] [address] Assigned Pain Medication Provider 06/17/22 Marielena Sunshine PA-C [address] [place] [address] Physician Film Librarian Urology 10/03/22 Radha Rivas Personal Advocate & Liaison (PAL) 11/26/22 Marielena Sunshine PA-C [address] [place] [address] Assigned Surgical Provider 12/07/22 Job Jaramillo LICSW [address] [place] [address] Dish Up Person Dish Up Person - Clinical 06/23/23 documented as of this encounter
--- OUTSIDE RECORDS SUMMARY | 2023-07-07 10:34 | XMS_ITS | Encounter Summary ---
Author Name Unknown Organization [place] Address [facility] [place] [address] Care Team Providers Care Spring Bender Name Role Phone Navdeep Waldron MD Unavailable [phone] Shankar Peñaloza MD Primary Care Provider Shankar Peñaloza MD Unavailable [phone] Capri Gant OD Unavailable Leeanna Joe MD Unavailable Richardson Alberts PA-C Unavailable [phone] Shankar Peñaloza MD Unavailable [phone] Marielena Sunshine PA-C Unavailable Radha Rivas Unavailable Unavailable Marielena Sunshine PA-C Unavailable Job Jaramillo Unavailable Reason for Visit * Reason Comments Medication Refill Encounter Details Date Type Department Care Team (Late st Contact Info) Description 05/20/2022 Refill M [facility] [place] [address] [place] [address] Keli Barrios MD [address] [place] [address] Medication Refill Social History Tobacco Use Types [...] to have Coronavirus/COVID-19? Yes 05/18/2022 12:40 PM FUEL TESTING TECHNICIAN documented as of this encounter Plan of Treatment Upcoming Encounters Date Type Department Care Team (Late st Contact Info) Description 07/16/2023 3:30 PM FUEL TESTING TECHNICIAN Office Visit [facility] [place] [address] [place] [address] [address] [place] [phone] Shankar Peñaloza MD [address] [place] [address] [place] [address] 2023 3:00 PM FUEL TESTING TECHNICIAN Virtual Visit [facility] [address] [place] [address] Job Jaramillo, [address] [address] 08/13/2023 2:30 PM FUEL TESTING TECHNICIAN Office Visit [facility] [address] [place] [address] [place] [address] [place] [address] documented as of this encounter Visit Diagnoses Diagnosis Infection due to 2019 novel coronavirus Nausea and vomiting in adult Nausea with vomiting Epigastric pain Abdominal pain, epigastric documented in this encounter Additional Health Concerns Infection Onset Date Last Indicated Resolved Time COVID-19 05/07/2022 05/07/2022 05/28/2022 11:3 9 PM FUEL TESTING TECHNICIAN Assessment Noted Time PHQ-9 Depression Total Score: 13 022 10:38 AM CDT documented as of this encounter Care Teams Spring Bender Relationship Specialty Start Date End Date Shankar Peñaloza MD [address] [place] [address] [place] [address] PCP - General Internal Medicine 09/25/13 Navdeep Waldron MD [facility] [address] [place] [address] Physical Medicine & Rehabilitation - Pain Medicine 07/07/13 Shankar Peñaloza MD [address] [place] [address] [place] [address] Assigned PCP 07/22/16 Capri Gant OD [address] [place] [address] [place] [address] Assigned Surgical Provider 04/29/21 05/31/22 Leeanna Joe MD [address] [place] [address] Assigned Rheumatology Provider 04/22/21 10/18/22 Richardson Alberts PA-C [address] [place] [address] Physician Manufacturing Assistant Gastroenterology 03/01/22 Shankar Peñaloza MD [address] [place] [address] [place] [address] Assigned Pain Medication Provider 06/17/22 Marielena Sunshine PA-C [address] [place] [address] Physician Manufacturing Assistant Urology 10/03/22 Radha Rivas Personal Advocate & Liaison (PAL) 11/26/22 Marielena Sunshine PA-C [address] [place] [address] Assigned Surgical Provider 12/07/22 Job Jaramillo LICSW [address] [place] [address] Horticulturalist Horticulturalist - Clinical 06/23/23 documented as of this encounter
--- OUTSIDE RECORDS SUMMARY | 2023-07-07 10:34 | XMS_ITS | Encounter Summary ---
Author Name Unknown Organization [place] Address [address] [place] [address] Care Team Providers Care Firearms Assembly Supervisor Name Role Phone Navdeep Waldron MD Unavailable [phone] Shankar Peñaloza MD Primary Care Provider Shankar Peñaloza MD Unavailable [phone] Capri Gant OD Unavailable Leeanna Joe MD Unavailable Richardson Alberts PA-C Unavailable [phone] Shankar Peñaloza MD Unavailable [phone] Marielena Sunshine PA-C Unavailable [phone] Radha Rivas Unavailable Unavailable Marielena Sunshine PA-C Unavailable Job Jaramillo Unavailable Encounter Details Date Type Department Care Team (Latest Contact Info) Description 02/20/2022 Marco Antonio Feliz [facility] [place] [address] [place] [address] Shankar Peñaloza MD [address] [facility] [place] [address] Gastroesophageal reflux disease [...] st Contact Info) Description 07/16/2023 3:30 PM ADMINISTRATIVE OFFICER Office [facility] [address] [place] [address] Drive [address] [place] [phone] Shankar Peñaloza MD [address] [place] [address] [place] [address] 2023 3:00 PM ADMINISTRATIVE OFFICER Virtual Visit [facility] [address] [place] [address] Job Jaramillo, [address] [id number] 08/13/2023 2:30 PM ADMINISTRATIVE OFFICER Office Visit [facility] [address] [place] [address] [place] [address] [place] [address] documented as of this encounter Visit Diagnoses Diagnosis Gastroesophageal reflux disease without esophagitis- Primary Esophageal reflux Fibromyalgia Mylagia and myositis, unspecified documented in this encounter Additional Health Concerns Infection Onset Date Last Indicated Resolved Time COVID-19 05/07/2022 05/07/2022 05/28/2022 11:3 9 PM ADMINISTRATIVE OFFICER Assessment Noted Time PHQ-9 Depression Total Score: 16 022 9:05 AM CDT documented as of this encounter Care Teams Firearms Assembly Supervisor Relationship Specialty Start Date End Date Shankar Peñaloza MD [address] [place] [address] [place] [address] PCP - General Internal Medicine 09/25/13 Navdeep Waldron MD [facility] [address] [place] [address] Physical Medicine & Rehabilitation - Pain Medicine 07/07/13 Shankar Peñaloza MD [address] [place] [address] [place] [address] Assigned PCP 07/22/16 Capri Gant OD [address] [place] [address] [place] [address] Assigned Surgical Provider 04/29/21 05/31/22 Leeanna Joe MD [address] [place] [address] Assigned Rheumatology Provider 04/22/21 10/18/22 Richardson Alberts PA-C [address] [place] [address] Physician Grain Sampler Gastroenterology 03/01/22 Shankar Peñaloza MD [address] [place] [address] [place] [address] Assigned Pain Medication Provider 06/17/22 Marielena Sunshine PA-C [address] [place] [address] Physician Grain Sampler Urology 10/03/22 Radha Rivas Personal Advocate & Liaison (PAL) 11/26/22 Marielena Sunshine PA-C [address] [facility] [address] [place] [address] Assigned Surgical Provider 12/07/22 Job Jaramillo LICSW [address] [place] [address] Regulated Program Manager Regulated Program Manager - Clinical 06/23/23 documented as of this encounter
--- OUTSIDE RECORDS SUMMARY | 2023-07-07 10:34 | XMS_ITS | Encounter Summary ---
Author Name Unknown Organization [place] Address [address] [place] [address] Care Team Providers Care Salesperson Trailers [employer] Motor [employer] Name Role Phone Navdeep Waldron MD Unavailable [phone] Shankar Peñaloza MD Primary Care Provider [phone] Shankar Peñaloza MD Unavailable [phone] Capri Gant OD Unavailable Leeanna Joe MD Unavailable Richardson AlbertsC Unavailable [phone] Shankar Peñaloza MD Unavailable [phone] Marielena Sunshine PA-C Unavailable Radha Rivas Unavailable Unavailable Marielena Sunshine PA-C Unavailable Job Jaramillo Unavailable Encounter Details Date Type Department Care Team (Late st Contact Info) Description 05/08/2021 Marco Antonio Feliz [facility] [address] [place] [address] [place] [address] Shankar Peñaloza MD [address] [facility] [place] [address] Social History Tobacco [...] COVID-19? No / Unsure 05/02/2021 3:27 PM VICE PRESIDENT TAX documented as of this encounter Plan of Treatment Upcoming Encounters Date Type Department Care Team (Late st Contact Info) Description 07/16/2023 3:30 PM VICE PRESIDENT TAX Office Visit [place] [address] [facility] [address] [place] [address] Shankar Peñaloza MD [address] [facility] [place] [address] 2023 3:00 PM VICE PRESIDENT TAX Virtual Visit [facility] [address] [place] [address] Job Jaramillo, [facility] [address] [place], [place] [id number] 08/13/2023 2:30 PM VICE PRESIDENT TAX Office Visit [facility] [address] [place] [address] [place] [address] [place] [address] documented as of this encounter Visit Diagnoses Not on filedocumented in this encounter Additional Health Concerns Infection Onset Date Last Indicated Resolved Time COVID-19 05/07/2022 05/07/2022 05/28/2022 11:3 9 PM VICE PRESIDENT TAX Assessment Noted Time PHQ-9 Depression Total Score: 18 021 7:30 AM VICE PRESIDENT TAX documented as of this encounter Care Teams Salesperson [employer] Relationship Specialty Start Date End Date Shankar Peñaloza MD [address] [place] [address] [place] [address] PCP - General Internal Medicine 09/25/13 Navdeep Waldron MD [facility] [address] [place] [address] Physical Medicine & Rehabilitation - Pain Medicine 07/07/13 Shankar Peñaloza MD [address] [place] [address] [place] [address] Assigned PCP 07/22/16 Capri Gant OD [address] [place] [address] [place] [address] Assigned Surgical Provider 04/29/21 05/31/22 Leeanna Joe MD [address] [place] [address] Assigned Rheumatology Provider 04/22/21 10/18/22 Richardson Alberts PA-C [address] [place] [address] Physician Seismograph Chief Gastroenterology 03/01/22 Shankar Peñaloza MD [address] [place] [address] [place] [address] Assigned Pain Medication Provider 06/17/22 Marielena Sunshine PA-C [address] [facility] [address] [place] [address] Physician Seismograph Chief Urology 10/03/22 Radha Rivas Personal Advocate & Liaison (PAL) 11/26/22 Marielena Sunshine PA-C [address] [facility] [address] [place] [address] Assigned Surgical Provider 12/07/22 Job Jaramillo LICSW [address] [place] [address] Unit Reactor Operator Unit Reactor Operator - Clinical 06/23/23 documented as of this encounter
--- OUTSIDE RECORDS SUMMARY | 2023-07-07 10:34 | XMS_ITS | Encounter Summary ---
Author Name Unknown Organization [place] Address [address] [place] [address] Care Team Providers Care Lime Boiler Name Role Phone Navdeep Waldron MD Unavailable [phone] Shankar Peñaloza MD Primary Care Provider Shankar Peñaloza MD Unavailable [phone] Capri Gant OD Unavailable Leeanna Joe MD Unavailable Richardson Alberts-C Unavailable [phone] Shankar Peñaloza MD Unavailable [phone] Marielena Sunshine PA-C Unavailable Radha Rivas Unavailable Unavailable Marielena Sunshine PA-C Unavailable Job Jaramillo Unavailable [phone] Encounter Details Date Type Department Care Team (Late st Contact Info) Description 04/08/2022 Marco Antonio Feliz [facility] [place] [address] [place] [address] Shankar Peñaloza MD [address] [facility] [place] [address] Elevated serum creatinine (Primary [...] st Contact Info) Description 07/16/2023 3:30 PM PAVING PLANT OPERATOR [facility] [place] [phone] Shankar Peñ[place] [address] [place] [address] [place] LO[place] [address] 2023 3:00 PM PAVING PLANT OPERATOR Virtual Visit [facility] [address] [place] [address] Job Jaramillo, [address] [id number] 08/13/2023 2:30 PM PAVING PLANT OPERATOR Office Visit [facility] [address] [place] [address] [place] [address] [place] [address] documented as of this encounter [...] and gender (Joseph et al., NEJM, DOI: [id number]) Blood STRUCTURE OF RIGHT UPPER LIMB / Unknown Venipuncture / Unknown 04/11/2022 2:58 PM CDT 04/11/2022 2:58 PM CDT Shankar Peñaloza MD LAB - BLOOD ORDERABL ES OX LABORATORY [facility] [address] Lab (no room number, 1st floor of clinic) [place] [address], [facility] [phone] documented in this encounter Visit Diagnoses Diagnosis Elevated serum creatinine- Primary Other nonspecific findings on examination of blood documented in this encounter Additional Health Concerns Infection Onset Date Last Indicated Resolved Time COVID-19 05/07/2022 05/07/2022 05/28/2022 11:3 9 PM PAVING PLANT OPERATOR Assessment Noted Time PHQ-9 Depression Total Score: 13 04/08/ 022 10:38 AM CDT documented as of this encounter Care Teams Lime Boiler Relationship Specialty Start Date End Date Shankar Peñaloza MD [address] [place] [address] [place] [address] PCP - General Internal Medicine 09/25/13 Navdeep Waldron MD [facility] [address] [place] [address] Physical Medicine & Rehabilitation - Pain Medicine 07/07/13 Shankar Peñaloza MD [address] [place] [address] [place] [address] Assigned PCP 07/22/16 Carpi Gant OD [address] [place] [address] [place] [address] Assigned Surgical Provider 04/29/21 05/31/22 Leeanna Joe MD [address] [place] [address] Assigned Rheumatology Provider 04/22/21 10/18/22 Richardson Alberts PA-C [address] [place] [address] Physician Rn Orthopedic Gastroenterology 03/01/22 Shankar Peñaloza MD [address] [place] [address] [place] [address] Assigned Pain Medication Provider 06/17/22 Marielena Sunshine PA-C [address] [facility] [address] [place] [address] Physician Rn Orthopedic Urology 10/03/22 Radha Rivas Personal Advocate & Liaison (PAL) 11/26/22 Marielena Sunshine PA-C [address] [facility] [address] [place], [place] [address] Assigned Surgical Provider 12/07/22 Job Jaramillo LICSW [address] [place] [address] Roof Slater Roof Slater - Clinical 06/23/23 documented as of this encounter
--- OUTSIDE RECORDS SUMMARY | 2023-07-07 10:34 | XMS_ITS | Encounter Summary ---
Author Name Unknown Organization [place] Address [address] [place] [address] Care Team Providers Care Senior Category Manager Name Role Phone Navdeep Waldron MD Unavailable [phone] Shankar Peñaloza MD Primary Care Provider Shankar Peñaloza MD Unavailable [phone] Capri Gant OD Unavailable Leeanna Joe MD Unavailable Richardson Alberts PA-C Unavailable [phone] Shankar Peñaloza MD Unavailable [phone] Marielena Sunshine PA-C Unavailable Radha Rivas Unavailable Unavailable Marielena Sunshine PA-C Unavailable Job Jaramillo Unavailable Encounter Details Date Type Department Care Team (Late st Contact Info) Description 01/29/2021 Marco Antonio Medical Ciaarn Feliz [facility] Heart [address] [address] Susan Arriaga Social History Tobacco [...] Contact Info) Description 07/16/2023 3:30 PM CLERICAL ADMINISTRATIVE ASSISTANT Office Visit [place] [address] [place] [address] Shankar Peñaloza MD [address] [facility] [place] [address] 2023 3:00 PM CLERICAL ADMINISTRATIVE ASSISTANT Virtual Visit [facility] [address] [place] [address] Job Jaramillo, [facility] [address] [place] [address] 08/13/2023 2:30 PM CLERICAL ADMINISTRATIVE ASSISTANT Office Visit [facility] [address] [place] [phone] [place] [address] [place], [place] 8[address] documented as of this encounter Visit Diagnoses Not on filedocumented in this encounter Additional Health Concerns Infection Onset Date Last Indicated Resolved Time COVID-19 05/07/2022 05/07/2022 05/28/2022 11:3 9 PM CLERICAL ADMINISTRATIVE ASSISTANT Assessment Noted Time PHQ-9 Depression Total Score: 16 021 7:02 AM CDT documented as of this encounter Care Teams Senior Category Manager Relationship Specialty Start Date End Date Shankar Peñaloza MD [address] [place] [address] [place] [address] PCP - General Internal Medicine 09/25/13 aNvdeep Waldron MD [facility] [address] [place] [address] Physical Medicine & Rehabilitation - Pain Medicine 07/07/13 Shankar Peñaloza MD [address] [place] [address] [place] [address] Assigned PCP 07/22/16 Capri Gant OD [address] [place] [address] [place] [address] Assigned Surgical Provider 04/29/21 05/31/22 Leeanna Joe MD [address] [place], [place] [address] Assigned Rheumatology Provider 04/22/21 10/18/22 Richardson Alberts PA-C [address] [place] [address] Physician Rn Gyn Gastroenterology 03/01/22 Shankar Peñaloza MD [address] [place] [address] [place] [address] Assigned Pain Medication Provider 06/17/22 Marielena Sunshine PA-C [address] [facility] [address] [place] [address] Physician Rn Gyn Urology 10/03/22 Radha Rivas Personal Advocate & Liaison (PAL) 11/26/22 Marielena Sunshine PA-C [address] [address] Assigned Surgical Provider 12/07/22 Job Jaramillo LICSW [address] [place] [address] Cable Systems Installer Cable Systems Installer - Clinical 06/23/23 documented as of this encounter
--- OUTSIDE RECORDS SUMMARY | 2023-07-07 10:34 | XMS_ITS | Encounter Summary ---
Author Name Unknown Organization [place] Address [address] [place] [address] Care Team Providers Care Studio Associate Name Role Phone Navdeep Waldron MD Unavailable [phone] Shankar Peñaloza MD Primary Care Provider Shankar Peñaloza MD Unavailable [phone] Capri Gant OD Unavailable Leeanna Joe MD Unavailable Richardson Alberts PA-C Unavailable [phone] Shankar Peñaloza MD Unavailable [phone] Marielena Sunshine PA-C Unavailable Radha Rivas Unavailable Unavailable Marielena Sunshine PA-C Unavailable Job Jaramillo Unavailable Encounter Details Date Type Department Care Team (Late st Contact Info) Description 01/06/2021 [facility] [place] [phone] Ana Michele Social History Tobacco Use Types [...] Contact Info) Description 07/16/2023 3:30 PM DIRECTOR NURSERY SCHOOL Office Visit [address] [place] [address] Shankar Peñaloza MD [address] [facility] [place] [address] 2023 3:00 PM DIRECTOR NURSERY SCHOOL Virtual Visit [facility] [address] [place] [address] Job Jaramillo, [facility] [address] [place] [address] 08/13/2023 2:30 PM DIRECTOR NURSERY SCHOOL Office Visit [facility] [address] [place] [phone] [place] [address] [place], [place] 9[address] documented as of this encounter Visit Diagnoses Not on filedocumented in this encounter Additional Health Concerns Infection Onset Date Last Indicated Resolved Time COVID-19 05/07/2022 05/07/2022 05/28/2022 11:3 9 PM DIRECTOR NURSERY SCHOOL Assessment Noted Time PHQ-9 Depression Total Score: 16 021 7:02 AM CDT documented as of this encounter Care Teams Studio Associate Relationship Specialty Start Date End Date Shankar Peñaloza MD [address] [place] [address] [place] [address] PCP - General Internal Medicine 09/25/13 Navdeep Waldron MD [facility] [address] [place] [address] Physical Medicine & Rehabilitation - Pain Medicine 07/07/13 Shankar Peñaloza MD [address] [place] [address] [place] [address] Assigned PCP 07/22/16 Capri Gant OD [address] [place] [address] [place] [address] Assigned Surgical Provider 04/29/21 05/31/22 Leeanna Joe MD 400 [place], [place] [address] Assigned Rheumatology Provider 04/22/21 10/18/22 Richardson Alberts PA-C [address] [place] [address] Physician Sprinkler Fitter Helper Gastroenterology 03/01/22 Shankar Peñaloza MD [address] [place] [address] [place] [address] Assigned Pain Medication Provider 06/17/22 Marielena Sunshine PA-C [address] [facility] [address] [place] [address] Physician Sprinkler Fitter Helper Urology 10/03/22 Radha Rivas Personal Advocate & Liaison (PAL) 11/26/22 Marielena Sunshine PA-C [address] [address] Assigned Surgical Provider 12/07/22 Job Jaramillo LICSW [address] [place] [address] Insurance Application Investigator Insurance Application Investigator - Clinical 06/23/23 documented as of this encounter
--- OUTSIDE RECORDS SUMMARY | 2023-07-07 10:34 | XMS_ITS | Encounter Summary ---
Author Name Unknown Organization [place] Address [address] [place] [address] Care Team Providers Care Balloon Pilot Name Role Phone Navdeep Waldron MD Unavailable [phone] Shankar Peñaloza MD Primary Care Provider Shankar Peñaloza MD Unavailable [phone] Capri Gant OD Unavailable [phone] Leeanna Joe MD Unavailable Richardson Alberts PA-C Unavailable [phone] Shankar Peñaloza MD Unavailable [phone] Marielena Sunshine PA-C Unavailable Radha Rivas Unavailable Unavailable Marielnea Sunhsine PA-C Unavailable Job Jaramillo Unavailable Reason for Visit * Reason Onset Date Comments Refill Request 10/15/2021 Encounter Details Date Type Department Care Team (Late st Contact Info) Description 10/15/2021 Marco Antonio Feliz [facility] [address] [facility] [address] [place] [address] Suzi Purvis MD [address] [place] [address] Refill Request Social History Tobacco Use Types [...] st Contact Info) Description 07/16/2023 3:30 PM DEPUTY MANAGER Office Visit [facility] [place] [address] [place] [address] Shankar Peñaloza MD [address] [facility] [place] [address] 2023 3:00 PM DEPUTY MANAGER Virtual Visit [facility] and Addiction [address] [place] [address] Job Jaramillo, [facility] [address] [place] [address] 08/13/2023 2:30 PM DEPUTY MANAGER Office Visit [facility] [address] [place] [phone] [place] Tracey [place] [address] [place] [address] documented as of this encounter Visit Diagnoses Diagnosis Fibromyalgia Mylagia and myositis, unspecified documented in this encounter Additional Health Concerns Infection Onset Date Last Indicated Resolved Time COVID-19 05/07/2022 05/07/2022 05/28/2022 11:3 9 PM DEPUTY MANAGER Assessment Noted Time PHQ-9 Depression Total Score: 17 022 7:02 AM DEPUTY MANAGER documented as of this encounter Care Teams Balloon Pilot Relationship Specialty Start Date End Date Shankar Peñaloza MD [address] [place] [address] [place] [address] PCP - General Internal Medicine 09/25/13 Navdeep Waldron MD [facility] [address] [place] [address] Physical Medicine & Rehabilitation - Pain Medicine 07/07/13 Shankar Peñaloza MD [address] [place] [address] [place] [address] Assigned PCP 07/22/16 Capri Gant OD [address] [place] [address] [place] [address] Assigned Surgical Provider 04/29/21 05/31/22 Leeanna Joe MD [address] [place] [address] Assigned Rheumatology Provider 04/22/21 10/18/22 Richardson Alberts PA-C [address] [facility] [place] [address] Physician Alterations Workroom Clerk Gastroenterology 03/01/22 Shankar Peñaloza MD [address] [place] [address] [place] [address] Assigned Pain Medication Provider 06/17/22 Marielena Sunshine PA-C [address] [facility] [address] [place] [address] Physician Alterations Workroom Clerk Urology 10/03/22 Radha Rivas Personal Advocate & Liaison (PAL) 11/26/22 Marielena Sunshine PA-C [address] [facility] 500 [place], [place] [address] Assigned Surgical Provider 12/07/22 Job Jaramillo LICSW [address] [address] Ambulance Dispatcher Ambulance Dispatcher - Clinical 06/23/23 documented as of this encounter
--- OUTSIDE RECORDS SUMMARY | 2023-07-07 10:34 | XMS_ITS | Encounter Summary ---
Author Name Unknown Organization [place] Address [address] [place] [address]. [place] [address] Care Team Providers Care Supervisor Motor Vehicle Assembly Name Role Phone Navdeep Waldron MD Unavailable [phone] Shankar Peñaloza MD Primary Care Provider [phone] Shankar Peñaloza MD Unavailable [phone] Capri Gant OD Unavailable [phone] Leeanna Joe MD Unavailable Richardson Alberts PAGerardC Unavailable [phone] Shankar Peñaloza MD Unavailable [phone] Marielena Sunshine PA-C Unavailable [phone] Radha Rivas Unavailable Unavailable Marielena Sunshine PA-C Unavailable Job Jaramillo Unavailable Encounter Details Date Type Department Care Team (Late st Contact Info) Description 04/09/2022 [facility] [address] [place] [address] Drew Barr Social History Tobacco Use [...] st Contact Info) Description 07/16/2023 3:30 PM FLAME ANNEALING MACHINE OPERATOR Office Visit [address] [place] [address] Shankar Peñaloza MD [address] [facility] [place] [address] 2023 3:00 PM FLAME ANNEALING MACHINE OPERATOR Virtual Visit [facility] [address] [place] [address] Job Jaramillo, [address] [address] 08/13/2023 2:30 PM FLAME ANNEALING MACHINE OPERATOR Office Visit [facility] [address] [place] [address] [place] [address] [place], [place] [address] documented as of this encounter Visit Diagnoses Not on filedocumented in this encounter Additional Health Concerns Infection Onset Date Last Indicated Resolved Time COVID-19 05/07/2022 05/07/2022 05/28/2022 11:3 9 PM FLAME ANNEALING MACHINE OPERATOR Assessment Noted Time PHQ-9 Depression Total Score: 13 022 10:38 AM CDT documented as of this encounter Care Teams Supervisor Motor Vehicle Assembly Relationship Specialty Start Date End Date Shankar Peñaloza MD [address] [place] [address] [place] [address] PCP - General Internal Medicine 09/25/13 Navdeep Waldron MD [facility] [address] [place] [address] Physical Medicine & Rehabilitation - Pain Medicine 07/07/13 Shankar Peñaloza MD [address] [place] [address] [place] [address] Assigned PCP 07/22/16 Capri Gant OD [address] [place] [address] [place] [address] Assigned Surgical Provider 04/29/21 05/31/22 Leeanna Joe MD 400 [place], [place] [address] Assigned Rheumatology Provider 04/22/21 10/18/22 Richardson Alberts PA-C [address] [place] [address] Physician Top Polisher Gastroenterology 03/01/22 Shankar Peñaloza MD [address] [place] [address] [place] [address] Assigned Pain Medication Provider 06/17/22 Marielena Sunshine PA-C [address] [facility] [address] [place] [address] Physician Top Polisher Urology 10/03/22 Radha Rivas Personal Advocate & Liaison (PAL) 11/26/22 Marielena Sunshine PA-C [address] [address] Assigned Surgical Provider 12/07/22 Job Jaramillo LICSW [address] [place] [address] Plant Attendant Or Assistant Operator Plant Attendant Or Assistant Operator - Clinical 06/23/23 documented as of this encounter
--- OUTSIDE RECORDS SUMMARY | 2023-07-07 10:34 | XMS_ITS | Encounter Summary ---
Author Name Unknown Organization [place] Address [address] [place] [address] Care Team Providers Care Biology Tutor Name Role Phone Navdeep Waldron MD Unavailable [phone] Shankar Peñaloza MD Primary Care Provider [phone] Shankar Peñaloza MD Unavailable [phone] Capri Gant OD Unavailable Leeanna Joe MD Unavailable Richardson Alberts-C Unavailable [phone] Shankar Peñaloza MD Unavailable [phone] Marielena Sunshine PA-C Unavailable Radha Rivas Unavailable Unavailable Marielena Sunshine PA-C Unavailable Job Jaramillo Unavailable [phone] Encounter Details Date Type Department Care Team (Late st Contact Info) Description 03/04/2022 Marco Antonio Feliz [facility] [place] [address] [place] [address] Shankar Peñaloza MD [address] [facility] [place] [address] Social History Tobacco [...] st Contact Info) Description 07/16/2023 3:30 PM QUANTOMETER OPERATOR Office Visit [place] [address] [place] [address] Shankar Peñaloza MD [address] [facility] [place] [address] 2023 3:00 PM QUANTOMETER OPERATOR Virtual Visit [facility] [address] [place] [address] Job Jaramillo, [facility] [address] [place], [place] [address] 08/13/2023 2:30 PM QUANTOMETER OPERATOR Office Visit [facility] [address] [place] [address] [place] [address] [place] [address] documented as of this encounter Visit Diagnoses Not on filedocumented in this encounter Additional Health Concerns Infection Onset Date Last Indicated Resolved Time COVID-19 05/07/2022 05/07/2022 05/28/2022 11:3 9 PM QUANTOMETER OPERATOR Assessment Noted Time PHQ-9 Depression Total Score: 16 022 9:05 AM CDT documented as of this encounter Care Teams Biology Tutor Relationship Specialty Start Date End Date Shankar Peñaloza MD [address] [place] [address] [place] [address] PCP - General Internal Medicine 09/25/13 Navdeep Waldron MD [facility] [address] [place] [address] Physical Medicine & Rehabilitation - Pain Medicine 07/07/13 Shankar Peñaloza MD [address] [place] [address] [place] [address] Assigned PCP 07/22/16 Capri Gant OD [address] [place] [address] [place] [address] Assigned Surgical Provider 04/29/21 05/31/22 Leeanna Joe MD [address] [place] [address] Assigned Rheumatology Provider 04/22/21 10/18/22 Richardson Alberts PA-C [address] [place] [address] Physician Blade Boner Gastroenterology 03/01/22 Shankar Peñaloza MD [address] [place] [address] [place] [address] Assigned Pain Medication Provider 06/17/22 Marielena Sunshine PA-C [facility] [address] [place] [address] Physician Blade Boner Urology 10/03/22 Radha Rivas Personal Advocate & Liaison (PAL) 11/26/22 Marielena Sunshine PA-C [address] [facility] 500 [place] [address] Assigned Surgical Provider 12/07/22 Job Jaramillo LICSW [address] [place] [address] Technology Lead Technology Lead - Clinical 06/23/23 documented as of this encounter
--- OUTSIDE RECORDS SUMMARY | 2023-07-07 10:34 | XMS_ITS | Encounter Summary ---
Author Name Unknown Organization [facility] Address [address] [place] [address] Care Team Providers Care Electrician Crane Maintenance Name Role Phone Navdeep Waldron MD Unavailable [phone] Shankar Peñaloza MD Primary Care Provider Shankar Peñaloza MD Unavailable [phone] Capri Gant OD Unavailable [phone] Leenana Joe MD Unavailable Richardson Alberts PA-C Unavailable [phone] Shankar Peñaloza MD Unavailable [phone] Marielena Sunshine PA-C Unavailable Radha Rivas Unavailable Unavailable Marielena Sunshine PA-C Unavailable Job Jaramillo Unavailable [phone] Encounter Details Date Type Department Care Team (Late st Contact Info) Description 06/12/2021 Marco Antonio Feliz [facility] [address] [place] [phone] Capri Loyola, DIRECTOR OF GIFT PLANNING [address] [facility] [place] [address] Social History Tobacco Use [...] COVID-19? No / Unsure 06/05/2021 11:03 AM PULP ROLLER documented as of this encounter Plan of Treatment Upcoming Encounters Date Type Department Care Team (Late st Contact Info) Description 07/16/2023 3:30 PM PULP ROLLER Office Visit [place] [id number] [place] [address] Shankar Peñaloza MD [address] [facility] [place] [address] 2023 3:00 PM PULP ROLLER Virtual Visit [facility] [address] [place] [address] Job Jaramillo, [facility] [address] [place], [place] [id number] 08/13/2023 2:30 PM PULP ROLLER Office Visit [facility] [address] [place] [address] [place] [address] [place] [address] documented as of this encounter Visit Diagnoses Not on filedocumented in this encounter Additional Health Concerns Infection Onset Date Last Indicated Resolved Time COVID-19 05/07/2022 05/07/2022 05/28/2022 11:3 9 PM PULP ROLLER Assessment Noted Time PHQ-9 Depression Total Score: 17 022 7:02 AM PULP ROLLER documented as of this encounter Care Teams Electrician Crane Maintenance Relationship Specialty Start Date End Date Shankar Peñaloza MD [address] [place] [address] [place] [address] PCP - General Internal Medicine 09/25/13 Navdeep Waldron MD [facility] [address] [place] [address] Physical Medicine & Rehabilitation - Pain Medicine 07/07/13 Shankar Peñaloza MD [address] [place] [address] [place] [address] Assigned PCP 07/22/16 Capri Gant OD [address] [place] [address] [place] [address] Assigned Surgical Provider 04/29/21 05/31/22 Leeanna Joe MD [address] [place] [address] Assigned Rheumatology Provider 04/22/21 10/18/22 Richardson Alberts PA-C [address] [place] [address] Physician Inpatient Auditor Gastroenterology 03/01/22 Shankar Peñaloza MD [address] [place] [address] [place] [address] Assigned Pain Medication Provider 06/17/22 Marielena Sunshine PA-C [address] [facility] [address] [place] [address] Physician Inpatient Auditor Urology 10/03/22 Radha Rivas Personal Advocate & Liaison (PAL) 11/26/22 Marielena Sunshine PA-C [address] [facility] [address] [place] [address] Assigned Surgical Provider 12/07/22 Job Jaramillo LICSW [address] [place] [address] Warehouse Helper Warehouse Helper - Clinical 06/23/23 documented as of this encounter
--- OUTSIDE RECORDS SUMMARY | 2023-07-07 10:34 | XMS_ITS | Encounter Summary ---
Author Name Unknown Organization [place] Address [address] [place] [address] Care Team Providers Care Purchasing/Receiving Name Role Phone Navdeep Waldron MD Unavailable [phone] Shankar Peñaloza MD Primary Care Provider [phone] Shankar Peñaloza MD Unavailable [phone] Capri Gant OD Unavailable Leeanna Joe MD Unavailable Richardson AlbertsC Unavailable [phone] Shankar Peñaloza MD Unavailable [phone] Marielena Sunshine PA-C Unavailable [phone] Radha Rivas Unavailable Unavailable Marielena Sunshine PA-C [...] st Contact Info) Description 07/16/2023 3:30 PM DENTAL EQUIPMENT INSTALLER AND SERVICER Office Visit [facility] [address] [place] [address] Shankar Peñaloza MD [address] [place] [address] [place] [address] 2023 3:00 PM DENTAL EQUIPMENT INSTALLER AND SERVICER Virtual Visit [facility] [address] [place] [address] SinyishariyaCampose, [facility] [address] [place], [place] [id number] 08/13/2023 2:30 PM DENTAL EQUIPMENT INSTALLER AND SERVICER Office Visit [facility] [address] [place] [phone] [place] [address] [place] [phone] documented as of this encounter Visit Diagnoses Not on filedocumented in this encounter Additional Health Concerns Infection Onset Date Last Indicated Resolved Time COVID-19 05/07/2022 05/07/2022 05/28/2022 11:3 9 PM DENTAL EQUIPMENT INSTALLER AND SERVICER Assessment Noted Time PHQ-9 Depression Total Score: 16 021 7:02 AM CDT documented as of this encounter Care Teams Purchasing/Receiving Relationship Specialty Start Date End Date Shankar Peñaloza MD [address] [place] [address] [place] [address] PCP - General Internal Medicine 09/25/13 Navdeep Waldron MD [facility] [address] [place] [address] Physical Medicine & Rehabilitation - Pain Medicine 07/07/13 Shankar Peñaloza MD [address] [place] [address] [place] [address] Assigned PCP 07/22/16 Capri Gant OD [address] [place] [address] [place] [address] Assigned Surgical Provider 04/29/21 05/31/22 Leeanna Joe MD [address] [place] [address] Assigned Rheumatology Provider 04/22/21 10/18/22 Richardson Alberts PA-C [address] [place] [address] Physician Negative Stripper Gastroenterology 03/01/22 Shankar Peñaloza MD [address] [place] [address] [place] [address] Assigned Pain Medication Provider 06/17/22 Marielena Sunshine PA-C [address] [facility] [address] [place] [address] Physician Negative Stripper Urology 10/03/22 Radha Rivas Personal Advocate & Liaison (PAL) 11/26/22 Marielena Sunshine PA-C [address] [place] [address] [place] [address] Assigned Surgical Provider 12/07/22 Job Jaramillo LICSW [address] [place] [address] Construction Site Manager Construction Site Manager - Clinical 06/23/23 documented as of this encounter
--- OUTSIDE RECORDS SUMMARY | 2023-07-07 10:35 | XMS_ITS | Continuity of Care Document ---
Author Name Unknown Organization [facility] Address [address] [facility] [address] [place] [address] Phone Care Team Providers Care Weatherization Administrator Name Role Phone Laya BERNAL, Bc Unavailable [...] Comments Panel Description: Urinalysis, Routine Final Specific Mobile 07:13: 00 1.017 1.005-1.03 0 Final pH [...] 00 <9.0 U/mL 0.0-9.0 Final Antiproteinase 3 (FL-3) Abs 09:09: 00 <3.5 U/mL 0.0-3.5 Final [...] follow up testing ofpositive sera with both FL-3 and MPO-ANCA enzyme immunoassays. Asmany as 5% [...] Eq uivocal 5 - 9 Positive >9 [facility] ASSISTED LIVING Antibodies 09:09: 00 0.2 AI 0.0-0.9 Final [...] High titers - SLE(Smooth) Histone --------Speckled Sm, PCA ASSISTED LIVING, SCL-70, SLE,MCTD,Scleroderma, Sjogrens SS-A/SS-B --------Nucleolar SCL-70, PM-1/SCL [...] Consultants , [address], [place], [address], [place] tel:[phone] No Information 3 Laya Yancey. [facility] [address], [place], [address], [place]. tel:[phone] [facility] , [address], [place], [address], [place] tel:[phone] [facility] , No Information 3 Laya Yancey. [facility] [address], [place], [address], [place]. tel:[phone] Office/Outpa tient Visit, Est [facility] , [address], [place], [address], [place] tel:[phone] [facility] , Inflammatory Polyarthropa thy (chief complaint) Unspecified inflammatory polyarthropa thyTherapeut ic Drug MonitoringOt her specified counselingAn tiphospholip W Hemorr DisMyalgia and myositis, unspecified 3 Laya Yancey. [facility] [address], [place], [address], [place]. tel:[phone] Referring Provider: Bc Shea, [facility] [address], [place], [address]. tel:[phone] Office/Outpa tient Visit, Est [facility] , [address], [place], [address], [place] tel:[phone] [facility] , Inflammatory Polyarthropa thy (chief complaint) Unspecified inflammatory polyarthropa thyTherapeut ic Drug MonitoringOt her specified counselingAn tiphospholip W Hemorr Dis 0 2 Laya Yancey. [facility] [address], [place], [address], [place]. tel:[phone] Office/Outpa tient Visit, Est [facility] , [address], [place], [address], [place] tel:[phone] [facility] , Joint Pain (chief complaint) Unspecified inflammatory polyarthropa thyTherapeut ic Drug MonitoringOt her specified counseling 2 Laya Yancey. [facility] [address], [place], [address], [place]. tel:[phone] Family History Family Member Type Diagnosis Age At Onset No Information Payers Payer name Insurance type Covered constitution party ID Ronda ortiz(s) [facility] [id number] Medicare MB [id number] Social History Type Description Quantity Date Captured [...]
--- OUTSIDE RECORDS SUMMARY | 2023-07-07 10:35 | XMS_ITS | Encounter Summary ---
Author Name Unknown Organization [facility] Address [address] [place] [address] Care Team Providers Care Thermometer Production Worker Name Role Phone Navdeep Waldron MD Unavailable [phone] Shankar Peñaloza MD Primary Care Provider Shankar Peñaloza MD Unavailable [phone] Capri Gant OD Unavailable Leeanna Joe MD Unavailable Richardson Alberts PAGerardC Unavailable Shankar Peñaloza MD Unavailable [phone] Marielena Sunshine PA-C Unavailable [phone] Radha Rivas Unavailable Unavailable Marielena Sunshine PA-C [...] st Contact Info) Description 07/16/2023 3:30 PM HOUSEHOLD WORKER Office Visit [facility] [address] [place] [address] Shankar Peñ[place] [address] [place] [address] [place] [address] 2023 3:00 PM HOUSEHOLD WORKER Virtual Visit [facility] [address] [place] [address] Job Jaramillo, [facility] [address] [place] [address] 08/13/2023 2:30 PM HOUSEHOLD WORKER Office Visit [facility] [address] [place] [address] [place] [address] [place] [address] documented as of this encounter Visit Diagnoses Not on filedocumented in this encounter Additional Health Concerns Infection Onset Date Last Indicated Resolved Time COVID-19 05/07/2022 05/07/2022 05/28/2022 11:3 9 PM HOUSEHOLD WORKER Assessment Noted Time PHQ-9 Depression Total Score: 020 7:04 AM HOUSEHOLD WORKER documented as of this encounter Care Teams Thermometer Production Worker Relationship Specialty Start Date End Date Shankar Peñaloza MD [address] [place] [address] [place] [address] PCP - General Internal Medicine 09/25/13 Navdeep Waldron MD [facility] [address] [place] [address] Physical Medicine & Rehabilitation - Pain Medicine 07/07/13 Shankar Peñaloza MD [address] [place] [address] [place] [address] Assigned PCP 07/22/16 Capri Gant OD [address] [place] [address] [place] [address] Assigned Surgical Provider 04/29/21 05/31/22 Leeanna Joe MD [address] [place] [address] Assigned Rheumatology Provider 04/22/21 10/18/22 Richardson Alberts PA-C [address] [place] [address] Physician Wood Scrap Handler Gastroenterology 03/01/22 Shankar Peñaloza MD [address] [place] [address] [place] [address] Assigned Pain Medication Provider 06/17/22 Marielena Sunshine PA-C [address] [facility] [address] [place] [address] Physician Wood Scrap Handler Urology 10/03/22 Radha Rivas Personal Advocate & Liaison (PAL) 11/26/22 Marielena Sunshine PA-C [address] [facility] [address] [place], [place] [address] Assigned Surgical Provider 12/07/22 Job Jaramillo LICSW [address] [place] [address] Help Desk Analyst Help Desk Analyst - Clinical 06/23/23 documented as of this encounter
--- OUTSIDE RECORDS SUMMARY | 2023-07-07 10:35 | XMS_ITS | Continuity of Care Document ---
Author Name Unknown Organization [facility] Address [address] [facility] [address] [place] [address] Phone Care Team Providers Care Monitor Car Operator Name Role Phone Barbara Franklin CNP Unavailable [...] Providers Copied on Encounter TAWANNA LeblancC, [address] [facility] [address], [place], [place], [id number], [place] tel:[phone] [facility] No Information 4 [place] Barbara Julio. [address] [place], [address], [place]. Referring Provider: Jany Feliz, [address] [place], [address]. tel:[phone] Offic/outpt E&m Estab Mod-hi 2 [facility], [address], [place], [id number], [place] tel:[phone] [facility] No Information 3 Noemi Kim. [address] [place], [address], [place]. Referring Provider: Jany Mishra MD M, [address] [place], [address]. tel:[phone] [facility], [address] [facility] [address], [place], [address], [place] tel:[phone] [facility] No Information 3 Sapna Avelar. [address], [place], [address], [place]. tel:[phone] Referring Provider: Jany Feliz, [address] [place], [address]. tel:[phone] Offic/outpt E&m Estab Mod-hi 2 [facility], [address], [id number], [place] tel:[phone] [facility] No Information 3 No Information Referring Provider: Jany Mishra MD M, [address] [place], [address]. tel:[phone] [facility], [address], [place], [address], [place] tel:[phone] [facility] No Information 3 Sapna Avelar. [address], [place], [place], [address], [place]. tel:[phone] Referring Provider: Jany Mishra MD M, [address] [place], [address]. tel:[phone] Offic/outpt E&m Estab Mod-hi 2 [facility], [facility], [address], [place], [place], [id number], [place] tel:[phone] [facility] No Information Sep-1 2 3 No Information Referring Provider: Jany Mishra MD M, [address] [place], [address]. tel:[phone] [facility], [facility], [address], [place], [place], [address], [place] tel:[phone] [facility] No Information Sep-0 3 Sapna Avelar. [address] [facility] [address], [place], [place], [id number], [place]. tel:[phone] Referring Provider: Jany Mishra MD M, [address] [place], [address]. tel:[phone] Psychiatric Diagnostic Evaluation [facility], [facility], [address], [place], [place], [address], [place] tel:[phone] [facility] 7390 No Information Jan-3 0 3 Jesu Shepherd D GLORIA Sena. [address], [place], [place], [address], [place]. tel:[phone] Referring Provider: Jany Mishra MD M, [address] [place], [address]. tel:[phone] Offic/outpt E&m Estab Mod-hi 2 [facility], [facility], [address], [place], [place], [address], [place] tel:[phone] [facility] No Information No Information Referring Provider: Jany Mishra MD M, [address] [place], [address]. tel:[phone] Offic Cons New/estab Mod-hi 60 [facility], [facility], [address], [place], [place], [address], [place] tel:[phone] [facility] No Information 3 No Information Referring Provider: Jany Mishra MD M, [address] [place], [address]. tel:[phone] [facility], [address], [place], [address], [place] tel:[phone] [facility] No Information 8 [facility] [address] [facility] [address], [place], [address], [place]. Referring Provider: Wilfred Yu MD, [address] [facility] [address] [facility] [place], [address]. tel:[phone] Family History Family Member Type Diagnosis Age At Onset No Information Payers Payer name Insurance type Covered democrat ID Authoriza angel(s) [employer] BL [id number] Social History Type Description Quantity Date Captured [...]
--- OUTSIDE RECORDS SUMMARY | 2023-07-07 10:35 | XMS_ITS | Encounter Summary ---
Author Name Unknown Organization [facility] Address [address] [place] [address] Care Team Providers Care Sail Finisher Machine Name Role Phone Navdeep Waldron MD Unavailable [phone] Shankar Peñaloza MD Primary Care Provider [phone] Shankar Peñaloza MD Unavailable [phone] Capri Gant OD Unavailable [phone] Leeanna Joe MD Unavailable Richardson AlbertsC Unavailable [phone] Shankar Peñaloza MD Unavailable [phone] Marielena Sunshine PA-C Unavailable Radha Rivas Unavailable Unavailable Marielena Sunshine PA-C Unavailable Job Jaramillo Unavailable Encounter Details Date Type Department Care Team (Late st Contact Info) Description 11/14/2020 Marco Antonio Feliz [facility] Keisha [address] [place] [address] Shankar Peñaloza MD [address] [facility] [place] [address] Fibromyalgia; Dermatitis [...] Contact Info) Description 07/16/2023 3:30 PM HAND LENS POLISHER [facility] [address] [place] [address] [address] [place] [phone] Shankar Peñaloza MD [address] [place] [address] [place] [address] 2023 3:00 PM HAND LENS POLISHER Virtual Visit [facility] [address] [place] [address] Job Jaramillo, [facility] [address] [place] [address] 08/13/2023 2:30 PM HAND LENS POLISHER Office Visit [facility] [address] [place] [address] [place] [address] [facility] [address] documented as of this encounter Visit Diagnoses Diagnosis Fibromyalgia Mylagia and myositis, unspecified Dermatitis Contact dermatitis and other eczema, due to unspecified cause documented in this encounter Additional Health Concerns Infection Onset Date Last Indicated Resolved Time COVID-19 05/07/2022 05/07/2022 05/28/2022 11:3 9 PM HAND LENS POLISHER Assessment Noted Time PHQ-9 Depression Total Score: 14 021 10:34 AM CDT documented as of this encounter Care Teams Sail Finisher Machine Relationship Specialty Start Date End Date Shankar Peñaloza MD [address] [place] [address] [place] [address] PCP - General Internal Medicine 09/25/13 Navdeep Waldron MD [facility] [address] [place] [address] Physical Medicine & Rehabilitation - Pain Medicine 07/07/13 Shankar Peñaloza MD [address] [place] [address] [place] [address] Assigned PCP 07/22/16 Capri Gant OD [address] [place] [address] [place] [address] Assigned Surgical Provider 04/29/21 05/31/22 Leeanna Joe MD [address] [place] [address] Assigned Rheumatology Provider 04/22/21 10/18/22 Richardson Alberts PA-C [address] [place] [address] Physician Hauling Contractor Gastroenterology 03/01/22 Shankar Peñaloza MD [address] [facility] [place] [address] Assigned Pain Medication Provider 06/17/22 Marielena Sunshine PA-C [address] [facility] [address] [place], [place] [address] Physician Hauling Contractor Urology 10/03/22 Radha Rivas Personal Advocate & Liaison (PAL) 11/26/22 Marielena Sunshine PA-C [address] [facility] [facility] [address] [facility] [address] [place] [address] Assigned Surgical Provider 12/07/22 Job Jaramillo LICSW [address] [place] [address] Reproduction Technician Reproduction Technician - Clinical 06/23/23 documented as of this encounter
--- OUTSIDE RECORDS SUMMARY | 2023-07-07 10:35 | XMS_ITS | Encounter Summary ---
Author Name Unknown Organization [facility] Address [address] [place] [address] Care Team Providers Care Supplier Quality Manager Name Role Phone Navdeep Waldron MD Unavailable [phone] Shankar Peñaloza MD Primary Care Provider Shankar Peñaloza MD Unavailable [phone] Shankar Peñaloza MD Unavailable [phone] Capri Gant OD Unavailable Leeanna Joe MD Unavailable Richardson Alberts PA-C Unavailable [phone] Shankar Peñaloza MD Unavailable [phone] Marielena SunshineC Unavailable Radha Rivas Unavailable Unavailable Marielena SunshineC Unavailable Job Jaramillo Unavailable Reason for Visit * Reason Onset Date Comments Refill Request 04/30/2017 Dilaudid 2mg, Fe ntanyl 25mcg Encounter Details Date Type Department Care Team (Late st Contact Info) Description 04/30/2017 [facility] [address] [place] [address] [address] [place] [address] Shankar Peñaloza MD [address] [facility] [place] [address] Refill Request (Dilaudid 2mg, Fentanyl 25mcg) Social [...] 11:43 AM CST Both Rx's brought to [facility] pharmacy. Andra New [place] TOR ENGINE ASSEMBLER * Telephone Encounter - Shankar Peñaloza MD - 05/02/2017 11:07 AM CST Rx refilled. In my outbasket. TOR ENGINE ASSEMBLER * Telephone Encounter - Claire Montgomery RN - 05/02/2017 10:40 AM TRACTOR ENGINE ASSEMBLER FENTANYL 25 MCG PATCH Last rx written: 04/02/17 # 10 w/ 0 refills [place] AIR PURIFIER SERVICER reviewed- last filled: 04/02/17 Narc agreement: #10/ for 30 days DILAUDID 2 MG Last rx written: 04/02/17 # 60 [place] AIR PURIFIER SERVICER reviewed- last filled: 04/02/17 Narc agreement: #60 for 30 days Last OV: 03/03/17 for Routine Exam Unable to fill per standing order routed to Dr. Peñaloza for approval. Walk the RX to [facility]. Problem List Complete: Yes AIR PURIFIER SERVICER checked in past 6 months? Yes 05/02/17 Claire Montgomery RN TOR ENGINE ASSEMBLER documented in this encounter Plan of Treatment Upcoming Encounters Date Type Department Care Team (Late st Contact Info) Description 07/16/2023 3:30 PM TRACTOR ENGINE ASSEMBLER Office Visit [facility] [place] [address] [place] [address] Shankar Peñ[place] [address] [place] [address] [place] [address] 2023 3:00 PM TRACTOR ENGINE ASSEMBLER Virtual Visit [facility] Mental Health and Addiction [address] [place] [address] Job Jaramillo, [facility] [address] [place] [address] 08/13/2023 2:30 PM TRACTOR ENGINE ASSEMBLER Office Visit [facility] [address] [place] [address] [place] [address] [place], [place] [id number] documented as of this encounter Visit Diagnoses Diagnosis DDD (degenerative disc disease), cervical Degeneration of cervical intervertebral disc Fibromyalgia Mylagia and myositis, unspecified Chronic pain syndrome documented in this encounter Additional Health Concerns Infection Onset Date Last Indicated Resolved Time COVID-19 05/07/2022 05/07/2022 05/28/2022 11:3 9 PM TRACTOR ENGINE ASSEMBLER Assessment Noted Time PHQ-9 Depression Total Score: 18 017 7:07 AM CDT documented as of this encounter Care Teams Supplier Quality Manager Relationship Specialty Start Date End Date Shankar Peñaloza MD [address] [place] [address] [place] [address] PCP - General Internal Medicine 09/25/13 Shankar Peñaloza MD [address] [place] [address] [place] [address] PCP - Assigned PCP 07/22/16 08/11/18 Navdeep Waldron MD [facility] [address] [place] [address] Physical Medicine & Rehabilitation - Pain Medicine 07/07/13 Shankar Peñaloza MD [address] [place] [address] [place] [address] Assigned PCP 07/22/16 Capri Gant OD [address] [place] [address] [place] [address] Assigned Surgical Provider 04/29/21 05/31/22 Leeanna Joe MD [address] [place] [address] Assigned Rheumatology Provider 04/22/21 10/18/22 Richardson Alberts PA-C [address] [place] [address] Physician Manager Flight Gastroenterology 03/01/22 Shankar Peñaloza MD [address] [place] [address] [place] [address] Assigned Pain Medication Provider 06/17/22 Marielena Sunshine PA-C [address] [facility] [address] [place] [address] Physician Manager Flight Urology 10/03/22 Radha Rivas Personal Advocate & Liaison (PAL) 11/26/22 Marielena Sunshine PA-C [address] [place] [address] Assigned Surgical Provider 12/07/22 Job Jaramillo, [facility] [address] [place] [address] Transcribing Operator Head Transcribing Operator Head - Clinical 06/23/23 documented as of this encounter
--- OUTSIDE RECORDS SUMMARY | 2023-07-07 10:35 | XMS_ITS | Encounter Summary ---
Author Name Unknown Organization [place] Address [address] [place] [address] Care Team Providers Care Loans Officer Name Role Phone Navdeep Waldron MD Unavailable [phone] Shankar Peñaloza MD Primary Care Provider Shankar Peñaloza MD Unavailable [phone] Capri Gant OD Unavailable Leeanna Joe MD Unavailable Richardson Alberts PA-C Unavailable [phone] Shankar Peñaloza MD Unavailable [phone] Marielena Sunshine PA-C Unavailable Radha Rivas Unavailable Unavailable Marielena Sunshine PA-C Unavailable Job Jaramillo Unavailable Encounter Details Date Type Department Care Team (Late st Contact Info) Description 08/17/[address] [facility] [place] [address] [place] [address] Shankar Peñaloza MD [address] [facility] [place] [address] Dysuria (Primary Dx) [...] Contact Info) Description 07/16/2023 3:30 PM CHILD WELFARE CONSULTANT Office Visit [facility] [address] [place] [address] Shankar Peñ[place]za [place] [address] [place] [address] [place] [address] 2023 3:00 PM CHILD WELFARE CONSULTANT Virtual Visit [facility] [address] [place] [address] Job Jaramillo, [address] [id number] 08/13/2023 2:30 PM CHILD WELFARE CONSULTANT Office Visit [facility] [address] [place] [address] [place] [address] [place], [place] 1652[address] documented as of this encounter Visit Diagnoses Diagnosis Dysuria- Primary documented in this encounter Additional Health Concerns Infection Onset Date Last Indicated Resolved Time COVID-19 05/07/2022 05/07/2022 05/28/2022 11:3 9 PM CHILD WELFARE CONSULTANT Assessment Noted Time PHQ-9 Depression Total Score: 020 7:04 AM CHILD WELFARE CONSULTANT documented as of this encounter Care Teams Loans Officer Relationship Specialty Start Date End Date Shankar Peñaloza MD [address] [place] [address] [place] [address] PCP - General Internal Medicine 09/25/13 Navdeep Waldron MD [facility] [address] [place] [address] Physical Medicine & Rehabilitation - Pain Medicine 07/07/13 Shankar Peñaloza MD [address] [place] [address] [place] [address] Assigned PCP 07/22/16 Capri Gant OD [address] [place] [address] [place] [address] Assigned Surgical Provider 04/29/21 05/31/22 Leeanna Joe MD [address] [place] [address] Assigned Rheumatology Provider 04/22/21 10/18/22 Richardson Alberts PA-C [address] [place] [address] Physician Pet Food Deboner Gastroenterology 03/01/22 Shankar Peñaloza MD [address] [place] [address] [place] [address] Assigned Pain Medication Provider 06/17/22 Marielena Sunshine PA-C [address] [facility] [address] [place] [address] Physician Pet Food Deboner Urology 10/03/22 Radha Rivas Personal Advocate & Liaison (PAL) 11/26/22 Marielena Sunshine PA-C [address] [place] [address] [place] [address] Assigned Surgical Provider 12/07/22 Job Jaramillo LICSW [address] [place] [address] Back Strip Machine Operator Back Strip Machine Operator - Clinical 06/23/23 documented as of this encounter
--- OUTSIDE RECORDS SUMMARY | 2023-07-07 10:35 | XMS_ITS | Clinical Summary ---
Author Name Unknown Organization [facility] Address [place], [place] [address] Care Team Providers Care Community Service Patrol Officer Name Role Phone Jany Mishra MD Primary Care Provider [phone] Allergies Active Allergy Reactions Criticality Noted Date [...] Department Care Team Description 04/14/2023 Lab Requisition [facility] [phone] Jose Moore MD from Last 3 Months [...] 36 ??C (96.8 ??F) 04/27/2009 4:42 PM PAID SEARCH SPECIALIST Respiratory Rate 16 04/27/2009 6:15 PM PAID SEARCH SPECIALIST Oxygen Saturation 95% 04/27/2009 6:15 PM PAID SEARCH SPECIALIST Inhaled Oxygen Concentration - - Weight 91.2 [...] FACTOR 10 CHROMOGENIC Routine 04/14/2023 3:01 PM PAID SEARCH SPECIALIST Antiphospholipid syndrome (HC) from Last 3 Months Results * (ABNORMAL) FACTOR 10 CHROMOGENIC (04/14/2023 3:01 PM PAID SEARCH SPECIALIST) FACTOR 10 CHROMOGENIC 33(L) 60 - 120 % 04/14/2023 9:09 PM PAID SEARCH SPECIALIST [facility] Blood BLOOD SPECIMEN / Unknown 04/14/2023 3:01 PM PAID SEARCH SPECIALIST 04/14/2023 8:44 PM PAID SEARCH SPECIALIST Narrative [facility] - 04/14/2023 9:09 PM PAID SEARCH SPECIALIST Therapeutic Range 20-40% Jose Moore MD SEND OUTS [facility] [address] [place] [address], from Last 3 Months Advance Directives Latest Code Status on File Code Status Date Activated Date Inactivated Comments Full Code 04/27/2009 12:13 PM 04/27/2009 9:52 PM Care Teams Community Service Patrol Officer Relationship Specialty Start Date End Date Jany Mishra MD PCP - General Internal Medicine 12/28/12
--- OUTSIDE RECORDS SUMMARY | 2023-07-07 10:35 | XMS_ITS | Encounter Summary ---
Author Name Unknown Organization [facility] Address [address] [place] [address] Care Team Providers Care Mailroom Personnel Name Role Phone Navdeep Waldron MD Unavailable [phone] Shankar Peñaloza MD Primary Care Provider [phone] Shankar Peñaloza MD Unavailable [phone] Capri Gant OD Unavailable Leeanna Joe MD Unavailable Richardson Alberts PA-C Unavailable [phone] Shankar Peñaloza MD Unavailable [phone] Marielena Sunshine PA-C Unavailable [phone] Radha Rivas Unavailable Unavailable Marielena Sunshine PA-C Unavailable Job Jaramillo Unavailable [phone] Reason for Visit * Reason Onset Date Comments Prior Authorization 09/15/2020 fentaNYL (DU RAGESIC) 25 mcg/hr 72 hr patch- APPROVED Encounter Details Date Type Department Care Team (Late st Contact Info) Description 09/15/[address] [place] [address] Shankar Peñaloza MD [address] [facility] [address] [place], [place] [address] Prior Authorization (fentaNYL (DURAGESIC) 25 mcg/hr 72 [...] APPROVED Approved Dose/Quantity: 10 PATCHES Reference #: [id number] Insurance Company: [facility] - Expected CoPay: CoPay Card Available: Foundation Assistance Needed: Which Pharmacy is filling the prescription (Not needed for infusion/clinic administered): [facility] #[id number] [address] Pharmacy Notified: Yes Patient Notified: Yes Central Prior Authorization Team * Telephone Encounter - Radha Gayle - 09/18/2020 4:30 PM CDT Images from the original note were not included. PA Initiation Medication: fentaNYL (DURAGESIC) 25 mcg/hr 72 hr patch- INITIATED Insurance Company: [facility] - Pharmacy Filling the Rx: [id number] - [place], [place] - [address] Filling Pharmacy Filling Pharmacy [...] different than what is on RX) Name: [place] documented in this encounter Plan of Treatment Upcoming Encounters Date Type Department Care Team (Late st Contact Info) Description 07/16/2023 3:30 PM HORN PLAYER Office Visit [facility] [address] [place] [address] Shankar Peñaloza MD [address] [facility] [place] [address] 2023 3:00 PM HORN PLAYER Virtual Visit [facility] [address] [place] [address] Job Jaramillo, [address] [address] 08/13/2023 2:30 PM HORN PLAYER Office Visit [address] [address] [place] [address] [place] [address] documented as of this encounter Visit Diagnoses Not on filedocumented in this encounter Additional Health Concerns Infection Onset Date Last Indicated Resolved Time COVID-19 05/07/2022 05/07/2022 05/28/2022 11:3 9 PM HORN PLAYER Assessment Noted Time PHQ-9 Depression Total Score: 020 7:04 AM HORN PLAYER documented as of this encounter Care Teams Mailroom Personnel Relationship Specialty Start Date End Date Shankar Peñaloza MD [address] [place] [address] [place] [address] PCP - General Internal Medicine 09/25/13 Navdeep Waldron MD [facility] [address] [place] [address] Physical Medicine & Rehabilitation - Pain Medicine 07/07/13 Shankar Peñaloza MD [address] [place] [address] [place] [address] Assigned PCP 07/22/16 Capri Gant OD [address] [place] [address] [place] [address] Assigned Surgical Provider 04/29/21 05/31/22 Leeanna Joe MD [address] [place] [address] Assigned Rheumatology Provider 04/22/21 10/18/22 Richardson Alberts PA-C [address] [place] [address] Physician Presser And Shaper Knitted Goods Gastroenterology 03/01/22 Shankar Peñaloza MD [address] [facility] [place] [address] Assigned Pain Medication Provider 06/17/22 Marielena Sunshine PA-C [address] [facility] [address] [place] [address] Physician Presser And Shaper Knitted Goods Urology 10/03/22 Radha Rivas Personal Advocate & Liaison (PAL) 11/26/22 Marielena Susnhine PA-C [address] [facility] [address] [place] [address] Assigned Surgical Provider 12/07/22 Job Jaramillo LICSW [address] [place] [address] Manager Intelligence Manager Intelligence - Clinical 06/23/23 documented as of this encounter
--- OUTSIDE RECORDS SUMMARY | 2023-07-07 10:35 | XMS_ITS | Encounter Summary ---
Author Name Unknown Organization [facility] Address [address] [place] [address] Care Team Providers Care Redevelopment Specialist Name Role Phone Navdeep Waldron MD Unavailable [phone] Shankar Peñaloza MD Primary Care Provider Shankar Peñaloza MD Unavailable [phone] Capri Gant OD Unavailable [phone] Leeanna Joe MD Unavailable Richardson Alberts PA-C Unavailable [phone] Shankar Peñaloza MD Unavailable [phone] Marielena Sunshine PA-C Unavailable Radha Rivas Unavailable Unavailable Marielena Sunshine PA-C Unavailable Job Jaramillo Unavailable Encounter Details Date Type Department Care Team (Late st Contact Info) Description 02/08/2020 Marco Antonio Medical Ciaran Feliz [facility] [address] [facility] [facility] [address] [place] [address] Tiffani Ko MA Social History [...] Contact Info) Description 07/16/2023 3:30 PM MEDICAL APPARATUS MODEL MAKER Office Visit [address] [place] [address] Shankar Peñaloza MD [address] [facility] [place] [address] 2023 3:00 PM MEDICAL APPARATUS MODEL MAKER Virtual Visit [facility] [address] [place] [address] Job Jaramillo, [address] [address] 08/13/2023 2:30 PM MEDICAL APPARATUS MODEL MAKER Office Visit [facility] [address] [place] [address] [place] [address] [place], [place] [id number] documented as of this encounter Visit Diagnoses Not on filedocumented in this encounter Additional Health Concerns Infection Onset Date Last Indicated Resolved Time COVID-19 05/07/2022 05/07/2022 05/28/2022 11:3 9 PM MEDICAL APPARATUS MODEL MAKER Assessment Noted Time PHQ-9 Depression Total Score: 19 020 7:04 AM MEDICAL APPARATUS MODEL MAKER documented as of this encounter Care Teams Redevelopment Specialist Relationship Specialty Start Date End Date Shankar Peñaloza MD [address] [place] [address] [place] [address] PCP - General Internal Medicine 09/25/13 Navdeep Waldron MD [facility] [address] [place] [address] Physical Medicine & Rehabilitation - Pain Medicine 07/07/13 Shankar Peñaloza MD [address] [place] [address] [place] [address] Assigned PCP 07/22/16 Capri Gant OD [address] [place] [address] [place] [address] Assigned Surgical Provider 04/29/21 05/31/22 Leeanna Joe MD [address] [place], [place] [address] Assigned Rheumatology Provider 04/22/21 10/18/22 Richardson Alberts PA-C [address] [place] [address] Physician Caravan Park And Camping Ground Manager Gastroenterology 03/01/22 Shankar Peñaloza MD [address] [place] [address] [place] [address] Assigned Pain Medication Provider 06/17/22 Marielena Sunshine PA-C [address] [facility] [address] [place] [address] Physician Caravan Park And Camping Ground Manager Urology 10/03/22 Radha Rivas Personal Advocate & Liaison (PAL) 11/26/22 Marielena Sunshine PA-C [address] [address] Assigned Surgical Provider 12/07/22 Job Jaramillo LICSW [address] [place] [address] Email Campaign Manager Email Campaign Manager - Clinical 06/23/23 documented as of this encounter
--- OUTSIDE RECORDS SUMMARY | 2023-07-07 10:35 | XMS_ITS | Encounter Summary ---
Author Name Unknown Organization [place] [facility] Address [address] [place] [address] Care Team Providers Care Intern Architect Name Role Phone Navdeep Waldron MD Unavailable [phone] Shankar Peñaloza MD Primary Care Provider Shankar Peñaloza MD Unavailable [phone] Shankar Peñaloza MD Unavailable [phone] Capri Gant OD Unavailable Leeanna Joe MD Unavailable Richardson Alberts PA-C Unavailable [phone] Shankar Peñaloza MD Unavailable [phone] Marielena SunshineC Unavailable Radha Rivas Unavailable [...] st Contact Info) Description 07/16/2023 3:30 PM RESEARCH AND INSIGHTS EXECUTIVE Office Visit [facility] [place] [address] [place] [address] Shankar Peñaloza MD [address] [place] [address] [place] [address] 2023 3:00 PM RESEARCH AND INSIGHTS EXECUTIVE Virtual Visit [facility] Mental Health and Addiction [facility] [address] [place] [address] Job Jaramillo, [facility] [address] [place] [address] 08/13/2023 2:30 PM RESEARCH AND INSIGHTS EXECUTIVE Office Visit [facility] [address] [place] [address] [place] [address] [place], [place] [id number] documented as of this encounter Visit Diagnoses Not on filedocumented in this encounter Additional Health Concerns Infection Onset Date Last Indicated Resolved Time COVID-19 05/07/2022 05/07/2022 05/28/2022 11:3 9 PM RESEARCH AND INSIGHTS EXECUTIVE Assessment Noted Time PHQ-9 Depression Total Score: 16 017 7:14 AM RESEARCH AND INSIGHTS EXECUTIVE documented as of this encounter Care Teams Intern Architect Relationship Specialty Start Date End Date Shankar Peñaloza MD [address] [place] [address] [place] [address] PCP - General Internal Medicine 09/25/13 Shankar Peñaloza MD [address] [place] [address] [place] [address] PCP - Assigned PCP 07/22/16 08/11/18 Navdeep Waldron MD [facility] [address] [place] [address] Physical Medicine & Rehabilitation - Pain Medicine 07/07/13 Shankar Peñaloza MD [address] [place] [address] [place] [address] Assigned PCP 07/22/16 Capri Gant OD [address] [place] [address] [place] [address] Assigned Surgical Provider 04/29/21 05/31/22 Leeanna Joe MD [address] [place] [address] Assigned Rheumatology Provider 04/22/21 10/18/22 Richardson Alberts PA-C [address] [place] [address] Physician [place]endette Gastroenterology 03/01/22 Shankar Peñaloza MD [address] [place] [address] [place] [address] Assigned Pain Medication Provider 06/17/22 Marielena Sunshine PA-C [address] [facility] [address] [place] [address] Physician [place] Urology 10/03/22 Radha Rivas Personal Advocate & Liaison (PAL) 11/26/22 FerMarielena wade PA-C [address] [address] Assigned Surgical Provider 12/07/22 Job Jaramillo LICSW [address] [place] [address] Local Telephone Operator Local Telephone Operator - Clinical 06/23/23 documented as of this encounter
--- OUTSIDE RECORDS SUMMARY | 2023-07-07 10:35 | XMS_ITS | Encounter Summary ---
Author Name Unknown Organization [facility] Address [address] [place] [address] Care Team Providers Care Developer Evangelist Name Role Phone Navdeep Waldron MD Unavailable [phone] Shankar Peñaloza MD Primary Care Provider Shankar Peñaloza MD Unavailable [phone] Capri Gant OD Unavailable Leeanna Joe MD Unavailable Richardson Alberts PAGerardC Unavailable [phone] Shankar Peñaloza MD Unavailable [phone] Marielena Sunshine PA-C Unavailable Radha Rivas [...] COVID-19? No / Unsure 08/04/2020 1:02 PM FLYING SQUAD WORKER documented as of this encounter Plan of Treatment Upcoming Encounters Date Type Department Care Team (Late st Contact Info) Description 07/16/2023 3:30 PM FLYING SQUAD WORKER Office Visit [address] [place] [address] Shankar Peñaloza MD [address] [place] [address] [place] [address] 2023 3:00 PM FLYING SQUAD WORKER Virtual Visit [facility] [address] [place] [address] Job Jaramillo, [facility] [address] [place] [address] 08/13/2023 2:30 PM FLYING SQUAD WORKER Office Visit [facility] [address] [place] [phone] [place] [id number] [place] [address] documented as of this encounter Visit Diagnoses Not on filedocumented in this encounter Additional Health Concerns Infection Onset Date Last Indicated Resolved Time COVID-19 05/07/2022 05/07/2022 05/28/2022 11:3 9 PM FLYING SQUAD WORKER Assessment Noted Time PHQ-9 Depression Total Score: 19 020 7:04 AM FLYING SQUAD WORKER documented as of this encounter Care Teams Developer Evangelist Relationship Specialty Start Date End Date Shankar Peñaloza MD [address] [place] [address] [place] [address] PCP - General Internal Medicine 09/25/[address] [facility] [address] [place] [address] Physical Medicine & Rehabilitation - Pain Medicine 07/07/13 Shankar Peñaloza MD [address] [place] [address] [place] [address] Assigned PCP 07/22/16 Capri Gant OD [address] [place] [address] [place] [address] Assigned Surgical Provider 04/29/21 05/31/22 Leeanna Joe MD [address] [place] [address] Assigned Rheumatology Provider 04/22/21 10/18/22 Richardson Alberts PA-C [address] [place] [address] Physician Dental Surgery Doctor Gastroenterology 03/01/22 Shankar Peñaloza MD [address] [place] [address] [place] [address] Assigned Pain Medication Provider 06/17/22 Marielena Sunshine PA-C [address] [facility] [address] [place], [place] [id number] Physician Dental Surgery Doctor Urology 10/03/22 Radha Rivas Personal Advocate & Liaison (PAL) 11/26/22 Marielena Sunshine PA-C [address] [place] [address] Assigned Surgical Provider 12/07/22 Job Jaramillo, [facility] [address] [place] [address] Statistical Methods Teacher Statistical Methods Teacher - Clinical 06/23/23 documented as of this encounter
--- OUTSIDE RECORDS SUMMARY | 2023-07-07 10:35 | XMS_ITS | Encounter Summary ---
Author Name Unknown Organization [facility] Address [address] [place] [address] Care Team Providers Care Radar Technician Name Role Phone Navdeep Waldron MD Unavailable [phone] Shankar Peñaloza MD Primary Care Provider [phone] Shankar Peñaloza MD Unavailable [phone] Capri Gant OD Unavailable [phone] Leeanna Joe MD Unavailable Richardson Alberts PA-C Unavailable [phone] Shankar Peñaloza MD Unavailable [phone] Marielena Sunshine PA-C Unavailable Radha Rivas Unavailable Unavailable Marielena Sunshine PA-C Unavailable Job Jaramillo Unavailable Reason for Visit * Reason Onset Date Comments Medication Question 07/30/2019 Fentanyl pat ches dose - decreased Encounter Details Date Type Department Care Team (Late st Contact Info) Description 07/30/2019 [facility] [address] [facility] [address] [place] [address] Shankar Peñaloza MD [address] [facility] [place] [address] Medication Question (Fentanyl patches dose... Social History [...] Magy Villanueva RN - 08/03/2019 2:27 PM TECHNICAL COMMUNICATION TEACHER Called [employer] PA team at [phone] to check on appeal status. I was told that appeal is handled directly by [facility] & advised to contact them. Called [facility] Provider line at [phone](Pt ID# [id number]). I was told that they received the appeal letter on 07/30, is under review, they are unable to tell me anything more, might take 7-10 days. The case # for this appeal is [id number]. Will await for the response from insurance. James director university Nurse NICAL COMMUNICATION TEACHER * Telephone Encounter - Shankar Peñaloza MD - 07/30/2019 4:29 PM CST PA was denied. Appeal letter faxed. NICAL COMMUNICATION TEACHER * Telephone Encounter - Magy Villanueva RN - 07/30/2019 2:44 PM TECHNICAL COMMUNICATION TEACHER See pt's [facility] message. Huddled with - will try to decrease pt's fentanyl patches from 50 mcg to 37.5 mcg to see whether that helps her fatigue. New rx for fentanyl 37.5 mcg patches handed to pt during OV. Called Gloria at [phone](AV) to get details. I was told that pt picked up 50 mcg patches just couple of days back. So, her insurance is refusing to pay for another rx eventough its for a decreased dose. Need to get an approval through her insurance. No PA needed. Called [facility] help desk at [phone] to get approval from insurance. Provided clarification to Shilpa(pharmacist), started the approval process. She is unable to approve the med dose tire changer the phone, but marked it urgent, will get back to us with in 24 hrs. Ref # is [id number].Notified pt through as well. Notes from 07/28/2019: Reviewed ongoing health issues. RA with significant pain. Last fall fentanyl patch was increased from 25 to 50 mcg. Pain is better but has fatigue as noted. Fatigue. dDx includes UTI, sinusitis, increased fentanyl dose, other. Decrease fentanyl to 37.5 mcg EVERETT Ramirez Triage Nurse NICAL COMMUNICATION TEACHER documented in this encounter Plan of Treatment Upcoming Encounters Date Type Department Care Team (Late st Contact Info) Description 07/16/2023 3:30 PM TECHNICAL COMMUNICATION TEACHER Office Visit [address] [place] [phone] Shankar Peñaloza MD [address] [facility] [place] [address] 2023 3:00 PM TECHNICAL COMMUNICATION TEACHER Virtual Visit [facility] [address] [place] [address] [id number] 08/13/2023 2:30 PM TECHNICAL COMMUNICATION TEACHER Office Visit [facility] [address] [place] [address] [place] [address] [place] [address] documented as of this encounter Visit Diagnoses Not on filedocumented in this encounter Additional Health Concerns Infection Onset Date Last Indicated Resolved Time COVID-19 05/07/2022 05/07/2022 05/28/2022 11:3 9 PM TECHNICAL COMMUNICATION TEACHER Assessment Noted Time PHQ-9 Depression Total Score: 020 7:04 AM TECHNICAL COMMUNICATION TEACHER documented as of this encounter Care Teams Radar Technician Relationship Specialty Start Date End Date Shankar Peñaloza MD [address] [place] [address] [place] [address] PCP - General Internal Medicine 09/25/13 Navdeep Waldron MD [facility] [address] [place] [address] Physical Medicine & Rehabilitation - Pain Medicine 07/07/13 Shankar Peñaloza MD [address] [place] [address] [place] [address] Assigned PCP 07/22/16 Capri Gant OD [address] [place] [address] [place] [address] Assigned Surgical Provider 04/29/21 05/31/22 Leeanna Joe MD [address] [place] [address] Assigned Rheumatology Provider 04/22/21 10/18/22 Richardson Alberts PA-C [address] [place] [address] Physician Merchandising Internship Gastroenterology 03/01/22 Shankar Peñaloza MD [address] [facility] [place] [address] Assigned Pain Medication Provider 06/17/22 Marielena Sunshine PA-C [address] [facility] [address] [place] [address] Physician Merchandising Internship Urology 10/03/22 Radha Rivas Personal Advocate & Liaison (PAL) 11/26/22 Marielena Sunshine PA-C [address] [facility] [address] [place], [place] [address] Assigned Surgical Provider 12/07/22 Job Jaramillo LICSW [address] [place] [address] Clinic Coordinator Clinic Coordinator - Clinical 06/23/23 documented as of this encounter
--- NOTE | 2023-07-07 11:33 | W.ANESCHARGE ---
Anesthesia Charges Start Date/Time Anesthesia Start Date: 07/07/23 Anesthesia Start Time: 11:11 Stop Date/Time Anesthesia Stop Date: 07/07/23 Anesthesia Stop Time: 11:36
--- NOTE | 2023-07-07 11:45 | W.ANESCHARGE ---
Anesthesia Charges Start Date/Time Anesthesia Start Date: 07/07/23 Anesthesia Start Time: 11:11 Stop Date/Time Anesthesia Stop Date: 07/07/23 Anesthesia Stop Time: 11:36
== END 2023-07-07 10:25 | disposition home or self-care (01) ==
LOC: OP CLINIC 10:26
PROVIDERS: Visit Provider Internal Medicine
DX: R13.10 Dysphagia, unspecified (principal); R12 Heartburn
CPT/HCPCS: 00731; 43239; 88305; J2704

== ENCOUNTER 2023-08-01 11:37 | Emergency (ER) | payer OTHER, MEDICARE, SELFPAY ==
[2023-08-01 11:51] VITALS: BP 119/82; PULSE 86; RESP 18; TEMP 36.6; O2SAT 96; BMI 28.9
[2023-08-01 12:44] LABS: PCR FLU A Negative PCR FLU A (Negative); PCR FLU B Negative PCR FLU B (Negative); PCR RSV Negative PCR RSV (Negative); SARS PCR* Negative SARS-CoV-2 (Negative)
--- NOTE | 2023-08-01 13:02 | CT_ITS ---
Patient: GARTH MARI Facility:?[facility] RIS Patient ID:?[id number] Site Patient ID:?[id number]. Site :?[id number] Study:?CT-Abdomen/Pelvis W/IV-08/01/2023 1:36:49 PM Ordering Physician:JOSE J Final Report: INDICATION: Diffuse abdominal pain for months. COMPARISON: There are no prior studies for comparison. TECHNIQUE: CT examination of the abdomen and pelvis was performed following the uneventful intravenous administration of 88 cc of Isovue 370. Thin section axial images were obtained from the lung bases through the pubic symphysis. Oral contrast was not administered. Please note that all CT scans at this facility use dose modulation, iterative reconstruction, and/or weight-based dosing when appropriate to reduce radiation dose to as low as reasonably achievable. FINDINGS: LUNG BASES: The lung bases as visualized appear normal.The heart size is normal at the lung bases. LIVER/BILIARY SYSTEM:Normal-sized liver. Low-density lesion in the posterior segment of the right lobe of the liver probably a small cyst or hemangioma. This is too small to fully characterize by CT and measures about 6 millimeters. No biliary ductal dilation.Gallbladder surgically absent ADRENALS: Right adrenal gland appears normal. There is an indeterminate left adrenal nodule containing a punctate calcification. This nodule measures 2.5 centimeters. Consider follow up evaluation such as MRI for further characterization at a clinically appropriate time KIDNEYS, URETERS and BLADDER:The right kidney is unremarkable. There is a focal area of renal cortical scarring in the lower pole on the left. No obstructive uropathy. The bladder appears normal. SPLEEN:Normal appearance. PANCREAS: Appears normal. RETROPERITONEUM and MESENTERY: There is no mass, adenopathy or aortic aneurysm. Atherosclerotic vascular calcifications GASTROINTESTINAL SYSTEM: There is no evidence of diverticulitis, colitis, mechanical obstruction, or appendicitis. The small bowel as visualized appears normal. PELVIS: No mass, adenopathy or free fluid. OSSEOUS STRUCTURES and ABDOMINAL WALL: There is an age-appropriate appearance of the osseous structures.No significant abdominal wall defect. OTHER: No free fluid or free air. IMPRESSION: 1. No specific visible cause for pain. 2. Indeterminate but probably benign hepatic lesion. This is too small to characterize by CT. 3. Indeterminate left adrenal nodule measuring 2.5 centimeters. This could likely be more fully characterized by MRI which should be considered. 4. Small focal area of renal cortical scarring in the lower pole of the left kidney. 5. Other incidental nonacute appearing findings as above. Please note that all CT scans at this facility use dose modulation, iterative reconstruction, and/or weight-based dosing when appropriate to reduce radiation dose to as low as reasonably achievable. Dictated by Mark Palmer MD @ 08/01/2023 1:58:23 PM Signed by:?Mark Palmer MD @08/01/2023 1:58:23 PM (Electronic Signature)
[2023-08-01] MEDS: PROCHLORPERAZINE 5 MG/ML VIAL 10 MG IV (13:23)
[2023-08-01 13:30] LABS: Basophils Absolute Auto 0.04 K/uL (0.00-0.30); Basophils Percent Auto 0.6 % (0.0-3.0); Eosinophils Percent Auto 1.4 % (0.0-7.0); Hematocrit 42.4 % (33.0-51.0); Hemoglobin* 13.6 gm/dL (12.0-16.0); Immature Granulocytes Abs Auto 0.01 K/uL (0.00-0.30); Immature Granulocytes Pct Auto 0.1 %; Lymphocytes Absolute Auto 1.41 K/uL (0.90-2.90); Mean Corpuscular HGB Conc 32 gm/dL (32-36); Mean Corpuscular Hemoglobin 29 pg (26-34); Mean Corpuscular Volume 90 fL (80-100); Monocytes Percent Auto 4.3 % (0.0-11.0); Neutrophils Percent Auto 73.6 % (42.0-72.0); Platelet Count* 191 K/uL (140-440); RDW Coefficient of Variation % 12.6 % (11.5-15.5); Red Blood Count 4.73 m/uL (4.00-5.20); White Blood Count* 7.05 K/uL (4.50-11.00)
[2023-08-01 13:34] LABS: Slide Review Reflex No
[2023-08-01 13:49] LABS: Albumin* 4.2 g/dL (3.3-5.0); Chloride* 106 mmol/L (96-114)
[2023-08-01 13:50] LABS: Potassium* 4.3 mmol/L (3.6-5.1); Sodium* 139 mmol/L (135-149)
[2023-08-01 13:52] LABS: Alkaline Phosphatase* 80 U/L (40-150); Anion Gap 8 mEq/L (7-15); Aspartate Amino Transferase* 20 U/L (12-35); Bilirubin Total* 0.7 mg/dL (0.1-1.5); Blood Urea Nitrogen* 15 mg/dL (7-30); Carbon Dioxide* 25 mmol/L (20-32); Creatinine* 0.9 mg/dL (0.5-1.5); Est. Creatinine Clearance* 64.56; Estimated Glomerular Filt Rate 75 ml/min; Lipase* 94 U/L (23-300); Total Protein* 7.1 g/dL (6.0-8.3)
[2023-08-01 13:53] LABS: Alanine Aminotransferase* 15 U/L (4-35); Calcium* 9.3 mg/dL (8.4-10.6); Glucose* 100 mg/dL (60-115)
--- NOTE | 2023-08-01 13:56 | CT_ITS ---
Patient: GARTH MARI Facility:?[facility] Patient ID:?[id number] Site Patient ID:?[id number]. Site :?[id number] Study:?CT-Sinus W/O-08/01/2023 2:13:50 PM Ordering Physician:JOSE J Final Report: Indication: Sinus pressure, headache and congestion. Technique: CT examination of the paranasal sinuses was performed. The study was acquired in the axial plane. Contrast is not administered. Imaging was acquired from above the expected location of the frontal sinuses through below the hard palate. Sagittal and coronal reformatted imaging was performed Please note that all CT scans at this facility use dose modulation, iterative reconstruction, and/or weight-based dosing when appropriate to reduce radiation dose to as low as reasonably achievable. Comparison: There are no prior studies for comparison Findings: Limited visualized intracranial contents appear normal. Orbital and facial soft tissues as visualized appear normal. The frontal sinuses are aplastic. This is considered a normal variation. There is trace mucosal thickening of the ethmoid air cells consistent with minimal chronic mucosal inflammatory disease The sphenoid sinuses appear normal. Minimal mucosal thickening of the floor of the left maxillary sinus consistent with mild chronic mucosal inflammatory disease. Both ostiomeatal units are patent. The contents of the nasal cavities appear normal. No septal deviation. There is an incidental torus palatinus Impression: 1. Minimal chronic appearing mucosal thickening involving the ethmoid air cells and the floor of the left maxillary sinus. The sinuses are otherwise overall unremarkable. 2. Patent ostiomeatal units. 3. Nasal septum is midline. 4. No abnormal soft tissue within the nasal cavity. 5. Incidental aplasia of the frontal sinuses, normal variation. 6. Incidental torus palatinus Please note that all CT scans at this facility use dose modulation, iterative reconstruction, and/or weight-based dosing when appropriate to reduce radiation dose to as low as reasonably achievable. Dictated by Mark Palmer MD @ 08/01/2023 2:47:51 PM Signed by:?Mark Palmer MD @08/01/2023 2:47:51 PM (Electronic Signature)
--- NOTE | 2023-08-01 14:01 | ED_ITS ---
HPI - General Adult General Date Seen: 08/01/23 Chief complaint: Nausea/Vomiting Stated complaint: nausea,vomiting,congestion,fever Time Seen by Provider: 08/01/23 12:44 Source: patient Mode of arrival: ambulatory Limitations: no limitations History of Present Illness HPI narrative: Patient is a 58-year-old female presenting to the emergency department for multiple complaints. She has a several month history of intractable nausea at and abdominal pain but she cannot seem to get rid of. She has tried multiple nausea medications she says Compazine works the best. She has had endoscopies done showing no abnormalities. Her endoscopy was done on 07/07/2023 showed no abnormalities. She has been diagnosed with Jama's esophagus at [facility]. She still has constant discomfort in her esophagus. Taken multiple different medications for this also. Over the past week now she has been having sinus discomfort which she describes as moderate to severe. She states it is making her more nauseated is feels everything running down the back of her throat. She was started on Augmentin and states he initially felt better for I few days but then got worse this past Friday and vomited multiple times. She continues to be very nauseated. She states she has diffuse abdominal pain also. Was supposed to get a CT scan but that was canceled in lieu of seeing the ENT. Denies fevers, chills, chest pain, shortness of breath, lightheadedness, dizziness, hematemesis. She has been using Flonase at home without improvement in her symptoms. Related Data Home Medications Medication Instructions Recorded Confirmed fentanyl .Route 07/02/23 hydrochlorothiazide PO 07/02/23 hydromorphone 2 mg tablet 2 mg PO Q6H 07/02/23 07/02/23 (Dilaudid) hyoscyamine sulfate PO 07/02/23 lorazepam 1 mg tablet (Ativan) 1 mg PO DAILY 07/02/23 07/02/23 warfarin 5 mg tablet (Jantoven) 5 mg PO DAILY 07/02/23 08/01/23 warfarin 7.5 mg tablet (Jantoven) 7.5 mg PO DAILY 07/02/23 08/01/23 zolpidem 5 mg tablet (Ambien) 5 mg PO QHS 07/02/23 07/02/23 Allergies Allergy/AdvReac Type Severity Reaction Status Date / Time buprenorphine [From Ceci] Allergy Unknown Verified 07/02/23 13:38 ketorolac [From Toradol] Allergy Unknown Verified 07/02/23 13:38 Review of Systems Status of ROS: Reports: 10 or more systems reviewed and unremarkable except as noted in History and below Exam Narrative: Exam Narrative: Const: Well-nourished, Well-developed, in mild distress Eyes: PERRL, no conjunctival injection, and symmetrical lids HENT: Atraumatic external nose and ears. Moist mucous membranes. Tenderness to palpation bilateral frontal and maxillary sinuses, normal appearing Oropharynx, slightly swollen nasal turbinates bilaterally Neck: Symmetric, trachea midline, No thyromegaly. CVS: RRR, No murmurs or gallops. Peripheral pulses 2+ and equal in all extremities RESP: Unlabored respiratory effort. Clear to auscultation bilaterally. GI: Diffuse abdominal tenderness, Nondistended, No rebound or guarding. MSK:Extremities w/o deformity, Normal Active ROM Skin: Warm, Dry. No rashes or lesions. Neuro: Normal Muscle tone, No focal neurological deficits. Psych: Awake, Alert, & Oriented x3. Appropriate mood and affect. Const: Vital Signs, click to edit/add: Vital Signs - 24 hr 08/01/23 11:51 Temperature 97.8 F Pulse Rate [Right Pulse Oximeter] 86 Respiratory Rate 18 Blood Pressure [Ri ght Upper Arm] 119/82 Pulse Oximetry 96 Oxygen Delivery Me thod Room Air Course Vital Signs Vital signs: Initial Vital Signs Temperature 97.8 F 08/01/23 11:51 Temperature Source Temporal Artery Scan 08/01/23 11:51 Pulse Rate 86 08/01/23 11:51 Respiratory Rate 18 08/01/23 11:51 Blood Pressure 119/82 08/01/23 11:51 Blood Pressure Mean 94 08/01/23 11:51 Blood Pressure Position Sitting 08/01/23 11:51 Pulse Oximetry 96 08/01/23 11:51 Oxygen Delivery Method Room Air 08/01/23 11:51 Vital Signs Temperature 97.8 F 08/01/23 11:51 Pulse Rate 86 08/01/23 11:51 Respiratory Rate 18 08/01/23 11:51 Blood Pressure 119/82 08/01/23 11:51 Pulse Oximetry 96 08/01/23 11:51 Oxygen Delivery Method Room Air 08/01/23 11:51 Temperature 97.8 F 08/01/23 11:51 Pulse Rate 86 08/01/23 11:51 Respiratory Rate 18 08/01/23 11:51 Blood Pressure 119/82 08/01/23 11:51 Pulse Oximetry 96 08/01/23 11:51 Oxygen Delivery Method Room Air 08/01/23 11:51 Medications Administered Medications: Discontinued Medications Generic Name Dose Route Start Last Admin Trade Name Yue PRN Reason Stop Dose Admin Droperidol 2.5 mg 08/01/23 13:44 08/01/23 14:04 Droperidol 2.5 Mg/Ml Inj IV 08/01/23 13:45 2.5 mg ONCE ONE Administration Lorazepam 0.5 mg 08/01/23 15:08 08/01/23 15:18 Lorazepam 0.5 Mg Tablet PO 08/01/23 15:09 0.5 mg ONCE ONE Administration Prochlorperazine 10 mg 08/01/23 13:02 08/01/23 13:23 Prochlorperazine 5 Mg/Ml Vial IV 08/01/23 13:03 10 mg ONCE ONE Administration Medical Decision Making [facility] Narrative Medical decision making narrative: Patient is a 58-year-old female presenting to emergency department for multiple complaints. She is having issues with her sinuses in having abdominal pain. She was supposed to get an abdominal CT that was canceled. We will order that CT scan here. Also ordered COVID test was discharged week, CBC, CMP, lipase. We did order a urinalysis to. He while not the usual concerning her longstanding symptoms and everything else going on with her I do find reasonable to order a sinus CT on her at this time. Patient's lab work all returned showing no concerning abnormalities. She was still nauseous after the Compazine. We did EKG which showed a normal QTC and droperidol was ordered. This did help her symptoms for short time and I came back. History lab work showed no concerning abnormalities. She did not filling she had to urinate and I urinalysis was not collected. CT scan of the sinuses showed no acute causes of her symptoms. There is only some mild mucosal thickening. CT scan the abdomen pelvis showed no acute causes of be causing her pain. There is a likely benign hepatic lesion neck and not be characterized on CT along with a left adrenal nodule that can be further characterized on MRI. Patient was feeling some anxiety and she was given Ativan. At this time I am not sure was causing her problems but emergent issues have peer to be ruled also she will be discharged home. Lab Data Labs: Lab Results 08/01/23 08/01/23 08/01/23 Range/Units 11:59 13:18 14:45 WBC 7.05 (4.50-11.00) K/uL RBC 4.73 (4.00-5.20) m/uL Hgb 13.6 (12.0-16.0) gm/dL Hct 42.4 (33.0-51.0) % MCV 90 (80-100) fL MCH 29 (26-34) pg MCHC 32 (32-36) gm/dL RDW Coeff of [place] 12.6 (11.5-15.5) % Plt Count 191 (140-440) K/uL Neut % (Auto) 73.6 H (42.0-72.0) % Lymph % (Auto) 20.0 (20-44) % [place] % (Auto) 4.3 (0.0-11.0) % Eos % (Auto) 1.4 (0.0-7.0) % Baso % (Auto) 0.6 (0.0-3.0) % Neut # (Auto) 5.20 (1.7-7.0) K/uL Lymph # (Auto) 1.41 (0.90-2.90) K/uL [place] # (Auto) 0.30 (0.00-0.90) K/UL Eos # (Auto) 0.10 (0.00-0.50) K/uL Baso # (Auto) 0.04 (0.00-0.30) K/uL Abs Immat Gran (auto) 0.01 (0.00-0.30) K/uL Imm/Tot Granulo (auto) 0.1 % Sodium 139 (135-149) mmol/L Potassium 4.3 (3.6-5.1) mmol/L Chloride 106 (96-114) mmol/L Carbon Dioxide 25 (20-32) mmol/L Anion Gap 8 (7-15) mEq/L BUN 15 (7-30) mg/dL Creatinine 0.9 (0.5-1.5) mg/dL Estimated Creat Clear 64.56 Estimated GFR 75 ml/min Glucose 100 (60-115) mg/dL Calcium 9.3 (8.4-10.6) mg/dL Total Bilirubin 0.7 (0.1-1.5) mg/dL AST 20 (12-35) U/L ALT 15 (4-35) U/L Alkaline Phosphatase 80 (40-150) U/L Total Protein 7.1 (6.0-8.3) g/dL Albumin 4.2 (3.3-5.0) g/dL Lipase 94 (23-300) U/L Urine Color Yellow (Yellow) Urine Appearance Clear (Clear) Urine pH 7.0 (5.0-8.5) Ur Specific [place] 1.015 (1.000-1.030) Urine Protein Negative (Negative) Urine Glucose (UA) Negative (Negative) Urine Ketones Negative (Negative) Urine Blood Negative (Negative) Urine Nitrite Negative (Negative) Urine Bilirubin Negative (Negative) Urine Urobilinogen 0.2 (0.2-1.0) Ur Leukocyte Esterase Negative (Negative) Urine RBC 0-2 (0-2) Urine WBC 0-2 (0-5) Ur Squamous Epith Cells Few (None-Few) Urine Bacteria Few A (None) SARS-CoV-2 (PCR) Negative SARS-CoV-2 (Negative) Influenza Type A (PCR) Negative PCR FLU A (Negative) Influenza Type B (PCR) Negative PCR FLU B (Negative) RSV (PCR) Negative PCR RSV (Negative) Imaging Data Sinus CT: Radiologist's impression: 1. Minimal chronic appearing mucosal thickening involving the ethmoid air cells and the floor of the left maxillary sinus. The sinuses are otherwise overall unremarkable. 2. Patent ostiomeatal units. 3. Nasal septum is midline. 4. No abnormal soft tissue within the nasal cavity. 5. Incidental aplasia of the frontal sinuses, normal variation. 6. Incidental torus palatinus Please note that all CT scans at this facility use dose modulation, iterative reconstruction, and/or weight-based dosing when appropriate to reduce radiation dose to as low as reasonably achievable. Dictated by Mark Palmer MD @ 08/01/2023 2:47:51 PM (Electronic Signature) CT scan abdomen and pelvis: Radiologist's impression: 1. No specific visible cause for pain. 2. Indeterminate but probably benign hepatic lesion. This is too small to characterize by CT. 3. Indeterminate left adrenal nodule measuring 2.5 centimeters. This could likely be more fully characterized by MRI which should be considered. 4. Small focal area of renal cortical scarring in the lower pole of the left kidney. 5. Other incidental nonacute appearing findings as above. Please note that all CT scans at this facility use dose modulation, iterative reconstruction, and/or weight-based dosing when appropriate to reduce radiation dose to as low as reasonably achievable. Dictated by Mark Palmer MD @ 08/01/2023 1:58:23 PM ECG Data Attestation: I personally reviewed and interpreted this ECG as follows: Prior ECG tracings: not available for review Interpretation: Normal sinus rhythm rate 71 beats per minute, rightward axis, normal intervals, no ST or T-wave abnormalities Discharge Plan Discharge Clinical Impression: Nausea & vomiting Qualifiers: Vomiting type: unspecified Qualified Code(s): R11.2 - Nausea with vomiting, unspecified Patient Disposition: Home, Self-Care Condition: Stable Instructions: Acute Nausea and Vomiting (ED) Additional Instructions: Keep following up with a outside providers. Return to emergency department for new or worsening symptoms Imaging did show likely benign hepatic lesion and a indeterminate left adrenal nodule that can both be better visualized on MRI. Follow-up with the primary care provider about these findings. I do not believe these findings would be causing your symptoms Prescriptions: No Action fentanyl .Route hydromorphone [Dilaudid] 2 mg tablet 2 mg PO Q6H zolpidem [Ambien] 5 mg tablet 5 mg PO QHS Rx Instructions: may repeat once if no response in 30-60 minutes lorazepam [Ativan] 1 mg tablet 1 mg PO DAILY hyoscyamine sulfate PO hydrochlorothiazide PO warfarin [Jantoven] 5 mg tablet 5 mg PO DAILY warfarin [Jantoven] 7.5 mg tablet 7.5 mg PO DAILY Follow Up/Referrals: Provider,Not a Local [Primary Care Provider] - Stand Alone Forms: [email or web address] Info Instructions
[2023-08-01] MEDS: droperidoL 2.5 MG/ML inj IV (14:04)
[2023-08-01] MEDS: LORazepam 0.5 MG TABLET PO (15:18)
[2023-08-01 15:21] LABS: Appearance Urine Clear (Clear); Bilirubin Urine Negative (Negative); Blood Urine Negative (Negative); Color Urine Yellow (Yellow); Glucose Urine Negative (Negative); Ketones Urine Negative (Negative); Leukocyte Esterase Urine Negative (Negative); Nitrite Urine Negative (Negative); Protein Urine Negative (Negative); Specific Gravity Urine 1.015 (1.000-1.030); Urobilinogen Urine 0.2 (0.2-1.0)
[2023-08-01 15:36] LABS: Bacteria Urine Few; RBC Urine 0-2 (0-2); Squamous Epithelial Cell Urine Few (None-Few); WBC Urine 0-2 (0-5)
== END 2023-08-01 15:27 | disposition home or self-care (01) ==
PROVIDERS: Emergency Provider Student in an Organized Health Care Education/Training Program
DX: R11.2 Nausea with vomiting, unspecified (principal)
CPT/HCPCS: 36415; 70486; 74177; 80053; 81001; 83690; 85025; 87086; 87186; 87631; 93005; 96374; 99283; 99284; 99285; A9270; J0780; J1790; Q9967